=== PATIENT | male | born 1975 | race Caucasian/White ===

== ENCOUNTER 2017-07-25 15:38 | Emergency (ER) | payer MEDICAID, SELFPAY ==
[2017-07-25 15:39] VITALS: BP 147/104; PULSE 98; RESP 16; TEMP 36.7; O2SAT 98; BMI 26.5
--- NOTE | 2017-07-25 16:13 | CT_ITS ---
CT Abdomen And Pelvis W/ Contrast INDICATION: RIGHT SIDED PAIN X 1 YEAR BUT WORSE PAST 2 DAYS,NAUSEA AND CONSTIPATION, PRIOR CHOLECYSTECTOMY,MVP COMPARISON: None TECHNIQUE: Axial CT imaging of the abdomen and pelvis with oral and IV contrast. Coronal and sagittal reformatted images. Radiation dose optimization technique applied. 100 mL of Isovue-300 were given intravenously. FINDINGS: Subsegmental atelectasis are seen in the posterior lung bases. The heart size is normal. The liver, spleen, adrenal glands, and pancreas are unremarkable. The gallbladder is surgically absent. The kidneys are without evidence of hydronephrosis. Bilateral small cortical renal cysts are noted and a 4 mm nonobstructing renal calculus in the inferior pole region of the right kidney. Oral contrast material advances regularly throughout the nondistended small bowel loops into the proximal colon. The appendix is unremarkable. There is scattered distal colonic diverticulosis without evidence of acute diverticulitis. The urinary bladder is physiologically distended and appears otherwise unremarkable. There is no evidence of free air or free fluid. The osseous structures are age-appropriate. CT/Abdomen/Pelvis WITH Contrast IMPRESSION: No convincing CT evidence of acute intra-abdominal or pelvic pathology. Normal appendix. Status post cholecystectomy. Nonobstructing right renal calculus. Small bilateral renal cysts. Scattered distal colonic diverticulosis without evidence of acute diverticulitis. at 1853 Reported and signed by: Kaylee Crum MD Electronically Signed: Kaylee Crum MD at 17:51 EST Tel , Service support ,
--- NOTE | 2017-07-25 16:13 | ED.VISSUMM ---
- ER Visit Summary Date of Service: 07/25/17 Chief Complaint: Abdominal pain History of Present Illness: The patient is a 41 M who presents with abdominal pain for 2-3 months. It waxes and wanes in intensity. Patient states it is worse after eating and with deep breaths and improves with a heating pad. He has associated nausea but denies vomiting. He describes it as a bloated sensation. He denies diarrhea but endorses constipation, with last bowel movement 3 days ago. He ate pizza and eggs today with severe worsening of his pain. He states he is seen as primary care doctor for this and had a negative CT scan. He was started on Maalox but no other medications. Patient states last year he had a colonoscopy and an upper endoscopy for similar symptoms and had polyps that were removed but no other findings. History of cholecystectomy. Kidney stones. Mitral valve prolapse. Physical Examination: Vital signs: afebrile, hemodynamically stable, no hypoxia on room air General: well nourished, well developed, in no distress Skin: warm, dry, no rash, no pallor HEENT: normocephalic and atraumatic; PERRL, EOMI, moist mucous membranes Cardiovascular: regular rate and rhythm without murmurs, no peripheral edema, 2+ pulses all distal extremities Respiratory: No increased work of breathing, lungs have mild rhonchi consistent with smoker's lung Abdominal: Abdomen is soft, diffusely tender with hyperactive bowel sounds, no guarding or rebound, no masses MSK: Moves all extremities, no deformities, normal strength Neuro: Awake and alert, oriented ?4. No facial droop, sensation and motor function intact and symmetric Test Results: Abnormal Lab Results 07/25/17 07/25/17 07/25/17 16:19 16:19 16:44 WBC 6.7 RBC 4.39 L Hgb 13.5 Hct 41.2 MCV 93.8 MCH 30.8 MCHC 32.8 RDW 14.0 RDW Differential 47.9 H Plt Count 171 MPV 10.3 Immature Gran % (Auto) 0.100 Neut % (Auto) 67.4 Lymph % (Auto) 22.6 Taliaferro % (Auto) 7.2 Eos % (Auto) 2.4 Baso % (Auto) 0.3 Absolute Neuts (auto) 4.5 Absolute Lymphs (auto) 1.51 Total Counted Not Reportable Sodium 139 Potassium 4.1 Chloride 106 Carbon Dioxide 25.0 Anion Gap 8 BUN 13 Creatinine 1.01 Estim Creat Clear Calc 97.37 Est GFR (MDRD) Af Amer 103 Est GFR (MDRD) Non-Af 85 BUN/Creatinine Ratio 12.9 Glucose 104 Calcium 8.8 Total Bilirubin 0.30 AST 47 H ALT 33 Alkaline Phosphatase 78 Total Protein 7.3 Albumin 3.7 Globulin 3.6 Albumin/Globulin Ratio 1.0 Lipase 178 Urine Color Yellow Urine Clarity Cloudy Urine pH 8.0 Ur Specific [place] 1.015 Urine Protein Negative Urine Glucose (UA) Normal Urine Ketones Negative Urine Occult Blood 25 H Urine Nitrite Negative Urine Bilirubin Negative Urine Urobilinogen Normal Ur Leukocyte Esterase Negative Urine RBC 0-5 SEEN Urine WBC 0 SEEN Ur Squamous Epith Cells 0-5 SEEN Amorphous Sediment 1+ Urine Bacteria RARE Urine Mucus 0 SEEN Emergency Department Course and Treatment: Patient presents for abdominal pain that has been worked up by his primary care doctor and by a GI specialist. Patient is complaining of worsening pain and does not have a CT scan with contrast recently, thus lab work and a CT scan were repeated. Labs were unremarkable, including no hepatic derangements or elevated lipase. CT of the abdomen and pelvis was performed with IV and p.o. contrast. It was unremarkable for any pathology to explain patient's current symptoms. He was given IV fluids, and a GI cocktail. He stated that made it worse. He was then given Bentyl and a prescription for Protonix and Bentyl. He is to follow-up with his doctor for further workup. We discussed that there is nothing further workup monroy that can be performed in the emergency department. He requested an MRI and I explained to him that that was not an emergency department test that is even indicated. She was discharged home. Treatment Plan: [] Disposition: [] Impression: Chronic abdominal pain This note was generated with [employer] dictation software. 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 You had normal blood work today and a normal CT scan of the abdomen and pelvis that was done with oral and IV contrast dye. Please use the Bentyl as needed for abdominal pain. Take the omeprazole to help with stomach acid. Avoid acidy foods, greasy foods, tomato-based foods, and receive foods to see if this helps her stomach pain. Return to the emergency department if you have any further concerns.
--- NOTE | 2017-07-25 16:16 | ED.DCSUM_ITS ---
- ER Visit Summary Date of Service: 07/25/17 Chief Complaint: Abdominal pain History of Present Illness: The patient is a 41 M who presents with abdominal pain for 2-3 months. It waxes and wanes in intensity. Patient states it is worse after eating and with deep breaths and improves with a heating pad. He has associated nausea but denies vomiting. He describes it as a bloated sensation. He denies diarrhea but endorses constipation, with last bowel movement 3 days ago. He ate pizza and eggs today with severe worsening of his pain. He states he is seen as primary care doctor for this and had a negative CT scan. He was started on Maalox but no other medications. Patient states last year he had a colonoscopy and an upper endoscopy for similar symptoms and had polyps that were removed but no other findings. History of cholecystectomy. Kidney stones. Mitral valve prolapse. Physical Examination: Vital signs: afebrile, hemodynamically stable, no hypoxia on room air General: well nourished, well developed, in no distress Skin: warm, dry, no rash, no pallor HEENT: normocephalic and atraumatic; PERRL, EOMI, moist mucous membranes Cardiovascular: regular rate and rhythm without murmurs, no peripheral edema, 2 + pulses all distal extremities Respiratory: No increased work of breathing, lungs have mild rhonchi consistent with smoker's lung Abdominal: Abdomen is soft, diffusely tender with hyperactive bowel sounds, no guarding or rebound, no masses MSK: Moves all extremities, no deformities, normal strength Neuro: Awake and alert, oriented ?4. No facial droop, sensation and motor function intact and symmetric Test Results: Abnormal Lab Results 07/25/17 07/25/17 07/25/17 16:19 16:19 16:44 WBC 6.7 RBC 4.39 L Hgb 13.5 Hct 41.2 MCV 93.8 MCH 30.8 MCHC 32.8 RDW 14.0 RDW Differential 47.9 H Plt Count 171 MPV 10.3 Immature Gran % (Auto) 0.100 Neut % (Auto) 67.4 Lymph % (Auto) 22.6 Bailey % (Auto) 7.2 Eos % (Auto) 2.4 Baso % (Auto) 0.3 Absolute Neuts (auto) 4.5 Absolute Lymphs (auto) 1.51 Total Counted Not Reportable Sodium 139 Potassium 4.1 Chloride 106 Carbon Dioxide 25.0 Anion Gap 8 BUN 13 Creatinine 1.01 Estim Creat Clear Calc 97.37 Est GFR (MDRD) Af Amer 103 Est GFR (MDRD) Non-Af 85 BUN/Creatinine Ratio 12.9 Glucose 104 Calcium 8.8 Total Bilirubin 0.30 AST 47 H ALT 33 Alkaline Phosphatase 78 Total Protein 7.3 Albumin 3.7 Globulin 3.6 Albumin/Globulin Ratio 1.0 Lipase 178 Urine Color Yellow Urine Clarity Cloudy Urine pH 8.0 Ur Specific [place] 1.015 Urine Protein Negative Urine Glucose (UA) Normal Urine Ketones Negative Urine Occult Blood 25 H Urine Nitrite Negative Urine Bilirubin Negative Urine Urobilinogen Normal Ur Leukocyte Esterase Negative Urine RBC 0-5 SEEN Urine WBC 0 SEEN Ur Squamous Epith Cells 0-5 SEEN Amorphous Sediment 1+ Urine Bacteria RARE Urine Mucus 0 SEEN Emergency Department Course and Treatment: Patient presents for abdominal pain that has been worked up by his primary care doctor and by a GI specialist. Patient is complaining of worsening pain and does not have a CT scan with contrast recently, thus lab work and a CT scan were repeated. Labs were unremarkable, including no hepatic derangements or elevated lipase. CT of the abdomen and pelvis was performed with IV and p.o. contrast. It was unremarkable for any pathology to explain patient's current symptoms. He was given IV fluids, and a GI cocktail. He stated that made it worse. He was then given Bentyl and a prescription for Protonix and Bentyl. He is to follow-up with his doctor for further workup. We discussed that there is nothing further workup monroy that can be performed in the emergency department. He requested an MRI and I explained to him that that was not an emergency department test that is even indicated. She was discharged home. Treatment Plan: [] Disposition: [] Impression: Chronic abdominal pain This note was generated with [employer] dictation software. 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 You had normal blood work today and a normal CT scan of the abdomen and pelvis that was done with oral and IV contrast dye. Please use the Bentyl as needed for abdominal pain. Take the omeprazole to help with stomach acid. Avoid acidy foods, greasy foods, tomato- based foods, and receive foods to see if this helps her stomach pain. Return to the emergency department if you have any further concerns.
[2017-07-25 16:34] LABS: Absolute Lymphocyte Count 1.51 X10^3/ul (0.83-4.51); Absolute Neutrophil Count 4.5 X10^3/uL (2.0-7.7); Basophil# 0.02 X10^3/uL; Basophil% 0.3 % (0-1); Eosinophil# 0.16 X10^3/uL; Eosinophils% 2.4 % (0-5); Hematocrit 41.2 % (40-54); Hemoglobin 13.5 g/dl (13.0-16.5); Lymphocyte # 1.51 X10^3/ul (4.0); Lymphocyte % 22.6 % (19-41); Mean Corp Hgb Conc 32.8 g/gl (32-36); Mean Corpuscular Hgb 30.8 pg (27.0-32.0); Mean Corpuscular Volume 93.8 fL (80-94); Mean Platelet Vol. 10.3 fl (6.2-12.0); Monocyte# 0.48 X10^3/uL; Monocyte% 7.2 % (0-10); Neutrophil # 4.51 X10^3/uL (2.7-7.7); Neutrophil % 67.4 % (47-70); POSITIVE COUNT NO; POSITIVE DIFFERENTIAL NO; POSITIVE MORPHOLOGY NO; Platelet Count 171 K/mm3 (150-450); RBC Distribution Width SD 47.9 fl (35.1-43.9); Red Blood Count 4.39 M/mm3 (4.6-6.2); White Blood Count 6.7 K/mm3 (4.4-11.0)
[2017-07-25] MEDS: 0.9% Normal Saline 1,000 ML 1000 ML IV (16:40)
[2017-07-25 16:50] LABS: Mucous, Urine 0 SEEN /hpf (<or=2+); White Blood Cells 0 SEEN /hpf (0-5)
[2017-07-25 16:53] LABS: Color, Urine Yellow (Yellow); Glucose, Dipstick Normal (Normal); Ketone-Dipstick Negative (Negative); Leukocyte Esterase-Dipstick Negative /ul (Negative); Nitrite-Dipstick Negative (Negative); Occult Blood-Urine 25 /ul (Negative); Protein-Dipstick Negative (Negative); Specific Gravity, Urine 1.015 (1.002-1.030); Urine Bilirubin Dipstick Negative (Negative); Urine Clarity Cloudy (Clear); Urine Urobilinogen Normal (Normal)
[2017-07-25 16:58] LABS: AST(SGOT) 47 U/L (15-37); Alanine Aminotransfer ALT/SGPT 33 U/L (12-78); Albumin, Serum 3.7 g/dL (3.4-5.0); Alkaline Phosphatase 78 U/L (45-117); Anion Gap 8 (5-15); BUN 13 mg/dL (7-18); BUN/Creat Ratio 12.9 RATIO (10-20); Calcium,Total 8.8 mg/dL (8.5-10.1); Chloride 106 mmol/L (98-107); Creatinine, Serum 1.01 mg/dL (0.70-1.30); EST Glomerular Filtration Rate 85 mL/min (>60); Est Glom Filt Rate - Afr Amer 103 mL/min (>60); Estimated Creatinine Clearance 97.37 ml/min; Globulin 3.6 g/dL (2.2-4.2); Glucose 104 mg/dL (70-110); Lipase 178 U/L (73-393); Potassium 4.1 mmol/L (3.5-5.1); Protein, Total 7.3 g/dL (6.4-8.2); Sodium Level 139 mmol/L (136-145)
[2017-07-25 17:04] LABS: Amorphous Sediment 1+; Bacteria RARE /hpf (None Seen); Red Blood Cells-Urine 0-5 SEEN /hpf (0-5); Squamous Epithelial Cells - UA 0-5 SEEN /hpf (0-5)
--- NOTE | 2017-07-25 19:23 | ED.DEP ---
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 You had normal blood work today and a normal CT scan of the abdomen and pelvis that was done with oral and IV contrast dye. Please use the Bentyl as needed for abdominal pain. Take the omeprazole to help with stomach acid. Avoid acidy foods, greasy foods, tomato-based foods, and receive foods to see if this helps her stomach pain. Return to the emergency department if you have any further concerns.
[2017-07-25] MEDS: Dicyclomine 10 MG Capsule 20 MG PO (19:26)
[2017-07-25 19:28] VITALS: BP 145/95; PULSE 78; RESP 16; O2SAT 97
== END 2017-07-25 19:34 | disposition home or self-care (01) ==
PROVIDERS: Emergency Provider Emergency Medicine; Family Provider Family Medicine; PCP Family Medicine
DX: G89.29 Other chronic pain (principal); R10.9 Unspecified abdominal pain; K59.00 Constipation, unspecified; Z72.0 Tobacco use; Z87.442 Personal history of urinary calculi; Z90.49 Acquired absence of other specified parts of digestive tract
CPT/HCPCS: 74177; 80053; 81001; 83690; 85025; 96360; 99284; J7030; Q9967; A4216

== ENCOUNTER 2018-01-09 12:11 | Emergency (ER) | payer MEDICAID, SELFPAY ==
[2018-01-09 12:13] VITALS: BP 138/100; PULSE 72; RESP 16; TEMP 36.9; O2SAT 98; BMI 29.4
--- NOTE | 2018-01-09 12:31 | ED.VISSUMM ---
- ER Visit Summary Date of Service: 01/09/18 Chief Complaint: [Head injury] History of Present Illness: The patient is a 42 M [presents the emergency department with complaint of a head injury that occurred 5 days ago. Patient states he was helping a friend and was cranking on a crank from a semi-trailer when it excellently spun back and struck him in the right side of the head. Patient did not have a loss of consciousness. Patient was seen at [facility] and had his laceration repaired on the initial visit but had no imaging. Patient states that he continued to have a headache and went back the following day at which time they did a CAT scan of his brain which was unremarkable. Patient states that he is concerned as he is having ongoing drowsiness typically around midday. Patient having intermittent headaches. 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 Patient's had some mild nausea intermittently but no vomiting. Patient denies any difficulty with balance or speech.] Physical Examination: [HEENT-PERRLA, EOMI. Cranial nerves II through XII grossly intact. TMs clear. Mucous membranes moist. No adenopathy. There is approximately 3 cm laceration over the right parietal scalp that is healing well. No signs of infection. There is no evidence of swelling or edema to the right side of the scalp or head. Cardiovascular-regular rate and rhythm without murmur or ectopy Lungs-clear to auscultation, chest wall stable without crepitus or subcu emphysema Abdomen-normoactive bowel sounds, soft, nontender, no rebound or rigidity, no peritoneal signs. Neuro [id number]-pkwl and heel to rucker testing within normal limits, negative Romberg, negative pronator drift, fundi benign. Extremities-intact ?4, normal range of motion, normal pulses, atraumatic] Test Results: [None indicated] Emergency Department Course and Treatment: [Patient advised use ibuprofen or Tylenol for discomfort. I suspect patient likely has a postconcussive type syndrome and I do not feel any further imaging is dictated at this time.] Treatment Plan: [Patient to follow-up with his primary care physician in 2 days for suture removal. Patient advised to return if vomiting, difficulty with balance or speech, or condition should worsen in any way.] Disposition: [Discharged home in stable condition] Impression: [Concussion] This note was generated with [employer] dictation software. It may contain incorrect words, spelling, and punctuation that were not noted in review of the chart prior to signing ED Disposition - Plan for ED Patient: Chief Complaint: General Illness Referrals: Bernardo Agustin MD [Primary Care Provider] -
--- NOTE | 2018-01-09 12:35 | ED.DCSUM_ITS ---
- ER Visit Summary Date of Service: 01/09/18 Chief Complaint: [Head injury] History of Present Illness: The patient is a 42 M [presents the emergency department with complaint of a head injury that occurred 5 days ago. Patient states he was helping a friend and was cranking on a crank from a semi-trailer when it excellently spun back and struck him in the right side of the head. Patient did not have a loss of consciousness. Patient was seen at [facility] and had his laceration repaired on the initial visit but had no imaging. Patient states that he continued to have a headache and went back the following day at which time they did a CAT scan of his brain which was unremarkable. Patient states that he is concerned as he is having ongoing drowsiness typically around midday. Patient having intermittent headaches. 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 Patient's had some mild nausea intermittently but no vomiting. Patient denies any difficulty with balance or speech.] Physical Examination: [HEENT-PERRLA, EOMI. Cranial nerves II through XII grossly intact. TMs clear. Mucous membranes moist. No adenopathy. There is approximately 3 cm laceration over the right parietal scalp that is healing well. No signs of infection. There is no evidence of swelling or edema to the right side of the scalp or head. Cardiovascular-regular rate and rhythm without murmur or ectopy Lungs-clear to auscultation, chest wall stable without crepitus or subcu emphysema Abdomen-normoactive bowel sounds, soft, nontender, no rebound or rigidity, no peritoneal signs. Neuro firt-ikmfoc-ycbv and heel to rucker testing within normal limits, negative Romberg, negative pronator drift, fundi benign. Extremities-intact ?4, normal range of motion, normal pulses, atraumatic] Test Results: [None indicated] Emergency Department Course and Treatment: [Patient advised use ibuprofen or Tylenol for discomfort. I suspect patient likely has a postconcussive type syndrome and I do not feel any further imaging is dictated at this time.] Treatment Plan: [Patient to follow-up with his primary care physician in 2 days for suture removal. Patient advised to return if vomiting, difficulty with balance or speech, or condition should worsen in any way.] Disposition: [Discharged home in stable condition] Impression: [Concussion] This note was generated with [employer] dictation software. It may contain incorrect words, spelling, and punctuation that were not noted in review of the chart prior to signing ED Disposition - Plan for ED Patient: Chief Complaint: General Illness Referrals: Bernardo Agustin MD [Primary Care Provider] -
--- NOTE | 2018-01-09 12:35 | ED.DEP ---
ED Disposition - Plan for ED Patient: Chief Complaint: General Illness Instructions: ED Concussion Referrals: Bernardo Agustin MD [Primary Care Provider] - 2 Days
== END 2018-01-09 12:45 | disposition home or self-care (01) ==
LOC: ED 12:41
PROVIDERS: Emergency Provider Emergency Medicine; Family Provider Family Medicine; PCP Family Medicine
DX: S06.0X0A Concussion without loss of consciousness, initial encounter (principal); W22.8XXA Striking against or struck by other objects, initial encounter; Y93.9 Activity, unspecified; Y92.89 Other specified places as the place of occurrence of the external cause; Y99.9 Unspecified external cause status; Z72.0 Tobacco use
CPT/HCPCS: 99282

== ENCOUNTER 2018-09-23 17:39 | Emergency (ER) | payer MEDICAID, SELFPAY ==
[2018-09-23 17:40] VITALS: BP 160/95; PULSE 82; RESP 16; TEMP 36.4; O2SAT 97; BMI 30.7
--- NOTE | 2018-09-23 18:41 | ED.VISSUMM ---
- ER Visit Summary Date of Service: 09/23/18 Chief Complaint: Abdominal pain and cramping History of Present Illness: The patient is a 42 M who presents with abdominal pain and cramping that began today. Patient states the pain is over the upper abdomen. Patient states he bent forward and felt some cramping in his abdomen. Patient states he was able to stretch and the cramping improved. Patient states he still has some pain over the upper abdomen. Patient states the pain is worse with movement. Patient denies any nausea or vomiting. Patient denies any diarrhea, melena, or hematochezia. Patient denies any urinary complaints. Physical Examination: Vital signs are stable. Patient is afebrile. Patient is in no acute distress. Oral mucosa is pink and moist. Neck is supple. Trachea is midline. Heart was regular rate and rhythm. Lungs are clear and equal bilateral. Abdomen is soft. Bowel sounds are normal. There is some mild upper abdominal tenderness. There is no rebound or guarding noted. Test Results: CBC, conference of metabolic profile, and lipase were obtained and were normal. Emergency Department Course and Treatment: Patient was given IV fluids. Patient felt better on reevaluation. Patient was instructed to follow-up with his primary care physician in 5-7 days. Patient was instructed to drink plenty of fluids. Patient understood and was agreeable with the plan. All questions were answered. Disposition: Discharge home Impression: Abdominal pain This note was generated with [employer] dictation software. It may contain incorrect words, spelling, and punctuation that were not noted in review of the chart prior to signing ED Disposition - Plan for ED Patient: Disposition: Home or Assisted Living Diagnosis: Abdominal pain in male Instructions: ED Abdominal Pain Unkn Cause Referrals: Bernardo Agustin MD [Primary Care Provider] - 1-2 Weeks
[2018-09-23 18:44] LABS: Absolute Lymphocyte Count 2.79 X10^3/ul (0.83-4.51); Absolute Neutrophil Count 6.1 X10^3/uL (2.0-7.7); Basophil# 0.01 X10^3/uL; Basophil% 0.1 % (0-1); Eosinophil# 0.04 X10^3/uL; Eosinophils% 0.4 % (0-5); Hematocrit 41.2 % (40-54); Hemoglobin 13.9 g/dl (13.0-16.5); Lymphocyte # 2.79 X10^3/ul (4.0); Lymphocyte % 28.9 % (19-41); Mean Corp Hgb Conc 33.7 g/gl (32-36); Mean Corpuscular Hgb 30.4 pg (27.0-32.0); Mean Corpuscular Volume 90.2 fL (80-94); Mean Platelet Vol. 10.2 fl (6.2-12.0); Monocyte# 0.68 X10^3/uL; Monocyte% 7.1 % (0-10); Neutrophil # 6.09 X10^3/uL (2.7-7.7); Neutrophil % 63.2 % (47-70); Platelet Count 226 K/mm3 (150-450); RBC Distribution Width CV 13.3 % (11.6-14.6); RBC Distribution Width SD 43.7 fl (35.1-43.9); Red Blood Count 4.57 M/mm3 (4.6-6.2); White Blood Count 9.6 K/mm3 (4.4-11.0)
[2018-09-23 18:45] LABS: POSITIVE COUNT NO; POSITIVE DIFFERENTIAL NO; POSITIVE MORPHOLOGY NO
[2018-09-23] MEDS: 0.9% Normal Saline 1,000 ML 1000 ML IV (18:50)
[2018-09-23 18:57] LABS: AST(SGOT) 39 U/L (15-37); Alanine Aminotransfer ALT/SGPT 37 U/L (16-61); Albumin, Serum 3.7 g/dL (3.2-5.0); Alkaline Phosphatase 89 U/L (45-117); Anion Gap 4 (5-15); BUN 17 mg/dL (7-18); BUN/Creat Ratio 15.2 RATIO (10-20); Chloride 107 mmol/L (98-107); Creatinine, Serum 1.12 mg/dL (0.70-1.30); EST Glomerular Filtration Rate 75 mL/min (>60); Est Glom Filt Rate - Afr Amer 91 mL/min (>60); Globulin 3.8 g/dL (2.2-4.2); Glucose 94 mg/dL (74-106); Lipase 117 U/L (73-393); Potassium 3.5 mmol/L (3.5-5.1); Protein, Total 7.5 g/dL (6.4-8.2); Sodium Level 138 mmol/L (136-145)
[2018-09-23 19:37] VITALS: RESP 18; O2SAT 99
== END 2018-09-23 19:38 | disposition home or self-care (01) ==
PROVIDERS: Emergency Provider Emergency Medicine; Family Provider Family Medicine; PCP Family Medicine
DX: R10.9 Unspecified abdominal pain (principal); M54.9 Dorsalgia, unspecified; E66.9 Obesity, unspecified; R06.09 Other forms of dyspnea; F17.210 Nicotine dependence, cigarettes, uncomplicated; Z79.82 Long term (current) use of aspirin; M19.90 Unspecified osteoarthritis, unspecified site
CPT/HCPCS: 80053; 83690; 85025; 96360; 99283

== ENCOUNTER 2018-12-09 16:09 | Observation (INO) | payer MEDICAID, SELFPAY ==
[2018-12-09 16:15] VITALS: BMI 31.0
[2018-12-09 16:17] VITALS: BP 126/76; PULSE 67; RESP 14; TEMP 36.6; O2SAT 97
[2018-12-09 16:38] VITALS: BMI 31.1
[2018-12-09 16:56] VITALS: PULSE 67
--- NOTE | 2018-12-09 17:22 | HP.PCM_ITS ---
<Ezequiel Mckeon - Last Filed: 12/09/18 17:18> Problem List (1) Chest pain Status: Acute (2) Mitral valve prolapse Status: Chronic (3) HTN (hypertension) Status: Chronic (4) Obesity Status: Chronic (5) Hiatal hernia Status: Chronic (6) GERD (gastroesophageal reflux disease) Status: Chronic (7) Thyroid nodule Status: Chronic (8) Osteoarthritis Status: Chronic (9) Spinal stenosis Status: Chronic (10) Tobacco abuse Status: Chronic History of Present Illness Date of Admission: 12/09/18 Chief Complaint: chest pain The patient is a 43 year old M with pmhx of heavy mcfp smoking, mitral valve prolapse, htn, GERD, hiatal hernia, thyroid nodule, spinal stenosis, osteoarthritis, who was sent here by [facility] where he c/o SOB and CP. He Has been SOB for the past two weeks. Later, he developed intermittent chest pains. These are described as right upper chest sharp pains. Today he looked up at a helicopter, became dizzy, and had chest pain return. He had complete resolution of this pain with 3x nitroglycerin in the ER. Currently he has no symptoms. EKG, CXR, and initial labs were unremarkable. He was supposed to have an outpatient echo, stress test, and thyroid ultrasound this week but his CP worsened. His father and mother had heart dz. He denies coronary disease. [] Past Medical History Past Medical History (Chronic Problems): Chronic Problems Mitral valve prolapse (Chronic) HTN (hypertension) (Chronic) Obesity (Chronic) Hiatal hernia (Chronic) GERD (gastroesophageal reflux disease) (Chronic) Thyroid nodule (Chronic) Osteoarthritis (Chronic) Spinal stenosis (Chronic) Tobacco abuse (Chronic) Allergies hydrocodone bitartrate [From Vicodin] Adverse Reaction (Verified 09/23/18 17:41) Nausea Home Medications: Ambulatory Orders Medication Instructions Recorded Aspirin [Aspirin, Baby] 81 mg PO DAILY@0800 01/09/18 Albuterol IH (ProAir) [Proair Hfa 2 puff INHALATION Q4H PRN PRN 12/09/18 (SP)Vent Pts] Bupropion HCl [Bupropion HCl Sr] 1 tab PO BID 12/09/18 Gabapentin [Neurontin] 300 mg PO TIDCM 12/09/18 Hydrochlorothiazide [Hctz] 25 mg PO QHS 12/09/18 Meloxicam 15 mg PO DAILY PRN 12/09/18 Pantoprazole Sodium [Protonix] 40 mg PO DAILY 12/09/18 Surgical History: cholecystectomy, - - Tib-fib surgery. Psychiatric History: Prior suicide attempt - Via overdose several years ago. Lives: With Family Smoking Status: Current every day smoker Tobacco Use: Cigarettes Alcohol: None Drugs: None - *Family History Maternal History Items: Heart Disease Paternal History Items: Heart Disease Review of Systems Constitutional: Denies: Chills, Fever, Weight Change HEENT: Denies: Head Aches, Sinus Congestion, Sinus Drainage Cardiovascular: Reports: Chest Pain, Light Headedness. Denies: Edema, Heaviness, Palpitations Respiratory: Denies: Cough, Shortness of breath at rest, Sputum production Gastrointestinal: Denies: Abdominal Pain, Nausea, Vomiting Genitourinary: Denies: Dysuria Musculoskeletal: Denies: Joint Pain, Joint Tenderness Skin: Denies: Rash, Wounds Neurological: Denies: Numbness, Tingling, Focal weakness Psychiatric: Denies: Anxiety, Depression, Homicidal Ideations, Suicidal Ideations Hematologic/ Lymphatic: Denies: Easy Bruising, Easy Bleeding VTE Information - Inpt Only VTE Present on Admission: No VTE Mechan Device Prophylaxis: None VTE Pharm Prophylaxis ordered?: Yes - Physical Exam General: Alert, Oriented x3, Cooperative HEENT: Atraumatic, PERRLA, EOMI, Normocephalic Neck: Supple, No JVD, Negative Carotid Bruits Lungs: Clear to auscultation, Normal air movement Cardiovascular: Regular rate, No murmurs Abdomen: Bowel Sounds Present, Soft, Non Tender Extremities: No edema, Capillary Refill Less than 3 Seconds Skin: No rashes, No breakdown Musculoskeletal: No Tenderness to Palpation of Joints or Extremities Neurological: Cranial nerves II-XII grossly intact Psych/Mental Status: Normal Affect, Appropriate, Alert and oriented to time, place, person, mood and affect Vital Signs Temp Pulse Resp BP Pulse Ox 98 F 67 14 126/76 H 97 12/09/18 16:17 12/09/18 16:56 12/09/18 16:17 12/09/18 16:17 12/09/18 16:17 Oxygen Delivery Method Room Air Weight: 216 lb 7.903 oz Body Mass Index (BMI) 31.0 Assessment/Plan All Active Problems Chest pain (Acute) 1. Chest pain - cycle enzymes, reviewed initial EKG and admission EKG, CXR report, and initial troponin - negative. Stress test in AM. + fm hx, + hx MVP, +hx HTN, +smoking hx +obesity hx. Concerning symptoms: + CP, SOB, dizziness, LH. 2. MVP - repeat echo 3. HTN - trend 4. Nicotine abuse - started wellbutrin as o/p, cut back from 2ppd to 1 ppd. 5. GERD/Hiatal hernia - ppi, o/p follow up 6. Thyroid nodule - o/p US. Check TSH. 7. Osteoarthritis and spinal stenosis - hold nsaids. DVT ppx: lovenox This patient was seen by Ezequiel Mckeon PA-C under the supervision of Dr. Goodman. <Roxanne Goodman - Last Filed: 12/09/18 20:38> Problem List (1) Mitral valve prolapse Status: Chronic (2) HTN (hypertension) Status: Chronic Qualifiers: Hypertension type: essential hypertension Qualified Code(s): I10 - Essential (primary) hypertension (3) Obesity Status: Chronic Qualifiers: Body mass index: unspecified BMI (4) GERD (gastroesophageal reflux disease) Status: Chronic Qualifiers: Esophagitis presence: esophagitis presence not specified Qualified Code(s): K21.9 - Gastro-esophageal reflux disease without esophagitis (5) Chest pain Status: Acute Qualifiers: Ischemic chest pain type: unspecified angina pectoris type History of Present Illness The patient is a 43 year old M [] Past Medical History Allergies hydrocodone bitartrate [From Vicodin] Adverse Reaction (Verified 09/23/18 17:41) Nausea - Physical Exam Vital Signs Temp Pulse Resp BP Pulse Ox 98 F 72 14 126/76 H 97 12/09/18 16:17 12/09/18 19:00 12/09/18 16:17 12/09/18 16:17 12/09/18 16:17 Oxygen Delivery Method Room Air Weight: 98.2 kg Body Mass Index (BMI) 31.0 Intake and Output for Last 24 Hours 12/07/18 12/08/18 12/09/18 23:59 23:59 23:59 Intake Total 480 / 480 Balance 480 / 480 Laboratory Tests Past 24 Hrs 12/09/18 18:20 Troponin I < 0.015 Assessment/Plan This patient was seen in conjunction with YRIS Farias. I have independently interviewed and examined the patient and reviewed pertinent historical, laboratory, and other data. Please refer to YRIS Farias note for his patient's presentation, findings, and recommendations. I have reviewed and his note and concur with his documentation CC: Chest pain HPI: 43-year-old male with past medical history of hypertension, history of mitral valve prolapse, nicotine dependence, recently started on Wellbutrin who comes in as a direct admission from [place] ED with complaints of chest pain. He complains of having chest pain ongoing for 2 weeks. He describes his chest pain as substernal sometimes right-sided, stabbing in nature, associated with some lightheadedness. He has a stress test pending this week. This has been coming and going. Today he saw a helicopter passed by and looked up and became very dizzy and had return of his chest pain. He went to the emergency department and had complete resolution of his pain with 3 of nitro. His admitting blood work and EKG was unremarkable as well as an initial troponin. PMHX: In addition to the above, patient has history of CAD/heart INR, thyroid nodule, osteoarthritis/spinal stenosis PSHx: Status post cholecystectomy, status post tib/fib surgery FHX: Mother -heart disease, paternal - heart disease SHX: Lives with , recently quit smoking, on Wellbutrin Physical Exam: Vitals: Temperature 98F, heart rate 57, blood pressure 126/76, respiratory rate is 40, SPO2 is 97% on room air Gen: Comfortable, not pale, not jaundiced, well hydrated CVS:HS I +II, regular, no murmurs RESP: Clinically clear to auscultation GI: BS present and normal, soft, nontender, no palpable organs EXT:No edema ASSESSMENT: 1. Chest pain 2. Recent nicotine use 3. Mitral valve prolapse 4. GERD/Hiatal hernia 5. Hypertension 6. Osteoarthritis/spinal stenosis Plan: Admit to PCU, trend troponin Stress test in am ECHO Continue home medications except for meloxicam Labs in am Code Visit OBSV E&M: [id number] Initial observation care L3
--- NOTE | 2018-12-09 18:00 | EKG12_ITS ---
Test Reason : CP ADMISSION Blood Pressure : / mmHG Vent. Rate : 062 BPM Atrial Rate : 062 BPM P-R Int : 166 ms QRS Dur : 100 ms QT Int : 408 ms P-R-T Axes : 038 -15 018 degrees QTc Int : 414 ms Normal sinus rhythm Normal ECG When compared with ECG of 27-FEB-2017 20:53, No significant change was found Confirmed by EMIGDIO TAVAREZ ([id number]), food editor NANDO STEIN ([id number]) on 12/13/2018 1:37:28 PM Referred By: Roxanne Goodman Confirmed By:JAYSHREE TAVAREZ
[2018-12-09 19:00] VITALS: PULSE 72
--- NOTE | 2018-12-09 19:08 | ECHOD_ITS ---
Reason For Study: Chest Pain Procedure This was a 2D Doppler, Color Flow transthoracic echocardiogram. Exam performed in department. Left Ventricle Normal size and thickness. Left ventricular systolic function is normal. The estimated ejection fraction is 60 %. Normal diastology for age. No regional wall motion abnormalities noted. Right Ventricle Normal RV size. Normal systolic function. Atria Normal left atrium. Normal right atrium. No doppler evidence for ASD. Mitral Valve There is no mitral valve stenosis. No mitral valve insufficiency. Tricuspid Valve There is no tricuspid stenosis. Unable to estimate RV systolic pressure due to insufficient tricuspid regurgitant envelope. Trivial tricuspid valve insufficiency. Aortic Valve Trisinus/trileaflet aortic valve. There is no aortic stenosis. No aortic valve insufficiency. Pulmonic Valve There is no pulmonic valvular stenosis. No pulmonic valve insufficiency. Great Vessels Normal aortic root. Pericardium/Pleural No pericardial effusion. MMode/2D Measurements & Calculations LVIDd: 4.2 cm IVSd: 1.0 cm Ao root diam: 2.5 cm LVIDs: 2.3 cm LVPWd: 1.1 cm LA dimension: 3.0 cm FS: 44.2 % LAV(MOD-bp): 43.0 ml LA A4 area: 16.9 cm2 RA A4 area: 14.2 cm2 LAV(MOD-bp) Indexed: 20.0 ml/m2 LAV(MOD-sp2): 33.8 ml LAV(MOD-sp4): 37.7 ml Time Measurements MV dec time: 0.25 sec Doppler Measurements & Calculations MV E max james: 75.1 cm/sec Lat Peak E' James: 13.2 cm/sec Med Peak E' James: 11.0 cm/sec MV A max james: 52.8 cm/sec E/E' lat: 5.7 E/E' med: 6.8 MV E/A: 1.4 MV V2 max: 81.5 cm/sec MV P1/2t max james: 81.5 cm/sec Ao V2 max: 118.8 cm/sec MV max P.7 mmHg MV P1/2t: 97.6 msec Ao max P.6 mmHg MV V2 mean: 40.5 cm/sec MV dec slope: 244.6 cm/sec2 Ao V2 mean: 80.3 cm/sec MV mean P.80 mmHg MVA(P1/2t): 2.3 cm2 Ao mean P.9 mmHg MV V2 VTI: 28.4 cm Ao V2 VTI: 23.1 cm LV V1 max: 109.6 cm/sec PA V2 max: 82.8 cm/sec LV V1 max P.8 mmHg LV V1 mean P.1 mmHg LV V1 mean: 66.4 cm/sec LV V1 VTI: 21.0 cm Interpretation Summary Left ventricular systolic function is normal. The estimated ejection fraction is 60 %. Normal diastology for age. Ordering Physician: Roxanne Goodman Referring Physician: Roxanne Goodman Performed By: Jordy Frye RCS
[2018-12-09 20:20] VITALS: O2SAT 97
[2018-12-09 22:00] VITALS: BP 102/51; PULSE 78; RESP 18; TEMP 36.5; O2SAT 95
[2018-12-09] MEDS: buPROPion (SR) 150 MG Tablet.SA PO (22:14)
[2018-12-10 03:06] VITALS: PULSE 72
[2018-12-10 03:31] VITALS: BP 105/69; PULSE 62; RESP 16; TEMP 36.7; O2SAT 94
[2018-12-10] MEDS: Aspirin 81 MG TAB.CHEW PO (05:35)
[2018-12-10 05:36] VITALS: BP 99/62; PULSE 66; RESP 16; TEMP 36.8; O2SAT 100
--- NOTE | 2018-12-10 05:55 | EKG12_ITS ---
Test Reason : AM EKG Blood Pressure : / mmHG Vent. Rate : 064 BPM Atrial Rate : 064 BPM P-R Int : 164 ms QRS Dur : 098 ms QT Int : 394 ms P-R-T Axes : 042 017 031 degrees QTc Int : 406 ms Normal sinus rhythm Normal ECG When compared with ECG of 09-DEC-2018 17:04, MANUAL COMPARISON REQUIRED, DATA IS UNCONFIRMED Confirmed by EMIGDIO TAVAREZ ([id number]), online content editor NANDO STEIN ([id number]) on 12/13/2018 1:36:39 PM Referred By: Roxanne Goodman Confirmed By:JAYSHREE TAVAREZ
[2018-12-10 07:32] LABS: Absolute Lymphocyte Count 1.77 X10^3/ul (0.83-4.51); Absolute Neutrophil Count 2.8 X10^3/uL (2.0-7.7); Basophil# 0.01 X10^3/uL; Basophil% 0.2 % (0-1); Eosinophil# 0.21 X10^3/uL; Eosinophils% 4.1 % (0-5); Hematocrit 42.4 % (40-54); Hemoglobin 14.1 g/dl (13.0-16.5); Lymphocyte # 1.77 X10^3/ul (4.0); Lymphocyte % 34.8 % (19-41); Mean Corp Hgb Conc 33.3 g/gl (32-36); Mean Corpuscular Volume 90.2 fL (80-94); Monocyte% 5.9 % (0-10); Platelet Count 191 K/mm3 (150-450); RBC Distribution Width CV 13.6 % (11.6-14.6); RBC Distribution Width SD 44.9 fl (35.1-43.9); White Blood Count 5.1 K/mm3 (4.4-11.0)
[2018-12-10 07:42] LABS: POSITIVE COUNT NO; POSITIVE DIFFERENTIAL NO; POSITIVE MORPHOLOGY NO
[2018-12-10 07:44] LABS: Anion Gap 2 (5-15); BUN 15 mg/dL (7-18); Calcium,Total 8.4 mg/dL (8.5-10.1); Chloride 109 mmol/L (98-107); Creatinine, Serum 1.36 mg/dL (0.70-1.30); EST Glomerular Filtration Rate 60 mL/min (>60); Est Glom Filt Rate - Afr Amer 73 mL/min (>60); Estimated Creatinine Clearance 70.82 ml/min; Glucose 108 mg/dL (74-106); Potassium 4.2 mmol/L (3.5-5.1); Sodium Level 137 mmol/L (136-145)
[2018-12-10 08:08] LABS: Prothrombin Time (Protime)PT. 13.3 SECONDS (11.7-14.9)
[2018-12-10 08:09] LABS: Partial Thromboplast Time 30.2 Seconds (24.1-36.2)
[2018-12-10 09:20] VITALS: BP 119/63; PULSE 66; RESP 16; TEMP 36.5; O2SAT 97
[2018-12-10] MEDS: Gabapentin 300 MG Capsule PO ×2 (09:23→12:20)
[2018-12-10] MEDS: Pantoprazole Sodium 40 MG Tablet PO (09:23)
[2018-12-10] MEDS: buPROPion (SR) 150 MG Tablet.SA PO (09:23)
[2018-12-10 09:50] VITALS: PULSE 82
--- NOTE | 2018-12-10 11:11 | STRESSREP ---
Stress Test Report Date: December 10, 2018 Procedure: Pharmacologic stress nuclear imaging study Indications: Chest pain Consent: Per the patient Procedure: The patient underwent pharmacologic (Regadenoson) evaluation with a peak heart rate of 125 beats per minute (71 %predicted maximal heart rate) and a peak blood pressure of 134/60 mmHg. The baseline ECG demonstrated sinus rhythm, nonspecific ST-T changes. EKG during lexiscan infusion revealed no significant ischemic response. EKG post infusion revealed significant ischemic response [There were no cardiac dysrhythmias pretest, during pharmacologic infusion, or recovery]. [There was no complaint of chest discomfort during pharmacologic infusion or recovery]. The examination was discontinued secondary to completion of protocol. Impression: 1. Lexiscan stress test test is negative for Lexiscan infusion induced EKG changes of ischemia. 2. Lexiscan stress test test negative for Lexiscan infusion induced chest pain. 3. Results of the nuclear portion of the test is as below Myocardial perfusion imaging study: Technique: The patient was injected with 14.1 millicuries of technetium 99m Cardiolite and subsequently rest SPECT Cardiolite nuclear imaging was obtained in the horizontal long, vertical long, and short axis views. The patient underwent pharmacologic (Regadenoson) evaluation. Please see above for details. The patient was injected with 44.5 millicuries of technetium 99m Cardiolite and subsequently stress SPECT Cardiolite nuclear imaging was obtained in the horizontal long, vertical long, and short axis views. A gated Cardiolite study at peak stress was obtained. Interpretation: Rest and stress SPECT Cardiolite nuclear imaging status post realignment, normalization, and attenuation correction demonstrate normal myocardial radioisotope uptake in the rest and stress images. Gated images reveal no significant regional wall motion abnormalities. The reported LVEF is 68 %. Impression: 1. There is no evidence of significant ischemia or infarction. 2. Estimated ejection fraction is 68%. This note was generated with OrderMy[employer] software. It may contain incorrect words, spelling, and punctuation that were not noted in checking the note before signing.
--- NOTE | 2018-12-10 11:44 | DCINST_ITS ---
- Discharge Diagnoses Current Active Problems: Current Active and Chronic Problems Mitral valve prolapse (Chronic) HTN (hypertension) (Chronic) Obesity (Chronic) Hiatal hernia (Chronic) GERD (gastroesophageal reflux disease) (Chronic) Thyroid nodule (Chronic) Osteoarthritis (Chronic) Spinal stenosis (Chronic) You will use the following diet at home:: Cardiac Your food should be the consistency of: Regular Your liquids should be the consistency of: Regular/Thin Discharge Activity: Return to Normal Activity Allergies/Adverse Reactions: Allergies hydrocodone bitartrate [From Vicodin] Adverse Reaction (Verified 09/23/18 17:41) Nausea Medications to take at Discharge Aspirin [Aspirin, Baby] 81 mg PO DAILY@0800 01/09/18 Albuterol IH (ProAir) [Proair Hfa] 2 puff INHALATION Q4H PRN PRN 12/09/18 Bupropion HCl [Bupropion HCl Sr] 1 tab PO BID 12/09/18 Gabapentin [Neurontin] 300 mg PO TIDCM 12/09/18 Hydrochlorothiazide [Hctz] 25 mg PO QHS 12/09/18 Meloxicam 15 mg PO DAILY PRN 12/09/18 Pantoprazole Sodium [Protonix] 40 mg PO DAILY 12/09/18 Primary Care Physician: Bernardo Agustin MD [Primary Care Provider] - Please follow up with your Primary Care Physician in: 1-2 weeks Test Results: Test results from this visit will be discussed in further detail at your follow- up appointment, if applicable. Proposed Discharge Date: 12/10/18
--- NOTE | 2018-12-10 13:16 | PCM.DC.SUM ---
Discharge Date and Diagnosis Date of Admission: 12/09/18 Date of Discharge: 12/10/18 - Primary Discharge Diagnosis Chest pain-musculoskeletal Hypertension Nicotine abuse Obesity GERD, hiatal hernia Thyroid nodule Osteoarthritis Spinal stenosis - Secondary Discharge Diagnosis Chronic Problems Mitral valve prolapse (Chronic) HTN (hypertension) (Chronic) Obesity (Chronic) Hiatal hernia (Chronic) GERD (gastroesophageal reflux disease) (Chronic) Thyroid nodule (Chronic) Osteoarthritis (Chronic) Spinal stenosis (Chronic) Tobacco abuse (Chronic) Hospital Course and Treatment Imaging Results: 12/10/18 05:55 Nuclear Stress Test - Chemical [NM] AM (NON MEDS) Impression: 1. There is no evidence of significant ischemia or infarction. 2. Estimated ejection fraction is 68%. Echo: Interpretation Summary Left ventricular systolic function is normal. The estimated ejection fraction is 60 %. Normal diastology for age. Operations: None Procedures: 2-D Echocardiogram Summary of Care Provided: Hospital Course: The patient is a 43 year old M with past medical history of hypertension, nicotine abuse, GERD, hiatal hernia, osteoarthritis, spinal stenosis, and reportedly a history of mitral valve prolapse who presented to the [place] emergency department with chest pain and shortness of breath. This is been going on for about 2 weeks, starting with shortness of breath and later developed been of intermittent chest pains described as sharp right upper chest pain. The day of presentation he looked up into the [place] at a helicopter he became dizzy and his chest pain returned prompting him to go to the emergency room. In the ER he was administered 3 nitroglycerin and had relief of his chest pain. Chest x-ray and troponin were negative. He was transferred to [facility] for chest pain work-up. Stress test was ordered given his chest pain and risk factors, and echocardiogram was performed given his history of mitral valve prolapse. He had no events on telemetry, troponin was negative on repeat testing, his repeat EKGs were negative. His stress test was negative for the following morning, and his echocardiogram was unremarkable and no mitral valve disease was noted. He was discharged home in stable condition and was advised to follow-up with his PCP in 1 to 2 weeks. This patient was seen by Ezequiel Mckeon PA-C under the supervision of Doctor Steele. [] - Physical Exam General: Alert, Oriented x3, Cooperative HEENT: Atraumatic, PERRLA, EOMI, Normocephalic Neck: Supple, No JVD, Negative Carotid Bruits Lungs: Clear to auscultation, Normal air movement Cardiovascular: Regular rate, No murmurs Abdomen: Bowel Sounds Present, Soft, Non Tender Extremities: No edema, Capillary Refill Less than 3 Seconds Skin: No rashes, No breakdown Musculoskeletal: No Tenderness to Palpation of Joints or Extremities Neurological: Cranial nerves II-XII grossly intact Psych/Mental Status: Normal Affect, Appropriate, Alert and oriented to time, place, person, mood and affect Vital Signs Temp Pulse Resp BP Pulse Ox 97.7 F L 82 16 119/63 97 12/10/18 09:20 12/10/18 09:50 12/10/18 09:20 12/10/18 09:20 12/10/18 09:20 Oxygen Delivery Method Room Air Weight: 215 lb 13.321 oz Body Mass Index (BMI) 31.0 Intake and Output for Last 24 Hours 12/08/18 12/09/18 12/10/18 23:59 23:59 23:59 Intake Total 720 / 720 150 / 150 Balance 720 / 720 150 / 150 Laboratory Tests Past 24 Hrs 12/09/18 12/09/18 12/10/18 18:20 21:15 00:20 WBC RBC Hgb Hct MCV MCH MCHC RDW RDW Differential Plt Count MPV Immature Gran % (Auto) Neut % (Auto) Lymph % (Auto) Mcleod % (Auto) Eos % (Auto) Baso % (Auto) Absolute Neuts (auto) Absolute Lymphs (auto) Total Counted PT INR APTT Sodium Potassium Chloride Carbon Dioxide Anion Gap BUN Creatinine Estim Creat Clear Calc Est GFR (MDRD) Af Amer Est GFR (MDRD) Non-Af BUN/Creatinine Ratio Glucose Calcium Troponin I < 0.015 < 0.015 < 0.015 12/10/18 12/10/18 12/10/18 06:30 06:30 06:30 WBC 5.1 RBC 4.70 Hgb 14.1 Hct 42.4 MCV 90.2 MCH 30.0 MCHC 33.3 RDW 13.6 RDW Differential 44.9 H Plt Count 191 MPV 11.0 Immature Gran % (Auto) 0.000 Neut % (Auto) 55.0 Lymph % (Auto) 34.8 Mcleod % (Auto) 5.9 Eos % (Auto) 4.1 Baso % (Auto) 0.2 Absolute Neuts (auto) 2.8 Absolute Lymphs (auto) 1.77 Total Counted Not Reportable PT 13.3 INR 1.0 APTT 30.2 Sodium 137 Potassium 4.2 Chloride 109 H Carbon Dioxide 26.0 Anion Gap 2 L BUN 15 Creatinine 1.36 H Estim Creat Clear Calc 70.82 Est GFR (MDRD) Af Amer 73 Est GFR (MDRD) Non-Af 60 BUN/Creatinine Ratio 11.0 Glucose 108 H Calcium 8.4 L Troponin I Discharge Diet: Low fat/ Low Cholesterol, 2000 mg Sodium Diet Discharge Activity: Return to Normal Activity Home Medications: Medications to take at Discharge Aspirin [Aspirin, Baby] 81 mg PO DAILY@0800 01/09/18 Albuterol IH (ProAir) [Proair Hfa] 2 puff INHALATION Q4H PRN PRN 12/09/18 Bupropion HCl [Bupropion HCl Sr] 1 tab PO BID 12/09/18 Gabapentin [Neurontin] 300 mg PO TIDCM 12/09/18 Hydrochlorothiazide [Hctz] 25 mg PO QHS 12/09/18 Meloxicam 15 mg PO DAILY PRN 12/09/18 Pantoprazole Sodium [Protonix] 40 mg PO DAILY 12/09/18 Primary Care Physician: Bernardo Agustin MD [Primary Care Provider] - Please follow up with your Primary Care Physician in: 1-2 weeks Disposition: Home Minutes spent on discharge:: 35 Patient Condition:: Stable Medical Necessity - Tobacco Use Smoking Status: Current every day smoker Tobacco Use: Cigarettes Meaningful Use Info Meaningful Use Diagnoses (Choose all that apply): None applicable
== END 2018-12-10 11:44 | disposition home or self-care (01) ==
PROVIDERS: Admitting Provider Internal Medicine; Family Provider Family Medicine; PCP Family Medicine; Referring Provider Internal Medicine; Visit Provider Internal Medicine
DX: R07.89 Other chest pain (principal); I10 Essential (primary) hypertension; E66.9 Obesity, unspecified; K21.9 Gastro-esophageal reflux disease without esophagitis; M19.90 Unspecified osteoarthritis, unspecified site; K44.9 Diaphragmatic hernia without obstruction or gangrene; E04.1 Nontoxic single thyroid nodule; R06.02 Shortness of breath; F17.210 Nicotine dependence, cigarettes, uncomplicated; Z68.31 Body mass index [BMI] 31.0-31.9, adult; Z71.3 Dietary counseling and surveillance; Z79.899 Other long term (current) drug therapy; Z79.82 Long term (current) use of aspirin; R42 Dizziness and giddiness
CPT/HCPCS: 36415; 78452; 80048; 84484; 85025; 85610; 85730; 93005; 93017; 93306; 97802; 99218; 99406; A9500; A4216; G0378; G0379; J2785

== ENCOUNTER 2019-04-19 17:29 | Emergency (ER) | payer SELFPAY ==
[2019-04-19] VITALS (8 sets, daily range): BP systolic 123–144; BP diastolic 63–87; PULSE 66–86; RESP 15–22; TEMP 36.7–37.1; O2SAT 93–99; BMI 25.8
--- NOTE | 2019-04-19 18:00 | EKG12_ITS ---
Test Reason : COUGH Blood Pressure : / mmHG Vent. Rate : 067 BPM Atrial Rate : 067 BPM P-R Int : 158 ms QRS Dur : 096 ms QT Int : 366 ms P-R-T Axes : 053 023 050 degrees QTc Int : 386 ms Normal sinus rhythm with sinus arrhythmia Normal ECG Confirmed by MARCUS REGAN, FRANSICO ([id number]), photography editor ELLI DUVAL ([id number] on 04/22/2019 10:56:18 AM Referred By: ARGELIA Confirmed By:FRANSICO VELAZQUEZ MD
[2019-04-19] MEDS: Ipratropium/Albuterol Sulfate 3 ML AMPUL.NEB INHALATION (18:11)
[2019-04-19 18:16] LABS: Absolute Lymphocyte Count 1.45 X10^3/uL (0.83-4.51); Absolute Neutrophil Count 9.9 X10^3/uL (2.0-7.7); Basophil# 0.01 X10^3/uL; Basophil% 0.1 % (0-1); Hematocrit 40.3 % (40-54); Hemoglobin 13.7 g/dL (13.0-16.5); Lymphocyte # 1.45 X10^3/ul (4.0); Lymphocyte % 12.6 % (19-41); Mean Corpuscular Hgb 30.9 pg (27.0-32.0); Mean Corpuscular Volume 90.8 fL (80-94); Mean Platelet Vol. 10.6 fl (6.2-12.0); Monocyte# 0.19 X10^3/uL; Monocyte% 1.6 % (0-10); NRBC Flagged by Analyzer 0 % (0-5); Neutrophil # 9.85 X10^3/uL (2.7-7.7); Neutrophil % 85.4 % (47-70); Platelet Count 213 K/mm3 (150-450); RBC Distribution Width CV 12.9 % (11.6-14.6); RBC Distribution Width SD 42.7 fl (35.1-43.9); Red Blood Count 4.44 M/mm3 (4.6-6.2); White Blood Count 11.5 K/mm3 (4.4-11.0)
--- NOTE | 2019-04-19 18:22 | ED.VISSUMM ---
- ER Visit Summary Date of Service: 04/19/19 Chief Complaint: Cough History of Present Illness: The patient is a 43 M presenting with cough. Patient states this started 2 weeks ago. He states he was starting to improve and over the past couple days he started to worsen again. He complains of productive cough. He has mild shortness of breath associated with this. He has had subjective fever and chills. Today he developed nausea, vomiting, diarrhea. He denies blood in his stool. Denies abdominal pain. He has been taking Mucinex at home. Denies chest pain. Denies other complaints. He is a smoker. Physical Examination: Vitals are stable. Patient is afebrile. Alert no acute distress. HEENT exam is unremarkable. Pharynx is normal Neck is supple. Lungs are clear and equal bilaterally. Heart is regular rate and rhythm. Abdomen is soft nontender nondistended. No guarding or rebound Extremities are unremarkable. Skin is warm and dry. No focal neurologic deficit. Remainder of exam is unremarkable. Emergency Department Course and Treatment: EKG sinus rhythm rate of 67 with no acute ischemic changes. Chest x-ray shows no acute process. CBC shows white count 11.5. Chemistries normal except glucose 194. Troponin is negative. He was given albuterol Atrovent aerosol. With ambulation he became short of breath, pulse ox remained over 94% on room air. He was given IV fluids, Toradol. Urinalysis shows 0-5 white blood cells, 10-[address] flank shows no acute abdominal or pelvic pathology demonstrated on this noncontrast CT. Bilateral nonobstructing stones. Colonic diverticulosis without evidence of inflammation. Delta troponin is negative. On reevaluation, patient is feeling improved. He is given albuterol MDI and Tessalon Perles. Advised to follow-up with primary care physician. Advised return to ED for worsening complaints. Disposition: Discharge home Impression: Bronchitis This note was generated with [employer] dictation software. It may contain incorrect words, spelling, and punctuation that were not noted in review of the chart prior to signing ED Disposition - Plan for ED Patient: Instructions: BRONCHITIS, No Antibiotic (Adult) Prescriptions: Benzonatate [Tessalon Perle] 200 mg PO TID PRN PRN #20 cap PRN Reason: Cough Prescription Printed Referrals: Bernardo Agustin MD [Primary Care Provider] -
[2019-04-19 18:37] LABS: Anion Gap 5 (5-15); BUN 15 mg/dL (7-18); BUN/Creat Ratio 13.5 RATIO (10-20); Chloride 109 mmol/L (98-107); Creatinine, Serum 1.11 mg/dL (0.70-1.30); EST Glomerular Filtration Rate 76 mL/min (>60); Est Glom Filt Rate - Afr Amer 92 mL/min (>60); Estimated Creatinine Clearance 86.77 ml/min; Glucose 194 mg/dL (74-106); Potassium 4.2 mmol/L (3.5-5.1); Sodium Level 138 mmol/L (136-145)
--- NOTE | 2019-04-19 18:40 | RAD_ITS ---
STUDY: X-RAY CHEST REASON FOR EXAM: Male, 43 years old. Cough TECHNIQUE: PA and lateral views of the chest COMPARISON: X-ray chest February 27, 2017 FINDINGS: The lungs are clear. There are no pleural effusions. There is no pneumothorax. The heart is normal in size. The visualized osseous structures are within normal limits. RAD/Chest PA and Lateral IMPRESSION: No acute thoracic pathology. Electronically Signed: Blanco Neal, at 19:06 EDT Tel , Service support ,
[2019-04-19 18:57] LABS: Bacteria 0 SEEN /hpf (None Seen); Mucous, Urine 0 SEEN /hpf (<or=2+); Squamous Epithelial Cells - UA 0 SEEN /hpf (0-5)
[2019-04-19 19:03] LABS: Color, Urine Yellow (Yellow); Glucose, Dipstick 1000 mg/dl (Normal); Ketone-Dipstick 5 mg/dl (Negative); Leukocyte Esterase-Dipstick Negative /ul (Negative); Nitrite-Dipstick Negative (Negative); Occult Blood-Urine 150 /ul (Negative); Protein-Dipstick Negative (Negative); Urine Bilirubin Dipstick Negative (Negative); Urine Clarity Sl. Cloudy (Clear); Urine Urobilinogen 1 mg/dl (Normal)
[2019-04-19 19:15] LABS: White Blood Cells 0-5 SEEN /hpf (0-5)
[2019-04-19 19:16] LABS: Red Blood Cells-Urine 10-25 SEEN /hpf (0-5)
--- NOTE | 2019-04-19 19:43 | CT_ITS ---
STUDY: CT ABDOMEN AND PELVIS WITHOUT CONTRAST REASON FOR EXAM: Male, 43 years old. Hematuria RADIATION DOSAGE (If Supplied By Facility): DLP = ( 558.21 ) mGycm TECHNIQUE: Transaxial images were obtained from the dome of the diaphragm to the symphysis pubis without oral contrast, and without intravenous contrast. Sagittal and coronal images were reconstructed. Individualized dose optimization techniques were used for this CT. COMPARISON: CT abdomen pelvis July 25, 2017 FINDINGS: Evaluation of the abdominal viscera is limited in the absence of intravenous contrast. Bibasilar atelectasis is present. The visualized portions of the heart and pericardium are within normal limits. There are no calcified gallstones present. The liver demonstrates an unremarkable unenhanced appearance. The spleen is normal in size. The pancreas demonstrates an unremarkable unenhanced appearance. The adrenal glands are within normal limits. There are no obstructing renal stones. There is a right renal mid to lower pole 5 mm stone. There is a left renal upper pole 2 mm stone. There is a left renal lower pole 2 mm stone. Bilateral renal cysts are present. There is no hydronephrosis. Normal visualized stomach. There is no bowel obstruction or inflammation. Colonic diverticulosis is present. The appendix is normal. The aorta is normal in caliber. There is no abdominal or pelvic free air, free fluid, fluid collection or lymphadenopathy. There are no destructive osseous lesions. CT/Abdomen/Pelvis without Cont IMPRESSION: No acute abdominal or pelvic pathology demonstrated on this noncontrast CT. Bilateral nonobstructing stones. Colonic diverticulosis without evidence of inflammation. Electronically Signed: Blanco Neal, at 20:27 EDT Tel , Service support ,
[2019-04-19] MEDS: Ketorolac 30 MG/ML Syringe IV (19:51)
[2019-04-19] MEDS: 0.9% Normal Saline 1,000 ML 999 ML IV (19:52)
--- NOTE | 2019-04-19 22:07 | ED.DEP ---
ED Disposition - Plan for ED Patient: Instructions: BRONCHITIS, No Antibiotic (Adult) Prescriptions: Benzonatate [Tessalon Perle] 200 mg PO TID PRN PRN #20 capsule PRN Reason: Cough Referrals: Bernardo Agustin MD [Primary Care Provider] -
== END 2019-04-19 22:33 | disposition home or self-care (01) ==
LOC: ED 18:27
PROVIDERS: Emergency Provider Emergency Medicine; Family Provider Family Medicine; PCP Family Medicine
DX: J40 Bronchitis, not specified as acute or chronic (principal); N20.0 Calculus of kidney; K57.30 Diverticulosis of large intestine without perforation or abscess without bleeding; J45.909 Unspecified asthma, uncomplicated; I10 Essential (primary) hypertension; M19.90 Unspecified osteoarthritis, unspecified site; M48.00 Spinal stenosis, site unspecified; Z79.82 Long term (current) use of aspirin; Z79.899 Other long term (current) drug therapy; F17.200 Nicotine dependence, unspecified, uncomplicated
CPT/HCPCS: 36415; 71046; 74176; 80048; 81001; 84484; 85025; 93005; 94640; 96361; 96374; 99283; J7030; A4216

== ENCOUNTER 2019-04-25 09:06 | Emergency (ER) | payer SELFPAY ==
[2019-04-19 17:30] VITALS: BMI 25.8
[2019-04-25 09:07] VITALS: BP 151/93; PULSE 71; RESP 17; TEMP 36.9; O2SAT 98; BMI 25.8
--- NOTE | 2019-04-25 09:14 | ED.VIS.GEN ---
History of Present Illness Chief Complaint: Cold Sx Informant: Patient Onset: Days Context: Gradual Onset Timing: Continuous Current Severity: Moderate Maximum Severity: Moderate Narrative: The patient presents to the emergency department with cough and loss of voice. Patient does have a history of COPD and continues to smoke. He was seen here just about a week ago and diagnosed with viral bronchitis. He states that he was on the prednisone was actually improving. Since the prednisone was stopped, he felt like his symptoms have come back. He is continued to have cough. He is felt that he is a low-grade fever. He said increasing productive sputum. He denies any dyspnea or chest pain. Prior similar symptoms: Yes Recent Illness/Hospitalization: Yes Past Medical History - Allergies and Home Meds Allergies/Adverse Reactions: Allergies hydrocodone bitartrate [From Vicodin] Adverse Reaction (Verified 04/25/19 09:07) Nausea Primary Care Physician: Bernardo Agustin MD [Primary Care Provider] - Prior records reviewed: Yes Surgical History: cholecystectomy, - - Tib-fib surgery. Smoking Status: Current every day smoker - Family History Maternal Family History: Reports: Heart Disease Paternal Family History: Reports: Heart Disease Review of Systems General: Denies: Chills, Fever, Sweats Eyes: Denies: Visual changes - bilaterally, Diplopia ENT: Reports: Rhinorrhea, Sore throat Cardiovascular: Denies: Chest pain, Palpitations Respiratory: Reports: Cough. Denies: Dyspnea, Dyspnea on exertion Gastrointestinal: Denies: Abdominal pain, Nausea, Vomiting, Diarrhea, Melena, Hematochezia Genitourinary: Denies: Dysuria, Hematuria, Frequency Musculoskeletal: Denies: Back pain, Extremity Pain Skin: Denies: Rash, Wounds Neurological: Denies: Headache, Weakness, Numbness Physical Exam Vital Signs/Narrative: Vital Signs Temp Pulse Resp BP Pulse Ox 04/25/19 09:07 98.4 F 71 17 151/93 H 98 Inital Vital Signs reviewed: Yes General: Well nourished, Well developed, No Acute Distress Head: Normocephalic, Atraumatic Eyes: Perrl, EOMI ENT: Moist mucous membranes, No rhinorrhea Neck: Supple, Nontender Cardiovascular: Regular rate, Regular rhythm, No murmurs Respiratory: No distress, CTA bilaterally, Chest nontender Abdomen: Soft, Nontender, Nondistended, Normal bowel sounds Back: Nontender, Normal Inspection Extremities: Nontender, No edema Skin: Normal color, No rash Neurological: Alert, Oriented x3, Cranial nerves II-XII grossly intact, Normal Strength, Normal Sensation Psychological: Normal affect, Normal Mood Diagnostic/Tx/Re-eval - Medical Decision Making The patient does have a scant wheeze that clears with cough. He is not hypoxic or tachypneic. Given the prolonged course of his illness and underlying lung disease, I am going to cover him with doxycycline. He will be placed back on steroids. He was counseled concerning symptoms and reasons to return. He will be discharged home. Impression 1. Bronchitis ED Disposition - Plan for ED Patient: Instructions: BRONCHITIS, Antiobiotic Treatment (Adult) Prescriptions: Prednisone [Deltasone] 40 mg PO DAILY #10 tab Prescription Printed Doxycycline 100 mg PO BID #20 cap Prescription Printed Referrals: Bernardo Agustni MD [Primary Care Provider] -
[2019-04-25 09:25] VITALS: RESP 18
== END 2019-04-25 09:25 | disposition home or self-care (01) ==
LOC: ED 09:16
PROVIDERS: Emergency Provider Emergency Medicine; Family Provider Family Medicine; PCP Family Medicine
DX: J40 Bronchitis, not specified as acute or chronic (principal); Z82.49 Family history of ischemic heart disease and other diseases of the circulatory system; Z88.5 Allergy status to narcotic agent; Z90.49 Acquired absence of other specified parts of digestive tract
CPT/HCPCS: 99282

== ENCOUNTER 2019-06-06 06:42 | Emergency (ER) | payer MEDICAID, SELFPAY ==
[2019-06-06 06:45] VITALS: BP 149/89; PULSE 64; RESP 16; TEMP 36.9; O2SAT 96; BMI 29.6
--- NOTE | 2019-06-06 07:15 | ED.DCSUM_ITS ---
- ER Visit Summary Date of Service: 06/06/19 Chief Complaint: Near fall with back pain History of Present Illness: The patient is a 43 M history of spinal stenosis but no prior back surgery him so hypertension and asthma and rheumatoid arthritis. Patient states yesterday he was carrying a box and he tripped over another box had a near fall but never actually went down. He caught himself. Since that time he had back pain from his upper thoracic spine down to his lumbar spine. He denies any weakness. No numbness. No incontinence. No other injuries. Physical Examination: [Middle-aged male no acute distress vital signs are stable afebrile. Strong smell of tobacco. HEENT exam unremarkable atraumatic. Neck nontender. Lungs clear to auscultation. Heart regular rhythm no murmur. Abdomen is soft nontender. Normal bowel sounds no peritoneal signs. Extremities moves all 4. Neurovascular intact. Equal symmetrical ct scan special procedures technologist strength. Dorsi plantarflexion intact. No cauda equina. No saddle anesthesia. Normal range of motion. Back he has reproducible tenderness along his thoracic and lumbar spine. Also paraspinal soft tissues. Consistent with a myofascial strain. There is no deformity. No bruising. No signs of trauma. Neurologically is awake and alert with no focal motor deficits. Test Results: None Emergency Department Course and Treatment: History and exam are consistent with a back strain. Patient has used Flexeril in the past has worked well for him. Treatment Plan: Flexeril as needed. Motrin for pain. Follow-up as needed. Off work today. Disposition: Discharge Impression: Acute near fall with back strain This note was generated with [employer] dictation software. It may contain incorrect words, spelling, and punctuation that were not noted in review of the chart prior to signing ED Disposition - Plan for ED Patient: Referrals: Bernardo Agustin MD [Primary Care Provider] -
--- NOTE | 2019-06-06 07:19 | ED.DEP ---
ED Disposition - Plan for ED Patient: Disposition: Home or Assisted Living Instructions: Back Sprain/Strain Prescriptions: cycloBENZAPRine HCl [Flexeril] 10 mg PO TID #20 tab Prescription Printed Referrals: Bernardo Agustin MD [Primary Care Provider] - 1 Week if not improving Additional Instructions: Exposed muscle relaxant. Motrin for pain. Follow-up with your doctor if not improving.
[2019-06-06 07:22] VITALS: RESP 12
== END 2019-06-06 07:40 | disposition home or self-care (01) ==
PROVIDERS: Emergency Provider Emergency Medicine; Family Provider Family Medicine; PCP Family Medicine
DX: S39.012A Strain of muscle, fascia and tendon of lower back, initial encounter (principal); W01.0XXA Fall on same level from slipping, tripping and stumbling without subsequent striking against object, initial encounter; I10 Essential (primary) hypertension; J45.909 Unspecified asthma, uncomplicated; Z72.0 Tobacco use; Z90.49 Acquired absence of other specified parts of digestive tract; M06.9 Rheumatoid arthritis, unspecified
CPT/HCPCS: 99282

== ENCOUNTER 2019-09-16 08:52 | Emergency (ER) | payer MEDICAID, SELFPAY ==
[2019-09-16 08:53] VITALS: BP 160/85; PULSE 71; RESP 16; TEMP 36.6; BMI 32.5
--- NOTE | 2019-09-16 09:09 | RAD_ITS ---
STUDY: X-RAY - LEFT FOOT CLINICAL: Male, 43 years old. KICKED BOARD INJURING LEFT FOOT THIS MORNING. 3RD-5TH TOE PAIN. TECHNIQUE: 3 view(s) of the foot. COMPARISON: None. FINDINGS: There is an enthesophyte involving the posterior superior calcaneus at the site of insertion of the Achilles tendon. Normal visualized subtalar, talonavicular, calcaneocuboid, tarsal and tarsometatarsal articulations. Normal metatarsi. Normal metatarsophalangeal joint of the great toe. Normal tibial and fibular sesamoid bones. Normal interphalangeal joint of the great toe. Normal phalanges of the great toe. Normal second through fifth metatarsophalangeal joints. Normal interphalangeal joints and phalanges of the lesser toes. The soft tissue structures are unremarkable. RAD/Foot min 3 Views IMPRESSION: Spur formation at the insertion of the Achilles tendon. Electronically Signed: Manohar Kasper, at 9:43 EDT , Service support ,
--- NOTE | 2019-09-16 09:29 | ED.DCSUM_ITS ---
History of Present Illness Chief Complaint: Lower Extremity Injury Informant: Patient Onset: Today Context: Sudden Onset Timing: Continuous Current Severity: Moderate Maximum Severity: Moderate Narrative: The patient is an otherwise healthy 43-year-old male that presents to the emergency department with left foot injury. Patient states he was walking barefoot in his house. He states he stepped over his cat, lost his balance, and kicked a piece of wood on a door frame. He denies other injury. He is otherwise been in his normal state of health. He has been able to bear weight. Prior similar symptoms: No Recent Illness/Hospitalization: No Past Medical History - Allergies and Home Meds Allergies/Adverse Reactions: Allergies hydrocodone bitartrate [From Vicodin] Adverse Reaction (Verified 09/16/19 08:54) Nausea SURGICAL TAPE Adverse Reaction (Uncoded 09/16/19 08:55) Rash Primary Care Physician: Bernardo Agustin MD [Primary Care Provider] - Prior records reviewed: Yes Past Medical History: - - COPD Surgical History: cholecystectomy, - - Tib-fib surgery. Smoking Status: Current every day smoker - Family History Maternal Family History: Reports: Heart Disease Paternal Family History: Reports: Heart Disease Review of Systems General: Denies: Chills, Fever, Sweats Eyes: Denies: Visual changes - bilaterally, Diplopia ENT: Denies: Rhinorrhea, Sore throat Cardiovascular: Denies: Chest pain, Palpitations Respiratory: Denies: Dyspnea, Cough, Dyspnea on exertion Gastrointestinal: Denies: Abdominal pain, Nausea, Vomiting, Diarrhea, Melena, Hematochezia Genitourinary: Denies: Dysuria, Hematuria, Frequency Musculoskeletal: Denies: Back pain, Extremity Pain Skin: Denies: Rash, Wounds Neurological: Denies: Headache, Weakness, Numbness Physical Exam Vital Signs/Narrative: Vital Signs Temp Pulse Resp BP 09/16/19 08:53 97.8 F 71 16 160/85 H Inital Vital Signs reviewed: Yes General: Well nourished, Well developed, No Acute Distress Head: Normocephalic, Atraumatic Eyes: Perrl, EOMI ENT: Moist mucous membranes, No rhinorrhea Neck: Supple, Nontender Cardiovascular: Regular rate, Regular rhythm, No murmurs Respiratory: No distress, CTA bilaterally, Chest nontender Abdomen: Soft, Nontender, Nondistended, Normal bowel sounds Back: Nontender, Normal Inspection Extremities: No edema, Tenderness - Tender over the second through fourth toes of the left foot. Normal pulses. Sensation preserved. No laceration. Skin: Normal color, No rash Neurological: Alert, Oriented x3, Cranial nerves II-XII grossly intact, Normal Strength, Normal Sensation Psychological: Normal affect, Normal Mood Diagnostic/Tx/Re-eval - Medical Decision Making Clinical Impression(s) from Imaging Studies Foot X-Ray 09/16/19 09:09 IMPRESSION: Spur formation at the insertion of the Achilles tendon. Electronically Signed: Manohar Almaguermelissa, at 9:43 EDT , Service support , The patient presents with foot injury after kicking hardwood. There is no evidence of' subungual hematoma, laceration, or other significant injury. His pulses are normal. Plain films were obtained which show no evidence of acute fracture. My suspicion is that his symptoms are likely secondary to foot contusion. The patient will be placed on postoperative shoe and continue anti- inflammatories. He will be discharged home. Impression 1. Left foot contusion ED Disposition - Plan for ED Patient: Instructions: CONTUSION, Foot Referrals: Bernardo Agustin MD [Primary Care Provider] -
[2019-09-16 09:56] VITALS: BP 138/73; PULSE 62; RESP 18
== END 2019-09-16 09:58 | disposition home or self-care (01) ==
LOC: ED 09:26
PROVIDERS: Emergency Provider Emergency Medicine; PCP Family Medicine
DX: S90.32XA Contusion of left foot, initial encounter (principal); W01.0XXA Fall on same level from slipping, tripping and stumbling without subsequent striking against object, initial encounter; Y93.9 Activity, unspecified; Y92.009 Unspecified place in unspecified non-institutional (private) residence as the place of occurrence of the external cause; Y99.9 Unspecified external cause status; F17.200 Nicotine dependence, unspecified, uncomplicated; J44.9 Chronic obstructive pulmonary disease, unspecified; Z82.49 Family history of ischemic heart disease and other diseases of the circulatory system; Z90.49 Acquired absence of other specified parts of digestive tract; Z88.5 Allergy status to narcotic agent
CPT/HCPCS: 73630; 99283

== ENCOUNTER 2020-02-11 07:16 | Emergency (ER) | payer MEDICAID, SELFPAY ==
[2020-02-11 07:18] VITALS: BP 144/78; PULSE 73; RESP 16; TEMP 36.5; O2SAT 96; BMI 31.2
--- NOTE | 2020-02-11 07:32 | CT_ITS ---
STUDY: CT PELVIS WITHOUT CONTRAST REASON FOR EXAM: Male, 44 years old. History of midline hernia superior to the symphysis pubis RADIATION DOSAGE (If Supplied By Facility): CTDIvol = ( 28.21 ) mGy, DLP = ( 1127.34 ) mGycm TECHNIQUE: Transaxial imaging of the pelvis was performed with oral contrast, and without intravenous administration of contrast material. Individualized dose optimization techniques were used for this CT. COMPARISON: 04/19/2019 FINDINGS: The urinary bladder is suboptimally distended. Normal visualized small intestine. There are multiple colonic diverticula of the sigmoid colon consistent with chronic diverticulosis. The sigmoid colon is suboptimally distended. There is no pelvic fluid. There is no pelvic mass lesion or lymphadenopathy. Normal visualized pelvic arteries. Mild diastases of the anterior rectus muscles above and below the level of the umbilicus. No evidence of ventral or inguinal hernias. No demonstrated acute osseous changes. CT/Pelvis without IV Contrast IMPRESSION: No evidence of hernia. No demonstrated acute process. Electronically Signed: Dc Doss MD at 8:45 EDT Tel , Service support ,
--- NOTE | 2020-02-11 07:34 | ED.DCSUM_ITS ---
History of Present Illness Chief Complaint: Abd Pain Informant: Patient Onset: Weeks Context: Sudden Onset Timing: Intermittent Quality: Pain Location: Midline superior pubic symphysis Current Severity: Mild Maximum Severity: Severe Worsened by: Nothing specific Relieved by: Nothing Associated Symptoms: Nausea and diarrhea Narrative: She is a middle-age male who spoke with his primary care physician yesterday. They were concerned he may have a strangulated hernia. He was not examined. He went to outside facility. He states he was never seen because of the weight. He presents because of pain that he localizes superior pubic symphysis that is midline. He does report 1-2 loose stools a day. He does report blood and mucus in the stool. He has had nausea without vomiting. He denies fever or chills. He does have a smoker's cough. He denies dysuria, frequency, urgency or hematuria. Prior similar symptoms: No Recent Illness/Hospitalization: No - Past Medical History (1) GERD (gastroesophageal reflux disease) Status: Chronic (2) HTN (hypertension) Status: Chronic (3) Hiatal hernia Status: Chronic (4) Mitral valve prolapse Status: Chronic (5) Obesity Status: Chronic (6) Osteoarthritis Status: Chronic (7) Spinal stenosis Status: Chronic (8) Tobacco abuse Status: Chronic Past Medical History - Allergies and Home Meds Allergies/Adverse Reactions: Allergies hydrocodone bitartrate [From Vicodin] Adverse Reaction (Verified 02/11/20 07:17) Nausea SURGICAL TAPE Adverse Reaction (Uncoded 02/11/20 07:17) Rash Primary Care Physician: Bernardo Agustin MD [Primary Care Provider] - Prior records reviewed: Yes Surgical History: cholecystectomy, - - Tib-fib surgery. Lives: Alone Smoking Status: Current every day smoker Alcohol: Rare Drugs: None - Family History Maternal Family History: Reports: Heart Disease Paternal Family History: Reports: Heart Disease Review of Systems General: Denies: Chills, Fever, Malaise, Subjective, Sweats ENT: Denies: Rhinorrhea, Sore throat Cardiovascular: Denies: Chest pain, Palpitations Respiratory: Reports: Cough. Denies: Dyspnea, Sputum, Dyspnea on exertion Gastrointestinal: Reports: Abdominal pain, Nausea, Diarrhea, Hematochezia. Denies: Vomiting, Constipation, Melena Genitourinary: Denies: Dysuria, Hematuria, Frequency Musculoskeletal: Denies: Myalgias, Arthralgias, Neck pain, Back pain, Swelling, Extremity Pain, -, - Skin: Denies: Rash, Wounds Neurological: Denies: Weakness, Parasthesia, Numbness Endocrine: Denies: Polyuria, Polydipsia Hematologic: Denies: Easy bruising, Easy bleeding Allergy: Denies: Uticaria Physical Exam Vital Signs/Narrative: Vital Signs Temp Pulse Resp BP Pulse Ox 02/11/20 07:18 97.7 F L 73 16 144/78 H 96 Inital Vital Signs reviewed: Yes General: Well nourished, Well developed, Obese, Unkempt Head: Normocephalic, Atraumatic Eyes: Perrl, EOMI. Negative for: Pale conjunctiva, Scleral icterus ENT: Moist mucous membranes, No rhinorrhea Neck: Supple, Nontender, No lymphadenopathy Cardiovascular: Regular rate, Regular rhythm, No murmurs, Normal S1, Normal S2 Respiratory: No distress, CTA bilaterally Abdomen: Soft, Nondistended, No masses, Tender, Guarding, Hypoactive bowel sounds, Pulsatile mass, Ventral hernia, Hernia reducible. Negative for: Nontender, Normal bowel sounds, Rebound tenderness, Hyperactive bowel sounds, Hepatomegaly, Splenomegaly, Mass, Inguinal hernia, Umbilical hernia Rectal: Deferred Back: Nontender Extremities: Nontender, No edema Skin: Normal color, No rash Neurological: Alert, Oriented x3, Cranial nerves II-XII grossly intact, Normal Strength, Normal Sensation Psychological: Normal affect, Normal Mood Diagnostic/Tx/Re-eval Impressions Pelvis CT 02/11/20 07:32 IMPRESSION: No evidence of hernia. No demonstrated acute process. Electronically Signed: Dc Doss MD at 8:45 EDT Tel , Service support , 02/11/20 07:32 CT Pel [Pelvis without IV Contrast] [CT] Stat Laboratory Results 02/11/20 02/11/20 07:57 07:57 WBC 6.2 RBC 4.41 L Hgb 13.5 Hct 40.3 MCV 91.4 MCH 30.6 MCHC 33.5 RDW Std Deviation 45.0 H RDW Coeff of Maame 13.3 Plt Count 190 MPV 10.1 Immature Gran % (Auto) 0.200 Neut % (Auto) 55.1 Lymph % (Auto) 35.3 [place] % (Auto) 6.3 Eos % (Auto) 2.9 Baso % (Auto) 0.2 Absolute Neuts (auto) 3.4 Absolute Lymphs (auto) 2.19 Nucleated RBC % 0 Sodium 139 Potassium 3.8 Chloride 107 Carbon Dioxide 24.0 Anion Gap 8 BUN 15 Creatinine 1.01 Estim Creat Clear Calc 94.36 Est GFR (MDRD) Af Amer 102 Est GFR (MDRD) Non-Af 84 BUN/Creatinine Ratio 14.9 Glucose 102 Calcium 8.7 - Medical Decision Making Patient does have a bulge noted consistent with a midline infraumbilical hernia. He has not had vomiting. He is still passing gas reports diarrhea. This would not be consistent with an obstruction. Based on exam it is my believe patient does not have a strangulated or incarcerated hernia. CT of the pelvis was obtained to confirm that bulge appreciated is a ventral hernia versus other pathology. In light of his age and medical problems CBC and BMP were obtained as well to assess white count, hemoglobin, renal function and electrolytes. History of diarrhea for 1 week need to evaluate for hypokalemia. CAT scan reveals no evidence of hernia. The cause of patient's midline suprapubic pain is unknown. Patient was made aware of this. His work-up is unremarkable. He will be discharged home with appropriate home-going instructions and to follow-up with his primary care physician. ED Disposition - Plan for ED Patient: Disposition: Home or Assisted Living Diagnosis: Intermittent lower abdominal pain, Diarrhea Instructions: ED Unknown Causes of Abdominal Pain Male Prescriptions: Dicyclomine HCl [Bentyl] 20 mg PO ACHS #20 cap Transmission Status: Pending to [address] Referrals: Bernardo Agustin MD [Primary Care Provider] - 3-5 Days if not improving
[2020-02-11 08:03] LABS: Absolute Lymphocyte Count 2.19 X10^3/uL (0.83-4.51); Absolute Neutrophil Count 3.4 X10^3/uL (2.0-7.7); Basophil# 0.01 X10^3/uL; Basophil% 0.2 % (0-1); Eosinophil# 0.18 X10^3/uL; Eosinophils% 2.9 % (0-5); Hematocrit 40.3 % (40-54); Hemoglobin 13.5 g/dL (13.0-16.5); Lymphocyte # 2.19 X10^3/ul (4.0); Lymphocyte % 35.3 % (19-41); Mean Corp Hgb Conc 33.5 g/dL (32-36); Mean Corpuscular Hgb 30.6 pg (27.0-32.0); Mean Corpuscular Volume 91.4 fL (80-94); Mean Platelet Vol. 10.1 fl (6.2-12.0); Monocyte# 0.39 X10^3/uL; Monocyte% 6.3 % (0-10); NRBC Flagged by Analyzer 0 % (0-5); Neutrophil # 3.43 X10^3/uL (2.7-7.7); Neutrophil % 55.1 % (47-70); Platelet Count 190 K/mm3 (150-450); RBC Distribution Width CV 13.3 % (11.6-14.6); Red Blood Count 4.41 M/mm3 (4.6-6.2); White Blood Count 6.2 K/mm3 (4.4-11.0)
[2020-02-11 08:22] LABS: Anion Gap 8 (5-15); BUN 15 mg/dL (7-18); BUN/Creat Ratio 14.9 RATIO (10-20); Calcium,Total 8.7 mg/dL (8.5-10.1); Chloride 107 mmol/L (98-107); Creatinine, Serum 1.01 mg/dL (0.70-1.30); EST Glomerular Filtration Rate 84 mL/min (>60); Est Glom Filt Rate - Afr Amer 102 mL/min (>60); Estimated Creatinine Clearance 94.36 ml/min; Glucose 102 mg/dL (74-106); Potassium 3.8 mmol/L (3.5-5.1); Sodium Level 139 mmol/L (136-145)
== END 2020-02-11 09:10 | disposition home or self-care (01) ==
PROVIDERS: Emergency Provider Emergency Medicine; PCP Family Medicine
DX: R10.30 Lower abdominal pain, unspecified (principal); R19.7 Diarrhea, unspecified; R11.0 Nausea; E66.9 Obesity, unspecified; K21.9 Gastro-esophageal reflux disease without esophagitis; I10 Essential (primary) hypertension; K44.9 Diaphragmatic hernia without obstruction or gangrene; I34.1 Nonrheumatic mitral (valve) prolapse; M19.90 Unspecified osteoarthritis, unspecified site; F17.200 Nicotine dependence, unspecified, uncomplicated; Z82.49 Family history of ischemic heart disease and other diseases of the circulatory system; Z88.5 Allergy status to narcotic agent; Z90.49 Acquired absence of other specified parts of digestive tract
CPT/HCPCS: 72192; 80048; 85025; 99285; A4216

== ENCOUNTER 2020-03-14 12:53 | Emergency (ER) | payer MEDICAID, SELFPAY ==
[2020-03-14 12:54] VITALS: BP 135/76; PULSE 81; RESP 16; TEMP 36.2; O2SAT 98; BMI 30.8
--- NOTE | 2020-03-14 13:18 | RAD_ITS ---
STUDY: X-RAY - LEFT HAND REASON FOR EXAM: Male, 44 years old. PLASTIC PIECE OF CHAINSAW KICKED BACK AND HIT THE OUTSIDE OF LEFT HAND. C/O PAIN AND SWELLING 2-4 DISTAL MC TECHNIQUE: 3 view(s) of the hand. COMPARISON: None. FINDINGS: Normal radiocarpal articulation. Normal distal radioulnar joint. Normal visualized carpal bones. Normal carpal articulations Normal carpometacarpal articulation of the thumb. Normal second through fifth carpometacarpal joints. Normal metacarpi. Normal metacarpophalangeal joint of the thumb. Normal interphalangeal joint of the thumb. Normal proximal and distal phalanges of the thumb. Normal metacarpophalangeal joints of the second through fifth fingers. Normal proximal and distal interphalangeal joints of the second through fifth fingers. Normal phalanges of the second through fifth fingers. The soft tissue structures are unremarkable. No radiopaque foreign body is seen. RAD/Hand Min 3 Views IMPRESSION: Normal x-ray examination of the hand. Electronically Signed: Manohar Kasper, at 13:32 EDT , Service support ,
--- NOTE | 2020-03-14 14:21 | ED.DCSUM_ITS ---
- ER Visit Summary Date of Service: 03/14/20 Chief Complaint: Left hand injury History of Present Illness: The patient is a 44 M who presents with left hand injury that occurred today. Patient states he was using a chainsaw and the plastic handle of the rope starter came back and hit him on his left hand. Patient is right-hand dominant. Patient states the pain is sharp and throbbing. Patient states pain is worse with movement. Patient does admit to some numbness and tingling into his fingers. Patient denies any other injuries. Patient denies any lacerations. Physical Examination: Vital signs are stable. Patient is afebrile. Patient is in no acute distress. Musculoskeletal exam reveals some mild tenderness and edema over the dorsal aspect of the left hand over the third and fourth metacarpal areas. There is no bony crepitance or step-off. There is no deformity noted. Range of motion was limited in all motions of the left hand secondary to pain. There is no laxity appreciated. Radial pulses are equal bilaterally. Capillary refill was less than 2 seconds in all digits. There are no motor or sensory deficits noted. Test Results: X-rays of the left hand were obtained. There is no acute fracture. These were interpreted by the radiologist and myself. Emergency Department Course and Treatment: Patient was given an ice pack. Patient was given a dose of ibuprofen here. Patient was instructed to ice and elevate the left hand. Patient was instructed to take [id number] Tylenol or ibuprofen as needed for pain. Patient was instructed to follow-up with his primary care physician in 5 to 7 days. Patient understood and was agreeable with the plan. All questions were answered. Disposition: Discharge home Impression: Left hand contusion This note was generated with [employer] dictation software. It may contain incorrect words, spelling, and punctuation that were not noted in review of the chart prior to signing ED Disposition - Plan for ED Patient: Disposition: Home or Assisted Living Diagnosis: Contusion of left hand, initial encounter Instructions: ED HAND CONTUSION Referrals: Bernardo Agustin MD [Primary Care Provider] - 5-7 Days
[2020-03-14] MEDS: Ibuprofen 400 MG Tablet 800 MG PO (14:37)
[2020-03-14 14:38] VITALS: BP 128/79; PULSE 72; RESP 15; O2SAT 99
== END 2020-03-14 14:38 | disposition home or self-care (01) ==
PROVIDERS: Emergency Provider Emergency Medicine; PCP Family Medicine
DX: S60.222A Contusion of left hand, initial encounter (principal); W20.8XXA Other cause of strike by thrown, projected or falling object, initial encounter; Y93.9 Activity, unspecified; Y92.89 Other specified places as the place of occurrence of the external cause; Y99.9 Unspecified external cause status; K21.9 Gastro-esophageal reflux disease without esophagitis; F17.210 Nicotine dependence, cigarettes, uncomplicated
CPT/HCPCS: 73130; 99283

== ENCOUNTER 2021-08-21 17:05 | Emergency (ER) | payer MEDICAID, SELFPAY ==
[2021-08-21 17:06] VITALS: BP 155/95; PULSE 84; RESP 19; TEMP 36.7; O2SAT 97; BMI 32.9
--- NOTE | 2021-08-21 17:13 | EKG12_ITS ---
Test Reason : CHEST PAIN Blood Pressure : / mmHG Vent. Rate : 075 BPM Atrial Rate : 075 BPM P-R Int : 166 ms QRS Dur : 098 ms QT Int : 372 ms P-R-T Axes : 020 -22 002 degrees QTc Int : 415 ms Normal sinus rhythm Poor R wave progression Confirmed by NEHA REGAN, ARMOND ([id number]), editor farm journal TONI MEEK ([id number]) on 08/23/2021 9:57:05 AM Referred By: DC Confirmed By:ARMOND SOLOMON MD
[2021-08-21 17:35] LABS: Absolute Lymphocyte Count 2.42 X10^3/uL (0.83-4.51); Absolute Neutrophil Count 6.6 X10^3/uL (2.0-7.7); Basophil# 0.02 X10^3/uL; Basophil% 0.2 % (0-1); Eosinophil# 0.22 X10^3/uL; Eosinophils% 2.3 % (0-5); Hematocrit 42.2 % (40-54); Hemoglobin 14.9 g/dL (13.0-16.5); Lymphocyte # 2.42 X10^3/ul (0.83-4.51); Lymphocyte % 24.8 % (19-41); Mean Corp Hgb Conc 35.3 g/dL (32-36); Mean Corpuscular Volume 90.8 fL (80-94); Monocyte# 0.49 X10^3/uL; NRBC Flagged by Analyzer 0 % (0-5); Neutrophil # 6.56 X10^3/uL (2.7-7.7); Neutrophil % 67.4 % (47-70); Platelet Count 215 K/mm3 (150-450); RBC Distribution Width CV 13.1 % (11.6-14.6); RBC Distribution Width SD 43.1 fl (35.1-43.9); Red Blood Count 4.65 M/mm3 (4.6-6.2); White Blood Count 9.7 K/mm3 (4.4-11.0)
--- NOTE | 2021-08-21 17:38 | RAD_ITS ---
STUDY: X-RAY CHEST REASON FOR EXAM: Male, 45 years old. CHEST PAIN chest pain TECHNIQUE: XR Chest 1 View COMPARISON: 04/19/19 FINDINGS: There is no demonstrated pleural abnormality. Normal size heart. Normal mediastinum and antoine. Normal visualized pulmonary arteries. Normal visualized aortic arch and descending thoracic aorta. Normal visualized thoracic spine. Normal visualized ribs, clavicles, and shoulders. There is no demonstrated abnormality of the visualized soft tissue structures of the upper abdomen. RAD/Chest 1 View (Portable) IMPRESSION: There are no acute findings. Electronically Signed: Vel Quiñonez MD at 17:58 EST ,
[2021-08-21] MEDS: Aspirin 81 MG TAB.CHEW 324 MG PO (17:42)
[2021-08-21 17:46] VITALS: BP 132/85; PULSE 77; RESP 12; O2SAT 98
[2021-08-21 18:09] LABS: Anion Gap 5 (5-15); BUN 12 mg/dL (7-18); Calcium,Total 9.3 mg/dL (8.5-10.1); Chloride 108 mmol/L (98-107); EST Glomerular Filtration Rate 85 mL/min (>60); Est Glom Filt Rate - Afr Amer 103 mL/min (>60); Estimated Creatinine Clearance 91.32 ml/min; Glucose 94 mg/dL (74-106); Potassium 3.9 mmol/L (3.5-5.1); Sodium Level 139 mmol/L (136-145); Troponin-I HS 13 pg/mL (3.0-78.0)
[2021-08-21] MEDS: Ketorolac 30 MG/ML Syringe IV (18:09)
[2021-08-21 19:08] VITALS: BP 142/99; PULSE 70; RESP 14; O2SAT 99
--- NOTE | 2021-08-21 19:55 | EDS_ITS ---
HPI History of Present Illness Chief Complaint: Chest Pain Informant: patient Onset/Context/Timing Onset: Today Current Severity: Moderate Associated Symptoms Associated Symptoms: Headache, shortness of breath, cough Narrative Narrative: Patient presents with right-sided chest pain that radiates into his right arm. It started [place] He was threatened to be tased. He had some coughing and shortness of breath but it seemed to improve. He never had this before. He also reports a headache. Prior similar symptoms: No Recent Illness/Hospitalization: No PFSH PFS Medical History GERD (gastroesophageal reflux disease) Migraines Rheumatoid aortitis Spinal stenosis Home Medications albuterol sulfate [ProAir HFA] 2 puff INHALATION Q4H PRN PRN 12/09/18 [History Last Taken Unknown] trazodone 150 mg PO DAILY 03/14/20 [History Last Taken Unknown] Allergy/AdvReac Type Severity Reaction Status Date / Time hydrocodone bitartrate AdvReac Nausea Verified 08/21/21 17:09 [From Vicodin] SURGICAL TAPE AdvReac Rash Uncoded 08/21/21 17:09 Social History Smoking Status: Current every day smoker tobacco type: cigarettes and smokeless tobacco ROS ROS ED Constitutional Constitutional ED: Denies fever(s) Eyes Eyes: Denies change in vision ENT ENT ED: Denies ear pain Cardiovascular Cardiovascular: Reports chest pain Respiratory/Chest Respiratory/Chest: Denies dyspnea Gastrointestinal Gastrointestinal: Denies abdominal pain Genitourinary Genitourinary ED: Denies dysuria Musculoskeletal Musculoskeletal: Denies myalgias Integumentary Denies rash Neurologic Neurologic: Denies headache(s) Psychiatric Psychiatric: Denies depression Endocrine Endocrinology: Denies polyuria Allergic/Immunologic Allergic/Immunologic ED: Denies urticaria EXAM Physical Exam Const Vital Signs: 08/21/21 17:06 08/21/21 17:12 08/21/21 17:13 Temperature 98.1 F Temperature Source Temporal Pulse Rate 84 Respiratory Rate 19 H Respiratory Effort Normal Non-Labored Blood Pressure 155/95 H Blood Pressure Mean 115 Pulse Ox 97 Oxygen Delivery Method Room Air Room Air 08/21/21 17:46 08/21/21 19:08 Temperature Temperature Source Pulse Rate 77 70 Respiratory Rate 12 14 Respiratory Effort Blood Pressure 132/85 H 142/99 H Blood Pressure Mean 100 113 Pulse Ox 98 99 Oxygen Delivery Method Room Air Room Air Positive well nourished and well developed General Appearance ED: well developed HEENT Negative for trauma Eyes EOMs intact bilaterally Neck supple Resp normal respiratory effort and clear to auscultation bilaterally Cardio regular rate and regular rhythm GI normal to inspection, nondistended, normoactive bowel sounds Back/Spine no CVA tenderness Extremity normal to inspection General Extremety ED: Negative for edema or tenderness General Extremity: Negative for edema Neuro oriented x3 Sensorium / Orientation: alert Psych mental status grossly normal MDM MDM MDM Narrative Medical decision making narrative: I reviewed the EKG and it showed sinus rhythm at a rate of 75 with no sign of ischemia or infarction pattern. Chest x-ray was reviewed by the radiologist and myself and showed no acute abnormalities. Patient's labs were all fairly unremarkable. He received aspirin and then had a persistent headache and received Toradol. On reevaluation, he is doing well. He has nothing to suggest PE or aortic dissection. Low risk for ACS. This sounds like a situational issue with possibly some panic. I do not believe he needs a further inpatient evaluation for this. He can follow-up with his PCP. Return for any new or worsening issues. Impression #1 atypical chest pain Lab Data Attestation: I reviewed the patient's lab results. Labs: Laboratory Results - last 24 hr 08/21/21 08/21/21 17:25 17:25 WBC 9.7 RBC 4.65 Hgb 14.9 Hct 42.2 MCV 90.8 MCH 32.0 MCHC 35.3 RDW Std Deviation 43.1 RDW Coeff of Maame 13.1 Plt Count 215 MPV 10.0 Immature Gran % (Auto) 0.300 Neut % (Auto) 67.4 Lymph % (Auto) 24.8 [place] % (Auto) 5.0 Eos % (Auto) 2.3 Baso % (Auto) 0.2 Absolute Neuts (auto) 6.6 Absolute Lymphs (auto) 2.42 Nucleated RBC % 0 Sodium 139 Potassium 3.9 Chloride 108 H Carbon Dioxide 26.0 Anion Gap 5 BUN 12 Creatinine 1.00 Estim Creat Clear Calc 91.32 Est GFR (MDRD) Af Amer 103 Est GFR (MDRD) Non-Af 85 BUN/Creatinine Ratio 12.0 Glucose 94 Calcium 9.3 Troponin I High Sens 13 Radiography Diagnostic Testing: Clinical Impression(s) from Imaging Studies Chest X-Ray 08/21/21 17:38 IMPRESSION: There are no acute findings. Electronically Signed: Vel Quiñonez MD at 17:58 EST Reading Location ID and State: [facility] / [place] , Service support , Discharge Plan Triage Chief Complaint: Chest Pain ED Provider: Luis Carranza Dx/Rx/DC Orders Prescriptions: No Action albuterol sulfate [ProAir HFA] 1 PUFF inhaler 2 puff inhalation Q4H PRN PRN (Reason: Sob &/Or Wheezing) RF: 0 trazodone 150 MG tablet 150 mg PO DAILY RF: 0 Primary Care Provider: Bernardo Agustin
[2021-08-21 20:05] VITALS: BP 119/86; PULSE 69; RESP 15; O2SAT 98
== END 2021-08-21 23:59 | disposition home or self-care (01) ==
PROVIDERS: Emergency Provider Emergency Medicine; PCP Family Medicine; Visit Provider Emergency Medicine
DX: R07.89 Other chest pain (principal); M06.9 Rheumatoid arthritis, unspecified; R06.02 Shortness of breath; R51.9 Headache, unspecified; F17.210 Nicotine dependence, cigarettes, uncomplicated; K21.9 Gastro-esophageal reflux disease without esophagitis
CPT/HCPCS: 71045; 80048; 84484; 85025; 93005; 99283; A4216

== ENCOUNTER 2023-05-01 13:16 | Emergency (ER) | payer MEDICAID, SELFPAY ==
[2023-05-01 13:17] VITALS: BP 169/109; PULSE 83; RESP 16; TEMP 36.6; O2SAT 100; BMI 35.4
--- NOTE | 2023-05-01 13:51 | CT_ITS ---
STUDY: CT ABDOMEN AND PELVIS WITH CONTRAST REASON FOR EXAM: Male, 47 years old. Abdominal pain and bloating. RADIATION DOSAGE (If Supplied By Facility): CTDIvol = ( 18.27 ) mGy, DLP = ( 1275.95 ) mGycm TECHNIQUE: Transaxial images were obtained from the dome of the diaphragm to the symphysis pubis without oral contrast. IV 100mL Isovue-300 was administered. Sagittal and coronal images were reconstructed. Individualized dose optimization techniques were used for this CT. COMPARISON: Comparison is made with prior study April 19, 2019. FINDINGS: Minimal degree of dependent bibasilar atelectasis. Mild coronary artery calcification. There is decreased attenuation of the liver consistent with steatosis. The patient is status post cholecystectomy. Normal spleen. Normal pancreas. Normal bilateral adrenal glands. Stable 1 cm cyst in the upper mid aspect of the right kidney. 3 mm nonobstructive calculus in the lower pole calyx of the right kidney. Small left renal cysts. Punctate nonobstructive calculus in the lower pole calyx of the left kidney. Normal visualized stomach. Normal small intestine. There are multiple colonic diverticula consistent with diverticulosis. The appendix is visualized and appears normal. Normal abdominal aorta. Normal inferior vena cava. Normal retroperitoneum. Normal urinary bladder. There is a small umbilical hernia containing fat. Normal osseous structures. CT/Abdomen/Pelvis W IV Cont ONLY IMPRESSION: Sigmoid diverticulosis. Stable bilateral renal cysts. Nonobstructive calculi in both kidneys. Fatty infiltration of the liver. Electronically Signed: Manohar Kasper MD at 14:37 EDT ,
--- NOTE | 2023-05-01 14:05 | EDS_ITS ---
HPI HPI - GI History of Present Illness Chief Complaint: Abd Pain Narrative Narrative: 47-year-old male past medical history of chronic back problems, hypertension, presents with bilateral lower abdominal pain that he sustained from bending over since yesterday evening. He denies any fevers or chills, he was nauseated earlier but has had no vomiting. No diarrhea, no dysuria or hematuria. He has pain that is worse with movement and transfer. No previous past abdominal surgeries. He states that he presents for evaluation of his both right lower quadrant and left lower quadrant pain in the area under his pannus where his muscles attach to his pelvis. [facility] Medical History GERD (gastroesophageal reflux disease) Migraines Rheumatoid aortitis Spinal stenosis Home Medications albuterol sulfate 90 mcg/actuation aerosol inhaler (ProAir HFA) 2 puff inhalation Q4H PRN PRN Sob &/Or Wheezing 12/09/18 [History Last Taken Unknown] trazodone 150 mg tablet 150 mg PO DAILY 03/14/20 [History Last Taken Unknown] Allergy/AdvReac Type Severity Reaction Status Date / Time adhesive tape [surgical tape] AdvReac Rash Verified 05/01/23 13:19 hydrocodone bitartrate AdvReac Nausea Verified 05/01/23 13:19 [From Vicodin] Social History Smoking Status: Current every day smoker tobacco type: cigarettes and smokeless tobacco ROS ROS ED ROS Narrative Constitutional: No fever, no chills. HEENT: No sore throat. No neck pain. No loss of vision. No rhinorrhea. Cardiovascular: No chest pain. No palpitations. No pedal edema. Respiratory: No cough, no shortness of breath. Abdominal: Bilateral lower quadrant, right greater than left abdominal pain. Positive nausea. No vomiting. Genitourinary: No dysuria. No hematuria. Musculoskeletal: No myalgias. No arthralgias. Neurologic: No headaches. No dizziness. No lightheadedness. Skin: No rash. No change in color. Psychiatric: No depression. No anxiety. EXAM Physical Exam Narrative Exam Narrative: Afebrile. Vital signs noted. HEENT: Normocephalic. Atraumatic. PERRL, EOMI. Neck soft and supple. No point tenderness or step off. Cardiovascular: Regular rate and rhythm. No murmurs, rubs, or gallops appreciated. Respiratory: No tachypnea. Lungs clear to auscultation bilaterally. Gastrointestinal: Abdomen soft, minimal tenderness to palpation where abdominal rectus muscles insert on pelvis, with normoactive bowel sounds. No rebound or guarding. Positive pain with half sit up. Neurological: Awake. Alert. Nonfocal, nonlateralizing. Skin: No rash. Normal color. No pallor. Musculoskeletal: No pedal edema. Full range of motion extremities. Const Vital Signs: 05/01/23 13:17 Temperature 97.8 F Temperature Source Temporal Pulse Rate 83 Respiratory Rate 16 Blood Pressure 169/109 H Blood Pressure Mean 129 Pulse Ox 100 Oxygen Delivery Method Room Air MDM MDM MDM Narrative Medical decision making narrative: Concern is for abdominal muscular strain versus internal process. I have low suspicion for appendicitis based on his clinical examination. Comprehensive work-up was pursued. I will obtain basic lab work including CBC and CMP along with a urinalysis to help rule out any infection. He will be given Toradol for analgesia and CT imaging obtained and reviewed. I reviewed his laboratory work from today and he has a normal white count of 7.7, hemoglobin 13.5, hematocrit 41.5, platelet count normal at 221. Electrolyte panel is grossly unremarkable with a normal BUN of 13, creatinine also normal at 1.05, sodium 140, potassium 3.8, chloride 107. LFTs are normal at an AST of 37 and ALT of 28. Urine is negative for infection with negative leukocytes and negative nitrites, 0 WBCs on exam. I do not feel antibiotics are indicated. I reviewed the CT report of the abdomen and pelvis with IV contrast. There are stable renal cysts and sigmoid diverticulosis without evidence of diverticulitis. He was given Toradol for his pain. I do feel he has more of an abdominal wall strain given his negative work-up here and negative CT imaging. Treat will be symptomatic with [id number] medications as I do not feel narcotics are indicated. I do not feel he requires observation at this time. He will follow-up with his primary care provider in approximately 1 week. I feel he can be discharged safely home with follow-up. Return instructions were reviewed. Disposition is discharged home in stable condition. History & Record Review Discussion w/independent historian: Patient Additional record(s) reviewed:: Prior ED visit and Prior labs Lab Data Attestation: I reviewed the patient's lab results. Labs: Laboratory Results - last 24 hr 05/01/23 05/01/23 14:05 14:10 WBC 7.7 RBC 4.49 L Hgb 13.5 Hct 41.5 MCV 92.4 MCH 30.1 MCHC 32.5 RDW Std Deviation 45.7 H RDW Coeff of Maame 13.4 Plt Count 221 MPV 9.5 Immature Gran % (Auto) 0.300 Neut % (Auto) 49.0 Lymph % (Auto) 40.1 [place] % (Auto) 7.7 Eos % (Auto) 2.6 Baso % (Auto) 0.3 Absolute Neuts (auto) 3.8 Absolute Lymphs (auto) 3.07 Nucleated RBC % 0 Sodium 140 Potassium 3.8 Chloride 107 Carbon Dioxide 28.0 Anion Gap 5 BUN 13 Creatinine 1.05 Estim Creat Clear Calc 85.10 Est GFR (MDRD) Af Amer 96 Est GFR (MDRD) Non-Af 80 BUN/Creatinine Ratio 12.4 Glucose 92 Calcium 9.0 Total Bilirubin 0.40 AST 37 ALT 28 Alkaline Phosphatase 72 Total Protein 7.0 Albumin 3.6 Globulin 3.4 Albumin/Globulin Ratio 1.1 Urine Color Yellow Urine Clarity Clear Urine pH 6.5 Ur Specific [place] 1.015 Urine Protein Negative Urine Glucose (UA) Normal Urine Ketones Negative Urine Occult Blood 25 H Urine Nitrite Negative Urine Bilirubin Negative Urine Urobilinogen Normal Ur Leukocyte Esterase Negative Urine RBC 0 SEEN Urine WBC 0 SEEN Ur Squamous Epith Cells 0 SEEN Urine Bacteria 0 SEEN Urine Mucus 0 SEEN Radiography Diagnostic Testing: Clinical Impression(s) from Imaging Studies Abdomen/Pelvis CT 05/01/23 13:51 IMPRESSION: Sigmoid diverticulosis. Stable bilateral renal cysts. Nonobstructive calculi in both kidneys. Fatty infiltration of the liver. Electronically Signed: Manohar Kasper MD at 14:37 EDT , Discharge Plan Triage Chief Complaint: Abd Pain ED Provider: Cheo Reynoso Dx/Rx/DC Orders Clinical Impression: Abdominal pain, Strain of abdominal wall Instructions: ED Muscle Strain, Abdomen, ED Abdominal Pain Unkn Cause Male... Prescriptions: No Action albuterol sulfate [ProAir HFA] 1 PUFF inhaler 2 puff inhalation Q4H PRN PRN (Reason: Sob &/Or Wheezing) trazodone 150 MG tablet 150 mg PO DAILY Primary Care Provider: Care Physician,No Primary Referrals: Bernardo Agustin MD [Non-Staff] - 1 Week if not improving Disposition Disposition: Home, Self Care
[2023-05-01] MEDS: 0.9% Normal Saline (1000mL) 1,000 ML 999 ML IV (14:06)
[2023-05-01 14:15] LABS: Bacteria 0 SEEN /hpf (None Seen); Mucous, Urine 0 SEEN /hpf (<or=2+); Red Blood Cells-Urine 0 SEEN /hpf (0-5); Squamous Epithelial Cells - UA 0 SEEN /hpf (0-5); White Blood Cells 0 SEEN /hpf (0-5)
[2023-05-01 14:18] LABS: Absolute Lymphocyte Count 3.07 X10^3/uL (0.83-4.51); Absolute Neutrophil Count 3.8 X10^3/uL (2.0-7.7); Basophil# 0.02 X10^3/uL; Basophil% 0.3 % (0-1); Eosinophils% 2.6 % (0-5); Hematocrit 41.5 % (40-54); Hemoglobin 13.5 g/dL (13.0-16.5); Lymphocyte # 3.07 X10^3/ul (0.83-4.51); Lymphocyte % 40.1 % (19-41); Mean Corp Hgb Conc 32.5 g/dL (32-36); Mean Corpuscular Hgb 30.1 pg (27.0-32.0); Mean Corpuscular Volume 92.4 fL (80-94); Mean Platelet Vol. 9.5 fl (6.2-12.0); Monocyte# 0.59 X10^3/uL; Monocyte% 7.7 % (0-10); NRBC Flagged by Analyzer 0 % (0-5); Neutrophil # 3.75 X10^3/uL (2.7-7.7); Platelet Count 221 K/mm3 (150-450); RBC Distribution Width CV 13.4 % (11.6-14.6); RBC Distribution Width SD 45.7 fl (35.1-43.9); Red Blood Count 4.49 M/mm3 (4.6-6.2); White Blood Count 7.7 K/mm3 (4.4-11.0)
[2023-05-01 14:18] LABS: Color, Urine Yellow (Yellow); Glucose, Dipstick Normal (Normal); Ketone-Dipstick Negative (Negative); Leukocyte Esterase-Dipstick Negative /ul (Negative); Nitrite-Dipstick Negative (Negative); Occult Blood-Urine 25 /ul (Negative); Protein-Dipstick Negative (Negative); Specific Gravity, Urine 1.015 (1.002-1.030); Urine Bilirubin Dipstick Negative (Negative); Urine Clarity Clear (Clear); Urine Urobilinogen Normal (Normal); Urine pH 6.5 (5.0 - 8.0)
[2023-05-01 14:34] LABS: ALB/GLOB Ratio 1.1 RATIO (0.9-2.4); AST(SGOT) 37 U/L (15-37); Alanine Aminotransfer ALT/SGPT 28 U/L (16-61); Albumin, Serum 3.6 g/dL (3.2-5.0); Alkaline Phosphatase 72 U/L (45-117); Anion Gap 5 (5-15); BUN 13 mg/dL (7-18); BUN/Creat Ratio 12.4 RATIO (10-20); Chloride 107 mmol/L (98-107); Creatinine, Serum 1.05 mg/dL (0.70-1.30); EST Glomerular Filtration Rate 80 mL/min (>60); Est Glom Filt Rate - Afr Amer 96 mL/min (>60); Globulin 3.4 g/dL (2.2-4.2); Glucose 92 mg/dL (74-106); Potassium 3.8 mmol/L (3.5-5.1); Sodium Level 140 mmol/L (136-145)
[2023-05-01] MEDS: Ketorolac 30 MG/ML Syringe IV (14:41)
[2023-05-01 16:02] VITALS: BP 138/78; PULSE 80; RESP 16; O2SAT 98
== END 2023-05-01 16:05 | disposition home or self-care (01) ==
PROVIDERS: Emergency Provider Emergency Medicine; Visit Provider Emergency Medicine
DX: S39.011A Strain of muscle, fascia and tendon of abdomen, initial encounter (principal); K57.30 Diverticulosis of large intestine without perforation or abscess without bleeding; I10 Essential (primary) hypertension; N28.1 Cyst of kidney, acquired; F17.210 Nicotine dependence, cigarettes, uncomplicated; X50.1XXA Overexertion from prolonged static or awkward postures, initial encounter; K21.9 Gastro-esophageal reflux disease without esophagitis
CPT/HCPCS: 74177; 80053; 81001; 85025; 99283; J7030; Q9967; A4216

== ENCOUNTER 2025-01-04 05:45 | Day surgery (SDC) | payer MEDICAID, SELFPAY ==
--- NOTE | 2024-12-26 08:01 | EKG12_ITS ---
Test Reason : PREOP Blood Pressure : */* mmHG Vent. Rate : 52 BPM Atrial Rate : 52 BPM P-R Int : 154 ms QRS Dur : 90 ms QT Int : 394 ms P-R-T Axes : 32 -13 57 degrees QTcB Int : 366 ms Sinus bradycardia Otherwise normal ECG Confirmed by MARCUS REGAN, FRANSICO ([id number]), legal editor MARTHA CHOPRA ([id number]) on 12/27/2024 6:37:24 AM Referred By: Martin Carvalho Confirmed By: FRANSICO VELAZQUEZ MD
[2024-12-26 08:41] LABS: Hematocrit 46.5 % (40-54); Hemoglobin 15.6 g/dL (13.0-16.5); Mean Corp Hgb Conc 33.5 g/dL (32-36); Mean Corpuscular Volume 92.4 fL (80-94); Mean Platelet Vol. 10.4 fl (6.2-12.0); Platelet Count 224 K/mm3 (150-450); RBC Distribution Width CV 13.4 % (11.6-14.6); RBC Distribution Width SD 45.9 fl (35.1-43.9); Red Blood Count 5.03 M/mm3 (4.6-6.2); White Blood Count 12.7 K/mm3 (4.4-11.0)
[2024-12-26 09:42] LABS: Anion Gap 10 (5-15); BUN 13 mg/dL (4-19); BUN/Creat Ratio 12.6 RATIO (10-20); Calcium,Total 9.7 mg/dL (7.6-11.0); Carbon Dioxide 22.0 mmol/L (21.0-32.0); Chloride 105 mmol/L (98-108); Glucose 108 mg/dL (70-99); Potassium 4.9 mmol/L (3.3-5.1)
--- NOTE | 2024-12-27 15:48 | PAT.ANE_ITS ---
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 When Was Last Pacemaker Check QUESTION #4 FULL TEXT: You/Your Family Experience fever (hyperthermia) with Anesthesia Last Oral Intake Last Oral intake: Last Oral Intake NPO since Meds taken in AM with sips of water? Meds patient instructed to take am of surgery PONV PONV - metallurgical engineering teacher: PONV - metallurgical engineering teacher Female No 12/21/24 09:36 HX of Motion Sickness No 12/21/24 09:36 HX of N/V After Surgery No 12/21/24 09:36 Non-Smoker No 12/21/24 09:36 Duration of Surgery greater Yes 12/21/24 09:36 than 60 minutes Number of Risk Factors 1 12/21/24 09:36 PONV Score Low Risk 12/21/24 09:36 Height & Weight Height & Weight: Anesthesia: Height & Weight Height 5 ft 9 in 10/10/24 09:39 Respiratory Assessment Respiratory Assessment - metallurgical engineering teacher: Respiratory Tract Infection Hx - metallurgical engineering teacher Hx Respiratory Tract Infection No 12/21/24 09:36 STOP Sleep Apnea STOP Sleep Apnea - metallurgical engineering teacher: STOP Sleep Apnea - metallurgical engineering teacher Hx Hypertension No 12/21/24 09:36 Hx Sleep Apnea No: NO OFFICIAL TESTING 12/21/24 09:36 BUT SAYS HE HAS IT CPAP No 12/09/18 16:38 BIPAP Do you snore loudly (louder Yes 12/21/24 09:36 than talking or can be heard Do you often feel tired/ Yes 12/21/24 09:36 fatigued/ sleepy during daytime? Has anyone observed you stop Yes 12/21/24 09:36 breathing during sleep? STOP Results Positive 12/21/24 09:36 QUESTION #5 FULL TEXT : Do you snore loudly (louder than talking or can be heard through closed doors)? 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 Specify any problems Hx of Preganancy in last 3 N/A 12/21/24 09:36 Months Nurse Filling Out Transfusion [facility] 12/21/24 09:36 & Questions: Date: 12/21/24 12/21/24 09:36 Time: 09:50 12/21/24 09:36 Patient unable to answer at this time (ie. 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: /Reproductive Hx- metallurgical engineering teacher Hx Now Gestational Age (in weeks): EDC: Hx Hx Para Hx Section SAB PFSH Medical History (Updated 12/21/24 @ 09:49 by Radha Solano) Wears glasses Marijuana use Ambulates with cane Arthritis History of renal disease High cholesterol Back pain History of hiatal hernia Heartburn Gastric reflux Smoker Sleep apnea COPD (chronic obstructive pulmonary disease) History of edema History of stress test History of echocardiogram Hypertension Kidney stone Gallbladder abscess Impingement of left shoulder Tendinosis of left rotator cuff Left rotator cuff tear Left shoulder pain Rheumatoid aortitis Spinal stenosis GERD (gastroesophageal reflux disease) Migraines Home Medications ?Medication ?Instructions ?Recorded ?Last Taken ?Type trazodone 150 mg tablet 150 mg PO DAILY 03/14/20 Unk nown History aspirin 81 mg chewable tablet 1 tab PO QDAY 11/18/24 U nknown History atorvastatin 40 mg tablet 40 mg PO QDAY 11/18/24 Unkno wn History hydrochlorothiazide 25 mg tablet 25 mg PO QDAY 5 Unknown History hyoscyamine sulfate 0.125 mg 0.125 mg sublingual 4X/DA Y 11/18/24 Unknown History sublingual tablet magnesium oxide 400 mg (241.3 mg 400 mg PO QDAY Unknown History magnesium) tablet meloxicam 15 mg tablet 15 mg PO QDAY 11/18/24 Unkno wn History omeprazole 40 mg capsule,delayed 40 mg PO QDAY 5 Unknown History release sucralfate 100 mg/mL oral 5 ml PO ACHS 11/18/24 Unknow n History suspension tramadol 50 mg tablet 50 mg PO Q12H PRN pain 11/18 Unknown History albuterol sulfate 2.5 mg/3 mL 2.5 mg inhalation TID Unknown History (0.083 %) solution for nebulization gabapentin 300 mg capsule 300 mg PO TID 12/21/24 Unkno wn History tiotropium bromide 1.25 2 puff inhalation DAILY 11/28 11/20 Unknown History mcg/actuation mist for inhalation (Spiriva Respimat) Allergy/AdvReac Type Severity Reaction Status Date / Time adhesive tape (surgical tape) AdvReac Rash Verified 12/21/24 09:29 hydrocodone bitartrate (From AdvReac Nausea Verified 12/21/24 09:29 Vicodin) Surgical History (Updated 12/21/24 @ 09:38 by Radha Solano) History of colonoscopy History of esophagogastroduodenoscopy (EGD) History of lithotripsy History of surgery on lower extremity H/O eye surgery History of back surgery Social History Smoking Status: Current every day smoker tobacco type: cigarettes and smokeless tobacco Audit: Pertinent Findings Pertinent Findings EKG Perinent findings: EKG 12/26/2024: Vent. Rate : 52 BPM Atrial Rate : 52 BPM P-R Int : 154 ms QRS Dur : 90 ms QT Int : 394 ms P-R-T Axes : 32 -13 57 degrees QTcB Int : 366 ms Sinus bradycardia Stress test pertinent findings: Patient has a cardiac stress test that was done on 12/09/2018 however I cannot review the interpretation or conclusion of the test. Echo (EF%) pertinent findings: Echo from 09/08/2024: LVEF is 55 to 60%. No regional wall motion abnormalities. Mild mitral valve prolapse with trivial regurgitation. Right ventricular size is mildly increased. Echo 12/10/18: LVEF is normal with an estimated LVEF of 60%. Normal RV size normal LA no mitral valve stenosis or insufficiency. No aortic stenosis or aortic valve insufficiency. Recommendation Anesthesia Recommendation Anesthesia recommendation: F/U recommended (Please obtain cardiac stress test interpretation and/or conclusion from stress test dated on 12/09/2018. If you look at the file the interpretation section and conclusions section are empty.) Follow up Details Additional Information Recommendation: Yes
--- NOTE | 2024-12-28 19:10 | PAT.ANESEVAL ---
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 When Was Last Pacemaker Check QUESTION #4 FULL TEXT: You/Your Family Experience fever (hyperthermia) with Anesthesia Last Oral Intake Last Oral intake: Last Oral Intake NPO since Meds taken in AM with sips of water? Meds patient instructed to take am of surgery PONV PONV - lamp shade joiner: PONV - lamp shade joiner Female No 12/21/24 09:36 HX of Motion Sickness No 12/21/24 09:36 HX of N/V After Surgery No 12/21/24 09:36 Non-Smoker No 12/21/24 09:36 Duration of Surgery greater Yes 12/21/24 09:36 than 60 minutes Number of Risk Factors 1 12/21/24 09:36 PONV Score Low Risk 12/21/24 09:36 Height & Weight Height & Weight: Anesthesia: Height & Weight Height 5 ft 9 in 10/10/24 09:39 Respiratory Assessment Respiratory Assessment - lamp shade joiner: Respiratory Tract Infection Hx - lamp shade joiner Hx Respiratory Tract Infection No 12/21/24 09:36 STOP Sleep Apnea STOP Sleep Apnea - lamp shade joiner: STOP Sleep Apnea - lamp shade joiner Hx Hypertension No 12/21/24 09:36 Hx Sleep Apnea No: NO OFFICIAL TESTING 12/21/24 09:36 BUT SAYS HE HAS IT CPAP No 12/09/18 16:38 BIPAP Do you snore loudly (louder Yes 12/21/24 09:36 than talking or can be heard Do you often feel tired/ Yes 12/21/24 09:36 fatigued/ sleepy during daytime? Has anyone observed you stop Yes 12/21/24 09:36 breathing during sleep? STOP Results Positive 12/21/24 09:36 QUESTION #5 FULL TEXT : Do you snore loudly (louder than talking or can be heard through closed doors)? 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 Specify any problems Hx of Preganancy in last 3 N/A 12/21/24 09:36 Months Nurse Filling Out Transfusion [facility] 12/21/24 09:36 & Questions: Date: 12/21/24 12/21/24 09:36 Time: 09:50 12/21/24 09:36 Patient unable to answer at this time (ie. confused, unrespo /Reproduction History /Reproductive History - lamp shade joiner: /Reproductive Hx- lamp shade joiner Hx Now Gestational Age (in weeks): EDC: Hx Hx Para Hx [facility] Medical History (Updated 12/21/24 @ 09:49 by Radha Solano) Wears glasses Marijuana use Ambulates with cane Arthritis History of renal disease High cholesterol Back pain History of hiatal hernia Heartburn Gastric reflux Smoker Sleep apnea COPD (chronic obstructive pulmonary disease) History of edema History of stress test History of echocardiogram Hypertension Kidney stone Gallbladder abscess Impingement of left shoulder Tendinosis of left rotator cuff Left rotator cuff tear Left shoulder pain Rheumatoid aortitis Spinal stenosis GERD (gastroesophageal reflux disease) Migraines Home Medications ?Medication ?Instructions ?Recorded ?Last Taken ?Type trazodone 150 mg tablet 150 mg PO DAILY 03/14/20 Unknown History aspirin 81 mg chewable tablet 1 tab PO QDAY 11/18/24 Unknown History atorvastatin 40 mg tablet 40 mg PO QDAY 11/18/24 Unknown History hydrochlorothiazide 25 mg tablet 25 mg PO QDAY 11/18/24 Unknown History hyoscyamine sulfate 0.125 mg 0.125 mg sublingual 4X/DAY 11/18/24 Unknown History sublingual tablet magnesium oxide 400 mg (241.3 mg 400 mg PO QDAY 11/18/24 Unknown History magnesium) tablet meloxicam 15 mg tablet 15 mg PO QDAY 11/18/24 Unknown History omeprazole 40 mg capsule,delayed 40 mg PO QDAY 11/18/24 Unknown History release sucralfate 100 mg/mL oral 5 ml PO ACHS 11/18/24 Unknown History suspension tramadol 50 mg tablet 50 mg PO Q12H PRN pain 11/18/24 Unknown History albuterol sulfate 2.5 mg/3 mL 2.5 mg inhalation TID 12/21/24 Unknown History (0.083 %) solution for nebulization gabapentin 300 mg capsule 300 mg PO TID 12/21/24 Unknown History tiotropium bromide 1.25 2 puff inhalation DAILY 12/21/24 Unknown History mcg/actuation mist for inhalation (Spiriva Respimat) Allergy/AdvReac Type Severity Reaction Status Date / Time adhesive tape (surgical tape) AdvReac Rash Verified 12/21/24 09:29 hydrocodone bitartrate (From AdvReac Nausea Verified 12/21/24 09:29 Vicodin) Surgical History (Updated 12/21/24 @ 09:38 by Radha Solano) History of colonoscopy History of esophagogastroduodenoscopy (EGD) History of lithotripsy History of surgery on lower extremity H/O eye surgery History of back surgery Social History Smoking Status: Current every day smoker tobacco type: cigarettes and smokeless tobacco Audit: Pertinent Findings HISTORY of Pertinent Findings History of Pertinent Findings: EKG Pertinent Findings EKG Perinent findings EKG 12/26/2024: 12/27/24 16:05 Vent. Rate : 52 BPM Atrial Rate : 52 BPM P-R Int : 154 ms QRS Dur : 90 ms QT Int : 394 ms P-R-T Axes : 32 -13 57 degrees QTcB Int : 366 ms Sinus bradycardia Stress Test Pertinent Findings Stress test pertinent findings Patient has a cardiac stress 12/27/24 18:06 test that was done on 2018 however I cannot review the interpretation or conclusion of the test. Echo Pertinent Findings Echo (EF%) pertinent findings Echo from 09/08/2024: 12/27/24 18:06 LVEF is 55 to 60%. No regional wall motion abnormalities. Mild mitral valve prolapse with trivial regurgitation. Right ventricular size is mildly increased. Echo 12/10/18: LVEF is normal with an estimated LVEF of 60%. Normal RV size normal LA no mitral valve stenosis or insufficiency. No aortic stenosis or aortic valve insufficiency. Pertinent Findings Stress test pertinent findings: December 10, 2018. No evidence of significant ischemia or infarction. EF of 68%. Recommendation Anesthesia Recommendation Anesthesia recommendation: OPTIMIZED for anesthesia
[2025-01-04] VITALS (10 sets, daily range): BP systolic 120–153; BP diastolic 82–108; PULSE 61–82; RESP 16–20; TEMP 36.1–36.6; O2SAT 92–97; BMI 34.2
[2025-01-04] MEDS: Lactated Ringers 1,000 ML 15 ML IV (06:30)
--- NOTE | 2025-01-04 06:43 | PCM.HP.STD ---
HPI - General HPI Narrative REJI VICTOR, is a 49 M who presents left shoulder arthroscopy, subacromial decompression, rotator cuff repair. no change to h and p. ok to proceed. left shoulder marked. rab, post op instructions, narcotic counselling. MR#: [id number] Acct: [id number] Name: REJI VICTOR Rep #: [id number] : 1975 Provider: Dr. Martin Carvalho MD Age/Sex: 49/M [place] [facility] [place] Status: Signed Intake Vital Signs 10/10/2508:39 Height 5 ft 9 in Weight: 246 lb 4 oz BMI 36.3 Intake Visit Reasons: LEFT SHOULDER Chief Complaint: Left shoulder Is patient in pain?: Yes (left shoulder) Pain scale (1-10): 7 Allergies adhesive tape (surgical tape) Adverse Reaction (Verified 11/18/24 08:06) Rashhydrocodone bitartrate (From Vicodin) Adverse Reaction (Verified 11/18/24 08:06) Nausea Medications ?Medication ?Instructions ?Recorded ?Confirmed ?Type albuterol sulfate 90 mcg/actuation 2 puff inhalation Q4H PRN PRN Sob 12/09/18 10/10/24 History aerosol inhaler (ProAir HFA) &/Or Wheezing trazodone 150 mg tablet 150 mg PO DAILY 03/14/20 10/10/24 History aspirin 81 mg chewable tablet 1 tab PO QDAY 11/18/24 11/18/24 History atorvastatin 40 mg tablet 40 mg PO QDAY 11/18/24 11/18/24 History hydrochlorothiazide 25 mg tablet 25 mg PO QDAY 11/18/24 11/18/24 History hyoscyamine sulfate 0.125 mg 0.125 mg sublingual 4X/DAY 11/18/24 11/18/24 History sublingual tablet magnesium oxide 400 mg (241.3 mg 400 mg PO QDAY 11/18/24 11/18/24 History magnesium) tablet meloxicam 15 mg tablet 15 mg PO QDAY 11/18/24 11/18/24 History omeprazole 40 mg capsule,delayed 40 mg PO QDAY 11/18/24 11/18/24 History release sucralfate 100 mg/mL oral ml PO 11/18/24 11/18/24 History suspension tramadol 50 mg tablet 50 mg PO Q12H PRN pain 11/18/24 11/18/24 History PFSH Medical History Kidney stone Gallbladder abscess Impingement of left shoulder Tendinosis of left rotator cuff Left rotator cuff tear Left shoulder pain Rheumatoid aortitis Spinal stenosis GERD (gastroesophageal reflux disease) Migraines Surgical History H/O eye surgery History of back surgery Social History Smoking Status: Current every day smoker tobacco type: cigarettes and smokeless tobacco HPI LEFT SHOULDER Details: This documentation accurately reflects the service provided and the decisions made by me, Dr. Martin Carvalho MD 11/18/24 08. Part of today?s visit was documented by [ ], acting as scribe. REJI VICTOR is a 49 year old M here today for follow-up left shoulder pain cortisone injection was ineffective. Ortho Exam General General: Yes no acute distress Neurologic: Yes alert and Yes oriented x3 Psychologic: Yes reasonable and appropriate Left Shoulder Skin/Wound: Yes CDI, No ecchymosis, No erythema and No swelling Testing: Yes Hawkin's, Yes Neer's, Yes Speed's, Yes TTP Biceps, No TTP AC Joint, Yes AROM-Forward Elevation 0-180, Yes AROM-External Rotation at side 0-60, Yes empty can, No Loving, No scapular winging and Yes belly press normal SHOULDER: normal motor and sens to axillary N, MRU and AIN/PIN. Hand warm well perfused normal radial pulse fe and er strength 5/5. Supplemental Info MRI from 09/26/2024 [facility] MRI shoulder left without contrast Radiologist impression 1. Small lesion in the proximal humerus has no aggressive features and is most compatible with a bone island 2. Supraspinatus tendinosis with low-grade bursal surface fraying/partial tearing. Associated mild subacromial subdeltoid bursitis 3. Mild subscapularis tendinosis 4. Findings and potential adhesive capsulitis. Clinical correlation is recommended I independently reviewed the imaging. Concur with radiologist report. Coding Level of Care Code Off vis,est,level 4 Diagnoses Tendinosis of left rotator cuff M67.814 Impingement of left shoulder M25.812 Left rotator cuff tear M75.102 Assessment and Plan Assessment and Plan (1) Tendinosis of left rotator cuff: Status: Acute Plan: 49-year-old man with a small bursal sided supraspinatus tendon tear and impingement syndrome with bursitis. Discussed the diagnosis prognosis different treatment options including surgery in the form of a left shoulder arthroscopy, subacromial decompression, rotator cuff repair. Patient has multiple medical comorbidities as well as smoking status that is a known risk factor for infection delayed or nonhealing of tendon repairs. I counseled the patient to quit or cut back. Gets many staph infections per the patient so we are both aware of the increased risks for him personally. Pros and cons risks and benefits were discussed with the patient including but not limited to infection, pain, stiffness, bleeding, damage to surrounding structures, neurovascular injury, recurrence or retear, failure or wear of hardware or fixation, instability, fracture, deep vein thrombosis and pulmonary embolism, anesthetic risks, , patient dissatisfaction, need for further surgery and other risks. Patient understood and wished to proceed with surgery, and signed the informed consent documentation. Patient counselled on non-operative and operative means of treating shoulder pain. Conservative options include but not limited to: 1. Rest and Activity Modification: Giving your shoulder time to heal by avoiding movements that cause pain can help. This may involve limiting overhead activities or heavy lifting. 2. Physical Therapy: A physical therapist can guide you through exercises that strengthen the muscles around the shoulder, improve flexibility, and reduce strain on the rotator cuff tendon. 3. Ice and Heat Therapy: Applying ice to the shoulder can help reduce swelling and pain, especially after activity. Heat can be helpful to relax tense muscles and improve blood flow before exercises. 4. Anti-Inflammatory Medications: [id number]-zat-[id number] medications like ibuprofen or naproxen can help reduce pain and inflammation in the tendon. 5. Corticosteroid Injections: If the pain is more severe, a steroid injection can reduce inflammation in the shoulder and provide relief for a longer period. 6. Platelet-Rich Plasma (PRP) Injection: This treatment involves using your own blood to promote healing in the tendon. The plasma is rich in growth factors that can encourage tissue repair. 7. TENS (Transcutaneous Electrical Nerve Stimulation): This therapy uses a small electrical current to help manage pain and promote healing by stimulating nerves. (2) Impingement of left shoulder: Status: Acute (3) Left rotator cuff tear: Status: Acute [facility] Medical History (Updated 12/21/24 @ 09:49 by Radha Solano) Wears glasses Marijuana use Ambulates with cane Arthritis History of renal disease High cholesterol Back pain History of hiatal hernia Heartburn Gastric reflux Smoker Sleep apnea COPD (chronic obstructive pulmonary disease) History of edema History of stress test History of echocardiogram Hypertension Kidney stone Gallbladder abscess Impingement of left shoulder Tendinosis of left rotator cuff Left rotator cuff tear Left shoulder pain Rheumatoid aortitis Spinal stenosis GERD (gastroesophageal reflux disease) Migraines Home Medications ?Medication ?Instructions ?Recorded ?Last Taken ?Type trazodone 150 mg tablet 150 mg PO DAILY 03/14/20 01/03/25 History aspirin 81 mg chewable tablet 1 tab PO QDAY 11/18/24 12/26/24 History atorvastatin 40 mg tablet 40 mg PO QDAY 11/18/24 01/03/25 History hydrochlorothiazide 25 mg tablet 25 mg PO QDAY 11/18/24 01/03/25 History hyoscyamine sulfate 0.125 mg 0.125 mg sublingual 4X/DAY 11/18/24 01/03/25 History sublingual tablet magnesium oxide 400 mg (241.3 mg 400 mg PO QDAY 11/18/24 01/02/25 History magnesium) tablet meloxicam 15 mg tablet 15 mg PO QDAY 11/18/24 01/03/25 History omeprazole 40 mg capsule,delayed 40 mg PO QDAY 11/18/24 01/03/25 History release sucralfate 100 mg/mL oral 5 ml PO ACHS 11/18/24 01/03/25 History suspension tramadol 50 mg tablet 50 mg PO Q12H PRN pain 11/18/24 01/02/25 History albuterol sulfate 2.5 mg/3 mL 2.5 mg inhalation TID 12/21/24 01/03/25 History (0.083 %) solution for nebulization gabapentin 300 mg capsule 300 mg PO TID 12/21/24 01/03/25 History tiotropium bromide 1.25 2 puff inhalation DAILY 12/21/24 01/03/25 History mcg/actuation mist for inhalation (Spiriva Respimat) Allergy/AdvReac Type Severity Reaction Status Date / Time adhesive tape (surgical tape) AdvReac Rash Verified 01/04/25 06:20 hydrocodone bitartrate (From AdvReac Nausea Verified 01/04/25 06:20 Vicodin) Surgical History (Updated 12/21/24 @ 09:38 by Radha Solano) History of colonoscopy History of esophagogastroduodenoscopy (EGD) History of lithotripsy History of surgery on lower extremity H/O eye surgery History of back surgery Social History Smoking Status: Current every day smoker tobacco type: cigarettes and smokeless tobacco Vital Signs Vital Signs Vital Signs: 01/04/25 06:22 01/04/25 06:22 Temperature 97.5 F L Temperature Source Temporal Pulse Rate 61 Respiratory Rate 20 H Respiratory Pattern Normal Blood Pressure 120/82 H Blood Pressure Mean 94 Blood Pressure Source Monitor Blood Pressure Position Semi-Fowlers Blood Pressure Location Right Arm Pulse Ox 95 Oxygen Delivery Method Room Air Weight Weight: 231 lb 7.766 oz Body Mass Index (BMI) 34.2 Results Lab / Micro Data 12/26/24 08:15 12/26/24 08:15
--- NOTE | 2025-01-04 06:44 | PCM.PRE.AN2 ---
ASA Classification* ASA Classification ASA Classification: 3 Assessment & Plan Anesthesia* Anesthesia Assessment Anesthesia Assessment: Discussed sedation and/or anesthesia options, risks, benefits, and alternatives with patient/parents/legal guardian/POA. Questions invited. The patient/parents/legal guardian/POA seems to understand and agrees to proceed with anesthesia plan. Reviewed the physical assessment, medical history, allergy history and patient home medications list prior to surgery/procedure/anesthetic and documented any changes. Performed airway and anesthesia risk assessments. Anesthesia Type Anesthesia Type: General and Block (Patient consented for upper extremity block) History Source History Obtained from:: Patient and Chart Anesthesia Focused Assessment* Temperature: 97.5 F Pulse Rate: 61 Blood Pressure: 120/82 Respiratory Rate: 20 Pulse Ox: 95 Oxygen Delivery Method: Room Air Airway Assessment Mouth opens: >3 cm Mallampati Score: I Teeth Condition: Dentures (Full upper and lower dentures that were out of the mouth) Neck Range of motion (ROM): Full ROM Labs Anesthesia Preop lab: CBC WBC 12.7 K/mm3 (4.4-11.0) H 12/26/24 08:15 12/26/24 RBC 5.03 M/mm3 (4.6-6.2) 12/26/24 08:15 12/26/24 Hgb 15.6 g/dL (13.0-16.5) 12/26/24 08:15 12/26/24 Hct 46.5 % (40-54) 12/26/24 08:15 12/26/24 Plt Count 224 K/mm3 (150-450) 12/26/24 08:15 12/26/24 CHEMISTRY Potassium 4.9 mmol/L (3.3-5.1) 12/26/24 08:15 12/26/24 Sodium 137 mmol/L (133-145) 12/26/24 08:15 12/26/24 BUN 13 mg/dL (4-19) 12/26/24 08:15 12/26/24 Creatinine 1.03 mg/dL (0.70-1.20) 12/26/24 08:15 12/26/24 Glucose 108 mg/dL (70-99) H 12/26/24 08:15 12/26/24 COAG PT 13.3 SECONDS (11.7-14.9) 12/10/18 06:30 12/10/18 Pre-Assessment Diagnosis/Proposed Procedure Planned Operative Procedure(s): (L) Left shoulder Arthroscopy, subacromial decompression, rotator cuff repair Anesthesia History 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 When Was Last Pacemaker Check QUESTION #4 FULL TEXT: You/Your Family Experience fever (hyperthermia) with Anesthesia Last Oral Intake Last Oral intake: Last Oral Intake NPO since 20:30 01/04/25 06:22 Meds taken in AM with sips of No 01/04/25 06:22 water? 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 Female No 12/21/24 09:36 HX of Motion Sickness No 12/21/24 09:36 HX of N/V After Surgery No 12/21/24 09:36 Non-Smoker No 12/21/24 09:36 Duration of Surgery greater Yes 12/21/24 09:36 than 60 minutes Number of Risk Factors 1 12/21/24 09:36 PONV Score Low Risk 12/21/24 09:36 Height & Weight Height & Weight: Anesthesia: Height & Weight Height 5 ft 9 in 01/04/25 06:22 Weight: 105 kg 01/04/25 06:22 Body Mass Index (BMI) 34.2 01/04/25 06:22 Respiratory Assessment Respiratory Assessment - supervisor border department: Respiratory Tract Infection Hx - supervisor border department Hx Respiratory Tract Infection No 12/21/24 09:36 STOP Sleep Apnea STOP Sleep Apnea - supervisor border department: STOP Sleep Apnea - supervisor border department Hx Hypertension No 12/21/24 09:36 Hx Sleep Apnea No: NO OFFICIAL TESTING 12/21/24 09:36 BUT SAYS HE HAS IT CPAP No 12/09/18 16:38 BIPAP Do you snore loudly (louder Yes 12/21/24 09:36 than talking or can be heard Do you often feel tired/ Yes 12/21/24 09:36 fatigued/ sleepy during daytime? Has anyone observed you stop Yes 12/21/24 09:36 breathing during sleep? STOP Results Positive 12/21/24 09:36 QUESTION #5 FULL TEXT : Do you snore loudly (louder than talking or can be heard through closed doors)? 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 Specify any problems Hx of Preganancy in last 3 N/A 12/21/24 09:36 Months Nurse Filling Out Transfusion [facility] 12/21/24 09:36 & Questions: Date: 12/21/24 12/21/24 09:36 Time: 09:50 12/21/24 09:36 Patient unable to answer at this time (ie. 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: /Reproductive Hx- supervisor border department Hx Now Gestational Age (in weeks): EDC: Hx Hx Para Hx Section SAB Active Medications Active Medications: Current Medications Generic Name Dose Route Start Last Admin Trade Name Freq PRN Reason Stop Dose Admin Cefazolin Sodium 2 gm/ Sodium 110 mls @ 200 mls/hr 01/04/25 08:00 Chloride IV 01/04/25 08:32 INTRAOP ONE Lactated Ringer's 1,000 mls @ 15 mls/hr 01/04/25 06:00 01/04/25 06:30 IV 15 mls/hr .Q48H KJ Administration PFSH Medical History Wears glasses Marijuana use Ambulates with cane Arthritis History of renal disease High cholesterol Back pain History of hiatal hernia Heartburn Gastric reflux Smoker Sleep apnea COPD (chronic obstructive pulmonary disease) History of edema History of stress test History of echocardiogram Hypertension Kidney stone Gallbladder abscess Impingement of left shoulder Tendinosis of left rotator cuff Left rotator cuff tear Left shoulder pain Rheumatoid aortitis Spinal stenosis GERD (gastroesophageal reflux disease) Migraines Home Medications ?Medication ?Instructions ?Recorded ?Last Taken ?Type trazodone 150 mg tablet 150 mg PO DAILY 03/14/20 01/03/25 History aspirin 81 mg chewable tablet 1 tab PO QDAY 11/18/24 12/26/24 History atorvastatin 40 mg tablet 40 mg PO QDAY 11/18/24 01/03/25 History hydrochlorothiazide 25 mg tablet 25 mg PO QDAY 11/18/24 01/03/25 History hyoscyamine sulfate 0.125 mg 0.125 mg sublingual 4X/DAY 11/18/24 01/03/25 History sublingual tablet magnesium oxide 400 mg (241.3 mg 400 mg PO QDAY 11/18/24 01/02/25 History magnesium) tablet meloxicam 15 mg tablet 15 mg PO QDAY 11/18/24 01/03/25 History omeprazole 40 mg capsule,delayed 40 mg PO QDAY 11/18/24 01/03/25 History release sucralfate 100 mg/mL oral 5 ml PO ACHS 11/18/24 01/03/25 History suspension tramadol 50 mg tablet 50 mg PO Q12H PRN pain 11/18/24 01/02/25 History albuterol sulfate 2.5 mg/3 mL 2.5 mg inhalation TID 12/21/24 01/03/25 History (0.083 %) solution for nebulization gabapentin 300 mg capsule 300 mg PO TID 12/21/24 01/03/25 History tiotropium bromide 1.25 2 puff inhalation DAILY 12/21/24 01/03/25 History mcg/actuation mist for inhalation (Spiriva Respimat) Allergy/AdvReac Type Severity Reaction Status Date / Time adhesive tape (surgical tape) AdvReac Rash Verified 01/04/25 06:20 hydrocodone bitartrate (From AdvReac Nausea Verified 01/04/25 06:20 Vicodin) Surgical History History of colonoscopy History of esophagogastroduodenoscopy (EGD) History of lithotripsy History of surgery on lower extremity H/O eye surgery History of back surgery Social History Smoking Status: Current every day smoker tobacco type: cigarettes and smokeless tobacco Review of Systems (Anesthesia) ROS Narrative System reviewed and no additional complaints, except as documented. Physical Exam Resp Auscultation: wheezes expiratory wheezes (DuoNeb breathing treatment given in preop)
[2025-01-04] MEDS: Midazolam 2 MG/2 ML Syringe IV (08:10)
[2025-01-04] MEDS: Cefazolin 1 GM/5 ML Vial 2 GM IV (08:22)
[2025-01-04] MEDS: fentaNYL 250mcg vial 100 ML 100 MCG IV (08:23)
[2025-01-04] MEDS: Epinephrine (1 mg/ml) 1 MG/ML VIAL (09:00)
--- NOTE | 2025-01-04 09:23 | PCM.OPRPT ---
Problems Associated Problem List Diagnoses (1) Tendinosis of left rotator cuff: (2) Impingement of left shoulder: (3) Left rotator cuff tear: (4) Left shoulder pain: Procedures Musculoskeletal [id number]: Other Procedure See Report Operative Report (Standard) Operative Information Date of Procedure: 01/04/25 Pre-Operative Diagnosis: Left shoulder impingement syndrome and rotator cuff tear Post-Operative Diagnosis: Same Surgery/Procedure Performed: Left shoulder arthroscopy, subacromial decompression, rotator cuff repair missile mechanic: No Type of Anesthesia: Block,Regional and General RN Documented Start/Stop Times: Operation Date: 01/04/25 08:00 Case Time Into Pre-Op 01/04/25 05:58 Anesthesia Start 01/04/25 08:16 Into Room 01/04/25 08:16 Procedure Start 01/04/25 08:43 Procedure End 01/04/25 09:18 Procedure Start Time: 08:43 Procedure Stop Time: 09:18 Select all DRAINS/GRAFTS/IMPLANTS that apply: Implanted device Implanted device details: Arthrex knotless fibertak 2.6mm all suture trans cuff rotator cuff implant x 2 Estimated Blood Loss: 10 Specimen collected: No Description of surgery: Patient brought to the operating room theater. Placed supine on the table. General anesthesia induced. 2 g of IV Ancef administered prior to the start of the case. All bony prominences padded. SCDs on the legs. Patient transferred left side up lateral decubitus beanbag positioner. Axillary roll used. Upper extremity prepped and draped in the usual sterile fashion with chlorhexidine-based prep solution allowing over 3 minutes drying time prior to draping. The arm in 45 degrees of abduction with 10 pounds of inline traction. Preoperative timeout performed to confirm the site patient and the surgery. Began by inserting the arthroscope into the intra-articular portion of the shoulder through a standard arthroscopy portal. Did a full diagnostic arthroscopy. Cartilage on the humeral head and glenoid appeared normal. The biceps anchor and labrum was normal. The biceps had slight synovitis at the superior aspect leading to the groove. The biceps was stable in the groove. The subscapularis as well as the [facility] appeared normal and stable to probing. No loose bodies axillary recess entered this was normal. Inside-out spinal needle localized portal was created through the rotator interval. Examining the undersurface of the rotator cuff tendons there is partial fraying up to 10% on the undersurface more towards the anterior leading edge and some mild thinning of the tendon and some areas up to 30 or 40%. Arthroscope withdrawn and inserted into the subacromial space. There is a mild amount of bursitis. I performed a complete bursectomy anteriorly medially and laterally as well as posteriorly to the gutters. Identified the anterior leading edge of the acromion. I performed a acromioplasty with flattening of the anterior leading margin down to a smooth margin using a high-speed bur instrument. Slight release of the CA ligament. I identified the superior aspect of the supraspinatus again there is some partial-thickness fraying there in the mid to the anterior aspect. I elected to do a trans rotator cuff repair technique. I inserted a Arthrex fiber tack 2.6 mm all suture knotless anchor at the anterior leading edge of the tear as well as another same anchor just posterior to the tear with good spread between the anchors. I set the anchors made sure that the sutures were shuttling freely. I then passed the repair suture through the convergence suture on the opposite anchor and did the same for both repair sutures and then tensioned these tightly appropriately. I cut the suture short for the repair construct was stable and solid. Final arthroscopy pictures taken and saved onto the system. Arthroscope withdrawn wounds thoroughly irrigated. Portal sites closed with 3-0 Monocryl sutures. I did use to cannulas anteriorly and anterolaterally. Wounds cleaned with wet and dry dressing followed application of Steri-Strips Adaptic 4 x 4 gauze ABD dressing cloth tape with an abduction pillow sling for the upper extremity. Patient woken up from general anesthetic transferred off the operating table and taken to postanesthetic care unit in stable condition. All sponge needle instrument counts were correct no complications plan to the patient discharged home according to day surgery criteria follow-up in the office within 2 weeks time. I do recognize that the patient has a tape allergy/rash but we had to hold the dressing on with something, so elected cloth tape, we will try to change that as soon as possible. cpt 02435, [id number] Surgical Findings: as above Complications Complications: No Admit VTE Documentation VTE Present on Admission: No VTE Mechan Device Prophylaxis: SCD's VTE Pharm Prophylaxis ordered?: No Reason prophylaxis not ordered: Treatment Not Indicated
--- NOTE | 2025-01-04 09:30 | PCM.POST.ANE ---
Anesthesia: Postop Eval I Current Vital Signs Temperature: 98 F Pulse Rate: 82 Blood Pressure: 126/86 Respiratory Rate: 16 Pulse Ox: 95 Oxygen Delivery Method: Room Air Assessment Airway patent: Yes Spontaneous unlabored respirations: Yes Mental status: Awake and Calm nausea: No Vomiting: No Anesthesia Complication: No Fluid Hydration Crystalloid volume administer (ml): 1,000 Total IV fluid infused: 1,000 Progress Note Anesthesia document: Postop Eval 1 completed: Yes
--- NOTE | 2025-01-04 09:31 | EX.PCM.DISCH ---
Discharge Instructions Diet Discharge Diet: No restrictions Activity Discharge Activity: May Shower Ice area for (Minutes): 10 Lifting Restrictions: pendulums, elbow ROM 4x/day Additional Activity Instructions:: may remove sling at rest, no lifting over 1 pound Dressing / Incision Call your doctor if your incision/area has: Continuous Slow Oozing, Sudden Increased Bleeding, Increased Pain/ Swelling, Increased Redness, Foul Smelling Discharge and Swelling at the incision site Call your doctor if you observe: Fever of 101 or Higher, Coldness, Increased Pain and Numbness or Tingling Change Dressing in: 2 days Cleanse incision/area with: Do not get Incision Wet Follow Up Care Please Follow Up With: Martin Tolentino MD When: 2-5 days or within 2 weeks per preference Test Results: Test results from this visit will be discussed in further detail at your follow-up appointment, if applicable. Discharge Plan Admission Attending Provider: Martin Tolentino Primary Care Provider: Care Physician,No Primary Instructions Patient Instructions: After Shoulder Arthroscopy Print Language: Bahraini Discharge Orders/Prescriptions Prescriptions: New oxycodone-acetaminophen [Percocet] 5-325 mg tablet 1 tab PO Q4H MDD 6 PRN (Reason: pain) 3 Days Qty: 20 0RF No Action hydrochlorothiazide 25 mg tablet 25 mg PO QDAY omeprazole 40 mg capsule,delayed release(DR/EC) 40 mg PO QDAY meloxicam 15 mg tablet 15 mg PO QDAY sucralfate 100 mg/mL suspension 5 ml PO ACHS magnesium oxide 400 mg (241.3 mg magnesium) tablet 400 mg PO QDAY aspirin 81 mg tablet,chewable 1 tab PO QDAY Patient Comments: PT CHECKING WITH DR TOLENTINO ON HOLD ? LEFT MESSAGE WITH [facility] TO CONTACT PT WELL. atorvastatin 40 mg tablet 40 mg PO QDAY tramadol 50 mg tablet 50 mg PO Q12H PRN (Reason: pain) hyoscyamine sulfate 0.125 mg tablet, sublingual 0.125 mg sublingual 4X/DAY trazodone 150 MG tablet 150 mg PO DAILY albuterol sulfate 2.5 mg /3 mL (0.083 %) solution for nebulization 2.5 mg inhalation TID gabapentin 300 mg capsule 300 mg PO TID Spiriva Respimat 1.25 mcg/actuation mist 2 puff INHALATION DAILY Other Ambulatory Orders: 12 Lead EKG (Routine) Timeframe: 20241227 Location: None Selected Ordered By: Dr. Celestino Cronin Referrals / Follow Up: Martin Tolentino MD [Med Staff - Active Staff] - Care Physician,No Primary [Primary Care Provider] - Disposition Disposition (needs filled in before D/C Order can be placed): Home, Self Care
--- NOTE | 2025-01-04 10:08 | POSTOPAN2_ITS ---
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 Spontaneous unlabored Yes 01/04/25 09:31 CONSTRUCTION PROJECT ASSISTANT.MDOT respirations Mental status Awake,Calm 01/04/25 09:31 CONSTRUCTION PROJECT ASSISTANT.MDOT nausea No 01/04/25 09:31 CONSTRUCTION PROJECT ASSISTANT.MDOT Vomiting No 01/04/25 09:31 CONSTRUCTION PROJECT ASSISTANT.MDOT Anesthesia Postop Eval I: Fluid Summary Crystalloid volume administer 1,000 01/04/25 09:31 CONSTRUCTION PROJECT ASSISTANT.MDOT (ml) Colloids volume administered ( ml) Blood Product volume administered (ml) Total IV fluid infused 1,000 01/04/25 09:31 CONSTRUCTION PROJECT ASSISTANT.MDOT Anesthesia Postop Eval I: Summary Notes Anesthesia Complication No 01/04/25 09:31 CONSTRUCTION PROJECT ASSISTANT.MDOT Anesthesia Complication Comment: Post-operative progress note Anesthesia: Postop Eval II Evaluation Mental status: Awake and Calm Pain Level: 1 nausea: No Vomiting: No Complications Anesthesia Complication: No
--- NOTE | 2025-01-04 10:08 | PCM.POSTANE2 ---
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 Spontaneous unlabored Yes 01/04/25 09:31 [employer] COMPANY ARTISTIC DIRECTOR.MDOT respirations Mental status Awake,Calm 01/04/25 09:31 [employer] COMPANY ARTISTIC DIRECTOR.MDOT nausea No 01/04/25 09:31 BAL[employer] COMPANY ARTISTIC DIRECTOR.MDOT Vomiting No 01/04/25 09:31 [employer] COMPANY ARTISTIC DIRECTOR.MDOT Anesthesia Postop Eval I: Fluid Summary Crystalloid volume administer 1,000 01/04/25 09:31 [employer] COMPANY ARTISTIC DIRECTOR.MDOT (ml) Colloids volume administered ( ml) Blood Product volume administered (ml) Total IV fluid infused 1,000 01/04/25 09:31 [employer] COMPANY ARTISTIC DIRECTOR.MDOT Anesthesia Postop Eval I: Summary Notes Anesthesia Complication No 01/04/25 09:31 [employer] COMPANY ARTISTIC DIRECTOR.MDOT Anesthesia Complication Comment: Post-operative progress note Anesthesia: Postop Eval II Evaluation Mental status: Awake and Calm Pain Level: 1 nausea: No Vomiting: No Complications Anesthesia Complication: No
--- NOTE | 2025-01-04 10:46 | SUR.PHASEII ---
phase 2: patient with chronic cough; productive yellow sputum. no distress.
--- OUTSIDE RECORDS SUMMARY | 2025-01-05 03:34 | XMS RPT_ITS | CCD ---
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 for constipation, # 20 cap(s), 0 Refill(s), [id number] Constipation, 175.3, cm, 12/22/23 15:05:00 EDT, Height, kg, 12/22/23 15:05:00 EDT, Dosing Weight Start Date: 01/04/24 Status: Ordered Start: 09-14-2023 Colace 100 mg oral capsule Dose : 100 mg = 1 cap(s), Oral, BID, PRN as needed for constipation, # 20 cap(s), 0 Refill(s), [id number], Constipation, 177.8, cm, 09/14/23 15:52:00 EDT, Height, kg, 09/14/23 15:52:00 EDT, Dosing Weight Start Date: 09/14/23 Status: Ordered doxycycline hyclate 100 mg oral capsule (2 sources) Tetracycline-class Drug Start: 08-21-2023 End: 08-28-2023 doxycycline hyclate 100 mg oral capsule Dose : 100 mg = 1 cap(s), Oral, BID, X 7 day(s), # 14 cap(s), 0 Refill(s), 08/28/23 12:14:00 PM EST, [id number], 177.8, cm, 08/14/23 15:36:00 EST, Height, 115.7, kg, 08/14/23 15:36:00 EST, Dosing Weight Start Date: 08/21/23 Stop Date: 08/28/23 Status: Ordered Start: 04-27-2023 End: 05-07-2023 doxycycline monohydrate 100 mg oral capsule Dose : 100 mg = 1 cap(s), PO, BID, X 10 day(s), # 20 cap(s), 0 Refill(s), 05/07/23 11:49:00 AM EST, 99.6 Start Date: 04/27/23 Stop Date: 05/07/23 Status: Ordered ergocalciferol 1.25 mg oral capsule (12 sources) Provitamin D2 Compound Start: 11-09-2023 take 1 capsule by mouth every week ergocalciferol 50,000 intl units (1.25 mg) oral capsule 1 cap(s), Oral, qWeek, ON THU, # 12 cap(s), 0 Refill(s), Pharmacy: [id number], 175.3, cm, 10/26/23 9:37:00 EDT, Height, kg, 10/26/23 9:37:00 EDT, Dosing Weight Start Date: 11/09/23 Status: Ordered famotidine 40 mg oral tablet (10 sources) Histamine-2 Receptor Antagonist Start: 01-26-2023 take 1 tablet by mouth twice daily famotidine (PEPCID) 40 mg tablet Take 40 mg by mouth twice daily. 0 01/26/2023 Active Comment on above: take 1 tablet by [facility] twice a day for HEARTBURN Take 40 mg by mouth twice daily. fluticasone propionate 0.05 mg/actuat metered dose nasal spray (1 source) Corticosteroid Start: 10-27-2024 End: 12-26-2024 take 50 ug nasal route twice daily Flonase 50 mcg/inh nasal spray 50 mcg Dose = 1 spray(s), Nostril, each, BID, # 16 gram(s), 1 Refill(s), Pharmacy: [facility]/pharmacy #[id number], Seasonal allergies, 177.8, cm, 10/21/24 11:07:00 EDT, Height, kg, 10/21/24 11:07:00 EDT, Dosing Weight Start Date: 10/27/24 Stop Date: 12/26/24 Status: Ordered Quantity: 16.0 Unit: g Repeat number: 2 Indications: Other seasonal allergic rhinitis; fluticasone / salmeterol (4 sources) Corticosteroid, beta2-Adrenergic Agonist Start: 11-27-2023 take 2 doses by inhalation once daily Advair Diskus 100 mcg-50 mcg inhalation powder Dose = 2 inh, Inhalation, qDay, 0 Refill(s) Start Date: 11/27/23 Status: Ordered Start: 09-14-2023 End: 03-12-2024 take 1 dose by inhalation twice daily Advair Diskus 100 mcg-50 mcg inhalation powder Dose = 1 puff(s), Inhalation, BID, # 1 EA, 1 Refill(s), [id number], Asthma, 177.8, cm, 09/14/23 15:52:00 EDT, Height, kg, 09/14/23 15:52:00 EDT, Dosing Weight Start Date: 09/14/23 Stop Date: 03/12/24 Status: Ordered furosemide 20 mg oral tablet (1 source) Loop Diuretic Start: 10-24-2024 End: 11-07-2024 Lasix 20 mg oral tablet Dose : 20 mg = 1 tab(s), Oral, qDay, # 14 tab(s), 0 Refill(s), [id number], Bilateral lower extremity edema, 177.8, cm, 10/21/24 11:07:00 EDT, Height, kg, 10/21/24 11:07:00 EDT, Dosing Weight Start Date: 10/24/24 Stop Date: 11/07/24 Status: Ordered Quantity: 14.0 Unit: tab(s) Repeat number: 1 Indications: Localized edema; gabapentin 300 mg oral capsule (20 sources) Anti-epileptic Agent Start: 04-12-2024 End: 02-11-2025 take 1 capsule by mouth three times daily gabapentin 300 mg oral capsule 1 cap(s), Oral, TID, # 90 cap(s), 3 Refill(s), Pharmacy: [facility], Generalized neuropathy, 177.8, cm, 10/07/24 10:48:00 EDT, Height, 115.13, kg, 10/07/24 10:48:00 EDT, Dosing Weight Start Date: 10/14/24 Stop Date: 02/11/25 Status: Ordered Quantity: 90.0 Unit: cap(s) Repeat number: 4 Indications: Polyneuropathy, unspecified; Start: 11-12-2023 take 1 capsule by mo ut three times daily gabapentin 300 mg oral capsule 1 cap(s), Oral, TID, # 90 cap(s), 30, 0 Refill(s), Pharmacy: [id number], 175.3, cm, 10/26/23 9:37:00 EDT, Height, 113.63, kg, 10/26/23 9:37:00 EDT, Dosing Weight Start Date: 11/12/23 Status: Ordered Start: 08-31-2023 End: 09-30-2023 gabapentin 300 mg oral capsu le Dose : 300 mg = 1 cap(s), Oral, TID, # 90 cap(s), 0 Refill(s), Pharmacy: [facility]/pharmacy #[id number], Neuropathic pain, 177.8, cm, 08/31/23 10:32:00 EST, Height, 115.7, kg, 08/31/23 10:32:00 EST, Dosing Weight Start Date: 08/31/23 Stop Date: 09/30/23 Status: Ordered Start: 10-22-2018 End: 12-09-2020 take 1 capsule by mouth three times daily gabapentin (NEURONTIN) 300 mg capsule Indications: Spinal stenosis of lumbosacral region , Chronic right-sided low back pain with right-sided sciatica Take 1 capsule by mouth three times daily for 90 days. 90 capsule 2 10/12/2019 01/10/2020 Active Comment on above: Take 1 capsule by [facility] three times daily for 90 days. hydroCHLOROthiazide 25 mg oral tablet (20 sources) Thiazide Diuretic Start: 025 End: 025 take 1 tablet by mouth once daily hydroCHLOROthiazide 25 mg oral tablet 1 tab(s), Oral, qDay, # 90 tab(s), 1 Refill(s), Pharmacy: [facility], 177.8, cm, 03/07/24 14:20:00 EDT, Height, kg, 04/18/24 11:07:00 EDT, Dosing Weight Start Date: 07/12/24 Stop Date: 01/08/25 Status: Ordered Quantity: 90.0 Unit: tab(s) Repeat number: 2 Start: 02-09-2024 take 1 tablet by [place] once daily hydroCHLOROthiazide 25 mg oral tablet 1 tab(s), Oral, qDay, # 90 tab(s), 0 Refill(s), Pharmacy: [facility]/pharmacy #[id number], 177.8, cm, 01/14/24 7:26:00 EDT, Height, kg, 01/14/24 7:26:00 EDT, Dosing Weight Start Date: 02/09/24 Status: Ordered Start: 08-14-2023 End: 11-12-2023 take 1 tablet by mouth once daily hydroCHLOROthiazide 25 mg oral tablet 1 tab(s), Oral, qDay, # 90 tab(s), 0 Refill(s), Pharmacy: [id number], 175.3, cm, 10/26/23 9:37:00 EDT, Height, kg, 10/26/23 9:37:00 EDT, Dosing Weight Start Date: 11/10/23 Status: Ordered Start: 12-01-2018 End: 12-09-2020 take 1 tablet by mouth once daily hydroCHLOROthiazide 25 mg oral tablet take 1 tablet by mouth once daily Start Date: 04/19/19 Status: Ordered hyoscyamine sulfate 0.125 mg sublingual tablet (20 sources) Start: 07-12-2024 End: 03-12-2025 hyoscyamine 0.125 mg subling ual tablet Dose : 0.125 mg = 1 tab(s), Sublingual, QID, place 1 tablet under the tongue and ALLOW to dissolve before meals and at bedtime, # 360 tab(s), 1 Refill(s), Pharmacy: [facility], 177.8, cm, 08/22/24 11:28:00 EST, Height, kg, 08/22/24 11:28:00 EST, Dosing Weight Start Date: 09/13/24 Stop Date: 03/12/25 Status: Ordered Quantity: 360.0 Unit: tab(s) Repeat number: 2 Start: 08-14-2023 End: 11-12-2023 hyoscyamine 0.125 mg subling ual tablet Dose : 0.125 mg = 1 tab(s), Sublingual, QID, place 1 tablet under the tongue and ALLOW to dissolve before meals and at bedtime, # 360 tab(s), 0 Refill(s), Pharmacy: [facility]/pharmacy #[id number], 177.8, cm, 08/14/23 15:36:00 EST, Height, kg, 08/14/23 15:36:00 EST, Dosing Weight Start Date: 08/14/23 Stop Date: 11/12/23 Status: Ordered Start: 08-05-2021 End: 05-05-2023 take 1 tablet under the tongue at bedtime hyoscyamine sublingual (LEVSIN SL) 0.125 mg Dissolve 1 tablet under the tongue before meals and at bedtime. 360 tablet 0 05/05/2023 Active Comment on above: Dissolve 1 tablet un andres the tongue every 4 hours as needed. dissolve 1 tablet un andres the tongue every 4 hours if needed Dissolve 1 tablet un andres the tongue before meals and at bedtime. ibuprofen 600 mg oral tablet (3 sources) Nonsteroidal Anti-inflammatory Drug Start: 03-04-2023 take 600 mg by mouth every six hours as needed Ibuprofen [Motrin] 600 MG PO EVERY 6 HOURS NEEDED PRN March 04, 2023 Active Start: 03-04-2023 take 600 mg by mouth every six hours as needed Ibuprofen 600 MG PO EVERY 6 HOURS NEEDED PRN March 04, 2023 Active Start: 01-12-2021 End: 01-12-2021 ibuprofen (ADVIL;MOTRIN) tab let 600 mg ammonium lactate 120 mg/ml topical cream (8 sources) Start: 07-19-2024 ammonium lacta te 12% topical cream Apply 1 brandie, Topical, BID, in place of steroid, # 385 gram(s), 1 Refill(s), Pharmacy: [id number], Cream, 177.8, cm, 07/19/24 10:32:00 EST, Height, 114.4, kg, 07/19/24 10:32:00 EST, Dosing Weight Start Date: 07/25/24 Status: Ordered Quantity: 385.0 Unit: g Repeat number: 2 lidocaine 0.05 mg/mg medicated patch (20 sources) Antiarrhythmic, Amide Local Anesthetic Start: 10-14-2024 lidocaine 5% topical patch See Instructions, APPLY TO AFFECTED AREA DAILY REMOVE PATCHES AFTER 12 HOURS- ONLY USES NEEDED, # 30 patch(es), 1 Refill(s), Pharmacy: [facility], 177.8, cm, 10/07/24 10:48:00 EDT, Height, 115.13, kg, 10/07/24 10:48:00 EDT, Dosing Weight Start Date: 10/14/24 Status: Ordered Quantity: 30.0 Unit: patch(es) Repeat number: 2 Start: 07-12-2024 lidocaine 5% t opical patch See Instructions, APPLY TO AFFECTED AREA DAILY REMOVE PATCHES AFTER 12 HOURS- ONLY USES NEEDED, # 30 patch(es), 1 Refill(s), Pharmacy: [facility], 177.8, cm, 08/03/24 11:46:00 EST, Height, 114, kg, 08/03/24 11:46:00 EST, Dosing Weight Start Date: 08/04/24 Status: Ordered Quantity: 30.0 Unit: patch(es) Repeat number: 2 Start: 11-12-2023 lidocaine 5% t opical patch See Instructions, APPLY TO AFFECTED AREA DAILY REMOVE PATCHES AFTER 12 HOURS- ONLY USES NEEDED, # 30 patch(es), 0 Refill(s), Pharmacy: [id number], 175.3, cm, 10/26/23 9:37:00 EDT, Height, 113.63, kg, 10/26/23 9:37:00 EDT, Dosing Weight Start Date: 11/12/23 Status: Ordered Start: 08-31-2023 lidocaine 5% t opical patch Apply 1 patch(es), Topical, qDay, remove patches after 12 hours, # 30 patch(es), 0 Refill(s), Pharmacy: [facility]/pharmacy #[id number], Chronic low back pain, 177.8, cm, 08/31/23 10:32:00 EST, Height, 115.7, kg, 08/31/23 10:32:00 EST, Dosing Weight Start Date: 08/31/23 Status: Ordered Start: 03-04-2023 apply 1 dose transde rmal route once daily as needed for pain Lidocaine [Lidoderm] 1 PATCH T DAILY PRN 10 March 04, 2023 Active As needed for pain Start: 03-04-2023 apply 1 dose transde rmal route once daily as needed for pain Lidocaine 1 PATCH T DAILY PRN 10 March 04, 2023 Active As needed for pain Start: 01-12-2021 End: 01-22-2021 lidocaine (LIDODERM) 5 % Tara ce 1 patch onto the skin daily for 10 days 12 hours on, 12 hours off. 10 patch 0 01/12/2021 01/22/2021 Active Start: 01-12-2021 lidocaine 4 % external patch 1 patch magnesium oxide 400 mg oral tablet (13 sources) Start: 09-13-2024 End: 11-12-2024 magnesium oxide 400 mg oral tablet Dose : 400 mg = 1 tab(s), Oral, BID, TAKE 1 TAB BY MOUTH TWICE A DAY FOR CRAMPS INS MAX 1TAB/DAY, X 30 day(s), # 60 tab(s), 1 Refill(s), 11/12/24 2:37:00 PM EDT, Pharmacy: [facility], 177.8, cm, 08/22/24 11:28:00 EST, Height, kg, 08/22/24 11:28:00 EST, Dosing Weight Start Date: 09/13/24 Stop Date: 11/12/24 Status: Ordered Quantity: 60.0 Unit: tab(s) Repeat number: 2 Start: 07-12-2024 End: 08-11-2024 magnesium oxide 400 mg oral tablet Dose : 400 mg = 1 tab(s), Oral, BID, TAKE 1 TAB BY MOUTH TWICE A DAY FOR CRAMPS INS MAX 1TAB/DAY, # 60 tab(s), 0 Refill(s), 08/11/24 4:08:00 PM EST, Pharmacy: [facility], 177.8, cm, 03/07/24 14:20:00 EDT, Height, kg, 04/18/24 11:07:00 EDT, Dosing Weight Start Date: 07/12/24 Stop Date: 08/11/24 Status: Ordered Quantity: 60.0 Unit: tab(s) Repeat number: 1 Start: 11-27-2023 magnesium oxid e 400 mg oral tablet Dose : 400 mg = 1 tab(s), Oral, qDay, 0 Refill(s) Start Date: 11/27/23 Status: Ordered Start: 01-27-2023 take 1 tablet by [place] th once daily magnesium oxide (MAG-OX) 400 mg (241.3 mg magnesium) tablet Take 1 tablet by mouth once daily. 0 01/27/2023 Active Comment on above: Take 1 tablet by [place] th once daily. meloxicam 15 mg oral tablet (20 sources) Nonsteroidal Anti-inflammatory Drug Start: 09-13-2024 End: 03-12-2025 meloxicam 15 mg oral tablet Dose : 15 mg = 1 tab(s), Oral, qDay, TAKE 1 TABLET BY MOUTH EVERY DAY NEEDED FOR PAIN WITH FOOD FOR 90 DAYS, # 90 tab(s), 1 Refill(s), Pharmacy: [facility], 177.8, cm, 08/22/24 11:28:00 EST, Height, kg, 08/22/24 11:28:00 EST, Dosing Weight Start Date: 09/13/24 Stop Date: 03/12/25 Status: Ordered Quantity: 90.0 Unit: tab(s) Repeat number: 2 Start: 07-12-2024 meloxicam 15 m g oral tablet Dose : 15 mg = 1 tab(s), Oral, qDay, TAKE 1 TABLET BY MOUTH EVERY DAY NEEDED FOR PAIN WITH FOOD FOR 90 DAYS, # 90 tab(s), 0 Refill(s), Pharmacy: [facility], 177.8, cm, 03/07/24 14:20:00 EDT, Height, kg, 04/18/24 11:07:00 EDT, Dosing Weight Start Date: 07/12/24 Status: Ordered Quantity: 90.0 Unit: tab(s) Repeat number: 1 Start: 11-27-2023 meloxicam 15 m g oral tablet Dose : 15 mg = 1 tab(s), Oral, qDay, # 30 tab(s), 0 Refill(s) Start Date: 11/27/23 Status: Ordered Start: 01-26-2023 End: 11-12-2023 meloxicam 15 mg oral tablet Dose : 15 mg = 1 tab(s), Oral, qDay, take 1 tablet by mouth once daily if needed for pain (TAKE WITH FOOD!), # 90 tab(s), 0 Refill(s), Pharmacy: [facility]/pharmacy #[id number], 177.8, cm, 08/14/23 15:36:00 EST, Height, kg, 08/14/23 15:36:00 EST, Dosing Weight Start Date: 08/14/23 Stop Date: 11/12/23 Status: Ordered meloxicam (MOBIC ) 15 MG tablet Take 15 mg by mouth 0 Active Comment on above: Take 1 tablet by [place] th once daily. Take 15 mg by mouth once daily. Take 1 tablet by [place] th once daily as needed for pain. Take with food! metFORMIN hydrochloride 500 mg oral tablet (15 sources) Biguanide Start: 11-12-2023 metFORMIN 500 mg oral tablet (IR) Dose : 500 mg = 1 tab(s), Oral, qDay, # 100 tab(s), 0 Refill(s), [id number] Prediabetes, 175.3, cm, 10/26/23 9:37:00 EDT, Height, kg, 10/26/23 9:37:00 EDT, Dosing Weight Start Date: 11/12/23 Status: Ordered Start: 09-14-2023 metFORMIN 500 mg oral tablet (IR) Dose : 500 mg = 1 tab(s), Oral, Daily, # 100 tab(s), 0 Refill(s), [id number], Prediabetes, 177.8, cm, 09/14/23 15:52:00 EDT, Height, kg, 09/14/23 15:52:00 EDT, Dosing Weight Start Date: 09/14/23 Status: Ordered methocarbamol 500 mg oral tablet (1 source) Muscle Relaxant Start: 09-28-2023 End: 10-05-2023 methocarbamol 500 mg oral tablet Dose : 1,000 mg = 2 tab(s), Oral, QID, X 7 day(s), # 56 tab(s), 0 Refill(s), 10/05/23 10:25:00 AM EDT, [id number], Lumbar radiculopathy, 177.8, cm, 09/28/23 10:10:00 EDT, Height, kg, 09/28/23 10:10:00 EDT, Dosing Weight Start Date: 09/28/23 Stop Date: 10/05/23 Status: Ordered methylPREDNISolone 4 mg oral tablet (4 sources) Corticosteroid Start: 08-13-2024 End: 08-19-2024 Medrol Dosepak 4 mg oral tablet Per Dosepak Instructions, Oral, Daily, X 6 day(s), # 21 tab(s), 0 Refill(s), 08/19/24 6:43:00 PM EST Start Date: 08/13/24 Stop Date: 08/19/24 Status: Ordered Quantity: 21.0 Unit: tab(s) Repeat number: 1 Start: 08-10-2023 End: 08-16-2023 Medrol 4 mg oral tablet 6-5- 4-3-2-1 tab(s), Oral, Daily, 24mg day 1, 20mg day 2, 16mg day 3, 12 mg day 4, 8mg day 5, 4mg day 6, X 6 day(s), # 21 tab(s), 0 Refill(s), 08/16/23 1:38:00 PM EST Start Date: 08/10/23 Stop Date: 08/16/23 Status: Ordered Start: 01-29-2023 End: 02-10-2023 Methylprednisolone [Medrol D osepak] 0 MG PO DIRECTED January 29, 2023 February 10, 2023 Discontinued Start: 01-29-2023 End: 02-10-2023 Methylprednisolone 0 MG PO A S DIRECTED January 29, 2023 Discontinued mupirocin 0.02 mg/mg topical ointment (4 sources) RNA Synthetase Inhibitor Antibacterial Start: 11-27-2023 mupirocin 2% topical ointment Apply 1 brandie, Topical, BID, Bilateral intranasal application twice daily for 5 days prior to surgery &/or as many days leading up to surgery as possible due to surgical urgency/scheduling. Send to patient's preferred pharmacy., Apply to: nostril, each, # 22 gram(s), 0 Refill(s), Pharmacy: [facility]/pharmacy #[id number], Ointment, 170.2, cm, 11/27/23 12:06:00 EDT, Height, 111.5, kg, 11/27/23 12:06:00 EDT, Dosing Weight Start Date: 11/27/23 Status: Ordered Start: 08-21-2023 End: 08-28-2023 mupirocin 2% topical ointmen t Apply 1 brandie, Topical, TID, X 7 day(s), # 22 gram(s), 0 Refill(s), Pharmacy: [facility]/pharmacy #[id number], Ointment, 177.8, cm, 08/14/23 15:36:00 EST, Height, 115.7, kg, 08/14/23 15:36:00 EST, Dosing Weight Start Date: 08/21/23 Stop Date: 08/28/23 Status: Ordered Start: 02-25-2023 End: 03-07-2023 mupirocin (BACTROBAN) 2 % oi ntment Apply to affected area three times daily for 10 days. 22 g 0 02/25/2023 03/07/2023 Active Comment on above: Apply to affected ar ea three times daily for 10 days. naproxen 500 mg oral tablet (4 sources) Nonsteroidal Anti-inflammatory Drug Start: 3 End: 3 take 1 tablet by mouth twice daily as needed Naproxen [Naprosyn] 1 TAB PO TWICE A DAY PRN February 22, 2023 March 04, 2023 Discontinued nystatin 100 unt/mg topical powder (2 sources) Polyene Antifungal Start: 5 End: nystatin 100,000 units/g topical powder Apply 1 brandie, Topical, BID, X 30 day(s), # 60 gram(s), 0 Refill(s), [facility], Powder, 177.8, cm, 03/07/24 14:20:00 EDT, Height, 108.6, kg, 04/18/24 11:07:00 EDT, Dosing Weight Start Date: 07/12/24 Stop Date: 08/11/24 Status: Ordered Quantity: 60.0 Unit: g Repeat number: 1 omeprazole 40 mg delayed release oral capsule (20 sources) Proton Pump Inhibitor Start: 5 End: omeprazole 40 mg oral delayed release capsule Dose : 40 mg = 1 cap(s), Oral, qDay, # 90 cap(s), 1 Refill(s), [facility], 177.8, cm, 08/22/24 11:28:00 EST, Height, kg, 08/22/24 11:28:00 EST, Dosing Weight Start Date: 09/13/24 Stop Date: 03/12/25 Status: Ordered Quantity: 90.0 Unit: cap(s) Repeat number: 2 Start: 02-09-2024 End: 05-09-2024 omeprazole 40 mg oral delaye d release capsule Dose : 40 mg = 1 cap(s), Oral, qDay, # 90 cap(s), 0 Refill(s), Pharmacy: [facility]/pharmacy #[id number], 177.8, cm, 01/14/24 7:26:00 EDT, Height, kg, 01/14/24 7:26:00 EDT, Dosing Weight Start Date: 02/09/24 Stop Date: 05/09/24 Status: Ordered Start: 02-10-2023 take 240 mg by mouth once francesca y Omeprazole [Prilosec] 240 MG PO DAILY February 10, 2023 Active Start: 01-26-2023 End: 11-12-2023 take 1 capsule by mouth once daily omeprazole (PRILOSEC) 40 mg capsule Take 40 mg by mouth once daily. 0 01/26/2023 Active Comment on above: take 1 capsule by mo ut every morning for HEARTBURN Take 40 mg by mouth once daily. ondansetron 4 mg oral tablet (4 sources) Serotonin-3 Receptor Antagonist Start: 08-08-2024 End: 08-10-2024 ondansetron 4 mg oral tablet Dose : 4 mg = 1 tab(s), Oral, q6h, X 2 day(s), # 10 tab(s), 0 Refill(s), 08/10/24 4:16:00 PM EST Start Date: 08/08/24 Stop Date: 08/10/24 Status: Ordered Quantity: 10.0 Unit: tab(s) Repeat number: 1 Start: 02-10-2023 Ondansetron [Z ofran Odt] 4 MG PO EVERY SIX [id number] February 10, 2023 Active Start: 11-19-2021 End: 11-23-2021 ondansetron 4 mg oral tablet , disintegrating Dose : 4 mg = 1 tab(s), Oral, q6h, X 4 day(s), # 16 tab(s), 0 Refill(s), 11/23/21 14:29:00 EDT Start Date: 11/19/21 Stop Date: 11/23/21 Status: Ordered polyethylene glycol 3350 24838 mg powder for oral solution (14 sources) Osmotic Laxative Start: 09-13-2024 End: 11-12-2024 take 17 doses by mouth once daily as needed for constipation polyethylene glycol 3350 powder packet Dose : 17 gram(s) =, Oral, qDay, PRN Constipation, # 30 packet(s), 1 Refill(s), Pharmacy: [facility], 177.8, cm, 08/22/24 11:28:00 EST, Height, kg, 08/22/24 11:28:00 EST, Dosing Weight Start Date: 09/13/24 Stop Date: 11/12/24 Status: Ordered Quantity: 30.0 Unit: packet(s) Repeat number: 2 Start: 07-12-2024 take 17 doses by mouth once da mikal polyethylene glycol 3350 powder packet Dose : 17 gram(s) =, Oral, qDay, # 30 EA, 0 Refill(s), Pharmacy: [facility], 177.8, cm, 03/07/24 14:20:00 EDT, Height, kg, 04/18/24 11:07:00 EDT, Dosing Weight Start Date: 07/12/24 Status: Ordered Quantity: 30.0 Unit: EA Repeat number: 1 Start: 01-02-2024 polyethylene g lycol 3350 Oral, qDay, 0 Refill(s) Start Date: 01/02/24 Status: Ordered Start: 09-14-2023 End: 09-28-2023 take 17 doses by mouth once daily as needed for constipation MiraLax oral powder for reconstitution Dose : 17 gram(s) =, Oral, Daily, PRN Constipation, X 14 day(s), # 14 EA, 0 Refill(s), 09/28/23 4:25:00 PM EDT, Pharmacy: [facility]/pharmacy #[id number], Constipation, 177.8, cm, 09/14/23 15:52:00 EDT, Height, kg, 09/14/23 15:52:00 EDT, Dosing Weight Start Date: 09/14/23 Stop Date: 09/28/23 Status: Ordered Start: 10-10-2019 End: 01-08-2020 polyethylene glycol 3350 (MO RALAX) 17 gram/dose powder Take 17 g by mouth once daily. 1 Bottle 1 10/10/2019 01/08/2020 Active Comment on above: Take 17 g by mouth o nce daily. sucralfate 100 mg/ml oral suspension (5 sources) Aluminum Complex Start: 5 take 10 mL by mouth once daily sucralfate 1 g/10 mL oral suspension TAKE 10 ML BY MOUTH ONCE DAILY Start Date: 07/11/24 Status: Ordered Repeat number: 1 60 actuat tiotropium 0.28099 mg/actuat inhalation spray (16 sources) Anticholinergic Start: 5 End: Spiriva Respimat 1.25 mcg/inh inhalation aerosol 2 puff(s), Inhalation, qDay, # 4 gram(s), 2 Refill(s), Pharmacy: [facility], 177.8, cm, 08/22/24 11:28:00 EST, Height, kg, 08/22/24 11:28:00 EST, Dosing Weight Start Date: 08/25/24 Stop Date: 11/23/24 Status: Ordered Quantity: 4.0 Unit: g Repeat number: 3 Start: 07-12-2024 Spiriva Respim at 1.25 mcg/inh inhalation aerosol 2 puff(s), Inhalation, qDay, # 4 gram(s), 0 Refill(s), Pharmacy: [facility], 177.8, cm, 03/07/24 14:20:00 EDT, Height, kg, 04/18/24 11:07:00 EDT, Dosing Weight Start Date: 07/12/24 Status: Ordered Quantity: 4.0 Unit: g Repeat number: 1 Start: 12-08-2023 Spiriva Respim at 1.25 mcg/inh inhalation aerosol 2 puff(s), Inhalation, qDay, # 4 gram(s), 0 Refill(s) Start Date: 12/08/23 Status: Ordered tiotropium 1.25 mcg/inh inhalation aerosol (3 sources) Start: 09-16-2023 End: 06-12-2024 take 2 puff(s) by inhalation once daily tiotropium 1.25 mcg/inh inhalation aerosol 2 puff(s), Inhalation, qDay, # 1 EA, 2 Refill(s), [id number] 177.8, cm, 09/14/23 15:52:00 EDT, Height, kg, 09/14/23 15:52:00 EDT, Dosing Weight Start Date: 09/16/23 Stop Date: 06/12/24 Status: Ordered tiZANidine 4 mg oral tablet (19 sources) Central alpha-2 Adrenergic Agonist Start: 07-12-2024 End: 08-18-2024 tiZANidine 4 mg oral tablet Dose : 4 mg = 1 tab(s), Oral, q8h, TAKE 1 TABLET BY MOUTH EVERY 8 HOURS NEEDED FOR MUSCLE SPASM, # 21 tab(s), 1 Refill(s), Pharmacy: [id number], 177.8, cm, 08/03/24 11:46:00 EST, Height, kg, 08/03/24 11:46:00 EST, Dosing Weight Start Date: 08/04/24 Stop Date: 08/18/24 Status: Ordered Quantity: 21.0 Unit: tab(s) Repeat number: 2 Start: 02-02-2024 take 1 tablet by madison th every eight hours as needed for muscle spasms tiZANidine 4 mg oral tablet 1 tab(s), Oral, q8h, PRN NEEDED FOR MUSCLE SPASM, # 90 tab(s), 0 Refill(s), Pharmacy: [id number], 177.8, cm, 01/14/24 7:26:00 EDT, Height, kg, 01/14/24 7:26:00 EDT, Dosing Weight Start Date: 02/02/24 Status: Ordered Start: 01-02-2024 take 1 tablet by madison th every eight hours as needed for muscle spasms tiZANidine 4 mg oral tablet 1 tab(s), Oral, q8h, PRN NEEDED FOR MUSCLE SPASM, # 30 tab(s), 0 Refill(s), Pharmacy: [facility]/pharmacy #[id number], 175.3, cm, 12/22/23 15:05:00 EDT, Height, kg, 12/22/23 15:05:00 EDT, Dosing Weight Start Date: 01/02/24 Status: Ordered Start: 12-10-2023 take 1 tablet by madison th every eight hours as needed for muscle spasms tiZANidine 4 mg oral tablet 1 tab(s), Oral, q8h, PRN NEEDED FOR MUSCLE SPASM, # 90 tab(s), 0 Refill(s), Pharmacy: [id number], 177.8, cm, 12/08/23 14:05:00 EDT, Height, kg, 12/08/23 14:05:00 EDT, Dosing Weight Start Date: 12/10/23 Status: Ordered Start: 11-12-2023 take 1 tablet by madison th every eight hours as needed for muscle spasms tiZANidine 4 mg oral tablet 1 tab(s), Oral, q8h, PRN NEEDED FOR MUSCLE SPASM, # 90 tab(s), 0 Refill(s), Pharmacy: [facility] [id number], 175.3, cm, 10/26/23 9:37:00 EDT, Height, kg, 10/26/23 9:37:00 EDT, Dosing Weight Start Date: 11/12/23 Status: Ordered Start: 08-31-2023 tiZANidine 4 m g oral tablet Dose : 4 mg = 1 tab(s), Oral, q8h, PRN as needed for muscle spasm, # 90 tab(s), 0 Refill(s), Pharmacy: [facility]/pharmacy #[id number], 177.8, cm, 08/31/23 10:32:00 EST, Height, kg, 08/31/23 10:32:00 EST, Dosing Weight Start Date: 08/31/23 Status: Ordered traMADol hydrochloride 50 mg oral tablet (1 source) Opioid Agonist Start: 11-04-2024 End: 11-07-2024 traMADol 50 mg oral tablet Dose : 50 mg = 1 tab(s), Oral, q12h, PRN for pain, # 10 tab(s), 0 Refill(s), Cellulitis, 113.6 Start Date: 11/04/24 Stop Date: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 eGFR results. Performed By: #### M DW, ADIFF, CBC, ANEU, BMP, GFR #### [address] [address] BMPon 10-17-2024 BUN/Creatinine Ratio 18 ratio Normal 7-27 [facility] Comment on above: Performed By: #### M G, GFR, BMP #### [address] [address] Calcium [Mass/Vol] 9.1 mg/dL Normal 8.4-10.2 [facility] Comment on above: Performed By: #### M G, GFR, BMP #### [address] [address] Chloride [Moles/Vol] 103 mmol/L Normal 98-107 [facility] Comment on above: Performed By: #### M G, GFR, BMP #### [address] [address] CO2 [Moles/Vol] 28 mmol/L Normal 22-29 [facility] Comment on above: Performed By: #### M G, GFR, BMP #### [address] [address] Creatinine [Mass/Vol] 1.01 mg/dL Normal 0.70-1.30 [facility] Comment on above: Result Comment: Test ing performed on Siemens Dimension EXL analyzer using a modified kinetic Collins technique. Performed By: #### M G, GFR, BMP #### [address] [address] Electrolyte Balance 7.0 mEq/L Normal 4.0-15.0 [facility] Comment on above: Performed By: #### M G, GFR, BMP #### [address] [address] Glucose [Mass/Vol] 97 mg/dL Normal 70-105 [facility] Comment on above: Performed By: #### M G, GFR, BMP #### [address] [address] Potassium [Moles/Vol] 4.0 mmol/L Normal 3.5-5.1 [facility] Comment on above: Performed By: #### M G, GFR, BMP #### [address] [address] Sodium [Moles/Vol] 138 mmol/L Normal 136-145 [facility] Comment on above: Performed By: #### M G, GFR, BMP #### [address] [address] Urea nitrogen [Mass/Vol] 18 mg/dL Normal 7-18 [facility] Comment on above: Performed By: #### M G, GFR, BMP #### [address] [address] MGon 10-17-2024 Magnesium [Mass/Vol] 2.3 mg/dL Normal 1.8-2.4 [facility] Comment on above: Performed By: #### M DW, ADIFF, CBC, ANEU, BMP, GFR #### [address] [address] PRURon 10-17-2024 U Protein <6 Normal [facility] Comment on above: Performed By: #### U A, PRUR #### [address] [address] UAon 10-17-2024 Color (U) Yellow Normal [facility] Comment on above: Performed By: #### U A, PRUR #### [address] [address] Glucose (U) [Mass/Vol] Negative Normal Negative [facility] Comment on above: Performed By: #### U A, PRUR #### [place] [address] Ketones Ql (U) Negative Normal Negative [facility] Comment on above: Performed By: #### U A, PRUR #### [place] [address] UA Appear Clear Normal Clear [facility] Comment on above: Performed By: #### U A, PRUR #### [place] [address] UA Blood Small Abnormal Negative [facility] Comment on above: Performed By: #### U A, PRUR #### [place] [address] UA Leuk Est Negative Normal Negative [facility] Comment on above: Performed By: #### U A, PRUR #### [place] [address] UA Nitrite Negative Normal Negative [facility] Comment on above: Performed By: #### U A, PRUR #### [place] [address] UA pH 6.0 Normal 5.0 - 8.0 [facility] Comment on above: Performed By: #### U A, PRUR #### [place] [address] UA Protein Negative Normal Negative [facility] Comment on above: Performed By: #### U A, PRUR #### [place] [address] UA Spec Grav 1.010 Abnormal 1.015-1.025 [facility] Comment on above: Performed By: #### U A, PRUR #### [place] [address] UA Specimen Type Clean Catch Normal [facility] Comment on above: Performed By: #### U A, PRUR #### [place] [address] UA Urobilinogen 0.2 E.U./dL Normal 0.2-1.0 [facility] Comment on above: Performed By: #### U A, PRUR #### [place] [address] [place], [place] [address] Urobilinogen (U) [Mass/Vol] Negative Normal Negative [facility] Comment on above: Performed By: #### U A, PRUR #### [place] [address] [place], [place] [address] Orthopedic Visit Reporton Orthopedic Visit Report [facility] [address] [place] [address] [address] [place] [id number] OFFICE VISIT Date of Service: 10/10/24 MR#: [id number] Acct: [id number] Name: REJI VICTOR Rep #: [id number] : 1975 Provider: Dr. Martin ohara MD Age/Sex: 48/M Location: [facility] Status: Signed with Addenda ADDENDUM by CELINA Rivera on 10/10/24 at 1025 Office Procedure Documentation entered by Pérez Rivera MA 10/10/24 10:25: Ortho Injections Injections Yes Subacromial Injection Left Is this a patient provided medication?: No Details: Obtained consent for injection. Under sterile conditions, injected the patients left shoulder with 2cc Kenalog, and 4cc Bupivacaine. The patient tolerated the injection well without any noted complication. Patient should call our office if redness develops, pain worsens or if they have any concerns. Office Meds Kenalog 40 mg/mL suspension for injection Performing Provider: Martin Carvalho MD Performing Location: [facility] Administered by: Martin Carvalho MD on 10/10/24 10:24 Dose Route Admin Location Dispensed Lot Number Expiration Date NDC Man ufacturer 40 mg intra-articular Left shoulder 1 mL [id number] 10/27/25 4255-0545-51 [facility] [employer] Date cc: * Signed Intake Vital Signs 05/01/23 13:17 10/10/24 09:39 Height 5 ft 9 in 5 ft 9 in Weight: 246 lb 4 oz BMI 36.3 Intake Visit Reasons: LEFT SHOULDER Chief Complaint: Left shoulder Accompanied by: Is patient in pain?: Yes Pain scale (1-10): 7 Allergies adhesive tape (surgical tape) Adverse Reaction (Verified 10/10/24 09:43) Rash hydrocodone bitartrate (From Vicodin) Adverse Reaction (Verified 10/10/24 09:43) Nausea Medications ???Medication ???Instructions ???Recorded ???Confirmed ???Type albuterol sulfate 90 mcg/actuation 2 puff inhalation Q4H PRN PRN So b 12/09/18 10/10/24 History aerosol inhaler (ProAir HFA) /Or Wheezing trazodone 150 mg tablet 150 mg PO DAILY 03/14/20 10/10/24 History Have you fallen in the past year?: Yes PFSH Medical History Kidney stone Gallbladder abscess Impingement of left shoulder Tendinosis of left rotator cuff Left rotator cuff tear Left shoulder pain Rheumatoid aortitis Spinal stenosis GERD (gastroesophageal reflux disease) Migraines Surgical History H/O eye surgery History of back surgery Social History Smoking Status: Current every day smoker tobacco type: cigarettes and smokeless tobacco HPI LEFT SHOULDER Details: This documentation accurately reflects the service provided and the decisions made by me, Dr. Martin Carvalho MD 10/10/24 0819. Part of today???s visit was documented by [ ], acting as scribe. REJI VICTOR is a 48 year old M here today for left shoulder pain. 7/10 pain. 2 years. a couple falls. 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 sometimes worse at night. anterior pain. half pack a day smoker. RHD. Supplemental Info MRI from 09/26/2024 [facility] MRI shoulder left without contrast Radiologist impression 1. Small lesion in the proximal humerus has no aggressive features and is most compatible with a bone island 2. Supraspinatus tendinosis with low-grade bursal surface fraying/partial tearing. Associated mild subacromial subdeltoid bursitis 3. Mild subscapularis tendinosis 4. Findings and potential adhesive capsulitis. Clinical correlation is recommended PACS down, can't see images Coding Level of Care Code Attention Teresa Diagnoses Left shoulder pain M25.512 Left rotator cuff tear M75.102 Tendinosis of left rotator cuff M67.814 Impingement of left shoulder M25.812 Comment 08080 and cpt inject major Assessment and Plan Assessment and Plan (1) Left shoulder pain: Status: Acute Plan: 48-year-old man with left shoulder pain bursitis small bursal sided surface tear of the supraspinatus as well as tendinosis and signs of adhesive capsulitis. Patient would like to start with a cortisone injection we did that today follow-up in 6 weeks time or as needed. Pros and cons risks and benefits of left shoulder subacromial steroid injection were discussed. Patient wished to proceed. Risks include but not limited to infection, pain, stiffness, damage to other structures, neurovascular injury, wear further tear of the tendon and other structures such as the skin, bleeding, allergic reaction, acute flare reaction and other risks. Obtained informed consent for injection. Post (more content not included)... Normal [facility] A1Con 09-26-2024 Glucose [Mass/Vol] 117 mg/dL Normal [facility] Comment on above: Result Comment: Annie mated Average Glucose calculated by equation ((28.7xA1C)-46.7) Estimated average glucose (eAG) is a calculated value from Hemoglobin A1C and is sales representative [employer] of the average blood glucose level in the last 2-3 month period. Normal range: less than 114 mg/dL Performed By: #### M DW, ADIFF, CBC, ANEU, BMP, GFR #### [place] [address] [place], [place] [address] HbA1c (Bld) [Mass fraction] 5.7 % Normal 4.3-6.4 [facility] Comment on above: Performed By: #### M DW, ADIFF, CBC, ANEU, BMP, GFR #### [facility] [address] [place], [place] [address] LIPIDon 09-26-2024 Cholesterol [Mass/Vol] 204 mg/dL High 0-200 [facility] Comment on above: Result Comment: Chol esterol Reference Interval: Less than 200 Desirable 200-239 Borderline high risk 240 and above High risk Performed By: #### M DW, ADIFF, CBC, ANEU, BMP, GFR #### [place] [address] [place] [address] Cholesterol in HDL [Mass/Vol] 53 mg/dL Normal 40-60 [facility] Comment on above: Performed By: #### M DW, ADIFF, CBC, ANEU, BMP, GFR #### [place] [address] [place] [address] Cholesterol in LDL [Mass/Vol] 127 mg/dL Normal 0-130 [facility] Comment on above: Performed By: #### M DW, ADIFF, CBC, ANEU, BMP, GFR #### [place] [address] [place] [address] Triglyceride [Mass/Vol] 118 mg/dL Normal 0-150 [facility] Comment on above: Result Comment: Trig lyceride Reference Interval: Less than 150 Normal 150-199 Borderline high risk 200-499 High risk 500 or higher Very high risk Performed By: #### M DW, ADIFF, CBC, ANEU, BMP, GFR #### [place] [address] MRI SHOULDER W/O CONTRAST LE FTon 09-26-2024 MRI SHOULDER W/O CONTRAST LEFT ORIGINAL EXAMINATION: MRI OF THE LEFT SHOULDER WITHOUT CONTRAST 09/26/2024 12:02 pm TECHNIQUE: Multiplanar multisequence MRI of the left shoulder was performed without the administration of intravenous contrast. COMPARISON: Pain and stiffness, follow-up from CT thorax for left humeral head sclerotic density HISTORY: ORDERING SYSTEM PROVIDED HISTORY: Reason for Exam: f/u on CT thorax, complaints of pain and stiffness FINDINGS: ROTATOR CUFF: Mild subscapularis tendinosis without high-grade tear. Supraspinatus tendinosis noted with low-grade bursal surface fraying/partial tearing. Intact infraspinatus and teres minor tendons. No significant muscle edema or atrophy. BICEPS TENDON: Intact vertical and horizontal portions of the long head of the biceps tendon. LABRUM: The glenoid labrum is intact to the extent that it is visualized. No paralabral cyst. GLENOHUMERAL JOINT: Physiologic amount of joint fluid. No evidence of high-grade cartilage loss. Normal alignment. Thickening of inferior glenohumeral ligaments and mild T1 isointense soft tissue within the rotator interval. AC JOINT AND ACROMIOCLAVICULAR ARCH: No significant acromial downsloping or subacromial spur. Mild degenerative changes. Intact acromioclavicular and coracoclavicular ligaments. Mild subacromial/subdeltoid bursitis. BONE MARROW: No evidence of acute fracture or aggressive marrow replacing lesion. T1/T2 hypointense lesion measuring up to 0.7 cm in posterior humeral head is consistent with a bone island. OUTLET SPACES: Normal MRI appearance of the quadrilateral space. No significant narrowing of the supraspinatus outlet. IMPRESSION: 1. Small lesion in the proximal humerus has no aggressive features and is most compatible with a bone island 2. Supraspinatus tendinosis with low-grade bursal surface fraying/partial tearing. Associated mild subacromial subdeltoid bursitis 3. Mild subscapularis tendinosis. 4. Findings of potential adhesive capsulitis. Clinical correlation is recommended. I have personally reviewed the images of this examination and agree with the resident's findings and interpretation. Interpreted by: Yogi Sunshine MD Preliminary Report By: Dany Dangelo Electronically signed By Yogi Sunshine MD Dictated Date: 09/26/2024 12:30:49 PM Prelim Date: 09/26/2024 12:58:19 PM Sign Date: 09/26/2024 12:58:19 PM Ordering Provider: KARISSA Zayas [facility] PBNPon 09-26-2024 Natriuretic peptide B (Bld) [Mass/Vol] 15 pg/mL Normal 0-125 [facility] Comment on above: Result Comment: NT-p roBNP results of less than 300 pg/mL effectively rules out acute congestive heart failure with 99% negative predictive value. Performed By: #### M DW, ADIFF, CBC, ANEU, BMP, GFR #### [place] [address] [place], [place] [address] PSAon 09-26-2024 Prostate Specific Antigen 1.44 ng/mL Normal 0.00-4.00 [facility] Comment on above: Performed By: #### M DW, ADIFF, CBC, ANEU, BMP, GFR #### [place] [address] [place], [place] [address] CT THORAX SCREENING W/O CONT RASTon 09-08-2024 CT THORAX SCREENING W/O CONTRAST ORIGINAL EXAMINATION: LOW DOSE SCREENING CT OF THE CHEST WITHOUT CONTRAST09/05/2024 4:35 pm TECHNIQUE: Low dose lung cancer screening CT of the chest was performed without the administration of intravenous contrast. Multiplanar reformatted images are provided for review. Automated exposure control, iterative reconstruction, and/or weight based adjustment of the mA/kV was utilized to reduce the radiation dose to as low as reasonably achievable. COMPARISON: None. HISTORY: ORDERING SYSTEM PROVIDED HISTORY: Reason for Exam: Lung Cancer Screening 5ft 10in 230lb white male. current smoker. 30 pack years. Some SOB. no family hx FINDINGS: There are no acute upper abdominal findings. The heart is normal in size. No significant coronary artery calcifications are identified. There is trace pericardial fluid. The great vessels are normal in caliber. No evidence of lymphadenopathy. Mild upper lobe predominant centrilobular emphysema. Central airways are patent. No pleural effusion or pneumothorax. There are a few scattered calcified granulomatous nodules. There is minor scarring/subsegmental atelectasis within the lingula. Mild bronchiectasis. There is a 2 mm nodule in the right upper lobe on image 46 of series 2. There is a punctate left perifissural nodule, likely reflecting intrapulmonary node. There are degenerative changes of the spine. Within the left humeral head, there is a incompletely visualized 6 mm sclerotic focus without additional aggressive features. IMPRESSION: Punctate pulmonary nodule and benign nodules. For patients with appropriate lung cancer risk, annual CT screening is recommended. Nonspecific left humeral head 6 mm sclerotic density. This is likely too small for evaluation with bone scan even with SPECT/CT. Is there any outside hospital imaging to demonstrate stability? In abundance of caution, consider MRI of the shoulder for further characterization. Information below is for Lung nodule tracking purposes: Nodule: S3 BLN Other Findings: None Change: Na Recall : 1yr scr Recall Type: LDCT LungRads: 2 Interpreted by: Greg Combs DO Preliminary Report By: Greg Combs DO Electronically signed By Greg Combs DO Dictated Date: 09/08/2024 8:41:13 AM Prelim Date: 09/08/2024 8:52:44 AM Sign Date: 09/08/2024 8:52:44 AM Ordering Provider: KARISSA Zayas [facility] .Auto Diffon 08-13-2024 Basophil, Absolute 0.1 10 3/mcL Normal 0.0-0.3 [facility] Comment on above: Performed By: #### M DW, CMP, CBC, ADIFF, ANEU, PBNP, GFR, LAC #### [address] [address] Basophils/100 WBC (Bld) 0.6 % Normal 0.0-2.5 [facility] Comment on above: Performed By: #### M DW, CMP, CBC, ADIFF, ANEU, PBNP, GFR, LAC #### [address] [address] Eosinophil, Absolute 0.2 10 3/mcL Normal 0.0-0.7 [facility] Comment on above: Performed By: #### M DW, CMP, CBC, ADIFF, ANEU, PBNP, GFR, LAC #### [address] [address] Eosinophils/100 WBC (Bld) 1.7 % Normal 0.0-6.0 [facility] Comment on above: Performed By: #### M DW, CMP, CBC, ADIFF, ANEU, PBNP, GFR, LAC #### [address] [address] Lymphocyte, Absolute 2.7 10 3/mcL Normal 0.9-4.3 [facility] Comment on above: Performed By: #### M DW, CMP, CBC, ADIFF, ANEU, PBNP, GFR, LAC #### [address] [address] Lymphocytes/100 WBC (Bld) 28.4 % Normal 20.0-40.0 [facility] Comment on above: Performed By: #### M DW, CMP, CBC, ADIFF, ANEU, PBNP, GFR, LAC #### [address] [address] Monocyte, Absolute 0.6 10 3/mcL Normal 0.1-1.4 [facility] Comment on above: Performed By: #### M DW, CMP, CBC, ADIFF, ANEU, PBNP, GFR, LAC #### [address] [address] Monocytes/100 WBC (Bld) 5.9 % Normal 2.0-13.0 [facility] Comment on above: Performed By: #### M DW, CMP, CBC, ADIFF, ANEU, PBNP, GFR, LAC #### [address] [address] Neutrophils/100 WBC (Bld) 63.4 % Normal 50.0-75.0 [facility] Comment on above: Performed By: #### M DW, CMP, CBC, ADIFF, ANEU, PBNP, GFR, LAC #### [address] [address] .GFRon 08-13-2024 Estimated Glomerular Filtration Rate 105 ml/min/1.73sqm Normal [facility] Comment on above: Result Comment: Stages of Chronic Kidney Disease (CKD) Stage Description eGFR(ml/min/1.73 sq.m.) CKD 1 Normal kidney function or >=90 normal kindney function with possible kidney damage (ex. Proteinuria) CKD 2 Kidney damage with mild loss 60-89 of kidney function CKD 3a Mild to moderate loss of kidney 45-59 function CKD 3b Moderate to severe loss of 30-44 of kindey function CKD 4 Severe loss of kidney function 15-29 CKD 5 Kidney failure <15 Note: (go live 2024) the eGFR calculation was updated to the 2020 CKD-EPI creatinine equation without a race factor to calculate the eGFR results. Performed By: #### M DW, CMP, CBC, ADIFF, ANEU, PBNP, GFR, LAC ####[address] [address] .MDWon 08-13-2024 Monocyte Distribution Width 17.30 Normal 0.00-20.00 [facility] Comment on above: Result Comment: For ED adult patients suspected of sepsis, MDW<=20.0 does not rule out sepsis or risk of sepsis Performed By: #### M DW, CMP, CBC, ADIFF, ANEU, PBNP, GFR, LAC #### [place] [address] .NEUABSon 08-13-2024 Neutrophil, Absolute 6.0 10 3/mcL Normal 2.3-8.1 [facility] Comment on above: Performed By: #### M DW, CMP, CBC, ADIFF, ANEU, PBNP, GFR, LAC #### [place] [address] CBCon 08-13-2024 Erythrocyte distribution width (RBC) [Ratio] 14.2 % Normal 11.5-15.5 [facility] Comment on above: Performed By: #### M DW, CMP, CBC, ADIFF, ANEU, PBNP, GFR, LAC #### [place] [address] Hematocrit (Bld) [Volume fraction] 42.7 % Normal 40.0-52.0 [facility] Comment on above: Performed By: #### M DW, CMP, CBC, ADIFF, ANEU, PBNP, GFR, LAC #### [place] [address] Hgb 14.6 G/dL Normal 13.0-17.5 [facility] Comment on above: Performed By: #### M DW, CMP, CBC, ADIFF, ANEU, PBNP, GFR, LAC #### [place] [address] MCH (RBC) [Entitic mass] 30.8 pg Normal 27.0-33.0 [facility] Comment on above: Performed By: #### M DW, CMP, CBC, ADIFF, ANEU, PBNP, GFR, LAC #### [place] [address] MCHC 34.2 G/dL Normal 32.0-36.0 [facility] Comment on above: Performed By: #### M DW, CMP, CBC, ADIFF, ANEU, PBNP, GFR, LAC #### [place] [address] MCV (RBC) [Entitic vol] 90.0 fL Normal 81.0-100.0 [facility] Comment on above: Performed By: #### M DW, CMP, CBC, ADIFF, ANEU, PBNP, GFR, LAC #### [place] [address] Platelet 217 10 3/mcL Normal 150-450 [facility] Comment on above: Performed By: #### M DW, CMP, CBC, ADIFF, ANEU, PBNP, GFR, LAC #### [place] [address] Platelet mean volume (Bld) [Entitic vol] 8.2 fL Normal 6.4-10.5 [facility] Comment on above: Performed By: #### M DW, CMP, CBC, ADIFF, ANEU, PBNP, GFR, LAC #### [place] [address] RBC 4.74 10 6/mcL Normal 4.50-6.00 [facility] Comment on above: Performed By: #### M DW, CMP, CBC, ADIFF, ANEU, PBNP, GFR, LAC #### [place] [id number] WBC 9.4 10 3/mcL Normal 4.5-10.8 [facility] Comment on above: Performed By: #### M DW, CMP, CBC, ADIFF, ANEU, PBNP, GFR, LAC #### [place] [address] CMPon 08-13-2024 Albumin Level 3.9 G/dL Normal 3.2-4.8 [facility] Comment on above: Performed By: #### M DW, CMP, CBC, ADIFF, ANEU, PBNP, GFR, LAC #### [place] [address] Albumin/Globulin [Mass ratio] 1.1 {ratio} Normal 0.9-1.6 [facility] Comment on above: Performed By: #### M DW, CMP, CBC, ADIFF, ANEU, PBNP, GFR, LAC #### [address] [address] ALP [Catalytic activity/Vol] 117 U/L Normal 38-126 [facility] Comment on above: Performed By: #### M DW, CMP, CBC, ADIFF, ANEU, PBNP, GFR, LAC #### [address] [address] ALT [Catalytic activity/Vol] 19 U/L Normal 12-55 [facility] Comment on above: Performed By: #### M DW, CMP, CBC, ADIFF, ANEU, PBNP, GFR, LAC #### [place] [id number] AST [Catalytic activity/Vol] 27 U/L Normal 8-34 [facility] Comment on above: Performed By: #### M DW, CMP, CBC, ADIFF, ANEU, PBNP, GFR, LAC #### [place] [id number] Bili Total 0.40 mg/dL Normal 0.20-1.20 [facility] Comment on above: Result Comment: Use of this assay is not recommended for patients undergoing treatment with eltrombopag due to the potential for falsely elevated results. Performed By: #### M DW, CMP, CBC, ADIFF, ANEU, PBNP, GFR, LAC #### [place] [address] BUN/Creatinine Ratio 14.8 ratio Normal 10.0-22.0 [facility] Comment on above: Performed By: #### M DW, CMP, CBC, ADIFF, ANEU, PBNP, GFR, LAC #### [address] [address] Calcium [Mass/Vol] 9.9 mg/dL Normal 8.7-10.4 [facility] Comment on above: Performed By: #### M DW, CMP, CBC, ADIFF, ANEU, PBNP, GFR, LAC #### [place] [id number] Chloride [Moles/Vol] 107 mmol/L Normal 98-110 [facility] Comment on above: Performed By: #### M DW, CMP, CBC, ADIFF, ANEU, PBNP, GFR, LAC #### [address] [address] CO2 [Moles/Vol] 25 mmol/L Normal 22-32 [facility] Comment on above: Performed By: #### M DW, CMP, CBC, ADIFF, ANEU, PBNP, GFR, LAC #### [address] [address] Creatinine [Mass/Vol] 0.88 mg/dL Normal 0.60-1.40 [facility] Comment on above: Result Comment: Test ing performed on W4 analyzer using enzymatic creatinine methodology. Performed By: #### M DW, CMP, CBC, ADIFF, ANEU, PBNP, GFR, LAC #### [address] [address] Electrolyte Balance 6.0 mEq/L Normal 4.0-15.0 [facility] Comment on above: Performed By: #### M DW, CMP, CBC, ADIFF, ANEU, PBNP, GFR, LAC #### [address] [address] Globulin 3.6 G/dL Normal 1.5-3.8 [facility] Comment on above: Performed By: #### M DW, CMP, CBC, ADIFF, ANEU, PBNP, GFR, LAC #### [address] [address] Glucose [Mass/Vol] 97 mg/dL Normal 70-110 [facility] Comment on above: Performed By: #### M DW, CMP, CBC, ADIFF, ANEU, PBNP, GFR, LAC #### [address] [address] Potassium [Moles/Vol] 4.0 mmol/L Normal 3.5-5.0 [facility] Comment on above: Performed By: #### M DW, CMP, CBC, ADIFF, ANEU, PBNP, GFR, LAC #### [address] [address] Sodium [Moles/Vol] 138 mmol/L Normal 136-145 [facility] Comment on above: Performed By: #### M DW, CMP, CBC, ADIFF, ANEU, PBNP, GFR, LAC #### [facility] [address] [place] [address] Total Protein 7.5 G/dL Normal 5.7-8.2 [facility] Comment on above: Performed By: #### M DW, CMP, CBC, ADIFF, ANEU, PBNP, GFR, LAC #### [facility] [address] [place] [address] Urea nitrogen [Mass/Vol] 13.0 mg/dL Normal 8.0-22.0 [facility] Comment on above: Performed By: #### M DW, CMP, CBC, ADIFF, ANEU, PBNP, GFR, LAC #### [facility] [address] [place] [address] [address] ABD/PELVIS W/ IV CONTRAST ONLYon 08-13-2024 CT ABD/PELVIS W/ IV CONTRAST ONLY ORIGINAL EXAMINATION: CT OF THE ABDOMEN AND PELVIS WITH CONTRAST 08/13/2024 5:15 pm TECHNIQUE: CT of the abdomen and pelvis was performed with the administration of intravenous contrast. Multiplanar reformatted images are provided for review. Automated exposure control, iterative reconstruction, and/or weight based adjustment of the mA/kV was utilized to reduce the radiation dose to as low as reasonably achievable. COMPARISON: CT lumbar spine 08/08/2024, MRI lumbar spine 08/13/2024, CT abdomen-pelvis 08/10/2023 HISTORY: ORDERING SYSTEM PROVIDED HISTORY: Reason for Exam: LOW BACK PAIN AND SWELLING TO SX SITE. LAMINECTOMY IN NOVEMBER. BILATERAL LEG SWELLING abdominal pain FINDINGS: Lower Chest: Visualized lower thorax demonstrates no consolidation or pleural effusion. There are coronary arterial calcifications. Correlation with clinical findings may be useful. Organs: The liver demonstrates no biliary duct dilatation or gross mass. Prior cholecystectomy noted. The common bile duct is grossly normal in caliber. GI/Bowel: Stomach and duodenal sweep demonstrate no acute abnormality. There is mild -moderate diverticulosis of the colon without diverticulitis. Small bowel and colon are normal in caliber. Appendix is normal in caliber without gross wall thickening or inflammatory change. There is a small fat-containing periumbilical hernia. Pelvis: Urinary bladder is within normal limits. No acute abnormality of the prostate. Seminal vesicles are grossly normal in morphology. Peritoneum/Retroperitoneu m: In Aorta is normal in caliber without acute abnormality. Bones/Soft Tissues: Again noted is laminectomy at L3-L5. At the laminectomy bed, there is a small hypodense fluid collection with mildly enhancing margins measuring approximately 1.7 cm AP by 0.8 cm TR by 3.3 cm cc compatible with postop seroma although abscess or CT CSF leak may not be completely excluded. IMPRESSION: 1. Status post laminectomy at L3-L5. At the laminectomy bed, there is a small hypodense fluid collection with mildly enhancing margins measuring approximately 1.7 cm AP by 0.8 cm TR by 3.3 cm CC compatible with postop seroma although abscess or CT CSF leak may not be completely excluded. 2. Coronary arterial calcifications. Correlation with clinical findings may be useful. Interpreted by: Larry Logan Preliminary Report By: Larry Logan Electronically signed By Larry Logan Dictated Date: 08/13/2024 5:40:26 PM Prelim Date: 08/13/2024 5:55:37 PM Sign Date: 08/13/2024 5:55:37 PM Ordering Provider: KARLA BARAHONA [facility] MAIN LABORATORYOrdered By: SYSTEM SYSTEM on 08-13-2024 Albumin BCP dye [Mass/Vol] 3.9 G/dL Normal 3.2 - 4.8 G/dL ADM SS Albumin/Globulin [Mass ratio] 1.1 {ratio} Normal 0.9 - 1.6 ratio ADM SS ALP [Catalytic activity/Vol] 117 U/L Normal 38 - 126 U/L ADM SS ALT No additional P-5'-P [Catalytic activity/Vol] 19 U/L Normal 12 - 55 U/L ADM SS AST [Catalytic activity/Vol] 27 U/L Normal 8 - 34 U/L ADM SS Basophils (Bld) [#/Vol] 0.1 103/mcL Normal 0.0 - 0.3 10^3/mcL Workflow SS Basophils/100 WBC (Bld) 0.6 % Normal 0.0 - 2.5 % Workflow SS Bilirubin [Mass/Vol] 0.40 mg/dL Normal 0.20 - 1.20 mg/dL ADM SS Comment on above: Interpretive Data: U se of this assay is not recommended for patients undergoing treatment with eltrombopag due to the potential for falsely elevated results. Calcium [Mass/Vol] 9.9 mg/dL Normal 8.7 - 10. 4 mg/dL AH ADM SS Chloride [Moles/Vol] 107 mmol/L Normal 98 - 11 0 mEq/L AH ADM SS CO2 [Moles/Vol] 25 mmol/L Normal 22 - 32 mEq/L AH ADM SS Creatinine [Mass/Vol] 0.88 mg/dL Normal 0.60 - 1.40 mg/dL ADM SS Comment on above: Interpretive Data: T esting performed on W4 analyzer using enzymatic creatinine methodology. Electrolyte Balance 6.0 mEq/L Normal 4.0 - 15 .0 mEq/L ADM SS Eosinophils (Bld) [#/Vol] 0.2 103/mcL Normal 0.0 - 0.7 10^3/mcL Workflow SS Eosinophils/100 WBC (Bld) 1.7 % Normal 0.0 - 6.0 % Workflow SS Erythrocyte distribution width (RBC) [Ratio] 14.2 % Normal 11.5 - 15.5 % Workflow SS Estimated Glomerular Filtration Rate 105 ml/min/1.73sqm Invalid Interpretation Code ADM SS Comment on above: Interpretive Data: Stages of Chronic Kidney Disease (CKD) Stage Description eGFR(ml/min/1.73 sq.m.) CKD 1 Normal kidney function or >=90 normal kindney function with possible kidney damage (ex. Proteinuria) CKD 2 Kidney damage with mild loss 60-89 of kidney function CKD 3a Mild to moderate loss of kidney 45-59 function CKD 3b Moderate to severe loss of 30-44 of kindey function CKD 4 Severe loss of kidney function 15-29 CKD 5 Kidney failure <15 Note: (go live 2024) the eGFR calculation was updated to the 2020 CKD-EPI creatinine equation without a race factor to calculate the eGFR results. Globulin 3.6 G/dL Normal 1.5 - 3.8 G/dL ADM SS Glucose [Mass/Vol] 97 mg/dL Normal 70 - 110 mg/dL ADM SS Hematocrit (Bld) [Volume fraction] 42.7 % Normal 40.0 - 52.0 % Workflow SS Hemoglobin (Bld) [Mass/Vol] 14.6 G/dL Normal 13.0 - 17.5 G/dL AH Workflow SS Lactate [Moles/Vol] 1.1 mmol/L Normal 0.5 - 2. 2 mmol/L AH ADM SS Lymphocytes (Bld) [#/Vol] 2.7 103/mcL Normal 0.9 - 4.3 10^3/mcL AH Workflow SS Lymphocytes/100 WBC (Bld) 28.4 % Normal 20.0 - 40.0 % AH Workflow SS MCH (RBC) [Entitic mass] 30.8 pg Normal 27.0 - 33.0 pg AH Workflow SS MCHC 34.2 G/dL Normal 32.0 - 36.0 G/dL AH Workflow SS MCV (RBC) [Entitic vol] 90.0 fL Normal 81.0 - 100.0 fL AH Workflow SS Monocyte distribution width Auto (Bld) [Entitic vol] 17.30 1 Normal 0.00 - 20.00 Workflow SS Comment on above: Result Comment: For ED adult patients suspected of sepsis, MDW<=20.0 does not rule out sepsis or risk of sepsis Monocytes (Bld) [#/Vol] 0.6 103/mcL Normal 0.1 - 1.4 10^3/mcL AH Workflow SS Monocytes/100 WBC (Bld) 5.9 % Normal 2.0 - 13.0 % AH Workflow SS Natriuretic peptide.B prohormone N-Terminal IA [Mass/Vol] pg/mL Normal 0 - 900 pg/mL ADM SS Neutrophils (Bld) [#/Vol] 6.0 103/mcL Normal 2.3 - 8.1 10^3/mcL AH Workflow SS Neutrophils/100 WBC (Bld) 63.4 % Normal 50.0 - 75.0 % AH Workflow SS Platelet mean volume (Bld) [Entitic vol] 8.2 fL Normal 6.4 - 10.5 fL AH Workflow SS Platelets (Bld) [#/Vol] 217 103/mcL Normal 150 - 450 10^3/mcL AH Workflow SS Potassium [Moles/Vol] 4.0 mmol/L Normal 3.5 - 5.0 mEq/L ADM SS Protein [Mass/Vol] 7.5 G/dL Normal 5.7 - 8.2 G/dL ADM SS RBC (Bld) [#/Vol] 4.74 106/mcL Normal 4.50 - 6.0 0 10^6/mcL AH Workflow SS Sodium [Moles/Vol] 138 mmol/L Normal 136 - 145 mEq/L AH ADM SS Urea nitrogen [Mass/Vol] 13.0 mg/dL Normal 8.0 - 22.0 mg/dL AH ADM SS Urea nitrogen/Creatinine [Mass ratio] 14.8 ratio Normal 10.0 - 22.0 ratio AH ADM SS WBC (Bld) [#/Vol] 9.4 103/mcL Normal 4.5 - 10.8 10^3/mcL AH Workflow SS LABORATORYOrdered By: Scott Smith on 08-13-2024 Appearance (U) Clear (08/13/24 1:02 PM) Normal Clear AH Auto Urine SS Bilirubin Ql (U) Negative (08/13/24 1:02 PM) Normal Neg-Trace AH Auto Urine SS Color (U) Yellow (08/13/24 1:02 PM) Normal AH Auto Urine SS Glucose Test strip (U) [Mass/Vol] Negative Normal Negative AH Auto Urine SS Hemoglobin Auto test strip (U) [Mass/Vol] Trace (08/13/24 1:02 PM) Normal Neg-Trace AH Auto Urine SS Ketones Ql (U) Negative Normal Neg-Trace AH Auto Urine SS UA Leuk Est Negative (08/13/24 1:02 PM) Normal Negative AH Auto Urine SS UA Nitrite Negative (08/13/24 1:02 PM) Normal Negative AH Auto Urine SS UA pH 7.0 (08/13/24 1:02 PM) Normal 5.0 - 8.0 AH Auto Urine SS UA Protein Negative Normal Negative AH Auto Urine SS UA Spec Grav <=1.005 *ABN* (08/13/24 1:02 PM) Invalid Interpretation Code 1.006-1.029 AH Auto Urine SS UA Specimen Type Clean Catch (08/13/24 1:02 PM) Normal AH Auto Urine SS UA Urobilinogen 0.2 E.U./dL Normal 0.2-1.0 AH Auto Urine SS LACon 08-13-2024 Lactic Acid Lvl 1.1 mmol/L Normal 0.5-2.2 [facility] Comment on above: Performed By: #### M DW, CMP, CBC, ADIFF, ANEU, PBNP, GFR, LAC #### [place] [address] MRI SPINE LUMBAR W/ + W/O CO NTRASTon 08-13-2024 MRI SPINE LUMBAR W/ + W/O CONTRAST ORIGINAL EXAMINATION: MRI OF THE LUMBAR SPINE WITHOUT AND WITH CONTRAST 08/13/2024 4:29 pm TECHNIQUE: Multiplanar multisequence MRI of the lumbar spine was performed without and with the administration of intravenous contrast. COMPARISON: CT lumbar spine 08/08/2024 HISTORY: ORDERING SYSTEM PROVIDED HISTORY: Reason for Exam: Back pain, swelling FINDINGS: BONES/ALIGNMENT: Lumbar spine vertebral body heights are preserved. Facet joints are in gross anatomic alignment. Again noted are laminectomies at L3-L4, L4-L5, L5-S1. SPINAL CORD: The conus terminates normally. 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 SOFT TISSUES: There is no gross paraspinous mass or fluid collection. There are multiple bilateral renal cysts again noted. At the inferior L3 through superior L5 levels, there is a small fluid collection with enhancing margins at the laminectomy bed, measuring up to 1.5 cm AP by 0.7 cm TR by 3.8 cm cc, compatible with postoperative seroma. However, abscess or CSF leak cannot be totally excluded. There is postoperative dorsal enhancing midline granulation tissue at the L3 through L5 levels. There is edema with mild enhancement of the dorsal subcutaneous fat spanning the L1 through L5 levels which may be reactive, versus cellulitis. L1-L2: There is no significant disc protrusion, spinal canal stenosis or neural foraminal narrowing. L2-L3: There is no significant disc protrusion, spinal canal stenosis or neural foraminal narrowing. L3-L4: There is mild-moderate facet hypertrophy. There is laminectomy. There is mild epidural soft tissue enhancement at the posterior spinal canal with minimal mass effect of the thecal sac. There is mild disc bulge with endplate osteophytes and bilateral foraminal extension. There is no central canal stenosis. Mild bilateral neuroforaminal stenosis is present. L4-L5: There is moderate facet hypertrophy. There is minimal grade 1 retrolisthesis of L4. there is laminectomy. There is disc bulge with endplate osteophytes and bilateral foraminal extension. There is mild disc bulge and small posterior annular tear. There is mild central canal stenosis. There is enhancing epidural soft tissue at the laminectomy bed, extending to bilateral subarticular zones, circumscribing bilateral traversing L5 nerve roots, likely reactive. There are small enhancing foci of the posterior disc compatible with postoperative/reactive change. There is no evidence of abiola discitis or osteomyelitis. There is mild central canal stenosis. Moderate bilateral neural foraminal stenosis is present. L5-S1: There is moderate ligamentum flavum and facet hypertrophy. There is mild grade 1 retrolisthesis of L5. There is laminectomy. There is mild enhancement of epidural soft tissues at the laminectomy bed. There is disc bulge with endplate osteophytes and bilateral foraminal extension. There is moderate central canal stenosis. Moderate bilateral neural foraminal stenosis is present. IMPRESSION: 1. Laminectomies at the L3-L4, L4-L5, L5-S1 levels. Small fluid collection at the laminectomy bed compatible with postoperative seroma. However, abscess or CSF leak cannot be totally excluded. There is edema with mild enhancement of the dorsal subcutaneous fat spanning the L1 through L5 levels which may be reactive, versus cellulitis. 2. 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 3. Central canal and neural foraminal stenosis at the L3-L4, L4-L5, and L5-S1 levels. Interpreted by: Larry Logan Preliminary Report By: Larry Logan Electronically signed By Larry Logan Dictated Date: 08/13/2024 5:20:51 PM Prelim Date: 08/13/2024 5:40:12 PM Sign Date: 08/13/2024 5:40:12 PM Ordering Provider: KARLA BARAHONA Normal [facility] PBNPon 08-13-2024 N-Terminal proBNP <35 Normal 0-900 [facility] Comment on above: Performed By: #### M DW, CMP, CBC, ADIFF, ANEU, PBNP, GFR, LAC ####[place] [id number] [place] [address] UAon 08-13-2024 Color (U) Yellow Normal [facility] Comment on above: Performed By: #### U A ####[place] [id number] [place] [address] Glucose (U) [Mass/Vol] Negative Normal Negative [facility] Comment on above: Performed By: #### U A ####[place] [id number] [place] [address] Ketones Ql (U) Negative Normal Neg-Trace [facility] Comment on above: Performed By: #### U A ####[place] [address] UA Appear Clear Normal Clear [facility] Comment on above: Performed By: #### U A ####[place] [address] UA Blood Trace Normal Neg-Trace [facility] Comment on above: Performed By: #### U A ####[place] [address] UA Leuk Est Negative Normal Negative [facility] Comment on above: Performed By: #### U A ####[place] [address] UA Nitrite Negative Normal Negative [facility] Comment on above: Performed By: #### U A ####[place] [address] UA pH 7.0 Normal 5.0 - 8.0 [facility] Comment on above: Performed By: #### U A ####[place] [address] UA Protein Negative Normal Negative [facility] Comment on above: Performed By: #### U A ####[place] [address] UA Spec Grav <=1.005 Abnormal 1.006-1.029 [facility] Comment on above: Performed By: #### U A ####[place] [address] UA Specimen Type Clean Catch Normal [facility] Comment on above: Performed By: #### U A ####[place] [address] UA Urobilinogen 0.2 E.U./dL Normal 0.2-1.0 [facility] Comment on above: Performed By: #### U A ####[place] [address] Urobilinogen (U) [Mass/Vol] Negative Normal Neg-Trace [facility] Comment on above: Performed By: #### U A ####[address] [address] .Auto Diffon 08-08-2024 Basophil, Absolute 0.1 10 3/mcL Normal 0.0-0.2 [facility] Comment on above: Performed By: #### M DW, ADIFF, CBC, ANEU, BMP, GFR #### [address] [address] Basophils/100 WBC (Bld) 0.8 % Normal 0.0-2.5 [facility] Comment on above: Performed By: #### M DW, ADIFF, CBC, ANEU, BMP, GFR #### [address] [address] Eosinophil, Absolute 0.2 10 3/mcL Normal 0.0-0.7 [facility] Comment on above: Performed By: #### M DW, ADIFF, CBC, ANEU, BMP, GFR #### [address] [address] Eosinophils/100 WBC (Bld) 2.1 % Normal 0.0-7.0 [facility] Comment on above: Performed By: #### M DW, ADIFF, CBC, ANEU, BMP, GFR #### [address] [address] Lymphocyte, Absolute 2.4 10 3/mcL Normal 0.9-4.3 [facility] Comment on above: Performed By: #### M DW, ADIFF, CBC, ANEU, BMP, GFR #### [address] [address] Lymphocytes/100 WBC (Bld) 33.1 % Normal 20.0-40.0 [facility] Comment on above: Performed By: #### M DW, ADIFF, CBC, ANEU, BMP, GFR #### [address] [address] Monocyte, Absolute 0.5 10 3/mcL Normal 0.1-1.4 [facility] Comment on above: Performed By: #### M DW, ADIFF, CBC, ANEU, BMP, GFR #### [place] [address] [place], [place] [address] Monocytes/100 WBC (Bld) 6.9 % Normal 2.0-13.0 [facility] Comment on above: Performed By: #### M DW, ADIFF, CBC, ANEU, BMP, GFR #### [place] [address] [place], [place] [address] Neutrophils/100 WBC (Bld) 57.1 % Normal 50.0-75.0 [facility] Comment on above: Performed By: #### M DW, ADIFF, CBC, ANEU, BMP, GFR #### [address] [address] .GFRon 08-08-2024 Estimated Glomerular Filtration Rate 81 ml/min/1.73sqm Normal [facility] Comment on above: Result Comment: Stages of Chronic Kidney Disease (CKD) Stage Description eGFR(ml/min/1.73 sq.m.) CKD 1 Normal kidney function or >=90 normal kindney function with possible kidney damage (ex. Proteinuria) CKD 2 Kidney damage with mild loss 60-89 of kidney function CKD 3a Mild to moderate loss of kidney 45-59 function CKD 3b Moderate to severe loss of 30-44 of kindey function CKD 4 Severe loss of kidney function 15-29 CKD 5 Kidney failure <15 Note: (go live 2024) the eGFR calculation was updated to the 2020 CKD-EPI creatinine equation without a race factor to calculate the eGFR results. Performed By: #### M DW, ADIFF, CBC, ANEU, BMP, GFR #### [address] [address] .MDWon 08-08-2024 Monocyte Distribution Width 17.49 Normal 0.00-20.00 [facility] Comment on above: Result Comment: For ED adult patients suspected of sepsis, MDW<=20.0 does not rule out sepsis or risk of sepsis Performed By: #### M DW, ADIFF, CBC, ANEU, BMP, GFR #### [address] [address] .NEUABSon 02-10-2025 Neutrophil, Absolute 4.2 10 3/mcL Normal 2.3-8.1 [facility] Comment on above: Performed By: #### M DW, ADIFF, CBC, ANEU, BMP, GFR #### [address] [address] BMPon 08-08-2024 BUN/Creatinine Ratio 14 ratio Normal 7-27 [facility] Comment on above: Performed By: #### M DW, ADIFF, CBC, ANEU, BMP, GFR #### [address] [address] Calcium [Mass/Vol] 9.0 mg/dL Normal 8.4-10.2 [facility] Comment on above: Performed By: #### M DW, ADIFF, CBC, ANEU, BMP, GFR #### [address] [address] Chloride [Moles/Vol] 104 mmol/L Normal 98-107 [facility] Comment on above: Performed By: #### M DW, ADIFF, CBC, ANEU, BMP, GFR #### [address] [address] CO2 [Moles/Vol] 28 mmol/L Normal 22-29 [facility] Comment on above: Performed By: #### M DW, ADIFF, CBC, ANEU, BMP, GFR #### [address] [address] Creatinine [Mass/Vol] 1.11 mg/dL Normal 0.70-1.30 [facility] Comment on above: Result Comment: Test ing performed on Siemens Dimension EXL analyzer using a modified kinetic Collins technique. Performed By: #### M DW, ADIFF, CBC, ANEU, BMP, GFR #### [address] [address] Electrolyte Balance 7.0 mEq/L Normal 4.0-15.0 [facility] Comment on above: Performed By: #### M DW, ADIFF, CBC, ANEU, BMP, GFR #### [address] [address] Glucose [Mass/Vol] 87 mg/dL Normal 70-105 [facility] Comment on above: Performed By: #### M DW, ADIFF, CBC, ANEU, BMP, GFR #### [address] [address] Potassium [Moles/Vol] 4.1 mmol/L Normal 3.5-5.1 [facility] Comment on above: Performed By: #### M DW, ADIFF, CBC, ANEU, BMP, GFR #### [address] [address] Sodium [Moles/Vol] 139 mmol/L Normal 136-145 [facility] Comment on above: Performed By: #### M DW, ADIFF, CBC, ANEU, BMP, GFR #### [address] [address] Urea nitrogen [Mass/Vol] 16 mg/dL Normal 7-18 [facility] Comment on above: Performed By: #### M DW, ADIFF, CBC, ANEU, BMP, GFR #### [address] [address] CBCon 08-08-2024 Erythrocyte distribution width (RBC) [Ratio] 14.4 % Normal 11.5-15.5 [facility] Comment on above: Performed By: #### M DW, ADIFF, CBC, ANEU, BMP, GFR #### [address] [address] Hematocrit (Bld) [Volume fraction] 42.6 % Normal 40.0-52.0 [facility] [facility] Comment on above: Performed By: #### M DW, ADIFF, CBC, ANEU, BMP, GFR #### [address] [address] Hgb 14.6 G/dL Normal 13.0-17.5 [facility] Comment on above: Performed By: #### M DW, ADIFF, CBC, ANEU, BMP, GFR #### [address] [address] MCH (RBC) [Entitic mass] 31.1 pg Normal 27.0-33.0 [facility] Comment on above: Performed By: #### M DW, ADIFF, CBC, ANEU, BMP, GFR #### [address] [address] MCHC 34.3 G/dL Normal 32.0-36.0 [facility] Comment on above: Performed By: #### M DW, ADIFF, CBC, ANEU, BMP, GFR #### [address] [address] MCV (RBC) [Entitic vol] 90.6 fL Normal 81.0-100.0 [facility] Comment on above: Performed By: #### M DW, ADIFF, CBC, ANEU, BMP, GFR #### [address] [address] Platelet 196 10 3/mcL Normal 150-450 [facility] Comment on above: Performed By: #### M DW, ADIFF, CBC, ANEU, BMP, GFR #### [address] [address] Platelet mean volume (Bld) [Entitic vol] 8.1 fL Normal 6.4-10.5 [facility] Comment on above: Performed By: #### M DW, ADIFF, CBC, ANEU, BMP, GFR #### [address] [address] RBC 4.70 10 6/mcL Normal 4.50-6.00 [facility] Comment on above: Performed By: #### M DW, ADIFF, CBC, ANEU, BMP, GFR #### [address] [address] WBC 7.3 10 3/mcL Normal 4.5-10.8 [facility] Comment on above: Performed By: #### M DW, ADIFF, CBC, ANEU, BMP, GFR #### [address] [address] [address] SPINE LUMBAR W/O CONTRAST on 08-08-2024 CT SPINE LUMBAR W/O CONTRAST ORIGINAL HISTORY: CHF leak, swelling around the incision COMPARISON: 28 December 2023 TECHNIQUE: Axial non-contrast CT of the lumbar spine, with sagittal and coronal reconstruction. This exam was performed according to our departmental dose optimization program, and includes the following measures where applicable: automated exposure control, adjustment of the mAs and/or kVp according to patient size and/or exam, and an iterative reconstruction algorithm. FINDINGS: There are 5 lumbar type vertebral bodies counting from the last visible rib. Alignment is within normal limits. There is an L4-L5 laminectomy. There is a small fluid collection in the laminectomy bed, not well distinguished in the absence of intravenous contrast, about 14 mm in maximum diameter. There is superficial subcutaneous fluid, incompletely visualized here. The individual vertebral bodies are intact. There is mild scattered disc space narrowing. IMPRESSION: Small fluid collection in the laminectomy, about 14 mm in thickness, possibly pseudomeningocele. Subcutaneous fluid is incompletely visualized here, and CSF leak is not excluded. Interpreted by: Kristen Bowden MD Preliminary Report By: Kristen Bowden MD Electronically signed By Kristen Bowden MD Dictated Date: 08/08/2024 3:29:08 PM Prelim Date: 08/08/2024 3:38:23 PM Sign Date: 08/08/2024 3:38:23 PM Ordering Provider: ERICA Zayas [facility] LABORATORYOrdered By: SYSTEM SYSTEM on 08-08-2024 Basophils (Bld) [#/Vol] 0.1 103/mcL Normal 0.0 - 0.2 10^3/mcL AO Workflow SS Basophils/100 WBC (Bld) 0.8 % Normal 0.0 - 2.5 % AO Workflow SS Calcium [Mass/Vol] 9.0 mg/dL Normal 8.4 - 10. 2 mg/dL AO ADM SS Chloride [Moles/Vol] 104 mmol/L Normal 98 - 10 7 mmol/L AO ADM SS CO2 [Moles/Vol] 28 mmol/L Normal 22 - 29 mmol/L AO ADM SS Creatinine [Mass/Vol] 1.11 mg/dL Normal 0.70 - 1.30 mg/dL AO ADM SS Comment on above: Interpretive Data: T esting performed on Siemens Dimension EXL analyzer using a modified kinetic Collins technique. Electrolyte Balance 7.0 mEq/L Normal 4.0 - 15 .0 mEq/L AO ADM SS Eosinophil, Absolute 0.2 103/mcL Normal 0.0 - 0 .7 10^3/mcL AO Workflow SS Eosinophils/100 WBC (Bld) 2.1 % Normal 0.0 - 7.0 % AO Workflow SS Erythrocyte distribution width (RBC) [Ratio] 14.4 % Normal 11.5 - 15.5 % AO Workflow SS Estimated Glomerular Filtration Rate 81 ml/min/1.73sqm Invalid Interpretation Code AO Chemistry S Comment on above: Interpretive Data: Stages of Chronic Kidney Disease (CKD) Stage Description eGFR(ml/min/1.73 sq.m.) CKD 1 Normal kidney function or >=90 normal kindney function with possible kidney damage (ex. Proteinuria) CKD 2 Kidney damage with mild loss 60-89 of kidney function CKD 3a Mild to moderate loss of kidney 45-59 function CKD 3b Moderate to severe loss of 30-44 of kindey function CKD 4 Severe loss of kidney function 15-29 CKD 5 Kidney failure <15 Note: (go live 2024) the eGFR calculation was updated to the 2020 CKD-EPI creatinine equation without a race factor to calculate the eGFR results. Glucose [Mass/Vol] 87 mg/dL Normal 70 - 105 mg/dL AO ADM SS Hematocrit (Bld) [Volume fraction] 42.6 % Normal 40.0 - 52.0 % AO Workflow SS Hemoglobin (Bld) [Mass/Vol] 14.6 G/dL Normal 13.0 - 17.5 G/dL AO Workflow SS Lymphocytes (Bld) [#/Vol] 2.4 103/mcL Normal 0.9 - 4.3 10^3/mcL AO Workflow SS Lymphocytes/100 WBC (Bld) 33.1 % Normal 20.0 - 40.0 % AO Workflow SS MCH (RBC) [Entitic mass] 31.1 pg Normal 27.0 - 33.0 pg AO Workflow SS MCHC 34.3 G/dL Normal 32.0 - 36.0 G/dL AO Workflow SS MCV (RBC) [Entitic vol] 90.6 fL Normal 81.0 - 100.0 fL AO Workflow SS Monocyte distribution width Auto (Bld) [Entitic vol] 17.49 1 Normal 0.00 - 20.00 AO Workflow SS Comment on above: Result Comment: For ED adult patients suspected of sepsis, MDW<=20.0 does not rule out sepsis or risk of sepsis Monocytes (Bld) [#/Vol] 0.5 103/mcL Normal 0.1 - 1.4 10^3/mcL AO Workflow SS Monocytes/100 WBC (Bld) 6.9 % Normal 2.0 - 13.0 % AO Workflow SS Neutrophils (Bld) [#/Vol] 4.2 103/mcL Normal 2.3 - 8.1 10^3/mcL AO Workflow SS Neutrophils/100 WBC (Bld) 57.1 % Normal 50.0 - 75.0 % AO Workflow SS Platelet mean volume (Bld) [Entitic vol] 8.1 fL Normal 6.4 - 10.5 fL AO Workflow SS Platelets (Bld) [#/Vol] 196 103/mcL Normal 150 - 450 10^3/mcL AO Workflow SS Potassium [Moles/Vol] 4.1 mmol/L Normal 3.5 - 5.1 mmol/L AO ADM SS RBC (Bld) [#/Vol] 4.70 106/mcL Normal 4.50 - 6.0 0 10^6/mcL AO Workflow SS Sodium [Moles/Vol] 139 mmol/L Normal 136 - 145 mmol/L AO ADM SS Urea nitrogen [Mass/Vol] 16 mg/dL Normal 7 - 18 mg/dL AO ADM SS Urea nitrogen/Creatinine [Mass ratio] 14 ratio Normal 7 - 27 ratio AO ADM SS WBC (Bld) [#/Vol] 7.3 103/mcL Normal 4.5 - 10.8 10^3/mcL AO Workflow SS US RENALon 04-15-2024 US RENAL ORIGINAL EXAMINATION: ULTRASOUND OF THE KIDNEYS AND BLADDER 04/15/2024 12:06 pm COMPARISON: CT abdomen/pelvis 08/10/2023, renal ultrasound 08/26/2023 HISTORY: ORDERING SYSTEM PROVIDED HISTORY: Reason for Exam: RENAL CYST All images are recorded and archived. FINDINGS: The right kidney measures 10.2 cm in length and the left kidney measures 9.7 cm in length. No pelvicaliectasis. Normal cortical thickness and echogenicity bilaterally. Redemonstration of 9 mm nonobstructive right renal calculus. Well-defined hyperdense lateral right midpole renal lesion up to 8 mm, similar in appearance to the prior ultrasound. Similar right superior pole renal cyst up to 1.4 cm. Redemonstration of nonobstructive left renal calculus up to 8 mm. Redemonstration of left renal cysts, most notably with a 2.9 cm left renal sinus cyst, 2.7 cm on the prior CT on my re-measurement. The urinary bladder is mildly under distended; within the confines, unremarkable in appearance. No significant postvoid residual. IMPRESSION: Redemonstration of nonobstructive right nephrolithiasis. Similar hyperdense right mid to lower pole renal lesion in keeping with a hyperdense cyst or less likely angiomyolipoma. Redemonstration of bilateral renal cysts. I have personally reviewed the images of this examination and agree with the resident's findings and interpretation. Interpreted by: Yogi Durant DO Preliminary Report By: Guanakito Nicole Electronically signed By Yogi Durant DO Dictated Date: 04/15/2024 1:40:42 PM Prelim Date: 04/15/2024 1:59:02 PM Sign Date: 04/15/2024 1:59:02 PM Ordering Provider: NATY Zayas [facility] .Auto Diffon 03-23-2024 Basophil, Absolute 0.0 10 3/mcL Normal 0.0-0.3 [facility] Comment on above: Performed By: #### A DIFF, BMP, MDW, CBC, TROPHS, PBNP, GFR, ANEU ####[address] [address] Basophils/100 WBC (Bld) 0.3 % Normal 0.0-2.5 [facility] Comment on above: Performed By: #### A DIFF, BMP, MDW, CBC, TROPHS, PBNP, GFR, ANEU ####[address] [address] Eosinophil, Absolute 0.1 10 3/mcL Normal 0.0-0.7 [facility] Comment on above: Performed By: #### A DIFF, BMP, MDW, CBC, TROPHS, PBNP, GFR, ANEU ####[place] [id number] [place] [address] Eosinophils/100 WBC (Bld) 1.5 % Normal 0.0-6.0 [facility] Comment on above: Performed By: #### A DIFF, BMP, MDW, CBC, TROPHS, PBNP, GFR, ANEU ####[address] [address] Lymphocyte, Absolute 2.6 10 3/mcL Normal 0.9-4.3 [facility] Comment on above: Performed By: #### A DIFF, BMP, MDW, CBC, TROPHS, PBNP, GFR, ANEU ####[address] [address] Lymphocytes/100 WBC (Bld) 25.5 % Normal 20.0-40.0 [facility] Comment on above: Performed By: #### A DIFF, BMP, MDW, CBC, TROPHS, PBNP, GFR, ANEU ####[address] [address] Monocyte, Absolute 0.6 10 3/mcL Normal 0.1-1.4 [facility] Comment on above: Performed By: #### A DIFF, BMP, MDW, CBC, TROPHS, PBNP, GFR, ANEU ####[address] [address] Monocytes/100 WBC (Bld) 6.2 % Normal 2.0-13.0 [facility] Comment on above: Performed By: #### A DIFF, BMP, MDW, CBC, TROPHS, PBNP, GFR, ANEU ####[address] [address] Neutrophils/100 WBC (Bld) 66.5 % Normal 50.0-75.0 [facility] Comment on above: Performed By: #### A DIFF, BMP, MDW, CBC, TROPHS, PBNP, GFR, ANEU ####[address] [address] .GFRon 03-23-2024 GFR Non- >60 Normal [facility] Comment on above: Result Comment: GFR Population mean for , Non- Americans Ages 20-29 = 116 mL/min/1.73 sq.m. Ages 30-39 = 107 mL/min/1.73 sq.m. Ages 40-49 = 99 mL/min/1.73 sq.m. Ages 50-59 = 93 mL/min/1.73 sq.m. Ages 60-69 = 85 mL/min/1.73 sq.m. Ages 70+ = 75 mL/min/1.73 sq.m. Chronic Kidney Disease: Less than 60 mL/min/1.73 square meters End Stage Renal Disease: Less than 15 mL/min/1.73 square meters Performed By: #### A DIFF, BMP, MDW, CBC, TROPHS, PBNP, GFR, ANEU ####[place] [address] GFR >60 Normal [facility] Comment on above: Result Comment: GFR Population mean for , Non- Americans Ages 20-29 = 116 mL/min/1.73 sq.m. Ages 30-39 = 107 mL/min/1.73 sq.m. Ages 40-49 = 99 mL/min/1.73 sq.m. Ages 50-59 = 93 mL/min/1.73 sq.m. Ages 60-69 = 85 mL/min/1.73 sq.m. Ages 70+ = 75 mL/min/1.73 sq.m. Chronic Kidney Disease: Less than 60 mL/min/1.73 square meters End Stage Renal Disease: Less than 15 mL/min/1.73 square meters Performed By: #### A DIFF, BMP, MDW, CBC, TROPHS, PBNP, GFR, ANEU ####[place] [address] .MDWon 03-23-2024 Monocyte Distribution Width 19.95 Normal 0.00-20.00 [facility] Comment on above: Result Comment: For ED adult patients suspected of sepsis, MDW<=20.0 does not rule out sepsis or risk of sepsis Performed By: #### A DIFF, BMP, MDW, CBC, TROPHS, PBNP, GFR, ANEU ####[place] [address] .NEUABSon 03-23-2024 Neutrophil, Absolute 6.8 10 3/mcL Normal 2.3-8.1 [facility] Comment on above: Performed By: #### A DIFF, BMP, MDW, CBC, TROPHS, PBNP, GFR, ANEU ####[place] [address] BMPon 03-23-2024 BUN/Creatinine Ratio 9.3 ratio Low 10.0-22.0 [facility] Comment on above: Performed By: #### A DIFF, BMP, MDW, CBC, TROPHS, PBNP, GFR, ANEU ####[address] [address] Calcium [Mass/Vol] 9.7 mg/dL Normal 8.7-10.4 [facility] Comment on above: Performed By: #### A DIFF, BMP, MDW, CBC, TROPHS, PBNP, GFR, ANEU ####[address] [address] Chloride [Moles/Vol] 108 mmol/L Normal 98-110 [facility] Comment on above: Performed By: #### A DIFF, BMP, MDW, CBC, TROPHS, PBNP, GFR, ANEU ####[place] [id number] CO2 [Moles/Vol] 26 mmol/L Normal 22-32 [facility] Comment on above: Performed By: #### A DIFF, BMP, MDW, CBC, TROPHS, PBNP, GFR, ANEU ####[place] [id number] Creatinine [Mass/Vol] 0.97 mg/dL Normal 0.60-1.40 [facility] Comment on above: Result Comment: Test ing performed on W4 analyzer using enzymatic creatinine methodology. Performed By: #### A DIFF, BMP, MDW, CBC, TROPHS, PBNP, GFR, ANEU ####[place] [address] Electrolyte Balance 3.0 mEq/L Low 4.0-15.0 [facility] Comment on above: Performed By: #### A DIFF, BMP, MDW, CBC, TROPHS, PBNP, GFR, ANEU ####[address] [address] Glucose [Mass/Vol] 102 mg/dL Normal 70-110 [facility] Comment on above: Performed By: #### A DIFF, BMP, MDW, CBC, TROPHS, PBNP, GFR, ANEU ####[place] [address] Potassium [Moles/Vol] 4.1 mmol/L Normal 3.5-5.0 [facility] Comment on above: Performed By: #### A DIFF, BMP, MDW, CBC, TROPHS, PBNP, GFR, ANEU ####[place] [address] Sodium [Moles/Vol] 137 mmol/L Normal 136-145 [facility] Comment on above: Performed By: #### A DIFF, BMP, MDW, CBC, TROPHS, PBNP, GFR, ANEU ####[place] [address] Urea nitrogen [Mass/Vol] 9.0 mg/dL Normal 8.0-22.0 [facility] Comment on above: Performed By: #### A DIFF, BMP, MDW, CBC, TROPHS, PBNP, GFR, ANEU ####[place] [address] CBCon 03-23-2024 Erythrocyte distribution width (RBC) [Ratio] 15.0 % Normal 11.5-15.5 [facility] Comment on above: Performed By: #### A DIFF, BMP, MDW, CBC, TROPHS, PBNP, GFR, ANEU ####[place] [address] Hematocrit (Bld) [Volume fraction] 42.2 % Normal 40.0-52.0 [facility] Comment on above: Performed By: #### A DIFF, BMP, MDW, CBC, TROPHS, PBNP, GFR, ANEU ####[place] [address] Hgb 14.6 G/dL Normal 13.0-17.5 [facility] Comment on above: Performed By: #### A DIFF, BMP, MDW, CBC, TROPHS, PBNP, GFR, ANEU ####[place] [address] MCH (RBC) [Entitic mass] 31.3 pg Normal 27.0-33.0 [facility] Comment on above: Performed By: #### A DIFF, BMP, MDW, CBC, TROPHS, PBNP, GFR, ANEU ####[place] [address] MCHC 34.7 G/dL Normal 32.0-36.0 [facility] Comment on above: Performed By: #### A DIFF, BMP, MDW, CBC, TROPHS, PBNP, GFR, ANEU ####[place] [address] MCV (RBC) [Entitic vol] 90.0 fL Normal 81.0-100.0 [facility] Comment on above: Performed By: #### A DIFF, BMP, MDW, CBC, TROPHS, PBNP, GFR, ANEU ####[place] [address] Platelet 213 10 3/mcL Normal 150-450 [facility] Comment on above: Performed By: #### A DIFF, BMP, MDW, CBC, TROPHS, PBNP, GFR, ANEU ####[place] [address] Platelet mean volume (Bld) [Entitic vol] 8.2 fL Normal 6.4-10.5 [facility] Comment on above: Performed By: #### A DIFF, BMP, MDW, CBC, TROPHS, PBNP, GFR, ANEU ####[place] [address] RBC 4.69 10 6/mcL Normal 4.50-6.00 [facility] Comment on above: Performed By: #### A DIFF, BMP, MDW, CBC, TROPHS, PBNP, GFR, ANEU ####[place] [address] WBC 10.2 10 3/mcL Normal 4.5-10.8 [facility] Comment on above: Performed By: #### A DIFF, BMP, MDW, CBC, TROPHS, PBNP, GFR, ANEU ####[place] [address] LABORATORYOrdered By: SYSTEM SYSTEM on 03-23-2024 Basophils (Bld) [#/Vol] 0.0 103/mcL Normal 0.0 - 0.3 10^3/mcL Workflow SS Basophils/100 WBC (Bld) 0.3 % Normal 0.0 - 2.5 % Workflow SS Calcium [Mass/Vol] 9.7 mg/dL Normal 8.7 - 10. 4 mg/dL ADM SS Chloride [Moles/Vol] 108 mmol/L Normal 98 - 11 0 mEq/L ADM SS CO2 [Moles/Vol] 26 mmol/L Normal 22 - 32 mEq/L ADM SS Creatinine [Mass/Vol] 0.97 mg/dL Normal 0.60 - 1.40 mg/dL ADM SS Comment on above: Interpretive Data: T esting performed on W4 analyzer using enzymatic creatinine methodology. Electrolyte Balance 3.0 mEq/L Low 4.0 - 15 .0 mEq/L ADM SS Eosinophils (Bld) [#/Vol] 0.1 103/mcL Normal 0.0 - 0.7 10^3/mcL Workflow SS Eosinophils/100 WBC (Bld) 1.5 % Normal 0.0 - 6.0 % Workflow SS Erythrocyte distribution width (RBC) [Ratio] 15.0 % Normal 11.5 - 15.5 % Workflow SS GFR/1.73 sq M.predicted among blacks MDRD (S/P/Bld) [Vol rate/Area] ml/min/1.73sqm Invalid Interpretation Code ADM SS Comment on above: Interpretive Data: GFR Population mean for , Non- Americans Ages 20-29 = 116 mL/min/1.73 sq.m. Ages 30-39 = 107 mL/min/1.73 sq.m. Ages 40-49 = 99 mL/min/1.73 sq.m. Ages 50-59 = 93 mL/min/1.73 sq.m. Ages 60-69 = 85 mL/min/1.73 sq.m. Ages 70+ = 75 mL/min/1.73 sq.m. Chronic Kidney Disease: Less than 60 mL/min/1.73 square meters End Stage Renal Disease: Less than 15 mL/min/1.73 square meters GFR/1.73 sq M.predicted among non-blacks MDRD (S/P/Bld) [Vol rate/Area] ml/min/1.73sqm Invalid Interpretation Code ADM SS Comment on above: Interpretive Data: GFR Population mean for , Non- Americans Ages 20-29 = 116 mL/min/1.73 sq.m. Ages 30-39 = 107 mL/min/1.73 sq.m. Ages 40-49 = 99 mL/min/1.73 sq.m. Ages 50-59 = 93 mL/min/1.73 sq.m. Ages 60-69 = 85 mL/min/1.73 sq.m. Ages 70+ = 75 mL/min/1.73 sq.m. Chronic Kidney Disease: Less than 60 mL/min/1.73 square meters End Stage Renal Disease: Less than 15 mL/min/1.73 square meters Glucose [Mass/Vol] 102 mg/dL Normal 70 - 110 mg/dL ADM SS Hematocrit (Bld) [Volume fraction] 42.2 % Normal 40.0 - 52.0 % Workflow SS Hemoglobin (Bld) [Mass/Vol] 14.6 G/dL Normal 13.0 - 17.5 G/dL AH Workflow SS Lymphocytes (Bld) [#/Vol] 2.6 103/mcL Normal 0.9 - 4.3 10^3/mcL AH Workflow SS Lymphocytes/100 WBC (Bld) 25.5 % Normal 20.0 - 40.0 % AH Workflow SS MCH (RBC) [Entitic mass] 31.3 pg Normal 27.0 - 33.0 pg AH Workflow SS MCHC 34.7 G/dL Normal 32.0 - 36.0 G/dL AH Workflow SS MCV (RBC) [Entitic vol] 90.0 fL Normal 81.0 - 100.0 fL Workflow SS Monocyte distribution width Auto (Bld) [Entitic vol] 19.95 1 Normal 0.00 - 20.00 Workflow SS Comment on above: Result Comment: For ED adult patients suspected of sepsis, MDW<=20.0 does not rule out sepsis or risk of sepsis Monocytes (Bld) [#/Vol] 0.6 103/mcL Normal 0.1 - 1.4 10^3/mcL Workflow SS Monocytes/100 WBC (Bld) 6.2 % Normal 2.0 - 13.0 % Workflow SS Natriuretic peptide.B prohormone N-Terminal IA [Mass/Vol] pg/mL Normal 0 - 900 pg/mL ADM SS Neutrophils (Bld) [#/Vol] 6.8 103/mcL Normal 2.3 - 8.1 10^3/mcL Workflow SS Neutrophils/100 WBC (Bld) 66.5 % Normal 50.0 - 75.0 % Workflow SS Platelet mean volume (Bld) [Entitic vol] 8.2 fL Normal 6.4 - 10.5 fL Workflow SS Platelets (Bld) [#/Vol] 213 103/mcL Normal 150 - 450 10^3/mcL Workflow SS Potassium [Moles/Vol] 4.1 mmol/L Normal 3.5 - 5.0 mEq/L ADM SS RBC (Bld) [#/Vol] 4.69 106/mcL Normal 4.50 - 6.0 0 10^6/mcL Workflow SS Sodium [Moles/Vol] 137 mmol/L Normal 136 - 145 mEq/L ON LICENSE OF [facility] SS Troponin I.cardiac DL <= 0.01 ng/mL [Mass/Vol] ng/L Normal 0 - 54 ng/L [facility] Comment on above: Interpretive Data: High Sensitive Troponin I Reference Ranges: Female: 0-34 ng/L Male: 0-54 ng/L Testing performed on [employer] IM analyzer using direct chemiluminescent technology. Urea nitrogen [Mass/Vol] 9.0 mg/dL Normal 8.0 - 22.0 mg/dL ADM Urea nitrogen/Creatinine [Mass ratio] 9.3 ratio Low 10.0 - 22.0 ratio [facility] WBC (Bld) [#/Vol] 10.2 103/mcL Normal 4.5 - 10.8 10^3/mcL [facility] SS PBNPon 03-23-2024 N-Terminal proBNP <35 Normal 0-900 [facility] Comment on above: Performed By: #### A DIFF, LATANYA, W, CBC, TROPHS, PBNP, GFR, ANEU ####[place] [address] TROPHSon 03-23-2024 High Sensitivity Troponin I <3 Normal 0-54 [facility] Comment on above: Result Comment: High Sensitive Troponin I Reference Ranges: Female: 0-34 ng/L Male: 0-54 ng/L Testing performed on [employer] IM analyzer using direct chemiluminescent technology. Performed By: #### A TAMMY, LATANYA, W, CBC, TROPHS, PBNP, GFR, ANEU ####[place] [id number] [address] [place], [place] [id number] XR CHEST 1 VIEWon 03-23-2024 XR CHEST 1 VIEW ORIGINAL EXAMINATION: ONE XRAY VIEW OF THE CHEST 03/23/2024 5:49 pm COMPARISON: Radiograph of the chest November 27, 2023 HISTORY: ORDERING SYSTEM PROVIDED HISTORY: Reason for Exam: chest pain FINDINGS: Cardiomediastinal silhouette is unchanged in size. Right costophrenic angle is sharp. Left costophrenic angle is unchanged. No radiographic pneumothorax. Bilateral lower lung field and bibasilar streaky opacities and atelectasis. Osseous structures grossly unchanged. IMPRESSION: Bilateral lower lung field and bibasilar streaky opacities and atelectasis. Interpreted by: Devyn Pedraza Preliminary Report By: Devyn Pedraza Electronically signed By Devyn Pedraza Dictated Date: 03/23/2024 5:50:09 PM Prelim Date: 03/23/2024 5:51:25 PM Sign Date: 03/23/2024 5:51:25 PM Ordering Provider: BROOKLYNN ROSA [facility] MAIN MRI SPINE LUMBAR W/ + W/O CO NTRASTon 02-24-2024 MRI SPINE LUMBAR W/ + W/O CONTRAST ORIGINAL EXAMINATION: MRI OF THE LUMBAR SPINE WITHOUT AND WITH CONTRAST 02/24/2024 9:42 am TECHNIQUE: Multiplanar multisequence MRI of the lumbar spine was performed without and with the administration of intravenous contrast. COMPARISON: None. HISTORY: ORDERING SYSTEM PROVIDED HISTORY: Reason for Exam: 2 back surgeries in November. Now with increased swelling at incision site. Also has worsening LLE pain FINDINGS: Status post laminectomy involving L4 and L5. There is 4 cm by 2.4 cm by 5.8 cm (AP by transverse by craniocaudal) extra thecal fluid at the operative site now exerting less mass effect upon the posterior thecal sac than on the comparison examination. There is enhancement of the surgical bed within normal limits. The previously demonstrated drainage catheter is not identified on today's examination. There is subtle central clumping of the nerve roots at L4. No herniated disc or significant canal or foraminal narrowing. The alignment is anatomic. RECOMMENDATIONS: Postoperative changes with extradural fluid collection again demonstrated. On today's examination there is less mass effect on the posterior thecal sac. No interval increased epidural collection or herniated disc. Interpreted by: Kwaku Martinez Preliminary Report By: Kwaku Martinez Electronically signed By Kwaku Martinez Dictated Date: 02/24/2024 9:48:38 AM Prelim Date: 02/24/2024 10:02:56 AM Sign Date: 02/24/2024 10:02:56 AM Ordering Provider: ORIN Zayas [facility] (ID) CRPon 01-02-2024 C-Reactive Protein 3.7 mg/dL High 0.0-1.0 [facility] (ID) Comment on above: Result Comment: No te - New Reference Range in effect 20 Performed By: #### C SRAVANI HERNDON, ANEU #### [address] [address] ESRon 01-02-2024 Erythrocyte Sed Rate 47 mm/hr High 0-20 [facility]) Comment on above: Performed By: #### C SRAVANI HERNDON, ANEU #### [address] [address] LABORATORYOrdered By: Dhara Diggs on 01-02-2024 Blood Glucose Testing Reason Routine (01/02/24 12:10 PM) [facility] Work Phone: Glucose [Mass/Vol] 93 mg/dL Normal 70 - 110 mg/dL [facility] Work Phone: Blood Glucose Testing Reason Routine (01/02/24 7:55 AM) [facility] Work Phone: Glucose [Mass/Vol] 93 mg/dL Normal 70 - 110 mg/dL [facility] Work Phone: LABORATORYOrdered By: SYSTEM SYSTEM on 01-02-2024 CRP [Mass/Vol] 3.7 mg/dL High 0.0 - 1.0 mg/dL [facility] Comment on above: Interpretive Data: * *Note - New Reference Range in effect 20 LABORATORYOrdered By: Tayler Puri on 01-02-2024 ESR 15 minute reading (Bld) [Velocity] 47 mm/hr High 0 - 20 mm/hr AH Auto Heme SS LABORATORYOrdered By: Ariel Kat on 01-01-2024 Blood Glucose Testing Reason Routine (01/01/24 3:52 PM) [facility] Work Phone: Glucose [Mass/Vol] 99 mg/dL Normal 70 - 110 mg/dL [facility] Work Phone: .Auto Diffon 12-30-2023 Basophil, Absolute 0.0 10 3/mcL Normal 0.0-0.3 [facility] ([place]) Comment on above: Performed By: #### C BC, ADIFF, ANEU, BMP, GFR ####[address] [address] Basophils/100 WBC (Bld) 0.7 % Normal 0.0-2.5 [facility] ([place]) Comment on above: Performed By: #### C BC, ADIFF, ANEU, BMP, GFR ####[address] [address] [address] Eosinophil, Absolute 0.3 10 3/mcL Normal 0.0-0.7 [facility] ([place]) Comment on above: Performed By: #### C BC, ADIFF, ANEU, BMP, GFR ####[address] [address] Eosinophils/100 WBC (Bld) 3.9 % Normal 0.0-6.0 [facility] ([place]) Comment on above: Performed By: #### C BC, ADIFF, ANEU, BMP, GFR ####[address] [address] Lymphocyte, Absolute 1.6 10 3/mcL Normal 0.9-4.3 [facility] ([place]) Comment on above: Performed By: #### C BC, ADIFF, ANEU, BMP, GFR ####[address] [address] Lymphocytes/100 WBC (Bld) 22.6 % Normal 20.0-40.0 [facility] ([place]) Comment on above: Performed By: #### C BC, ADIFF, ANEU, BMP, GFR ####[address] [address] Monocyte, Absolute 0.5 10 3/mcL Normal 0.1-1.4 [facility] ([place]) Comment on above: Performed By: #### C BC, ADIFF, ANEU, BMP, GFR ####[address] [address] Monocytes/100 WBC (Bld) 7.0 % Normal 2.0-13.0 [facility] ([place]) Comment on above: Performed By: #### C BC, ADIFF, ANEU, BMP, GFR ####[address] [address] Neutrophils/100 WBC (Bld) 65.8 % Normal 50.0-75.0 [facility] ([place]) Comment on above: Performed By: #### C BC, ADIFF, ANEU, BMP, GFR ####[address] [address] .GFRon 12-30-2023 GFR >60 Normal [facility] ([place]) Comment on above: Result Comment: GFR Population mean for , Non- Americans Ages 20-29 = 116 mL/min/1.73 sq.m. Ages 30-39 = 107 mL/min/1.73 sq.m. Ages 40-49 = 99 mL/min/1.73 sq.m. Ages 50-59 = 93 mL/min/1.73 sq.m. Ages 60-69 = 85 mL/min/1.73 sq.m. Ages 70+ = 75 mL/min/1.73 sq.m. Chronic Kidney Disease: Less than 60 mL/min/1.73 square meters End Stage Renal Disease: Less than 15 mL/min/1.73 square meters Performed By: #### C BC, ADIFF, ANEU, BMP, GFR ####[address] [address] GFR Non- >60 Normal [facility] ([place]) Comment on above: Result Comment: GFR Population mean for , Non- Americans Ages 20-29 = 116 mL/min/1.73 sq.m. Ages 30-39 = 107 mL/min/1.73 sq.m. Ages 40-49 = 99 mL/min/1.73 sq.m. Ages 50-59 = 93 mL/min/1.73 sq.m. Ages 60-69 = 85 mL/min/1.73 sq.m. Ages 70+ = 75 mL/min/1.73 sq.m. Chronic Kidney Disease: Less than 60 mL/min/1.73 square meters End Stage Renal Disease: Less than 15 mL/min/1.73 square meters Performed By: #### C BC, ADIFF, ANEU, BMP, GFR ####[address] [address] .NEUABSon 12-30-2023 Neutrophil, Absolute 4.8 10 3/mcL Normal 2.3-8.1 [facility] ([place]) Comment on above: Performed By: #### C BC, ADIFF, ANEU, BMP, GFR ####[address] [address] BMPon 12-30-2023 BUN/Creatinine Ratio 16.5 ratio Normal 10.0-22.0 [facility] ([place]) Comment on above: Performed By: #### C BC, ADIFF, ANEU, BMP, GFR ####[place] [address] Calcium [Mass/Vol] 9.1 mg/dL Normal 8.7-10.4 [facility] ([place]) Comment on above: Performed By: #### C BC, ADIFF, ANEU, BMP, GFR ####[address] [address] Chloride [Moles/Vol] 107 mmol/L Normal 98-110 [facility] ([place]) Comment on above: Performed By: #### C BC, ADIFF, ANEU, BMP, GFR ####[address] [address] CO2 [Moles/Vol] 23 mmol/L Normal 22-32 [facility] ([place]) Comment on above: Performed By: #### C BC, ADIFF, ANEU, BMP, GFR ####[address] [address] Creatinine [Mass/Vol] 0.79 mg/dL Normal 0.60-1.40 [facility] ([place]) Comment on above: Performed By: #### C BC, ADIFF, ANEU, BMP, GFR ####[place] [address] Electrolyte Balance 11.0 mEq/L Normal 4.0-15.0 [facility] ([place]) Comment on above: Performed By: #### C BC, ADIFF, ANEU, BMP, GFR ####[place] [address] Glucose [Mass/Vol] 100 mg/dL Normal 70-110 [facility] ([place]) Comment on above: Performed By: #### C BC, ADIFF, ANEU, BMP, GFR ####[place] [address] Potassium [Moles/Vol] 4.4 mmol/L Normal 3.5-5.0 [facility] ([place]) Comment on above: Performed By: #### C BC, ADIFF, ANEU, BMP, GFR ####[place] [address] Sodium [Moles/Vol] 141 mmol/L Normal 136-145 [facility] ([place]) Comment on above: Performed By: #### C BC, ADIFF, ANEU, BMP, GFR ####[place] [address] Urea nitrogen [Mass/Vol] 13.0 mg/dL Normal 8.0-22.0 [facility] ([place]) Comment on above: Performed By: #### C BC, ADIFF, ANEU, BMP, GFR ####[place] [address] CBCon 12-30-2023 Erythrocyte distribution width (RBC) [Ratio] 13.1 % Normal 11.5-15.5 [facility] ([place]) Comment on above: Performed By: #### C BC, ADIFF, ANEU, BMP, GFR ####[place] [address] Hematocrit (Bld) [Volume fraction] 35.0 % Low 40.0-52.0 [facility] ([place]) Comment on above: Performed By: #### C BC, ADIFF, ANEU, BMP, GFR ####[place] [address] Hgb 12.1 G/dL Low 13.0-17.5 [facility] ([place]) Comment on above: Performed By: #### C BC, ADIFF, ANEU, BMP, GFR ####[place] [address] MCH (RBC) [Entitic mass] 30.6 pg Normal 27.0-33.0 [facility] ([place]) Comment on above: Performed By: #### C BC, ADIFF, ANEU, BMP, GFR ####[place] [address] MCHC 34.6 G/dL Normal 32.0-36.0 [facility] ([place]) Comment on above: Performed By: #### C BC, ADIFF, ANEU, BMP, GFR ####[place] [address] MCV (RBC) [Entitic vol] 88.4 fL Normal 81.0-100.0 [facility] ([place]) Comment on above: Performed By: #### C BC, ADIFF, ANEU, BMP, GFR ####[place] [address] Platelet 279 10 3/mcL Normal 150-450 [facility] ([place]) Comment on above: Performed By: #### C BC, ADIFF, ANEU, BMP, GFR ####[place] [address] Platelet mean volume (Bld) [Entitic vol] 8.1 fL Normal 6.4-10.5 [facility] ([place]) Comment on above: Performed By: #### C BC, ADIFF, ANEU, BMP, GFR ####[place] [address] RBC 3.95 10 6/mcL Low 4.50-6.00 [facility] ([place]) Comment on above: Performed By: #### C BC, ADIFF, ANEU, BMP, GFR ####[facility] [place] [address] WBC 7.2 10 3/mcL Normal 4.5-10.8 [facility] ([place]) Comment on above: Performed By: #### C BC, SRAVANI, ANEU, BMP, GFR ####[facility] [place] [address] LABORATORYOrdered By: SYSTEM SYSTEM on 12-30-2023 Basophils (Bld) [#/Vol] 0.0 103/mcL Normal 0.0 - 0.3 10^3/mcL AH Workflow SS Basophils/100 WBC (Bld) 0.7 % Normal 0.0 - 2.5 % AH Workflow SS Calcium [Mass/Vol] 9.1 mg/dL Normal 8.7 - 10. 4 mg/dL AH ADM SS Chloride [Moles/Vol] 107 mmol/L Normal 98 - 11 0 mEq/L AH ADM SS CO2 [Moles/Vol] 23 mmol/L Normal 22 - 32 mEq/L AH ADM SS Creatinine [Mass/Vol] 0.79 mg/dL Normal 0.60 - 1.40 mg/dL AH ADM SS Electrolyte Balance 11.0 mEq/L Normal 4.0 - 15 .0 mEq/L AH ADM SS Eosinophils (Bld) [#/Vol] 0.3 103/mcL Normal 0.0 - 0.7 10^3/mcL AH Workflow SS Eosinophils/100 WBC (Bld) 3.9 % Normal 0.0 - 6.0 % AH Workflow SS Erythrocyte distribution width (RBC) [Ratio] 13.1 % Normal 11.5 - 15.5 % AH Workflow SS GFR/1.73 sq M.predicted among blacks MDRD (S/P/Bld) [Vol rate/Area] ml/min/1.73sqm Invalid Interpretation Code AH ADM SS Comment on above: Interpretive Data: GFR Population mean for , Non- Americans Ages 20-29 = 116 mL/min/1.73 sq.m. Ages 30-39 = 107 mL/min/1.73 sq.m. Ages 40-49 = 99 mL/min/1.73 sq.m. Ages 50-59 = 93 mL/min/1.73 sq.m. Ages 60-69 = 85 mL/min/1.73 sq.m. Ages 70+ = 75 mL/min/1.73 sq.m. Chronic Kidney Disease: Less than 60 mL/min/1.73 square meters End Stage Renal Disease: Less than 15 mL/min/1.73 square meters GFR/1.73 sq M.predicted among non-blacks MDRD (S/P/Bld) [Vol rate/Area] ml/min/1.73sqm Invalid Interpretation Code AH ADM SS Comment on above: Interpretive Data: GFR Population mean for , Non- Americans Ages 20-29 = 116 mL/min/1.73 sq.m. Ages 30-39 = 107 mL/min/1.73 sq.m. Ages 40-49 = 99 mL/min/1.73 sq.m. Ages 50-59 = 93 mL/min/1.73 sq.m. Ages 60-69 = 85 mL/min/1.73 sq.m. Ages 70+ = 75 mL/min/1.73 sq.m. Chronic Kidney Disease: Less than 60 mL/min/1.73 square meters End Stage Renal Disease: Less than 15 mL/min/1.73 square meters Glucose [Mass/Vol] 100 mg/dL Normal 70 - 110 mg/dL ADM SS Hematocrit (Bld) [Volume fraction] 35.0 % Low 40.0 - 52.0 % AH Workflow SS Hemoglobin (Bld) [Mass/Vol] 12.1 G/dL Low 13.0 - 17.5 G/dL AH Workflow SS Lymphocytes (Bld) [#/Vol] 1.6 103/mcL Normal 0.9 - 4.3 10^3/mcL AH Workflow SS Lymphocytes/100 WBC (Bld) 22.6 % Normal 20.0 - 40.0 % AH Workflow SS MCH (RBC) [Entitic mass] 30.6 pg Normal 27.0 - 33.0 pg AH Workflow SS MCHC 34.6 G/dL Normal 32.0 - 36.0 G/dL AH Workflow SS MCV (RBC) [Entitic vol] 88.4 fL Normal 81.0 - 100.0 fL AH Workflow SS Monocytes (Bld) [#/Vol] 0.5 103/mcL Normal 0.1 - 1.4 10^3/mcL AH Workflow SS Monocytes/100 WBC (Bld) 7.0 % Normal 2.0 - 13.0 % AH Workflow SS Neutrophils (Bld) [#/Vol] 4.8 103/mcL Normal 2.3 - 8.1 10^3/mcL AH Workflow SS Neutrophils/100 WBC (Bld) 65.8 % Normal 50.0 - 75.0 % AH Workflow SS Platelet mean volume (Bld) [Entitic vol] 8.1 fL Normal 6.4 - 10.5 fL AH Workflow SS Platelets (Bld) [#/Vol] 279 103/mcL Normal 150 - 450 10^3/mcL AH Workflow SS Potassium [Moles/Vol] 4.4 mmol/L Normal 3.5 - 5.0 mEq/L AH ADM SS RBC (Bld) [#/Vol] 3.95 106/mcL Low 4.50 - 6.0 0 10^6/mcL AH Workflow SS Sodium [Moles/Vol] 141 mmol/L Normal 136 - 145 mEq/L ADM SS Urea nitrogen [Mass/Vol] 13.0 mg/dL Normal 8.0 - 22.0 mg/dL ADM SS Urea nitrogen/Creatinine [Mass ratio] 16.5 ratio Normal 10.0 - 22.0 ratio AH ADM SS WBC (Bld) [#/Vol] 7.2 103/mcL Normal 4.5 - 10.8 10^3/mcL Workflow SS .Auto Diffon 12-29-2023 Basophil, Absolute 0.1 10 3/mcL Normal 0.0-0.3 [facility] ([place]) Comment on above: Performed By: #### C SRAVANI HERNDON, ANEU #### [address] [address] Basophils/100 WBC (Bld) 1.0 % Normal 0.0-2.5 [facility] ([place]) Comment on above: Performed By: #### C SRAVANI HERNDON, ANEU #### [address] [address] Eosinophil, Absolute 0.3 10 3/mcL Normal 0.0-0.7 [facility] ([place]) Comment on above: Performed By: #### C SRAVANI HERNDON, ANEU #### [address] [address] Eosinophils/100 WBC (Bld) 3.7 % Normal 0.0-6.0 [facility] ([place]) Comment on above: Performed By: #### C SRAVANI HERNDON, ANEU #### [address] [address] Lymphocyte, Absolute 1.9 10 3/mcL Normal 0.9-4.3 [facility] ([place]) Comment on above: Performed By: #### C SRAVANI HERNDON, ANEU #### [address] [address] Lymphocytes/100 WBC (Bld) 24.3 % Normal 20.0-40.0 [facility] ([place]) Comment on above: Performed By: #### C SRAVANI HERNDON, ANEU #### [address] [address] Monocyte, Absolute 0.7 10 3/mcL Normal 0.1-1.4 [facility] ([place]) Comment on above: Performed By: #### C SRAVANI HERNDON, ANEU #### [address] [address] Monocytes/100 WBC (Bld) 9.5 % Normal 2.0-13.0 [facility] ([place]) Comment on above: Performed By: #### C SRAVANI HERNDON, ANEU #### [address] [address] Neutrophils/100 WBC (Bld) 61.5 % Normal 50.0-75.0 [facility] ([place]) Comment on above: Performed By: #### C SRAVANI HERNDON, ANEU #### [address] [address] .NEUABSon 12-29-2023 Neutrophil, Absolute 4.7 10 3/mcL Normal 2.3-8.1 [facility] ([place]) Comment on above: Performed By: #### C SRAVANI HERNDON, ANEU #### [address] [address] BFCTon 12-29-2023 Cells Counted BF 100 Normal [facility] ([place]) Comment on above: Performed By: #### C SRAVANI HERNDON, ANEU #### [address] [address] Lymphocytes/100 WBC (Bld) 53 % Normal [facility] ([place]) Comment on above: Performed By: #### C BC, ADIFF, ANEU #### [address] [address] Mononuclear cell % BF 22 % Normal [facility] ([place]) Comment on above: Performed By: #### C BC, ADIFF, ANEU #### [address] [address] Neutrophils/100 WBC (Bld) 24 % Normal [facility] ([place]) Comment on above: Performed By: #### C BC, ADIFF, ANEU #### [address] [address] Plasma Cell % BF 1 % Normal [facility] ([place]) Comment on above: Performed By: #### C BC, ADIFF, ANEU #### [address] [address] Body Fluid Source Shunt fluid Normal [facility] ([place]) Comment on above: Result Comment: Refe rence ranges have not been established for this body fluid. The test results must be integrated into the clinical context for interpretation. Performed By: #### C BC, ADIFF, ANEU #### [address] [address] Clarity BF Slightly Hazy Normal [facility] ([place]) Comment on above: Performed By: #### C BC, ADIFF, ANEU #### [address] [address] Color BF Lima Normal [facility] ([place]) Comment on above: Performed By: #### C BC, ADIFF, ANEU #### [address] [address] RBC BF 4397 /mm3 Normal [facility] ([place]) Comment on above: Performed By: #### C BC, ADIFF, ANEU #### [address] [address] WBC BF 35 /mm3 Normal [facility] ([place]) Comment on above: Performed By: #### C BC, ADIFF, ANEU #### [address] [address] CBCon 12-29-2023 Erythrocyte distribution width (RBC) [Ratio] 13.5 % Normal 11.5-15.5 [facility] ([place]) Comment on above: Performed By: #### SRAVANI CAMILO ANEU #### [address] [address] Hematocrit (Bld) [Volume fraction] 34.7 % Low 40.0-52.0 [facility] ([place]) Comment on above: Performed By: #### SRAVANI CAMILO ANEU #### [address] [address] Hgb 12.0 G/dL Low 13.0-17.5 [facility] ([place]) Comment on above: Performed By: #### SRAVANI CAMILO ANEU #### [address] [address] MCH (RBC) [Entitic mass] 30.8 pg Normal 27.0-33.0 [facility] ([place]) Comment on above: Performed By: #### SRAVANI CAMILO ANEU #### [address] [address] MCHC 34.5 G/dL Normal 32.0-36.0 [facility] ([place]) Comment on above: Performed By: #### SRAVANI CAMILO ANEU #### [address] [address] MCV (RBC) [Entitic vol] 89.5 fL Normal 81.0-100.0 [facility] ([place]) Comment on above: Performed By: #### C SRAVANI HERNDON ANEU #### [address] [address] Platelet 243 10 3/mcL Normal 150-450 [facility] ([place]) Comment on above: Performed By: #### SRAVANI CAMILO, LUIGI #### [address] [address] Platelet mean volume (Bld) [Entitic vol] 8.2 fL Normal 6.4-10.5 [facility] ([place]) Comment on above: Performed By: #### SRAVANI CAMILO ANEU #### [address] [address] RBC 3.88 10 6/mcL Low 4.50-6.00 [facility] ([place]) Comment on above: Performed By: #### C SRAVANI HERNDON, ANEU #### [address] [address] WBC 7.6 10 3/mcL Normal 4.5-10.8 [facility] ([place]) Comment on above: Performed By: #### C SRAVANI HERNDON, ANEU #### [address] [address] CSFCTon 12-29-2023 Basophil % (csf) x Normal [facility] ([place]) Comment on above: Performed By: #### C SRAVANI HERNDON, ANEU #### [address] [address] Comment CSF x Normal [facility] ([place]) Comment on above: Performed By: #### C SRAVANI HERNDON, ANEU #### [address] [address] Eosinophil % (csf) x Normal [facility] ([place]) Comment on above: Performed By: #### C SRAVANI HERNDON, ANEU #### [address] [address] Lymphocyte % (csf) x Normal 40-80 [facility] ([place]) Comment on above: Performed By: #### C SRAVANI HERNDON, ANEU #### [address] [address] Mononuclear Cell % (csf) x Normal 15-45 [facility] ([place]) Comment on above: Performed By: #### C SRAVANI HERNDON, ANEU #### [address] [address] Neutrophil % (csf) x Normal 0-6 [facility] ([place]) Comment on above: Performed By: #### C SRAVANI HERNDON, ANEU #### [address] [address] Other Cell Type % (csf) x Normal [facility] ([place]) Comment on above: Performed By: #### C SRAVANI HERNDON, ANEU #### [facility] [address] [place] [address] Ventricular Lining Cell % (csf) x Normal [facility] ([place]) Comment on above: Performed By: #### C BC, ADIFF, ANEU #### [facility] [address] [place] [address] Cells Count CSF x Normal [facility] ([place]) Comment on above: Performed By: #### C BC, ADIFF, ANEU #### [facility] [address] [place] [address] RBC CSF x Normal 0-1 [facility] ([place]) Comment on above: Performed By: #### C BC, ADIFF, ANEU #### [address] [address] WBC CSF x Normal 0-5 [facility] ([place]) Comment on above: Performed By: #### C BC, ADIFF, ANEU #### [address] [address] Clarity CSF see comment Normal [facility] ([place]) Comment on above: Result Comment: wron g test ordered Performed By: #### C BC, ADIFF, ANEU #### [address] [address] Color CSF see comment Normal [facility] ([place]) Comment on above: Result Comment: wron g test ordered Performed By: #### C BC, ADIFF, ANEU #### [address] [address] GLUSFon 12-29-2023 GLU CSF Spec Shunt fluid Normal [facility] ([place]) Comment on above: Performed By: #### P ROSF1, GLUSF, LACSF ####[address] [address] Glucose CSF 64 mg/dL Normal 40-70 [facility] ([place]) Comment on above: Performed By: #### P ROSF1, GLUSF, LACSF ####[address] [address] LABORATORYOrdered By: SYSTEM SYSTEM on 12-29-2023 Basophils (Bld) [#/Vol] 0.1 103/mcL Normal 0.0 - 0.3 10^3/mcL AH Workflow SS Basophils/100 WBC (Bld) 1.0 % Normal 0.0 - 2.5 % AH Workflow SS Eosinophils (Bld) [#/Vol] 0.3 103/mcL Normal 0.0 - 0.7 10^3/mcL AH Workflow SS Eosinophils/100 WBC (Bld) 3.7 % Normal 0.0 - 6.0 % AH Workflow SS Erythrocyte distribution width (RBC) [Ratio] 13.5 % Normal 11.5 - 15.5 % AH Workflow SS Hematocrit (Bld) [Volume fraction] 34.7 % Low 40.0 - 52.0 % AH Workflow SS Hemoglobin (Bld) [Mass/Vol] 12.0 G/dL Low 13.0 - 17.5 G/dL AH Workflow SS Lymphocytes (Bld) [#/Vol] 1.9 103/mcL Normal 0.9 - 4.3 10^3/mcL AH Workflow SS Lymphocytes/100 WBC (Bld) 24.3 % Normal 20.0 - 40.0 % AH Workflow SS MCH (RBC) [Entitic mass] 30.8 pg Normal 27.0 - 33.0 pg AH Workflow SS MCHC 34.5 G/dL Normal 32.0 - 36.0 G/dL AH Workflow SS MCV (RBC) [Entitic vol] 89.5 fL Normal 81.0 - 100.0 fL AH Workflow SS Monocytes (Bld) [#/Vol] 0.7 103/mcL Normal 0.1 - 1.4 10^3/mcL AH Workflow SS Monocytes/100 WBC (Bld) 9.5 % Normal 2.0 - 13.0 % AH Workflow SS Neutrophils (Bld) [#/Vol] 4.7 103/mcL Normal 2.3 - 8.1 10^3/mcL AH Workflow SS Neutrophils/100 WBC (Bld) 61.5 % Normal 50.0 - 75.0 % AH Workflow SS Platelet mean volume (Bld) [Entitic vol] 8.2 fL Normal 6.4 - 10.5 fL AH Workflow SS Platelets (Bld) [#/Vol] 243 103/mcL Normal 150 - 450 10^3/mcL AH Workflow SS RBC (Bld) [#/Vol] 3.88 106/mcL Low 4.50 - 6.0 0 10^6/mcL AH Workflow SS WBC (Bld) [#/Vol] 7.6 103/mcL Normal 4.5 - 10.8 10^3/mcL Workflow SS LACSFon 12-29-2023 LAC Acid CSF Sp Shunt fluid Normal [facility] ([place]) Comment on above: Performed By: #### P ROSF1, GLUSF, LACSF ####[place] [address] Lactic Acid CSF 2.1 mmol/L Normal 0.0-3.9 [facility] ([place]) Comment on above: Performed By: #### P ROSF1, GLUSF, LACSF ####[place] [address] PROSFon 12-29-2023 Prot CSF Spec Shunt fluid Normal [facility] ([place]) Comment on above: Performed By: #### P ROSF1, GLUSF, LACSF ####[place] [address] Protein CSF 135.0 mg/dL High 8.0-32.0 [facility] ([place]) Comment on above: Performed By: #### P ROSF1, GLUSF, LACSF ####[place] [address] .Auto Diffon 12-28-2023 Basophil, Absolute 0.1 10 3/mcL Normal 0.0-0.3 [facility] ([place]) Comment on above: Performed By: #### C BC, ADIFF, ANEU, BMP, MG, PHOS, GFR ####[place] [address] Basophils/100 WBC (Bld) 0.7 % Normal 0.0-2.5 [facility] ([place]) Comment on above: Performed By: #### C BC, ADIFF, ANEU, BMP, MG, PHOS, GFR ####[place] [address] Eosinophil, Absolute 0.1 10 3/mcL Normal 0.0-0.7 [facility] ([place]) Comment on above: Performed By: #### C BC, ADIFF, ANEU, BMP, MG, PHOS, GFR ####[address] [address] Eosinophils/100 WBC (Bld) 0.7 % Normal 0.0-6.0 [facility] ([place]) Comment on above: Performed By: #### C BC, ADIFF, ANEU, BMP, MG, PHOS, GFR ####[address] [address] Lymphocyte, Absolute 1.3 10 3/mcL Normal 0.9-4.3 [facility] ([place]) Comment on above: Performed By: #### C BC, ADIFF, ANEU, BMP, MG, PHOS, GFR ####[address] [address] Lymphocytes/100 WBC (Bld) 12.2 % Low 20.0-40.0 [facility] ([place]) Comment on above: Performed By: #### C BC, ADIFF, ANEU, BMP, MG, PHOS, GFR ####[address] [address] Monocyte, Absolute 0.7 10 3/mcL Normal 0.1-1.4 [facility] ([place]) Comment on above: Performed By: #### C BC, ADIFF, ANEU, BMP, MG, PHOS, GFR ####[address] [address] Monocytes/100 WBC (Bld) 6.4 % Normal 2.0-13.0 [facility] ([place]) Comment on above: Performed By: #### C BC, ADIFF, ANEU, BMP, MG, PHOS, GFR ####[address] [address] Neutrophils/100 WBC (Bld) 80.0 % High 50.0-75.0 [facility] ([place]) Comment on above: Performed By: #### C BC, ADIFF, ANEU, BMP, MG, PHOS, GFR ####[address] [address] .GFRon 12-28-2023 GFR >60 Normal [facility] ([place]) Comment on above: Result Comment: GFR Population mean for , Non- Americans Ages 20-29 = 116 mL/min/1.73 sq.m. Ages 30-39 = 107 mL/min/1.73 sq.m. Ages 40-49 = 99 mL/min/1.73 sq.m. Ages 50-59 = 93 mL/min/1.73 sq.m. Ages 60-69 = 85 mL/min/1.73 sq.m. Ages 70+ = 75 mL/min/1.73 sq.m. Chronic Kidney Disease: Less than 60 mL/min/1.73 square meters End Stage Renal Disease: Less than 15 mL/min/1.73 square meters Performed By: #### C BC, ADIFF, ANEU, BMP, MG, PHOS, GFR ####[address] [address] GFR Non- >60 Normal [facility] ([place]) Comment on above: Result Comment: GFR Population mean for , Non- Americans Ages 20-29 = 116 mL/min/1.73 sq.m. Ages 30-39 = 107 mL/min/1.73 sq.m. Ages 40-49 = 99 mL/min/1.73 sq.m. Ages 50-59 = 93 mL/min/1.73 sq.m. Ages 60-69 = 85 mL/min/1.73 sq.m. Ages 70+ = 75 mL/min/1.73 sq.m. Chronic Kidney Disease: Less than 60 mL/min/1.73 square meters End Stage Renal Disease: Less than 15 mL/min/1.73 square meters Performed By: #### C BC, ADIFF, ANEU, BMP, MG, PHOS, GFR ####[address] [address] .NEUABSon 12-28-2023 Neutrophil, Absolute 8.5 10 3/mcL High 2.3-8.1 [facility] ([place]) Comment on above: Performed By: #### C BC, ADIFF, ANEU, BMP, MG, PHOS, GFR ####[address] [address] BFCTon 12-28-2023 Cells Counted BF 62 Normal [facility] ([place]) Comment on above: Performed By: #### B FCT ####[address] [address] Eosinophils/100 WBC (Bld) 2 % Normal [facility] ([place]) Comment on above: Performed By: #### B FCT ####[address] [address] Lymphocytes/100 WBC (Bld) 24 % Normal [facility] ([place]) Comment on above: Performed By: #### B FCT ####[address] [address] Mononuclear cell % BF 6 % Normal [facility] ([place]) Comment on above: Performed By: #### B FCT ####[address] [address] Neutrophils/100 WBC (Bld) 68 % Normal [facility] ([place]) Comment on above: Performed By: #### B FCT ####[address] [address] BMPon 12-28-2023 BUN/Creatinine Ratio 11.8 ratio Normal 10.0-22.0 [facility] ([place]) Comment on above: Performed By: #### C BC, ADIFF, ANEU, BMP, MG, PHOS, GFR ####[address] [address] Calcium [Mass/Vol] 9.3 mg/dL Normal 8.7-10.4 [facility] ([place]) Comment on above: Performed By: #### C BC, ADIFF, ANEU, BMP, MG, PHOS, GFR ####[address] [address] Chloride [Moles/Vol] 104 mmol/L Normal 98-110 [facility] ([place]) Comment on above: Performed By: #### C BC, ADIFF, ANEU, BMP, MG, PHOS, GFR ####[address] [address] CO2 [Moles/Vol] 26 mmol/L Normal 22-32 [facility] ([place]) Comment on above: Performed By: #### C BC, ADIFF, ANEU, BMP, MG, PHOS, GFR ####[place] [address] Creatinine [Mass/Vol] 0.68 mg/dL Normal 0.60-1.40 [facility] ([place]) Comment on above: Performed By: #### C BC, ADIFF, ANEU, BMP, MG, PHOS, GFR ####[place] [address] Electrolyte Balance 7.0 mEq/L Normal 4.0-15.0 [facility] ([place]) Comment on above: Performed By: #### C BC, ADIFF, ANEU, BMP, MG, PHOS, GFR ####[place] [address] Glucose [Mass/Vol] 127 mg/dL High 70-110 [facility] ([place]) Comment on above: Performed By: #### C BC, ADIFF, ANEU, BMP, MG, PHOS, GFR ####[place] [address] Potassium [Moles/Vol] 4.3 mmol/L Normal 3.5-5.0 [facility] ([place]) Comment on above: Performed By: #### C BC, ADIFF, ANEU, BMP, MG, PHOS, GFR ####[place] [address] Sodium [Moles/Vol] 137 mmol/L Normal 136-145 [facility] ([place]) Comment on above: Performed By: #### C BC, ADIFF, ANEU, BMP, MG, PHOS, GFR ####[place] [address] Urea nitrogen [Mass/Vol] 8.0 mg/dL Normal 8.0-22.0 [facility] ([place]) Comment on above: Performed By: #### C BC, ADIFF, ANEU, BMP, MG, PHOS, GFR ####[address] [address] [facility]Con 12-28-2023 Erythrocyte distribution width (RBC) [Ratio] 13.7 % Normal 11.5-15.5 [facility] ([place]) Comment on above: Performed By: #### C BC, ADIFF, ANEU, BMP, MG, PHOS, GFR ####[place] [address] Hematocrit (Bld) [Volume fraction] 38.6 % Low 40.0-52.0 [facility] ([place]) Comment on above: Performed By: #### C BC, ADIFF, ANEU, BMP, MG, PHOS, GFR ####[place] [address] Hgb 13.3 G/dL Normal 13.0-17.5 [facility] ([place]) Comment on above: Performed By: #### C BC, ADIFF, ANEU, BMP, MG, PHOS, GFR ####[place] [address] MCH (RBC) [Entitic mass] 30.7 pg Normal 27.0-33.0 [facility] ([place]) Comment on above: Performed By: #### C BC, ADIFF, ANEU, BMP, MG, PHOS, GFR ####[place] [address] MCHC 34.6 G/dL Normal 32.0-36.0 [facility] ([place]) Comment on above: Performed By: #### C BC, ADIFF, ANEU, BMP, MG, PHOS, GFR ####[place] [address] MCV (RBC) [Entitic vol] 88.6 fL Normal 81.0-100.0 [facility] ([place]) Comment on above: Performed By: #### C BC, ADIFF, ANEU, BMP, MG, PHOS, GFR ####[place] [address] Platelet 271 10 3/mcL Normal 150-450 [facility] ([place]) Comment on above: Performed By: #### C BC, ADIFF, ANEU, BMP, MG, PHOS, GFR ####[place] [address] Platelet mean volume (Bld) [Entitic vol] 7.6 fL Normal 6.4-10.5 [facility] ([place]) Comment on above: Performed By: #### C BC, ADIFF, ANEU, BMP, MG, PHOS, GFR ####[facility] [place] [address] RBC 4.35 10 6/mcL Low 4.50-6.00 [facility] ([place]) Comment on above: Performed By: #### C BC, ADIFF, ANEU, BMP, MG, PHOS, GFR ####[place] [id number] [place] [address] WBC 10.6 10 3/mcL Normal 4.5-10.8 [facility] ([place]) Comment on above: Performed By: #### C BC, ADIFF, ANEU, BMP, MG, PHOS, GFR ####[facility] [place] [address] CEFEPIME:SUSC:PT:ISOLATE:ORD QN:MICon 12-28-2023 Cefepime KE [Susc] Staphylococcus epidermidis From liquid media only No anaerobes isolated at 5 days. [facility] Work Phone: CT SPINE LUMBAR W/CONTRASTon 12-28-2023 CT SPINE LUMBAR W/CONTRAST ORIGINAL HISTORY: CSF leak, laminectomy COMPARISON: CT and MR 22 December 2023. TECHNIQUE: CT myelogram of the lumbar spine following uncomplicated administration of intrathecal contrast, with sagittal and coronal reconstruction. This exam was performed according to our departmental dose optimization program, and includes the following measures where applicable: automated exposure control, adjustment of the mAs and/or kVp according to patient size and/or exam, and an iterative reconstruction algorithm. FINDINGS: There are 5 lumbar type vertebral bodies counting from the last visible rib. There is grade 1 retrolisthesis at L5-S1. There are L4-L5 laminectomies. There is a subarachnoid drain entering the thecal sac at the superior L4 level and extending superiorly. There is diffuse contrast material throughout the surgical bed most prominently around the graft but extending inferiorly to the lower aspect of the laminectomy. There is mass effect on the posterior thecal sac at L4-L5 through L5-S1, some combination of surgical changes and extradural fluid with contrast. The tip of the conus is at the L1 level. The visualized portion of the cord is unremarkable in appearance. Individual nerve roots are visualized through the lower L4 level, but discrete nerve roots are not visualized through L4-L5. Specific findings by level: L3-L4: There is no stenosis; the subarachnoid drain exits at this level. L4-L5: There is mild stenosis due to some combination of surgical change and extruded CSF/contrast material. L5-S1: There is at least mild stenosis; there is only minimal contrast flow to this level. IMPRESSION: Extensive contrast material in the laminectomy bed, some combination of CSF and or drain leak. Mild stenosis in the lower lumbar spine, some combination of surgical changes and extruded stenosis increased since the MR of 21 December. The cauda appears grossly unremarkable through the lower L4 level, and is not discretely visualized below this level, due mainly to stenosis. Interpreted by: Kristen Bowden MD Preliminary Report By: Kristen Bowden MD Electronically signed By Kristen Bowden MD Dictated Date: 12/28/2023 3:45:20 PM Prelim Date: 12/28/2023 4:24:02 PM Sign Date: 12/28/2023 4:24:02 PM Ordering Provider: FALLON Zayas [facility] ([place]) Cefepime KE [[facility]]on 2023 Staphylococcus epidermidis Staphylococcus epidermidis [facility] Work Phone: LABORATORYOrdered By: Sharan Godwin on 12-28-2023 Appearance (Body fld) Slightly Hazy (12/28/23 11:17 PM) Normal Manual Heme SS Appearance (Body fld) see comment Invalid Interpretation Code Manual Heme SS Comment on above: Result Comment: wron g test ordered Basophil % (csf) x Invalid Interpretation Code Manual Heme SS Cells Counted Total (CSF) [#] x Invalid Interpretation Code Manual Heme SS Cells Counted Total (Unsp spec) [#] 100 1 Invalid Interpretation Code Manual Heme SS Color (Body fld) Lima (12/28/23 11:17 PM) Normal Manual Heme SS Color (Body fld) see comment Invalid Interpretation Code AH Manual Heme SS Comment on above: Result Comment: wron g test ordered Comment CSF x Invalid Interpretation Code AH Manual Heme SS Eosinophils/100 WBC (Body fld) x Invalid Interpretation Code AH Manual Heme SS Lymphocytes/100 WBC (Body fld) 53 % Invalid Interpretation Code AH Manual Heme SS Lymphocytes/100 WBC (Body fld) x Invalid Interpretation Code 40 - 80 Manual Heme SS Monocytes+Macrophages /100 WBC (Body fld) 22 % Invalid Interpretation Code Manual Heme SS Monocytes+Macrophages /100 WBC (Body fld) x Invalid Interpretation Code 15 - 45 Manual Heme SS Neutrophils/100 WBC (Body fld) 24 % Invalid Interpretation Code Manual Heme SS Neutrophils/100 WBC (Body fld) x Invalid Interpretation Code 0 - 6 Manual Heme SS Plasma Cell % BF 1 % Invalid Interpretation Code Manual Heme SS RBC (Body fld) [#/Vol] 4397 10*3/uL Invalid Interpretation Code Manual Heme SS RBC (CSF) [#/Vol] x Invalid Interpretation Code 0 - 1 Manual Heme SS Specimen source Nom (Body fld) Shunt fluid 8 (12/28/23 11:17 PM) Normal Manual Heme SS Comment on above: Interpretive Data: R eference ranges have not been established for this body fluid. The test results must be integrated into the clinical context for interpretation. Ventricular Lining Cell % (csf) x Invalid Interpretation Code Manual Heme SS WBC (Body fld) [#/Vol] 35 10*3/uL Invalid Interpretation Code Manual Heme SS WBC (Body fld) [#/Vol] x Invalid Interpretation Code 0 - 5 Manual Heme SS WBC other/100 WBC Manual cnt (Body fld) x Invalid Interpretation Code Manual Heme SS LABORATORYOrdered By: Julia Barragan on 12-28-2023 GLU CSF Spec Shunt fluid (12/28/23 11:17 PM) Normal Chemistry S LAC Acid CSF Sp Shunt fluid (12/28/23 11:17 PM) Normal Chemistry S Prot CSF Spec Shunt fluid (12/28/23 11:17 PM) Normal Chemistry S LABORATORYOrdered By: [employer] on 12-28-2023 Glucose (CSF) [Mass/Vol] 64 mg/dL Normal 40 - 70 mg/dL ADM SS Lactate (CSF) [Moles/Vol] 2.1 mmol/L Normal 0.0 - 3.9 mmol/L ADM SS Protein (CSF) [Mass/Vol] 135.0 mg/dL High 8.0 - 32.0 mg/dL ADM SS Basophils (Bld) [#/Vol] 0.1 103/mcL Normal 0.0 - 0.3 10^3/mcL AH Workflow SS Basophils/100 WBC (Bld) 0.7 % Normal 0.0 - 2.5 % AH Workflow SS Calcium [Mass/Vol] 9.3 mg/dL Normal 8.7 - 10. 4 mg/dL AH ADM SS Chloride [Moles/Vol] 104 mmol/L Normal 98 - 11 0 mEq/L AH ADM SS CO2 [Moles/Vol] 26 mmol/L Normal 22 - 32 mEq/L AH ADM SS Creatinine [Mass/Vol] 0.68 mg/dL Normal 0.60 - 1.40 mg/dL AH ADM SS Electrolyte Balance 7.0 mEq/L Normal 4.0 - 15 .0 mEq/L ADM SS Eosinophils (Bld) [#/Vol] 0.1 103/mcL Normal 0.0 - 0.7 10^3/mcL Workflow SS Eosinophils/100 WBC (Bld) 0.7 % Normal 0.0 - 6.0 % Workflow SS Erythrocyte distribution width (RBC) [Ratio] 13.7 % Normal 11.5 - 15.5 % Workflow SS GFR/1.73 sq M.predicted among blacks MDRD (S/P/Bld) [Vol rate/Area] ml/min/1.73sqm Invalid Interpretation Code AH ADM SS Comment on above: Interpretive Data: GFR Population mean for , Non- Americans Ages 20-29 = 116 mL/min/1.73 sq.m. Ages 30-39 = 107 mL/min/1.73 sq.m. Ages 40-49 = 99 mL/min/1.73 sq.m. Ages 50-59 = 93 mL/min/1.73 sq.m. Ages 60-69 = 85 mL/min/1.73 sq.m. Ages 70+ = 75 mL/min/1.73 sq.m. Chronic Kidney Disease: Less than 60 mL/min/1.73 square meters End Stage Renal Disease: Less than 15 mL/min/1.73 square meters GFR/1.73 sq M.predicted among non-blacks MDRD (S/P/Bld) [Vol rate/Area] ml/min/1.73sqm Invalid Interpretation Code AH ADM SS Comment on above: Interpretive Data: GFR Population mean for , Non- Americans Ages 20-29 = 116 mL/min/1.73 sq.m. Ages 30-39 = 107 mL/min/1.73 sq.m. Ages 40-49 = 99 mL/min/1.73 sq.m. Ages 50-59 = 93 mL/min/1.73 sq.m. Ages 60-69 = 85 mL/min/1.73 sq.m. Ages 70+ = 75 mL/min/1.73 sq.m. Chronic Kidney Disease: Less than 60 mL/min/1.73 square meters End Stage Renal Disease: Less than 15 mL/min/1.73 square meters Glucose [Mass/Vol] 127 mg/dL High 70 - 110 mg/dL AH ADM SS Hematocrit (Bld) [Volume fraction] 38.6 % Low 40.0 - 52.0 % AH Workflow SS Hemoglobin (Bld) [Mass/Vol] 13.3 G/dL Normal 13.0 - 17.5 G/dL AH Workflow SS Lymphocytes (Bld) [#/Vol] 1.3 103/mcL Normal 0.9 - 4.3 10^3/mcL AH Workflow SS Lymphocytes/100 WBC (Bld) 12.2 % Low 20.0 - 40.0 % AH Workflow SS Magnesium [Mass/Vol] 2.1 mg/dL Normal 1.6 - 2 .4 mg/dL AH ADM SS MCH (RBC) [Entitic mass] 30.7 pg Normal 27.0 - 33.0 pg AH Workflow SS MCHC 34.6 G/dL Normal 32.0 - 36.0 G/dL AH Workflow SS MCV (RBC) [Entitic vol] 88.6 fL Normal 81.0 - 100.0 fL AH Workflow SS Monocytes (Bld) [#/Vol] 0.7 103/mcL Normal 0.1 - 1.4 10^3/mcL AH Workflow SS Monocytes/100 WBC (Bld) 6.4 % Normal 2.0 - 13.0 % AH Workflow SS Neutrophils (Bld) [#/Vol] 8.5 103/mcL High 2.3 - 8.1 10^3/mcL AH Workflow SS Neutrophils/100 WBC (Bld) 80.0 % High 50.0 - 75.0 % AH Workflow SS Phosphate [Mass/Vol] 3.1 mg/dL Normal 2.4 - 5 .1 mg/dL AH ADM SS Comment on above: Interpretive Data: * *Note - New Reference Range in effect 20 Platelet mean volume (Bld) [Entitic vol] 7.6 fL Normal 6.4 - 10.5 fL Workflow SS Platelets (Bld) [#/Vol] 271 103/mcL Normal 150 - 450 10^3/mcL AH Workflow SS Potassium [Moles/Vol] 4.3 mmol/L Normal 3.5 - 5.0 mEq/L ADM SS RBC (Bld) [#/Vol] 4.35 106/mcL Low 4.50 - 6.0 0 10^6/mcL AH Workflow SS Sodium [Moles/Vol] 137 mmol/L Normal 136 - 145 mEq/L ADM SS Urea nitrogen [Mass/Vol] 8.0 mg/dL Normal 8.0 - 22.0 mg/dL ADM SS Urea nitrogen/Creatinine [Mass ratio] 11.8 ratio Normal 10.0 - 22.0 ratio ADM SS WBC (Bld) [#/Vol] 10.6 103/mcL Normal 4.5 - 10.8 10^3/mcL Workflow SS MGon 12-28-2023 Magnesium [Mass/Vol] 2.1 mg/dL Normal 1.6-2.4 [facility] ([place]) Comment on above: Performed By: #### C BC, ADIFF, ANEU, BMP, MG, PHOS, GFR ####[address] [address] No Panel Informationon 12-27 Culture CSF No growth at 48 hours. A [facility] Work Phone: GS Sedimented No organisms seen. [facility] Work Phone: PHOSon 12-28-2023 Phosphate [Mass/Vol] 3.1 mg/dL Normal 2.4-5.1 [facility] ([place]) Comment on above: Result Comment: No te - New Reference Range in effect 20 Performed By: #### C BC, ADIFF, ANEU, BMP, MG, PHOS, GFR ####[address] [address] .Auto Diffon 12-27-2023 Basophil, Absolute 0.1 10 3/mcL Normal 0.0-0.3 [facility] ([place]) Comment on above: Performed By: #### L AC, CBC, ADIFF, ANEU, BMP, MG, PHOS, GFR ####[address] [address] Basophils/100 WBC (Bld) 1.2 % Normal 0.0-2.5 [facility] ([place]) Comment on above: Performed By: #### L AC, CBC, ADIFF, ANEU, BMP, MG, PHOS, GFR ####[address] [address] Eosinophil, Absolute 0.2 10 3/mcL Normal 0.0-0.7 [facility] ([place]) Comment on above: Performed By: #### L AC, CBC, ADIFF, ANEU, BMP, MG, PHOS, GFR ####[address] [address] Eosinophils/100 WBC (Bld) 2.2 % Normal 0.0-6.0 [facility] ([place]) Comment on above: Performed By: #### L AC, CBC, ADIFF, ANEU, BMP, MG, PHOS, GFR ####[address] [address] Lymphocyte, Absolute 2.5 10 3/mcL Normal 0.9-4.3 [facility] ([place]) Comment on above: Performed By: #### L AC, CBC, ADIFF, ANEU, BMP, MG, PHOS, GFR ####[address] [address] Lymphocytes/100 WBC (Bld) 27.0 % Normal 20.0-40.0 [facility] ([place]) Comment on above: Performed By: #### L AC, CBC, ADIFF, ANEU, BMP, MG, PHOS, GFR ####[address] [address] Monocyte, Absolute 0.8 10 3/mcL Normal 0.1-1.4 [facility] ([place]) Comment on above: Performed By: #### L AC, CBC, ADIFF, ANEU, BMP, MG, PHOS, GFR ####[address] [address] Monocytes/100 WBC (Bld) 8.4 % Normal 2.0-13.0 [facility] ([place]) Comment on above: Performed By: #### L AC, CBC, ADIFF, ANEU, BMP, MG, PHOS, GFR ####[address] [address] Neutrophils/100 WBC (Bld) 61.2 % Normal 50.0-75.0 [facility] ([place]) Comment on above: Performed By: #### L AC, CBC, ADIFF, ANEU, BMP, MG, PHOS, GFR ####[address] [address] .GFRon 12-27-2023 GFR >60 Normal [facility] ([place]) Comment on above: Result Comment: GFR Population mean for , Non- Americans Ages 20-29 = 116 mL/min/1.73 sq.m. Ages 30-39 = 107 mL/min/1.73 sq.m. Ages 40-49 = 99 mL/min/1.73 sq.m. Ages 50-59 = 93 mL/min/1.73 sq.m. Ages 60-69 = 85 mL/min/1.73 sq.m. Ages 70+ = 75 mL/min/1.73 sq.m. Chronic Kidney Disease: Less than 60 mL/min/1.73 square meters End Stage Renal Disease: Less than 15 mL/min/1.73 square meters Performed By: #### L AC, CBC, ADIFF, ANEU, BMP, MG, PHOS, GFR ####[address] [address] GFR Non- >60 Normal [facility] ([place]) Comment on above: Result Comment: GFR Population mean for , Non- Americans Ages 20-29 = 116 mL/min/1.73 sq.m. Ages 30-39 = 107 mL/min/1.73 sq.m. Ages 40-49 = 99 mL/min/1.73 sq.m. Ages 50-59 = 93 mL/min/1.73 sq.m. Ages 60-69 = 85 mL/min/1.73 sq.m. Ages 70+ = 75 mL/min/1.73 sq.m. Chronic Kidney Disease: Less than 60 mL/min/1.73 square meters End Stage Renal Disease: Less than 15 mL/min/1.73 square meters Performed By: #### L AC, CBC, ADIFF, ANEU, BMP, MG, PHOS, GFR ####[place] [address] .NEUABSon 12-27-2023 Neutrophil, Absolute 5.7 10 3/mcL Normal 2.3-8.1 [facility] ([place]) Comment on above: Performed By: #### L AC, CBC, ADIFF, ANEU, BMP, MG, PHOS, GFR ####[place] [address] BFCTon 12-27-2023 Body Fluid Source Shunt fluid Normal [facility] ([place]) Comment on above: Result Comment: Refe rence ranges have not been established for this body fluid. The test results must be integrated into the clinical context for interpretation. Performed By: #### B FCT ####[place] [address] Clarity BF Slightly Bloody Normal [facility] ([place]) Comment on above: Performed By: #### B FCT ####[place] [address] Color BF Lima Normal [facility] ([place]) Comment on above: Performed By: #### B FCT ####[place] [address] [place] [address] /mm3 Normal [facility] ([place]) Comment on above: Performed By: #### B FCT ####[place] [address] WBC BF 130 /mm3 Normal [facility] ([place]) Comment on above: Performed By: #### B FCT ####[place] [address] Cells Counted BF 100 Normal [facility] ([place]) Comment on above: Performed By: #### B FCT ####[place] [address] Lymphocytes/100 WBC (Bld) 9 % Normal [facility] ([place]) Comment on above: Performed By: #### B FCT ####[place] [address] Mononuclear cell % BF 3 % Normal [facility] ([place]) Comment on above: Performed By: #### B FCT ####[place] [address] Neutrophils/100 WBC (Bld) 88 % Normal [facility] ([place]) Comment on above: Performed By: #### B FCT ####[place] [address] Body Fluid Source Shunt fluid Normal [facility] ([place]) Comment on above: Result Comment: Refe rence ranges have not been established for this body fluid. The test results must be integrated into the clinical context for interpretation. Performed By: #### B FCT ####[place] [address] Clarity BF Hazy Normal [facility] ([place]) Comment on above: Performed By: #### B FCT ####[place] [address] Color BF Straw Normal [facility] ([place]) Comment on above: Performed By: #### B FCT ####[place] [address] RBC BF 9658 /mm3 Normal [facility] ([place]) Comment on above: Performed By: #### B FCT ####[place] [address] WBC BF 34 /mm3 Normal [facility] ([place]) Comment on above: Performed By: #### B FCT ####[place] [address] BMPon 12-27-2023 BUN/Creatinine Ratio 9.8 ratio Low 10.0-22.0 [facility] ([place]) Comment on above: Performed By: #### L AC, CBC, ADIFF, ANEU, BMP, MG, PHOS, GFR ####[place] [address] Calcium [Mass/Vol] 9.0 mg/dL Normal 8.7-10.4 [facility] ([place]) Comment on above: Performed By: #### L AC, CBC, ADIFF, ANEU, BMP, MG, PHOS, GFR ####[place] [id number] Chloride [Moles/Vol] 106 mmol/L Normal 98-110 [facility] ([place]) Comment on above: Performed By: #### L AC, CBC, ADIFF, ANEU, BMP, MG, PHOS, GFR ####[place] [address] CO2 [Moles/Vol] 31 mmol/L Normal 22-32 [facility] ([place]) Comment on above: Performed By: #### L AC, CBC, ADIFF, ANEU, BMP, MG, PHOS, GFR ####[place] [address] Creatinine [Mass/Vol] 0.92 mg/dL Normal 0.60-1.40 [facility] ([place]) Comment on above: Performed By: #### L AC, CBC, ADIFF, ANEU, BMP, MG, PHOS, GFR ####[place] [address] Electrolyte Balance 3.0 mEq/L Low 4.0-15.0 [facility] ([place]) Comment on above: Performed By: #### L AC, CBC, ADIFF, ANEU, BMP, MG, PHOS, GFR ####[place] [address] Glucose [Mass/Vol] 100 mg/dL Normal 70-110 [facility] ([place]) Comment on above: Performed By: #### L AC, CBC, ADIFF, ANEU, BMP, MG, PHOS, GFR ####[place] [address] Potassium [Moles/Vol] 3.8 mmol/L Normal 3.5-5.0 [facility] ([place]) Comment on above: Performed By: #### L AC, CBC, ADIFF, ANEU, BMP, MG, PHOS, GFR ####[place] [id number] Sodium [Moles/Vol] 140 mmol/L Normal 136-145 [facility] ([place]) Comment on above: Performed By: #### L AC, CBC, ADIFF, ANEU, BMP, MG, PHOS, GFR ####[place] [address] Urea nitrogen [Mass/Vol] 9.0 mg/dL Normal 8.0-22.0 [facility] ([place]) Comment on above: Performed By: #### L AC, CBC, ADIFF, ANEU, BMP, MG, PHOS, GFR ####[place] [address] CBCon 12-27-2023 Erythrocyte distribution width (RBC) [Ratio] 13.6 % Normal 11.5-15.5 [facility] ([place]) Comment on above: Performed By: #### L AC, CBC, ADIFF, ANEU, BMP, MG, PHOS, GFR ####[place] [address] Hematocrit (Bld) [Volume fraction] 34.2 % Low 40.0-52.0 [facility] ([place]) Comment on above: Performed By: #### L AC, CBC, ADIFF, ANEU, BMP, MG, PHOS, GFR ####[place] [address] Hgb 11.7 G/dL Low 13.0-17.5 [facility] ([place]) Comment on above: Performed By: #### L AC, CBC, ADIFF, ANEU, BMP, MG, PHOS, GFR ####[place] [address] MCH (RBC) [Entitic mass] 30.9 pg Normal 27.0-33.0 [facility] ([place]) Comment on above: Performed By: #### L AC, CBC, ADIFF, ANEU, BMP, MG, PHOS, GFR ####[place] [address] MCHC 34.2 G/dL Normal 32.0-36.0 [facility] ([place]) Comment on above: Performed By: #### L AC, CBC, ADIFF, ANEU, BMP, MG, PHOS, GFR ####[place] [address] MCV (RBC) [Entitic vol] 90.4 fL Normal 81.0-100.0 [facility] ([place]) Comment on above: Performed By: #### L AC, CBC, ADIFF, ANEU, BMP, MG, PHOS, GFR ####[place] [address] Platelet 273 10 3/mcL Normal 150-450 [facility] ([place]) Comment on above: Performed By: #### L AC, CBC, ADIFF, ANEU, BMP, MG, PHOS, GFR ####[place] [address] Platelet mean volume (Bld) [Entitic vol] 8.2 fL Normal 6.4-10.5 [facility] ([place]) Comment on above: Performed By: #### L AC, CBC, ADIFF, ANEU, BMP, MG, PHOS, GFR ####[place] [address] RBC 3.78 10 6/mcL Low 4.50-6.00 [facility] ([place]) Comment on above: Performed By: #### L AC, CBC, ADIFF, ANEU, BMP, MG, PHOS, GFR ####[place] [address] WBC 9.3 10 3/mcL Normal 4.5-10.8 [facility] ([place]) Comment on above: Performed By: #### L AC, CBC, ADIFF, ANEU, BMP, MG, PHOS, GFR ####[place] [address] GLUSFon 12-27-2023 GLU CSF Spec Shunt fluid Normal [facility] ([place]) Comment on above: Performed By: #### C BC, ADIFF, ANEU #### [place] [address] Glucose CSF 70 mg/dL Normal 40-70 [facility] ([place]) Comment on above: Performed By: #### C BC, ADIFF, ANEU #### [facility] [address] [place] [address] GLU CSF Spec Shunt fluid Normal [facility] ([place]) Comment on above: Order Comment: speci men received unlabeled Performed By: #### L ACSF, PROSF1, GLUSF ####[facility] [place] [address] Glucose CSF 55 mg/dL Normal 40-70 [facility] ([place]) Comment on above: Order Comment: speci men received unlabeled Performed By: #### L ACSF, PROSF1, GLUSF ####[facility] [place] [address] LABORATORYOrdered By: Julia Barragan on 12-27-2023 Appearance (Body fld) Slightly Bloody (12/27/23 9:54 PM) Normal Manual Heme SS Cells Counted Total (Unsp spec) [#] 62 1 Invalid Interpretation Code Manual Heme SS Color (Body fld) Lima (12/27/23 9:54 PM) Normal Manual Heme SS Eosinophils/100 WBC (Body fld) 2 % Invalid Interpretation Code Manual Heme SS Lymphocytes/100 WBC (Body fld) 24 % Invalid Interpretation Code Manual Heme SS Monocytes+Macrophages /100 WBC (Body fld) 6 % Invalid Interpretation Code Manual Heme SS Neutrophils/100 WBC (Body fld) 68 % Invalid Interpretation Code Manual Heme SS RBC (Body fld) [#/Vol] [address] 10*3/uL Invalid Interpretation Code Manual Heme SS Specimen source Nom (Body fld) Shunt fluid 9 (12/27/23 9:54 PM) Normal Manual Heme SS Comment on above: Interpretive Data: R eference ranges have not been established for this body fluid. The test results must be integrated into the clinical context for interpretation. WBC (Body fld) [#/Vol] 130 10*3/uL Invalid Interpretation Code Manual Heme SS LABORATORYOrdered By: Tayler Puri on 12-27-2023 GLU CSF Spec Shunt fluid (12/27/23 9:54 PM) Normal AH Chemistry S LAC Acid CSF Sp Shunt fluid (12/27/23 9:54 PM) Normal AH Chemistry S Prot CSF Spec Shunt fluid (12/27/23 9:54 PM) Normal AH Chemistry S LABORATORYOrdered By: [employer] on 12-27-2023 Glucose (CSF) [Mass/Vol] 70 mg/dL Normal 40 - 70 mg/dL ADM SS Lactate (CSF) [Moles/Vol] 2.4 mmol/L Normal 0.0 - 3.9 mmol/L ADM SS Protein (CSF) [Mass/Vol] 170.2 mg/dL High 8.0 - 32.0 mg/dL AH ADM SS Calcium [Mass/Vol] 9.0 mg/dL Normal 8.7 - 10. 4 mg/dL ADM SS Chloride [Moles/Vol] 106 mmol/L Normal 98 - 11 0 mEq/L ADM SS CO2 [Moles/Vol] 31 mmol/L Normal 22 - 32 mEq/L ADM SS Creatinine [Mass/Vol] 0.92 mg/dL Normal 0.60 - 1.40 mg/dL ADM SS Electrolyte Balance 3.0 mEq/L Low 4.0 - 15 .0 mEq/L ADM SS GFR/1.73 sq M.predicted among blacks MDRD (S/P/Bld) [Vol rate/Area] ml/min/1.73sqm Invalid Interpretation Code ADM SS Comment on above: Interpretive Data: GFR Population mean for , Non- Americans Ages 20-29 = 116 mL/min/1.73 sq.m. Ages 30-39 = 107 mL/min/1.73 sq.m. Ages 40-49 = 99 mL/min/1.73 sq.m. Ages 50-59 = 93 mL/min/1.73 sq.m. Ages 60-69 = 85 mL/min/1.73 sq.m. Ages 70+ = 75 mL/min/1.73 sq.m. Chronic Kidney Disease: Less than 60 mL/min/1.73 square meters End Stage Renal Disease: Less than 15 mL/min/1.73 square meters GFR/1.73 sq M.predicted among non-blacks MDRD (S/P/Bld) [Vol rate/Area] ml/min/1.73sqm Invalid Interpretation Code ADM SS Comment on above: Interpretive Data: GFR Population mean for , Non- Americans Ages 20-29 = 116 mL/min/1.73 sq.m. Ages 30-39 = 107 mL/min/1.73 sq.m. Ages 40-49 = 99 mL/min/1.73 sq.m. Ages 50-59 = 93 mL/min/1.73 sq.m. Ages 60-69 = 85 mL/min/1.73 sq.m. Ages 70+ = 75 mL/min/1.73 sq.m. Chronic Kidney Disease: Less than 60 mL/min/1.73 square meters End Stage Renal Disease: Less than 15 mL/min/1.73 square meters Glucose [Mass/Vol] 100 mg/dL Normal 70 - 110 mg/dL AH ADM SS Magnesium [Mass/Vol] 2.0 mg/dL Normal 1.6 - 2 .4 mg/dL AH ADM SS Phosphate [Mass/Vol] 3.8 mg/dL Normal 2.4 - 5 .1 mg/dL AH ADM SS Comment on above: Interpretive Data: * *Note - New Reference Range in effect 20 Potassium [Moles/Vol] 3.8 mmol/L Normal 3.5 - 5.0 mEq/L AH ADM SS Sodium [Moles/Vol] 140 mmol/L Normal 136 - 145 mEq/L AH ADM SS Urea nitrogen [Mass/Vol] 9.0 mg/dL Normal 8.0 - 22.0 mg/dL AH ADM SS Urea nitrogen/Creatinine [Mass ratio] 9.8 ratio Low 10.0 - 22.0 ratio AH ADM SS LABORATORYOrdered By: Liu New on 12-27-2023 Lactic Acid Lvl 1.2 mmol/L Normal 0.2 - 2.0 mmol/L Main Rapid Comm SS LACon 12-27-2023 Lactic Acid Lvl 1.2 mmol/L Normal 0.2-2.0 [facility] ([place]) Comment on above: Order Comment: insuf ficient quantity for testing - 12/27/2023 04:37:58 EDT Performed By: #### L AC, CBC, ADIFF, ANEU, BMP, MG, PHOS, GFR ####[facility] [place] [address] LACSFon 12-27-2023 Lactic Acid CSF 2.4 mmol/L Normal 0.0-3.9 [facility] ([place]) Comment on above: Performed By: #### C BC, ADIFF, ANEU #### [facility] [address] [place] [address] LAC Acid CSF Sp Shunt fluid Normal [facility] ([place]) Comment on above: Performed By: #### C BC, ADIFF, ANEU #### [address] [address] LAC Acid CSF Sp Shunt fluid Normal [facility] ([place]) Comment on above: Order Comment: speci men received unlabeled Performed By: #### L ACSF, PROSF1, GLUSF ####[address] [address] Lactic Acid CSF 2.7 mmol/L Normal 0.0-3.9 [facility] ([place]) Comment on above: Order Comment: speci men received unlabeled Performed By: #### L ACSF, PROSF1, GLUSF ####[address] [address] MGon 12-27-2023 Magnesium [Mass/Vol] 2.0 mg/dL Normal 1.6-2.4 [facility] ([place]) Comment on above: Performed By: #### L AC, CBC, ADIFF, ANEU, BMP, MG, PHOS, GFR ####[address] [address] No Panel Informationon 12-26 Culture CSF No growth at 48 hours. A [facility] Work Phone: GS Rare Mononuclear munira ls Rare Polymorphonuclear cells No organisms seen. [facility] Work Phone: PHOSon 12-27-2023 Phosphate [Mass/Vol] 3.8 mg/dL Normal 2.4-5.1 [facility] ([place]) Comment on above: Result Comment: No te - New Reference Range in effect 20 Performed By: #### L AC, CBC, ADIFF, ANEU, BMP, MG, PHOS, GFR ####[address] [address] PROSFon 12-27-2023 Prot CSF Spec Shunt fluid Normal [facility] ([place]) Comment on above: Performed By: #### C BC, ADIFF, ANEU #### [facility] [address] [place] [address] Protein CSF 170.2 mg/dL High 8.0-32.0 [facility] ([place]) Comment on above: Performed By: #### C SRAVANI HERNDON, ANEU #### [address] [address] Prot CSF Spec Shunt fluid Normal [facility] ([place]) Comment on above: Order Comment: speci men received unlabeled Performed By: #### L ACSF, PROSF1, GLUSF ####[address] [address] Protein CSF 129.6 mg/dL High 8.0-32.0 [facility] ([place]) Comment on above: Order Comment: speci men received unlabeled Performed By: #### L ACSF, PROSF1, GLUSF ####[address] [address] .Auto Diffon 12-26-2023 Basophil, Absolute 0.1 10 3/mcL Normal 0.0-0.3 [facility] ([place]) Comment on above: Performed By: #### C SRAVANI HERNDON, ANEU #### [address] [address] Basophils/100 WBC (Bld) 0.7 % Normal 0.0-2.5 [facility] ([place]) Comment on above: Performed By: #### C SRAVANI HERNDON, ANEU #### [address] [address] Eosinophil, Absolute 0.1 10 3/mcL Normal 0.0-0.7 [facility] ([place]) Comment on above: Performed By: #### C SRAVANI HERNDON, ANEU #### [address] [address] Eosinophils/100 WBC (Bld) 0.5 % Normal 0.0-6.0 [facility] ([place]) Comment on above: Performed By: #### C SRAVANI HERNDON, ANEU #### [address] [address] Lymphocyte, Absolute 2.3 10 3/mcL Normal 0.9-4.3 [facility] ([place]) Comment on above: Performed By: #### C BC, ADIFF, ANEU #### [address] [address] Lymphocytes/100 WBC (Bld) 22.8 % Normal 20.0-40.0 [facility] ([place]) Comment on above: Performed By: #### C BC, ADIFF, ANEU #### [address] [address] Monocyte, Absolute 0.6 10 3/mcL Normal 0.1-1.4 [facility] ([place]) Comment on above: Performed By: #### C BC, ADIFF, ANEU #### [address] [address] Monocytes/100 WBC (Bld) 6.5 % Normal 2.0-13.0 [facility] ([place]) Comment on above: Performed By: #### C BC, ADIFF, ANEU #### [address] [address] Neutrophils/100 WBC (Bld) 69.5 % Normal 50.0-75.0 [facility] ([place]) Comment on above: Performed By: #### C BC, ADIFF, ANEU #### [address] [address] .GFRon 12-26-2023 GFR >60 Normal [facility] ([place]) Comment on above: Result Comment: GFR Population mean for , Non- Americans Ages 20-29 = 116 mL/min/1.73 sq.m. Ages 30-39 = 107 mL/min/1.73 sq.m. Ages 40-49 = 99 mL/min/1.73 sq.m. Ages 50-59 = 93 mL/min/1.73 sq.m. Ages 60-69 = 85 mL/min/1.73 sq.m. Ages 70+ = 75 mL/min/1.73 sq.m. Chronic Kidney Disease: Less than 60 mL/min/1.73 square meters End Stage Renal Disease: Less than 15 mL/min/1.73 square meters Performed By: #### C BC, ADIFF, ANEU, BMP, GFR ####[address] [address] GFR Non- >60 Normal [facility] ([place]) Comment on above: Result Comment: GFR Population mean for , Non- Americans Ages 20-29 = 116 mL/min/1.73 sq.m. Ages 30-39 = 107 mL/min/1.73 sq.m. Ages 40-49 = 99 mL/min/1.73 sq.m. Ages 50-59 = 93 mL/min/1.73 sq.m. Ages 60-69 = 85 mL/min/1.73 sq.m. Ages 70+ = 75 mL/min/1.73 sq.m. Chronic Kidney Disease: Less than 60 mL/min/1.73 square meters End Stage Renal Disease: Less than 15 mL/min/1.73 square meters Performed By: #### C SRAVANI HERNDON, ANEU, BMP, GFR ####[address] [address] .NEUABSon 12-26-2023 Neutrophil, Absolute 6.9 10 3/mcL Normal 2.3-8.1 [facility] ([place]) Comment on above: Performed By: #### C SRAVANI HERNDON, ANEU #### [address] [address] BFCTon 12-26-2023 Cells Counted BF 100 Normal [facility] ([place]) Comment on above: Performed By: #### Elizabeth BCROBBYIFF, ANEU #### [address] [address] Eosinophils/100 WBC (Bld) 1 % Normal [facility] ([place]) Comment on above: Performed By: #### C BC ADIFF, ANEU #### [address] [address] Lymphocytes/100 WBC (Bld) 4 % Normal [facility] ([place]) Comment on above: Performed By: #### Elizabeth BCSRAVANI, ANEU #### [address] [address] Neutrophils/100 WBC (Bld) 95 % Normal [facility] ([place]) Comment on above: Performed By: #### Elizabeth BCROBBYIFF, ANEU #### [address] [address] BMPon 12-26-2023 BUN/Creatinine Ratio 12.2 ratio Normal 10.0-22.0 [facility] ([place]) Comment on above: Performed By: #### C SRAVANI HERNDON, LUIGI #### [address] [address] Calcium [Mass/Vol] 8.5 mg/dL Low 8.7-10.4 [facility] ([place]) Comment on above: Performed By: #### C SRAVANI HERNDON, ANEU #### [address] [address] Chloride [Moles/Vol] 110 mmol/L Normal 98-110 [facility] ([place]) Comment on above: Performed By: #### C SRAVANI HERNDON, ANEU #### [address] [address] CO2 [Moles/Vol] 26 mmol/L Normal 22-32 [facility] ([place]) Comment on above: Performed By: #### C SRAVANI HERNDON, ANEU #### [address] [address] Creatinine [Mass/Vol] 0.90 mg/dL Normal 0.60-1.40 [facility] ([place]) Comment on above: Performed By: #### C SRAVANI HERNDON, ANEU #### [address] [address] Electrolyte Balance 3.0 mEq/L Low 4.0-15.0 [facility] ([place]) Comment on above: Performed By: #### C SRAVANI HERNDON, ANEU #### [address] [address] Glucose [Mass/Vol] 115 mg/dL High 70-110 [facility] ([place]) Comment on above: Performed By: #### SRAVANI CAMILO, ANEU #### [address] [address] Potassium [Moles/Vol] 3.8 mmol/L Normal 3.5-5.0 [facility] ([place]) Comment on above: Performed By: #### SRAVANI CAMILO, ANEU #### [address] [address] Sodium [Moles/Vol] 139 mmol/L Normal 136-145 [facility] ([place]) Comment on above: Performed By: #### C SRAVANI HERNDON, ANEU #### [address] [address] Urea nitrogen [Mass/Vol] 11.0 mg/dL Normal 8.0-22.0 [facility] ([place]) Comment on above: Performed By: #### C SRAVANI HERNDON, ANEU #### [address] [address] CBCon 12-26-2023 Erythrocyte distribution width (RBC) [Ratio] 13.4 % Normal 11.5-15.5 [facility] ([place]) Comment on above: Performed By: #### C SRAVANI HERNDON, ANEU #### [address] [address] Hematocrit (Bld) [Volume fraction] 29.3 % Low 40.0-52.0 [facility] ([place]) Comment on above: Performed By: #### C SRAVANI HERNDON, ANEU #### [address] [address] Hgb 10.1 G/dL Low 13.0-17.5 [facility] ([place]) Comment on above: Performed By: #### C SRAVANI HERNDON, ANEU #### [address] [address] MCH (RBC) [Entitic mass] 30.8 pg Normal 27.0-33.0 [facility] ([place]) Comment on above: Performed By: #### C SRAVANI HERNDON, ANEU #### [address] [address] MCHC 34.5 G/dL Normal 32.0-36.0 [facility] ([place]) Comment on above: Performed By: #### C SRAVANI HERNDON, ANEU #### [address] [address] MCV (RBC) [Entitic vol] 89.2 fL Normal 81.0-100.0 [facility] ([place]) Comment on above: Performed By: #### C BC, ADIFF, ANEU #### [facility] [address] [place] [address] Platelet 257 10 3/mcL Normal 150-450 [facility] ([place]) Comment on above: Performed By: #### C BC, ADIFF, ANEU #### [facility] [address] [place] [address] Platelet mean volume (Bld) [Entitic vol] 8.0 fL Normal 6.4-10.5 [facility] ([place]) Comment on above: Performed By: #### C BC, ADIFF, ANEU #### [facility] [address] [place] [address] RBC 3.28 10 6/mcL Low 4.50-6.00 [facility] ([place]) Comment on above: Performed By: #### C BC, ADIFF, ANEU #### [address] [address] WBC 9.9 10 3/mcL Normal 4.5-10.8 [facility] ([place]) Comment on above: Performed By: #### C BC, ADIFF, ANEU #### [address] [address] LABORATORYOrdered By: Tayler Puri on 12-26-2023 Appearance (Body fld) Hazy (12/26/23 11:43 PM) Normal Manual Heme SS Cells Counted Total (Unsp spec) [#] 100 1 Invalid Interpretation Code Manual Heme SS Color (Body fld) Straw (12/26/23 11:43 PM) Normal Manual Heme SS Lymphocytes/100 WBC (Body fld) 9 % Invalid Interpretation Code Manual Heme SS Monocytes+Macrophages /100 WBC (Body fld) 3 % Invalid Interpretation Code Manual Heme SS Neutrophils/100 WBC (Body fld) 88 % Invalid Interpretation Code Manual Heme SS RBC (Body fld) [#/Vol] 9658 10*3/uL Invalid Interpretation Code Manual Heme SS Specimen source Nom (Body fld) Shunt fluid 10 (12/26/23 11:43 PM) Normal Manual Heme SS Comment on above: Interpretive Data: R eference ranges have not been established for this body fluid. The test results must be integrated into the clinical context for interpretation. WBC (Body fld) [#/Vol] 34 10*3/uL Invalid Interpretation Code AH Manual Heme SS LABORATORYOrdered By: Julia Barragan on 12-26-2023 GLU CSF Spec Shunt fluid (12/26/23 11:43 PM) Normal Chemistry S LAC Acid CSF Sp Shunt fluid (12/26/23 11:43 PM) Normal AH Chemistry S Prot CSF Spec Shunt fluid (12/26/23 11:43 PM) Normal AH Chemistry S LABORATORYOrdered By: SYSTEM SYSTEM on 12-26-2023 Glucose (CSF) [Mass/Vol] 55 mg/dL Normal 40 - 70 mg/dL AH ADM SS Lactate (CSF) [Moles/Vol] 2.7 mmol/L Normal 0.0 - 3.9 mmol/L AH ADM SS Protein (CSF) [Mass/Vol] 129.6 mg/dL High 8.0 - 32.0 mg/dL AH ADM SS No Panel Informationon 12-25 Culture Anaerobic No aerobes or anaero bes isolated at 7 days. [facility] Work Phone: Culture CSF No growth at 48 hours. [facility] Work Phone: GS Sedimented 1+ White Blood Cells 1+ Red Blood Cells No organisms seen. [facility] Work Phone: .Auto Diffon 12-25-2023 Basophil, Absolute 0.0 10 3/mcL Normal 0.0-0.3 [facility] ([place]) Comment on above: Performed By: #### C SRAVANI HERNDON ANEU #### [address] [address] Basophils/100 WBC (Bld) 0.3 % Normal 0.0-2.5 [facility] ([place]) Comment on above: Performed By: #### C SRAVANI HERNDON ANEU #### [address] [address] Eosinophil, Absolute 0.0 10 3/mcL Normal 0.0-0.7 [facility] ([place]) Comment on above: Performed By: #### C SRAVANI HERNDON ANEU #### [address] [address] Eosinophils/100 WBC (Bld) 0.1 % Normal 0.0-6.0 [facility] ([place]) Comment on above: Performed By: #### C SRAVANI HERNDON, ANEU #### [address] [address] Lymphocyte, Absolute 1.8 10 3/mcL Normal 0.9-4.3 [facility] ([place]) Comment on above: Performed By: #### SRAVANI CAMILO, ANEU #### [address] [address] Lymphocytes/100 WBC (Bld) 14.4 % Low 20.0-40.0 [facility] ([place]) Comment on above: Performed By: #### SRAVANI CAMILO, ANEU #### [address] [address] Monocyte, Absolute 0.5 10 3/mcL Normal 0.1-1.4 [facility] ([place]) Comment on above: Performed By: #### SRAVANI CAMILO, ANEU #### [address] [address] Monocytes/100 WBC (Bld) 4.1 % Normal 2.0-13.0 [facility] ([place]) Comment on above: Performed By: #### SRAVANI CAMILO, ANEU #### [address] [address] Neutrophils/100 WBC (Bld) 81.1 % High 50.0-75.0 [facility] ([place]) Comment on above: Performed By: #### SRAVANI CAMILO, ANEU #### [address] [address] .GFRon 12-25-2023 GFR >60 Normal [facility] ([place]) Comment on above: Result Comment: GFR Population mean for , Non- Americans Ages 20-29 = 116 mL/min/1.73 sq.m. Ages 30-39 = 107 mL/min/1.73 sq.m. Ages 40-49 = 99 mL/min/1.73 sq.m. Ages 50-59 = 93 mL/min/1.73 sq.m. Ages 60-69 = 85 mL/min/1.73 sq.m. Ages 70+ = 75 mL/min/1.73 sq.m. Chronic Kidney Disease: Less than 60 mL/min/1.73 square meters End Stage Renal Disease: Less than 15 mL/min/1.73 square meters Performed By: #### H H, BMP, GFR ####[place] [address] GFR Non- >60 Normal [facility] ([place]) Comment on above: Result Comment: GFR Population mean for , Non- Americans Ages 20-29 = 116 mL/min/1.73 sq.m. Ages 30-39 = 107 mL/min/1.73 sq.m. Ages 40-49 = 99 mL/min/1.73 sq.m. Ages 50-59 = 93 mL/min/1.73 sq.m. Ages 60-69 = 85 mL/min/1.73 sq.m. Ages 70+ = 75 mL/min/1.73 sq.m. Chronic Kidney Disease: Less than 60 mL/min/1.73 square meters End Stage Renal Disease: Less than 15 mL/min/1.73 square meters Performed By: #### H [place], BMP, GFR ####[place] [address] .NEUABSon 12-25-2023 Neutrophil, Absolute 10.3 10 3/mcL High 2.3-8.1 [facility] ([place]) Comment on above: Performed By: #### C SRAVANI HERNDON ANEU #### [place] [address] BFCTon 12-25-2023 Body Fluid Source Shunt fluid Normal [facility] ([place]) Comment on above: Result Comment: Refe rence ranges have not been established for this body fluid. The test results must be integrated into the clinical context for interpretation. Performed By: #### SRAVANI CAMILO ANEU #### [place] [address] Clarity BF Slightly Bloody Normal [facility] ([place]) Comment on above: Performed By: #### C SRAVANI HERNDON ANEU #### [address] [address] Color BF Straw Normal [facility] ([place]) Comment on above: Performed By: #### C BCSRAVANI, ANEU #### [address] [address] [place] [address] /mm3 Normal [facility] ([place]) Comment on above: Performed By: #### C BCSRAVANI, ANEU #### [address] [address] WBC BF 55 /mm3 Normal [facility] ([place]) Comment on above: Performed By: #### C BCSRAVANI, ANEU #### [address] [address] BMPon 12-25-2023 BUN/Creatinine Ratio 13.6 ratio Normal 10.0-22.0 [facility] ([place]) Comment on above: Performed By: #### H H, BMP, GFR ####[place] [address] Calcium [Mass/Vol] 8.9 mg/dL Normal 8.7-10.4 [facility] ([place]) Comment on above: Performed By: #### H H, BMP, GFR ####[place] [address] Chloride [Moles/Vol] 107 mmol/L Normal 98-110 [facility] ([place]) Comment on above: Performed By: #### H H, BMP, GFR ####[place] [address] CO2 [Moles/Vol] 24 mmol/L Normal 22-32 [facility] ([place]) Comment on above: Performed By: #### H H, BMP, GFR ####[place] [address] Creatinine [Mass/Vol] 0.88 mg/dL Normal 0.60-1.40 [facility] ([place]) Comment on above: Performed By: #### H H, BMP, GFR ####[place] [address] Electrolyte Balance 8.0 mEq/L Normal 4.0-15.0 [facility] ([place]) Comment on above: Performed By: #### H H, BMP, GFR ####[address] [address] Glucose [Mass/Vol] 116 mg/dL High 70-110 [facility] ([place]) Comment on above: Performed By: #### H H, BMP, GFR ####[address] [address] Potassium [Moles/Vol] 3.8 mmol/L Normal 3.5-5.0 [facility] ([place]) Comment on above: Performed By: #### H H, BMP, GFR ####[place] [address] Sodium [Moles/Vol] 139 mmol/L Normal 136-145 [facility] ([place]) Comment on above: Performed By: #### H H, BMP, GFR ####[place] [address] Urea nitrogen [Mass/Vol] 12.0 mg/dL Normal 8.0-22.0 [facility] ([place]) Comment on above: Performed By: #### H H, BMP, GFR ####[place] [id number] CBCon 12-25-2023 Erythrocyte distribution width (RBC) [Ratio] 13.5 % Normal 11.5-15.5 [facility] ([place]) Comment on above: Performed By: #### C SRAVANI HERNDON ANEU #### [address] [address] Hematocrit (Bld) [Volume fraction] 41.3 % Normal 40.0-52.0 [facility] ([place]) Comment on above: Performed By: #### SRAVANI CAMILO ANEU #### [address] [address] Hgb 13.9 G/dL Normal 13.0-17.5 [facility] ([place]) Comment on above: Performed By: #### SRAVANI CAMILO ANEU #### [address] [address] MCH (RBC) [Entitic mass] 30.2 pg Normal 27.0-33.0 [facility] ([place]) Comment on above: Performed By: #### SRAVANI CAMILO ANEU #### [place] [address] MCHC 33.6 G/dL Normal 32.0-36.0 [facility] ([place]) Comment on above: Performed By: #### SRAVANI CAMILO ANEU #### [place] [address] MCV (RBC) [Entitic vol] 89.9 fL Normal 81.0-100.0 [facility] ([place]) Comment on above: Performed By: #### SRAVANI CAMILO ANEU #### [place] [address] Platelet 308 10 3/mcL Normal 150-450 [facility] ([place]) Comment on above: Performed By: #### SRAVANI CAMILO ANEU #### [place] [address] Platelet mean volume (Bld) [Entitic vol] 9.0 fL Normal 6.4-10.5 [facility] ([place]) Comment on above: Performed By: #### SRAVANI CAMILO ANEU #### [place] [address] RBC 4.59 10 6/mcL Normal 4.50-6.00 [facility] ([place]) Comment on above: Performed By: #### SRAVANI CAMILO ANEU #### [place] [address] WBC 12.7 10 3/mcL High 4.5-10.8 [facility] ([place]) Comment on above: Performed By: #### SRAVANI CAMILO ANEU #### [place] [address] GLUSFon 12-25-2023 GLU CSF Spec Shunt fluid Normal [facility] ([place]) Comment on above: Performed By: #### SRAVANI CAMILO ANEU #### [place] [address] Glucose CSF 63 mg/dL Normal 40-70 [facility] ([place]) Comment on above: Performed By: #### C BC, ADSOULEYMANE, ANEU #### [place] [address] HHon 12-25-2023 Hematocrit (Bld) [Volume fraction] 35.7 % Low 40.0-52.0 [facility] ([place]) Comment on above: Performed By: #### H H, BMP, GFR ####[place] [address] Hgb 12.1 G/dL Low 13.0-17.5 [facility] ([place]) Comment on above: Performed By: #### H H, BMP, GFR ####[place] [address] LABORATORYOrdered By: Scott Smith on 12-25-2023 Lactic Acid Lvl 2.7 mmol/L High 0.2 - 2.0 mmol/L Main Rapid Comm SS Lactic Acid Lvl 3.4 mmol/L High 0.2 - 2.0 mmol/L Chemistry S LABORATORYOrdered By: Tayler Puri on 12-25-2023 Eosinophils/100 WBC (Body fld) 1 % Invalid Interpretation Code Manual Heme SS LABORATORYOrdered By: SYSTEM SYSTEM on 12-25-2023 Troponin I.cardiac DL <= 0.01 ng/mL [Mass/Vol] 7 ng/L Normal 0 - 54 ng/L ADM SS Comment on above: Interpretive Data: High Sensitive Troponin I Reference Ranges: Female: 0-34 ng/L Male: 0-54 ng/L Testing performed on [employer] IM analyzer using direct chemiluminescent technology. LACon 12-25-2023 Lactic Acid Lvl 2.7 mmol/L High 0.2-2.0 [facility] ([place]) Comment on above: Order Comment: Order ed secondary to Lactic Acid result greater than or equal to 2.0 Performed By: #### L AC ####[place] [address] Lactic Acid Lvl 3.4 mmol/L High 0.2-2.0 [facility] ([place]) Comment on above: Performed By: #### L TASHA BA ####[address] [address] LACSFon 12-25-2023 LAC Acid CSF Sp Shunt fluid Normal [facility] ([place]) Comment on above: Performed By: #### SRAVANI CAMILO ANEU #### [address] [address] Lactic Acid CSF 2.8 mmol/L Normal 0.0-3.9 [facility] ([place]) Comment on above: Performed By: #### C SRAVANI HERNDON ANEU #### [address] [address] No Panel Informationon 12-24 Culture Anaerobic No aerobes or anaero bes isolated at 7 days. [facility] Work Phone: Culture CSF No growth at 48 hours. [facility] Work Phone: GS No organisms seen. [facility] Work Phone: PROSFon 12-25-2023 Prot CSF Spec Shunt fluid Normal [facility] ([place]) Comment on above: Performed By: #### SRAVANI CAMILO ANEU #### [address] [address] Protein CSF 236.6 mg/dL High 8.0-32.0 [facility] ([place]) Comment on above: Performed By: #### SRAVANI CAMILO ANEU #### [place] [address] TROPHSon 12-25-2023 High Sensitivity Troponin I 7 ng/L Normal 0-54 [facility] ([place]) Comment on above: Result Comment: High Sensitive Troponin I Reference Ranges: Female: 0-34 ng/L Male: 0-54 ng/L Testing performed on [employer] analyzer using direct chemiluminescent technology. Performed By: #### TASHA AGUILAR ####[address] [address] No Panel Informationon 12-23 Culture Wound Deep Panel No aerobes or anaerobes isolated at 7 days. [facility] Work Phone: GS No organisms seen. [facility] Work Phone: XR FLUORO < 1HR TECH TIMEon 12-24-2023 XR FLUORO < 1HR TECH TIME ORIGINAL EXAMINATION: SPOT FLUOROSCOPIC IMAGES 12/24/2023 4:37 pm TECHNIQUE: Fluoroscopy was provided by the radiology department for procedure. Radiologist was not present during examination. FLUOROSCOPY DOSE AND TYPE: Radiation Exposure Index: Kerma mGy, 72.91 COMPARISON: None HISTORY: ORDERING SYSTEM PROVIDED HISTORY: Reason for Exam: lumbar wound infection Intraprocedural imaging. FINDINGS: Spot intraoperative images are obtained demonstrating surgical intervention in the region of the lumbar spine. Detail is limited. Please see operative report for details. IMPRESSION: Intraprocedural fluoroscopic spot images as above. See separate procedure report for more information. Interpreted by: Karie Curran MD Preliminary Report By: Karie Curran MD Electronically signed By Karie Curran MD Dictated Date: 12/24/2023 4:51:52 PM Prelim Date: 12/24/2023 4:52:19 PM Sign Date: 12/24/2023 4:52:19 PM Ordering Provider: MARINA Zayas [facility] ([place]) .Auto Diffon 12-23-2023 Basophil, Absolute 0.0 10 3/mcL Normal 0.0-0.3 [facility]) Comment on above: Performed By: #### C BC, ADIFF, ANEU, BMP, GFR ####[address] [address] Basophils/100 WBC (Bld) 0.4 % Normal 0.0-2.5 [facility] ([place]) Comment on above: Performed By: #### C BC, ADIFF, ANEU, BMP, GFR ####[place] [id number] [place] [address] Eosinophil, Absolute 0.2 10 3/mcL Normal 0.0-0.7 [facility] ([place]) Comment on above: Performed By: #### C BC, ADIFF, ANEU, BMP, GFR ####[place] [address] [address] [place] [address] Eosinophils/100 WBC (Bld) 2.3 % Normal 0.0-6.0 [facility]) Comment on above: Performed By: #### C BC, ADIFF, ANEU, BMP, GFR ####[address] [address] Lymphocyte, Absolute 2.2 10 3/mcL Normal 0.9-4.3 [facility] ([place]) Comment on above: Performed By: #### C BC, ADIFF, ANEU, BMP, GFR ####[address] [address] Lymphocytes/100 WBC (Bld) 31.1 % Normal 20.0-40.0 [facility] ([place]) Comment on above: Performed By: #### C BC, ADIFF, ANEU, BMP, GFR ####[address] [address] Monocyte, Absolute 0.5 10 3/mcL Normal 0.1-1.4 [facility] ([place]) Comment on above: Performed By: #### C BC, ADIFF, ANEU, BMP, GFR ####[address] [address] Monocytes/100 WBC (Bld) 6.7 % Normal 2.0-13.0 [facility] ([place]) Comment on above: Performed By: #### C BC, ADIFF, ANEU, BMP, GFR ####[address] [address] Neutrophils/100 WBC (Bld) 59.5 % Normal 50.0-75.0 [facility] ([place]) Comment on above: Performed By: #### C BC, ADIFF, ANEU, BMP, GFR ####[address] [address] .GFRon 12-23-2023 GFR Non- >60 Normal [facility] ([place]) Comment on above: Result Comment: GFR Population mean for , Non- Americans Ages 20-29 = 116 mL/min/1.73 sq.m. Ages 30-39 = 107 mL/min/1.73 sq.m. Ages 40-49 = 99 mL/min/1.73 sq.m. Ages 50-59 = 93 mL/min/1.73 sq.m. Ages 60-69 = 85 mL/min/1.73 sq.m. Ages 70+ = 75 mL/min/1.73 sq.m. Chronic Kidney Disease: Less than 60 mL/min/1.73 square meters End Stage Renal Disease: Less than 15 mL/min/1.73 square meters Performed By: #### C BC, ADIFF, ANEU, BMP, GFR ####[place] [address] GFR >60 Normal [facility] ([place]) Comment on above: Result Comment: GFR Population mean for , Non- Americans Ages 20-29 = 116 mL/min/1.73 sq.m. Ages 30-39 = 107 mL/min/1.73 sq.m. Ages 40-49 = 99 mL/min/1.73 sq.m. Ages 50-59 = 93 mL/min/1.73 sq.m. Ages 60-69 = 85 mL/min/1.73 sq.m. Ages 70+ = 75 mL/min/1.73 sq.m. Chronic Kidney Disease: Less than 60 mL/min/1.73 square meters End Stage Renal Disease: Less than 15 mL/min/1.73 square meters Performed By: #### C BC, ADIFF, ANEU, BMP, GFR ####[place] [address] .NEUABSon 12-23-2023 Neutrophil, Absolute 4.2 10 3/mcL Normal 2.3-8.1 [facility] ([place]) Comment on above: Performed By: #### C BC, ADIFF, ANEU, BMP, GFR ####[place] [address] APTTon 12-23-2023 aPTT Coag (Bld) [Time] 31.8 s Normal 25.0-35.0 [facility] ([place]) Comment on above: Result Comment: For Heparin anticoagulation therapy, the recommended therapeutic range is: 54-77 seconds (APTT Correlation with Anti-Xa therapeutic range of 0.3-0.7 units/ml). PLEASE REFERENCE THE PHARMACY PROTOCOL FOR DOSING. Performed By: #### P LT, FIB, PRO ####[place] [id number] Heparin dose (APTT) None Normal [facility] ([place]) Comment on above: Performed By: #### P LT, FIB, PRO ####[place] [address] BMPon 12-23-2023 BUN/Creatinine Ratio 12.1 ratio Normal 10.0-22.0 [facility] ([place]) Comment on above: Performed By: #### C BC, ADIFF, ANEU, BMP, GFR ####[place] [address] Calcium [Mass/Vol] 9.1 mg/dL Normal 8.7-10.4 [facility] ([place]) Comment on above: Performed By: #### C BC, ADIFF, ANEU, BMP, GFR ####[place] [address] Chloride [Moles/Vol] 103 mmol/L Normal 98-110 [facility] ([place]) Comment on above: Performed By: #### C BC, ADIFF, ANEU, BMP, GFR ####[place] [address] CO2 [Moles/Vol] 30 mmol/L Normal 22-32 [facility] ([place]) Comment on above: Performed By: #### C BC, ADIFF, ANEU, BMP, GFR ####[place] [address] Creatinine [Mass/Vol] 0.99 mg/dL Normal 0.60-1.40 [facility] ([place]) Comment on above: Performed By: #### C BC, ADIFF, ANEU, BMP, GFR ####[place] [address] Electrolyte Balance 3.0 mEq/L Low 4.0-15.0 [facility] ([place]) Comment on above: Performed By: #### C BC, ADIFF, ANEU, BMP, GFR ####[place] [id number] Glucose [Mass/Vol] 106 mg/dL Normal 70-110 [facility] ([place]) Comment on above: Performed By: #### C BC, ADIFF, ANEU, BMP, GFR ####[place] [address] Potassium [Moles/Vol] 4.3 mmol/L Normal 3.5-5.0 [facility] ([place]) Comment on above: Performed By: #### C BC, ADIFF, ANEU, BMP, GFR ####[place] [address] Sodium [Moles/Vol] 136 mmol/L Normal 136-145 [facility] ([place]) Comment on above: Performed By: #### C BC, ADIFF, ANEU, BMP, GFR ####[place] [address] Urea nitrogen [Mass/Vol] 12.0 mg/dL Normal 8.0-22.0 [facility] ([place]) Comment on above: Performed By: #### C BC, ADIFF, ANEU, BMP, GFR ####[place] [address] CBCon 12-23-2023 Erythrocyte distribution width (RBC) [Ratio] 13.7 % Normal 11.5-15.5 [facility] ([place]) Comment on above: Performed By: #### C BC, ADIFF, ANEU, BMP, GFR ####[place] [address] Hematocrit (Bld) [Volume fraction] 40.2 % Normal 40.0-52.0 [facility] ([place]) Comment on above: Performed By: #### C BC, ADIFF, ANEU, BMP, GFR ####[place] [address] Hgb 13.6 G/dL Normal 13.0-17.5 [facility] ([place]) Comment on above: Performed By: #### C BC, ADIFF, ANEU, BMP, GFR ####[place] [address] MCH (RBC) [Entitic mass] 30.4 pg Normal 27.0-33.0 [facility] ([place]) Comment on above: Performed By: #### C BC, ADIFF, ANEU, BMP, GFR ####[place] [address] MCHC 33.9 G/dL Normal 32.0-36.0 [facility] ([place]) Comment on above: Performed By: #### C BC, ADIFF, ANEU, BMP, GFR ####[place] [address] MCV (RBC) [Entitic vol] 89.7 fL Normal 81.0-100.0 [facility] ([place]) Comment on above: Performed By: #### C BC, ADIFF, ANEU, BMP, GFR ####[place] [address] Platelet 287 10 3/mcL Normal 150-450 [facility] ([place]) Comment on above: Performed By: #### C BC, ADIFF, ANEU, BMP, GFR ####[place] [address] Platelet mean volume (Bld) [Entitic vol] 8.2 fL Normal 6.4-10.5 [facility] ([place]) Comment on above: Performed By: #### C BC, ADIFF, ANEU, BMP, GFR ####[place] [address] RBC 4.48 10 6/mcL Low 4.50-6.00 [facility] ([place]) Comment on above: Performed By: #### C BC, ADIFF, ANEU, BMP, GFR ####[place] [address] WBC 7.0 10 3/mcL Normal 4.5-10.8 [facility] ([place]) Comment on above: Performed By: #### C BC, ADIFF, ANEU, BMP, GFR ####[place] [address] FIBon 12-23-2023 Fibrinogen 691 mg/dL High 250-560 [facility] ([place]) Comment on above: Performed By: #### P LT, FIB, PRO ####[place] [address] LABORATORYOrdered By: Lefty Westfall on 12-23-2023 aPTT Coag (Bld) [Time] 31.8 s Normal 25.0 - 35.0 seconds [facility] Comment on above: Interpretive Data: F or Heparin anticoagulation therapy, the recommended therapeutic range is: 54-77 seconds (APTT Correlation with Anti-Xa therapeutic range of 0.3-0.7 units/ml). PLEASE REFERENCE THE PHARMACY PROTOCOL FOR DOSING. Fibrinogen 691 mg/dL High 250 - 560 mg/dL [facility] Heparin dose (APTT) None Normal AH Coagulation S PT Coag (PPP) [Time] 11.4 s Normal 9.0 - 1 4.4 seconds [facility] Comment on above: Interpretive Data: E ffective 01/11/08, Protime results may be affected by some antibiotics (i.e. Ciprofloxacin, Azithromycin, Bactrim) which may potentiate the action of oral anticoagulants, with further increases in Protime/INR. PT International Ratio 1.0 ratio Invalid Interpretation Code [facility] Comment on above: Interpretive Data: Girma quijano [employer] (CHEST, 1991, 102:[id number]) recommended therapeutic range for oral anticoagulant therapy is: LOW RISK: Prophylaxis of venous thrombosis INR: 2.0-3.0 Treatment of pulmonary embolism 2.0-3.0 Prevention of systemic embolism 2.0-3.0 HIGH RISK: Mechanical prosthetic valves 2.5-3.5 PLTon 12-23-2023 Platelet 275 10 3/mcL Normal 150-450 [facility] ([place]) Comment on above: Performed By: #### P LT, FIB, PRO ####[address] [address] PROon 12-23-2023 INR Coag (PPP) [Relative time] 1.0 {INR} Normal [facility] ([place]) Comment on above: Result Comment: [employer] (CHEST, 1991, 102:312S-25S) recommended therapeutic range for oral anticoagulant therapy is: LOW RISK: Prophylaxis of venous thrombosis INR: 2.0-3.0 Treatment of pulmonary embolism 2.0-3.0 Prevention of systemic embolism 2.0-3.0 HIGH RISK: Mechanical prosthetic valves 2.5-3.5 Performed By: #### P LT, FIB, PRO ####[address] [place] [address] PT Coag (PPP) [Time] 11.4 s Normal 9.0-14.4 [facility] ([place]) Comment on above: Result Comment: Effe ctive 01/11/08, Protime results may be affected by some antibiotics (i.e. Ciprofloxacin, Azithromycin, Bactrim) which may potentiate the action of oral anticoagulants, with further increases in Protime/INR. Performed By: #### P LT, FIB, PRO ####[place] [id number] [place] [address] SPINE LUMBAR W/CONTRASTon 12-22-2023 CT SPINE LUMBAR W/CONTRAST ORIGINAL EXAMINATION: CT OF THE LUMBAR SPINE WITH CONTRAST 12/22/2023 11:16 am TECHNIQUE: CT of the lumbar spine was performed with the administration of intravenous contrast. Multiplanar reformatted images are provided for review. Automated exposure control, iterative reconstruction, and/or weight based adjustment of the mA/kV was utilized to reduce the radiation dose to as low as reasonably achievable. COMPARISON: MRI lumbar spine 10/15/2023 HISTORY: ORDERING SYSTEM PROVIDED HISTORY: Reason for Exam: s/p L4-S1 laminectomy with bilateral foraminotomies with Dr. Kapoor on 12/08/2023. Having positional headaches. Assess for CSF leak FINDINGS: There are 5 lumbar type vertebral bodies. Minimal retrolisthesis L5 on S1. Alignment is otherwise maintained. Vertebral body heights are preserved. The there is no acute fracture or traumatic malalignment. Disc spaces are maintained. There are a few scattered minimal osteophytes. A right renal cyst is identified requiring no imaging follow-up. Left renal lesions measure more than fluid attenuation bilateral simple renal cysts are identified requiring no imaging follow-up. Additionally, there are lesions of the left kidney which measure more than fluid attenuation but are favored to represent complex cysts. This could be confirmed by ultrasound. Colonic diverticula are noted. Minimal atherosclerotic disease noted in the aorta. The common duct appears prominent measuring 1 cm, not well assessed by this method. The There has been posterior decompression at L4-5 since the prior. Partial removal of the L3 spinous process and L5 spinous process. There is a peripherally enhancing fluid collection at the surgical levels which appears contiguous with the canal and measures approximately 3.8 cm transverse by 3.5 cm AP by 5.5 cm cranial caudal. This could be consistent with clinical concern for an area of CSF leak. CT cannot determine the sterility. IMPRESSION: 1. Peripherally enhancing fluid collection at the surgical site which appears contiguous with the canal. This could be consistent with an area of CSF leak but would be better evaluated by MRI or CT myelogram. CT cannot determine the sterility of this fluid collection. 2. Left renal lesions measure more than fluid attenuation but are favored to represent complex cysts. This could be confirmed by ultrasound. 3. The common duct appears prominent measuring 1 cm, not well assessed by this method. Interpreted by: Karie Curran MD Preliminary Report By: Karie Curran MD Electronically signed By Karie Curran MD Dictated Date: 12/22/2023 11:23:39 AM Prelim Date: 12/22/2023 11:33:22 AM Sign Date: 12/22/2023 11:33:22 AM Ordering Provider: ORIN BRADFORD [facility] ([place]) MRI SPINE LUMBAR W/ + W/O CO NTRASTon 12-22-2023 MRI SPINE LUMBAR W/ + W/O CONTRAST ORIGINAL EXAMINATION: MRI OF THE LUMBAR SPINE WITHOUT AND WITH CONTRAST 12/22/2023 2:18 pm TECHNIQUE: Multiplanar multisequence MRI of the lumbar spine was performed without and with the administration of intravenous contrast. COMPARISON: 10/15/2023 HISTORY: ORDERING SYSTEM PROVIDED HISTORY: Reason for Exam: s/p L4-S1 laminectomy with bilateral foraminotomies with Dr. Kapoor on 12/08/2023. CSF leak on CT scan. Headaches since surgery FINDINGS: For the purposes of this dictation, there are 5 lumbar type vertebral bodies with the most caudal fully segmented body denoted as L5. Minimal retrolisthesis L5 on S1. Alignment is otherwise maintained. Vertebral body heights are preserved. There is mild disc desiccation at L4-5 and L5-S1 with preservation of disc heights. No suspicious marrow signal. The conus terminates at a normal level. There is new diffuse nerve root clumping since the prior. Incompletely characterized T2 hyperintense renal lesions could reflect cysts. 1 of the lesions on the left has layering T2 hypointensity which could represent milk of calcium. There has been interval posterior decompression from L3-4 through mid L5. At the operative site, there is a peripherally enhancing fluid collection measuring 6.6 cm cranial caudal by 3.2 cm transverse by 4.0 cm AP. This collection abuts and distorts the thecal sac. The dura is difficult to assess but there appears to be interruption of the dura posteriorly at the mid L5 level (image 13 series 5). There are lobules of fat at the L4-5 level posteriorly in the region of the fluid collection, perhaps displaced to this location during surgery. There is an additional multiloculated fluid collection in the subcutaneous fat measuring 10.5 cm in cranial caudal dimension which could be postoperative but MRI cannot determine the sterility. L1-L2: Ligamentum flavum hypertrophy. Clumping of the nerve roots. No canal or neural foraminal stenosis. L2-L3: Ligamentum flavum hypertrophy. Clumping of the nerve roots. No canal or neural foraminal stenosis. L3-L4: Posteriorly decompressed. Facet arthropathy. Fluid collection at the operative site results in moderate canal stenosis. Clumping of the nerve roots. No significant neural foraminal stenosis. L4-L5: Small high-intensity zone of the disc. Facet arthropathy. Posterior fluid collection with mass effect upon the canal and resultant moderate canal stenosis. Clumping of the nerve roots. No significant neural foraminal stenosis. L5-S1: Facet arthropathy. Clumping of the nerve roots. No canal stenosis. Mild right but no significant left neural foraminal stenosis. IMPRESSION: 1. 6.6 cm peripherally enhancing fluid collection at the operative site with mass effect upon the thecal sac and resultant moderate canal stenosis at L3-L4 and L4-L5. Postoperative fluid collection or CSF leak are the primary differentials. Sterility of this collection cannot be determined by imaging. 2. 10.5 cm multiloculated fluid collection in the subcutaneous fat which could be postoperative but MRI cannot determine the sterility. 3. 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 4. Clumps of fat in the region of the fluid collection at L4-5, perhaps displaced during surgery. Interpreted by: Karie Curran MD Preliminary Report By: Karie Curran MD Electronically signed By Karie Curran MD Dictated Date: 12/22/2023 2:28:10 PM Prelim Date: 12/22/2023 2:44:46 PM Sign Date: 12/22/2023 2:44:46 PM Ordering Provider: ORIN BRADFORD [facility] ([place]) LABORATORYOrdered By: Rossana James on 12-11-2023 Blood Glucose Testing Reason Routine (12/11/23 7:43 AM) [facility] Work Phone: Glucose [Mass/Vol] 109 mg/dL Normal 70 - 110 mg/dL [facility] Work Phone: LABORATORYOrdered By: Himanshu Burr on 12-10-2023 Blood Glucose Testing Reason Routine (12/10/23 9:07 PM) [facility] Work Phone: Glucose [Mass/Vol] 103 mg/dL Normal 70 - 110 mg/dL [facility] Work Phone: LABORATORYOrdered By: Amalia Estrada on 12-10-2023 Glucose [Mass/Vol] 122 mg/dL High 70 - 110 mg/dL [facility] Work Phone: LABORATORYOrdered By: Rossana James on 12-10-2023 Blood Glucose Testing Reason Routine (12/10/23 11:20 AM) [facility] Work Phone: XR FLUORO 1-2 HRS TECH TIMEo n 12-08-2023 XR FLUORO 1-2 HRS TECH TIME ORIGINAL EXAMINATION: SPOT FLUOROSCOPIC IMAGES 12/08/2023 12:28 pm TECHNIQUE: Fluoroscopy was provided by the radiology department for procedure. Radiologist was not present during examination. FLUOROSCOPY DOSE AND TYPE: Radiation Exposure Index: Kerma mGy, 9.3037 COMPARISON: None HISTORY: ORDERING SYSTEM PROVIDED HISTORY: Reason for Exam: PAIN Intraprocedural imaging. FINDINGS: Spot intraoperative images are obtained demonstrating localization of L4 through S1. IMPRESSION: Intraprocedural fluoroscopic spot images as above. See separate procedure report for more information. Interpreted by: Greg Sarmiento MD Preliminary Report By: Greg Sarmiento MD Electronically signed By Greg Sarmiento MD Dictated Date: 12/08/2023 4:12:05 PM Prelim Date: 12/08/2023 4:13:45 PM Sign Date: 12/08/2023 4:13:45 PM Ordering Provider: FALLON Zayas [facility] ([place]) XR CHEST 2 VIEWSon XR CHEST 2 VIEWS ORIGINAL EXAMINATION: TWO XRAY VIEWS OF THE CHEST 11/27/2023 1:36 pm COMPARISON: Chest x-ray on 09/19/2023 HISTORY: ORDERING SYSTEM PROVIDED HISTORY: Reason for Exam: cough FINDINGS: The heart size and mediastinal contours are normal. There is no lung infiltrate or edema. No pneumothorax or pleural fluid is present. The skeletal structures are unremarkable. IMPRESSION: No acute cardiopulmonary process. Interpreted by: Artemio Eddy MD Preliminary Report By: Artemio Eddy MD Electronically signed By Artemio Eddy MD Dictated Date: 11/28/2023 1:22:09 AM Prelim Date: 11/28/2023 1:23:18 AM Sign Date: 11/28/2023 1:23:18 AM Ordering Provider: FALLON Zayas [facility] ([place]) .Auto Diffon 11-27-2023 Basophil, Absolute 0.0 10 3/mcL Normal 0.0-0.3 [facility] ([place]) Comment on above: Performed By: #### C SRAVANI HERNDON ANEU #### [address] [address] Basophils/100 WBC (Bld) 0.2 % Normal 0.0-2.5 [facility] ([place]) Comment on above: Performed By: #### SRAVANI CAMILO ANEU #### [address] [address] Eosinophil, Absolute 0.2 10 3/mcL Normal 0.0-0.7 [facility] ([place]) Comment on above: Performed By: #### SRAVANI CAMILO ANEU #### [address] [address] Eosinophils/100 WBC (Bld) 1.7 % Normal 0.0-6.0 [facility] ([place]) Comment on above: Performed By: #### SRAVANI CAMILO ANEU #### [address] [address] Lymphocyte, Absolute 2.8 10 3/mcL Normal 0.9-4.3 [facility] ([place]) Comment on above: Performed By: #### SRAVANI CAMILO ANEU #### [address] [address] Lymphocytes/100 WBC (Bld) 31.6 % Normal 20.0-40.0 [facility] ([place]) Comment on above: Performed By: #### C SRAVANI HERNDON, ANEU #### [facility] [address] [place] [address] Monocyte, Absolute 0.5 10 3/mcL Normal 0.1-1.4 [facility] ([place]) Comment on above: Performed By: #### C SRAVANI HERNDON, ANEU #### [address] [address] Monocytes/100 WBC (Bld) 5.2 % Normal 2.0-13.0 [facility] ([place]) Comment on above: Performed By: #### C SRAVANI HERNDON, ANEU #### [address] [address] Neutrophils/100 WBC (Bld) 61.3 % Normal 50.0-75.0 [facility] ([place]) Comment on above: Performed By: #### C SRAVANI HERNDON, ANEU #### [address] [address] .GFRon 11-27-2023 GFR >60 Normal [facility] ([place]) Comment on above: Result Comment: GFR Population mean for , Non- Americans Ages 20-29 = 116 mL/min/1.73 sq.m. Ages 30-39 = 107 mL/min/1.73 sq.m. Ages 40-49 = 99 mL/min/1.73 sq.m. Ages 50-59 = 93 mL/min/1.73 sq.m. Ages 60-69 = 85 mL/min/1.73 sq.m. Ages 70+ = 75 mL/min/1.73 sq.m. Chronic Kidney Disease: Less than 60 mL/min/1.73 square meters End Stage Renal Disease: Less than 15 mL/min/1.73 square meters Performed By: #### C SRAVANI HERNDON, ANEU #### [address] [address] GFR Non- >60 Normal [facility] ([place]) Comment on above: Result Comment: GFR Population mean for , Non- Americans Ages 20-29 = 116 mL/min/1.73 sq.m. Ages 30-39 = 107 mL/min/1.73 sq.m. Ages 40-49 = 99 mL/min/1.73 sq.m. Ages 50-59 = 93 mL/min/1.73 sq.m. Ages 60-69 = 85 mL/min/1.73 sq.m. Ages 70+ = 75 mL/min/1.73 sq.m. Chronic Kidney Disease: Less than 60 mL/min/1.73 square meters End Stage Renal Disease: Less than 15 mL/min/1.73 square meters Performed By: #### SRAVANI CAMILO ANEU #### [address] [address] .NEUABSon 11-27-2023 Neutrophil, Absolute 5.3 10 3/mcL Normal 2.3-8.1 [facility] ([place]) Comment on above: Performed By: #### SRAVANI CAMILO ANEU #### [place] [address] APTTon 11-27-2023 aPTT Coag (Bld) [Time] 29.7 s Normal 25.0-35.0 [facility] ([place]) Comment on above: Result Comment: For Heparin anticoagulation therapy, the recommended therapeutic range is: 54-77 seconds (APTT Correlation with Anti-Xa therapeutic range of 0.3-0.7 units/ml). PLEASE REFERENCE THE PHARMACY PROTOCOL FOR DOSING. Performed By: #### SRAVANI CAMILO ANEU #### [place] [address] Heparin dose (APTT) None Normal [facility] ([place]) Comment on above: Performed By: #### SRAVANI CAMILO ANEU #### [place] [id number] CBCon 11-27-2023 Erythrocyte distribution width (RBC) [Ratio] 13.8 % Normal 11.5-15.5 [facility] ([place]) Comment on above: Performed By: #### SRAVANI CAMILO ANEU #### [address] [address] Hematocrit (Bld) [Volume fraction] 43.8 % Normal 40.0-52.0 [facility] ([place]) Comment on above: Performed By: #### SRAVANI CAMILO ANEU #### [address] [address] Hgb 15.2 G/dL Normal 13.0-17.5 [facility] ([place]) Comment on above: Performed By: #### SRAVANI CAMILO ANEU #### [address] [address] MCH (RBC) [Entitic mass] 31.2 pg Normal 27.0-33.0 [facility] ([place]) Comment on above: Performed By: #### C SRAVANI HERNDON ANEU #### [place] [id number] MCHC 34.6 G/dL Normal 32.0-36.0 [facility] ([place]) Comment on above: Performed By: #### C SRAVANI HERNDON ANEU #### [place] [id number] MCV (RBC) [Entitic vol] 90.1 fL Normal 81.0-100.0 [facility] ([place]) Comment on above: Performed By: #### SRAVANI CAMILO ANEU #### [address] [address] Platelet 227 10 3/mcL Normal 150-450 [facility] ([place]) Comment on above: Performed By: #### C SRAVANI HERNDON ANEU #### [place] [id number] Platelet mean volume (Bld) [Entitic vol] 8.4 fL Normal 6.4-10.5 [facility] ([place]) Comment on above: Performed By: #### SRAVANI CAMILO ANEU #### [address] [address] RBC 4.86 10 6/mcL Normal 4.50-6.00 [facility] ([place]) Comment on above: Performed By: #### SRAVANI CAMILO, LUIGI #### [address] [address] WBC 8.7 10 3/mcL Normal 4.5-10.8 [facility] ([place]) Comment on above: Performed By: #### SRAVANI CAMILO ANEU #### [address] [address] CMPon 11-27-2023 Albumin Level 3.7 G/dL Normal 3.2-4.8 [facility] ([place]) Comment on above: Performed By: #### SRAVANI CAMILO ANEU #### [address] [address] Albumin/Globulin [Mass ratio] 1.2 {ratio} Normal 0.9-1.6 [facility] ([place]) Comment on above: Performed By: #### SRAVANI CAMILO ANEU #### [address] [address] ALP [Catalytic activity/Vol] 89 U/L Normal 38-126 [facility] ([place]) Comment on above: Performed By: #### SRAVANI CAMILO ANEU #### [address] [address] ALT [Catalytic activity/Vol] 14 U/L Normal 12-55 [facility] ([place]) Comment on above: Performed By: #### SRAVANI CAMILO ANEU #### [address] [address] AST [Catalytic activity/Vol] 20 U/L Normal 8-34 [facility] ([place]) Comment on above: Performed By: #### SRAVANI CAMILO, ANEU #### [address] [address] Bili Total 0.40 mg/dL Normal 0.20-1.20 [facility] ([place]) Comment on above: Result Comment: Use of this assay is not recommended for patients undergoing treatment with eltrombopag due to the potential for falsely elevated results. Performed By: #### SRAVANI CAMILO, ANEU #### [address] [address] BUN/Creatinine Ratio 12.2 ratio Normal 10.0-22.0 [facility] ([place]) Comment on above: Performed By: #### C SRAVANI HERNDON, ANEU #### [address] [address] Calcium [Mass/Vol] 9.6 mg/dL Normal 8.7-10.4 [facility] ([place]) Comment on above: Performed By: #### C SRAVANI HERNDON, ANEU #### [address] [address] Chloride [Moles/Vol] 107 mmol/L Normal 98-110 [facility] ([place]) Comment on above: Performed By: #### C SRAVANI HERNDON, ANEU #### [address] [address] CO2 [Moles/Vol] 30 mmol/L Normal 22-32 [facility] ([place]) Comment on above: Performed By: #### C SRAVANI HERNDON, ANEU #### [address] [address] Creatinine [Mass/Vol] 0.90 mg/dL Normal 0.60-1.40 [facility] ([place]) Comment on above: Performed By: #### C SRAVANI HERNDON, ANEU #### [address] [address] Electrolyte Balance 0.0 mEq/L Low 4.0-15.0 [facility] ([place]) Comment on above: Performed By: #### C SRAVANI HERNDON, ANEU #### [address] [address] Globulin 3.0 G/dL Normal 1.5-3.8 [facility] ([place]) Comment on above: Performed By: #### C SRAVANI HERNDON, ANEU #### [address] [address] Glucose [Mass/Vol] 86 mg/dL Normal 70-110 [facility] ([place]) Comment on above: Performed By: #### SRAVANI CAMILO, ANEU #### [address] [address] Potassium [Moles/Vol] 4.1 mmol/L Normal 3.5-5.0 [facility] ([place]) Comment on above: Performed By: #### C SRAVANI HERNDON ANEU #### [facility] [address] [place] [address] Sodium [Moles/Vol] 137 mmol/L Normal 136-145 [facility] ([place]) Comment on above: Performed By: #### SRAVANI CAMILO ANEU #### [address] [address] Total Protein 6.7 G/dL Normal 5.7-8.2 [facility] ([place]) Comment on above: Result Comment: No te - New Reference Range in effect 20 Performed By: #### SRAVANI CAMILO ANEU #### [address] [address] Urea nitrogen [Mass/Vol] 11.0 mg/dL Normal 8.0-22.0 [facility] ([place]) Comment on above: Performed By: #### SRAVANI CAMILO ANEU #### [address] [address] LABORATORYOrdered By: SYSTEM SYSTEM on 11-27-2023 Albumin BCP dye [Mass/Vol] 3.7 G/dL Normal 3.2 - 4.8 G/dL ADM SS Albumin/Globulin [Mass ratio] 1.2 {ratio} Normal 0.9 - 1.6 ratio ADM SS ALP [Catalytic activity/Vol] 89 U/L Normal 38 - 126 U/L ADM SS ALT No additional P-5'-P [Catalytic activity/Vol] 14 U/L Normal 12 - 55 U/L ADM SS AST [Catalytic activity/Vol] 20 U/L Normal 8 - 34 U/L ADM SS Basophils (Bld) [#/Vol] 0.0 103/mcL Normal 0.0 - 0.3 10^3/mcL Workflow SS Basophils/100 WBC (Bld) 0.2 % Normal 0.0 - 2.5 % Workflow SS Bilirubin [Mass/Vol] 0.40 mg/dL Normal 0.20 - 1.20 mg/dL ADM SS Comment on above: Interpretive Data: U se of this assay is not recommended for patients undergoing treatment with eltrombopag due to the potential for falsely elevated results. Calcium [Mass/Vol] 9.6 mg/dL Normal 8.7 - 10. 4 mg/dL ADM SS Chloride [Moles/Vol] 107 mmol/L Normal 98 - 11 0 mEq/L ADM SS CO2 [Moles/Vol] 30 mmol/L Normal 22 - 32 mEq/L ADM SS Creatinine [Mass/Vol] 0.90 mg/dL Normal 0.60 - 1.40 mg/dL ADM SS Electrolyte Balance 0.0 mEq/L Low 4.0 - 15 .0 mEq/L ADM SS Eosinophils (Bld) [#/Vol] 0.2 103/mcL Normal 0.0 - 0.7 10^3/mcL Workflow SS Eosinophils/100 WBC (Bld) 1.7 % Normal 0.0 - 6.0 % Workflow SS Erythrocyte distribution width (RBC) [Ratio] 13.8 % Normal 11.5 - 15.5 % Workflow SS GFR/1.73 sq M.predicted among blacks MDRD (S/P/Bld) [Vol rate/Area] ml/min/1.73sqm Invalid Interpretation Code [employer] [facility] Comment on above: Interpretive Data: GFR Population mean for , Non- Americans Ages 20-29 = 116 mL/min/1.73 sq.m. Ages 30-39 = 107 mL/min/1.73 sq.m. Ages 40-49 = 99 mL/min/1.73 sq.m. Ages 50-59 = 93 mL/min/1.73 sq.m. Ages 60-69 = 85 mL/min/1.73 sq.m. Ages 70+ = 75 mL/min/1.73 sq.m. Chronic Kidney Disease: Less than 60 mL/min/1.73 square meters End Stage Renal Disease: Less than 15 mL/min/1.73 square meters GFR/1.73 sq M.predicted among non-blacks MDRD (S/P/Bld) [Vol rate/Area] ml/min/1.73sqm Invalid Interpretation Code [employer] [facility] Comment on above: Interpretive Data: GFR Population mean for , Non- Americans Ages 20-29 = 116 mL/min/1.73 sq.m. Ages 30-39 = 107 mL/min/1.73 sq.m. Ages 40-49 = 99 mL/min/1.73 sq.m. Ages 50-59 = 93 mL/min/1.73 sq.m. Ages 60-69 = 85 mL/min/1.73 sq.m. Ages 70+ = 75 mL/min/1.73 sq.m. Chronic Kidney Disease: Less than 60 mL/min/1.73 square meters End Stage Renal Disease: Less than 15 mL/min/1.73 square meters Globulin 3.0 G/dL Normal 1.5 - 3.8 G/dL AH ADM SS Glucose [Mass/Vol] 86 mg/dL Normal 70 - 110 mg/dL AH ADM SS Hematocrit (Bld) [Volume fraction] 43.8 % Normal 40.0 - 52.0 % AH Workflow SS Hemoglobin (Bld) [Mass/Vol] 15.2 G/dL Normal 13.0 - 17.5 G/dL AH Workflow SS Lymphocytes (Bld) [#/Vol] 2.8 103/mcL Normal 0.9 - 4.3 10^3/mcL AH Workflow SS Lymphocytes/100 WBC (Bld) 31.6 % Normal 20.0 - 40.0 % AH Workflow SS MCH (RBC) [Entitic mass] 31.2 pg Normal 27.0 - 33.0 pg AH Workflow SS MCHC 34.6 G/dL Normal 32.0 - 36.0 G/dL AH Workflow SS MCV (RBC) [Entitic vol] 90.1 fL Normal 81.0 - 100.0 fL AH Workflow SS Monocytes (Bld) [#/Vol] 0.5 103/mcL Normal 0.1 - 1.4 10^3/mcL AH Workflow SS Monocytes/100 WBC (Bld) 5.2 % Normal 2.0 - 13.0 % AH Workflow SS Neutrophils (Bld) [#/Vol] 5.3 103/mcL Normal 2.3 - 8.1 10^3/mcL AH Workflow SS Neutrophils/100 WBC (Bld) 61.3 % Normal 50.0 - 75.0 % AH Workflow SS Platelet mean volume (Bld) [Entitic vol] 8.4 fL Normal 6.4 - 10.5 fL AH Workflow SS Platelets (Bld) [#/Vol] 227 103/mcL Normal 150 - 450 10^3/mcL AH Workflow SS Potassium [Moles/Vol] 4.1 mmol/L Normal 3.5 - 5.0 mEq/L AH ADM SS Protein [Mass/Vol] 6.7 G/dL Normal 5.7 - 8.2 G/dL AH ADM SS Comment on above: Interpretive Data: * *Note - New Reference Range in effect 20 RBC (Bld) [#/Vol] 4.86 106/mcL Normal 4.50 - 6.0 0 10^6/mcL AH Workflow SS Sodium [Moles/Vol] 137 mmol/L Normal 136 - 145 mEq/L AH ADM SS Urea nitrogen [Mass/Vol] 11.0 mg/dL Normal 8.0 - 22.0 mg/dL AH ADM SS Urea nitrogen/Creatinine [Mass ratio] 12.2 ratio Normal 10.0 - 22.0 ratio AH ADM SS WBC (Bld) [#/Vol] 8.7 103/mcL Normal 4.5 - 10.8 10^3/mcL AH Workflow SS LABORATORYOrdered By: Stephan Pierce on 11-27-2023 Appearance (U) Clear (11/27/23 12:22 PM) Normal AH Auto Urine SS Bilirubin Ql (U) Negative (11/27/23 12:22 PM) Normal AH Auto Urine SS Color (U) Yellow (11/27/23 12:22 PM) Normal AH Auto Urine SS Glucose Test strip (U) [Mass/Vol] Negative Normal AH Auto Urine SS Hemoglobin Auto test strip (U) [Mass/Vol] Trace (11/27/23 12:22 PM) Normal AH Auto Urine SS Ketones Ql (U) Negative Normal AH Auto Urine SS UA Leuk Est Negative (11/27/23 12:22 PM) Normal AH Auto Urine SS UA Nitrite Negative (11/27/23 12:22 PM) Normal AH Auto Urine SS UA pH 7.5 (11/27/23 12:22 PM) Normal AH Auto Urine SS UA Protein Negative Normal AH Auto Urine SS UA Spec Grav 1.010 (11/27/23 12:22 PM) Normal AH Auto Urine SS UA Specimen Type Clean Catch (11/27/23 12:22 PM) Normal AH Auto Urine SS UA Urobilinogen 0.2 E.U./dL Normal AH Auto Urine SS LABORATORYOrdered By: Kimo Nieto on 11-27-2023 aPTT Coag (Bld) [Time] 29.7 s Normal 25.0 - 35.0 seconds [facility] Comment on above: Interpretive Data: F or Heparin anticoagulation therapy, the recommended therapeutic range is: 54-77 seconds (APTT Correlation with Anti-Xa therapeutic range of 0.3-0.7 units/ml). PLEASE REFERENCE THE PHARMACY PROTOCOL FOR DOSING. Heparin dose (APTT) None Normal Coagulation S PT Coag (PPP) [Time] 10.2 s Normal 9.0 - 1 4.4 seconds [facility] Comment on above: Interpretive Data: E ffective 01/11/08, Protime results may be affected by some antibiotics (i.e. Ciprofloxacin, Azithromycin, Bactrim) which may potentiate the action of oral anticoagulants, with further increases in Protime/INR. PT International Ratio 0.9 ratio Invalid Interpretation Code [facility] Comment on above: Interpretive Data: Girma quijano [employer] (CHEST, 1991, 102:[id number]) recommended therapeutic range for oral anticoagulant therapy is: LOW RISK: Prophylaxis of venous thrombosis INR: 2.0-3.0 Treatment of pulmonary embolism 2.0-3.0 Prevention of systemic embolism 2.0-3.0 HIGH RISK: Mechanical prosthetic valves 2.5-3.5 PROon 11-27-2023 INR Coag (PPP) [Relative time] 0.9 {INR} Normal [facility] ([place]) Comment on above: Result Comment: [employer] (CHEST, 1991, 102:[id number]) recommended therapeutic range for oral anticoagulant therapy is: LOW RISK: Prophylaxis of venous thrombosis INR: 2.0-3.0 Treatment of pulmonary embolism 2.0-3.0 Prevention of systemic embolism 2.0-3.0 HIGH RISK: Mechanical prosthetic valves 2.5-3.5 Performed By: #### C BC, ADSOULEYMANE, ANEU #### [place] [address] PT Coag (PPP) [Time] 10.2 s Normal 9.0-14.4 [facility] ([place]) Comment on above: Result Comment: Effe ctive 01/11/08, Protime results may be affected by some antibiotics (i.e. Ciprofloxacin, Azithromycin, Bactrim) which may potentiate the action of oral anticoagulants, with further increases in Protime/INR. Performed By: #### C KATRINA, SRAVANI, ANEU #### [address] [address] UAon 11-27-2023 Color (U) Yellow Normal [facility] ([place]) Comment on above: Performed By: #### U A ####[place] [address] Glucose (U) [Mass/Vol] Negative Normal Negative [facility] ([place]) Comment on above: Performed By: #### U A ####[address] [address] Ketones Ql (U) Negative Normal Neg-Trace [facility] ([place]) Comment on above: Performed By: #### U A ####[place] [address] UA Appear Clear Normal Clear [facility] ([place]) Comment on above: Performed By: #### U A ####[place] [address] UA Blood Trace Normal Neg-Trace [facility] ([place]) Comment on above: Performed By: #### U A ####[place] [address] UA Leuk Est Negative Normal Negative [facility] ([place]) Comment on above: Performed By: #### U A ####[address] [address] UA Nitrite Negative Normal Negative [facility] ([place]) Comment on above: Performed By: #### U A ####[place] [address] UA pH 7.5 Normal 5.0 - 8.0 [facility] ([place]) Comment on above: Performed By: #### U A ####[place] [address] UA Protein Negative Normal Negative [facility] ([place]) Comment on above: Performed By: #### U A ####[place] [address] UA Spec Grav 1.010 Normal 1.006-1.029 [facility] ([place]) Comment on above: Performed By: #### U A ####[facility] [place] [address] UA Specimen Type Clean Catch Normal [facility] ([place]) Comment on above: Performed By: #### U A ####[place] [address] [place] [address] UA Urobilinogen 0.2 E.U./dL Normal 0.2-1.0 [facility] ([place]) Comment on above: Performed By: #### U A ####[address] [address] Urobilinogen (U) [Mass/Vol] Negative Normal Neg-Trace [facility] ([place]) Comment on above: Performed By: #### U A ####[address] [address] MRI SPINE LUMBAR W/O CONTRAS Ton 10-16-2023 MRI SPINE LUMBAR W/O CONTRAST ORIGINAL HISTORY: Low back pain COMPARISON: CT 19 Nov 2021 TECHNIQUE: 1. Sagittal T1-weighted images. 2. Sagittal T2-weighted images with and without fat saturation. 3. Axial T1-weighted images. 4. Axial T2-weighted images. FINDINGS: There are 5 lumbar type vertebral bodies for the purpose of this dictation. There is mild grade 1 retrolisthesis at L5-S1. There is mild disc desiccation and disc space narrowing in the lower lumbar spine. The tip of the conus is at the L1-L2 level. There is no abnormal signal within the visualized spinal cord. Specific findings by level: L2-L3: There is mild facet and ligamentum flavum hypertrophy. L3-L4: There is mild facet hypertrophy. There is mild right ligamentum flavum hypertrophy. L4-L5: There is a mild posterior disc bulge with a slight superimposed central extrusion. There is mild facet and ligamentum flavum hypertrophy. There is prominent epidural fat. There is mild stenosis. L4-L5: There is a mild posterior disc bulge. There is mild facet and ligamentum flavum hypertrophy. IMPRESSION: Mild stenosis at L4-L5 secondary to disc, facet and ligamentum flavum pathology along with prominent epidural fat. Milder degenerative changes at the remaining levels, without significant stenosis. Interpreted by: Kristen Bowden MD Preliminary Report By: Kristen Bowden MD Electronically signed By Kristen Bowden MD Dictated Date: 10/16/2023 2:38:23 PM Prelim Date: 10/16/2023 2:47:21 PM Sign Date: 10/16/2023 2:47:21 PM Ordering Provider: ORIN Zayas [facility] ([place]) .Auto Diffon 09-19-2023 Basophil, Absolute 0.1 10 3/mcL Normal 0.0-0.3 [facility] ([place]) Comment on above: Performed By: #### C SRAVANI HERNDON ANEU #### [address] [address] Basophils/100 WBC (Bld) 1.1 % Normal 0.0-2.5 [facility] ([place]) Comment on above: Performed By: #### SRAVANI CAMILO ANEU #### [address] [address] Eosinophil, Absolute 0.2 10 3/mcL Normal 0.0-0.7 [facility] ([place]) Comment on above: Performed By: #### SRAVANI CAMILO, ANEU #### [address] [address] Eosinophils/100 WBC (Bld) 2.1 % Normal 0.0-6.0 [facility] ([place]) Comment on above: Performed By: #### SRAVANI CAMILO ANEU #### [address] [address] Lymphocyte, Absolute 2.3 10 3/mcL Normal 0.9-4.3 [facility] ([place]) Comment on above: Performed By: #### C SRAVANI HERNDON, ANEU #### [address] [address] Lymphocytes/100 WBC (Bld) 29.1 % Normal 20.0-40.0 [facility] ([place]) Comment on above: Performed By: #### SRAVANI CAMILO, ANEU #### [address] [address] Monocyte, Absolute 0.5 10 3/mcL Normal 0.1-1.4 [facility] ([place]) Comment on above: Performed By: #### C SRAVANI HERNDON ANEU #### [address] [address] Monocytes/100 WBC (Bld) 5.9 % Normal 2.0-13.0 [facility] ([place]) Comment on above: Performed By: #### C SRAVANI HERNDON ANEU #### [address] [address] Neutrophils/100 WBC (Bld) 61.8 % Normal 50.0-75.0 [facility] ([place]) Comment on above: Performed By: #### C SRAVANI HERNDON ANEU #### [address] [address] .GFRon 09-19-2023 GFR >60 Normal [facility] ([place]) Comment on above: Result Comment: GFR Population mean for , Non- Americans Ages 20-29 = 116 mL/min/1.73 sq.m. Ages 30-39 = 107 mL/min/1.73 sq.m. Ages 40-49 = 99 mL/min/1.73 sq.m. Ages 50-59 = 93 mL/min/1.73 sq.m. Ages 60-69 = 85 mL/min/1.73 sq.m. Ages 70+ = 75 mL/min/1.73 sq.m. Chronic Kidney Disease: Less than 60 mL/min/1.73 square meters End Stage Renal Disease: Less than 15 mL/min/1.73 square meters Performed By: #### C SRAVANI HERNDON ANEU #### [address] [address] GFR Non- >60 Normal [facility] ([place]) Comment on above: Result Comment: GFR Population mean for , Non- Americans Ages 20-29 = 116 mL/min/1.73 sq.m. Ages 30-39 = 107 mL/min/1.73 sq.m. Ages 40-49 = 99 mL/min/1.73 sq.m. Ages 50-59 = 93 mL/min/1.73 sq.m. Ages 60-69 = 85 mL/min/1.73 sq.m. Ages 70+ = 75 mL/min/1.73 sq.m. Chronic Kidney Disease: Less than 60 mL/min/1.73 square meters End Stage Renal Disease: Less than 15 mL/min/1.73 square meters Performed By: #### SRAVANI CAMILO ANEU #### [address] [address] .MDWon 09-19-2023 Monocyte Distribution Width 18.97 Normal 0.00-20.00 [facility] ([place]) Comment on above: Result Comment: For ED adult patients suspected of sepsis, MDW<=20.0 does not rule out sepsis or risk of sepsis Performed By: #### SRAVANI CAMILO ANEU #### [place] [address] .NEUABSon 09-19-2023 Neutrophil, Absolute 4.9 10 3/mcL Normal 2.3-8.1 [facility] ([place]) Comment on above: Performed By: #### SRAVANI CAMILO ANEU #### [place] [address] BMPon 09-19-2023 BUN/Creatinine Ratio 8.0 ratio Low 10.0-22.0 [facility] ([place]) Comment on above: Performed By: #### SRAVANI CAMILO ANEU #### [place] [address] Calcium [Mass/Vol] 9.7 mg/dL Normal 8.7-10.4 [facility] ([place]) Comment on above: Performed By: #### SRAVANI CAMIOL ANEU #### [place] [id number] Chloride [Moles/Vol] 107 mmol/L Normal 98-110 [facility] ([place]) Comment on above: Performed By: #### SRAVANI CAMILO ANEU #### [place] [address] CO2 [Moles/Vol] 27 mmol/L Normal 22-32 [facility] ([place]) Comment on above: Performed By: #### SRAVANI CAMILO ANEU #### [place] [address] Creatinine [Mass/Vol] 1.00 mg/dL Normal 0.60-1.40 [facility] ([place]) Comment on above: Performed By: #### SRAVANI CAMILO ANEU #### [address] [address] Electrolyte Balance 2.0 mEq/L Low 4.0-15.0 [facility] ([place]) Comment on above: Performed By: #### SRAVANI CAMILO ANEU #### [address] [address] Glucose [Mass/Vol] 99 mg/dL Normal 70-110 [facility] ([place]) Comment on above: Performed By: #### SRAVANI CAMILO ANEU #### [address] [address] Potassium [Moles/Vol] 3.9 mmol/L Normal 3.5-5.0 [facility] ([place]) Comment on above: Performed By: #### SRAVANI CAMILO ANEU #### [address] [address] Sodium [Moles/Vol] 136 mmol/L Normal 136-145 [facility] ([place]) Comment on above: Performed By: #### SRAVANI CAMILO ANEU #### [address] [address] Urea nitrogen [Mass/Vol] 8.0 mg/dL Normal 8.0-22.0 [facility] ([place]) Comment on above: Performed By: #### SRAVANI CAMILO ANEU #### [address] [address] CBCon 09-19-2023 Erythrocyte distribution width (RBC) [Ratio] 14.0 % Normal 11.5-15.5 [facility] ([place]) Comment on above: Performed By: #### SRAVANI CAMILO ANEU #### [address] [address] Hematocrit (Bld) [Volume fraction] 40.8 % Normal 40.0-52.0 [facility] ([place]) Comment on above: Performed By: #### SRAVANI CAMILO ANEU #### [address] [address] Hgb 14.1 G/dL Normal 13.0-17.5 [facility] ([place]) Comment on above: Performed By: #### SRAVANI CAMILO ANEU #### [address] [address] MCH (RBC) [Entitic mass] 31.7 pg Normal 27.0-33.0 [facility] ([place]) Comment on above: Performed By: #### SRAVANI CAMILO ANEU #### [address] [address] MCHC 34.6 G/dL Normal 32.0-36.0 [facility] ([place]) Comment on above: Performed By: #### SRAVANI CAMILO ANEU #### [address] [address] MCV (RBC) [Entitic vol] 91.7 fL Normal 81.0-100.0 [facility] ([place]) Comment on above: Performed By: #### SRAVANI CAMILO ANEU #### [address] [address] Platelet 217 10 3/mcL Normal 150-450 [facility] ([place]) Comment on above: Performed By: #### SRAVANI CAMILO ANEU #### [address] [address] Platelet mean volume (Bld) [Entitic vol] 8.6 fL Normal 6.4-10.5 [facility] ([place]) Comment on above: Performed By: #### SRAVANI CAMILO ANEU #### [address] [address] RBC 4.45 10 6/mcL Low 4.50-6.00 [facility] ([place]) Comment on above: Performed By: #### SRAVANI CAMILO ANEU #### [address] [address] WBC 8.0 10 3/mcL Normal 4.5-10.8 [facility] ([place]) Comment on above: Performed By: #### SRAVANI CAMILO ANEU #### [place] [address] CVFLURVon 09-19-2023 FLU A PCR Negative Normal Negative [facility] ([place]) Comment on above: Result Comment: Note s [id number] Performed By: #### C VFLURV #### [place] [address] FLU B PCR Negative Normal Negative [facility] ([place]) Comment on above: Result Comment: [place] [id number] Performed By: #### C VFLURV #### [place] [address] RSV PCR Negative Normal Negative [facility] ([place]) Comment on above: Result Comment: Note s [id number] Performed By: #### C VFLURV #### [place] [address] SARS-CoV-2 (COVID-19) RNA JUANITA+probe Ql (Unsp spec) Negative Normal Negative [facility] ([place]) Comment on above: Result Comment: Note s [id number] This test has been authorized by FDA under an EUA for use by authorized laboratories and has not been FDA cleared or approved. Results from the Xpert Xpress SARS-CoV-2/Flu/RSV or Xpert Xpress SARS-CoV-2 only test should be correlated with the clinical history, epidemiological data, and other data available to the clinician evaluating the patient. Performance of the Xpert Xpress SARS-CoV-2/Flu/RSV or Xpert Xpress SARS-CoV-2 only test has only been established in nasopharyngeal swab specimens. Erroneous test results might occur from improper specimen collection; failure to follow the recommended sample collection, handling, and storage procedures; technical error; or sample mix-up.False negative results may occur if virus is present at levels below the analytical limit of detection. Viral nucleic acid may persist in vivo, independent of virus viability. Detection of analyte target(s) does not imply that the corresponding virus(es) are infectious or are the causative agents for clinical symptoms.Recent patient exposure to FluMist or other live attenuated influenza vaccines may cause inaccurate positive results. Performed By: #### C VFLURV #### [place] [address] LABORATORYOrdered By: SYSTEM SYSTEM on 09-19-2023 Troponin I.cardiac DL <= 0.01 ng/mL [Mass/Vol] 4 ng/L Normal 0 - 54 ng/L ADM SS Comment on above: Interpretive Data: High Sensitive Troponin I Reference Ranges: Female: 0-34 ng/L Male: 0-54 ng/L Testing performed on Eat analyzer using direct chemiluminescent technology. Basophils (Bld) [#/Vol] 0.1 103/mcL Normal 0.0 - 0.3 10^3/mcL Workflow SS Basophils/100 WBC (Bld) 1.1 % Normal 0.0 - 2.5 % Workflow SS Calcium [Mass/Vol] 9.7 mg/dL Normal 8.7 - 10. 4 mg/dL ADM SS Chloride [Moles/Vol] 107 mmol/L Normal 98 - 11 0 mEq/L ADM SS CO2 [Moles/Vol] 27 mmol/L Normal 22 - 32 mEq/L ADM SS Creatinine [Mass/Vol] 1.00 mg/dL Normal 0.60 - 1.40 mg/dL ADM SS Electrolyte Balance 2.0 mEq/L Low 4.0 - 15 .0 mEq/L ADM SS Eosinophils (Bld) [#/Vol] 0.2 103/mcL Normal 0.0 - 0.7 10^3/mcL Workflow SS Eosinophils/100 WBC (Bld) 2.1 % Normal 0.0 - 6.0 % Workflow SS Erythrocyte distribution width (RBC) [Ratio] 14.0 % Normal 11.5 - 15.5 % Workflow SS GFR/1.73 sq M.predicted among blacks MDRD (S/P/Bld) [Vol rate/Area] ml/min/1.73sqm Invalid Interpretation Code ADM SS Comment on above: Interpretive Data: GFR Population mean for , Non- Americans Ages 20-29 = 116 mL/min/1.73 sq.m. Ages 30-39 = 107 mL/min/1.73 sq.m. Ages 40-49 = 99 mL/min/1.73 sq.m. Ages 50-59 = 93 mL/min/1.73 sq.m. Ages 60-69 = 85 mL/min/1.73 sq.m. Ages 70+ = 75 mL/min/1.73 sq.m. Chronic Kidney Disease: Less than 60 mL/min/1.73 square meters End Stage Renal Disease: Less than 15 mL/min/1.73 square meters GFR/1.73 sq M.predicted among non-blacks MDRD (S/P/Bld) [Vol rate/Area] ml/min/1.73sqm Invalid Interpretation Code ADM SS Comment on above: Interpretive Data: GFR Population mean for , Non- Americans Ages 20-29 = 116 mL/min/1.73 sq.m. Ages 30-39 = 107 mL/min/1.73 sq.m. Ages 40-49 = 99 mL/min/1.73 sq.m. Ages 50-59 = 93 mL/min/1.73 sq.m. Ages 60-69 = 85 mL/min/1.73 sq.m. Ages 70+ = 75 mL/min/1.73 sq.m. Chronic Kidney Disease: Less than 60 mL/min/1.73 square meters End Stage Renal Disease: Less than 15 mL/min/1.73 square meters Glucose [Mass/Vol] 99 mg/dL Normal 70 - 110 mg/dL ADM SS Hematocrit (Bld) [Volume fraction] 40.8 % Normal 40.0 - 52.0 % AH Workflow SS Hemoglobin (Bld) [Mass/Vol] 14.1 G/dL Normal 13.0 - 17.5 G/dL AH Workflow SS Lymphocytes (Bld) [#/Vol] 2.3 103/mcL Normal 0.9 - 4.3 10^3/mcL AH Workflow SS Lymphocytes/100 WBC (Bld) 29.1 % Normal 20.0 - 40.0 % AH Workflow SS MCH (RBC) [Entitic mass] 31.7 pg Normal 27.0 - 33.0 pg AH Workflow SS MCHC 34.6 G/dL Normal 32.0 - 36.0 G/dL AH Workflow SS MCV (RBC) [Entitic vol] 91.7 fL Normal 81.0 - 100.0 fL Workflow SS Monocyte distribution width Auto (Bld) [Entitic vol] 18.97 1 Normal 0.00 - 20.00 Workflow SS Comment on above: Result Comment: For ED adult patients suspected of sepsis, MDW<=20.0 does not rule out sepsis or risk of sepsis Monocytes (Bld) [#/Vol] 0.5 103/mcL Normal 0.1 - 1.4 10^3/mcL AH Workflow SS Monocytes/100 WBC (Bld) 5.9 % Normal 2.0 - 13.0 % AH Workflow SS Neutrophils (Bld) [#/Vol] 4.9 103/mcL Normal 2.3 - 8.1 10^3/mcL AH Workflow SS Neutrophils/100 WBC (Bld) 61.8 % Normal 50.0 - 75.0 % AH Workflow SS Platelet mean volume (Bld) [Entitic vol] 8.6 fL Normal 6.4 - 10.5 fL AH Workflow SS Platelets (Bld) [#/Vol] 217 103/mcL Normal 150 - 450 10^3/mcL AH Workflow SS Potassium [Moles/Vol] 3.9 mmol/L Normal 3.5 - 5.0 mEq/L ADM SS RBC (Bld) [#/Vol] 4.45 106/mcL Low 4.50 - 6.0 0 10^6/mcL AH Workflow SS Sodium [Moles/Vol] 136 mmol/L Normal 136 - 145 mEq/L ADM SS Troponin I.cardiac DL <= 0.01 ng/mL [Mass/Vol] 4 ng/L Normal 0 - 54 ng/L ADM SS Comment on above: Interpretive Data: High Sensitive Troponin I Reference Ranges: Female: 0-34 ng/L Male: 0-54 ng/L Testing performed on Eat analyzer using direct chemiluminescent technology. Urea nitrogen [Mass/Vol] 8.0 mg/dL Normal 8.0 - 22.0 mg/dL ADM SS Urea nitrogen/Creatinine [Mass ratio] 8.0 ratio Low 10.0 - 22.0 ratio ADM SS WBC (Bld) [#/Vol] 8.0 103/mcL Normal 4.5 - 10.8 10^3/mcL Workflow SS LABORATORYOrdered By: Yumiko Arechiga on 09-19-2023 FLUAV RNA JUANITA+probe Ql (Resp) Negative 6 (09/19/23 9:56 AM) Normal Negative Auto Viro/Sero SS Comment on above: Result Comment: [place] [id number] FLUBV RNA JUANITA+probe Ql (Resp) Negative 7 (09/19/23 9:56 AM) Normal Negative Auto Viro/Sero SS Comment on above: Result Comment: [place] s [id number] RSV PCR Negative 8 (09/19/23 9:56 AM) Normal Negative AH Auto Viro/Sero SS Comment on above: Result Comment: Note s [id number] SARS-CoV-2 (COVID-19) RNA JUANITA+probe Ql (Resp) Negative 4, 5 (09/19/23 9:56 AM) Normal Negative AH Auto Viro/Sero SS Comment on above: Result Comment: [place] [id number] Interpretive Data: T his test has been authorized by FDA under an EUA for use by authorized laboratories and has not been FDA cleared or approved. Results from the Xpert Xpress SARS-CoV-2/Flu/RSV or Xpert Xpress SARS-CoV-2 only test should be correlated with the clinical history, epidemiological data, and other data available to the clinician evaluating the patient. Performance of the Xpert Xpress SARS-CoV-2/Flu/RSV or Xpert Xpress SARS-CoV-2 only test has only been established in nasopharyngeal swab specimens. Erroneous test results might occur from improper specimen collection; failure to follow the recommended sample collection, handling, and storage procedures; technical error; or sample mix-up.False negative results may occur if virus is present at levels below the analytical limit of detection. Viral nucleic acid may persist in vivo, independent of virus viability. Detection of analyte target(s) does not imply that the corresponding virus(es) are infectious or are the causative agents for clinical symptoms.Recent patient exposure to FluMist or other live attenuated influenza vaccines may cause inaccurate positive results. Clarence 09-19-2023 High Sensitivity Troponin I 4 ng/L Normal 0-54 [facility] ([place]) Comment on above: Result Comment: High Sensitive Troponin I Reference Ranges: Female: 0-34 ng/L Male: 0-54 ng/L Testing performed on [employer] IM analyzer using direct chemiluminescent technology. Performed By: #### C SRAVANI HERNDON, ANEU #### [place] [address] High Sensitivity Troponin I 4 ng/L Normal 0-54 [facility] ([place]) Comment on above: Result Comment: High Sensitive Troponin I Reference Ranges: Female: 0-34 ng/L Male: 0-54 ng/L Testing performed on [employer] IM analyzer using direct chemiluminescent technology. Performed By: #### C SRAVANI HERNDON, ANEU #### [address] [address] XR CHEST 1 VIEWon 09-19-2023 XR CHEST 1 VIEW ORIGINAL EXAMINATION: ONE XRAY VIEW OF THE CHEST 09/19/2023 9:05 am COMPARISON: 08/10/2023 HISTORY: ORDERING SYSTEM PROVIDED HISTORY: Reason for Exam: chest pain FINDINGS: The cardiomediastinal silhouette is unchanged. Linear airspace disease at the right base favors atelectasis or scarring. Minimal linear airspace disease in the left costophrenic angle is unchanged and favors atelectasis or scarring. No large effusion, vascular congestion, or pneumothorax. IMPRESSION: Bibasilar atelectasis or scarring. Interpreted by: Karie Curran MD Preliminary Report By: Karie Curran MD Electronically signed By Karie Curran MD Dictated Date: 09/19/2023 9:08:38 AM Prelim Date: 09/19/2023 9:09:23 AM Sign Date: 09/19/2023 9:09:23 AM Ordering Provider: NILAM Zayas [facility] ([place]) A1Con 09-08-2023 HbA1c (Bld) [Mass fraction] 6.0 % Normal 4.3-6.4 [facility] ([place]) Comment on above: Performed By: #### C SRAVANI HERNDON ANEU #### [address] [address] FT4on 09-08-2023 Free T4 [Mass/Vol] 0.78 ng/dL Normal 0.76-1.46 [facility] ([place]) Comment on above: Performed By: #### C SRAVANI HERNDON ANEU #### [address] [address] LIPIDon 09-08-2023 Cholesterol [Mass/Vol] 218 mg/dL High 0-200 [facility] ([place]) Comment on above: Result Comment: Chol esterol Reference Interval: Less than 200 Desirable 200-239 Borderline high risk 240 and above High risk Performed By: #### C SRAVANI HERNDON ANEU #### [address] [address] Cholesterol in HDL [Mass/Vol] 51 mg/dL Normal 40-60 [facility] ([place]) Comment on above: Performed By: #### SRAVANI CAMILO ANEU #### [place] [address] Cholesterol in LDL [Mass/Vol] 131 mg/dL High 0-130 [facility] ([place]) Comment on above: Performed By: #### SRAVANI CAMILO ANEU #### [place] [address] Triglyceride [Mass/Vol] 179 mg/dL High 0-150 [facility] ([place]) Comment on above: Result Comment: Trig lyceride Reference Interval: Less than 150 Normal 150-199 Borderline high risk 200-499 High risk 500 or higher Very high risk Performed By: #### SRAVANI CAMILO ANEU #### [place] [address] TSHon 09-08-2023 TSH Qn 1.68 m[IU]/L Normal 0.36-3.74 [facility] ([place]) Comment on above: Performed By: #### SRAVANI CAMILO ANEU #### [place] [address] VIDHon 09-08-2023 Vit. D 25-Hydroxy 31.0 ng/mL Normal [facility] ([place]) Comment on above: Result Comment: Inte rpretive Values Based on Total 25(OH) Vitamin D: Deficient <20 ng/mL Insufficient 20 - <30 ng/mL Sufficient 30-100 ng/mL Performed By: #### SRAVANI CAMILO ANEU #### [place] [address] XR SPINE LUMBAR AP/LAT/FLEX/ EXTon 09-08-2023 XR SPINE LUMBAR AP/LAT/FLEX/EXT ORIGINAL EXAMINATION: 4 XRAY VIEWS OF THE LUMBAR SPINE09/08/2023 11:34 am COMPARISON: CT abdomen pelvis 08/10/2023, CT lumbar spine 09/19/2021 HISTORY: ORDERING SYSTEM PROVIDED HISTORY: Reason for Exam: Low back pain radiates down legs FINDINGS: There are 5 uum-[id number]-hyqbsjw lumbar type vertebral bodies. Vertebral body heights are maintained. Intervertebral disc spaces are maintained. Small anterior marginal osteophytes seen at multiple levels. No dynamic instability on flexion-extension views. Sclerosis of the L5-S1 and L4-L5 facet joints.. . SI joints are symmetric. The visualized sacrum and pelvis are unremarkable. The visualized soft tissues exhibit no acute abnormalities. Small bilateral renal calculi. IMPRESSION: No compression deformity or significant listhesis. Minimal facet degeneration, greatest at L5-S1. I have personally reviewed the images of this examination and agree with the resident's findings and interpretation. Interpreted by: Yogi Durant DO Preliminary Report By: Dany Dangelo Electronically signed By Yogi Durant DO Dictated Date: 09/08/2023 2:02:13 PM Prelim Date: 09/08/2023 2:43:20 PM Sign Date: 09/08/2023 2:43:20 PM Ordering Provider: ORIN Zayas [facility] ([place]) US RENALon 08-26-2023 US RENAL ORIGINAL EXAMINATION: LIMITED RETROPERITONEAL ULTRASOUND08/26/2023 6:40 am TECHNIQUE: Multiple real time sonographic images of the urinary system were obtained assessing maher-scale appearance and color Doppler. COMPARISON: CT abdomen pelvis from 08/10/2023 and 05/01/2017 HISTORY: ORDERING SYSTEM PROVIDED HISTORY: Reason for Exam: renal cyst on CT FINDINGS: RIGHT KIDNEY: The right kidney is 11.7 cm in length. Normal echogenicity and no evidence for pelvicaliectasis, or abnormal perinephric fluid collection. Normal cortical thickness. 9 mm echogenic, nonobstructing lower pole renal calculus is noted. Multiple right renal cysts measuring up to 1.9 cm, some of which contain small internal septations. Additionally, there is a small hyperechoic cortical focus measuring up to 6 mm at the mid to lower pole. LEFT KIDNEY: The left kidney is 10.3 cm in length. Normal echogenicity and no evidence for pelvicaliectasis, or abnormal perinephric fluid collection. Normal cortical thickness. 9 mm echogenic nonobstructing lower pole renal calculus is noted. Multiple left renal cysts present, the largest of which is a 2.2 cm parapelvic cyst. Some of these cysts also have small internal septations. BLADDER: Unremarkable. IMPRESSION: Bilateral nonobstructing renal calculi measuring up to 9 mm. Bilateral renal cysts, some of which contain small internal septations. 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 I have personally reviewed the images of this examination and agree with the resident's findings and interpretation. Interpreted by: Kristen Bowden MD Preliminary Report By: Alan Marisabel Electronically signed By Kristen Bowden MD Dictated Date: 08/26/2023 1:25:54 PM Prelim Date: 08/26/2023 2:43:08 PM Sign Date: 08/26/2023 2:43:08 PM Ordering Provider: KARISSA Zayas [facility] ([place]) .Auto Diffon 08-10-2023 Basophil, Absolute 0.0 10 3/mcL Normal 0.0-0.3 [facility] ([place]) Comment on above: Performed By: #### A ERNIE MAYBERRY, PBNP, TROPHS, LIP, CMP, GFR, CBC, ADIFF ####[address] [address] Basophils/100 WBC (Bld) 0.2 % Normal 0.0-2.5 [facility] ([place]) Comment on above: Performed By: #### A ERNIE MAYBERRY, PBNP, TROPHS, LIP, CMP, GFR, CBC, ADIFF ####[address] [address] Eosinophil, Absolute 0.2 10 3/mcL Normal 0.0-0.7 [facility] ([place]) Comment on above: Performed By: #### A ERNIE MAYBERRY, PBNP, TROPHS, LIP, CMP, GFR, CBC, ADIFF ####[address] [address] Eosinophils/100 WBC (Bld) 1.8 % Normal 0.0-6.0 [facility] ([place]) Comment on above: Performed By: #### A ERNIE MAYBERRY, PBNP, TROPHS, LIP, CMP, GFR, CBC, ADIFF ####[address] [address] Lymphocyte, Absolute 3.3 10 3/mcL Normal 0.9-4.3 [facility] ([place]) Comment on above: Performed By: #### A ERNIE MAYBERRY, PBNP, TROPHS, LIP, CMP, GFR, CBC, ADIFF ####[address] [address] Lymphocytes/100 WBC (Bld) 36.6 % Normal 20.0-40.0 [facility] ([place]) Comment on above: Performed By: #### A ERNIE MAYBERRY, ELISE, TROPHS, LIP, CMP, GFR, CBC, ADIFF ####[address] [address] Monocyte, Absolute 0.5 10 3/mcL Normal 0.1-1.4 [facility] ([place]) Comment on above: Performed By: #### A ERNIE MAYBERRY, ELISE, TROPHS, LIP, CMP, GFR, CBC, ADIFF ####[address] [address] Monocytes/100 WBC (Bld) 5.1 % Normal 2.0-13.0 [facility] ([place]) Comment on above: Performed By: #### A ERNIE MAYBERRY, ELISE, TROPHS, LIP, CMP, GFR, CBC, ADIFF ####[address] [address] Neutrophils/100 WBC (Bld) 56.3 % Normal 50.0-75.0 [facility] ([place]) Comment on above: Performed By: #### A ERNIE MAYBERRY, ELISE, TROPHS, LIP, CMP, GFR, CBC, ADIFF ####[address] [address] .GFRon 08-10-2023 GFR >60 Normal [facility] ([place]) Comment on above: Result Comment: GFR Population mean for , Non- Americans Ages 20-29 = 116 mL/min/1.73 sq.m. Ages 30-39 = 107 mL/min/1.73 sq.m. Ages 40-49 = 99 mL/min/1.73 sq.m. Ages 50-59 = 93 mL/min/1.73 sq.m. Ages 60-69 = 85 mL/min/1.73 sq.m. Ages 70+ = 75 mL/min/1.73 sq.m. Chronic Kidney Disease: Less than 60 mL/min/1.73 square meters End Stage Renal Disease: Less than 15 mL/min/1.73 square meters Performed By: #### A ERNIE MAYBERRY, PBJOSH, TROPHS, LIP, CMP, GFR, CBC, ADIFF ####[address] [address] GFR Non- >60 Normal [facility] ([place]) Comment on above: Result Comment: GFR Population mean for , Non- Americans Ages 20-29 = 116 mL/min/1.73 sq.m. Ages 30-39 = 107 mL/min/1.73 sq.m. Ages 40-49 = 99 mL/min/1.73 sq.m. Ages 50-59 = 93 mL/min/1.73 sq.m. Ages 60-69 = 85 mL/min/1.73 sq.m. Ages 70+ = 75 mL/min/1.73 sq.m. Chronic Kidney Disease: Less than 60 mL/min/1.73 square meters End Stage Renal Disease: Less than 15 mL/min/1.73 square meters Performed By: #### A ERNIE MAYBERRY, PBNP, TROPHS, LIP, CMP, GFR, CBC, ADIFF ####[place] [address] .MDWon 08-10-2023 Monocyte Distribution Width 17.00 Normal 0.00-20.00 [facility] ([place]) Comment on above: Result Comment: For ED adult patients suspected of sepsis, MDW<=20.0 does not rule out sepsis or risk of sepsis Performed By: #### A ERNIE MAYBERRY, ELISE, TROPHS, LIP, CMP, GFR, CBC, ADIFF ####[place] [address] .NEUABSon 08-10-2023 Neutrophil, Absolute 5.0 10 3/mcL Normal 2.3-8.1 [facility] ([place]) Comment on above: Performed By: #### A ERNIE MAYBERRY, PBJOSH, TROPHS, LIP, CMP, GFR, CBC, ADIFF ####[place] [address] CBCon 08-10-2023 Erythrocyte distribution width (RBC) [Ratio] 13.8 % Normal 11.5-15.5 [facility] ([place]) Comment on above: Performed By: #### A ERNIE MAYBERRY, ELISE, TROPHS, LIP, CMP, GFR, CBC, ADIFF ####[place] [address] Hematocrit (Bld) [Volume fraction] 44.2 % Normal 40.0-52.0 [facility] ([place]) Comment on above: Performed By: #### A ERNIE MAYBERRY, PBNP, TROPHS, LIP, CMP, GFR, CBC, ADIFF ####[place] [address] Hgb 14.9 G/dL Normal 13.0-17.5 [facility] ([place]) Comment on above: Performed By: #### A ERNIE MAYBERRY, ELISE, TROPHS, LIP, CMP, GFR, CBC, ADIFF ####[place] [address] MCH (RBC) [Entitic mass] 30.9 pg Normal 27.0-33.0 [facility] ([place]) Comment on above: Performed By: #### A ERNIE MAYBERRY, ELISE, TROPHS, LIP, CMP, GFR, CBC, ADIFF ####[place] [address] MCHC 33.8 G/dL Normal 32.0-36.0 [facility] ([place]) Comment on above: Performed By: #### A ERNIE MAYBERRY, ELISE, TROPHS, LIP, CMP, GFR, CBC, ADIFF ####[place] [address] MCV (RBC) [Entitic vol] 91.4 fL Normal 81.0-100.0 [facility] ([place]) Comment on above: Performed By: #### A ERNIE MAYBERRY, PBJOSH, TROPHS, LIP, CMP, GFR, CBC, ADIFF ####[place] [address] Platelet 233 10 3/mcL Normal 150-450 [facility] ([place]) Comment on above: Performed By: #### A ERNIE MAYBERRY, PBNP, TROPHS, LIP, CMP, GFR, CBC, ADIFF ####[place] [address] Platelet mean volume (Bld) [Entitic vol] 8.3 fL Normal 6.4-10.5 [facility] ([place]) Comment on above: Performed By: #### A ERNIE MAYBERRY, ELISE, TROPHS, LIP, CMP, GFR, CBC, ADIFF ####[place] [id number] RBC 4.83 10 6/mcL Normal 4.50-6.00 [facility] ([place]) Comment on above: Performed By: #### A ERNIE MAYBERRY, ELISE, TROPHS, LIP, CMP, GFR, CBC, ADIFF ####[place] [address] WBC 8.9 10 3/mcL Normal 4.5-10.8 [facility] ([place]) Comment on above: Performed By: #### A ERNIE MAYBERRY, ELISE, TROPHS, LIP, CMP, GFR, CBC, ADIFF ####[place] [address] CMPon 08-10-2023 Albumin Level 4.1 G/dL Normal 3.2-4.8 [facility] ([place]) Comment on above: Performed By: #### A ERNIE MAYBERRY, ELISE, TROPHS, LIP, CMP, GFR, CBC, ADIFF ####[place] [address] Albumin/Globulin [Mass ratio] 1.2 {ratio} Normal 0.9-1.6 [facility] ([place]) Comment on above: Performed By: #### A ERNIE MAYBERRY, ELISE, TROPHS, LIP, CMP, GFR, CBC, ADIFF ####[place] [address] ALP [Catalytic activity/Vol] 82 U/L Normal 38-126 [facility] ([place]) Comment on above: Performed By: #### A ERNIE MAYBERRY, ELISE, TROPHS, LIP, CMP, GFR, CBC, ADIFF ####[place] [id number] ALT [Catalytic activity/Vol] 12 U/L Normal 12-55 [facility] ([place]) Comment on above: Performed By: #### A ERNIE MAYBERRY, PBJOSH, TROPHS, LIP, CMP, GFR, CBC, ADIFF ####[address] [address] AST [Catalytic activity/Vol] 29 U/L Normal 8-34 [facility] ([place]) Comment on above: Performed By: #### A ERNIE MAYBERRY, PBNP, TROPHS, LIP, CMP, GFR, CBC, ADIFF ####[address] [address] Bili Total 0.50 mg/dL Normal 0.20-1.20 [facility] ([place]) Comment on above: Result Comment: Use of this assay is not recommended for patients undergoing treatment with eltrombopag due to the potential for falsely elevated results. Performed By: #### A ERNIE MAYBERRY, ELISE, TROPHS, LIP, CMP, GFR, CBC, ADIFF ####[place] [id number] BUN/Creatinine Ratio 8.7 ratio Low 10.0-22.0 [facility] ([place]) Comment on above: Performed By: #### A ERNIE MAYBERRY, PBJOSH, TROPHS, LIP, CMP, GFR, CBC, ADIFF ####[address] [address] Calcium [Mass/Vol] 9.7 mg/dL Normal 8.7-10.4 [facility] ([place]) Comment on above: Performed By: #### A ERNIE MAYBERRY, PBJOSH, TROPHS, LIP, CMP, GFR, CBC, ADIFF ####[address] [address] Chloride [Moles/Vol] 106 mmol/L Normal 98-110 [facility] ([place]) Comment on above: Performed By: #### A ERNIE MAYBERRY, PBJOSH, TROPHS, LIP, CMP, GFR, CBC, ADIFF ####[address] [address] CO2 [Moles/Vol] 25 mmol/L Normal 22-32 [facility] ([place]) Comment on above: Performed By: #### A ERNIE MAYBERRY, PBJOSH, TROPHS, LIP, CMP, GFR, CBC, ADIFF ####[address] [address] Creatinine [Mass/Vol] 0.92 mg/dL Normal 0.60-1.40 [facility] ([place]) Comment on above: Performed By: #### A ERNIE MAYBERRY, PBNP, TROPHS, LIP, CMP, GFR, CBC, ADIFF ####[place] [address] Electrolyte Balance 6.0 mEq/L Normal 4.0-15.0 [facility] ([place]) Comment on above: Performed By: #### A RENIE MAYBERRY, PBJOSH, TROPHS, LIP, CMP, GFR, CBC, ADIFF ####[place] [id number] Globulin 3.4 G/dL Normal 1.5-3.8 [facility] ([place]) Comment on above: Performed By: #### A ERNIE MAYBERRY, ELISE, TROPHS, LIP, CMP, GFR, CBC, ADIFF ####[address] [address] Glucose [Mass/Vol] 90 mg/dL Normal 70-110 [facility] ([place]) Comment on above: Performed By: #### A ERNIE MAYBERRY, ELISE, TROPHS, LIP, CMP, GFR, CBC, ADIFF ####[address] [address] Potassium [Moles/Vol] 3.9 mmol/L Normal 3.5-5.0 [facility] ([place]) Comment on above: Performed By: #### A ERNIE MAYBERRY, ELISE, TROPHS, LIP, CMP, GFR, CBC, ADIFF ####[address] [address] Sodium [Moles/Vol] 137 mmol/L Normal 136-145 [facility] ([place]) Comment on above: Performed By: #### A ERNIE MAYBERRY, PBNP, TROPHS, LIP, CMP, GFR, CBC, ADIFF ####[place] [id number] [address] [place] [address] Total Protein 7.5 G/dL Normal 5.7-8.2 [facility] ([place]) Comment on above: Result Comment: No te - New Reference Range in effect 20 Performed By: #### A ERNIE MAYBERRY, PBNP, TROPHS, LIP, CMP, GFR, CBC, ADIFF ####[place] [address] [address] [place] [address] Urea nitrogen [Mass/Vol] 8.0 mg/dL Normal 8.0-22.0 [facility] ([place]) Comment on above: Performed By: #### A ERNIE MAYBERRY, PBNP, TROPHS, LIP, CMP, GFR, CBC, ADIFF ####[place] [address] [address] [place] [address] [address] ABD/PELVIS W/ IV CONTRAST ONLYon 08-10-2023 CT ABD/PELVIS W/ IV CONTRAST ONLY ORIGINAL EXAMINATION: CT OF THE ABDOMEN AND PELVIS WITH CONTRAST08/10/2023 12:45 pm TECHNIQUE: CT of the abdomen and pelvis was performed with the administration of intravenous contrast. Multiplanar reformatted images are provided for review. Automated exposure control, iterative reconstruction, and/or weight based adjustment of the mA/kV was utilized to reduce the radiation dose to as low as reasonably achievable. COMPARISON: 05/01/2017 HISTORY: ORDERING SYSTEM PROVIDED HISTORY: Reason for Exam: LLQ ABD PAIN abd pain, bloating FINDINGS: Dependent atelectasis noted. There is a 2 mm nodule in the left upper lobe. Scarring/atelectasis also noted in the lingula. The heart is normal in size. The liver, spleen, adrenal glands, and pancreas are within normal limits. The gallbladder is surgically absent. The common duct is mildly dilated, presumably due to prior cholecystectomy. The kidneys enhance symmetrically. Numerous low-density renal lesions are likely cysts. Some of the lesions have a mildly complex attenuation value. A sales representative church furniture complex lesion in the left kidney is 40 Hounsfield units and 1.7 cm. Small bilateral renal calculi noted. No ureter calculus or hydronephrosis seen. The bladder is poorly distended. The large and small bowel demonstrate no obstruction. The appendix is normal. Diverticulosis noted. No definite active inflammation. The aorta is normal in caliber. There is mild atherosclerosis of the larger arteries. There is no lymphadenopathy. A lymph node along the right external iliac artery chain on image 97 measures 8 mm in short axis. Other subcentimeter short axis lymph nodes seen in the pelvis and do not currently meet criteria for lymphadenopathy. No filling defects seen in the urinary bladder. There is no acute fracture or aggressive osseous lesion. Mild degenerative changes seen of the spine and hips. IMPRESSION: 1. Diverticulosis. No definite active inflammation. 2. Numerous low-density renal lesions are likely cysts. Some of the lesions have a complex attenuation value. Renal ultrasound advised to exclude a solid renal mass. 3. Nephrolithiasis. No urinary obstruction 4. Other incidental findings, as above. 5. 2 mm left solid pulmonary nodule within the upper lobe. Per Fleischner Society Guidelines, if patient is low risk for malignancy, no routine follow-up imaging is recommended. If patient is high risk for malignancy, a non-contrast Chest CT at 12 months is optional. If performed and the nodule is stable at 12 months, no further follow-up is recommended. These guidelines do not apply to immunocompromised patients and patients with cancer. Follow up in patients with significant comorbidities as clinically warranted. For lung cancer screening, adhere to Lung-RADS guidelines. Reference: Radiology. 2017; 284(1):228-43. Interpreted by: Yogi Sunshine MD Preliminary Report By: Yogi Sunshine MD Electronically signed By Yogi Sunshine MD Dictated Date: 08/10/2023 12:54:27 PM Prelim Date: 08/10/2023 1:00:12 PM Sign Date: 08/10/2023 1:00:12 PM Ordering Provider: SAIRA Zayas [facility] ([place]) LABORATORYOrdered By: SYSTEM SYSTEM on 08-10-2023 Albumin BCP dye [Mass/Vol] 4.1 G/dL Normal 3.2 - 4.8 G/dL AH ADM SS Albumin/Globulin [Mass ratio] 1.2 {ratio} Normal 0.9 - 1.6 ratio AH ADM SS ALP [Catalytic activity/Vol] 82 U/L Normal 38 - 126 U/L AH ADM SS ALT No additional P-5'-P [Catalytic activity/Vol] 12 U/L Normal 12 - 55 U/L AH ADM SS AST [Catalytic activity/Vol] 29 U/L Normal 8 - 34 U/L ADM SS Basophils (Bld) [#/Vol] 0.0 103/mcL Normal 0.0 - 0.3 10^3/mcL AH Workflow SS Basophils/100 WBC (Bld) 0.2 % Normal 0.0 - 2.5 % Workflow SS Bilirubin [Mass/Vol] 0.50 mg/dL Normal 0.20 - 1.20 mg/dL ADM SS Comment on above: Interpretive Data: U se of this assay is not recommended for patients undergoing treatment with eltrombopag due to the potential for falsely elevated results. Calcium [Mass/Vol] 9.7 mg/dL Normal 8.7 - 10. 4 mg/dL ADM SS Chloride [Moles/Vol] 106 mmol/L Normal 98 - 11 0 mEq/L ADM SS CO2 [Moles/Vol] 25 mmol/L Normal 22 - 32 mEq/L ADM SS Creatinine [Mass/Vol] 0.92 mg/dL Normal 0.60 - 1.40 mg/dL ADM SS Electrolyte Balance 6.0 mEq/L Normal 4.0 - 15 .0 mEq/L ADM SS Eosinophils (Bld) [#/Vol] 0.2 103/mcL Normal 0.0 - 0.7 10^3/mcL Workflow SS Eosinophils/100 WBC (Bld) 1.8 % Normal 0.0 - 6.0 % Workflow SS Erythrocyte distribution width (RBC) [Ratio] 13.8 % Normal 11.5 - 15.5 % Workflow SS GFR/1.73 sq M.predicted among blacks MDRD (S/P/Bld) [Vol rate/Area] ml/min/1.73sqm Invalid Interpretation Code ADM SS Comment on above: Interpretive Data: GFR Population mean for , Non- Americans Ages 20-29 = 116 mL/min/1.73 sq.m. Ages 30-39 = 107 mL/min/1.73 sq.m. Ages 40-49 = 99 mL/min/1.73 sq.m. Ages 50-59 = 93 mL/min/1.73 sq.m. Ages 60-69 = 85 mL/min/1.73 sq.m. Ages 70+ = 75 mL/min/1.73 sq.m. Chronic Kidney Disease: Less than 60 mL/min/1.73 square meters End Stage Renal Disease: Less than 15 mL/min/1.73 square meters GFR/1.73 sq M.predicted among non-blacks MDRD (S/P/Bld) [Vol rate/Area] ml/min/1.73sqm Invalid Interpretation Code [facility] Comment on above: Interpretive Data: GFR Population mean for , Non- Americans Ages 20-29 = 116 mL/min/1.73 sq.m. Ages 30-39 = 107 mL/min/1.73 sq.m. Ages 40-49 = 99 mL/min/1.73 sq.m. Ages 50-59 = 93 mL/min/1.73 sq.m. Ages 60-69 = 85 mL/min/1.73 sq.m. Ages 70+ = 75 mL/min/1.73 sq.m. Chronic Kidney Disease: Less than 60 mL/min/1.73 square meters End Stage Renal Disease: Less than 15 mL/min/1.73 square meters Globulin 3.4 G/dL Normal 1.5 - 3.8 G/dL [facility] Glucose [Mass/Vol] 90 mg/dL Normal 70 - 110 mg/dL [facility] Hematocrit (Bld) [Volume fraction] 44.2 % Normal 40.0 - 52.0 % Workflow Hemoglobin (Bld) [Mass/Vol] 14.9 G/dL Normal 13.0 - 17.5 G/dL [facility] Lipase [Catalytic activity/Vol] 36 U/L Normal 12 - 53 U/L [facility] Comment on above: Interpretive Data: * *Note - New Reference Range in effect 20 Lymphocytes (Bld) [#/Vol] 3.3 103/mcL Normal 0.9 - 4.3 10^3/mcL Workflow SS Lymphocytes/100 WBC (Bld) 36.6 % Normal 20.0 - 40.0 % Workflow SS MCH (RBC) [Entitic mass] 30.9 pg Normal 27.0 - 33.0 pg [facility] SS MCHC 33.8 G/dL Normal 32.0 - 36.0 G/dL Workflow SS MCV (RBC) [Entitic vol] 91.4 fL Normal 81.0 - 100.0 fL Workflow SS Monocyte distribution width Auto (Bld) [Entitic vol] 17.00 1 Normal 0.00 - 20.00 AH Workflow SS Comment on above: Result Comment: For ED adult patients suspected of sepsis, MDW<=20.0 does not rule out sepsis or risk of sepsis Monocytes (Bld) [#/Vol] 0.5 103/mcL Normal 0.1 - 1.4 10^3/mcL AH Workflow SS Monocytes/100 WBC (Bld) 5.1 % Normal 2.0 - 13.0 % AH Workflow SS Neutrophils (Bld) [#/Vol] 5.0 103/mcL Normal 2.3 - 8.1 10^3/mcL AH Workflow SS Neutrophils/100 WBC (Bld) 56.3 % Normal 50.0 - 75.0 % AH Workflow SS Platelet mean volume (Bld) [Entitic vol] 8.3 fL Normal 6.4 - 10.5 fL AH Workflow SS Platelets (Bld) [#/Vol] 233 103/mcL Normal 150 - 450 10^3/mcL AH Workflow SS Potassium [Moles/Vol] 3.9 mmol/L Normal 3.5 - 5.0 mEq/L AH ADM SS Protein [Mass/Vol] 7.5 G/dL Normal 5.7 - 8.2 G/dL AH ADM SS Comment on above: Interpretive Data: * *Note - New Reference Range in effect 20 RBC (Bld) [#/Vol] 4.83 106/mcL Normal 4.50 - 6.0 0 10^6/mcL AH Workflow SS Sodium [Moles/Vol] 137 mmol/L Normal 136 - 145 mEq/L ADM SS Troponin I.cardiac DL <= 0.01 ng/mL [Mass/Vol] 3.78 ng/L Normal 0.00 - 54.00 ng/L AH ADM SS Urea nitrogen [Mass/Vol] 8.0 mg/dL Normal 8.0 - 22.0 mg/dL AH ADM SS Urea nitrogen/Creatinine [Mass ratio] 8.7 ratio Low 10.0 - 22.0 ratio AH ADM SS WBC (Bld) [#/Vol] 8.9 103/mcL Normal 4.5 - 10.8 10^3/mcL AH Workflow SS LABORATORYOrdered By: Paulina Ferguson on 08-10-2023 Appearance (U) Clear (08/10/23 11:06 AM) Normal Clear AH Auto Urine SS Bilirubin Ql (U) Negative (08/10/23 11:06 AM) Normal Neg-Trace AH Auto Urine SS Color (U) Colorless (08/10/23 11:06 AM) Normal AH Auto Urine SS Glucose Test strip (U) [Mass/Vol] Negative Normal Negative AH Auto Urine SS Hemoglobin Auto test strip (U) [Mass/Vol] Trace (08/10/23 11:06 AM) Normal Neg-Trace AH Auto Urine SS Ketones Ql (U) Negative Normal Neg-Trace AH Auto Urine SS UA Leuk Est Negative (08/10/23 11:06 AM) Normal Negative AH Auto Urine SS UA Nitrite Negative (08/10/23 11:06 AM) Normal Negative AH Auto Urine SS UA pH 6.0 (08/10/23 11:06 AM) Normal 5.0 - 8.0 AH Auto Urine SS UA Protein Negative Normal Negative AH Auto Urine SS UA Spec Grav <=1.005 *ABN* (08/10/23 11:06 AM) Invalid Interpretation Code 1.006-1.029 AH Auto Urine SS UA Specimen Type Not Given (08/10/23 11:06 AM) Normal AH Auto Urine SS UA Urobilinogen 0.2 E.U./dL Normal 0.2-1.0 AH Auto Urine SS LABORATORYOrdered By: Lefty Westfall on 08-10-2023 Natriuretic peptide.B prohormone N-Terminal [Mass/Vol] pg/mL Normal 0 - 900 pg/mL AH Auto Chem SS Comment on above: Interpretive Data: N T-proBNP results of less than 300 pg/mL effectively rules out acute congestive heart failure with 99% negative predictive value. LIPon 08-10-2023 Lipase Level 36 U/L Normal 12-53 [facility] ([place]) Comment on above: Result Comment: No te - New Reference Range in effect 20 Performed By: #### A JEFE, ERNIE, PBJOSH, TROPHS, LIP, CMP, GFR, CBC, ADIFF ####[place] [address] PBNPon 08-10-2023 N-Terminal proBNP <15 Normal 0-900 [facility] ([place]) Comment on above: Result Comment: NT-p roBNP results of less than 300 pg/mL effectively rules out acute congestive heart failure with 99% negative predictive value. Performed By: #### A ERNIE MAYBERRY, ELISE, TROPHS, LIP, CMP, GFR, CBC, ADIFF ####[place] [id number] TROPHSon 08-10-2023 Troponin I High Sensitivity 3.78 ng/L Normal 0.00-54.00 [facility] ([place]) Comment on above: Performed By: #### A ERNIE MAYBERRY, ELISE, TROPHS, LIP, CMP, GFR, CBC, ADIFF ####[place] [id number] UAon 08-10-2023 Color (U) Colorless Normal [facility] ([place]) Comment on above: Performed By: #### C SRAVANI HERNDON, ANEU #### [place] [address] Glucose (U) [Mass/Vol] Negative Normal Negative [facility] ([place]) Comment on above: Performed By: #### C SRAVANI HERNDON, ANEU #### [place] [address] Ketones Ql (U) Negative Normal Neg-Trace [facility] ([place]) Comment on above: Performed By: #### C SRAVANI HERNDON, ANEU #### [place] [address] UA Appear Clear Normal Clear [facility] ([place]) Comment on above: Performed By: #### C SRAVANI HERNDON, ANEU #### [place] [id number] UA Blood Trace Normal Neg-Trace [facility] ([place]) Comment on above: Performed By: #### C SRAVANI HERNDON, ANEU #### [address] [address] UA Leuk Est Negative Normal Negative [facility] ([place]) Comment on above: Performed By: #### C SRAVANI HERNDON, ANEU #### [address] [address] UA Nitrite Negative Normal Negative [facility] ([place]) Comment on above: Performed By: #### C SRAVANI HERNDON, ANEU #### [address] [address] UA pH 6.0 Normal 5.0 - 8.0 [facility] ([place]) Comment on above: Performed By: #### C SRAVANI HERNDON, ANEU #### [address] [address] UA Protein Negative Normal Negative [facility] ([place]) Comment on above: Performed By: #### C SRAVANI HERNDON, ANEU #### [address] [address] UA Spec Grav <=1.005 Abnormal 1.006-1.029 [facility] ([place]) Comment on above: Performed By: #### C SRAVANI HERNDON ANEU #### [address] [address] UA Specimen Type Not Given Normal [facility] ([place]) Comment on above: Performed By: #### C SRAVANI HERNDON, ANEU #### [address] [address] UA Urobilinogen 0.2 E.U./dL Normal 0.2-1.0 [facility] ([place]) Comment on above: Performed By: #### SRAVANI CAMILO ANEU #### [address] [address] Urobilinogen (U) [Mass/Vol] Negative Normal Neg-Trace [facility] ([place]) Comment on above: Performed By: #### SRAVANI CAMILO, ANEU #### [place] [address] XR CHEST 1 VIEWon 08-10-2023 XR CHEST 1 VIEW ORIGINAL EXAMINATION: ONE XRAY VIEW OF THE CHEST08/10/2023 11:03 am XR Chest portable upright COMPARISON: 07/28/2023 from [facility] HISTORY: ORDERING SYSTEM PROVIDED HISTORY: Reason for Exam: cp, FINDINGS: No suspicious nodule, acute infiltrate, consolidation,mass, pneumothorax, pleural fluid, or vascular congestion is seen. Heart size and mediastinal contours are within normal limits for age and projection. No acute skeletal abnormality. IMPRESSION: No acute cardiopulmonary process. Interpreted by: Landon Scruggs MD Preliminary Report By: Landon Scruggs MD Electronically signed By Landon Scruggs MD Dictated Date: 08/10/2023 11:22:33 AM Prelim Date: 08/10/2023 11:22:55 AM Sign Date: 08/10/2023 11:22:55 AM Ordering Provider: SAIRA Zayas [facility] (ID) Basic metabolic 2000 panelon 07-28-2023 Anion gap [Moles/Vol] 8 mmol/L Low 9-18 [facility] Comment on above: Order Comment: Speci men Type: BLOOD SPECIMEN [facility] Facility[facility] Address: [address] [place] [address] Performed By: #### 2 4325-3, 12927-9 #### [facility] CLIA [id number] [address] [place] [address] [place] Calcium [Mass/Vol] 8.6 mg/dL Normal 8.5-10.2 [facility] Comment on above: Order Comment: Speci men Type: BLOOD SPECIMEN Ordering Facility: [facility] Address: [address] [place] [address] Performed By: #### 2 4325-3, 22221-0 #### [facility] CLIA [id number] [address] [place] [address] [place] Chloride [Moles/Vol] 104 mmol/L Normal 97-105 [facility] Comment on above: Order Comment: Speci men Type: BLOOD SPECIMEN [facility]ing Facility[facility] Address: [address] [place] [address] Performed By: #### 2 4325-3, 36713-1 #### [facility] CLIA [id number] [address] [place] [address] [place] CO2 [Moles/Vol] 24 mmol/L Normal -30 [facility] Comment on above: Order Comment: Speci men Type: BLOOD SPECIMEN [facility] Facility[facility] Address: [address] [place] [address] Performed By: #### 2 4325-3, 78886-4 #### [facility] CLIA [id number] [address] [place] [address] [place] Creatinine [Mass/Vol] 1.00 mg/dL Normal 0.73-1.22 [facility] Comment on above: Order Comment: Sarah gentile Type: BLOOD SPECIMEN [facility] Facility[facility] Address: [address] [place] [address] Performed By: #### 2 4325-3, 71519-1 #### [facility] CLIA [id number] [address] [place] [address] [place] Creatinine and Glomerular filtration rate.predicted panel (S/P/Bld) 92 mL/min/1.73m??? Normal >=60 [facility] Comment on above: Order Comment: Sarah gentile Type: BLOOD SPECIMEN Order[facility] Facility[facility] Address: [address] [place] [address] Result Comment: Annie mated Glomerular Filtration Rate (eGFR) is calculated using the 2020 CKD-EPI creatinine equation. This equation utilizes serum creatinine, sex, and age as parameters. The creatinine assay has traceable calibration to isotope dilution-mass spectrometry. Refer to KDIGO guidelines for clinical interpretation. In patients with unstable renal function, e.g. those with acute kidney injury, the eGFR may not accurately reflect actual GFR. Performed By: #### 2 4325-3, 68558-9 #### [facility] CLIA [id number] [address] [place] [address] [place] Glucose [Mass/Vol] 93 mg/dL Normal 74-99 [facility] Comment on above: Order Comment: Sarah gentile Type: BLOOD SPECIMEN [facility] Facility: [facility] Address: [address] [place] [address] Result Comment: The [place] Diabetes [employer] (ADA) provides guidance for cutoff values for fasting glucose and random glucose. The ADA defines fasting as no caloric intake for at least 8 hours. Fasting plasma glucose results between 100 to 125 mg/dL indicate increased risk for diabetes (prediabetes). Fasting plasma glucose results greater than or equal to 126 mg/dL meet the criteria for diagnosis of diabetes. In the absence of unequivocal hyperglycemia, results should be confirmed by repeat testing. In a patient with classic symptoms of hyperglycemia or hyperglycemic crisis, random plasma glucose results greater than or equal to 200 mg/dL meet the criteria for diagnosis of diabetes. Reference: Standards of Medical Care in Diabetes 2016, [place] [employer]. Diabetes Care. 2016.39(Suppl 1). Performed By: #### 2 4325-3, 63725-0 #### [facility] CLIA [id number] [address] [place] [address] [place] Potassium [Moles/Vol] 4.0 mmol/L Normal 3.7-5.1 [facility] Comment on above: Order Comment: Speci men Type: BLOOD SPECIMEN [facility] Address: [address] [place] [address] Performed By: #### 2 4325-3, 45537-5 #### [facility] CLIA [id number] [address] [place] [address] [place] Sodium [Moles/Vol] 136 mmol/L Normal 136-144 [facility] Comment on above: Order Comment: Speci men Type: BLOOD SPECIMEN [facility] Address: [address] [place] [address] Performed By: #### 2 4325-3, 03906-1 #### [facility] CLIA [id number] [address] [place] [address] [place] Urea nitrogen [Mass/Vol] 8 mg/dL Low 9-24 [facility] Comment on above: Order Comment: Speci men Type: BLOOD SPECIMEN [facility] Address: [address] [place] [address] Performed By: #### 2 4325-3, 43003-4 #### [facility] CLIA [id number] [address] [place] [address] [place] CBC W Auto Differential pane l (Bld)on 07-28-2023 Basophils (Bld) [#/Vol] 10*3/uL Normal <0.11 [facility] Comment on above: Order Comment: Speci men Type: BLOOD SPECIMEN Order[facility] Facility[facility] Address: [address] [place] [address] Performed By: #### 5 7021-8 #### [facility] CLIA [id number] [address] [place] [address] [place] Basophils/100 WBC (Bld) 0.3 % Normal [facility] Comment on above: Order Comment: Speci men Type: BLOOD SPECIMEN [facility] Address: [address] [place] [address] Performed By: #### 5 7021-8 #### [facility] CLIA [id number] [address] [place] [address] [place] Differential cell count method Nom (Bld) Auto Normal [facility] Comment on above: Order Comment: Speci men Type: BLOOD SPECIMEN [facility] Address: [address] [place] [address] Performed By: #### 5 7021-8 #### [facility] CLIA [id number] [address] [place] [address] [place] Eosinophils (Bld) [#/Vol] 0.15 10*3/uL Normal <0.46 [facility] Comment on above: Order Comment: Speci men Type: BLOOD SPECIMEN Order[facility] Address: [address] [place] [address] Performed By: #### 5 7021-8 #### [facility] CLIA [id number] [address] [place] [address] [place] Eosinophils/100 WBC (Bld) 2.0 % Normal [facility] Comment on above: Order Comment: Speci men Type: BLOOD SPECIMEN Order[facility] Address: [address] [place] [address] Performed By: #### 5 7021-8 #### [facility] CLIA [id number] [address] [place] [address] [place] Erythrocyte distribution width (RBC) [Ratio] 13.2 % Normal 11.5-15.0 [facility] Comment on above: Order Comment: Speci men Type: BLOOD SPECIMEN Order[facility] Address: [address] [place] [address] Performed By: #### 5 7021-8 #### [facility] CLIA [id number] [address] [place] [address] [place] Hematocrit (Bld) [Volume fraction] 39.7 % Normal 39.0-51.0 [facility] Comment on above: Order Comment: Speci men Type: BLOOD SPECIMEN Order[facility] Facility[facility] Address: [address] [place] [address] Performed By: #### 5 7021-8 #### [facility] CLIA [id number] [address] [place] [address] [place] Hemoglobin (Bld) [Mass/Vol] 13.7 g/dL Normal 13.0-17.0 [facility] Comment on above: Order Comment: Speci men Type: BLOOD SPECIMEN Order[facility] Address: [address] [place] [address] Performed By: #### 5 7021-8 #### [facility] CLIA [id number] [address] [place] [address] [place] Immature granulocytes (Bld) [#/Vol] 10*3/uL Normal <0.10 [facility] Comment on above: Order Comment: Speci men Type: BLOOD SPECIMEN Order[facility] Address: [address] [place] [address] Performed By: #### 5 7021-8 #### [facility] CLIA [id number] [address] [place] [address] [place] Immature granulocytes/100 WBC (Bld) 0.3 % Normal [facility] Comment on above: Order Comment: Speci men Type: BLOOD SPECIMEN [facility] Address: [address] [place] [address] Performed By: #### 5 7021-8 #### [facility] CLIA [id number] [address] [place] [address] [place] Lymphocytes (Bld) [#/Vol] 2.37 10*3/uL Normal 1.00-4.00 [facility] Comment on above: Order Comment: Speci men Type: BLOOD SPECIMEN Order[facility] Facility[facility] Address: [address] [place] [address] Performed By: #### 5 7021-8 #### [facility] CLIA [id number] [address] [place] [address] [place] Lymphocytes/100 WBC (Bld) 31.9 % Normal [facility] Comment on above: Order Comment: Speci men Type: BLOOD SPECIMEN Order[facility] Address: [address] [place] [address] Performed By: #### 5 7021-8 #### [facility] CLIA [id number] [address] [place] [address] [place] MCH (RBC) [Entitic mass] 31.4 pg Normal 26.0-34.0 [facility] Comment on above: Order Comment: Speci men Type: BLOOD SPECIMEN Order[facility] Address: [address] [place] [address] Performed By: #### 5 7021-8 #### [facility] CLIA [id number] [address] [place] [address] [place] MCHC (RBC) [Mass/Vol] 34.5 g/dL Normal 30.5-36.0 [facility] Comment on above: Order Comment: Speci men Type: BLOOD SPECIMEN Order[facility] Address: [address] [place] [address] Performed By: #### 5 7021-8 #### [facility] CLIA [id number] [address] [place] [address] [place] MCV (RBC) [Entitic vol] 91.1 fL Normal 80.0-100.0 [facility] Comment on above: Order Comment: Speci men Type: BLOOD SPECIMEN Order[facility] Address: [address] [place] [address] Performed By: #### 5 7021-8 #### [facility] CLIA [id number] [address] [place] [address] [place] Monocytes (Bld) [#/Vol] 0.43 10*3/uL Normal <0.87 [facility] Comment on above: Order Comment: Speci men Type: BLOOD SPECIMEN Order[facility] Address: [address] [place] [address] Performed By: #### 5 7021-8 #### [facility] CLIA [id number] [address] [place] [address] [place] Monocytes/100 WBC (Bld) 5.8 % Normal [facility] Comment on above: Order Comment: Speci men Type: BLOOD SPECIMEN [facility] Address: [address] [place] [address] Performed By: #### 5 7021-8 #### [facility] CLIA [id number] [address] [place] [address] [place] Neutrophils (Bld) [#/Vol] 4.45 10*3/uL Normal 1.45-7.50 [facility] Comment on above: Order Comment: Speci men Type: BLOOD SPECIMEN Order[facility] Address: [address] [place] [address] Performed By: #### 5 7021-8 #### [facility] CLIA [id number] [address] [place] [address] [place] Neutrophils/100 WBC (Bld) 59.7 % Normal [facility] Comment on above: Order Comment: Speci men Type: BLOOD SPECIMEN Order[facility] Address: [address] [place] [address] Performed By: #### 5 7021-8 #### [facility] CLIA [id number] [address] [place] [address] [place] Nucleated RBC (Bld) [#/Vol] 10*3/uL Normal <0.01 [facility] Comment on above: Order Comment: Speci men Type: BLOOD SPECIMEN Order[facility] Address: [address] [place] [address] Performed By: #### 5 7021-8 #### [facility] CLIA [id number] [address] [place] [address] [place] Nucleated RBC/100 WBC (Bld) [Ratio] 0.0 /100 WBC Normal [facility] Comment on above: Order Comment: Speci men Type: BLOOD SPECIMEN [facility] Address: [address] [place] [address] Performed By: #### 5 7021-8 #### [facility] CLIA [id number] [address] [place] [address] [place] Platelet mean volume (Bld) [Entitic vol] 10.3 fL Normal 9.0-12.7 [facility] Comment on above: Order Comment: Speci men Type: BLOOD SPECIMEN [facility] Address: [address] [place] [address] Performed By: #### 5 7021-8 #### [facility] CLIA [id number] [address] [place] [address] [place] Platelets (Bld) [#/Vol] 213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 acute fracture. Mild lower lumbar facet degenerative disease. Electronically signed By Kristen Bowden MD 03/04/2023 11:02:18 AM EST Workstation ID : [id number] REPORT SIGNATURE ON FILE Electronically Signed Date/Time: 03/04/23 1102 Dictated Date/time: 03/04/23 1101 CC: Normal [facility] CBC W Auto Differential pane l (Bld)on 02-25-2023 Basophils (Bld) [#/Vol] 10*3/uL Normal <0.11 [facility] Comment on above: Order Comment: Speci men Type: BLOOD SPECIMENOrdering Facility: [facility] Address: [address] [address] Performed By: #### 5 7021-8 ####[facility] LABORATORYCLIA [id number] [place] [address] [place] Basophils/100 WBC (Bld) 0.1 % Normal [facility] Comment on above: Order Comment: Speci men Type: BLOOD SPECIMENOrdering Facility: [facility] Address: [address] [place] [address] Performed By: #### 5 7021-8 ####[facility] LABORATORYCLIA [id number] [address] [place] Differential cell count method Nom (Bld) Auto Normal [facility] Comment on above: Order Comment: Speci men Type: BLOOD SPECIMENOrdering Facility: [facility] Address: [address] [address] Performed By: #### 5 7021-8 ####[facility] LABORATORYCLIA [id number] [place] [address] [place] Eosinophils (Bld) [#/Vol] 10*3/uL Normal <0.46 [facility] Comment on above: Order Comment: Speci men Type: BLOOD SPECIMENOrdering Facility: [facility] Address: [address] [address] Performed By: #### 5 7021-8 ####[facility] LABORATORYCLIA [id number] [place] [address] [place] Eosinophils/100 WBC (Bld) 0.0 % Normal [facility] Comment on above: Order Comment: Speci men Type: BLOOD SPECIMENOrdering Facility: [facility] Address: [address] [address] Performed By: #### 5 7021-8 ####[facility] LABORATORYCLIA [id number] [address] [place] Erythrocyte distribution width (RBC) [Ratio] 13.4 % Normal 11.5-15.0 [facility] Comment on above: Order Comment: Speci men Type: BLOOD SPECIMENOrdering Facility: [facility] Address: [address] [place] [address] Performed By: #### 5 7021-8 ####[facility] LABORATORYCLIA [id number] [address] [place] Hematocrit (Bld) [Volume fraction] 36.9 % Low 39.0-51.0 [facility] Comment on above: Order Comment: Speci men Type: BLOOD SPECIMENOrdering Facility: [facility] Address: [address] [place] [address] Performed By: #### 5 7021-8 ####[facility] LABORATORYCLIA [id number] [address] [place] Hemoglobin (Bld) [Mass/Vol] 12.7 g/dL Low 13.0-17.0 [facility] Comment on above: Order Comment: Speci men Type: BLOOD SPECIMENOrdering Facility: [facility] Address: [address] [place] [address] Performed By: #### 5 7021-8 ####[facility] LABORATORYCLIA [id number] [address] [place] Immature granulocytes (Bld) [#/Vol] 0.17 10*3/uL High <0.10 [facility] Comment on above: Order Comment: Speci men Type: BLOOD SPECIMENOrdering Facility: [facility] Address: [address] [place] [address] Performed By: #### 5 7021-8 ####[facility] LABORATORYCLIA [id number] [address] [place] Immature granulocytes/100 WBC (Bld) 0.7 % Normal [facility] Comment on above: Order Comment: Speci men Type: BLOOD SPECIMENOrdering Facility: [facility] Address: [address] [address] Performed By: #### 5 7021-8 ####[facility] LABORATORYCLIA [id number] [address] [place] Lymphocytes (Bld) [#/Vol] 1.88 10*3/uL Normal 1.00-4.00 [facility] Comment on above: Order Comment: Speci men Type: BLOOD SPECIMENOrdering Facility: [facility] Address: [address] [address] Performed By: #### 5 7021-8 ####[facility] LABORATORYCLIA [id number] [address] OF [facility] Lymphocytes/100 WBC (Bld) 8.3 % Normal [facility] Comment on above: Order Comment: Speci men Type: BLOOD SPECIMENOrdering Facility: [facility] Address: [address] [address] Performed By: #### 5 7021-8 ####[facility] LABORATORYCLIA [id number] [address] [place] MCH (RBC) [Entitic mass] 30.9 pg Normal 26.0-34.0 [facility] Comment on above: Order Comment: Speci men Type: BLOOD SPECIMENOrdering Facility: [facility] Address: [address] [address] Performed By: #### 5 7021-8 ####[facility] LABORATORYCLIA [id number] [address] [place] MCHC (RBC) [Mass/Vol] 34.4 g/dL Normal 30.5-36.0 [facility] Comment on above: Order Comment: Speci men Type: BLOOD SPECIMENOrdering Facility: [facility] Address: [address] [address] Performed By: #### 5 7021-8 ####[facility] LABORATORYCLIA [id number] [place] MCV (RBC) [Entitic vol] 89.8 fL Normal 80.0-100.0 [facility] Comment on above: Order Comment: Speci men Type: BLOOD SPECIMENOrdering Facility: [facility] Address: [address] [address] Performed By: #### 5 7021-8 ####[facility] LABORATORYCLIA [id number] [place] [address] [place] Monocytes (Bld) [#/Vol] 0.54 10*3/uL Normal <0.87 [facility] Comment on above: Order Comment: Speci men Type: BLOOD SPECIMENOrdering Facility: [facility] Address: [address] [address] Performed By: #### 5 7021-8 ####[facility] LABORATORYCLIA [id number] [address] [place] Monocytes/100 WBC (Bld) 2.4 % Normal [facility] Comment on above: Order Comment: Speci men Type: BLOOD SPECIMENOrdering Facility: [facility] Address: [address] [address] Performed By: #### 5 7021-8 ####[facility] LABORATORYCLIA [id number] [place] [address] [place] Neutrophils (Bld) [#/Vol] 20.17 10*3/uL High 1.45-7.50 [facility] Comment on above: Order Comment: Speci men Type: BLOOD SPECIMENOrdering Facility: [facility] Address: [address] [address] Performed By: #### 5 7021-8 ####[facility] LABORATORYCLIA [id number] [address] [place] Neutrophils/100 WBC (Bld) 88.5 % Normal [facility] Comment on above: Order Comment: Speci men Type: BLOOD SPECIMENOrdering Facility: [facility] Address: [address] [address] Performed By: #### 5 7021-8 ####[facility] LABORATORYCLIA [id number] [place] [address] [place] Nucleated RBC (Bld) [#/Vol] 10*3/uL Normal <0.01 [facility] Comment on above: Order Comment: Speci men Type: BLOOD SPECIMENOrdering Facility: [facility] Address: [address] [address] Performed By: #### 5 7021-8 ####[facility] LABORATORYCLIA [id number] [place] [address] [place] Nucleated RBC/100 WBC (Bld) [Ratio] 0.0 /100 WBC Normal [facility] Comment on above: Order Comment: Speci men Type: BLOOD SPECIMENOrdering Facility: [facility] Address: [address] [place] [address] Performed By: #### 5 7021-8 ####[facility] LABORATORYCLIA [id number] [place] [address] [place] Platelet mean volume (Bld) [Entitic vol] 9.6 fL Normal 9.0-12.7 [facility] Comment on above: Order Comment: Speci men Type: BLOOD SPECIMENOrdering Facility: [facility] Address: [address] [place] [address] Performed By: #### 5 7021-8 ####[facility] LABORATORYCLIA [id number] [place] [address] [place] Platelets (Bld) [#/Vol] 332 10*3/uL Normal 150-400 [facility] Comment on above: Order Comment: Speci men Type: BLOOD SPECIMENOrdering Facility: [facility] Address: [address] [place] [address] Performed By: #### 5 7021-8 ####[facility] LABORATORYCLIA [id number] [place] [address] [place] RBC (Bld) [#/Vol] 4.11 10*6/uL Low 4.20-6.00 [facility] Comment on above: Order Comment: Sarah gentile Type: BLOOD SPECIMENOrdering Facility: [facility] Address: [address] [place] [address] Performed By: #### 5 7021-8 ####[facility] LABORATORYCLIA [id number] [place] [id number] [facility] [place] WBC (Bld) [#/Vol] 22.78 10*3/uL High 3.70-11.00 [facility] Comment on above: Order Comment: Sarah gentile Type: BLOOD SPECIMENOrdering Facility: [facility] Address: [address] [place] [address] Performed By: #### 5 7021-8 ####[facility] LABORATORYCLIA [id number] [place] [id number] [facility] CNDSon 02-25-2023 CNDS HNO ID: [id number] Author: Chaparrita Price APRN.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ELOPER Service: Hospital Medicine Author Type: Nurse Practitioner Type: Discharge Summary Filed: 02/25/2023 10:39 AM Note Text: ----- Attestation signed by Kassie Arechiga MD at 02/26/2023 3:22 PM agree ----- DISCHARGE SUMMARY PATIENT NAME: Reji Victor ADMISSION DATE: 02/23/2023 DISCHARGE DATE: 02/25/2023 ATTENDING PHYSICIAN: Kassie Arechiga MD Code Status: Full Code Highest Readmission Risk Score: 17 The 30 day readmissions risk score is derived from an internally validated risk model which evaluates patient level characteristics, utilization history, medication orders and lab results up until the day of discharge. Patients with a score of 40 or above are considered highest risk for readmission. Specific patient level drivers will be listed at the bottom of the summary. CONSULTING TEAMS DURING HOSPITALIZATION: Treatment Team: Attending Provider: Kassie Arechiga MD Consulting: Thor Valerio MD Consulting: Jess Ronquillo MD REASON FOR HOSPITALIZATION: Left periorbital cellulitis/abscess DIAGNOSIS: 1. Left-sided preseptal and infraorbital cellulitis-abscess 2. Transaminitis 3. Leukocytosis 4. nicotine use disorder OPERATIONS DURING HOSPITALIZATION: None PROCEDURES DURING HOSPITALIZATION: CT scan HOSPITAL COURSE: 47-year-old male with past medical history of Asthma, Hypertension, GERD. Presented to the emergency department complaining of left-sided facial pain. Work-up in the emergency department showed a left preseptal and infraorbital cellulitis for which the patient was started on ampicillin and vancomycin. Patient was being admitted under medicine service for further care. Patient stated he had a sore spot in his nose around 5 days prior to presentation which progressed to his infraorbital area and that prompted him to go to [place] and they attempted drainage however since his symptoms worsened he came here to [facility]. This has never happened before. Transaminitis improved, follow-up with GI outpatient, already established. Patient was admitted for ENT and ID consultation with IV antibiotics. ENT evaluated patient and suggested no surgical intervention as there is no drainable abscess noted, also suggested MRSA coverage for oral antibiotics upon discharge. Infectious disease evaluated patient reviewed their note, left periorbital cellulitis concern of community-acquired MRSA. Clinically improving. Okay to go home on oral antibiotics in form of doxycycline 100 mg twice a day for 10 more days. Prescription provided by ID. Dexamethasone DC'd, which is contributing to his leukocytosis and hyperglycemia. Patient evaluated lying in bed in room, states swelling and redness are much improved. Patient is stable for discharge home at this time with follow-up with PCP and 10-day course of doxycycline. Advised to contact infectious disease if symptoms worsen, come to the emergency department. Patient in agreement with discharge planning. Intake/Output Summary (Last 24 hours) at 02/25/2023 1034 Last data filed at 02/25/2023 0551 Gross per 24 hour Intake 270 ml Output 1450 ml Net -1180 ml Current Facility-Administered Medications Medication Dose Route Frequency Provider Last Rate Last Admin mupirocin 2 % ointment (BACTROBAN) TOPICAL TID Prashant Martinez MD Given at 02/25/23 0851 NaCl 0.9% iv flush bag 20 mL INTRAVENOUS PRN Huy Puga MD vancomycin dosing and monitoring per pharmacy OTHER As Directed Huy Puga MD hyoscyamine sublingual 0.125 mg tab(s) (LEVSIN SL) 0.125 mg SUBLINGUAL q 6 H PRN Huy Puga MD albuterol HFA 90 mcg/actuation 2 Puff (PROVENTIL HFA, VENTOLIN HFA) 2 Puff INHALATION q 4 H PRN Huy Puga MD famotidine 40 mg tab(s) (PEPCID) 40 mg ORAL DAILY Huy Puga MD 40 mg at 02/25/23 0851 magnesium oxide 400 mg tab(s) (MAG-OX) 400 mg ORAL DAILY Huy Puga MD 400 mg at 02/25/23 0851 meloxicam 15 mg tab(s) (MOBIC) 15 mg ORAL DAILY Huy Puga MD 15 mg at 02/25/[address] 40 mg tab(s) (PROTONIX) 40 mg ORAL DAILY (6 AM) Huy Puga MD 40 mg at 02/25/23 0547 traZODone 200 mg tab(s) (DESYREL) 200 mg ORAL AT BEDTIME Huy Puga MD 200 mg at 02/24/23 2220 enoxaparin 40 mg injection (LOVENOX) 40 mg SUBCUTANEOUS q 24 HR Huy Puga MD 40 mg at 02/24/23 1708 vancomycin 1.5 g in NaCl 0.9% 250 mL (VANCOCIN) 1.5 g INTRAVENOUS q 12 HR Becka Osuan [facility] Stopped at 02/25/23 0459 cyclobenzaprine 10 mg tab(s) (FLEXERIL) 10 mg ORAL TID PRN Huy Puga MD 10 mg at 02/25/23 0627 Recent Results (from the past 36 hour(s)) LIPID PANEL BASIC Collection Time: 02/24/23 6:11 AM Result Value Ref Range Cholesterol, Total 163 0 - 199 mg/dL Triglyceride 65 30 - 149 m (more content not included)... Normal [facility] Comprehensive metabolic 2000 panelon 02-25-2023 Albumin [Mass/Vol] 3.1 g/dL Low 3.2-5.0 [facility] Comment on above: Order Comment: Speci men Type: BLOOD SPECIMENOrdering Facility: [facility] Address: [address] [place] [address] Performed By: #### 2 4323-8 ####[facility] LABORATORYCLIA [id number] [place] [address] [place] ALP [Catalytic activity/Vol] 145 U/L High 45-117 [facility] Comment on above: Order Comment: Speci men Type: BLOOD SPECIMENOrdering Facility: [facility] Address: [address] [place] [address] Performed By: #### 2 4323-8 ####[facility] LABORATORYCLIA [id number] [place] [address] [place] ALT [Catalytic activity/Vol] 50 U/L Normal 13-61 [facility] Comment on above: Order Comment: Speci men Type: BLOOD SPECIMENOrdering Facility: [facility] Address: [address] [place] [address] Result Comment: Resu lts may be falsely depressed after the administration of Sulfasalazine and/or Sulfapyridine. Performed By: #### 2 4323-8 ####[facility] LABORATORYCLIA [id number] [place] [address] [place] Anion gap [Moles/Vol] 6 mmol/L Normal 5-16 [facility] Comment on above: Order Comment: Speci men Type: BLOOD SPECIMENOrdering Facility: [facility] Address: [address] [place] [address] Performed By: #### 2 4323-8 ####[facility] LABORATORYCLIA [id number] [place] [address] [place] AST [Catalytic activity/Vol] 44 U/L High 8-34 [facility] Comment on above: Order Comment: Speci men Type: BLOOD SPECIMENOrdering Facility: [facility] Address: [address] [place] [address] Result Comment: Resu lts may be falsely depressed after the administration of Sulfasalazine and/or Sulfapyridine. Performed By: #### 2 4323-8 ####[facility] LABORATORYCLIA [id number] [place] [address] [place] Bilirubin [Mass/Vol] 0.2 mg/dL Normal 0.2-1.0 [facility] Comment on above: Order Comment: Speci men Type: BLOOD SPECIMENOrdering Facility: [facility] Address: [address] [place] [address] Performed By: #### 2 4323-8 ####[facility] LABORATORYCLIA [id number] [place] [address] [place] Calcium [Mass/Vol] 9.0 mg/dL Normal 8.5-10.5 [facility] Comment on above: Order Comment: Speci men Type: BLOOD SPECIMENOrdering Facility: [facility] Address: [address] [place] [address] Performed By: #### 2 4323-8 ####[facility] LABORATORYCLIA [id number] [place] [address] [place] Chloride [Moles/Vol] 111 mmol/L High 98-107 [facility] Comment on above: Order Comment: Speci men Type: BLOOD SPECIMENOrdering Facility: [facility] Address: [address] [place] [address] Performed By: #### 2 4323-8 ####[facility] LABORATORYCLIA [id number] [place] [address] [place] CO2 [Moles/Vol] 22 mmol/L Normal 21-32 [facility] Comment on above: Order Comment: Speci men Type: BLOOD SPECIMENOrdering Facility: [facility] Address: [address] [place] [address] Performed By: #### 2 4323-8 ####[facility] LABORATORYCLIA [id number] [place] [address] [place] Creatinine [Mass/Vol] 0.89 mg/dL Normal 0.50-1.40 [facility] Comment on above: Order Comment: Sarah gentile Type: BLOOD SPECIMENOrdering Facility: [facility] Address: [address] [place] [address] Result Comment: Natalia ents receiving either N-Acetylcysteine (NAC) or Metamizole prior to venipuncture, may have falsely depressed results. Performed By: #### 2 4323-8 ####[facility] LABORATORYCLIA [id number] [address] Creatinine and Glomerular filtration rate.predicted panel (S/P/Bld) 105 mL/min/1.73m??? Normal >=60 [facility] Comment on above: Order Comment: Sarah gentile Type: BLOOD SPECIMENOrdering Facility: [facility] Address: [address] [place] [address] Result Comment: Annie mated Glomerular Filtration Rate (eGFR) is calculated using the 2020 CKD-EPI creatinine equation. This equation utilizes serum creatinine, sex, and age as parameters. The creatinine assay has traceable calibration to isotope dilution-mass spectrometry. Refer to KDIGO guidelines for clinical interpretation. In patients with unstable renal function, e.g. those with acute kidney injury, the eGFR may not accurately reflect actual GFR. Performed By: #### 2 4323-8 ####[facility] LABORATORYCLIA [id number] [place] [address] [place] Glucose [Mass/Vol] 142 mg/dL High 70-100 [facility] Comment on above: Order Comment: Sarah gentile Type: BLOOD SPECIMENOrdering Facility: [facility] Address: [address] [place] [address] Result Comment: The [place] Diabetes Association (ADA) provides guidance for cutoff values for fasting glucose and random glucose. The ADA defines fasting as no caloric intake for at least 8 hours. Fasting plasma glucose results between 100 to 125 mg/dL indicate increased risk for diabetes (prediabetes). Fasting plasma glucose results greater than or equal to 126 mg/dL meet the criteria for diagnosis of diabetes. In the absence of unequivocal hyperglycemia, results should be confirmed by repeat testing. In a patient with classic symptoms of hyperglycemia or hyperglycemic crisis, random plasma glucose results greater than or equal to 200 mg/dL meet the criteria for diagnosis of diabetes. Reference: Standards of Medical Care in Diabetes 2016, [place] [employer]. Diabetes Care. 2016.39(Suppl 1). Results may be falsely elevated after the administration of Sulfapyridine. Results may be falsely depressed after the administration of Sulfasalazine. Performed By: #### 2 4323-8 ####[facility] LABORATORYCLIA [id number] [place] [address] [place] Potassium [Moles/Vol] 4.5 mmol/L Normal 3.5-5.1 [facility] Comment on above: Order Comment: Sarah gentile Type: BLOOD SPECIMENOrdering Facility: [facility] Address: [address] [place] [address] Performed By: #### 2 4323-8 ####[facility] LABORATORYCLIA [id number] [place] [address] [place] Protein [Mass/Vol] 6.3 g/dL Normal 6.0-8.5 [facility] Comment on above: Order Comment: Sarah gentile Type: BLOOD SPECIMENOrdering Facility: [facility] Address: [address] [place] [address] Performed By: #### 2 4323-8 ####[facility] LABORATORYCLIA [id number] [place] [address] [place] Sodium [Moles/Vol] 139 mmol/L Normal 136-145 [facility] Comment on above: Order Comment: Sarah gentile Type: BLOOD SPECIMENOrdering Facility: [facility] Address: [address] [place] [address] Performed By: #### 2 4323-8 ####[facility] LABORATORYCLIA [id number] [place] [address] [place] Urea nitrogen [Mass/Vol] 18 mg/dL Normal 7-26 [facility] Comment on above: Order Comment: Speci men Type: BLOOD SPECIMENOrdering Facility: [facility] Address: [address] [place] [address] Performed By: #### 2 4323-8 ####[facility] LABORATORYCLIA [id number] [address] [place] CBC panel Auto (Bld)on 02-24 Erythrocyte distribution width (RBC) [Ratio] 13.1 % Normal 11.5-15.0 [facility] Comment on above: Order Comment: Speci men Type: BLOOD SPECIMENOrdering Facility: [facility] Address: [address] [place] [address] Performed By: #### 5 8410-2 ####[facility] LABORATORYCLIA [id number] [address] [place] Hematocrit (Bld) [Volume fraction] 38.7 % Low 39.0-51.0 [facility] Comment on above: Order Comment: Speci men Type: BLOOD SPECIMENOrdering Facility: [facility] Address: [address] [place] [address] Performed By: #### 5 8410-2 ####[facility] LABORATORYCLIA [id number] [address] [place] Hemoglobin (Bld) [Mass/Vol] 13.2 g/dL Normal 13.0-17.0 [facility] Comment on above: Order Comment: Speci men Type: BLOOD SPECIMENOrdering Facility: [facility] Address: [address] [place] [address] Performed By: #### 5 8410-2 ####[facility] LABORATORYCLIA [id number] [address] [place] MCH (RBC) [Entitic mass] 30.6 pg Normal 26.0-34.0 [facility] Comment on above: Order Comment: Speci men Type: BLOOD SPECIMENOrdering Facility: [facility] Address: [address] [place] [address] Performed By: #### 5 8410-2 ####[facility] LABORATORYCLIA [id number] [place] [address] [place] MCHC (RBC) [Mass/Vol] 34.1 g/dL Normal 30.5-36.0 [facility] Comment on above: Order Comment: Speci men Type: BLOOD SPECIMENOrdering Facility: [facility] Address: [address] [place] [address] Performed By: #### 5 8410-2 ####[facility] LABORATORYCLIA [id number] [place] [address] [place] MCV (RBC) [Entitic vol] 89.6 fL Normal 80.0-100.0 [facility] Comment on above: Order Comment: Speci men Type: BLOOD SPECIMENOrdering Facility: [facility] Address: [address] [place] [address] Performed By: #### 5 8410-2 ####[facility] LABORATORYCLIA [id number] [place] [address] [place] Nucleated RBC (Bld) [#/Vol] 10*3/uL Normal <0.01 [facility] Comment on above: Order Comment: Speci men Type: BLOOD SPECIMENOrdering Facility: [facility] Address: [address] [place] [address] Performed By: #### 5 8410-2 ####[facility] LABORATORYCLIA [id number] [place] [address] [place] Platelet mean volume (Bld) [Entitic vol] 9.5 fL Normal 9.0-12.7 [facility] Comment on above: Order Comment: Speci men Type: BLOOD SPECIMENOrdering Facility: [facility] Address: [address] [place] [address] Performed By: #### 5 8410-2 ####[facility] LABORATORYCLIA [id number] [place] [address] [place] Platelets (Bld) [#/Vol] 294 10*3/uL Normal 150-400 [facility] Comment on above: Order Comment: Speci men Type: BLOOD SPECIMENOrdering Facility: [facility] Address: [address] Performed By: #### 5 8410-2 ####[facility] LABORATORYCLIA [id number] [address] OF [facility] RBC (Bld) [#/Vol] 4.32 10*6/uL Normal 4.20-6.00 [facility] Comment on above: Order Comment: Speci men Type: BLOOD SPECIMENOrdering Facility: [facility] Address: [address] [place], [place] [address] Performed By: #### 5 8410-2 ####[facility] LABORATORYCLIA [id number] [address] WBC (Bld) [#/Vol] 12.90 10*3/uL High 3.70-11.00 [facility] Comment on above: Order Comment: Speci men Type: BLOOD SPECIMENOrdering Facility: [facility] Address: [address] [place], [place] [address] Performed By: #### 5 8410-2 ####[facility] LABORATORYCLIA [id number] [address] CONSULTon 02-24-2023 CONSULT HNO ID: [id number] Author: Jess Ronquillo MD Service: Infectious Disease Author Type: Physician Type: Consults Filed: 02/24/2023 9:45 AM Note Text: INFECTIOUS DISEASE INITIAL CONSULT NOTE SERVICE DATE: 02/24/2023 SERVICE TIME: 9:41 AM REASON FOR CONSULT: Left periorbital cellulitis/soft tissue infection Subjective Patient is seen at the request of Donavon Caro MD for my opinion regarding left periorbital cellulitis/soft tissue infection. My final recommendations will be communicated back to the requesting physician by way of copy of this note or shared electronic medical record. HPI: Reji Ponce Valente who is a 47 year old male past medical history of GERD, tobacco abuse, spinal stenosis who noted late last week swelling and erythema around his left eye. Patient was then seen at [facility] emergency department on Thursday morning when attempted IANDD of the left periorbital area which was unsuccessful per the patient. Patient was sent home on Bactrim. No fevers or chills. Despite Bactrim the erythema progressed as well as the swelling. Patient does have a remote history of boils mainly in his genitalia area. Patient was seen by ENT, currently on vancomycin as well as dexamethasone at this time. Patient denies any headache. No cardiopulmonary distress. PAST MEDICAL HISTORY Diagnosis Date Asthma Colon polyps GI in [place] COPD (chronic obstructive pulmonary disease) (HCC) FHx: colon cancer Mother GERD (gastroesophageal reflux disease) Hiatal hernia HTN (hypertension) Incisional hernia 04/14/2018 Added automatically from request for surgery [id number] Kidney stone Lower abdominal pain 06/11/2017 Microhematuria 06/11/2017 Mitral valve prolapse Multiple thyroid nodules Obesity (BMI 30.0-34.9) Osteoarthritis right knee PTSD (post-traumatic stress disorder) Spinal stenosis Tobacco use Quit 11/2017 Umbilical hernia 04/14/2018 Added automatically from request for surgery [id number] PAST SURGICAL HISTORY Procedure Laterality Date ARTHROSCOPY KNEE DIAGNOSTIC W/WO SYNOVIAL BX SPX Right 2000 Arthroscopy, knee CAPSULE ENDOSCOPY ESOPHAGEAL 11/25/2019 CHOLECYSTECTOMY 2015 COLONOSCOPY 06/2017 Normal COLONOSCOPY 2017 polyps COLONOSCOPY 08/25/2018 normal, repeat in [address] Quintanilla COLONOSCOPY FLX DX W/COLLJ SPEC WHEN PFRMD 08/15/2019 normal, repeat in 5 years due to family history CYSTOSCOPY,+URETEROSCOPY EGD 2016 Small hiatal hernia EGD 01/2018 EGD 08/25/2018 gastritis, GERD, hiatal hernia EGD 08/15/2019 Duodenitis, gastritis. Neg. - H. Pylori. EYE SURGERY HX GI TRC IMG INTRALUMINAL ESOPHAGUS-ILEUM W/IANDR 11/25/2019 Delayed gastric transit. Rapid small bowel transit. Otherwise normal LEG SURGERY HX Right 1999 ORIF Tib-fib PAST SURGICAL HISTORY OF Right 2000 Hardware removal right leg PAST SURGICAL HISTORY OF 12/2019 Back injections REPAIR FIRST ABDOMINAL WALL HERNIA 04/28/2018 Hernia repair, incisional SIGMOIDOSCOPY 11/03/2019 poor anal sphincter tone Social History Tobacco Use Smoking status: Every Day Packs/day: 1.50 Years: 20.00 Additional pack years: 0.00 Total pack years: 30.00 Types: Cigarettes Smokeless tobacco: Current Types: Chew Tobacco comments: Quit smoking in 07/2017, started again end of 08/2017, quit again beginning of 11/2017 Vaping Use Vaping Use: Never used Substance Use Topics Alcohol use: Yes Comment: rarely Drug use: Yes Comment: CBD gummies FAMILY HISTORY Problem Relation Age of Onset Colon Cancer Mother early 50s Diabetes Mother Heart Mother Hypertension Mother Diabetes Father Heart Father [place] at age 63 Hypertension Father Colon Cancer Father No Known Problems Sister Immunization History Administered Date(s) Administered influenza (IIV4) vaccine, age 6 mo - 64 yr, quadrivalent (AFLURIA, FLULAVAL, FLUZONE) 04/07/2018 06/16/2019 influenza (IIV4) vaccine, age 6 mo - 64 yr, quadrivalent, PF (AFLURIA, FLUARIX, FLULAVAL, FLUZONE) 03/26/2015 04/27/2017 pneumococcal (PCV20) vaccine, 20 valent (PREVNAR 20) 01/30/2023 pneumococcal (PPV23) vaccine, 23 valent (PNEUMOVAX 23) 09/17/2017 tetanus diphtheria pertussis (Tdap) vaccine, age 7+ yr (ADACEL, BOOSTRIX) 01/04/2018 Current Facility-Administered Medications Medication Dose Route Frequency NaCl 0.9% iv flush bag 20 mL INTRAVENOUS PRN vancomycin dosing and monitoring per pharmacy OTHER As Directed hyoscyamine sublingual 0.125 mg tab(s) (LEVSIN SL) 0.125 mg SUBLINGUAL q 6 H PRN albuterol HFA 90 mcg/actuation 2 Puff (PROVENTIL HFA, VENTOLIN HFA) 2 Puff INHALATION q 4 H PRN famotidine 40 mg tab(s) (PEPCID) 40 mg ORAL DAILY magnesium oxide 400 mg tab(s) (MAG-OX) 400 mg ORAL DAILY meloxicam 15 mg tab(s) (MOBIC) 15 mg ORAL DAILY pantoprazole DR 40 mg tab(s) (PROTONIX) 40 mg ORAL DAILY (6 AM) traZODone 200 mg tab(s) (DESYREL) 200 mg ORAL AT (more content not included)... [facility] CONSULT PROGon 02-24-2023 CONSULT PROG HNO ID: [id number] Author: Prashant Martinez MD Service: Otolaryngology Author Type: Physician Type: Consult Progress Note Filed: 02/24/2023 3:34 PM Note Text: ENT SERVICE CONSULT PROGRESS NOTE SERVICE DATE: 02/24/2023 SERVICE TIME: 3:31 PM Subjective INTERVAL HPI: Patient is got much improvement and left lower eyelid swelling. Current Facility-Administered Medications Medication Dose Route Frequency NaCl 0.9% iv flush bag 20 mL INTRAVENOUS PRN vancomycin dosing and monitoring per pharmacy OTHER As Directed hyoscyamine sublingual 0.125 mg tab(s) (LEVSIN SL) 0.125 mg SUBLINGUAL q 6 H PRN albuterol HFA 90 mcg/actuation 2 Puff (PROVENTIL HFA, VENTOLIN HFA) 2 Puff INHALATION q 4 H PRN famotidine 40 mg tab(s) (PEPCID) 40 mg ORAL DAILY magnesium oxide 400 mg tab(s) (MAG-OX) 400 mg ORAL DAILY meloxicam 15 mg tab(s) (MOBIC) 15 mg ORAL DAILY pantoprazole DR 40 mg tab(s) (PROTONIX) 40 mg ORAL DAILY (6 AM) traZODone 200 mg tab(s) (DESYREL) 200 mg ORAL AT BEDTIME enoxaparin 40 mg injection (LOVENOX) 40 mg SUBCUTANEOUS q 24 HR vancomycin 1.5 g in NaCl 0.9% 250 mL (VANCOCIN) 1.5 g INTRAVENOUS q 12 HR cyclobenzaprine 10 mg tab(s) (FLEXERIL) 10 mg ORAL TID PRN dexAMETHasone sodium phosphate 8 mg injection (DECADRON) 8 mg INTRAVENOUS q 8 H Objective PHYSICAL EXAM: Physical Exam Performed: Small swelling over the left lateral lower eyelid without significant fluctuance. His previous IANDD site was unroofed and a small bit of purulent drainage (less than 1 mL) was expressed. BP 103/55 Pulse 88 Temp (Src) 97.9 (Oral) Resp 18 Ht 5' 10 (1.78m) Wt 220 lb (99.8kg) SpO2 95% BMI 31.57 kg/(m2). O2 Therapy: Room Air DATA: Diagnostic tests reviewed for today's visit: White blood cell count elevated at 12 from 8 yesterday Impression/Recommendation s Principal Problem: Abscess (POA: Yes) Assessment AND Plan: Agree with infectious disease recommendations. This infection is much improved. There is no significant sequestered purulent material. I do not foresee any further indication for surgical intervention. Recommend complete 10-day course of clindamycin or Bactrim DS for MRSA coverage. ENT will sign off. Resolved Problems: * No resolved hospital problems. * SIGNATURE: Prashant Martinez MD PATIENT NAME: Reji Victor DATE: February 24, 2023 TIME: 3:31 PM PAGER: [place] [facility] Normal [facility] Comprehensive metabolic 2000 panelon 02-24-2023 Albumin [Mass/Vol] 3.3 g/dL Normal 3.2-5.0 [facility] Comment on above: Order Comment: Speci men Type: BLOOD SPECIMENOrdering Facility: [facility] Address: [address] [place] [address] Performed By: #### 2 4323-8, 88126-6, 96530-7 ####[facility] LABORATORYCLIA [id number] [place] [address] [place] ALP [Catalytic activity/Vol] 185 U/L High 45-117 [facility] Comment on above: Order Comment: Speci men Type: BLOOD SPECIMENOrdering Facility: [facility] Address: [address] [place] [address] Performed By: #### 2 4323-8, 54091-8, 77785-6 ####[facility] LABORATORYCLIA [id number] [address] [place] ALT [Catalytic activity/Vol] 78 U/L High 13-61 [facility] Comment on above: Order Comment: Speci men Type: BLOOD SPECIMENOrdering Facility: [facility] Address: [address] [place] [address] Result Comment: Resu lts may be falsely depressed after the administration of Sulfasalazine and/or Sulfapyridine. Performed By: #### 2 4323-8, 86351-7, 89879-2 ####[facility] LABORATORYCLIA [id number] [place] [address] [place] Anion gap [Moles/Vol] 10 mmol/L Normal 5-16 [facility] Comment on above: Order Comment: Speci men Type: BLOOD SPECIMENOrdering Facility: [facility] Address: [place] [address] Performed By: #### 2 4323-8, 49807-0, ####[facility] LABORATORYCLIA [id number] [place] [address] [place] AST [Catalytic activity/Vol] 131 U/L High 8-34 [facility] Comment on above: Order Comment: Speci men Type: BLOOD SPECIMENOrdering Facility: [facility] Address: [place] [address] Result Comment: Resu lts may be falsely depressed after the administration of Sulfasalazine and/or Sulfapyridine. Performed By: #### 2 4323-8, 17453-6, ####[facility] LABORATORYCLIA [id number] [place] [address] [place] Bilirubin [Mass/Vol] 0.3 mg/dL Normal 0.2-1.0 [facility] Comment on above: Order Comment: Speci men Type: BLOOD SPECIMENOrdering Facility: [facility] Address: [place] [address] Performed By: #### 2 4323-8, 48775-0, ####[facility] LABORATORYCLIA [id number] [place] [address] [place] Calcium [Mass/Vol] 9.0 mg/dL Normal 8.5-10.5 [facility] Comment on above: Order Comment: Speci men Type: BLOOD SPECIMENOrdering Facility: [facility] Address: [place] [address] Performed By: #### 2 4323-8, 45194-3, ####[facility] LABORATORYCLIA [id number] [place] [id number] [place] Chloride [Moles/Vol] 108 mmol/L High 98-107 [facility] Comment on above: Order Comment: Speci men Type: BLOOD SPECIMENOrdering Facility: [facility] Address: [address] Performed By: #### 2 4323-8, 76413-6, 81103-5 ####[facility] LABORATORYCLIA [id number] [place] [address] [place] CO2 [Moles/Vol] 20 mmol/L Low 21-32 [facility] Comment on above: Order Comment: Speci men Type: BLOOD SPECIMENOrdering Facility: [facility] Address: [address] Performed By: #### 2 4323-8, 52578-7, 44986-4 ####[facility] LABORATORYCLIA [id number] [address] [place] Creatinine [Mass/Vol] 0.92 mg/dL Normal 0.50-1.40 [facility] Comment on above: Order Comment: Speci men Type: BLOOD SPECIMENOrdering Facility: [facility] Address: [address] [place] [address] Result Comment: Natalia ents receiving either N-Acetylcysteine (NAC) or Metamizole prior to venipuncture, may have falsely depressed results. Performed By: #### 2 4323-8, 13622-8, 98904-1 ####[facility] LABORATORYCLIA [id number] [address] Creatinine and Glomerular filtration rate.predicted panel (S/P/Bld) 102 mL/min/1.73m??? Normal >=60 [facility] Comment on above: Order Comment: Speci men Type: BLOOD SPECIMENOrdering Facility: [facility] Address: [address] [place] [address] Result Comment: Annie mated Glomerular Filtration Rate (eGFR) is calculated using the 2020 CKD-EPI creatinine equation. This equation utilizes serum creatinine, sex, and age as parameters. The creatinine assay has traceable calibration to isotope dilution-mass spectrometry. Refer to KDIGO guidelines for clinical interpretation. In patients with unstable renal function, e.g. those with acute kidney injury, the eGFR may not accurately reflect actual GFR. Performed By: #### 2 4323-8, 72445-7, ####[facility] LABORATORYCLIA [id number] [place] [address] [place] Glucose [Mass/Vol] 128 mg/dL High 70-100 [facility] Comment on above: Order Comment: Speci seferino Type: BLOOD SPECIMENOrdering Facility: [facility] Address: [place] [address] Result Comment: The [place] Diabetes Association (ADA) provides guidance for cutoff values for fasting glucose and random glucose. The ADA defines fasting as no caloric intake for at least 8 hours. Fasting plasma glucose results between 100 to 125 mg/dL indicate increased risk for diabetes (prediabetes). Fasting plasma glucose results greater than or equal to 126 mg/dL meet the criteria for diagnosis of diabetes. In the absence of unequivocal hyperglycemia, results should be confirmed by repeat testing. In a patient with classic symptoms of hyperglycemia or hyperglycemic crisis, random plasma glucose results greater than or equal to 200 mg/dL meet the criteria for diagnosis of diabetes. Reference: Standards of Medical Care in Diabetes 2016, [place] [employer]. Diabetes Care. 2016.39(Suppl 1). Results may be falsely elevated after the administration of Sulfapyridine. Results may be falsely depressed after the administration of Sulfasalazine. Performed By: #### 2 4323-8, 59438-7, ####[facility] LABORATORYCLIA [id number] [place] [address] [place] Potassium [Moles/Vol] 4.9 mmol/L Normal 3.5-5.1 [facility] Comment on above: Order Comment: Nani men Type: BLOOD SPECIMENOrdering Facility: [facility] Address: [address] [place] [address] Performed By: #### 2 4323-8, 16482-2, ####[facility] LABORATORYCLIA [id number] [place] [address] [place] Protein [Mass/Vol] 7.0 g/dL Normal 6.0-8.5 [facility] Comment on above: Order Comment: Speci men Type: BLOOD SPECIMENOrdering Facility: [facility] Address: [address] [place] [address] Performed By: #### 2 4323-8, 62546-4, ####[facility] LABORATORYCLIA [id number] [place] [address] [place] Sodium [Moles/Vol] 138 mmol/L Normal 136-145 [facility] Comment on above: Order Comment: Speci men Type: BLOOD SPECIMENOrdering Facility: [facility] Address: [address] [place] [address] Performed By: #### 2 4323-8, 14048-6, ####[facility] LABORATORYCLIA [id number] [place] [address] [place] Urea nitrogen [Mass/Vol] 11 mg/dL Normal 7-26 [facility] Comment on above: Order Comment: Speci men Type: BLOOD SPECIMENOrdering Facility: [facility] Address: [address] [place] [address] Performed By: #### 2 4323-8, 07682-6, ####[facility] LABORATORYCLIA [id number] [place] [address] [place] HCV Ab Ser Qlon 02-24-2023 HCV Ab Ql (S) Non-Reactive Normal Nonreactive [facility] Comment on above: Order Comment: Speci men Type: BLOOD SPECIMENOrdering Facility: [facility] Address: [address] [place] [address] Result Comment: Scre ening test negative Nonreactive HCV Antibody Screen is consistent with no HCV infection, unless recent infection is suspected or other evidence exists to indicate HCV infection. Results were obtained with the [employer] Lic[employer] IM IgM assay. Values obtained with different manufactures' assay methods may not be used interchangeably. Performed By: #### 2 4323-8, 70298-3, 97317-4 ####[facility] LABORATORYCLIA [id number] [place] [address] [place] Lactate (Bld) [Moles/Vol]on 02-24-2023 Lactate [Moles/Vol] 0.8 mmol/L Normal 0.4-2.0 [facility] Comment on above: Order Comment: Speci men Type: BLOOD SPECIMENOrdering Facility: [facility] Address: [address] [place] [address] Performed By: #### 3 2693-4 ####[facility] LABORATORYCLIA [id number] [address] OF [facility] Lipid 1996 panelon Cholesterol [Mass/Vol] 163 mg/dL Normal 0-199 [facility] Comment on above: Order Comment: Speci men Type: BLOOD SPECIMENOrdering Facility: [facility] Address: [address] [place] [address] Result Comment: <200 mg/dL, Desirable 200-239 mg/dL, Borderline high >239 mg/dL, High Performed By: #### 2 4323-8, 84522-1, 48170-2 ####[facility] LABORATORYCLIA [id number] [address] Cholesterol in HDL [Mass/Vol] 43 mg/dL Normal >40 [facility] Comment on above: Order Comment: Speci men Type: BLOOD SPECIMENOrdering Facility: [facility] Address: [address] [place] [address] Result Comment: 40-5 9 mg/dL, Acceptable >59 mg/dL, High: Negative risk factor for coronary heart disease <40 mg/dL, Low: Positive risk factor for coronary heart disease Performed By: #### 2 4323-8, 64144-6, 72448-2 ####[facility] LABORATORYCLIA [id number] [address] OF [facility] Cholesterol in LDL [Mass/Vol] 107 mg/dL Normal 0-129 [facility] Comment on above: Order Comment: Speci men Type: BLOOD SPECIMENOrdering Facility: [facility] Address: [address] [place] [address] Result Comment: <100 mg/dL, Optimal 100-129 mg/dL, Near optimal/above optimal 130-159 mg/dL, Borderline high 160-189 mg/dL, High >189 mg/dL, Very high Secondary prevention optimal LDL Cholesterol levels are recommended to be < 70 mg/dL Performed By: #### 2 4323-8, 63530-2, 11805-7 ####[facility] LABORATORYCLIA [id number] [place] [address] [place] Cholesterol in LDL/Cholesterol in HDL [Mass ratio] 2.49 {ratio} Normal <2.54 [facility] Comment on above: Order Comment: Speci men Type: BLOOD SPECIMENOrdering Facility: [facility] Address: [address] [place] [address] Result Comment: Babak velásquez: 1. National Cholesterol Education Program ATP III Guideline At-A-Glance Quick Desk Reference: National Heart, Lung, and Blood [place]. National Institutes of Health. 2001: NIH Publication No. 01-3305. 2. An International Atherosclerosis Society position paper: global recommendations for the management of dyslipidemia: executive summary, Atherosclerosis. 2014: 232(2):410-413. Performed By: #### 2 4323-8, 65082-2, ####[facility] LABORATORYCLIA [id number] [address] [place] Cholesterol in VLDL [Mass/Vol] 13 mg/dL Normal <30 [facility] Comment on above: Order Comment: Speci men Type: BLOOD SPECIMENOrdering Facility: [facility] Address: [address] [place] [address] Performed By: #### 2 4323-8, 84463-1, ####[facility] LABORATORYCLIA [id number] [place] [id number] [place] Cholesterol non HDL [Mass/Vol] 120 mg/dL Normal <130 [facility] Comment on above: Order Comment: Speci men Type: BLOOD SPECIMENOrdering Facility: [facility] Address: [address] [place] [address] Result Comment: <130 mg/dL, Optimal 130-159 mg/dL, Near optimal/above optimal 160-189 mg/dL, Borderline high 190-219 mg/dL, High >219 mg/dL, Very high Secondary prevention optimal non HDL Cholesterol levels are recommended to be <100 mg/dL Performed By: #### 2 4323-8, 43477-8, ####[facility] LABORATORYCLIA [id number] [address] Cholesterol.total/Cho lesterol in HDL [Mass ratio] 3.79 {ratio} Normal <5.10 [facility] Comment on above: Order Comment: Speci men Type: BLOOD SPECIMENOrdering Facility: [facility] Address: [address] [place] [address] Performed By: #### 2 4323-8, 58108-1, ####[facility] LABORATORYCLIA [id number] [address] FASTING TIME No Normal [facility] Comment on above: Order Comment: Speci men Type: BLOOD SPECIMENOrdering Facility: [facility] Address: [address] [place] [address] Performed By: #### 2 4323-8, 22505-9, ####[facility] LABORATORYCLIA [id number] [address] Triglyceride [Mass/Vol] 65 mg/dL Normal 30-149 [facility] Comment on above: Order Comment: Nani seferino Type: BLOOD SPECIMENOrdering Facility: [facility] Address: [address] [place] [address] Result Comment: <150 mg/dL, Normal 150-199 mg/dL, Borderline high 200-499 mg/dL, High >499 mg/dL, Very high Patients receiving either N-Acetylcysteine (NAC) or Metamizole prior to venipuncture, may have falsely depressed results. Performed By: #### 2 4323-8, 37772-6, ####[facility] LABORATORYCLIA [id number] [address] OF [facility] STAPH AUREUS PCRon 3 S. aureus and MRSA panel JUANITA+probe (Nose) Abnormal Negative [facility] Comment on above: Order Comment: Speci men Type: SWAB OF INTERNAL NOSEOrdering Facility: [facility] Address: [place] [address] Result Comment: Posi tive for Staphylococcus aureus by PCR. Positive for MRSA by PCR Performed By: #### S APCR ####[facility] LABORATORYCLIA [id number] [place] [address] [place] US ABD RIGHT UPPER QUADRANTo n 02-24-2023 US ABD RIGHT UPPER QUADRANT * * *Final Report* * * DATE OF EXAM: Feb 24 2023 11:53AM RHU 1032 - US ABD RIGHT UPPER QUADRANT / PROCEDURE REASON: Abn liver function tests (LFTs) * * * * Physician Interpretation * * * * EXAMINATION: RIGHT UPPER QUADRANT ULTRASOUND CLINICAL HISTORY: Abnormal liver function tests TECHNIQUE: Sonography of the right upper quadrant was performed. Images were obtained and stored in a permanent archive. MQ: [id number] COMPARISON: CT scan 11/14/2020 RESULT: Pancreas: Normal sonographic appearance. Portions obscured: tail Liver: 13.7 cm in length Echotexture: Normal, homogeneous. Echogenicity: Increased Surface contour: Smooth Lesions: None. Biliary: No intrahepatic biliary duct dilation. CBD: 0.9 cm at the hilum. Gallbladder: Surgically absent Right Kidney: No hydronephrosis. Incidental cyst measuring about 1.7 cm Ascites: None. IMPRESSION: Normal size liver with diffuse increased echogenicity compatible with steatosis or other chronic diffuse hepatocellular process. Status post cholecystectomy. The common bile duct is dilated to about 9 mm, which is compatible with postcholecystectomy ectasia. Home [employer] Consultant Supervisor: PSCB Transcribe Date/Time: Feb 24 2023 12:34P Dictated by : LLOYD HARRISON MD This examination was interpreted and the report reviewed and electronically signed by: LLOYD HARRISON MD on Feb 24 2023 12:36PM EST [id number] Normal [facility] Bacteria Bld Culton 02-24-20 23 Bacteria identified Cx Nom (Bld) CULTURE, BLOOD: No growth 5 days Normal [facility] Comment on above: Performed By: #### 6 00-7 ####[facility] LABORATORYCLIA [id number] [place] [address] [place] Basic metabolic 2000 panelon 02-23-2023 Anion gap [Moles/Vol] 5 mmol/L Normal 5-16 [facility] Comment on above: Order Comment: Speci men Type: BLOOD SPECIMEN [facility] Address: [address] [place] [address] Performed By: #### 2 4321-2, 41503-4 #### [facility] CLIA [id number] [address] [place] [address] [place] Calcium [Mass/Vol] 9.6 mg/dL Normal 8.5-10.5 [facility] Comment on above: Order Comment: Speci men Type: BLOOD SPECIMEN [facility] Address: [address] [place] [address] Performed By: #### 2 4321-2, 32782-7 #### [facility] CLIA [id number] [address] [place] [address] [place] Chloride [Moles/Vol] 109 mmol/L High 98-107 [facility] Comment on above: Order Comment: Speci men Type: BLOOD SPECIMEN [facility] Address: [address] [place] [address] Performed By: #### 2 4321-2, 00588-5 #### [facility] CLIA [id number] [address] [place] [address] [place] CO2 [Moles/Vol] 24 mmol/L Normal 21-32 [facility] Comment on above: Order Comment: Speci men Type: BLOOD SPECIMEN [facility] Address: [address] [place] [address] Performed By: #### 2 4321-2, 31058-2 #### [facility] CLIA [id number] [address] [place] [address] [place] Creatinine [Mass/Vol] 1.01 mg/dL Normal 0.50-1.40 [facility] Comment on above: Order Comment: Sarah gentile Type: BLOOD SPECIMEN [facility] Address: [address] [place] [address] Result Comment: Natalia ents receiving either N-Acetylcysteine (NAC) or Metamizole prior to venipuncture, may have falsely depressed results. Performed By: #### 2 4321-2, 98906-7 #### [facility] CLIA [id number] [address] [place] [address] [place] Creatinine and Glomerular filtration rate.predicted panel (S/P/Bld) 91 mL/min/1.73m??? Normal >=60 [facility] Comment on above: Order Comment: Sarah gentile Type: BLOOD SPECIMEN [facility] Address: [address] [place], [place] [address] Result Comment: Annie mated Glomerular Filtration Rate (eGFR) is calculated using the 2020 CKD-EPI creatinine equation. This equation utilizes serum creatinine, sex, and age as parameters. The creatinine assay has traceable calibration to isotope dilution-mass spectrometry. Refer to KDIGO guidelines for clinical interpretation. In patients with unstable renal function, e.g. those with acute kidney injury, the eGFR may not accurately reflect actual GFR. Performed By: #### 2 4321-2, 49089-0 #### [facility] CLIA [id number] [address] [place] [address] [place] Glucose [Mass/Vol] 91 mg/dL Normal 70-100 [facility] Comment on above: Order Comment: Sarah gentile Type: BLOOD SPECIMEN [facility] Address: [address] [place] [address] Result Comment: The [place] Diabetes Association (ADA) provides guidance for cutoff values for fasting glucose and random glucose. The ADA defines fasting as no caloric intake for at least 8 hours. Fasting plasma glucose results between 100 to 125 mg/dL indicate increased risk for diabetes (prediabetes). Fasting plasma glucose results greater than or equal to 126 mg/dL meet the criteria for diagnosis of diabetes. In the absence of unequivocal hyperglycemia, results should be confirmed by repeat testing. In a patient with classic symptoms of hyperglycemia or hyperglycemic crisis, random plasma glucose results greater than or equal to 200 mg/dL meet the criteria for diagnosis of diabetes. Reference: Standards of Medical Care in Diabetes 2016, [place] [employer]. Diabetes Care. 2016.39(Suppl 1). Results may be falsely elevated after the administration of Sulfapyridine. Results may be falsely depressed after the administration of Sulfasalazine. Performed By: #### 2 4321-2, 13796-6 #### [facility] CLIA [id number] [address] [place] [address] [place] Potassium [Moles/Vol] 4.3 mmol/L Normal 3.5-5.1 [facility] Comment on above: Order Comment: Nani seferino Type: BLOOD SPECIMEN [facility] Address: [address] [place] [address] Performed By: #### 2 4321-2, 01749-6 #### [facility] CLIA [id number] [address] [place] [address] [place] Sodium [Moles/Vol] 138 mmol/L Normal 136-145 [facility] Comment on above: Order Comment: Speci seferino Type: BLOOD SPECIMEN [facility] Address: [address] [place] [address] Performed By: #### 2 4321-2, 80784-1 #### [facility] CLIA [id number] [address] [place] [address] [place] Urea nitrogen [Mass/Vol] 11 mg/dL Normal 7-26 [facility] Comment on above: Order Comment: Speci men Type: BLOOD SPECIMEN [facility] Address: [address] [place] [address] Performed By: #### 2 4321-2, 13404-0 #### [facility] CLIA [id number] [address] [place] [address] [place] CBC W Auto Differential pane l (Bld)on 02-23-2023 Basophils (Bld) [#/Vol] 10*3/uL Normal <0.11 [facility] Comment on above: Order Comment: Speci men Type: BLOOD SPECIMEN [facility] Address: [address] [place] [address] Performed By: #### 5 7021-8 #### [facility] CLIA [id number] [address] [place] [address] [place] Basophils/100 WBC (Bld) 0.2 % Normal [facility] Comment on above: Order Comment: Speci men Type: BLOOD SPECIMEN [facility] Address: [address] [place] [address] Performed By: #### 5 7021-8 #### [facility] CLIA [id number] [address] [place] [address] [place] Differential cell count method Nom (Bld) Auto Normal [facility] Comment on above: Order Comment: Speci men Type: BLOOD SPECIMEN [facility] Address: [address] [place] [address] Performed By: #### 5 7021-8 #### [facility] CLIA [id number] [address] [place] [address] [place] Eosinophils (Bld) [#/Vol] 0.13 10*3/uL Normal <0.46 [facility] Comment on above: Order Comment: Speci men Type: BLOOD SPECIMEN [facility] Address: [address] [address] Performed By: #### 5 7021-8 #### [facility] CLIA [id number] [address] [place] [address] [place] Eosinophils/100 WBC (Bld) 1.5 % Normal [facility] Comment on above: Order Comment: Speci men Type: BLOOD SPECIMEN [facility] Address: [address] [place] [address] Performed By: #### 5 7021-8 #### [facility] CLIA [id number] [address] [place] [address] [place] Erythrocyte distribution width (RBC) [Ratio] 13.4 % Normal 11.5-15.0 [facility] Comment on above: Order Comment: Speci men Type: BLOOD SPECIMEN Ordering Facility: [facility] Address: [address] [address] Performed By: #### 5 7021-8 #### [facility] CLIA [id number] [address] [place] [address] [facility] Hematocrit (Bld) [Volume fraction] 43.7 % Normal 39.0-51.0 [facility] Comment on above: Order Comment: Speci men Type: BLOOD SPECIMEN Ordering Facility: [facility] Address: [address] [address] Performed By: #### 5 7021-8 #### [facility] CLIA [id number] [address] [place] [address] [place] Hemoglobin (Bld) [Mass/Vol] 14.8 g/dL Normal 13.0-17.0 [facility] Comment on above: Order Comment: Speci men Type: BLOOD SPECIMEN Ordering Facility: [facility] Address: [address] [address] Performed By: #### 5 7021-8 #### [facility] CLIA [id number] [address] [place] [address] [place] Immature granulocytes (Bld) [#/Vol] 10*3/uL Normal <0.10 [facility] Comment on above: Order Comment: Speci men Type: BLOOD SPECIMEN [facility] Address: [address] [address] Performed By: #### 5 7021-8 #### [facility] CLIA [id number] [address] [place] [address] [place] Immature granulocytes/100 WBC (Bld) 0.2 % Normal [facility] Comment on above: Order Comment: Speci men Type: BLOOD SPECIMEN [facility] Address: [address] [address] Performed By: #### 5 7021-8 #### [facility] CLIA [id number] [address] [place] [address] [place] Lymphocytes (Bld) [#/Vol] 2.18 10*3/uL Normal 1.00-4.00 [facility] Comment on above: Order Comment: Speci men Type: BLOOD SPECIMEN [facility] Facility: [facility] Address: [address] [place] [address] Performed By: #### 5 7021-8 #### [facility] CLIA [id number] [address] [place] [address] [place] Lymphocytes/100 WBC (Bld) 25.3 % Normal [facility] Comment on above: Order Comment: Speci men Type: BLOOD SPECIMEN [facility] Address: [address] [place] [address] Performed By: #### 5 7021-8 #### [facility] CLIA [id number] [address] [place] [address] [place] MCH (RBC) [Entitic mass] 30.8 pg Normal 26.0-34.0 [facility] Comment on above: Order Comment: Speci men Type: BLOOD SPECIMEN [facility] Address: [address] [place] [address] Performed By: #### 5 7021-8 #### [facility] CLIA [id number] [address] [place] [address] [place] MCHC (RBC) [Mass/Vol] 33.9 g/dL Normal 30.5-36.0 [facility] Comment on above: Order Comment: Speci men Type: BLOOD SPECIMEN [facility] Address: [address] [place] [address] Performed By: #### 5 7021-8 #### [facility] CLIA [id number] [address] [place] [address] [place] MCV (RBC) [Entitic vol] 91.0 fL Normal 80.0-100.0 [facility] Comment on above: Order Comment: Speci men Type: BLOOD SPECIMEN [facility] Address: [address] [address] Performed By: #### 5 7021-8 #### [facility] CLIA [id number] [address] [place] [address] [place] Monocytes (Bld) [#/Vol] 0.51 10*3/uL Normal <0.87 [facility] Comment on above: Order Comment: Speci men Type: BLOOD SPECIMEN [facility] Address: [address] [address] Performed By: #### 5 7021-8 #### [facility] CLIA [id number] [address] [place] [address] [place] Monocytes/100 WBC (Bld) 5.9 % Normal [facility] Comment on above: Order Comment: Speci men Type: BLOOD SPECIMEN [facility] Address: [address] [address] Performed By: #### 5 7021-8 #### [facility] CLIA [id number] [address] [place] [address] [place] Neutrophils (Bld) [#/Vol] 5.74 10*3/uL Normal 1.45-7.50 [facility] Comment on above: Order Comment: Speci men Type: BLOOD SPECIMEN [facility] Address: [address] [address] Performed By: #### 5 7021-8 #### [facility] CLIA [id number] [address] [place] [address] [place] Neutrophils/100 WBC (Bld) 66.9 % Normal [facility] Comment on above: Order Comment: Speci men Type: BLOOD SPECIMEN [facility] Address: [address] [address] Performed By: #### 5 7021-8 #### [facility] CLIA [id number] [address] [place] [address] [place] Nucleated RBC (Bld) [#/Vol] 10*3/uL Normal <0.01 [facility] Comment on above: Order Comment: Speci men Type: BLOOD SPECIMEN Order[facility] Address: [address] [address] Performed By: #### 5 7021-8 #### [facility] CLIA [id number] [address] [place] [address] [place] Nucleated RBC/100 WBC (Bld) [Ratio] 0.0 /100 WBC Normal [facility] Comment on above: Order Comment: Speci men Type: BLOOD SPECIMEN [facility]ing Facility[facility] Address: [address] Performed By: #### 5 7021-8 #### [facility] CLIA [id number] [address] [place] [address] [place] Platelet mean volume (Bld) [Entitic vol] 9.5 fL Normal 9.0-12.7 [facility] Comment on above: Order Comment: Speci men Type: BLOOD SPECIMEN [facility] Address: [address] Performed By: #### 5 7021-8 #### [facility] CLIA [id number] [address] [place] [address] [place] Platelets (Bld) [#/Vol] 319 10*3/uL Normal 150-400 [facility] Comment on above: Order Comment: Speci men Type: BLOOD SPECIMEN [facility] Address: [address] Performed By: #### 5 7021-8 #### [facility] CLIA [id number] [address] [place] [address] [place] RBC (Bld) [#/Vol] 4.80 10*6/uL Normal 4.20-6.00 [facility] Comment on above: Order Comment: Speci men Type: BLOOD SPECIMEN [facility] Address: [address] Performed By: #### 5 7021-8 #### [facility] CLIA [id number] [address] [place] [address] [place] WBC (Bld) [#/Vol] 8.60 10*3/uL Normal 3.70-11.00 [facility] Comment on above: Order Comment: Speci men Type: BLOOD SPECIMEN [facility] Address: [facility] [place] [address] Performed By: #### 5 7021-8 #### [facility] CLIA [id number] [facility] [place] [address] [facility] CONSULTon 02-23-2023 CONSULT HNO ID: [id number] Author: Thor Valerio MD Service: Otolaryngology Author Type: Physician Type: Consults Filed: 02/23/2023 6:46 PM Note Text: February 23, 2023 This 47-year-old patient presents with a 5-day history of progressive swelling of the left lower eyelid. He was seen yesterday at [facility] where an attempted incision and drainage was performed but they did not get any fluid. He was started on Bactrim and warm compresses but states that the swelling got worse so he came to [facility] emergency department this afternoon. Afebrile. White blood cell count normal. A CT soft tissue of the face was performed and the radiologist read it as showing a 1.5 cm preseptal abscess. I was consulted to drain the abscess. He has been admitted to the hospitalist service and started on IV Unasyn and vancomycin. On physical examination there is erythema and edema of the entire left lower eyelid. Patient denies any loss of visual acuity or diplopia. And he has no obvious gaze restriction in any quadrant. There is no fluctuance or obvious pointing abscess. There is no proptosis. I reviewed the images of the CT personally. I see edema of the orbital fat that is asymmetrically larger on the left side versus the right side but I do not see any drainable fluid collection. I attempted to review this with the radiologist but there are none in house tonight. I have put in a call to the neuro radiologist who is covering and they are supposed to call me back sometime. I clearly do not see evidence of an abscess here to warrant further surgical intervention on this patient tonight. I agree with the vancomycin but find that the Unasyn might be unnecessary. I would also add steroids and this was discussed with Dr. Puga who will write those orders. We will follow. [facility] CONSULT PROGon 02-23-2023 CONSULT PROG HNO ID: [id number] Author: Becka Osuna [facility] Service: Pharmacy Author Type: Pharmacist Type: Consult Progress Note Filed: 02/23/2023 4:52 PM Note Text: PHARMACY VANCOMYCIN DOSING NOTE Patient Name: Reji Victor Admission Date: 02/23/2023 Date of Consult: 02/23/2023 Time of Consult: 4:51 PM Indication: Skin/Soft tissue infection Goal Range: 10-20 mcg/mL RECOMMENDATIONS/PLAN: Pharmacy consulted for vancomycin dosing for Reji Victor, a 47 year old male. 1. Patient is currently ordered Vancomycin 1.5 g IV q12h. Today is day 1 of therapy. 2. No vancomycin level has been drawn for this dosing regimen. 3. The present dose of vancomycin is the recommended dosage for this patient at this time. Continue therapy as prescribed. 4. The next vancomycin level will be ordered for 02/27 unless clinically indicated sooner. (Pharmacy will order) We will follow patient renal function, vancomycin levels and doses with you during the course of therapy. Additional recommendations will appear in follow up notes. If you have any questions, please contact pharmacy at [phone]. Age: [age] year old Allergies: ALLERGIES Allergen Reactions Adhesive Tape-Silic* Rash Hydrocodone-Acetami* GI Upset Last 3 Encounter Wt Readings: Date: Wt: 02/23/2023 99.8 kg (220 lb) 02/19/2023 104.3 kg (230 lb) 01/30/2023 104.3 kg (230 lb) Last 1 Encounter Ht Readings: Date: Ht: 02/23/2023 177.8 cm (5' 10) CrCl: 104.7 mL/min Temp (24hrs), Av.8 ?C (98.2 ?F), Min:36.7 ?C (98 ?F), Max:36.8 ?C (98.3 ?F) - Current Temp: 36.8 ?C (98.3 ?F) Labs BUN (mg/dL) Date Value 02/23/2023 11 01/04/2022 12 11/14/2020 13 Creatinine (mg/dL) Date Value 02/23/2023 1.01 01/04/2022 0.98 11/14/2020 0.92 WBC (k/uL) Date Value 02/23/2023 8.60 01/04/2022 8.51 01/14/2021 6.94 Vancomycin Levels: No results found for: ELEANOR Osuna, [facility] CT FACIAL BONE/JOHANNA W IVCONo n 02-23-2023 CT FACIAL BONE/JOHANNA W IVCON * * *Final Report* * * DATE OF EXAM: Feb 23 2023 1:24PM [facility] 0010 - CT FACIAL BONE/JOHANNA W IVCON / PROCEDURE REASON: Maxillary/facial abscess * * * * Physician Interpretation * * * * EXAMINATION: CT FACIAL BONE/JOHANNA W IVCON CLINICAL HISTORY: Maxillary/facial abscess Technique: Spiral high resolution axial unenhanced images were obtained through the facial bones with sagittal and coronal planar reconstructions. MQ: [id number] CT Radiation dose: Integrated Dose-Length Product (DLP) for this visit = 460.7 mGy*cm. CT Dose Reduction Employed: Automated exposure control(AEC) and iterative recon COMPARISON: None. RESULT: Faith Doctor (topogram) images: No additional findings. Soft Tissues: Skin thickening and subcutaneous fat stranding of the infraorbital soft tissues overlying the LEFT maxilla. 1.5 x 0.6 cm rim-enhancing fluid collection overlying the LEFT zygoma suspicious for subcutaneous abscess formation. Mild subcutaneous fat stranding and thickening of the LEFT preseptal soft tissues. No evidence of post septal inflammation. Facial bones: No evidence of an acute fracture in the visualized facial bones. Orbits: No evidence of an acute fracture. The globes are intact. LEFT infraorbital cellulitis and subcutaneous abscess as detailed above. Otherwise, the soft tissue planes of the orbits are maintained. Paranasal Sinuses: The paranasal sinuses are clear. Foreign Bodies: No evidence of radiopaque foreign bodies. Other: No evidence of a remote fracture. No lytic or blastic process seen in the facial bones. IMPRESSION: Findings suggesting LEFT orbital preseptal and infraorbital cellulitis with likely 1.5 cm abscess in the LEFT infraorbital soft tissues overlying the LEFT zygoma. No evidence of post septal orbital inflammation. [employer] Consult[employer] Supervisor: NEIDA Transcribe Date/Time: Feb 23 2023 1:28P Dictated by : KRISTEN ARECHIGA MD This examination was interpreted and the report reviewed and electronically signed by: KRISTEN ARECHIGA MD on Feb 23 2023 1:32PM EST [id number] [facility] ED NOTEon 02-23-2023 ED NOTE HNO ID: [id number] Author: Con Guzman RN Service: ? Author Type: Registered Nurse Type: ED Notes Filed: 02/23/2023 3:31 PM Note Text: RN called report Flower RN in CDU at this time [facility] ED PROV NOTEon 02-23-2023 ED PROV NOTE HNO ID: [id number] Author: Abiola Mcgowan MD Service: Emergency Medicine Author Type: Physician Type: ED Provider Notes Filed: 02/23/2023 2:36 PM Note Text: ED Provider Note Patient Name: eRji Victor : 1975 SERVICE DATE: 02/23/23 History Patient presents with: Eye Complaint: Pt states pain started in his nose along with a knot feeling inside his left nare. Pt states that Thursday he started having pain and swelling underneath the left eye. Pt states was at [facility] yesterday and they attempted to drain it and nothing came out. Pt was put on bactrim and told to do warm compresses. Pt states worse then it was yesterday and has gotten bigger Patient states he developed some discomfort on the left side of his nose last Thursday. Then about a day later developed some swelling on the left I lateral infraorbital region, which progressively involved the entire left infraorbital area. The area has become increasingly painful. He went to [facility] yesterday with unsuccessful attempt at drainage of the swollen area. They placed him on Bactrim, advised warm compresses, but the swelling is progressed further and now comes to our ED for evaluation of this complaint. He denies any trauma or injury. He is not diabetic. He has had no drainage. Denies any double vision or vision loss. Denies headache or neck stiffness. No sore throat. No problems breathing or swallowing. Denies any ear complaints. HPI otherwise unremarkable 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: Patient PAST MEDICAL HISTORY Diagnosis Date - Asthma - Colon polyps GI in [place] - COPD (chronic obstructive pulmonary disease) (HCC) - FHx: colon cancer Mother - GERD (gastroesophageal reflux disease) - Hiatal hernia - HTN (hypertension) - Incisional hernia 04/14/2018 Added automatically from request for surgery [id number] - Kidney stone - Lower abdominal pain 06/11/2017 - Microhematuria 06/11/2017 - Mitral valve prolapse - Multiple thyroid nodules - Obesity (BMI 30.0-34.9) - Osteoarthritis right knee - PTSD (post-traumatic stress disorder) - Spinal stenosis - Tobacco use Quit 11/2017 - Umbilical hernia 04/14/2018 Added automatically from request for surgery [id number] PAST SURGICAL HISTORY Procedure Laterality Date - ARTHROSCOPY KNEE DIAGNOSTIC W/WO SYNOVIAL BX SPX Right 2000 Arthroscopy, knee - CAPSULE ENDOSCOPY ESOPHAGEAL 11/25/2019 - CHOLECYSTECTOMY 2014 - COLONOSCOPY 06/2017 Normal - COLONOSCOPY 2016 polyps - COLONOSCOPY 08/25/2018 normal, repeat in [address] Quintanilla - COLONOSCOPY FLX DX W/COLLJ SPEC WHEN PFRMD 08/15/2019 normal, repeat in 5 years due to family history - CYSTOSCOPY,+URETEROSCOPY - EGD 2016 Small hiatal hernia - EGD 01/2018 - EGD 08/25/2018 gastritis, GERD, hiatal hernia - EGD 08/15/2019 Duodenitis, gastritis. Neg. - H. Pylori. - EYE SURGERY HX 1990s - GI TRC IMG INTRALUMINAL ESOPHAGUS-ILEUM W/IANDR 11/25/2019 Delayed gastric transit. Rapid small bowel transit. Otherwise normal - LEG SURGERY HX Right 1999 ORIF Tib-fib - PAST SURGICAL HISTORY OF Right 2000 Hardware removal right leg - PAST SURGICAL HISTORY OF 12/2019 Back injections - REPAIR FIRST ABDOMINAL WALL HERNIA 04/28/2018 Hernia repair, incisional - SIGMOIDOSCOPY 11/03/2019 poor anal sphincter tone FAMILY HISTORY Problem Relation Age of Onset - Colon Cancer Mother early 50s - Diabetes Mother - Heart Mother - Hypertension Mother - Diabetes Father - Heart Father [place] at age 63 - Hypertension Father - Colon Cancer Father - No Known Problems Sister Social History Tobacco Use - Smoking status: Every Day Packs/day: 1.50 Years: 20.00 Additional pack years: 0.00 Total pack years: 30.00 Types: Cigarettes - Smokeless tobacco: Current Types: Chew - Tobacco comments: Quit smoking in 07/2017, started again end of 08/2017, quit again beginning of 11/2017 Vaping Use - Vaping Use: Never used Substance and Sexual Activity - Alcohol use: Yes Comment: rarely - Drug use: Yes Comment: CBD gummies - Sexual activity: Not on file ALLERGIES Allergen Reactions - Adhesive Tape-Silic* Rash - Hydrocodone-Acetami* GI Upset Review of Systems All other systems reviewed and are negative. Physical Exam Vitals [02/23/23 0914] BP Pulse Temp Temp src Resp SpO2 Weight Height 147/83 78 36.7 ?C (98 ?F) Oral 16 99 % 99.8 kg (220 lb) 1.778 m (5' 10) Physical Exam Vitals and nursing note reviewed. Constitutional: General: He is not in acute distress. Appearance: Normal appearance. HENT: Head: Atraumatic. Left Ear: Tympanic membrane normal. Nose: Comments: There is some mild swelling appreciated of the left side of the nose. No signs of trauma. No drainage. Internally, nares appears grossly okay. Mouth/Throat: Mouth: Mucous membranes are moist. Pharynx: Oropharynx is clear. Eyes: Extraocular Movements: Extra (more content not included)... Normal [facility] HISTORY PHYSICALon HISTORY PHYSICAL HNO ID: [id number] Author: Huy Puga MD Service: Hospital Medicine Author Type: Physician Type: HANDP Filed: 02/23/2023 6:18 PM Note Text: HOSPITALIST SERVICE HISTORY AND PHYSICAL SUBJECTIVE Chief Complaint / reason for admission: Preseptal and infraorbital atelectasis HPI: 47-year-old male with past medical history of Asthma Hypertension GERD Presented to the emergency department complaining of left-sided facial pain. Work-up in the emergency department showed a left preseptal and infraorbital cellulitis for which the patient was started on ampicillin and vancomycin. Patient was being admitted under medicine service for further care. Patient stated he had a sore spot in his nose around 5 days prior to presentation which progressed to his infraorbital area and that prompted him to go to [place] and they attempted drainage however since his symptoms worsened he came here to [facility]. This has never happened before. PAST MEDICAL HISTORY As noted above PAST SURGICAL HISTORY Procedure Laterality Date CHOLECYSTECTOMY 2015 EYE SURGERY HX - for lazy eyes LEG SURGERY HX Right 1999 ORIF Tib-fib PAST SURGICAL HISTORY OF Right 2001 Hardware removal right leg REPAIR FIRST ABDOMINAL WALL HERNIA 04/28/2018 Hernia repair, incisional FAMILY HISTORY Problem Relation Age of Onset Colon Cancer Mother early 50s Diabetes Mother Heart Mother Hypertension Mother Diabetes Father Heart Father [place] at age 63 Hypertension Father Colon Cancer Father No Known Problems Sister Social History Tobacco Use Smoking status: Every Day Types: Cigarettes Smokeless tobacco: Current Types: Chew Vaping Use Vaping Use: Never used Substance Use Topics Alcohol use: Yes Comment: rarely Drug use: Not currently Comment: CBD gummies Occupation - currently unemployed. ALLERGIES Allergen Reactions Adhesive Tape-Silic* Rash Hydrocodone-Acetami* GI Upset Significant home meds: Magnesium oxide(taken) Omeprazole 40 mg(taken) Trazodone 200 at bedtime Albuterol Famotidine 40 mg(taken) Zolpidem 10 mg( not taking this any more) Meloxicam(taken) Hycosamine(taken) Review of Systems Constitutional: Negative for fever. Respiratory: Negative for shortness of breath. Cardiovascular: Negative for chest pain. Gastrointestinal: Negative for diarrhea. Psychiatric/Behavioral: The patient is not nervous/anxious. OBJECTIVE: Vital Signs: BP 143/88 Pulse 82 Temp (Src) 98 (Oral) Resp 16 Ht 5' 10 (1.78m) Wt 220 lb (99.8kg) SpO2 98% BMI 31.57 kg/(m2). O2 Therapy: Room Air Patient Vitals for the past 24 hrs: Pulse BP 02/23/23 1335 82 143/88 02/23/23 1200 78 -- 02/23/23 1100 81 127/76 02/23/23 1030 -- 130/86 02/23/23 0914 78 147/83 Physical Exam Constitutional: General: He is not in acute distress. Appearance: He is not ill-appearing or toxic-appearing. Eyes: Comments: Left infraorbital area has a red swollen area measuring about 4 to 5 cm in length. It is red. Cardiovascular: Rate and Rhythm: Normal rate and regular rhythm. Pulses: Normal pulses. Heart sounds: Normal heart sounds. No murmur heard. No friction rub. No gallop. Pulmonary: Effort: Pulmonary effort is normal. No respiratory distress. Breath sounds: Normal breath sounds. No wheezing, rhonchi or rales. Abdominal: General: Bowel sounds are normal. There is no distension. Palpations: Abdomen is soft. Tenderness: There is no abdominal tenderness. Musculoskeletal: Right lower leg: No edema. Left lower leg: No edema. Skin: Coloration: Skin is not jaundiced. Neurological: Mental Status: He is alert. Psychiatric: Mood and Affect: Mood normal. Labs: CBC: Recent Labs 02/23/23 1048 WBC 8.60 HB 14.8 HCT 43.7 PLT 319 MCV 91.0 RDWCV 13.4 NEUTP 66.9 ABSNEUT 5.74 LYMPHP 25.3 MONOP 5.9 COAG: No results for input(s): APTT, INR in the last 168 hours. BMP: Recent Labs 02/23/23 1048 GLUC 91 NA 138 K 4.3 CHLOR 109* CO2 24 ANION 5 BUN 11 CREAT 1.01 CHEM: Recent Labs 02/23/23 1048 CA 9.6 HEPATIC: No results for input(s): ALKPHOS, ALT, AST, TBILI, LIPASE in the last 168 hours. URINALYSIS:No results for input(s): PH, SPGR, UGLUC, UBILI, UKET, UHB, UPROT, UROBIL, UWBC, SSA in the last 168 hours. Invalid input(s): NITR CARDIAC: No results for input(s): CKTEST, CKMB, CKMBP in the last 168 hours.TROPONIN@:8,No results found for: BNP:8)@ No intake or output data in the 24 hours ending 02/23/23 1401 Serum creatinine: 1.01 mg/dL 02/23/23 1048 Estimated creatinine clearance: 104.7 mL/min Imaging: CT facial bone and mandible showed a left orbital preseptal and infraorbital cellulitis about 1.5 cm abscess in the left infraorbital soft tissues overlying the left zygoma. Assessment/Plan Problem List Preseptal and infraorbital cellulitis on the left Abscess (more content not included)... Normal [facility] Procalcitonin SerPl-mCncon 0 02-23-2023 Procalcitonin [Mass/Vol] ng/mL Normal 0.00-0.50 [facility] Comment on above: Order Comment: Speci men Type: BLOOD SPECIMENOrdering Facility: [facility] Address: [address], [place] [address] Result Comment: PCT Concentration Interpretation PCT <=0.1 ng/mL: Normal range for healthy adults PCT >0.1 ng/mL and <0.5 ng/mL: Systemic infection (sepsis) is possible and may require antibiotic treatment, but other conditions are known to elevate PCT as well. PCT >0.5 ng/mL: Should be considered at risk for developing severe sepsis or septic shock. PCT >2.0 ng/mL: Important systemic inflammatory response. Almost exclusively indicates episode of severe bacterial sepsis or septic shock. Performed By: #### 2 4321-2, 31816-5 ####[facility] LABORATORYCLIA [id number] [place] [id number] [facility] ED.PDOCon 02-22-2023 ED.PDOC REJI VICTOR Male [id number] Attending provider: [facility] [id number] Anat Marley 1975 47 DOS: 02/22/23 Hx/Exam - History of Present Illness Location: L upper cheek Symptom Duration: few Symptom Duration: Day(s) Onset of Symptoms: acute Intensity: mild-moderate Quality: boil Episode Frequency: constant Radiations: none Symptoms Improve with: none Symptoms Worse with: non Assoc Sxs/Pertinent Hx: swelling, redness Patient/Family Denies: eye pain, vision change, fevers, drainage, dental pain,cp,sob,dizzy,n/v - Review of Systems All Other Systems: Pertinent Positives in HPI, All Other Systems Negative Constitutional: Denies: Fever, Chills, Sweats, Weakness, Malaise Eyes: Denies: Pain, Blurred Vision, Double Vision, Conjunctivae Inflammation, Eyelid Inflammation, Redness, Eye Discharge ENT: Denies: Ear Pain, Nose Congestion, Mouth Pain, Mouth Swelling, Throat Pain, Throat Swelling Respiratory: Denies: Cough, Shortness of Breath, Wheezing Cardiovascular: Denies: Chest Pain, Palpitations, Light Headedness Gastrointestinal: Denies: Nausea, Vomiting Skin: Other. Denies: Rash, Lesions, Jaundice, Laceration, Abrasion, Bruising Neurological: Denies: Headache, Weakness, Numbness, Incoordination, Change in Speech, Confusion, Seizures - Past Medical History ED PMH: Yes Arthritis (BACK SPINAL STENOSIS), Yes Asthma - Past Surgical History Surgical History: Yes Other (mesh hernia) Comments: lithotripsy, lazy eye surgery - Social History Smoking Status: Current every day smoker Living Conditions: Family - Physical Exam General Appearance: awake, alert, no apparent distress Eyes: PERRL, EOMI, conjunctivae clear, no discharge, no foreign body, no scleral icterus Head, Ears, Nose, and Throat: pharynx normal, mucous membranes moist Neck: supple, full ROM Respiratory: lungs clear, no wheezes/rhonchi/rales, no respiratory distress, no accessory muscle use Cardiovascular: regular rate, rhythm, no murmur Extremity: normal range of motion, non-tender, normal inspection, normal capillary refill Pulses: Radial: 2+ Neurologic: no motor/sensory deficits, normal gait, normal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 Screen - Discharge Discharge Problem: Abdominal pain, Nausea vomiting and diarrhea Disposition: HOME/SELF CARE Additional Instructions: Static use pain and nausea medication as needed. Hydrate and advance diet as tolerated.If the symptoms worsen or new symptoms develop return to the Emergency Department (ED) immediately. Call your doctor for additional questions. Condition: Good Prescriptions: Naproxen [Naprosyn] 500 mg PO BID #20 tab Transmission Status: Pending to [id number] Ondansetron [Zofran Odt] 4 mg PO Q6HR #6 tab Transmission Status: Pending to [facility] #[id number] Referrals: provider (Unknown),Unlisted [Primary Care Provider] - Dictated By: Sandoval Dexter DO Dictated Date/Time:02/10/23 1541 Electronically Signed Date/Time: 02/10/23 1551 Normal [facility] LACTIC ACIDon 02-10-2023 Lactate [Moles/Vol] 1.2 mmol/L Normal 0.4-2.0 [facility] Comment on above: Order Comment: Y Performed By: #### L A ####[address] [address] Other Comment: Speci men Slightly Hemolyzed LIPASEon 02-10-2023 Lipase [Catalytic activity/Vol] 61 U/L Normal 13-75 [facility] Comment on above: Result Comment: METH ODOLOGY HAS CHANGED, PLEASE NOTE NEW REFERENCE RANGES Performed By: #### M N, LIP ####[address] [address] Laboratory studies (set)on 0 02-10-2023 Albumin [Mass/Vol] 3.0 g/dL Low 3.4-5.0 [facility] Work Phone: Albumin/Globulin [Mass ratio] 0.7 {ratio} Low 1.1-1.8 [facility] Work Phone: ALP [Catalytic activity/Vol] 85 U/L 45-117 [facility] Work Phone: ALT [Catalytic activity/Vol] 29 U/L 12-78 [facility] Work Phone: Anion gap [Moles/Vol] 7.6 mmol/L Low 11-23 [facility] Work Phone: AST [Catalytic activity/Vol] 28 U/L 15-37 [facility] Work Phone: Band form neutrophils/100 WBC (Bld) 1 % 0-10 [facility] Work Phone: Basophils (Bld) [#/Vol] 0.1 10*3/uL 0-0.1 [facility] Work Phone: Basophils/100 WBC (Bld) 0.40 % 0-2 [facility] Work Phone: Bilirubin [Mass/Vol] 0.4 mg/dL 0.2-1.0 [facility] Work Phone: Calcium [Mass/Vol] 8.8 mg/dL 8.5-10.1 [facility] Work Phone: Chloride [Moles/Vol] 111 mmol/L High 98-107 [facility] Work Phone: CO2 [Moles/Vol] 23.0 mmol/L 21-32 [facility] Work Phone: Creatinine [Mass/Vol] 1.00 mg/dL 0.7-1.3 [facility] Work Phone: Differential Total Cells Counted 100 #CELLS [facility] Work Phone: Eosinophils (Bld) [#/Vol] 0.1 10*3/uL 0.0-1.80 [facility] Work Phone: Eosinophils/100 WBC (Bld) 2 % 0-8 [facility] Work Phone: Eosinophils/100 WBC (Bld) 0.6 % 0-8 [facility] Work Phone: Erythrocyte distribution width (RBC) [Ratio] 14.7 % 11.0-15.5 [facility] Work Phone: Estimated GFR () [facility] Work Phone: Comment on above: THE NORMAL LEVEL OF GFR VARIES ACCORDING TO AGE, SEX, AND BODY SIZE. A GFR LEVEL OF LESS THAN 60 ML/MIN REPRESENTS LOSS OF THE ADULT LEVEL OF NORMAL KIDNEY FUNCTION. GFR/1.73 sq M.predicted among non-blacks MDRD (S/P/Bld) [Vol rate/Area] [facility] Work Phone: Globulin (S) [Mass/Vol] 4.1 g/dL 2.5-4.6 [facility] Work Phone: Glucose [Mass/Vol] 114 mg/dL High 70-100 [facility] Work Phone: Granulocytes (Bld) [#/Vol] 10.1 10*3/uL High 2.2-9.1 [facility] Work Phone: Granulocytes/100 WBC (Bld) 74.1 % 42-80 [facility] Work Phone: Hematocrit (Bld) [Volume fraction] 42.6 % 41.0-53.0 [facility] Work Phone: Hemoglobin (Bld) [Mass/Vol] 14.6 g/dL 14.0-18.0 [facility] Work Phone: Immature Granulocytes [facility] Work Phone: Lactate [Moles/Vol] 1.2 mmol/L 0.4-2.0 [facility] Work Phone: Comment on above: Specimen Slightly He molyzed Lipase [Catalytic activity/Vol] 61 U/L 13-75 [facility] Work Phone: Comment on above: METHODOLOGY HAS SHEARER GED, PLEASE NOTE NEW REFERENCE RANGES Lymphocytes (Bld) [#/Vol] 2.5 10*3/uL 1.0-4.0 [facility] Work Phone: Lymphocytes Auto (Unsp spec) [#/Vol] 22 % 16-48 [facility] Work Phone: Lymphocytes/100 WBC (Bld) 18.2 % 16-48 [facility] Work Phone: MCH (RBC) [Entitic mass] 31.1 pg 26.0-32.0 [facility] Work Phone: MCHC (RBC) [Mass/Vol] 34.2 g/dL 31.0-36.0 [facility] Work Phone: MCV (RBC) [Entitic vol] 91.0 fL 80-97 [facility] Work Phone: [phone] Monocyte distribution width Auto (Bld) [Entitic vol] 24.66 0-20 [facility] Work Phone: Comment on above: For adults in ED, MD W>20.0 may be associated with a higher risk of sepsis during the first 12hrs of hospital admission Monocytes (Bld) [#/Vol] 0.9 10*3/uL 0.1-1.7 [facility] Work Phone: Monocytes/100 WBC (Bld) 4 % 3-9 [facility] Work Phone: Monocytes/100 WBC (Bld) 6.7 % 3-9 [facility] Work Phone: Platelet mean volume (Bld) [Entitic vol] 8.8 fL 6.4-10.5 [facility] Work Phone: Platelets (Bld) [#/Vol] 218 10*3/uL 140-450 [facility] Work Phone: Platelets LM Ql (Bld) [facility] Work Phone: [phone] Potassium [Moles/Vol] 3.8 mmol/L 3.5-5.1 [facility] Work Phone: Protein [Mass/Vol] 7.1 g/dL 6.0-8.3 [facility] Work Phone: RBC (Bld) [#/Vol] 4.68 10*6/uL 4.40-6.30 [facility] Work Phone: RBC morphology finding Nom (Bld) [facility] Work Phone: Segmented neutrophils/100 WBC (Bld) 71 % 42-80 [facility] Work Phone: Sodium [Moles/Vol] 138 mmol/L 136-145 [facility] Work Phone: Urea nitrogen [Mass/Vol] 17.0 mg/dL 7-18 [facility] Work Phone: WBC (Bld) [#/Vol] 13.6 10*3/uL High 4.0-11.0 [facility] Work Phone: Appearance (U) CLEAR [facility] Work Phone: Bilirubin Confirm Ql (U) NEGATIVE [facility] Work Phone: Bilirubin Ql (U) High NEGATIVE [facility] Work Phone: Color (U) [facility] Work Phone: Glucose Ql (U) NEGATIVE [facility] Work Phone: Hemoglobin Ql (U) High NEGATIVE [facility] Work Phone: Hyaline casts LM Ql (Urine sed) 0-3 [facility] Work Phone: Ketones Ql (U) High NEGATIVE [facility] Work Phone: Leukocyte esterase Test strip Ql (U) NEGATIVE [facility] Work Phone: Mucus Ql (Urine sed) <1+ [facility] Work Phone: Nitrite Ql (U) NEGATIVE [facility] Work Phone: Protein Ql (U) High NEGATIVE [facility] Work Phone: RBC LM.HPF (Urine sed) [#/Area] 0-2 [facility] Work Phone: Specific gravity (U) [Rel density] 1.025 1.003-1.035 [facility] Work Phone: Urine Bacteria <1+ [facility] Work Phone: Urine Squamous Epithelial Cells NONE-MANY [facility] Work Phone: Urine WBC 0-3 [facility] Work Phone: Urobilinogen Ql (U) 1.0 E.U./dL <=1.0 [facility] Work Phone: Yeast LM Ql (Urine sed) NEGATIVE [facility] Work Phone: URINALYSISon 02-10-2023 Appearance (U) Clear Normal CLEAR [facility] Comment on above: Order Comment: What Is Urine Source? Random What Is Urine Source? Random What Is Urine Source? Random Performed By: #### U KE, UA, UICTO #### [address] [address] Color (U) Dk. Yellow Normal [facility] Comment on above: Order Comment: What Is Urine Source? Random What Is Urine Source? Random What Is Urine Source? Random Performed By: #### U KE, UA, UICTO #### [address] [address] Hemoglobin Ql (U) 2+ Abnormal NEGATIVE [facility] Comment on above: Order Comment: What Is Urine Source? Random What Is Urine Source? Random What Is Urine Source? Random Performed By: #### U KE, UA, UICTO #### [address] [address] pH (U) 5.5 [pH] Normal 5.0-9.0 [facility] Work Phone: Comment on above: Order Comment: What Is Urine Source? Random What Is Urine Source? Random What Is Urine Source? Random Performed By: #### U KE, UA, UICTO #### [address] [address] URINE BILIRUBIN - DIPSTICK 1+ Abnormal NEGATIVE [facility] Comment on above: Order Comment: What Is Urine Source? Random What Is Urine Source? Random What Is Urine Source? Random Performed By: #### U KE, UA, UICTO #### [address] [address] URINE GLUCOSE -DIPSTICK Negative Normal NEGATIVE [facility] Comment on above: Order Comment: What Is Urine Source? Random What Is Urine Source? Random What Is Urine Source? Random Performed By: #### U KE, UA, UICTO #### [address] [address] URINE KETONE 2+ Abnormal NEGATIVE [facility] Comment on above: Order Comment: What Is Urine Source? Random What Is Urine Source? Random What Is Urine Source? Random Performed By: #### U KE, UA, UICTO #### [address] [address] URINE LEUK ESTERASE Negative Normal NEGATIVE [facility] Comment on above: Order Comment: What Is Urine Source? Random What Is Urine Source? Random What Is Urine Source? Random Performed By: #### U KE, UA, UICTO #### [address] [address] URINE NITRITE - DIPSTICK Negative Normal NEGATIVE [facility] Comment on above: Order Comment: What Is Urine Source? Random What Is Urine Source? Random What Is Urine Source? Random Performed By: #### U KE, UA, UICTO #### [address] [address] URINE PROTEIN - DIPSTICK Trace Abnormal NEGATIVE [facility] Comment on above: Order Comment: What Is Urine Source? Random What Is Urine Source? Random What Is Urine Source? Random Performed By: #### U KE, UA, UICTO #### [address] [address] URINE SPEC GRAVITY, DIPSTICK 1.025 Normal 1.003-1.035 [facility] Comment on above: Order Comment: What Is Urine Source? Random What Is Urine Source? Random What Is Urine Source? Random Performed By: #### U KE, UA, UICTO #### [address] [address] URINE UROBILINOGEN - DIPSTICK 1.0 E.U./dL Normal <=1.0 [facility] Comment on above: Order Comment: What Is Urine Source? Random What Is Urine Source? Random What Is Urine Source? Random Performed By: #### U KE, UA, UICTO #### [address] [place] [address] URINE BILIRUBIN ICTOTESTon 0 02-10-2023 URINE BILIRUBIN ICTOTEST Negative Normal NEGATIVE [facility] Comment on above: Performed By: #### U KE, UA, UICTO #### [address] [address] URINE MICROSCOPICon 02-11-20 23 Mucus Ql (Urine sed) LOADED Normal <1+ [facility] Comment on above: Performed By: #### U KE, UA, UICTO #### [address] [address] UR SQUAM EPITH FEW Normal NONE-MANY [facility] Comment on above: Performed By: #### U KE, UA, UICTO #### [address] [address] URINE BACTERIA FEW Normal <1+ [facility] Comment on above: Performed By: #### U KE, UA, UICTO #### [address] [address] URINE HYALINE CAST 0-3 Normal 0-3 [facility] Comment on above: Performed By: #### U KE, UA, UICTO #### [address] [address] URINE RBC 5-10 Normal 0-2 [facility] Comment on above: Performed By: #### U KE, UA, UICTO #### [address] [address] URINE WBC 5-10 Normal 0-3 [facility] Comment on above: Performed By: #### U KE, UA, UICTO #### [address] [address] URINE YEAST FEW Normal NEGATIVE [facility] Comment on above: Performed By: #### U KE, UA, UICTO #### [address] [address] CNOVon 01-30-2023 CNOV Office Visit (JOSIE ) ----- REJI VICTOR ([id number]) 1975 [facility] Date Time Provider Department 01/30/23 1:40 PM MAGGIE HESS During your visit today, we recorded the following information about you: Pulse Respiration Blood pressure Weight 94/minute 18/minute 130/80 104.3 kg Height 1.727 m Maggie Hess MD 01/30/2023 1:28 PM Addendum ASSESSMENT AND PLAN: Problem List Items Addressed This Visit Cardiovascular Mixed hyperlipidemia - Primary Overview Reviewed LDL goal and 10-year ASCVD risk score. Encouraged diet rich in vegetables and 150 minutes of moderate intensity activity weekly. Consider starting statin. Relevant Orders LIPID PANEL BASIC COMP METABOLIC PANEL CBC Pulmonary Personal history of tobacco use, presenting hazards to health Overview Discussed health risk associated with tobacco use. Encouraged smoking cessation. Relevant Orders COMP METABOLIC PANEL CBC PNEUMOCOCCAL VACCINE (PREVNAR 20) Rheumatology Lumbar facet arthropathy Overview Imaging studies requested. Continue NSAIDs and muscle relaxer PRN. Will refer to neurosurgery for further evaluation and recommendation. Relevant Orders CONSULT TO NEUROSURGERY Other Class 1 obesity due to excess calories with serious comorbidity and body mass index (BMI) of 34.0 to 34.9 in adult Overview Discussed health risks associated with obesity. Encouraged low calorie diet and 150 minutes of moderate intensity activity weekly. Relevant Orders LIPID PANEL BASIC COMP METABOLIC PANEL CBC Other Visit Diagnoses Need for hepatitis C screening test Relevant Orders HEPATITIS C ANTIBODY IA WITH CONFIRMATION Encounter for immunization Relevant Orders PNEUMOCOCCAL VACCINE (PREVNAR 20) Questions and concerns addressed in office. AVS provided. FOLLOW UP: Return in about 6 months (around 08/02/2023) for Annual Physical. SUBJECTIVE: Reji Victor is a 47 year old male presenting in the office today. CC: Patient presents with: Establish Care: Pt presents today to Establish Care. Pt states he was in the Hospital ER yesterday due to a fall, and now his back is hurting. HPI: Obese male smoker with CMHX of HLD and IBS presents to establish care. Normotensive in office. HLD is currently untreated. Not ready to quit smoking. Reports falling yesterday and hurting his back. Complains of bilateral lower back pain. Was seen at [place]. Prescribed NSAID and muscle relaxer. Has been previously followed by pain management for lumbar facet arthropathy. Has received epidural injections in the past to some benefit. Interested in seeing neurosurgery. X-ray in 2020 revealed mild degenerative changes. Underwent colonoscopy in 2019 that was unremarkable. Reports a more recent colonoscopy in 2021 in [place]. Had polypectomy that revealed benign polyps per patient reporting. Prescribed two antacids and an antispasmodics. PHYSICAL EXAMINATION: BP 130/80 Pulse 94 Resp 18 Ht 5' 8 (1.73m) Wt 230 lb (104.3kg) SpO2 95% BMI 34.98 kg/(m2). Physical Exam Vitals and nursing note reviewed. Constitutional: Appearance: Normal appearance. He is obese. HENT: Head: Normocephalic and atraumatic. Mouth/Throat: Dentition: Abnormal dentition (edentulous). Cardiovascular: Rate and Rhythm: Normal rate. Heart sounds: Normal heart sounds. Pulmonary: Effort: Pulmonary effort is normal. Breath sounds: Normal breath sounds. Musculoskeletal: Lumbar back: Negative right straight leg raise test and negative left straight leg raise test. Right hip: Tenderness (back pain with internal rotation) present. Normal range of motion. Normal strength (pushed legs against examiner's hands with hip flexion and extension though reported weakness when ask to hold leg against gravity). Left hip: Tenderness (back pain with internal rotation) present. Normal range of motion. Normal strength (pushed legs against examiner's hands with hip flexion and extension though reported weakness when ask to hold leg against gravity). Neurological: Mental Status: He is alert. Psychiatric: Mood and Affect: Mood normal. Behavior: Behavior normal. The ASCVD Risk score (Gregory DK, et al., 2019) failed to calculate for the following reasons: Cannot find a previous HDL lab Cannot find a previous total cholesterol lab Maggie Hess MD 01/30/2023 1:26 PM Signed MEDITERRANEAN DIET The Mediterranean diet is inspired by foods eaten in countries that border the [place] Sea. This includes [place], [place], [place], and [place]. The Mediterranean diet is similar to other heart-healthy diets. It promotes foods such as fish, fruits, vegetables, beans, and whole grains. It does not include many meats, dairy products, or sweets. In other ways, the Mediterranean diet is different. For example, it allows for more calories from fats (more content not included)... Normal [facility] ED.PDOCon 01-29-2023 ED.PDOC REJI VICTOR Male [id number] Attending provider: PATO MENENDEZ [id number] Anat Marley 1975 47 DOS: 01/29/23 Hx/Exam - History of Present Illness Chief Complaint: BACK PAIN Location: low back Symptom Duration: 2 Symptom Duration: Day(s) Onset of Symptoms: acute s/p leg gave out while trying to hang security standing on pushmower Intensity: moderate Quality: sharp Episode Frequency: constant Radiations: freedom upper legs Symptoms Improve with: none Symptoms Worse with: movement Assoc Sxs/Pertinent Hx: chronic numbness freedom legs Patient/Family Denies: fevers, cp, sob, dizziness, b/b incont,weak, head injury,loc,abd pain Additional Comments: Has chronic low back pain that radiates to bilateral upper legs with chronic numbness in the areas for several years. He is currently on Flexeril prescribed through his primary. He moved from [place] few months ago and does not have pain management or a spinal physician in this area yet. States the fall occurred while he was trying to stand on a push mower and get onto a railing to hang and security light. States the fall was may be 3 foot high and he fell onto his back.He is not on blood thinners. - Review of Systems All Other Systems: Pertinent Positives in HPI, All Other Systems Negative Constitutional: Denies: Fever, Chills, Sweats, Weakness, Malaise Respiratory: Denies: Cough, Shortness of Breath, Wheezing Cardiovascular: Denies: Chest Pain, Palpitations, Light Headedness Gastrointestinal: Denies: Nausea, Vomiting, Abdominal Pain, Diarrhea, Constipation, Melena, Hematochezia Genitourinary: Denies: Dysuria, Frequency, Urgency, Hematuria, Incontinence, Retention Musculoskeletal: Back Pain, Leg Pain. Denies: Neck Pain, Arm Pain Skin: Denies: Rash, Lesions, Jaundice, Laceration, Abrasion, Bruising Neurological: Numbness. Denies: Headache, Weakness, Incoordination, Change in Speech, Confusion, Seizures - Social History Smoking Status: Never Smoker - Physical Exam General Appearance: awake, alert, no apparent distress Eyes: PERRL, EOMI, conjunctivae clear Head, Ears, Nose, and Throat: pharynx normal, mucous membranes moist Neck: supple, no bony tenderness, full ROM Respiratory: lungs clear, no wheezes/rhonchi/rales, no respiratory distress, no accessory muscle use Cardiovascular: regular rate, rhythm, no murmur Abdomen/GI: non tender, soft, non-distended, normal bowel sounds, no organomegaly, no pulsatile mass, no peritoneal signs Back: no CVA tenderness, no vertebral tenderness, decreased range of motion (Negative straight leg raise, no signs of cord compression or cauda equina), lumbar tenderness (L), lumbar tenderness (R), other (No redness/swelling/warmth/a bscess over spine, no rash) Extremity: normal range of motion, non-tender, normal inspection, normal capillary refill, pelvis stable Pulses: Radial: 2+, Dorsalis Pedis: 2+ Neurologic: no motor/sensory deficits, normal gait, normal strength, normal sensation, speech clear/fluent Psychiatric: oriented x3, calm Skin Exam: warm/dry, normal color - Source of History Source of History: Nursing Notes/Vital Signs/Triage Reviewed and Agree Source of History: Old Medical Records Reviewed Note(s) - Physician Notes Additional Notes, See Orders for Details: 01/29/23 13:27 MEDICAL DECISION MAKING Number and Complexity of Problems Differential Diagnosis: [X]-spinal stenosis, herniated disc, abscess, strain, contusion, compression fx [facility] Data External documents reviewed: [X]-no outside records available to review My EKG Interpretation: [] My CT Interpretation: [] My X-ray Interpretation: [] My Ultrasound Interpretation: [] Decision rules/scored evaluated: [] Tests considered but not ordered: [] Discussed with: [] Treatment and Disposition ED Course: [X]-see below Shared decision making: [X]-patient agreeable with treatment plan Social determinants: [X]-none Code status: [X]-full 01/29/23 14:13 Exam/Proc: LUMBAR SPINE W/O CONTRAST Dept: COMPUTED TOMOGRAPHY EXAMINATION: CT OF THE LUMBAR SPINE WITHOUT CONTRAST 01/29/2023 TECHNIQUE: CT of the lumbar spine was performed without the administration of intravenous contrast. Multiplanar reformatted images are provided for review. Adjustment of mA and/or kV according to patient size was utilized. Automated exposure control, iterative reconstruction, and/or weight based adjustment of the mA/kV was utilized to reduce the radiation dose to as low as reasonably achievable. COMPARISON: 11/19/2021 CT lumbar spine. HISTORY: ORDERING SYSTEM PROVIDED HISTORY: TECHNOLOGIST PROVIDED HISTORY: Reason for Exam: Pain after fall h/o spinal stenosis FINDINGS: BONES/ALIGNMENT: There is normal alignment of the spine. The vertebral body heights are maintained. No osseous destructive lesion is seen. DEGENERATIVE CHANGES: There is minimal loss of disc space height wit (more content not included)... Normal [facility] LUMBAR SPINE W/O CONTRASTon 01-29-2023 LUMBAR SPINE W/O CONTRAST REJI VICTOR Male [id number] Ordering physician: Anat Marley LOC:ER [id number] Attending physician: [id number] DO S: 01/29/23 Acc#: [id number] Exam/Proc: LUMBAR SPINE W/O CONTRAST Dept: COMPUTED TOMOGRAPHY EXAMINATION: CT OF THE LUMBAR SPINE WITHOUT CONTRAST 01/29/2023 TECHNIQUE: CT of the lumbar spine was performed without the administration of intravenous contrast. Multiplanar reformatted images are provided for review. Adjustment of mA and/or kV according to patient size was utilized. Automated exposure control, iterative reconstruction, and/or weight based adjustment of the mA/kV was utilized to reduce the radiation dose to as low as reasonably achievable. COMPARISON: 11/19/2021 CT lumbar spine. HISTORY: ORDERING SYSTEM PROVIDED HISTORY: TECHNOLOGIST PROVIDED HISTORY: Reason for Exam: Pain after fall h/o spinal stenosis FINDINGS: BONES/ALIGNMENT: There is normal alignment of the spine. The vertebral body heights are maintained. No osseous destructive lesion is seen. DEGENERATIVE CHANGES: There is minimal loss of disc space height with mild disc narrowing diffusely, these findings are not significantly changed. There is bilateral facet arthropathy with ligamentum flavum laxity. There is multilevel degenerative central canal narrowing and mild neural foraminal narrowing due to disc bulging, facet arthropathy and ligamentum flavum laxity greatest at L4-5 where it is mild to moderate. SOFT TISSUES/RETROPERITONEUM: No paraspinal mass is seen. There are multiple bilateral low-density renal lesions most likely cysts which are not changed from the prior study. There is the bilateral nonobstructing nephrolithiasis, with a single sub 5 mm stone in each kidney. In the anterior left renal cortex there is a poorly defined 1.2 cm hyperdense area seen on series 4, image 32, this area was not imaged on the prior study. IMPRESSION: No posttraumatic findings. Bilateral presumed renal cysts which are stable, there is a nonspecific hyperdense area in the left kidney anteriorly in the cortex, this finding is nonspecific and a renal cell carcinoma is not excludable. A nonemergent CT scan of the abdomen with without contrast with renal mass protocol is recommended. Stable degenerative change. Electronically signed By Guanakito Lemos MD 01/29/2023 2:00:07 PM EST Workstation ID : [id number] REPORT SIGNATURE ON FILE Electronically Signed Date/Time: 01/29/23 1400 Dictated Date/time: 01/29/23 1351 CC: [facility] CNCOon 01-02-[address] [facility] CBC W Auto Differential pane l (Bld)on 01-04-2022 Abs Immature Gran <0.03 <0.10 k/uL [facility] Basophils (Bld) [#/Vol] 10*3/uL <0.11 k/uL [facility] Basophils/100 WBC (Bld) 0.2 % [facility] Differential cell count method Nom (Bld) Auto [facility] Eosinophils (Bld) [#/Vol] 0.12 10*3/uL <0.46 k/uL [facility] Eosinophils/100 WBC (Bld) 1.4 % [facility] Erythrocyte distribution width (RBC) [Ratio] 13.2 % 11.5 - 15.0 % [facility] Hematocrit (Bld) [Volume fraction] 44.9 % 39.0 - 51.0 % [facility] Hemoglobin (Bld) [Mass/Vol] 14.8 g/dL 13.0 - 17.0 g/dL [facility] Immature Gran % 0.2 % [facility] Lymphocytes (Bld) [#/Vol] 2.65 10*3/uL 1.00 - 4.00 k/uL [facility] Lymphocytes/100 WBC (Bld) 31.1 % [facility] MCH (RBC) [Entitic mass] 30.0 pg 26.0 - 34.0 pg [facility] MCHC (RBC) [Mass/Vol] 33.0 g/dL 30.5 - 36.0 g/dL [facility] MCV (RBC) [Entitic vol] 91.1 fL 80.0 - 100.0 fL [facility] Monocytes (Bld) [#/Vol] 0.44 10*3/uL <0.87 k/uL [facility] Monocytes/100 WBC (Bld) 5.2 % [facility] Neutrophils (Bld) [#/Vol] 5.26 10*3/uL 1.45 - 7.50 k/uL [facility] Neutrophils/100 WBC (Bld) 61.9 % [facility] Nucleated RBC (Bld) [#/Vol] 10*3/uL <0.01 k/uL [facility] Nucleated RBC/100 WBC (Bld) [Ratio] 0.0 /100 WBC [facility] Platelet mean volume (Bld) [Entitic vol] 11.2 fL 9.0 - 12.7 fL [facility] Platelets (Bld) [#/Vol] 222 10*3/uL 150 - 400 k/uL [facility] RBC (Bld) [#/Vol] 4.93 10*6/uL 4.20 - 6.0 0 m/uL [facility] WBC (Bld) [#/Vol] 8.51 10*3/uL 3.70 - 11. 00 k/uL [facility] Comprehensive metabolic 2000 panelon 01-04-2022 Albumin [Mass/Vol] 3.9 g/dL 3.2 - 5.0 g/dL [facility] ALP [Catalytic activity/Vol] 84 U/L 45 - 117 U/L [facility] ALT [Catalytic activity/Vol] 13 U/L 13 - 61 U/L [facility] Anion gap [Moles/Vol] 5 mmol/L 5 - 16 mmol/L [facility] AST [Catalytic activity/Vol] 26 U/L 8 - 34 U/L [facility] Bilirubin [Mass/Vol] 0.4 mg/dL 0.2 - 1 .0 mg/dL [facility] Calcium [Mass/Vol] 9.9 mg/dL 8.5 - 10. 5 mg/dL [facility] Chloride [Moles/Vol]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 ####[facility] [address] CT ABD/PEL W IVCONon 021 CT ABD/PEL W IVCON * * *Final Report* * * DATE OF EXAM: Nov 14 2020 3:17PM [facility] 0530 - CT ABD/PEL W IVCON / PROCEDURE REASON: Infection, abdomen-pelvis * * * * Physician Interpretation * * * * EXAMINATION: CT ABDOMEN AND PELVIS WITH IV CONTRAST CLINICAL HISTORY: 45 years old Male with Infection, abdomen-pelvis ABD PAIN. Review of electronic medical record states: Presenting with abdominal pain and diarrhea. TECHNIQUE: CT of the abdomen and pelvis was performed using standard technique, scanning from just above the dome of the diaphragm to the symphysis pubis. MQ: CTAP_3 Contrast: IV: 150 ml of Omnipaque 300 Oral: None. CT Radiation dose: Integrated Dose-length product (DLP) for this visit = 761 mGy*cm. CT Dose Reduction Employed: Automated exposure control (AEC) COMPARISON: CT 12/20/2019, 12/08/2017 RESULT: Liver: No mass. Biliary: No bile duct dilation. Gallbladder is absent. Spleen: No mass. No splenomegaly. Pancreas: No mass or duct dilation. Adrenals: No mass. Kidneys: 5 mm right lower pole calyceal calculus and 2 mm left lower pole calyceal calculus. No ureterolithiasis or hydronephrosis. Several bilateral renal cysts and additional subcentimeter hypoattenuating lesions, too small to characterize but likely benign. GI tract: No dilation or wall thickening. Normal appendix. Mild scattered colonic diverticulosis without diverticulitis. Lymph nodes: No abdominal or pelvic lymphadenopathy. Mesentery/Peritoneum: No ascites or mass. Retroperitoneum: No mass. Vasculature: The celiac axis and SMA are patent. The portal vein and branches, splenic vein, SMV, and hepatic veins are patent. No abdominal aortic or iliac artery aneurysm. Pelvis: No mass, ascites or fluid collection. Bones/Soft Tissues: Ventral periumbilical herniorrhaphy with mesh without recurrent hernia. No suspicious osseous lesion. Lower thorax: Subsegmental atelectasis/scarring bilateral lower lobes and lingula. Faith Doctor (topogram) images: No additional findings. IMPRESSION: No acute process in the abdomen or pelvis. Nonobstructing bilateral nephrolithiasis. [employer] Consultant Supervisor: PSCNguyễn Transcribe Date/Time: Nov 14 2020 3:26P Dictated by : GOSIA TELLO DO This examination was interpreted and the report reviewed and electronically signed by: GOSIA TELLO DO on Nov 14 2020 3:41PM EST [id number] Normal [facility] Comp Metabolic Panelon 11-14 Albumin [Mass/Vol] 4.2 g/dL Normal 3.9-4.9 [facility] Comment on above: Performed By: #### C BCDIF, LIPA, CMP ####[facility] [id number] [place] [address] ALP [Catalytic activity/Vol] 88 U/L Normal 38-113 [facility] Comment on above: Performed By: #### C BCDIF, LIPA, CMP ####[facility] [address] [place] [address] ALT [Catalytic activity/Vol] 13 U/L Normal 10-54 [facility] Comment on above: Performed By: #### C BCDIF, LIPA, CMP ####[facility] [address] Anion gap [Moles/Vol] 10 mmol/L Normal 9-18 [facility] Comment on above: Performed By: #### C BCDIF, LIPA, CMP ####[facility] [address] [place], [place] [phone] AST [Catalytic activity/Vol] 23 U/L Normal 14-40 [facility] Comment on above: Performed By: #### C BCDIF, LIPA, CMP ####[facility] [address] [place] [address] Bilirubin [Mass/Vol] 0.2 mg/dL Normal 0.2-1.3 [facility] Comment on above: Performed By: #### PATI CROWDER CMP ####[facility] [address] [place] [address] Calcium [Mass/Vol] 9.1 mg/dL Normal 8.5-10.2 [facility] Comment on above: Performed By: #### C PATI FERNANDES, CMP ####[facility] [address] [place] [address] Chloride [Moles/Vol] 104 mmol/L Normal 97-105 [facility] Comment on above: Performed By: #### C PATI FERNANDES CMP ####[facility] [address] [place], [place] [address] CO2 [Moles/Vol] 23 mmol/L Normal 22-30 [facility] Comment on above: Performed By: #### PATI CROWDER, BRANDON ####[facility] [address] [place] [address] Creatinine [Mass/Vol] 0.92 mg/dL Normal 0.73-1.22 [facility] Comment on above: Performed By: #### PATI CROWDER CMP ####[facility] [address] [place] [address] eGFR- Amer. >60 Normal [facility] Comment on above: Performed By: #### PATI CROWDER CMP ####[facility] [address] [place] [address] eGFR-All Other Races >60 Normal [facility] Comment on above: Result Comment: eGFR (Estimated GFR) Units of measure: mL/min/1.73 meters squared eGFR is derived from the reexpressed MDRD Study equation using the following parameters: serum creatinine, age, gender and race. The creatinine assay has been calibrated to be traceable to IDMS. An eGFR <60 mL/min/1.73m2 for >3 months is consistent with chronic kidney disease. Refer to KDOQI guidelines for clinical interpretation. In patients with unstable renal function, e.g. those with acute kidney injury, the eGFR may not accurately reflect actual GFR. Performed By: #### C PATI FERNANDES, CMP ####[facility] [address] [place] [address] Glucose [Mass/Vol] 104 mg/dL High 74-99 [facility] Comment on above: Result Comment: The [place] Diabetes Association (ADA) provides guidance for cutoff values for fasting glucose and random glucose. The ADA defines fasting as no caloric intake for at least 8 hours. Fasting plasma glucose results between 100 to 125 mg/dL indicate increased risk for diabetes (prediabetes). Fasting plasma glucose results greater than or equal to 126 mg/dL meet the criteria for diagnosis of diabetes. In the absence of unequivocal hyperglycemia, results should be confirmed by repeat testing. In a patient with classic symptoms of hyperglycemia or hyperglycemic crisis, random plasma glucose results greater than or equal to 200 mg/dL meet the criteria for diagnosis of diabetes. Reference: Standards of Medical Care in Diabetes 2016, [place] [employer] Association. Diabetes Care. 2016.39(Suppl 1). Performed By: #### C JACQUELINE FERNANDESA, CMP ####[facility] [id number] [place] [address] Potassium [Moles/Vol] 3.7 mmol/L Normal 3.7-5.1 [facility] Comment on above: Performed By: #### C JACQUELINE FERNANDESA, CMP ####[place] [address] Protein [Mass/Vol] 6.8 g/dL Normal 6.3-8.0 [facility] Comment on above: Performed By: #### C BCJOSE LIPA, CMP ####[facility] [address] [place] [address] Sodium [Moles/Vol] 137 mmol/L Normal 136-144 [facility] Comment on above: Performed By: #### C BCJACQUELINE GARCIAA, CMP ####[facility] [address] [place] [address] Urea nitrogen [Mass/Vol] 13 mg/dL Normal 9-24 [facility] Comment on above: Performed By: #### C BCMENDYF LIPA, CMP ####[facility] [address] [place] [address] ED NOTEon 11-14-2020 ED NOTE HNO ID: [id number] Author: Dominguez Wright RN Service: ? Author Type: Registered Nurse Type: ED Notes Filed: 11/14/2020 4:42 PM Note Text: Pt was discharged home and will follow up with his GI dr and his family medical dr is bedside with the discharge Pt is ambulatory with discharge [facility] ED NOTE HNO ID: [id number] Author: Dominguez Wright RN Service: ? Author Type: Registered Nurse Type: ED Notes Filed: 11/14/2020 3:10 PM Note Text: Pt to ct scan per wheelchair tech Zachary is bedside [facility] ED NOTE HNO ID: [id number] Author: Dominguez Wright RN Service: ? Author Type: Registered Nurse Type: ED Notes Filed: 11/14/2020 1:44 PM Note Text: Pt ambulatory to the bathroom [facility] ED NOTE HNO ID: [id number] Author: Dominguez Wright RN Service: ? Author Type: Registered Nurse Type: ED Notes Filed: 11/14/2020 1:40 PM Note Text: Pt was ambulatory with placement in the er [facility] ED NOTE HNO ID: [id number] Author: Hermelinda Vera RN Service: ? Author Type: Registered Nurse Type: ED Notes Filed: 11/14/2020 1:35 PM Note Text: Pt to ED with lower abd pain that radiates more to the RLQ and diarrhea for the last there days. Reports stool is intermittently black. Denies nausea or vomiting. Also reports pressure when urinating. [facility] ED PROV NOTEon 11-14-2020 ED PROV NOTE HNO ID: [id number] Author: Mario Penaloza PA-C Service: ? Author Type: Physician Rn Clinical Coordinator Type: ED Provider Notes Filed: 11/14/2020 4:29 PM Note Text: ED Provider Note Patient Name: Reji Victor SERVICE DATE: 11/14/20 History Patient presents with: Abdominal Pain Diarrhea 45-year-old male with a past medical history of GERD, hypertension, hiatal hernia, kidney stones, presents to the ED today with a chief complaint of abdominal pain, diarrhea. Patient states that he has been having abdominal pain for the last 3 days along with diarrhea. He had 2 episodes of diarrhea today. Denies any fevers, urinary symptoms, blood in the urine or stool. Denies any chest pain or shortness of breath. Patient had a hernia repair but no other abdominal surgeries. PAST MEDICAL HISTORY Diagnosis Date - Asthma - Colon polyps GI in [place] - COPD (chronic obstructive pulmonary disease) (HCC) - FHx: colon cancer Mother - GERD (gastroesophageal reflux disease) - Hiatal hernia - HTN (hypertension) - Incisional hernia 04/14/2018 Added automatically from request for surgery [id number] - Kidney stone - Lower abdominal pain 06/11/2017 - Microhematuria 06/11/2017 - Mitral valve prolapse - Multiple thyroid nodules - Obesity (BMI 30.0-34.9) - Osteoarthritis right knee - PTSD (post-traumatic stress disorder) - Spinal stenosis - Tobacco use Quit 11/2017 - Umbilical hernia 04/14/2018 Added automatically from request for surgery [id number] PAST SURGICAL HISTORY Procedure Laterality Date - CAPSULE ENDOSCOPY SMALL BOWEL 11/25/2019 Delayed gastric transit. Rapid small bowel transit. Otherwise normal - CHOLECYSTECTOMY 2014 - COLONOSCOP W/ OR W/O BRSH SPEC 08/15/2019 normal, repeat in 5 years due to family history - COLONOSCOPY 06/2017 Normal - COLONOSCOPY 2016 polyps - COLONOSCOPY 08/25/2018 normal, repeat in [address] Quintanilla - CYSTOSCOPY,+URETEROSCOPY - EGD 2016 Small hiatal hernia - EGD 01/2018 - EGD 08/25/2018 gastritis, GERD, hiatal hernia - EGD 08/15/2019 Duodenitis, gastritis. Neg. - H. Pylori. - EYE SURGERY HX 1990s - KNEE SCOPE,DIAGNOSTIC Right 2000 Arthroscopy, knee - LEG SURGERY HX Right 1999 ORIF Tib-fib - PAST SURGICAL HISTORY OF Right 2000 Hardware removal right leg - PAST SURGICAL HISTORY OF 12/2019 Back injections - REPAIR INCISIONAL HERNIA,REDUCIBLE 04/28/2018 Hernia repair, incisional - SIGMOIDOSCOPY 11/03/2019 poor anal sphincter tone FAMILY HISTORY Problem Relation Age of Onset - Colon Cancer Mother early 50s - Diabetes Mother - Heart Mother - Hypertension Mother - Diabetes Father - Heart Father [place] at age 63 - Hypertension Father - Colon Cancer Father - No Known Problems Sister Social History Tobacco Use - Smoking status: Current Every Day Smoker Packs/day: 1.50 Years: 20.00 Pack years: 30.00 Types: Cigarettes - Smokeless tobacco: Current User - Tobacco comment: Quit smoking in 07/2017, started again end of 08/2017, quit again beginning of 11/2017 Vaping Use - Vaping Use: Never used Substance and Sexual Activity - Alcohol use: Not Currently Comment: rarely - Drug use: Never - Sexual activity: Not on file ALLERGIES Allergen Reactions - Adhesive Tape-Silic* Rash - Hydrocodone-Acetami* GI Upset Review of Systems Constitutional: Negative for chills and fever. HENT: Negative for congestion, drooling, ear pain, mouth sores, sinus pressure, sore throat, tinnitus and trouble swallowing. Eyes: Negative for photophobia and visual disturbance. Respiratory: Negative for cough, chest tightness, shortness of breath and wheezing. Cardiovascular: Negative for chest pain and palpitations. Gastrointestinal: Positive for abdominal pain and diarrhea. Negative for abdominal distention, anal bleeding, constipation, nausea and vomiting. Genitourinary: Negative for dysuria, flank pain and hematuria. Musculoskeletal: Negative for arthralgias, gait problem, neck pain and neck stiffness. Skin: Negative for color change. Neurological: Negative for dizziness, seizures and numbness. Psychiatric/Behavioral: Negative for agitation and confusion. The patient is not nervous/anxious. Physical Exam BP 170/78 Pulse 85 Temp (Src) 96.9 (Temporal) Resp 18 Wt 210 lb (95.3kg) SpO2 96% O2 Therapy: Room Air Physical Exam Constitutional: Appearance: He is well-developed. HENT: Head: Normocephalic and atraumatic. No raccoon eyes or Lee's sign. Right Ear: Hearing normal. Left Ear: Hearing normal. Nose: Right Sinus: No maxillary sinus tenderness or frontal sinus tenderness. Left Sinus: No maxillary sinus tenderness or frontal sinus tenderness. Eyes: Conjunctiva/sclera: Conjunctivae normal. Cardiovascular: Rate and Rhythm: Normal rate. Pulmonary: Effort: Pulmonary effort is normal. Abdominal: Palpations: Abdomen is soft. Tenderness: There is ab (more content not included)... Normal [facility] Lipaseon 11-14-2020 Lipase [Catalytic activity/Vol] 37 U/L Normal 16-61 [facility] Comment on above: Performed By: #### C BCDIF, LIPA, CMP ####[facility] [address] [place], [place] [phone] Urinalysison 11-14-2020 Bilirubin, Urine Negative Normal Negative [facility] Comment on above: Performed By: #### U AMIC, UA ####[facility] [id number] [place] [address] Clarity (U) Clear Normal Clear [facility] Comment on above: Performed By: #### U AMIC, UA ####[facility] [address] [place] [address] Color (U) Yellow Normal Yellow [facility] Comment on above: Performed By: #### U AMIC, UA ####[facility] [address] [place] [address] Glucose Ql (U) Negative Normal Negative [facility] Comment on above: Performed By: #### U AMIC, UA ####[facility] [address] [place] [address] Hemoglobin/Blood,Ur 2+ Critically abnormal Negative [facility] Comment on above: Performed By: #### U AMIC, UA ####[facility] [address] [place] [address] Ketones Ql (U) Negative Normal Negative [facility] Comment on above: Performed By: #### U AMIC, UA ####[facility] [address] [place] [address] Leukest Negative Normal Negative [facility] Comment on above: Performed By: #### U AMIC, UA ####[facility] [address] [place] [address] Nitrite Ql (U) Negative Normal Negative [facility] Comment on above: Performed By: #### U AMIC, UA ####[facility] [address] [place] [address] pH (U) 6.0 [pH] Normal 5.0-8.0 [facility] Comment on above: Performed By: #### U AMIC, UA ####[facility] [address] [place] [address] Protein, Urine Negative Normal [facility] Comment on above: Performed By: #### U AMIC, UA ####[facility] [id number] [place] [address] Specific [place], Ur 1.020 Normal 1.005-1.030 [facility] Comment on above: Performed By: #### U AMIC, UA ####[facility] [address] [place] [address] Urobilinogen Qn (U) 0.2 {Noman'U}/dL Normal 0.2-1.0 [facility] Comment on above: Performed By: #### U AMIC, UA ####[facility] [address]jor[address] [place] [address] Urine Microscopic (FOR LAB U SE ONLY)on 11-14-2020 Bacteria Moderate Critically abnormal 0 [facility] Comment on above: Performed By: #### U AMIC, UA ####[facility] [address]ux[address]mg[address] [place] [address] Cast SEE COMMENT Normal 0 [facility] Comment on above: Result Comment: 0 Performed By: #### U AMIC, UA ####[facility] Vwekbpfnoc[address] [place] [address] RBC 0-3 Normal 0-3 [facility] Comment on above: Performed By: #### U AMIC, UA ####[facility] Xnfnlofolu8[address] [place] [address] WBC 0-5 Normal 0-5 [facility] Comment on above: Performed By: #### U AMIC, UA ####[facility] Npwmetwthj[address] [place] [address] ED NOTEon 03-01-2020 ED NOTE HNO ID: [id number] Author: Elsa GibsonRn) BANDAR De Los Santos Service: ? Author Type: Registered Nurse Type: ED Notes Filed: 03/01/2020 3:54 PM Note Text: Pt presents with c/o abd pain and black loose stools x1 month, has been evaluated by PCP for same complaints. Pt reports 3 episodes of dizziness today, which is new. Normal [facility] CBC and Differentialon 02-12 Abs Baso <0.03 Normal <0.11 [facility] Comment on above: Performed By: #### C BCDIF, LIPA, CMP ####[facility] [address] [place] [address] Abs [place] 0.44 k/uL Normal <0.87 [facility] Comment on above: Performed By: #### C BCDIF, LIPA, CMP ####[place] [address] Abs Neut 5.03 k/uL Normal 1.45-7.50 [facility] Comment on above: Performed By: #### C BCDIF, LIPA, CMP ####[place] [address] Absolute nRBC <0.01 Normal <0.01 [facility] Comment on above: Performed By: #### C BCDIF, LIPA, CMP ####[place] [address] Basophils/100 WBC (Bld) 0.2 % Normal [facility] Comment on above: Performed By: #### C BCDIF, LIPA, CMP ####[place] [address] DTYPE Auto Diff Normal [facility] Comment on above: Performed By: #### C BCDIF, LIPA, CMP ####[place] [address] Eosinophils (Bld) [#/Vol] 0.17 10*3/uL Normal <0.46 [facility] Comment on above: Performed By: #### C BCDIF, LIPA, CMP ####[place] [address] Eosinophils/100 WBC (Bld) 2.0 % Normal [facility] Comment on above: Performed By: #### C BCDIF, LIPA, CMP ####[place] [address] Erythrocyte distribution width (RBC) [Ratio] 13.2 % Normal 11.5-15.0 [facility] Comment on above: Performed By: #### C BCDIF, LIPA, CMP ####[place] [address] Hematocrit (Bld) [Volume fraction] 42.7 % Normal 39.0-51.0 [facility] Comment on above: Performed By: #### C BCDIF, LIPA, CMP ####[place] [address] Hemoglobin (Bld) [Mass/Vol] 14.0 g/dL Normal 13.0-17.0 [facility] Comment on above: Performed By: #### C BCDIF LIPA, CMP ####[facility] [id number] [place] [address] Lymphocytes (Bld) [#/Vol] 2.93 10*3/uL Normal 1.00-4.00 [facility] Comment on above: Performed By: #### C BCDIF, LIPA, CMP ####[facility] [id number] [place] [address] Lymphocytes/100 WBC (Bld) 34.0 % Normal [facility] Comment on above: Performed By: #### C BCDIF LIPA, CMP ####[place] [address] MCH 30.0 pG Normal 26.0-34.0 [facility] Comment on above: Performed By: #### C BCMENDYF, LIPA, CMP ####[place] [address] MCHC (RBC) [Mass/Vol] 32.8 g/dL Normal 30.5-36.0 [facility] Comment on above: Performed By: #### C BCDIF, LIPA, CMP ####[place] [address] MCV (RBC) [Entitic vol] 91.4 fL Normal 80.0-100.0 [facility] Comment on above: Performed By: #### C BCDIF, LIPA, CMP ####[place] [address] Monocytes/100 WBC (Bld) 5.1 % Normal [facility] Comment on above: Performed By: #### C BCDIF, LIPA, CMP ####[place] [address] Neutrophils/100 WBC (Bld) 58.7 % Normal [facility] Comment on above: Performed By: #### C BCDIF, LIPA, CMP ####[place] [address] NRBCs 0.0 /100 WBC Normal 0 [facility] Comment on above: Performed By: #### C BCDIF, LIPA, CMP ####[facility] [id number] [place] [address] Platelet mean volume (Bld) [Entitic vol] 10.3 fL Normal 9.0-12.7 [facility] Comment on above: Performed By: #### C BCDIF, LIPA, CMP ####[facility] [address] [place] [address] Platelets (Bld) [#/Vol] 198 10*3/uL Normal 150-400 [facility] Comment on above: Performed By: #### C BCDIF, LIPA, CMP ####[facility] [address] [place] [address] RBC (Bld) [#/Vol] 4.67 10*6/uL Normal 4.20-6.00 [facility] Comment on above: Performed By: #### C BCDIF, LIPA, CMP ####[facility] [address] [place] [address] WBC (Bld) [#/Vol] 8.61 10*3/uL Normal 3.70-11.00 [facility] Comment on above: Performed By: #### C BCDIF, LIPA, CMP ####[place] [address] Comp Metabolic Panelon 02-12 Albumin [Mass/Vol] 4.3 g/dL Normal 3.9-4.9 [facility] Comment on above: Performed By: #### C BCDIF, LIPA, CMP ####[facility] [id number] [place] [address] ALP [Catalytic activity/Vol] 85 U/L Normal 38-113 [facility] Comment on above: Performed By: #### C BCDIF, LIPA, CMP ####[place] [address] ALT [Catalytic activity/Vol] 10 U/L Normal 10-54 [facility] Comment on above: Performed By: #### C BCDIF, LIPA, CMP ####[facility] [id number] [place] [address] Anion gap [Moles/Vol] 13 mmol/L Normal 9-18 [facility] Comment on above: Performed By: #### C BCDIF, LIPA, CMP ####[facility] [address] [place] [address] AST [Catalytic activity/Vol] 20 U/L Normal 14-40 [facility] Comment on above: Performed By: #### C BCDIF, LIPA, CMP ####[facility] [address] [place] [address] Bilirubin [Mass/Vol] 0.4 mg/dL Normal 0.2-1.3 [facility] Comment on above: Performed By: #### C BCDIF, LIPA, CMP ####[facility] [address] [place] [address] Calcium [Mass/Vol] 9.8 mg/dL Normal 8.5-10.2 [facility] Comment on above: Performed By: #### C BCDIF, LIPA, CMP ####[facility] [address] [place] [address] Chloride [Moles/Vol] 100 mmol/L Normal 97-105 [facility] Comment on above: Performed By: #### C BCDIF, LIPA, CMP ####[facility] [address] [place] [address] CO2 [Moles/Vol] 23 mmol/L Normal 22-30 [facility] Comment on above: Performed By: #### C BCDIF, LIPA, CMP ####[facility] [address] [place] [address] Creatinine [Mass/Vol] 1.06 mg/dL Normal 0.73-1.22 [facility] Comment on above: Performed By: #### C BCDIF, LIPA, CMP ####[facility] [address] [place] [address] eGFR- Amer. >60 Normal [facility] Comment on above: Performed By: #### C BCDIF, LIPA, CMP ####[facility] [address] [place] [address] eGFR-All Other Races >60 Normal [facility] Comment on above: Result Comment: eGFR (Estimated GFR) Units of measure: mL/min/1.73 meters squared eGFR is derived from the reexpressed MDRD Study equation using the following parameters: serum creatinine, age, gender and race. The creatinine assay has been calibrated to be traceable to IDMS. An eGFR <60 mL/min/1.73m2 for >3 months is consistent with chronic kidney disease. Refer to KDOQI guidelines for clinical interpretation. In patients with unstable renal function, e.g. those with acute kidney injury, the eGFR may not accurately reflect actual GFR. Performed By: #### C BCMENDYFJACQUELINEA, CMP ####[facility] [phone] Glucose [Mass/Vol] 89 mg/dL Normal 74-99 [facility] Comment on above: Result Comment: The [place] Diabetes Association (ADA) provides guidance for cutoff values for fasting glucose and random glucose. The ADA defines fasting as no caloric intake for at least 8 hours. Fasting plasma glucose results between 100 to 125 mg/dL indicate increased risk for diabetes (prediabetes). Fasting plasma glucose results greater than or equal to 126 mg/dL meet the criteria for diagnosis of diabetes. In the absence of unequivocal hyperglycemia, results should be confirmed by repeat testing. In a patient with classic symptoms of hyperglycemia or hyperglycemic crisis, random plasma glucose results greater than or equal to 200 mg/dL meet the criteria for diagnosis of diabetes. Reference: Standards of Medical Care in Diabetes 2016, [place] [employer]. Diabetes Care. 2016.39(Suppl 1). Performed By: #### C BCMENDYF LIPA, CMP ####[facility] [phone] Potassium [Moles/Vol] 4.0 mmol/L Normal 3.7-5.1 [facility] Comment on above: Performed By: #### C BCDIF LIPA, CMP ####[facility] [address] [place] [phone] Protein [Mass/Vol] 7.0 g/dL Normal 6.3-8.0 [facility] Comment on above: Performed By: #### C BCDIF LIPA, CMP ####[facility] [address] [place] [phone] Sodium [Moles/Vol] 136 mmol/L Normal 136-144 [facility] Comment on above: Performed By: #### C BCDIF LIPA, CMP ####[facility] [address] Urea nitrogen [Mass/Vol] 10 mg/dL Normal 9-24 [facility] Comment on above: Performed By: #### C BCDIF, LIPA, CMP ####[facility] [address]62 [address] Coronavirus 2019on 0 SARS-CoV-2 (COVID-19) RNA JUANITA+probe Ql (Unsp spec) Nasopharyngeal Swab Normal [facility] Comment on above: Performed By: #### C OVID ####[facility] [address] [phone] SARS-CoV-2 (COVID-19) RNA JUANITA+probe Ql (Unsp spec) Negative Normal Negative for COVID19 (SARS CoV2) by PCR. [facility] Comment on above: Result Comment: This test was developed and its performance characteristics determined by [facility] [place]. This test has been authorized by FDA under an Emergency Use Authorization (EUA). This test has been validated in accordance with the FDA's Guidance Document Policy for Diagnostics Testing in Laboratories Certified to Perform High Complexity Testing under CLIA prior to Emergency use Authorization for Coronavirus Disease 2019 during the Public Health Emergency issued on August 27, 2019. Performed By: #### C OVID ####[facility] [address] [phone] ED NOTEon 02-13-2020 ED NOTE HNO ID: [id number] Author: Patti (Rn) BANDAR Ansari Service: ? Author Type: Registered Nurse Type: ED Notes Filed: 02/13/2020 4:16 PM Note Text: Discharged pt. with diagnosis of hernia. Discharge and follow up instructions given. Pt. verbalized understanding of discharge instructions. Pt. has no further questions and/or concerns at this time. Heplock d/c'd. Pt. ambulates with steady gait. Rx e-scripted to pt preferred pharmacy. [facility] ED NOTE HNO ID: [id number] Author: Meghana (Rn) BANDAR Turner Service: Nursing Author Type: Registered Nurse Type: ED Notes Filed: 02/13/2020 3:09 PM Note Text: Pt presents to ED with c/o lower abdominal pain that's been ongoing for one week. Pt was seen at [place] ER on Thursday for same complaint and had CT and bloodwork done and discharged home. He called his MD today to schedule follow-up and they recommend he come back to ER because he's still in pain. [facility] ED PROV NOTEon 02-13-2020 ED PROV NOTE HNO ID: [id number] Author: Enrico Rg Service: Emergency Medicine Author Type: Physician Type: ED Provider Notes Filed: 02/13/2020 6:17 PM Note Text: ED Provider Note Patient Name: Reji Victor SERVICE DATE: 02/13/20 History Patient presents with: Abdominal Pain: lower History is obtained from the patient, his at the bedside as well as review of his computerized medical record and outside medical records from [facility] ED obtained through care everywhere History of present illness: A 44-year-old male presents to the emergency department complaining of having lower abdominal pain, loose stools and stringy stools for one and a half week. He states that he bent over and cough to week and a half ago and noticed a bulge in his midline of his lower abdomen, midway between the umbilicus and base of his penis. He was seen at [facility] ER on Thursday for this, was noted not to have any type of incarcerated hernia had a negative CAT scan negative blood work as well. He was instructed to follow with his primary care doctor in 3-5 days, he was additionally prescribed Bentyl which she's been taking with no relief. He contacted his primary care doctor's nurse practitioner who talked with the physician and they referred him back in to the ED as he is having continued pain and continued loose stools. He denies any worsening of the pain, the bulge is only at times when he coughs hard, it is not currently bulging out he is still eating and drinking his last bowel movement was this morning but somewhat loose and he denies nausea or vomiting. He denies being tested for Covid virus he denies any loss of sense of taste or smell denies cough or sore throat or shortness of breath he's had no fever or chills. He is still passing gas normally PAST MEDICAL HISTORY Diagnosis Date - Colon polyps GI in [place] - COPD (chronic obstructive pulmonary disease) (HCC) - FHx: colon cancer Mother - GERD (gastroesophageal reflux disease) - Hiatal hernia - HTN (hypertension) - Incisional hernia 04/14/2018 Added automatically from request for surgery [id number] - Kidney stone - Lower abdominal pain 06/11/2017 - Microhematuria 06/11/2017 - Mitral valve prolapse - Multiple thyroid nodules - Obesity (BMI 30.0-34.9) - Osteoarthritis right knee - Spinal stenosis - Tobacco use Quit 11/2017 - Umbilical hernia 04/14/2018 Added automatically from request for surgery [id number] PAST SURGICAL HISTORY Procedure Laterality Date - CAPSULE ENDOSCOPY SMALL BOWEL 11/25/2019 Delayed gastric transit. Rapid small bowel transit. Otherwise normal - CHOLECYSTECTOMY 2014 - COLONOSCOP W/ OR W/O BRSH SPEC 08/15/2019 normal, repeat in 5 years due to family history - COLONOSCOPY 06/2017 Normal - COLONOSCOPY 2016 polyps - COLONOSCOPY 08/25/2018 normal, repeat in [address] Quintanilla - CYSTOSCOPY,+URETEROSCOPY - EGD 2016 Small hiatal hernia - EGD 01/2018 - EGD 08/25/2018 gastritis, GERD, hiatal hernia - EGD 08/15/2019 Duodenitis, gastritis. Neg. - H. Pylori. - EYE SURGERY HX 1990s - KNEE SCOPE,DIAGNOSTIC Right 2000 Arthroscopy, knee - LEG SURGERY HX Right 1999 ORIF Tib-fib - PAST SURGICAL HISTORY OF Right 2000 Hardware removal right leg - REPAIR INCISIONAL HERNIA,REDUCIBLE 04/28/2018 Hernia repair, incisional - SIGMOIDOSCOPY 11/03/2019 poor anal sphincter tone FAMILY HISTORY Problem Relation Age of Onset - Colon Cancer Mother early 50s - Diabetes Mother - Heart Mother - Hypertension Mother - Diabetes Father - Heart Father [place] at age 63 - Hypertension Father - Colon Cancer Father - No Known Problems Sister Social History Tobacco Use - Smoking status: Current Every Day Smoker Packs/day: 1.50 Years: 20.00 Pack years: 30.00 Types: Cigarettes - Smokeless tobacco: Current User - Tobacco comment: Quit smoking in 07/2017, started again end of 08/2017, quit again beginning of 11/2017 Substance and Sexual Activity - Alcohol use: Not Currently Frequency: Monthly or less Drinks per session: Patient refused Comment: rarely - Drug use: Never - Sexual activity: Not on file ALLERGIES Allergen Reactions - Adhesive Tape-Silic* Rash - Hydrocodone-Acetami* GI Upset Review of Systems Constitutional: Negative for activity change, appetite change, chills, diaphoresis and fever. HENT: Negative for congestion. Eyes: Negative for visual disturbance. Respiratory: Negative for shortness of breath. Cardiovascular: Negative for chest pain and leg swelling. Gastrointestinal: Positive for abdominal pain. Endocrine: Negative for polyuria. Genitourinary: Negative for dysuria and frequency. Musculoskeletal: Negative for myalgias and neck pain. Skin: Negative for color change. Allergic/Immunologic: Negative for immunocompromised state. Neurological: Negative for dizziness and weakness. Hematological: Does n (more content not included)... Normal [facility] Lipaseon 02-13-2020 Lipase [Catalytic activity/Vol] 44 U/L Normal [facility] Comment on above: Performed By: #### C BCDIF, LIPA, CMP ####[facility] [address] [place] [address] Urinalysison 02-13-2020 Bilirubin, Urine Negative Normal Negative [facility] Comment on above: Performed By: #### U AMIC, UA ####[facility] [address] [place] [address] Clarity (U) Clear Normal Clear [facility] Comment on above: Performed By: #### U AMIC, UA ####[facility] [address]fp[address]wn[address]26[address] [place] [address] Color (U) Yellow Normal Yellow [facility] Comment on above: Performed By: #### U AMIC, UA ####[facility] Cf[address]yrv8962 [place] [address] Glucose Ql (U) Negative Normal Negative [facility] Comment on above: Performed By: #### U AMIC, UA ####[facility] X[address]ck[address]afhs4075 [place] [address] Hemoglobin/Blood,Ur Trace Critically abnormal Negative [facility] Comment on above: Performed By: #### U AMIC, UA ####[facility] Penmvnwmmn12[address] [place] [address] Ketones Ql (U) Negative Normal Negative [facility] Comment on above: Performed By: #### U AMIC, UA ####[facility] [address] [place] [address] Leukest Negative Normal Negative [facility] Comment on above: Performed By: #### U AMIC, UA ####[facility] [address] [place] [address] Nitrite Ql (U) Negative Normal Negative [facility] Comment on above: Performed By: #### U AMIC, UA ####[facility] [address] [place] [address] pH (U) 6.5 [pH] Normal 5.0-8.0 [facility] Comment on above: Performed By: #### U AMIC, UA ####[facility] [address] [place] [address] Protein, Urine Negative Normal Negative [facility] Comment on above: Performed By: #### U AMIC, UA ####[facility] [address] [place] [address] Specific [place], Ur <=1.005 Normal 1.005-1.030 [facility] Comment on above: Performed By: #### U AMIC, UA ####[facility] [address] [place] [address] Urobilinogen Qn (U) 0.2 {Noman'U}/dL Normal 0.2-1.0 [facility] Comment on above: Performed By: #### U AMIC, UA ####[facility] [address] [place] [address] Urine Microscopic (FOR LAB U SE ONLY)on 02-13-2020 Bacteria Occasional Critically abnormal 0 [facility] Comment on above: Performed By: #### U AMIC, UA ####[facility] [address] [place] [address] Cast SEE COMMENT Normal 0 [facility] Comment on above: Result Comment: 0 Performed By: #### U AMIC, UA ####[facility] [address] [place] [address] RBC 0-3 Normal 0-3 [facility] Comment on above: Performed By: #### U AMIC, UA ####[facility] [address] [phone] WBC 0-5 Normal 0-5 [facility] Comment on above: Performed By: #### U [facility], UA ####[facility] [address]apo[address] [place] [phone] ED NOTEon 02-10-2020 ED NOTE HNO ID: [id number] Author: Patti (Rn) BANDAR Ansari Service: ? Author Type: Registered Nurse Type: ED Notes Filed: 02/10/2020 9:50 PM Note Text: Pt to ED c/o bending over last week and noting hernia pop out, pt states he pushed it back in but is having abd pain, nausea and diarrhea. Normal [facility] CNOVon 02-03-2020 CNOV Office Visit (AKURFL ) ----- REJI VICTOR ([id number]) 1975 M Date Time Provider Department 02/03/20 9:30 AM AUDRA MILNER During your visit today, we recorded the following information about you: Weight Height 102.5 kg 1.778 m Aurda Milner DO, MBA 02/03/2020 10:55 AM Signed CYSTOSCOPY PROCEDURE NOTE: Reji Victor is a 44 year old male who presents with hematuria micro for cystoscopy. Pt ID verified with patient: Yes Procedure verified with patient: Yes Procedure confirmed with physician and technician support association: Yes Sign In History and Physical Exam reviewed and is unchanged. . Informed Consent Discussed: Yes. Risks, benefits, alternatives and personnel discussed with patient who consents to proceed. Sign in Communication: Completed Time Out: Team Confirms the Correct Patient, Correct Procedure; Cystoscopy, Correct Site and Site Marking, Correct Position (if applicable). Affirmation of Time Out: Yes Sign Out: Sign Out Discussion: Completed Physician: Audra Milner DO, MBA A urinalysis was performed revealing no evidence of infection. The benefits, risks, alternatives of the cystoscopy procedure and personnel were discussed with the patient. The verbal consent was obtained and the patient agrees to proceed. Procedure: The patient was placed on the procedure table in the supine position and prepped and draped in the usual sterile fashion. 2% Lidocaine Jelly was placed per urethra as an anesthetic in the standard fashion. Once adequate local anesthesia was achieved, the tip of the flexible cystoscope was carefully placed into the urethra under direct visual guidance. The scope was negotiated through the pendulous urethra to the level of the bulbar urethra with no evidence of stricture. The verumontanum came into view and the scope was negotiated through the prostatic urethra which showed evidence of a patent prostatic urethra. The bladder was entered and careful prado endoscopy was carried out. The posterior, superior and lateral belle and dome of the bladder were all well visualized and the scope was retroflexed upon itself. The findings were consistent with no evidence of bladder mucosal pathology. At the conclusion of the procedure, the flexible cystoscope was removed atraumatically. The patient tolerated the procedure without complications. Patient was given standard post-procedure instructions, and was directed to complete the course of oral antibiotics and increase oral fluid intake as directed. ASSESSMENT/PLAN: Microhematuria. A CT urogram with bilateral nonobstructing stones. Negative urine cytology. Cystoscopy negative. Follow-up with Dr. Murphy when necessary. Audra Milner DO, MBA Referring Provider: MARKEL MURPHY) [[id number]] Allergies As of Date: 02/03/2020 Noted Allergy Reaction ADHESIVE TAPE-SILICONES 12/16/2018 2 - Rash HYDROCODONE-ACETAMINOPHEN 08/28/2015 8 - GI Upset Date Reviewed: 02/03/2020 Reviewed by: Audra Milner - Fully Assessed Reason for Visit: Hematuria [335] Primary Visit Diagnosis:Gross hematuria [R31.0] Other Visit Diagnosis:Nephrolithiasis [N20.0] Order(s):UA DIP, URINE (POC) [[id number]] Order #: [id number]. #:[id number] [id number] [] ciprofloxacin HCl 500 mg tab(s) (CIPRO)Disp: Rfl: Prescriptions as of 02/03/2020 Sig: GABAPENTIN 300 MG CAPSULE Take 1 capsule by mouth three* DICYCLOMINE 10 MG CAP (BENTYL* Take 1 capsule by mouth befor* TRAZODONE 150 MG TABLET Take 1 tablet by mouth daily * ALIGN 4 MG CAPSULE Take 1 capsule by mouth once * IV CONTRAST (RADIOLOGY PROCED* CT Urogram WO/W Inject, intra* Patient not taking: Reported on 01/12/2020 PANTOPRAZOLE 40 MG TABLET,DEL* Take 1 tablet by mouth once d* BUPROPION HCL SR 150 MG TABLE* Take 1 tablet by mouth twice * Patient not taking: Reported on 01/12/2020 ALBUTEROL SULFATE HFA 90 MCG/* Inhale 2 Puffs as instructed * BLOOD PRESSURE MONITOR KIT Electronic monitor and cuff. * COMPOUNDED PRESCRIPTION Take blood pressure daily in * Problem List As Of Date 02/03/2020 Noted Resolved Lower abdominal pain [R10.30] 06/11/2017 Microhematuria [R31.29] 06/11/2017 Colon polyps [K63.5] More... Tobacco use [Z72.0] More... Osteoarthritis [M19.90] More... Obesity (BMI 30.0-34.9) [E66.9] More... Esophageal dysphagia [R13.10] 12/29/2017 Incisional hernia [K43.2] 04/14/2018 08/05/2019 More... Umbilical hernia [K42.9] 04/14/2018 08/05/2019 More... Gastroesophageal reflux disease [K21.9] 04/26/2018 More... Elevated BP without diagnosis of hypertension [*07/29/2018 Spinal stenosis [M48.00] 10/21/2018 More... Chronic right-sided low back pain with right-si*10/22/2018 Prescriptions ordered this encounter Disp Refills Start End CIPROFLOXACIN 500 MG TABLET 02/03/2020 02/03/2020 Route: ORAL Encounter Status:Closed by AUDRA MILNER on 02/03/20 [facility] OPERATIVE NOon 01-26-2020 OPERATIVE NO HNO ID: [id number] Author: Armond Moreno Service: Pain Management Author Type: Physician Type: Operative Report Filed: 01/30/2020 4:13 PM Note Text: PATIENT NAME: Reji Victor SERVICE DATE: 01/26/2020 PROCEDURE NOTE PREOPERATIVE DIAGNOSIS(ES): Lumbar degenerative disc disease. Lumbar spondylosis. Lumbar facet arthropathy POSTOPERATIVE DIAGNOSIS(ES): Same OPERATION: Bilateral L5-S1 facet Lumbar Facet Medial Branch Nerve Blockunder fluoroscopy. ANESTHESIA: Versed 3 mg IV INDICATIONS: Reji Victor presents for facet joint injection. The pain is persistent. Reji Victor denies any new neurological or pain complaints. The patient has spondylosis at lower lumbar segments with predominant changes at L5-S1 levels. As discussed in the office and confirmed today, the plan is to proceed with lumbar facet joint injection. The risks and benefits of the procedure were discussed. Specifically, the risks of bleeding, infection, inadvertent dural puncture, spinal heaches, vasovagal reaction, epidural hematoma, partial or permanent nerve injury were covered. The potential side effects of medications used in procedures including increase in lumbar pain, headaches, facial redness or warmth (flushing), anxiety or mood swings, sleeplessness, fever, high blood sugar, brief reduction in immunity were discussed. The patient expressed understanding of potential risks and wishes to proceed with the procedure. OPERATIVE PROCEDURE: The patient was brought to the OR. The patient was positioned prone on the fluoroscopy table. Continuous hemodynamic monitoring was initiated including blood pressure, EKG, and pulse oximetry. IV sedation was administered incrementally to allow the patient to remain comfortable and conversant throughout the procedure. The area of the lumbar spine was prepped povidone-iodine three times and draped into a sterile field. Fluoroscopy was rotated to right oblique projection to identify the location of the L5-S1 medial branch nerves at the junctions of the superior articular process and the transverse processes of L5, and the sacral ala respectively. Skin anesthesia was achieved using 10 cc of marcaine 0.25% over the injection sites. A 22 gauge, 3.5 spinal needle was slowly inserted at each level using AP, lateral and oblique fluoroscopic imaging. Negative aspiration for blood or CSF was confirmed. The fluoroscopy was then rotated to the contralateral side and the needle placement sites were identified. Same technique was used to place the needles on the contralateral side. There were total of 4 needle placements. A total of 4ml of a medication mixture of 5mg of Kenalog per 1ml of Marcaine 0.25% was injected. A total of 4 sites were injected in equal and divided doses. The needles were removed and bleeding was nil. A sterile dressing was applied. The patient tolerated the procedure well. The patient was taken to the recovery room in stable condition. EBL: nil Start time: 8:41 AM End time: 8:48 AM I was present the entire time and personally performed the procedure. SIGNATURE: Armond Moreno MD DATE: January 26, 2020 TIME: 8:50 AM [facility] PT EDon 01-26-2020 PT ED HNO ID: [id number] Author: Luly GibsonRn) BANDAR Huang Service: ? Author Type: Registered Nurse Type: Patient Education Filed: 01/26/2020 9:02 AM Note Text: POST OP LEARNING RESPONSE INSTRUCTION PROVIDED TO: Patient METHOD OF INSTRUCTION: Teach Back done Individual instruction Written instruction - handouts Verbal instruction PATIENT / FAMILY RESPONSE: Verbalizes understanding of: PHYSICAL RESTRICTIONS-Physical restrictions and recommendations after discharge from the hospital POST-PROCEDURE INSTRUCTIONS-Correct actions to take to reduce post procedure complications SYMPTOM MANAGEMENT-Correct actions to take to manage symptoms associated with his/her disease/illness VTE prevention measures but refuses to follow prevention plan/orders WOUND CARE-Correct procedure to perform wound care FOLLOW-UP PLAN: Patient instructed to call with any further issues Contact information given. SUPPLEMENTAL MATERIAL: None REFERRAL (RECOMMENDATION): None Electronically Signed By: Luly Huang RN In Department: [facility] PT ED HNO ID: [id number] Author: Jose Alejandro Fragoso RN Service: Nursing Author Type: Registered Nurse Type: Patient Education Filed: 01/26/2020 7:38 AM Note Text: PRE OP LEARNING ASSESSMENT PROCEDURE/SURGERY: PAIN MANAGEMENT: pain block READINESS TO LEARN COGNITIVE ABILITY: Alert and oriented MOTIVATION TO LEARN: Eager FAMILY SUPPORT: High - Very involved in pt care PATIENT LEARNS BEST BY: Individual Instruction Verbal Instruction FACTORS AFFECTING LEARNING: None PHYSICAL LIMITATIONS AFFECTING LEARNING: None Electronically Signed By: Jose Alejandro Fragoso RN In Department: [facility] XR FLUOROSCOPYon 01-26-2020 XR FLUOROSCOPY * * *Final Report* * * DATE OF EXAM: Jan 26 2020 8:51AM MDR [id number] - XR FLUOROSCOPY / PROCEDURE REASON: PAIN * * * * Physician Interpretation * * * * Study: Pain management. XR FLUOROSCOPY HISTORY: Indication: PAIN PAIN TECHNIQUE: Fluoroscopic Radiation Summary: Plane A, Air Kerma: 16.2 mGy Dose Area Product (DAP): 1836.8 mGy*cm^2 Fluoro time: 0:34 min:sec Images obtained: 6 Spot film images under fluoroscopic guidance. Images were stored in a permanent archive. Comparison: NONE. RESULT: Findings: Tips of the needles projecting over the lateral aspect of the L5 and S1 vertebra bilaterally.. See procedural note in Epic for further discussion. IMPRESSION: As discussed above Home Energy Consultant Supervisor: NEIDA Transcribe Date/Time: Jan 26 2020 8:58A Dictated by : BEATRIZ DURON DO This examination was interpreted and the report reviewed and electronically signed by: BEATRIZ DURON DO on Jan 26 2020 8:59AM EST [id number] [facility] HOSPon 01-16-2020 [facility] Patient:Latrell Victor MRN: Height:5' 10(1.778 m) Weight:226 lb 9.6 oz (102.785 kg) Outpatient Medications as of 01/26/20: gabapentin (NEURONTIN) 300 mg capsule dicyclomine (BENTYL) 10 mg capsule traZODone (DESYREL) 150 mg tablet Bifidobacterium Infantis (ALIGN) 4 mg cap iv contrast (will be provided with radiology test) pantoprazole DR (PROTONIX) 40 mg tablet buPROPion SR (WELLBUTRIN SR) 150 mg 12 hr tablet albuterol HFA (PROVENTIL HFA, VENTOLIN HFA) 90 mcg/actuation inhaler Blood Pressure Monitor kit COMPOUNDED PRESCRIPTION Admission/Clinic Administered Medications as of 01/26/20: NaCl 0.9% iv infusion Problem List: Lower abdominal pain [R10.30] Microhematuria [R31.29] Colon polyps [K63.5] Tobacco use [Z72.0] Osteoarthritis [M19.90] Obesity (BMI 30.0-34.9) [E66.9] Esophageal dysphagia [R13.10] Gastroesophageal reflux disease [K21.9] Elevated BP without diagnosis of hypertension [R03.0] Spinal stenosis [M48.00] Chronic right-sided low back pain with right-sided sciatica [M54.41, G89.29] Allergies: Adhesive Tape-Silicones Hydrocodone-Acetaminophen Date Verified: 01/26/20 Lab Values No results within the last 30 days for the following basenames: K,HCT Progress Notes ([facility]): Kim Lantigua MD 01/16/2020 1:11 PM Signed TELEPHONE FOLLOW-UP ENCOUNTER Reji Victor [id number] has requested a telemedicine follow-up visit. Reji Victor verbalized informed consent to proceed with the telemedicine follow-up visit. Reji Victor was informed that the details of this telephone visit would be recorded as part of their electronic medical record. Patient location at time of call: Home Callback number: [phone] Additional encounter participants and relationship: none No chief complaint on file. I had a telephone visit with Mr. Victor today for follow up of dysphagia. UPDATED HISTORY: He was seen for c/o- dysphagia and had EGD from outside facility with esophageal biopsy which was normal. He was scheduled for esophageal manometry but did not tolerate it. Current symptoms are: No abdominal pain. Appetite is excellent. Weight/Height: There were no vitals taken for this visit., which is stable. No eye, skin or joint manifestations of IBD. PAST MEDICAL HISTORY Diagnosis Date - Colon polyps GI in [place] - COPD (chronic obstructive pulmonary disease) (HCC) - FHx: colon cancer Mother - GERD (gastroesophageal reflux disease) - Hiatal hernia - HTN (hypertension) - Incisional hernia 04/14/2018 Added automatically from request for surgery [id number] - Kidney stone - Lower abdominal pain 06/11/2017 - Microhematuria 06/11/2017 - Mitral valve prolapse - Multiple thyroid nodules - Obesity (BMI 30.0-34.9) - Osteoarthritis right knee - Spinal stenosis - Tobacco use Quit 11/2017 - Umbilical hernia 04/14/2018 Added automatically from request for surgery [id number] PAST SURGICAL HISTORY Procedure Laterality Date - CAPSULE ENDOSCOPY SMALL BOWEL 11/25/2019 Delayed gastric transit. Rapid small bowel transit. Otherwise normal - CHOLECYSTECTOMY 2014 - COLONOSCOP W/ OR W/O BRSH SPEC 08/15/2019 normal, repeat in 5 years due to family history - COLONOSCOPY 06/2017 Normal - COLONOSCOPY 2016 polyps - COLONOSCOPY 08/25/2018 normal, repeat in [address] Quintanilla - CYSTOSCOPY,+URETEROSCOPY - EGD 2016 Small hiatal hernia - EGD 01/2018 - EGD 08/25/2018 gastritis, GERD, hiatal hernia - EGD 08/15/2019 Duodenitis, gastritis. Neg. - H. Pylori. - EYE SURGERY HX 1990s - KNEE SCOPE,DIAGNOSTIC Right 2000 Arthroscopy, knee - LEG SURGERY HX Right 1999 ORIF Tib-fib - PAST SURGICAL HISTORY OF Right 2000 Hardware removal right leg - REPAIR INCISIONAL HERNIA,REDUCIBLE 04/28/2018 Hernia repair, incisional - SIGMOIDOSCOPY 11/03/2019 poor anal sphincter tone FAMILY HISTORY Problem Relation Age of Onset - Colon Cancer Mother early 50s - Diabetes Mother - Heart Mother - Hypertension Mother - Diabetes Father - Heart Father [place] at age 63 - Hypertension Father - Colon Cancer Father - No Known Problems Sister Social History Tobacco Use - Smoking status: Current Every Day Smoker Packs/day: 1.50 Years: 20.00 Pack years: 30.00 Types: Cigarettes - Smokeless tobacco: Current User - Tobacco comment: Quit smoking in 07/2017, started again end of 08/2017, quit again beginning of 11/2017 Substance Use Topics - Alcohol use: Not Currently Frequency: Monthly or less Drinks per session: Patient refused Comment: rarely - Drug use: Never Current Outpatient Medications Medication Sig Dispense Refill - gabapentin (NEURONTIN) 300 mg capsule Take 1 capsule by mouth three times daily for 90 days. 90 capsule 2 - dicyclomine (BENTYL) 10 mg capsule Take 1 capsule by mouth before meals and at bedtime. 120 capsule 3 - traZODone (DESYREL) 150 mg tablet Take 1 tablet by mouth daily at bedtim (more content not included)... Normal [facility] CT 3D POST PROCESSINGon 11-28 CT 3D POST PROCESSING * * *Final Report* * * DATE OF EXAM: Dec 20 2019 10:02AM [facility] 0563 - CT 3D POST PROCESSING / PROCEDURE REASON: R31.0-Gross hematuria * * * * Physician Interpretation * * * * EXAMINATION: CT ABDOMEN AND PELVIS WITHOUT AND WITH IV CONTRAST, INCLUDING EXCRETORY PHASE IMAGING (CT UROGRAM) 3D RECONSTRUCTIONS CLINICAL HISTORY: Gross hematuria. TECHNIQUE: CT urogram protocol including unenhanced, renal parenchymal phase and excretory phase renal imaging was obtained following IV contrast. Normal saline was also administered IV. No oral contrast was given. 3D image post-processing was performed and archived at the request of the referring physician, on the CT scanner workstation without concurrent physician supervision. MQ: CTU_2 Contrast: IV: 150 ml of Omnipaque 300 IV Saline: 200 ml of 0.9% NACL Solution Oral Contrast: None CT Radiation dose: Integrated dose-length product (DLP) for this visit = 2665 mGy*cm. CT Dose Reduction Employed: mAs-kVp adjusted based on patient size-age COMPARISON: 12/08/2017 RESULT: Kidneys and urinary tract: Right: 5 mm lower pole calculus, unchanged. 15 mm interpolar cyst. Additional tiny, 5 mm less in size hypodensities, too small to characterize but likely benign. The opacified calices, renal pelvis and ureter are normal without dilation, filling defect, or stricture. Left: 2 mm lower pole calculus, not present previously. Multiple benign cysts including a hyperdense cyst, similar to the prior study. Additional subcentimeter hypodensities, too small to characterize but likely benign. The opacified calices, renal pelvis and ureter are normal without dilation, filling defect, or stricture. Bladder: No filling defect, calculus, focal or diffuse wall thickening. Abdomen and Pelvis: Liver: No mass. Biliary: No bile duct dilation. Gallbladder is absent. Spleen: No mass. No splenomegaly. Pancreas: No mass or duct dilation. Adrenals: No mass. GI tract: No dilation or wall thickening. Sigmoid diverticulosis. Appendix is unremarkable. Lymph nodes: No abdominal or pelvic lymphadenopathy. Mesentery/Peritoneum: No ascites or mass. Retroperitoneum: No mass. Vasculature: The celiac axis and SMA are patent. The portal vein and branches, splenic vein, SMV, and hepatic veins are patent. No abdominal aortic or iliac artery aneurysm. Pelvis: No mass, ascites or fluid collection. Bones and Soft Tissues: No significant finding. Lower thorax: Unremarkable. Faith Doctor (topogram) images: Unremarkable. IMPRESSION: Bilateral nonobstructing nephrolithiasis Bilateral benign-appearing cysts and subcentimeter hypodensities, likely benign. No definite solid renal mass. Home Energy Consultant Supervisor: PSCB Transcribe Date/Time: Dec 20 2019 10:04A Dictated by : KRISTEN CHEATHAM MD This examination was interpreted and the report reviewed and electronically signed by: KRISTEN CHEATHAM MD on Dec 20 2019 11:07AM EST [id number] Normal [facility] CT UROGRAM WO/W IVCONon - CT UROGRAM WO/W IVCON * * *Final Report* * * DATE OF EXAM: Dec 20 2019 8:21AM [facility] 0560 - CT UROGRAM WO/W IVCON / PROCEDURE REASON: R31.0-Gross hematuria * * * * Physician Interpretation * * * * EXAMINATION: CT ABDOMEN AND PELVIS WITHOUT AND WITH IV CONTRAST, INCLUDING EXCRETORY PHASE IMAGING (CT UROGRAM) 3D RECONSTRUCTIONS CLINICAL HISTORY: Gross hematuria. TECHNIQUE: CT urogram protocol including unenhanced, renal parenchymal phase and excretory phase renal imaging was obtained following IV contrast. Normal saline was also administered IV. No oral contrast was given. 3D image post-processing was performed and archived at the request of the referring physician, on the CT scanner workstation without concurrent physician supervision. MQ: CTU_2 Contrast: IV: 150 ml of Omnipaque 300 IV Saline: 200 ml of 0.9% NACL Solution Oral Contrast: None CT Radiation dose: Integrated dose-length product (DLP) for this visit = 2665 mGy*cm. CT Dose Reduction Employed: mAs-kVp adjusted based on patient size-age COMPARISON: 12/08/2017 RESULT: Kidneys and urinary tract: Right: 5 mm lower pole calculus, unchanged. 15 mm interpolar cyst. Additional tiny, 5 mm less in size hypodensities, too small to characterize but likely benign. The opacified calices, renal pelvis and ureter are normal without dilation, filling defect, or stricture. Left: 2 mm lower pole calculus, not present previously. Multiple benign cysts including a hyperdense cyst, similar to the prior study. Additional subcentimeter hypodensities, too small to characterize but likely benign. The opacified calices, renal pelvis and ureter are normal without dilation, filling defect, or stricture. Bladder: No filling defect, calculus, focal or diffuse wall thickening. Abdomen and Pelvis: Liver: No mass. Biliary: No bile duct dilation. Gallbladder is absent. Spleen: No mass. No splenomegaly. Pancreas: No mass or duct dilation. Adrenals: No mass. GI tract: No dilation or wall thickening. Sigmoid diverticulosis. Appendix is unremarkable. Lymph nodes: No abdominal or pelvic lymphadenopathy. Mesentery/Peritoneum: No ascites or mass. Retroperitoneum: No mass. Vasculature: The celiac axis and SMA are patent. The portal vein and branches, splenic vein, SMV, and hepatic veins are patent. No abdominal aortic or iliac artery aneurysm. Pelvis: No mass, ascites or fluid collection. Bones and Soft Tissues: No significant finding. Lower thorax: Unremarkable. Faith Doctor (topogram) images: Unremarkable. IMPRESSION: Bilateral nonobstructing nephrolithiasis Bilateral benign-appearing cysts and subcentimeter hypodensities, likely benign. No definite solid renal mass. Home Energy Consultant Supervisor: PSCB Transcribe Date/Time: Dec 20 2019 10:04A Dictated by : KRISTEN CHEATHAM MD This examination was interpreted and the report reviewed and electronically signed by: KRISTEN CHEATHAM MD on Dec 20 2019 11:07AM EST [id number] [facility] NURSING PROGon 11-18-2019 NURSING PROG HNO ID: [id number] Author: Simi GibsonRn) BANDAR Corbin Service: Nursing Author Type: Registered Nurse Type: Nursing Progress Note Filed: 11/18/2019 9:19 AM Note Text: The patient was brought into the procedure room and a time out was done. After confirmation of potential allergies, a topical analgesic was used to numb the RIGHT nares followed by the trans-nasal insertion of a High Resolution Manometry catheter. Patient began gagging and vomiting. Patient refused to continue with the procedure and asked RN to remove the probe. The catheter was removed. No heme noted when catheter removed. [facility] 11-15-2019 [facility] Telephone ([id number]) ----- REJI VICTOR ([id number]) 1975 M Date Time Provider Department 11/15/19 LOGAN CYR3 During your visit today, we recorded the following information about you: Marquez Odom RN 11/15/2019 10:40 AM Signed I called Rylan this morning and confirmed with him that he is scheduled for an esophageal manometry on 11/18/19. I verbally discussed the esophageal manometry and the prep instructions. All of patient's questions were answered. Patient is scheduled for Covid testing 11/15/19. Reji Victor has been scheduled for manometry Date: 11/18/19 Arrival Time: 0830 Surgery Time: 0900 Location: [facility] Endo No clearance required. Scheduled with surgery center: Yes Patient notified of date, time and location: Yes Form faxed to surgery center: Epic Placed on computer schedule: Yes Written on calendar: Yes Surgery information booklet sent/given: No Pre testing details: N/A Admission Type: outpatient Anesthesia: Local Marquez Odom RN Allergies As of Date: 11/15/2019 Noted Allergy Reaction ADHESIVE TAPE-SILICONES 12/16/2018 2 - Rash HYDROCODONE-ACETAMINOPHEN 08/28/2015 8 - GI Upset Date Reviewed: 11/03/2019 Reviewed by: Roopa Gomez RN - Fully Assessed Reason for Visit: Future Appointment [256] Cmt: manometry 11/18/19 at 0900 Prescriptions as of 11/15/2019 Sig: DICYCLOMINE 10 MG CAP (BENTYL* Take 1 capsule by mouth befor* TRAZODONE 150 MG TABLET Take 1 tablet by mouth daily * GABAPENTIN 300 MG CAPSULE Take 1 capsule by mouth three* ALIGN 4 MG CAPSULE Take 1 capsule by mouth once * POLYETHYLENE GLYCOL 3350 17 G* Take 17 g by mouth once daily. IV CONTRAST (RADIOLOGY PROCED* CT Urogram WO/W Inject, intra* SODIUM CHLORIDE 0.9 % INTRAVE* Inject 202 mL intravenously o* PANTOPRAZOLE 40 MG TABLET,DEL* Take 1 tablet by mouth once d* BUPROPION HCL SR 150 MG TABLE* Take 1 tablet by mouth twice * ALBUTEROL SULFATE HFA 90 MCG/* Inhale 2 Puffs as instructed * BLOOD PRESSURE MONITOR KIT Electronic monitor and cuff. * COMPOUNDED PRESCRIPTION Take blood pressure daily in * Problem List As Of Date 11/15/2019 Noted Resolved Lower abdominal pain [R10.30] 06/11/2017 Microhematuria [R31.29] 06/11/2017 Colon polyps [K63.5] More... Tobacco use [Z72.0] More... Osteoarthritis [M19.90] More... Obesity (BMI 30.0-34.9) [E66.9] More... Esophageal dysphagia [R13.10] 12/29/2017 Incisional hernia [K43.2] 04/14/2018 08/05/2019 More... Umbilical hernia [K42.9] 04/14/2018 08/05/2019 More... Gastroesophageal reflux disease [K21.9] 04/26/2018 More... Elevated BP without diagnosis of hypertension [*07/29/2018 Spinal stenosis [M48.00] 10/21/2018 More... Chronic right-sided low back pain with right-si*10/22/2018 Encounter Status:Closed by MARQUEZ ODOM on 11/15/19 [facility] HOSPon 11-15-2019 [facility] Patient:Latrell Victor MRN: Height:5' 9(1.753 m) Weight:226 lb (102.513 kg) Outpatient Medications as of 11/18/19: dicyclomine (BENTYL) 10 mg capsule traZODone (DESYREL) 150 mg tablet gabapentin (NEURONTIN) 300 mg capsule Bifidobacterium Infantis (ALIGN) 4 mg cap polyethylene glycol 3350 (MIRALAX) 17 gram/dose powder iv contrast (will be provided with radiology test) 0.9 % sodium chloride (NACL 0.9%) solution pantoprazole DR (PROTONIX) 40 mg tablet buPROPion SR (WELLBUTRIN SR) 150 mg 12 hr tablet albuterol HFA (PROVENTIL HFA, VENTOLIN HFA) 90 mcg/actuation inhaler Blood Pressure Monitor kit COMPOUNDED PRESCRIPTION Admission/Clinic Administered Medications as of 11/18/19: Patient has no admission medications. Problem List: Lower abdominal pain [R10.30] Microhematuria [R31.29] Colon polyps [K63.5] Tobacco use [Z72.0] Osteoarthritis [M19.90] Obesity (BMI 30.0-34.9) [E66.9] Esophageal dysphagia [R13.10] Gastroesophageal reflux disease [K21.9] Elevated BP without diagnosis of hypertension [R03.0] Spinal stenosis [M48.00] Chronic right-sided low back pain with right-sided sciatica [M54.41, G89.29] Allergies: Adhesive Tape-Silicones Hydrocodone-Acetaminophen Date Verified: 11/18/19 Lab Values Lab Value Units Date High Low JEAN-PIERRE* 45.1 % 11/10/2019 51.0 39.0 Progress Notes ([facility]): Barbara Torres LPN 11/17/2019 8:15 AM Signed Patient had a capsule endoscopy. Patient swallowed the capsule without any difficulty. Referring Provider: Dr Samuels Reason for Capsule:Black Stools Patient was given discharge instructions. Ingested capsule endoscope without difficulty at 8:14 AM on 11/17/2019. Progress Notes ([facility]): Marquez Odom RN 11/15/2019 10:40 AM Signed I called Rylan this morning and confirmed with him that he is scheduled for an esophageal manometry on 11/18/19. I verbally discussed the esophageal manometry and the prep instructions. All of patient's questions were answered. Patient is scheduled for Covid testing 11/15/19. Reji Victor has been scheduled for manometry Date: 11/18/19 Arrival Time: 829 Surgery Time: 09 Location: [facility] No clearance required. Scheduled with surgery center: Yes Patient notified of date, time and location: Yes Form faxed to surgery center: Epic Placed on computer schedule: Yes Written on calendar: Yes Surgery information booklet sent/given: No Pre testing details: N/A Admission Type: outpatient Anesthesia: Local Marquez Odom RN [facility] HISTORY PHYSICALon HISTORY PHYSICAL HNO ID: [id number] thor: Nidia FoxSerderejee: General SurgeryAuthor Type: Nurse PractitionerType: HANDPFiled: 02/02/2018 10:25 AMNote Text:HISTORY AND PHYSICAL EXAMINATIONSERVICE DATE: 02/02/2018SERVICE TIME: 10:00 [facility] ALISON BhatI: This is a 42 year old male who presents with history of hiatalhernia that was identified by EGD last year. Patient states I have beenhaving a lot more trouble with swallowing, a lot of time it feels like I'maspirating, and my throat feels tight. Patient also complains of a lotof pain in the epigastric area. He describes the pain as sharp and statesit usually happens after eating and when he bends over. Patient has beentaking acid reflux medication and states no relief in with it. Reportsoccasional nausea, constipation, and diarrhea. Denies vomiting and bloodystool.PAST MEDICAL HISTORYDiagnosis Date- Colon polyps GI in [place]- Kidney stone- Lower abdominal pain 06/11/2017- Microhematuria 06/11/2017- Mitral valve prolapse- Obesity (BMI 30.0-34.9)- Osteoarthritis right knee- Tobacco use Quit 11/2017PAST SURGICAL HISTORYProcedure Laterality Date- CHOLECYSTECTOMY 2014- COLONOSCOPY 06/2017 Normal- COLONOSCOPY 2016 polyps- CYSTOSCOPY,+URETEROSCOPY- EGD 2016 Small hiatal hernia- EYE SURGERY HX - KNEE SCOPE,DIAGNOSTIC Right 2000 Arthroscopy, knee- LEG SURGERY HX Right 1999 ORIF Tib-fib- PAST SURGICAL HISTORY OF Right 2000 Hardware removal right legFAMILY HISTORYProblem Relation Age of Onset- Colon Cancer Mother early 50s- Diabetes Mother- Heart Mother- Hypertension Mother- Diabetes Father- Heart Father [place] at age 63- Hypertension Father- No Known Problems SisterSocial History Marital status: Spouse name: Years of education: Number of children:Social History Main Topics Smoking status: Former Smoker Packs/day: 0.50 Years: 20.00 Types: Cigarettes Quit date: 08/21/2017 Smokeless tobacco: Never Used Comment: Quit smoking in 07/2017, started again end of 08/2017, quit again beginning of 11/2017 Alcohol use: Yes Comment: rarely Drug use: No(Not in a hospital admission)ALLERGIESAllerg en Reactions- Hydrocodone-Acetami* GI UpsetCurrent Outpatient Prescriptions:pantoprazol e DR (PROTONIX) 40 mg tablet Take 1 tablet by mouth once daily.Disp: 60 tablet Rfl: 2ranitidine (ZANTAC) 150 mg tablet Take 1 tablet by mouth twice daily.Disp: 60 tablet Rfl: 0sucralfate (CARAFATE) 1 gram tablet Take 1 tablet by mouth before mealsand at bedtime. Disp: 60 tablet Rfl: 0naproxen (NAPROSYN) 500 mg tablet Take 1 tablet by mouth twice daily asneeded (PAIN). TAKE WITH FOOD Disp: 28 tablet Rfl: 0ondansetron orally disintegrating (ZOFRAN ODT) 4 mg disintegrating tabletTake 1 tablet by mouth every 4 hours as needed for Nausea/Vomiting. Disp:8 tablet Rfl: 0acetaminophen (TYLENOL ARTHRITIS PAIN ORAL) Take 1,300 mg by mouth oncedaily. Disp: Rfl:meloxicam (MOBIC) 7.5 mg tablet Take 1 tablet by mouth once daily. Withfood. Disp: 30 tablet Rfl: 2aspirin, enteric coated (ASPIRIN, ENTERIC COATED) 81 mg EC tablet Take 81mg by mouth once daily. Disp: Rfl:No current facility-administered medications for this encounter.COMPLETE REVIEW OF SYSTEMS:GENERAL: No weight loss, malaise or fevers. + Fatigue.HEENT: Negative for frequent or significant headaches, No changes inhearing or vision, no nose bleeds or other nasal problemsNECK: Negative for lumps, goiter, pain and significant neck swellingRESPIRATORY: Negative for cough, hemoptysis, wheezing, dyspnea orshortness of breath. Denies COPD, asthma, MERLENE.CARDIOVASCULAR: Negative for chest pain, leg swelling, palpitationsGI: See HPIGU: No history of dysuria, frequency or incontinenceMUSCULOSKELET AL: Negative for back pain or muscle pain. + Right knee painand swelling.SKIN: Negative for lesions, rash, and itchingPSYCH: Negative .HEMATOLOGY/LYMPHOLOGY: Negative for prolonged bleeding or bruising easily.+Patient states Left jaw swollen lymph node, currently being evaluated.ENDOCRINE: Negative for cold or heat intolerance, polyuria, polydipsia andgoiterNEURO: No history of headaches, syncope, paralysis, seizures or tremorsOBJECTIVEBP 124/80 Pulse 66 Temp 36.4 ?C (97.5 ?F) Resp 16 SpO2 97%PHYSICAL EXAM:GENERAL: Alert, no distress, cooperativeSKIN: Skin color, texture, turgor normal. No rashes or lesions.HEAD/SINUSES: No significant findingsNECK: No adenopathy present.LUNGS: Lungs clear to auscultation bilateral.CARDIAC: Normal S1 and S2; no rubs, murmurs, or gallopsABDOMEN: Abdomen soft, BS normal. 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 PATIENT NAME: Reji Ponce AmstutzDATE: 02/02/2018 : 10:06 AM [facility] PT EDon 02-02-2018 PT ED HNO ID: [id number] thor: Sintia (Rn) APRIL Beaulieuervice: (none)Author Type: Registered NurseType: Patient EducationFiled: 02/02/2018 11:48 AMNote Text:PATIENT EDUCATION TOPIC: PROCEDURE / SURGERY: Post Procedure Teaching:Med Administration and Symptom ManagementPATIENT NAME: Reji BarajasutzN: [id number] LOCATION: Room/bed info not foundREADINESS TO LEARNCOGNITIVE ABILITY: Alert and orientedMOTIVATION TO LEARN: EagerFAMILY SUPPORT: High - Very involved in pt careINSTRUCTION PROVIDED TO: Patient and family memberPATIENT LEARNS BEST BY: Individual InstructionVerbal InstructionDemonstrationF ACTORS AFFECTING LEARNING: NonePHYSICAL LIMITATIONS AFFECTING LEARNING: NoneLEARNING RESPONSEDIAGNOSIS: difficulty swallowingPATIENT/FAMILY RESPONSE: Information received as demonstrated byinterest and questionsMETHOD OF INSTRUCTION: Individual instructionWritten instruction - handoutsVerbal instructionFOLLOW-UP PLAN: Patient instructed to call with any further issuesReinforce - Repeat previous contentRecommend - Recommend continued instruction and follow up as directedINSTRUCTIONAL AIDS USED: NASUPPLEMENTAL MATERIAL PROVIDED TO PATIENT: NoneREFERRAL (RECOMMENDATION): NoneElectronically Signed By: Sintia Beaulieu RN [facility] PT ED HNO ID: [id number] thor: Tamika Norman (Rn) APRIL Lopezervice: (none)Author Type: Registered NurseType: Patient EducationFiled: 02/02/2018 10:16 AMNote Text:PATIENT EDUCATION TOPIC: PROCEDURE / SURGERY: Pre Procedure Teaching:ProtocolsPATIENT NAME: Reji Ponce AmstutzMRN: [id number] LOCATION: Room/bed info not foundREADINESS TO LEARNCOGNITIVE ABILITY: Alert and orientedMOTIVATION TO LEARN: InterestedFAMILY SUPPORT: Unable to assess - Family not presentINSTRUCTION PROVIDED TO: PatientPATIENT LEARNS BEST BY: Individual InstructionFACTORS AFFECTING LEARNING: NonePHYSICAL LIMITATIONS AFFECTING LEARNING: NoneLEARNING RESPONSEDIAGNOSIS: ADULT: dyphagiaPATIENT/FAMILY RESPONSE: Information received as demonstrated byinterest and questionsMETHOD OF INSTRUCTION: Individual instructionFOLLOW-UP PLAN: Complete - No need for follow-upINSTRUCTIONAL AIDS USED: NASUPPLEMENTAL MATERIAL PROVIDED TO PATIENT: NoneREFERRAL (RECOMMENDATION): NoneElectronically Signed By: Tamika Lopez RN [facility] PROGRESSon 02-01-2018 Protein mass conc HNO ID: [id number] thor: Avis (Yris) LAKISHA Gonzalezervice: General SurgeryAuthor Type: Physician AssistantType: Progress NotesFiled: 02/01/2018 8:15 AMNote Text:I reviewed the patient's allergies and entered the orders requested by theprocedural physician or per anesthesia guidelines.Aki Jimenez 20178:15 AM [facility] HOSPon 01-26-2018 HOSP Patient:Latrell Victor LMRN: Height:5' 9(1.753 m)Weight:203 lb 1.3 oz (92.116 kg)Outpatient Medications as of 02/02/18:pantoprazole DR (PROTONIX) 40 mg tabletranitidine (ZANTAC) 150 mg tabletsucralfate (CARAFATE) 1 gram tabletnaproxen (NAPROSYN) 500 mg tabletondansetron orally disintegrating (ZOFRAN ODT) 4 mg disintegrating tabletacetaminophen (TYLENOL ARTHRITIS PAIN ORAL)meloxicam (MOBIC) 7.5 mg tabletaspirin, enteric coated (ASPIRIN, ENTERIC COATED) 81 mg EC tabletAdmission/Clinic Administered Medications as of 02/02/18:Patient has no admission medications.Problem List:Lower abdominal pain [R10.30]Microhematuria [R31.29]Colon polyps [K63.5]Tobacco use [Z72.0]Osteoarthritis [M19.90]Obesity (BMI 30.0-34.9) [E66.9]Esophageal dysphagia [R13.10]Allergies:Hydroco done-AcetaminophenDate Verified: 02/02/18Lab ValuesNo results within the last 30 days for the following basenames: K,HCTProgress Notes ( SURGERY CENTER):YRIS Jimenez PA 02/01/2018 8:15 AM SignedI reviewed the patient's allergies and entered the orders requested by theprocedural physician or per anesthesia guidelines.Aki Jimenez :15 Tan Fox APRN.[employer] 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 DEVELOPER 02/02/2018 10:25 AM SignedHISTORY AND PHYSICAL EXAMINATIONSERVICE DATE: 02/02/2018SERVICE TIME: 10:00 [facility] CARE PHYSICIAN: Ludy Agustin MDHPI: This is a 42 year old male who presents with history of hiatal hernia thatwas identified by EGD last year. Patient states I have been having a lot moretrouble with swallowing, a lot of time it feels like I'm aspirating, and mythroat feels tight. Patient also complains of a lot of pain in the epigastricarea. He describes the pain as sharp and states it usually happens after eatingand when he bends over. Patient has been taking acid reflux medication andstates no relief in with it. Reports occasional nausea, constipation, anddiarrhea. Denies vomiting and bloody stool.PAST MEDICAL HISTORYDiagnosis Date- Colon polyps GI in [place]- Kidney stone- Lower abdominal pain 06/11/2017- Microhematuria 06/11/2017- Mitral valve prolapse- Obesity (BMI 30.0-34.9)- Osteoarthritis right knee- Tobacco use Quit 11/2017PAST SURGICAL HISTORYProcedure Laterality Date- CHOLECYSTECTOMY 2014- COLONOSCOPY 06/2017 Normal- COLONOSCOPY 2017 polyps- CYSTOSCOPY,+URETEROSCOPY- EGD 2016 Small hiatal hernia- EYE SURGERY HX 1990s- KNEE SCOPE,DIAGNOSTIC Right 2000 Arthroscopy, knee- LEG SURGERY HX Right 1999 ORIF Tib-fib- PAST SURGICAL HISTORY OF Right 2000 Hardware removal right legFAMILY HISTORYProblem Relation Age of Onset- Colon Cancer Mother early 50s- Diabetes Mother- Heart Mother- Hypertension Mother- Diabetes Father- Heart Father [place] at age 63- Hypertension Father- No Known Problems SisterSocial History Marital status: Spouse name: Years of education: Number of children:Social History Main Topics Smoking status: Former Smoker Packs/day: 0.50 Years: 20.00 Types: Cigarettes Quit date: 08/21/2017 Smokeless tobacco: Never Used Comment: Quit smoking in 07/2017, started again end of 08/2017, quit again beginning of 11/2017 Alcohol use: Yes Comment: rarely Drug use: No(Not in a hospital admission)ALLERGIESAllerg en Reactions- Hydrocodone-Acetami* GI UpsetCurrent Outpatient Prescriptions:pantoprazol e DR (PROTONIX) 40 mg tablet Take 1 tablet by mouth once daily. Disp:60 tablet Rfl: 2ranitidine (ZANTAC) 150 mg tablet Take 1 tablet by mouth twice daily. Disp: 60tablet Rfl: 0sucralfate (CARAFATE) 1 gram tablet Take 1 tablet by mouth before meals and atbedtime. Disp: 60 tablet Rfl: 0naproxen (NAPROSYN) 500 mg tablet Take 1 tablet by mouth twice daily as needed(PAIN). TAKE WITH FOOD Disp: 28 tablet Rfl: 0ondansetron orally disintegrating (ZOFRAN ODT) 4 mg disintegrating tablet Take 1tablet by mouth every 4 hours as needed for Nausea/Vomiting. Disp: 8 tablet Rfl:0acetaminophen (TYLENOL ARTHRITIS PAIN ORAL) Take 1,300 mg by mouth once daily.Disp: Rfl:meloxicam (MOBIC) 7.5 mg tablet Take 1 tablet by mouth once daily. With food.Disp: 30 tablet Rfl: 2aspirin, enteric coated (ASPIRIN, ENTERIC COATED) 81 mg EC tablet Take 81 mg bymouth once daily. Disp: Rfl:No current facility-administered medications for this encounter.COMPLETE REVIEW OF SYSTEMS:GENERAL: No weight loss, malaise or fevers. + Fatigue.HEENT: Negative for frequent or significant headaches, No changes in hearing orvision, no nose bleeds or other nasal problemsNECK: Negative for lumps, goiter, pain and significant neck swellingRESPIRATORY: Negative for cough, hemoptysis, wheezing, dyspnea or shortness ofbreath. Denies COPD, asthma, MERLENE.CARDIOVASCULAR: Negative for chest pain, leg swelling, palpitationsGI: See HPIGU: No history of dysuria, frequency or incontinenceMUSCULOSKELET AL: Negative for back pain or muscle pain. + Right knee pain andswelling.SKIN: Negative for lesions, rash, and itchingPSYCH: Negative .HEMATOLOGY/LYMPHOLOGY: Negative for prolonged bleeding or bruising easily.+Patient states Left jaw swollen lymph node, currently being evaluated.ENDOCRINE: Negative for cold or heat intolerance, polyuria, polydipsia andgoiterNEURO: No history of headaches, syncope, paralysis, seizures or tremorsOBJECTIVEBP 124/80 Pulse 66 Temp 36.4 ?C (97.5 ?F) Resp 16 SpO2 97%PHYSICAL EXAM:GENERAL: Alert, no distress, cooperativeSKIN: Skin color, texture, turgor normal. No rashes or lesions.HEAD/SINUSES: No significant findingsNECK: No adenopathy present.LUNGS: Lungs clear to auscultation bilateral.CARDIAC: Normal S1 and S2; no rubs, murmurs, or gallopsABDOMEN: Abdomen soft, BS normal. 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 PATIENT NAME: Reji VictorDATE: 02/02/2018 : 10:06 AMTamika Lopez RN, RN 02/02/2018 10:16 AM SignedPATIENT EDUCATION TOPIC: PROCEDURE / SURGERY: Pre Procedure Teaching:ProtocolsPATIENT NAME: Reji VictorMRN: [id number] LOCATION: Room/bed info not foundREADINESS TO LEARNCOGNITIVE ABILITY: Alert and orientedMOTIVATION TO LEARN: InterestedFAMILY SUPPORT: Unable to assess - Family not presentINSTRUCTION PROVIDED TO: PatientPATIENT LEARNS BEST BY: Individual InstructionFACTORS AFFECTING LEARNING: NonePHYSICAL LIMITATIONS AFFECTING LEARNING: NoneLEARNING RESPONSEDIAGNOSIS: ADULT: dyphagiaPATIENT/FAMILY RESPONSE: Information received as demonstrated by interest andquestionsMETHOD OF INSTRUCTION: Individual instructionFOLLOW-UP PLAN: Complete - No need for follow-upINSTRUCTIONAL AIDS USED: NASUPPLEMENTAL MATERIAL PROVIDED TO PATIENT: NoneREFERRAL (RECOMMENDATION): NoneElectronically Signed By: Tamika Lopez, RNProgress Notes ([facility]):Tiffany Juan RN, RN 01/20/2018 3:42 PM SignedI called patient and reviewed instructions for EGD. Patient instructed on dietand medication regimen. Patient verbalized understanding of all instructionsand will call with any questions.Tiffany Juan RN Normal [facility] Cult Urineon 06-11-2017 Cult Urine Test performed at [facility] No growth Normal [facility] Comment on above: Performed By: #### C _URI ####[place] [address] Urinalysis Routineon 12-14-2 017 Ep Cells Urine 0.3 /hpf Normal 0.0-5.[address] [facility] Comment on above: Performed By: #### U RIN2 ####[facility] [place], [place] [address] Hyaline Cast 1.5 /lpf High 0.0-1.[address] [facility] Comment on above: Performed By: #### U RIN2 ####[facility] [place], [place] [address] Urine, bacteria in sediment NONE Normal None [facility] Comment on above: Performed By: #### U RIN2 ####[address] [address] Urine, erythrocytes in sediment by area 5.7 /[HPF] High 0.0-5.[address] [facility] Comment on above: Performed By: #### U RIN2 ####[address] [address] Urine, leukocytes in sedmiment 1.0 /[HPF] Normal 0.0-5.[address] [facility] Comment on above: Performed By: #### U RIN2 ####[address] [address] Bilirubin Urine Negative Normal Negative [facility] Comment on above: Performed By: #### U RIN2 ####[address] [address] Hemoglobin,Urine SMALL Abnormal Negative [facility] Comment on above: Performed By: #### U RIN2 ####[address] [address] Ketone Urine Negative Normal Negative [facility] Comment on above: Performed By: #### U RIN2 ####[address] [address] Nitrites Urine Negative Normal Negative [facility] Comment on above: Performed By: #### U RIN2 ####[address] [address] Protein Urine Negative Normal Negative [facility] Comment on above: Performed By: #### U RIN2 ####[place] [address] Specific [place], Ur 1.014 Normal 1.005-1.030 [facility] Comment on above: Performed By: #### U RIN2 ####[place] [address] Urine, appearance CLOUDY Normal [facility] Comment on above: Performed By: #### U RIN2 ####[place] [address] Urine, color YELLOW Normal [facility] Comment on above: Performed By: #### U RIN2 ####[place] [address] Urine, glucose presence Negative Normal Negative [facility] Comment on above: Performed By: #### U RIN2 ####[place] [address] Urine, pH 7.5 [pH] Normal 5.0-8.[address] [facility] Comment on above: Performed By: #### U RIN2 ####[place] [address] Urobilinogen,Ur 0.2 EU/dL Normal 0.0-1.[address] [facility] Comment on above: Performed By: #### U RIN2 ####[place] [address] WBC (Leukocytes) Negative Normal Negative [facility] Comment on above: Performed By: #### U RIN2 ####[place] [address] Vital Signs Date Time Vital Sign Value Performing Clinician Josey henning 11-04-2024 15:44-0400 Body height 177.[address] JOYCE PEGUERO MD [facility] 11-04-2024 15:44-0400 Body temperature 98.24 [degF] DR JOYCE PEGUERO MD [facility] 11-04-2024 15:44-0400 Body weight 113.[address] JOYCE PEGUERO MD [facility] 11-04-2024 15:44-0400 Diastolic Blood Pressure Non-Invasive 88 mm[Hg] DR JOYCE PEGUERO MD [facility] 11-04-2024 15:44-0400 Heart rate 79 /min DR JOYCE PEGUERO MD [facility] 11-04-2024 15:44-0400 Respiratory rate 16 /min DR JOYCE PEGUERO MD [facility] 11-04-2024 15:44-0400 Systolic Blood Pressure Non-Invasive 133 mm[Hg] DR JOYCE PEGUERO MD [facility] 08-13-2024 20:09-0500 Diastolic Blood Pressure Non-Invasive 85 mm[Hg] DR KARLA BARAHONA MD [facility] 08-13-2024 20:09-0500 Heart rate 80 /min DR KARLA BARAHONA MD [facility] 08-13-2024 20:09-0500 Respiratory rate 18 /min DR KARLA BARAHONA MD [facility] 08-13-2024 20:09-0500 Systolic Blood Pressure Non-Invasive 140 mm[Hg] DR KARLA BARAHONA MD [facility] 08-13-2024 12:19-0500 Body temperature 97.7 [degF] DR KARLA BARAHONA MD [facility] 08-13-2024 12:19-0500 Body weight [address] KARLA BARAHONA MD [facility] 08-13-2024 12:19-0500 Diastolic Blood Pressure Non-Invasive 97 mm[Hg] DR KARLA BARAHONA MD [facility] 08-13-2024 12:19-0500 Heart rate 84 /min DR KARLA BARAHONA MD [facility] 08-13-2024 12:19-0500 Respiratory rate 18 /min DR KARLA BARAHONA MD [facility] 08-13-2024 12:19-0500 Systolic Blood Pressure Non-Invasive 168 mm[Hg] DR KARLA BARAHONA MD [facility] 08-08-2024 16:26-0500 Diastolic Blood Pressure Non-Invasive 75 mm[Hg] ESTHER HARDINGT [facility] 08-08-2024 16:26-0500 Heart rate 77 /min ESTHER HARDINGT [facility] 08-08-2024 16:26-0500 Respiratory rate 18 /min ESTHER HARDINGT [facility] 08-08-2024 16:26-0500 Systolic Blood Pressure Non-Invasive 124 mm[Hg] ESTHER HARDINGT [facility] 08-08-2024 12:48-0500 Blood Pressure Location ESTHER HARDINGT DO [facility] 08-08-2024 12:48-0500 Blood Pressure Method ESTHER HARDINGT DO [facility] 08-08-2024 12:48-0500 Body height 176 cm ESTHER HARDINGT DO [facility] 08-08-2024 12:48-0500 Body temperature 98.24 [degF] ESTHER HARDINGT DO [facility] 08-08-2024 12:48-0500 Body weight 113.6 kg ESTHER HARDINGT DO [facility] 08-08-2024 12:48-0500 Diastolic Blood Pressure Non-Invasive 87 mm[Hg] ESTHER HARDINGT DO [facility] 08-08-2024 12:48-0500 Heart rate 78 /min ESTHER HARDINGT DO [facility] 08-08-2024 12:48-0500 Respiratory rate 16 /min [facility] 08-08-2024 12:48-0500 Systolic Blood Pressure Non-Invasive 127 mm[Hg] [facility] 03-23-2024 19:03-0400 Body temperature 98.06 [degF] BEATRIZ BROOKS MD [address] [place] [address] 03-23-2024 19:03-0400 Diastolic Blood Pressure Non-Invasive 87 mm[Hg] BEATRIZ BROOKS MD [address] [place] [address] 03-23-2024 19:03-0400 Heart rate 79 /min BEATRIZ BROOKS MD [address] [place] [address] 03-23-2024 19:03-0400 Respiratory rate 19 /min BEATRIZ BROOKS MD [facility] 03-23-2024 19:03-0400 Systolic Blood Pressure Non-Invasive 138 mm[Hg] BEATRIZ BROOKS MD [facility] 03-23-2024 17:13-0400 Body temperature 98.24 [degF] BEATRIZ BROOKS MD [facility] 03-23-2024 17:13-0400 Diastolic Blood Pressure Non-Invasive 94 mm[Hg] BEATRIZ BROOKS MD [address] [place] [address] 03-23-2024 17:13-0400 Heart rate 81 /min BEATRIZ BROOKS MD [facility] 03-23-2024 17:13-0400 Respiratory rate 20 /min BEATRIZ BROOKS MD [address] [place] [address] 03-23-2024 17:13-0400 Systolic Blood Pressure Non-Invasive 145 mm[Hg] BEATRIZ BROOKS MD [address] [place] [address] 01-11-2024 18:42-0400 Body temperature 98.24 [degF] BEATRIZ BROOKS MD [address] [place] [address] 01-11-2024 18:42-0400 Diastolic Blood Pressure Non-Invasive 84 mm[Hg] BEATRIZ BROOKS MD [address] [place] [address] 01-11-2024 18:42-0400 Heart rate 90 /min BEATRIZ BROOKS MD [address] [place] [address] 01-11-2024 18:42-0400 Respiratory rate 16 /min BEATRIZ BROOKS MD [address] [place] [address] 01-11-2024 18:42-0400 Systolic Blood Pressure Non-Invasive 138 mm[Hg] BEATRIZ BROOKS MD [address] [place] [address] 01-02-2024 12:10-0400 Body temperature 98.42 [degF] MARINA ESPINOZA MD [address] 01-02-2024 12:10-0400 Diastolic Blood Pressure Non-Invasive 80 mm[Hg] MARINA ESPINOZA MD [address] 01-02-2024 12:10-0400 Heart rate 76 /min MARINA ESPINOZA MD [address] 01-02-2024 12:10-0400 Reason For Taking VItal Signs MARINA ESPINOZA MD [address] [place] [address] 01-02-2024 12:10-0400 Respiratory rate 18 /min MARINA ESPINOZA MD [address] 01-02-2024 12:10-0400 Systolic Blood Pressure Non-Invasive 132 mm[Hg] MARINA ESPINOZA MD [address] [place] [address] 01-02-2024 07:39-0400 Body temperature 98.42 [degF] MARINA ESPINOZA MD [address] [place] [address] 01-02-2024 07:39-0400 Diastolic Blood Pressure Non-Invasive 91 mm[Hg] MARINA ESPINOZA MD [address] [place] [address] 01-02-2024 07:39-0400 Heart rate 77 /min MARINA ESPINOZA MD [address] [place] [address] 01-02-2024 07:39-0400 Mean blood pressure 104 mm[Hg] MARINA ESPINOZA MD [address] [place] [address] 01-02-2024 07:39-0400 Reason For Taking VItal Signs MARINA ESPINOZA MD [address] [place] [address] 01-02-2024 07:39-0400 Respiratory rate 16 /min MARINA ESPINOZA MD [address] [place] [address] 01-02-2024 07:39-0400 Systolic Blood Pressure Non-Invasive 139 mm[Hg] MARINA ESPINOZA MD [address] [place] [address] 01-02-2024 07:07-0400 Heart rate 71 /min MARINA ESPINOZA MD [address] [place] [address] 01-02-2024 07:07-0400 Respiratory rate 16 /min MARINA ESPINOZA MD [address] [place] [address] 01-02-2024 03:04-0400 Body temperature 99.5 [degF] MARINA ESPINOZA MD [address] [place] [address] 01-02-2024 03:04-0400 Diastolic Blood Pressure Non-Invasive 76 mm[Hg] MARINA ESPINOZA MD [address] [place] [address] 01-02-2024 03:04-0400 Heart rate 77 /min MARINA ESPINOZA MD [address] [place] [address] 01-02-2024 03:04-0400 Mean blood pressure 91 mm[Hg] MARINA ESPINOZA MD [address] [place] [address]-06-2024 03:04-0400 Reason For Taking VItal Signs MARINA ESPINOZA MD [address] [place] [address] 01-02-2024 03:04-0400 Systolic Blood Pressure Non-Invasive 125 mm[Hg] MARINA ESPINOZA MD [address] [place] [address] 01-01-2024 23:39-0400 Body temperature 99.32 [degF] MARINA ESPINOZA MD [address] [place] [address] 01-01-2024 23:39-0400 Mean blood pressure 100 mm[Hg] MARINA ESPINOZA MD [address] [place] [address] 01-01-2024 18:37-0400 Heart rate 76 /min MARINA ESPINOZA MD [address] [place] [address] 01-01-2024 11:33-0400 Heart rate 67 /min MARINA ESPINOZA MD [address] [place] [address] 12-30-2023 11:10-0400 Blood Pressure Location MARINA ESPINOZA MD [address] [place] [address] 12-30-2023 11:10-0400 Blood Pressure Method MARINA ESPINOZA MD [address] [place] [address] 12-29-2023 05:15-0400 Body temperature 98.24 [degF] MARINA ESPINOZA MD [address] [place] [address] 12-24-2023 16:50-0400 Respiratory Rate - Anes 0 br/min MARINA ESPINOZA MD [address] [place] [address] 12-24-2023 16:45-0400 Respiratory Rate - Anes 0 br/min MARINA ESPINOZA MD [address] [place] [address] 12-24-2023 16:40-0400 Respiratory Rate - Anes 0 br/min MARINA ESPINOZA MD [address] [place] [address] 12-24-2023 16:00-0400 Body temperature 97.93 [degF] MARINA ESPINOZA MD [address] [place] [address] 12-24-2023 15:55-0400 Body temperature 97.88 [degF] MARINA ESPINOZA MD [address] [place] [address] 12-24-2023 15:50-0400 Body temperature 97.84 [degF] MARINA ESPINOZA MD [address] [place] [address] 12-24-2023 11:02-0400 Blood Pressure Cuff Size MARINA ESPINOZA MD [address] [place] [address] 12-24-2023 11:02-0400 Blood Pressure Location MARINA ESPINOZA MD [address] [place] [address] 12-24-2023 11:02-0400 Blood Pressure Method MARINA ESPINOZA MD [address] [place] [address] 12-24-2023 06:42-0400 Blood Pressure Cuff Size MARINA ESPINOZA MD [address] [place] [address] 12-24-2023 06:42-0400 Blood Pressure Location MARINA ESPINOZA MD [address] [place] [address] 12-24-2023 06:42-0400 Blood Pressure Method MARINA ESPINOZA MD [address] [place] [address] 12-23-2023 23:19-0400 Heart rate 83 /min MARINA ESPINOZA MD [address] [place] [address] 12-23-2023 18:55-0400 Blood Pressure Cuff Size MARINA ESPINOZA MD [address] [place] [address] 12-22-2023 22:31-0400 Heart rate 79 /min MARINA ESPINOZA MD [address] [place] [address] 12-22-2023 15:05-0400 Body height 175.3 cm MARINA ESPINOZA MD [address] [place] [address] 12-22-2023 15:05-0400 Body weight 113.6 kg MARINA ESPINOZA MD [address] [place] [address] 12-22-2023 15:05-0400 Body weight 36.97 kg/m2 MARINA ESPINOZA MD [address] [place] [address] 12-11-2023 06:43-0400 Blood Pressure Cuff Size FALLON KAPOOR MD [address] [place] [address] 12-11-2023 06:43-0400 Blood Pressure Location FALLON KAPOOR MD [address] [place] [address] 12-11-2023 06:43-0400 Blood Pressure Method FALLON KAPOOR MD [address] [place] [address] 12-11-2023 06:43-0400 Body temperature 98.42 [degF] FALLON KAPOOR MD [address] [place] [address] 12-11-2023 06:43-0400 Diastolic Blood Pressure Non-Invasive 73 mm[Hg] FALLON KAPOOR MD [address] [place] [address] 12-11-2023 06:43-0400 Heart rate 75 /min FALLON KAPOOR MD [address] [place] [address] 12-11-2023 06:43-0400 Reason For Taking VItal Signs FALLON KAPOOR MD [address] [place] [address] 12-11-2023 06:43-0400 Respiratory rate 20 /min FALLON KAPOOR MD [address] [place] [address] 12-11-2023 06:43-0400 Systolic Blood Pressure Non-Invasive 124 mm[Hg] FALLON KAPOOR MD [address] [place] [address] 12-11-2023 06:24-0400 Heart rate 74 /min FALLON KAPOOR MD [address] [place] [address] 12-11-2023 06:24-0400 Respiratory rate 18 /min FALLON KAPOOR MD [address] [place] [address] 12-11-2023 04:12-0400 Body temperature 99.5 [degF] FALLON KAPOOR MD [address] [place] [address] 12-11-2023 04:12-0400 Diastolic Blood Pressure Non-Invasive 73 mm[Hg] FALLON KAPOOR MD [address] [place] [address] 12-11-2023 04:12-0400 Heart rate 71 /min FALLON KAPOOR MD [address] [place] [address] 12-11-2023 04:12-0400 Reason For Taking VItal Signs FALLON KAPOOR MD [address] [place] [address] 12-11-2023 04:12-0400 Respiratory rate 18 /min FALLON KAPOOR MD [address] [place] [address] 12-11-2023 04:12-0400 Systolic Blood Pressure Non-Invasive 128 mm[Hg] FALLON KAPOOR MD [address] [place] [address] 12-10-2023 23:15-0400 Body temperature 98.24 [degF] FALLON KAPOOR MD [address] [place] [address] 12-10-2023 23:15-0400 Diastolic Blood Pressure Non-Invasive 68 mm[Hg] FALLON KAPOOR MD [address] [place] [address] 12-10-2023 23:15-0400 Systolic Blood Pressure Non-Invasive 117 mm[Hg] FALLON KAPOOR MD [address] [place] [address] 12-10-2023 18:24-0400 Blood Pressure Cuff Size FALLON KAPOOR MD [address] [place] [address] 12-10-2023 18:24-0400 Blood Pressure Location FALLON KAPOOR MD [address] [place] [address] 12-10-2023 18:24-0400 Blood Pressure Method FALLON KAPOOR MD [address] [place] [address] 12-10-2023 15:40-0400 Blood Pressure Cuff Size FALLON KAPOOR MD [address] [place] [address] 12-10-2023 15:40-0400 Blood Pressure Location FALLON KAPOOR MD [address] [place] [address] 12-10-2023 15:40-0400 Blood Pressure Method FALLON KAPOOR MD [address] [place] [address] 12-10-2023 02:20-0400 Heart rate 87 /min FALLON KAPOOR MD [address] [place] [address] 12-09-2023 14:42-0400 Body temperature 97.7 [degF] FALLON KAPOOR MD [address] [place] [address] 12-08-2023 14:05-0400 Body height 177.8 cm FALLON KAPOOR MD [address] [place] [address] 12-08-2023 14:05-0400 Body weight 108.1 kg FALLON KAPOOR MD [address] [place] [address] 12-08-2023 14:05-0400 Body weight 34.19 kg/m2 FALLON KAPOOR MD [address] [place] [address] 12-08-2023 13:52-0400 Mean blood pressure 78 mm[Hg] FALLON KAPOOR MD [address] [place] [address] 12-08-2023 13:15-0400 Body temperature 96.98 [degF] FALLON KAPOOR MD [address] [place] [address] 12-08-2023 13:15-0400 Heart rate 84 /min FALLON KAPOOR MD [address] [place] [address] 12-08-2023 13:15-0400 Mean blood pressure 81 mm[Hg] FALLON KAPOOR MD [address] [place] [address] 12-08-2023 13:00-0400 Heart rate 90 /min FALLON KAPOOR MD [address] [place] [address] 12-08-2023 13:00-0400 Mean blood pressure 89 mm[Hg] FALLON KAPOOR MD [address] [place] [address] 12-08-2023 12:30-0400 Body temperature 97.16 [degF] FALLON KAPOOR MD [address] [place] [address] 12-08-2023 12:25-0400 Respiratory Rate - Anes 8 br/min FALLON KAPOOR MD [address] [place] [address] 12-08-2023 12:20-0400 Respiratory Rate - Anes 23 br/min FALLON KAPOOR MD [address] [place] [address] 12-08-2023 12:15-0400 Respiratory Rate - Anes 14 br/min FALLON KAPOOR MD [address] [place] [address] 12-08-2023 11:45-0400 Body temperature 96.8 [degF] FALLON KAPOOR MD [address] [place] [address] 12-08-2023 07:39-0400 Body height 177.8 cm FALLON KAPOOR MD [address] [place] [address] 12-08-2023 07:39-0400 Body weight 108.1 kg FALLON KAPOOR MD [address] [place] [address] 12-08-2023 06:50-0400 Body temperature 97.34 [degF] FALLON KAPOOR MD [address] [place] [address] 12-08-2023 06:50-0400 Heart rate 68 /min FALLON KAPOOR MD [address] [place] [address] 11-27-2023 12:06-0400 Blood Pressure Cuff Size FALLON KAPOOR MD [address] [place] [address] 11-27-2023 12:06-0400 Blood Pressure Location FALLON KAPOOR MD [address] [place] [address] 11-27-2023 12:06-0400 Blood Pressure Method FALLON KAPOOR MD [address] [place] [address] 11-27-2023 12:06-0400 Body height 170.2 cm FALLON KAPOOR MD [address] [place] [address] 11-27-2023 12:06-0400 Body temperature 97.52 [degF] FALLON KAPOOR MD [address] [place] [address] 11-27-2023 12:06-0400 Body weight 111.5 kg FALLON KAPOOR MD [facility] 11-27-2023 12:06-0400 Diastolic Blood Pressure Non-Invasive 95 mm[Hg] FALLON KAPOOR MD [facility] 11-27-2023 12:06-0400 Heart rate 67 /min FALLON KAPOOR MD [facility] 11-27-2023 12:06-0400 Systolic Blood Pressure Non-Invasive 137 mm[Hg] FALLON KAPOOR MD [facility] 09-19-2023 16:08-0400 Diastolic Blood Pressure Non-Invasive 76 mm[Hg] TED STOUT MD [facility] 09-19-2023 16:08-0400 Heart rate 73 /min TED STOUT MD [address] 09-19-2023 16:08-0400 Respiratory rate 18 /min TED STOUT MD [facility] 09-19-2023 16:08-0400 Systolic Blood Pressure Non-Invasive 125 mm[Hg] TED STOUT MD [address] [place] [address] 09-19-2023 13:37-0400 Diastolic Blood Pressure Non-Invasive 73 mm[Hg] TED STOUT MD [facility] 09-19-2023 13:37-0400 Heart rate 80 /min TED STOUT MD [address] [place] [address] 09-19-2023 13:37-0400 Respiratory rate 18 /min TED STOUT MD [address] [place] [address] 09-19-2023 13:37-0400 Systolic Blood Pressure Non-Invasive 118 mm[Hg] TED STOUT MD [address] [place] [address] 09-19-2023 10:47-0400 Diastolic Blood Pressure Non-Invasive 73 mm[Hg] TED STOUT MD [facility] 09-19-2023 10:47-0400 Heart rate 78 /min TED STOUT MD [facility] 09-19-2023 10:47-0400 Respiratory rate 17 /min TED STOUT MD [facility] 09-19-2023 10:47-0400 Systolic Blood Pressure Non-Invasive 130 mm[Hg] TED STOUT MD [address] 09-19-2023 09:39-0400 Body weight 119.1 kg TED STOUT MD [address] 09-19-2023 08:32-0400 Body temperature 97.7 [degF] TED STOUT MD [address] 09-19-2023 08:32-0400 Heart rate 85 /min TED STOUT MD [address] [place] [address] 08-10-2023 11:43-0500 Diastolic Blood Pressure Non-Invasive 92 mm[Hg] TIGRE REICHFIELD DO [address] [place] [address] 08-10-2023 11:43-0500 Heart rate 81 /min TIGRE REICHFIELD DO [address] [place] [address] 08-10-2023 11:43-0500 Respiratory rate 18 /min TIGRE REICHFIELD DO [facility] 08-10-2023 11:43-0500 Systolic Blood Pressure Non-Invasive 151 mm[Hg] TIGRE REICHFIELD DO [address] [place] [address] 08-10-2023 11:24-0500 Diastolic Blood Pressure Non-Invasive 90 mm[Hg] TIGRE REICHFIELD DO [facility] 08-10-2023 11:24-0500 Heart rate 73 /min TIGRE REICHFIELD DO [facility] 08-10-2023 11:24-0500 Respiratory rate 18 /min TIGRE REICHFIELD DO [facility] 08-10-2023 11:24-0500 Systolic Blood Pressure Non-Invasive 134 mm[Hg] [facility] 08-10-2023 09:56-0500 Body temperature 97.16 [degF] [facility] 08-10-2023 09:56-0500 Body weight 115 kg [facility] [employer] [facility] 08-10-2023 09:56-0500 Diastolic Blood Pressure Non-Invasive 110 mm[Hg] [facility] 08-10-2023 09:56-0500 Heart rate 71 /min [facility] DO [facility] 08-10-2023 09:56-0500 Respiratory rate 18 /min [facility] [employer] [facility] 08-10-2023 09:56-0500 Systolic Blood Pressure Non-Invasive 181 mm[Hg] [facility] 05-01-2023 16:02-0400 Diastolic blood pressure 78 mm[Hg] [facility] 05-01-2023 16:02-0400 Heart rate 80 /min [facility] 05-01-2023 16:02-0400 Respiratory rate 16 /min [facility] 05-01-2023 16:02-0400 SaO2% (BldA) [Mass fraction] 98 % [facility] 05-01-2023 16:02-0400 Systolic blood pressure 138 mm[Hg] [facility] 05-01-2023 13:17-0400 Body height 175.26 cm [facility] 05-01-2023 13:17-0400 Body mass index (BMI) [Ratio] 35.4 kg/m2 [facility] 05-01-2023 13:17-0400 Body temperature 97.8 [degF] [facility] 05-01-2023 13:17-0400 Body weight 108.94 kg [facility] 04-27-2023 11:22-0400 Blood Pressure Location KIMBERLEY LEE MD [facility] 04-27-2023 11:22-0400 Blood Pressure Method KIMBERLEY LEE MD [facility] 04-27-2023 11:22-0400 Body temperature 98.24 [degF] KIMBERLEY LEE MD [facility] 04-27-2023 11:22-0400 Diastolic Blood Pressure Non-Invasive 97 1 KIMBERLEY LEE MD [facility] 04-27-2023 11:22-0400 Heart rate 94 /min KIMBERLEY LEE MD [facility] 04-27-2023 11:22-0400 Respiratory rate 18 /min KIMBERLEY LEE MD [facility] 04-27-2023 11:22-0400 Systolic Blood Pressure Non-Invasive 153 1 KIMBERLEY LEE MD [facility] 03-04-2023 11:59-0400 Body temperature 98.2 [degF] Unlisted provider (Unknown) [facility] 03-04-2023 11:59-0400 Body weight 99.79 Unlisted provider (Unknown) [facility] 03-04-2023 11:59-0400 Diastolic blood pressure 84 mm[Hg] Unlisted provider (Unknown) [facility] 03-04-2023 11:59-0400 Heart rate 110 /min Unlisted provider (Unknown) [facility] 03-04-2023 11:59-0400 Respiratory rate 20 /min Unlisted provider (Unknown) [facility] 03-04-2023 11:59-0400 SaO2% (BldA) [Mass fraction] 97 % Unlisted provider (Unknown) [facility] 03-04-2023 11:59-0400 Systolic blood pressure 141 mm[Hg] Unlisted provider (Unknown) [facility] 02-19-2023 10:38-0400 Body height 172.7 cm Cedrick Dash MD Work Phone: [facility] 02-19-2023 10:38-0400 Body weight 104.33 kg Cedrick Dash MD Work Phone: [facility] 02-19-2023 10:38-0400 Diastolic blood pressure 100 mm[Hg] Cedrick Dash MD Work Phone: [facility] 02-19-2023 10:38-0400 Heart rate 88 /min Cedrick Dash MD Work Phone: [facility] 02-19-2023 10:38-0400 SaO2% (BldA) [Mass fraction] 97 % Cedrick Dash MD Work Phone: [facility] 02-19-2023 10:38-0400 Systolic blood pressure 154 mm[Hg] Cedrick Dash MD Work Phone: [facility] 01-30-2023 12:39-0400 Body height 172.7 cm Maggie Hess MD Work Phone: [facility] 01-30-2023 12:39-0400 Body weight 104.33 kg Maggie Hess MD Work Phone: [facility] 01-30-2023 12:39-0400 Diastolic blood pressure 80 mm[Hg] Maggie Hess MD Work Phone: [facility] 01-30-2023 12:39-0400 Heart rate 94 /min Maggie Hess MD Work Phone: [facility] 01-30-2023 12:39-0400 Respiratory rate 18 /min Maggie Hess MD Work Phone: [facility] 01-30-2023 12:39-0400 SaO2% (BldA) [Mass fraction] 95 % Maggie Hess MD Work Phone: [facility] 01-30-2023 12:39-0400 Systolic blood pressure 130 mm[Hg] Maggie Hess MD Work Phone: [facility] 01-22-2022 07:36-0400 Body height 177.8 cm Greg Smith PA-C Work Phone: [facility] 01-22-2022 07:36-0400 Body weight 98.61 kg Greg Smith PA-C Work Phone: [facility] 01-22-2022 07:36-0400 Diastolic blood pressure 83 mm[Hg] Greg Smith PA-C Work Phone: [facility] 01-22-2022 07:36-0400 Heart rate 78 /min Greg Smith PA-C Work Phone: [facility] 01-22-2022 07:36-0400 SaO2% (BldA) [Mass fraction] 100 % Greg Smith PA-C Work Phone: [facility] 01-22-2022 07:36-0400 Systolic blood pressure 130 mm[Hg] Greg Smith PA-C Work Phone: [facility] 01-06-2022 10:14-0400 Body weight 97.25 kg Ludy Agustin MD Work Phone: [facility] 01-06-2022 10:14-0400 Diastolic blood pressure 72 mm[Hg] Ludy Agustin MD Work Phone: [facility] 01-06-2022 10:14-0400 Heart rate 89 /min Ludy Agustin MD Work Phone: [facility] 01-06-2022 10:14-0400 Respiratory rate 16 /min Ludy Agustin MD Work Phone: [facility] 01-06-2022 10:14-0400 SaO2% (BldA) [Mass fraction] 98 % Ludy Agustin MD Work Phone: [facility] 01-06-2022 10:14-0400 Systolic blood pressure 104 mm[Hg] Ludy Agustin MD Work Phone: [facility] 01-02-2022 16:36-0400 Body temperature 97.7 [degF] Ludy Agustin MD Work Phone: [facility] 01-02-2022 16:36-0400 Body weight 98.7 kg Ludy Agustin MD Work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 [facility] Payers Date Payer Category Payer Unknown [id number] 2023 Self-pay 2022 Private Health Insurance [id number] 2017 Medicaid [id number] 2017 Medicaid [id number] 2014 Medicaid [id number] 1973 Unknown [id number] 2.16.8 40.1.856078.3.579.2 1973 Unknown [id number] 2.16.8 40.1.340197.3.579.2. 1973 Unknown [id number] 2.16.8 40.1.232577.3.579.2 1973 Unknown [id number] 2.16.8 40.1.872244.3.579.2. 1973 Unknown [id number] 2.16.8 40.1.206990.3.579.2 1973 Unknown [id number] 2.16.8 40.1.632448.3.579.2.7 1973 Unknown [id number] 2.16.8 40.1.527719.3.579.2 1973 Unknown [id number] 2.16.8 40.1.910356.3.579.2 1973 Unknown [id number] 2.16.8 40.1.980242.3.579.2 1973 Unknown [id number] 2.16.8 40.1.764014.3.579.2 1973 Unknown [id number] 2.16.8 40.1.537077.3.579.2 1973 Unknown [id number] 2.16.8 40.1.853550.3.579.2 1973 Unknown [id number] 2.16.8 40.1.215932.3.579.2 1973 Unknown [id number] 2.16.8 40.1.300625.3.579.2 1973 Unknown [id number] 2.16.8 40.1.438917.3.579.2 1973 Unknown [id number] 2.16.8 40.1.621458.3.579.2 1973 Unknown [id number] 2.16.8 40.1.405589.3.579.2 1973 Unknown [id number] 2.16.8 40.1.077886.3.579.2 1973 Unknown [id number] 2.16.8 40.1.661825.3.579.2 1973 Unknown [id number] 2.16.8 40.1.412155.3.579.2 1973 Unknown [id number] 2.16.8 40.1.571938.3.579.2 1973 Unknown [id number] 2.16.8 40.1.722137.3.579.2 1973 Unknown [id number] 2.16.8 40.1.429306.3.579.2.627 1973 Unknown [id number] 2.16.8 40.1.668023.3.579.2. 1973 Unknown [id number] 2.16.8 40.1.496218.3.579.2. 1973 Unknown [id number] 2.16.8 40.1.941286.3.579.2. 1973 Unknown [id number] 2.16.8 40.1.190454.3.579.2. 1973 Unknown [id number] .16.8 40.1.721429.3.579.2. 1973 Unknown [id number] 2.16.8 40.1.404031.3.579.2. 1973 Unknown [id number] .16.8 40.1.066540.3.579.2. 1973 Unknown [id number] 2.16.8 40.1.712142.3.579.2. 1973 Unknown [id number] 2.16.8 40.1.616365.3.579.2. 1973 Unknown [id number] 2.16.8 40.1.986205.3.579.2. 1973 Unknown [id number] 2.16.8 40.1.842344.3.579.2. 1973 Unknown [id number] 2.16.8 40.1.946258.3.579.2. 1973 Unknown [id number] 2.16.8 40.1.606667.3.579.2. 1973 Unknown [id number] 2.16.8 40.1.591502.3.579.2. 1973 Unknown [id number] 2.16.8 40.1.125726.3.579.2. 1973 Unknown [id number] 2.16.8 40.1.417518.3.579.2.627 1973 Unknown [id number] 2.16.8 40.1.315331.3.579.2.627 1973 Unknown [id number] 2.16.8 40.1.478700.3.579.2.627 1973 Unknown [id number] 2.16.8 40.1.929538.3.579.2.627 1973 Unknown [id number] 2.16.8 40.1.916431.3.579.2.62 1973 Unknown [id number] 2.16.8 40.1.690320.3.579.2.627 Medicaid MEDICAID . [id number] Unknown [id number] 2.16.8 40.1.970390.3.579.2.630 Unknown [id number] 2.16.8 40.1.919931.3.579.2.630 Unknown [id number] 2.16.8 40.1.950813.3.579.2.630 Unknown [id number] 2.16.8 40.1.131883.3.579.2.630 Unknown [id number] 2.16.8 40.1.386784.3.579.2.462 Unknown [id number] 2.16.8 40.1.521959.3.579.2.462 Unknown [id number] 2.16.8 40.1.751727.3.579.2.462 Unknown [id number] 2.16.8 40.1.361506.3.579.2.462 Social History Date Type Detail Facility Start: 12-16-2018 End: 11-23-2019 Tobacco smoking status NHIS Current every day smoker [facility] History of tobacco use Cigarette Smoker C [facility] Start: 11-23-2019 End: 06-03-2020 Cigarettes smoked current (pack per day) - Reported [facility] Start: 12-16-2018 End: 11-23-2019 Tobacco use and exposure [facility] Start: 11-23-2019 End: 04-02-2021 Alcohol intake Ex-drinker (finding) [facility] Start: 11-11-2019 End: 01-14-2021 History SDOH Alcohol Frequency 2 [facility] Start: 11-11-2019 End: 01-14-2021 History SDOH Alcohol Std Drinks 98 [facility] Start: 11-11-2019 End: 01-14-2021 History SDOH Social Connections Phone 5 [facility] Start: 11-11-2019 End: 01-14-2021 History SDOH Social Connections Get Together 1 [facility] Start: 11-11-2019 End: 01-14-2021 History SDOH Social Connections Druze 3 [facility] Start: 11-11-2019 End: 01-14-2021 History SDOH Physical Activity DPW 0 [facility] Start: 11-11-2019 History SDOH Education 14 [facility] Start: 02-02-2018 End: 02-19-2023 Tobacco Comment Quit smoking in 07/2017, started again end of 08/2017, quit again beginning of 11/2017 [facility] Start: 09-17-2017 Alcohol Comment rarely [facility] Start: 1973 Sex Assigned At Not on file [facility] Start: 03-03-2021 End: 01-22-2022 Exposure to SARS-CoV-2 (event) Not sure [facility] Start: 12-09-2020 Tobacco use and exposure Never used [facility] Start: 12-09-2020 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) [facility] Work Phone: History of tobacco use Chews Tobacco [facility] Start: 07-03-2020 End: 10-21-2024 Tobacco smoking status Heavy tobacco smoker (finding) [facility] Start: 1975 Sex Assigned At Male A [facility] Start: 01-30-2023 End: 07-28-2023 Alcohol intake Current drinker of alcohol (finding) [facility] Start: 06-03-2020 End: 01-30-2023 Tobacco use panel [facility] National Score (1-10 0), lower number is lower risk 86 [facility] Do you belong to any clubs or organizations such as worship groups, unions, fraternal or athletic groups, or school groups? Yes [facility] Are you now , , , , never or living with a partner? [facility] How often do you hav e 6 or more drinks on 1 occasion? Never [facility] Do you feel stress - tense, restless, nervous, or anxious, or unable to sleep at night because your mind is troubled all the time - these days [OSQ] Only a little [facility] (I/We) worried wheth er (my/our) food would run out before (I/we) got money to buy more. Sometimes true [facility] At any time in the p ast 12 months, were you homeless or living in detention [including now]? No [facility] Start: 05-01-2023 [facility] Start: 02-11-2020 Rare [facility] Start: 02-11-2020 None [facility] Start: 02-11-2020 Alone [facility] Start: 04-19-2019 Cigarettes [facility] Tobacco Nicotine Use: ST ATES CHEWS 1-2 TIMES A MONTH. Type: Oral (Snuff, Chew). [facility] Tobacco smoking status Ex-smoker (finding ) [facility] Sexual Orientation [facility] Start: 12-22-2018 Sex Male (finding) [facility] Medical Equipment Procedure Code Equipment Code Equipment Origin al Text Equipment Identifier Dates Patch Ventralex St Sepra Sorbaflex 3.2in Large [place] [employer] - [id number] Start: 04-28-2018 Lumbar Laminecto my 2 Levels Unknown 12/08/23 Unknown Unknown FDA Start: 12-08-2023 Lumbar Laminecto my 2 Levels Unknown 12/08/23 Unknown Unknown FDA Start: 12-08-2023 Lumbar Laminecto my 2 Levels Unknown 12/08/23 Unknown Unknown FDA Start: 12-08-2023 Lumbar Laminecto my 2 Levels Unknown 12/08/23 Unknown Unknown FDA Start: 12-08-2023 Lumbar Laminecto my 2 Levels Unknown 12/08/23 Unknown Unknown FDA Start: 12-08-2023 Lumbar Laminecto my 2 Levels Unknown 12/08/23 Unknown Unknown FDA Start: 12-08-2023 Lumbar Laminecto my 2 Levels Unknown 12/08/23 Unknown Unknown FDA Start: 12-08-2023 Lumbar Laminecto my 2 Levels Unknown 12/08/23 Unknown Unknown FDA Start: 12-08-2023 Lumbar Laminecto my 2 Levels Unknown 12/08/23 Unknown Unknown FDA Start: 12-08-2023 Lumbar Laminecto my 2 Levels Unknown 12/08/23 Unknown Unknown FDA Start: 12-08-2023 Lumbar Laminecto my 2 Levels Unknown 12/08/23 Unknown Unknown FDA Start: 12-08-2023 Lumbar Laminecto my 2 Levels Unknown 12/08/23 Unknown Unknown FDA Start: 12-08-2023 Lumbar Laminecto my 2 Levels Unknown 12/08/23 Unknown Unknown FDA Start: 12-08-2023 Lumbar Laminecto my 2 Levels Unknown 12/08/23 Unknown Unknown FDA Start: 12-08-2023 Lumbar Laminecto my 2 Levels Unknown 12/08/23 Unknown Unknown FDA Start: 12-08-2023 Lumbar Laminecto my 1 Level Unknown 12/24/23 Unknown Unknown FDA Start: 12-24-2023 Lumbar Laminecto my 2 Levels Unknown 12/08/23 Unknown Unknown FDA Start: 12-08-2023 Lumbar Laminecto my 2 Levels Unknown 12/08/23 Unknown Unknown FDA Start: 12-08-2023 Lumbar Laminecto my 2 Levels Unknown 12/08/23 Unknown Unknown FDA Start: 12-08-2023 Lumbar Laminecto my 1 Level Unknown 12/24/23 Unknown Unknown FDA Start: 12-24-2023 Lumbar Laminecto my 2 Levels Unknown 12/08/23 Unknown Unknown FDA Start: 12-08-2023 Lumbar Laminecto my 2 Levels Unknown 12/08/23 Unknown Unknown FDA Start: 12-08-2023 Lumbar Laminecto my 2 Levels Unknown 12/08/23 Unknown Unknown FDA Start: 12-08-2023 Lumbar Laminecto my 1 Level Unknown 12/24/23 Unknown Unknown FDA Start: 12-24-2023 Lumbar Laminecto my 2 Levels Unknown 12/08/23 Unknown Unknown FDA Start: 12-08-2023 Lumbar Laminecto my 2 Levels Unknown 12/08/23 Unknown Unknown FDA Start: 12-08-2023 Lumbar Laminecto my 2 Levels Unknown 12/08/23 Unknown Unknown FDA Start: 12-08-2023 Lumbar Laminecto my 1 Level Unknown 12/24/23 Unknown Unknown FDA Start: 12-24-2023 Lumbar Laminecto my 2 Levels Unknown 12/08/23 Unknown Unknown FDA Start: 12-08-2023 Lumbar Laminecto my 2 Levels Unknown 12/08/23 Unknown Unknown FDA Start: 12-08-2023 Lumbar Laminecto my 2 Levels Unknown 12/08/23 Unknown Unknown FDA Start: 12-08-2023 Lumbar Laminecto my 1 Level Unknown 12/24/23 Unknown Unknown FDA Start: 12-24-2023 Lumbar Laminecto my 2 Levels Unknown 12/08/23 Unknown Unknown FDA Start: 12-08-2023 Lumbar Laminecto my 2 Levels Unknown 12/08/23 Unknown Unknown FDA Start: 12-08-2023 Lumbar Laminecto my 2 Levels Unknown 12/08/23 Unknown Unknown FDA Start: 12-08-2023 Lumbar Laminecto my 1 Level Unknown 12/24/23 Unknown Unknown FDA Start: 12-24-2023 Lumbar Laminecto my 2 Levels Unknown 12/08/23 Unknown Unknown FDA Start: 12-08-2023 Lumbar Laminecto my 2 Levels Unknown 12/08/23 Unknown Unknown FDA Start: 12-08-2023 Lumbar Laminecto my 2 Levels Unknown 12/08/23 Unknown Unknown FDA Start: 12-08-2023 Lumbar Laminecto my 1 Level Unknown 12/24/23 Unknown Unknown FDA Start: 12-24-2023 Lumbar Laminecto my 2 Levels Unknown 12/08/23 Unknown Unknown FDA Start: 12-08-2023 Lumbar Laminecto my 2 Levels Unknown 12/08/23 Unknown Unknown FDA Start: 12-08-2023 Lumbar Laminecto my 2 Levels Unknown 12/08/23 Unknown Unknown FDA Start: 12-08-2023 Lumbar Laminecto my 1 Level Unknown 12/24/23 Unknown Unknown FDA Start: 12-24-2023 Lumbar Laminecto my 2 Levels Unknown 12/08/23 Unknown Unknown FDA Start: 12-08-2023 Lumbar Laminecto my 2 Levels Unknown 12/08/23 Unknown Unknown FDA Start: 12-08-2023 Lumbar Laminecto my 2 Levels Unknown 12/08/23 Unknown Unknown FDA Start: 12-08-2023 Lumbar Laminecto my 1 Level Unknown 12/24/23 Unknown Unknown FDA Start: 12-24-2023 Lumbar Laminecto my 2 Levels Unknown 12/08/23 Unknown Unknown FDA Start: 12-08-2023 Lumbar Laminecto my 2 Levels Unknown 12/08/23 Unknown Unknown FDA Start: 12-08-2023 Lumbar Laminecto my 2 Levels Unknown 12/08/23 Unknown Unknown FDA Start: 12-08-2023 Lumbar Laminecto my 1 Level Unknown 12/24/23 Unknown Unknown FDA Start: 12-24-2023 Lumbar Laminecto my 2 Levels Unknown 12/08/23 Unknown Unknown FDA Start: 12-08-2023 Lumbar Laminecto my 2 Levels Unknown 12/08/23 Unknown Unknown FDA Start: 12-08-2023 Lumbar Laminecto my 2 Levels Unknown 12/08/23 Unknown Unknown FDA Start: 12-08-2023 Lumbar Laminecto my 1 Level Unknown 12/24/23 Unknown Unknown FDA Start: 12-24-2023 Lumbar Laminecto my 2 Levels Unknown 12/08/23 Unknown Unknown FDA Start: 12-08-2023 Lumbar Laminecto my 2 Levels Unknown 12/08/23 Unknown Unknown FDA Start: 12-08-2023 Lumbar Laminecto my 2 Levels Unknown 12/08/23 Unknown Unknown FDA Start: 12-08-2023 Lumbar Laminecto my 1 Level Unknown 12/24/23 Unknown Unknown FDA Start: 12-24-2023 Functional Status Date Assessment Result Facility 11-04-2024 Functional Status Independent [facility] 11-04-2024 Functional Status Standard Safet y ID band on, Allergy Band on, Call device within reach, Bed in low position, Wheels locked [facility] 08-13-2024 Functional Status Independent [facility] 08-13-2024 Functional Status Independent [facility] 08-08-2024 Functional Status Independent [facility] 08-08-2024 Functional Status Standard Safet y ID band on, Allergy Band on, Call device within reach, Bed in low position, Wheels locked, Upper/Half-Length side-rails up, personal items within reach, Bedside Cart Locked, Visitor at bedside [facility] 01-02-2024 Functional Status Identified as high risk, Fall ID band on, Room located near nursing station, Room check performed [facility] 01-02-2024 Functional Status Min A 1 [facility] 01-02-2024 Functional Status [facility] 01-02-2024 Functional Status [facility] 01-02-2024 Functional Status [facility] 01-01-2024 Functional Status [facility] 01-01-2024 Functional Status [facility] 01-01-2024 Functional Status Done [facility] 01-01-2024 Functional Status [facility] 12-31-2023 Functional Status Done [facility] 12-31-2023 Functional Status bilateral knee high brandie lied/on [facility] 12-31-2023 Functional Status [facility] 12-31-2023 Functional Status [facility] 12-30-2023 Functional Status [facility] 12-29-2023 Functional Status [facility] 12-29-2023 Functional Status [facility] 12-29-2023 Functional Status [facility] 12-28-2023 Functional Status [facility] 12-28-2023 Functional Status [facility] 12-27-2023 Functional Status [facility] 12-27-2023 Functional Status Lunch Percent 25 [facility] 12-26-2023 Functional Status Reason SCD Rem markel/Off Patient refused [facility] 12-26-2023 Functional Status [facility] 12-26-2023 Functional Status [facility] 12-25-2023 Functional Status [facility] 12-24-2023 Functional Status Patient Identi fied Identification band [facility] 12-24-2023 Functional Status NPO Status Maintained A [facility] 12-24-2023 Functional Status [facility] 12-23-2023 Functional Status Mod I [facility] 12-23-2023 Functional Status Apartment, Single level home [facility] 12-22-2023 Functional Status Sensory Deficits None A [facility] 12-11-2023 Functional Status Room check performed [facility] 12-11-2023 Functional Status [facility] 12-11-2023 Functional [facility] 12-10-2023 Functional Status [facility] 12-09-2023 Functional Status [facility] 12-09-2023 Functional Status [facility] 12-09-2023 Functional Status [facility] 12-09-2023 Functional Status Single level home [facility] 12-09-2023 Functional Status [facility] 12-08-2023 Functional Status Valid [place] N/A [facility] 12-08-2023 Functional Status Sensory Deficits None A [facility] 12-08-2023 Functional Status Patient Identi fied Identification band, Verbal [facility] 12-08-2023 Functional Status Maintained [facility] 11-27-2023 Functional Status Sensory Deficits None A [facility] 09-19-2023 Functional Status Awake [facility] 09-19-2023 Functional Status Room check performed [facility] 08-10-2023 Functional Status Independent [facility] 04-27-2023 Functional Status ID band on, Allergy Band on, Call device within reach, Bed in low position, Wheels locked, Upper/Half-Length side-rails up, Visitor at bedside, Safety level maintained [facility] 11-19-2021 Functional Status Standard Safet y ID band on, Allergy Band on, Call device within reach, Bed in low position, Wheels locked, Upper/Half-Length side-rails up, Phone within reach, personal items within reach, Bedside Cart Locked, Safety level maintained [facility] Mental Status Date Assessment Result Facility 11-04-2024 Mental Status Orientation Oriented x 4 [facility] 11-04-2024 Mental Status [facility] 08-13-2024 Mental Status Orientation Oriented x 4 [facility] 08-13-2024 Mental Status [facility] 08-08-2024 Mental Status Orientation Oriented x 4 [facility] 08-08-2024 Mental Status [facility] 01-02-2024 Mental Status Oriented x 4 [facility] 01-02-2024 Mental Status [facility] 01-02-2024 Mental Status [facility] 01-01-2024 Mental Status [facility] 12-11-2023 Mental Status Oriented x 4 [facility] 12-10-2023 Mental Status [facility] 12-10-2023 Mental Status [facility] 12-08-2023 Mental Status [facility] 09-19-2023 Mental Status Orientation Oriented x 4 [facility] 09-19-2023 Mental Status [facility] 08-10-2023 Mental Status Oriented x 4, Follows simple commands [facility] 04-27-2023 Mental Status Oriented x 4 [facility] 11-19-2021 Mental Status Orientation Oriented x 4 [facility] Clinical Notes 04-14-2018 to 11-04-2024 Note Date & Type Note Facility 11-04-2024 Hospital Discharge instructions Patient Education 11/04/2024 15:58:12 Cellulitis Skin Infection Cellulitis Cellulitis is an infection of the deep layers of skin. A break in the skin, such as a cut or scratch, can let bacteria under the skin. If the bacteria get to deep layers of the skin, it can be serious. If not treated, cellulitis can get into the bloodstream and lymph nodes. The infection can then spread throughout the body. This causes serious illness. Cellulitis causes the affected skin to become red, swollen, warm, and sore. The reddened areas have a visible border. An open sore may leak fluid (pus). You may have a fever, chills, and pain. Cellulitis is treated with antibiotics taken for 7 to 10 days. An open sore may be cleaned and covered with cool wet gauze. Symptoms should get better 1 to 2 days after treatment is started. Make sure to take all the antibiotics for the full number of days until they are gone. Keep taking the medicine even if your symptoms go away. Home care Follow these tips: Limit the use of the part of your body with cellulitis. If the infection is on your leg, keep your leg raised while sitting. This will help to reduce swelling. Take all of the antibiotic medicine exactly as directed until it is gone. Do not miss any doses, especially during the first 7 days. Don t stop taking the medicine when your symptoms get better. Keep the affected area clean and dry. Wash your hands with soap and warm water before and after touching your skin. Anyone else who touches your skin should also wash his or her hands. Don't share towels. Follow-up care Follow up with your healthcare provider, or as advised. If your infection does not go away on the first antibiotic, your healthcare provider will prescribe a different one. When to seek medical advice Call your healthcare provider right away if any of these occur: Red areas that spread Swelling or pain that gets worse Fluid leaking from the skin (pus) Fever higher of 100.4 F (38.0 C) or higher after 2 days on antibiotics 2728-1907 [employer]). [address] [place] [address]. All rights reserved. This information is not intended as a substitute for professional medical care. Always follow your healthcare professional's instructions. Follow Up Care 11/04/2024 15:34:22 With:KARISSA SALINAS DO, Internal Medicine Address: [address] [phone] [phone] When:1-2 days [facility] 11-04-2024 Note Discharge Instructions Thank you for allowing [facility] to assist you with your healthcare needs. The following is important discharge information regarding your hospital visit. Diagnosis from Today's Visit Cellulitis What to Do Next Instructions from Your Care Team No qualifying data available. Post Acute Orders No qualifying data available. You Need to Schedule the Following Appointments Follow Up with KARISSA SALINAS DO, Internal Medicine When:Within 1-2 days Where:[address] [id number] [phone] Allergies Tape RASH Vicodin VOMITTING Medications Please ask your primary doctor or pharmacist before taking any other medication not listed, including over the counter drugs, herbal medications, vitamins and or supplements as they may interact with your home medications. What How Much When Why Instructions Last Dose New acetaminophen-hydrocodone ([place] 325- 5 mg oral tablet) 1 tab(s) by mouth Every 6 hours as needed for for pain Cellulitis Duration: 3 Days Printed Prescription Unchanged acetaminophen (Tylenol 325 mg oral capsule) 650 Milligram by mouth Every 4 hours as needed for Pain, scale 1-3 Unchanged ammonium lactate topical (ammonium lactate 12% topical cream) 1 application Topical Two (2) times a day in place of steroid Unchanged aspirin (Aspirin Low Dose 81 mg oral tablet, chewable) 1 tab(s) Chewed Once a day Duration: 90 Days TAKE 1 TABLET BY MOUTH EVERY DAY Unchanged atorvastatin (atorvastatin 40 mg oral tablet) 1 tab(s) by mouth Once a day Hyperlipidemia Duration: 100 Days Unchanged baclofen (baclofen 5 mg oral tablet) 2 tab(s) by mouth Four (4) times a day as needed for as needed for muscle spasm Lumbar radiculopathy Duration: 5 Days Unchanged cetirizine (Zyrtec 10 mg oral tablet) 1 tab(s) by mouth Once a day as needed for as needed for allergy symptoms Spider bite Duration: 90 Days Unchanged DME (DME MISCellaneous) See instructions COPD mixed type nebulizer Unchanged DME (DME MISCellaneous) See instructions Nebulizer Machine and Equipment Unchanged docusate (Colace 100 mg oral capsule) 1 cap by mouth Two (2) times a day as needed for as needed for constipation Constipation Duration: 30 Days Unchanged ergocalciferol (Vitamin D2 1.25 mg (50,000 intl units) oral capsule) 1 cap by mouth Every week Duration: 90 Days Unchanged fluticasone nasal (Flonase 50 mcg/ inh nasal spray) 1 spray(s) each nostril Two (2) times a day Seasonal allergies Duration: 30 Days Unchanged furosemide (Lasix 20 mg oral tablet) 1 tab(s) by mouth Once a day Bilateral lower extremity edema Duration: 14 Days Unchanged gabapentin (gabapentin 300 mg oral capsule) 1 cap by mouth Three (3) times a day Generalized neuropathy Duration: 30 Days Unchanged hydroCHLOROthiazide (hydroCHLOROthiazide 25 mg oral tablet) 1 tab(s) by mouth Once a day Duration: 90 Days Unchanged hyoscyamine (hyoscyamine 0.125 mg sublingual tablet) 1 tab(s) under the tongue Four (4) times a day Duration: [address] 1 tablet under the tongue and ALLOW to dissolve before meals and at bedtime Unchanged lidocaine topical (lidocaine 5% topical patch) See instructions APPLY TO AFFECTED AREA DAILY REMOVE PATCHES AFTER 12 HOURS- ONLY USES NEEDED Unchanged magnesium oxide (magnesium oxide 400 mg oral tablet) 1 tab(s) by mouth Two (2) times a day Duration: 30 Days TAKE 1 TAB BY MOUTH TWICE A DAY FOR CRAMPS INS MAX 1TAB/ DAY Unchanged meloxicam (meloxicam 15 mg oral tablet) 1 tab(s) by mouth Once a day Duration: 90 Days TAKE 1 TABLET BY MOUTH EVERY DAY NEEDED FOR PAIN WITH FOOD FOR 90 DAYS Unchanged omeprazole (omeprazole 40 mg oral delayed release capsule) 1 cap by mouth Once a day Duration: 90 Days Unchanged polyethylene glycol 3350 (polyethylene glycol 3350 powder packet) 17 gram(s) by mouth Once a day as needed for Constipation Duration: 30 Days Unchanged sucralfate (sucralfate 1 g/ 10 mL oral suspension) TAKE 10 ML BY MOUTH ONCE DAILY Unchanged tiotropium (Spiriva Respimat 1.25 mcg/ inh inhalation aerosol) 2 puff(s) by inhalation Once a day Duration: 30 Days Unchanged traZODone (traZODone 100 mg oral tablet) 2 tab(s) by mouth Daily at bedtime Duration: 90 Days Please take this list to your next doctor s visit. Bring all medications you take, including over the counter medications, herbals and other supplements with you to your doctor s visit. Patients and families are reminded to discard old lists and to update any records with all medication providers or retail pharmacies. Medication Leaflets acetaminophen and hydrocodone (a SEET a MELISSA saxena fen and nida ANGELES done) Verdrocet What is the most important information I should know about acetaminophen and hydrocodone? MISUSE OF OPIOID MEDICINE CAN CAUSE ADDICTION, OVERDOSE, OR . Keep the medication in a place where others cannot get to it. Taking opioid medicine during may cause life-threatening withdrawal symptoms in the . Fatal side effects can occur if you use opioid medicine with alcohol, or with other drugs that cause drowsiness or slow your breathing. Stop taking this medicine and call your doctor right away if you have skin redness or a rash that spreads and causes blistering and peeling. What is acetaminophen and hydrocodone? Acetaminophen and hydrocodone is a combination medicine used to relieve moderate to severe pain. Acetaminophen and hydrocodone contains an opioid medicine, and may be habit-forming. Acetaminophen and hydrocodone may also be used for purposes not listed in this medication guide. What should I discuss with my healthcare provider before taking acetaminophen and hydrocodone? You should not use this medicine if you are allergic to acetaminophen or hydrocodone, or if you have: severe asthma or breathing problems; or a blockage in your stomach or intestines. Tell your doctor if you have ever had: breathing problems, sleep apnea (breathing stops during sleep); liver disease; a drug or alcohol addiction; kidney disease; a head injury or seizures; urination problems; or problems with your thyroid, pancreas, or gallbladder. If you use opioid medicine while you are , your baby could become dependent on the drug. This can cause life-threatening withdrawal symptoms in the baby after it is born. Babies born dependent on opioids may need medical treatment for several weeks. Ask a doctor before using opioid medicine if you are . Tell your doctor if you notice severe drowsiness or slow breathing in the nursing baby. How should I take acetaminophen and hydrocodone? Follow all directions on your prescription label. Never take this medicine in larger amounts, or for longer than prescribed. An overdose can damage your liver or cause . Tell your doctor if you feel an increased urge to use more of this medicine. Never share this medicine with another person, especially someone with a history of drug abuse or addiction. MISUSE CAN CAUSE ADDICTION, OVERDOSE, OR . Keep the medicine in a place where others cannot get to it. Selling or giving away this medicine is against the law. Measure liquid medicine carefully. Use the dosing syringe provided, or use a medicine dose-measuring device (not a kitchen spoon). If you need surgery or medical tests, tell the doctor ahead of time that you are using this medicine. You should not stop using this medicine suddenly. Follow your doctor's instructions about tapering your dose. Store at room temperature away from moisture and heat. Keep track of your medicine. You should be aware if anyone is using it improperly or without a prescription. Do not keep leftover opioid medication. Just one dose can cause in someone using this medicine accidentally or improperly. Ask your pharmacist where to locate a drug take-back disposal program. If there is no take-back program, flush the unused medicine down the toilet. What happens if I miss a dose? Since this medicine is used for pain, you are not likely to miss a dose. Skip any missed dose if it is almost time for your next dose. Do not use two doses at one time. What happens if I overdose? Seek emergency medical attention or call the Poison Help line at . An overdose of this medicine can be fatal, especially in a child or other person using the medicine without a prescription. Overdose symptoms may include nausea, vomiting, sweating, severe drowsiness, pinpoint pupils, slow breathing, or no breathing. Your doctor may recommend you get naloxone (a medicine to reverse an opioid overdose) and keep it with you at all times. A person caring for you can give the naloxone if you stop breathing or don't wake up. Your caregiver must still get emergency medical help and may need to perform CPR (cardiopulmonary resuscitation) on you while waiting for help to arrive. Anyone can buy naloxone from a pharmacy or local health department. Make sure any person caring for you knows where you keep naloxone and how to use it. What should I avoid while taking acetaminophen and hydrocodone? Avoid driving or operating machinery until you know how this medicine will affect you. Dizziness or drowsiness can cause falls, accidents, or severe injuries. Do not drink alcohol. Dangerous side effects or could occur. Ask a doctor or pharmacist before using any other medicine that may contain acetaminophen (sometimes abbreviated as APAP). Taking certain medications together can lead to a fatal overdose. What are the possible side effects of acetaminophen and hydrocodone? Get emergency medical help if you have signs of an allergic reaction: hives; difficulty breathing; swelling of your face, lips, tongue, or throat. Opioid medicine can slow or stop your breathing, and may occur. A person caring for you should give naloxone and/or seek emergency medical attention if you have slow breathing with long pauses, blue colored lips, or if you are hard to wake up. In rare cases, acetaminophen may cause a severe skin reaction that can be fatal. This could occur even if you have taken acetaminophen in the past and had no reaction. Stop taking this medicine and call your doctor right away if you have skin redness or a rash that spreads and causes blistering and peeling. Call your doctor at once if you have: noisy breathing, sighing, shallow breathing, breathing that stops; a light-headed feeling, like you might pass out; liver problems--nausea, upper stomach pain, tiredness, loss of appetite, dark urine, nu-colored stools, jaundice (yellowing of the skin or eyes); low cortisol levels-- nausea, vomiting, loss of appetite, dizziness, worsening tiredness or weakness; o high levels of serotonin in the body--agitation, hallucinations, fever, sweating, shivering, fast heart rate, muscle stiffness, twitching, loss of coordination, nausea, vomiting, diarrhea. Serious breathing problems may be more likely in older adults and in those who are debilitated or have wasting syndrome or chronic breathing disorders. Common side effects include: dizziness, drowsiness, feeling tired; nausea, vomiting, stomach pain; constipation; or headache. This is not a complete list of side effects and others may occur. Call your doctor for medical advice about side effects. You may report side effects to FDA at 2-161-RAO-5359. What other drugs will affect acetaminophen and hydrocodone? You may have breathing problems or withdrawal symptoms if you start or stop taking certain other medicines. Tell your doctor if you also use an antibiotic, antifungal medication, heart or blood pressure medication, seizure medication, or medicine to treat HIV or hepatitis C. Opioid medication can interact with many other drugs and cause dangerous side effects or . Be sure your doctor knows if you also use: cold or allergy medicines, bronchodilator asthma/COPD medication, or a diuretic ('water pill'); medicines for motion sickness, irritable bowel syndrome, or overactive bladder; other opioids--opioid pain medicine or prescription cough medicine; a sedative like Valium--diazepam, alprazolam, lorazepam, Xanax, Klonopin, Versed, and others; drugs that make you sleepy or slow your breathing--a sleeping pill, muscle relaxer, medicine to treat mood disorders or mental illness; drugs that affect serotonin levels in your body--a stimulant, or medicine for depression, Parkinson's disease, migraine headaches, serious infections, or nausea and vomiting. This list is not complete. Other drugs may affect acetaminophen and hydrocodone, including prescription and krzk-uva-btqtsqx medicines, vitamins, and herbal products. Not all possible interactions are listed here. Where can I get more information? Your doctor or pharmacist can provide more information about acetaminophen and hydrocodone. Remember, keep this and all other medicines out of the reach of children, never share your medicines with others, and use this medication only for the indication prescribed. Every effort has been made to ensure that the information provided by [employer]. ('[employer]') is accurate, up-to-date, and complete, but no guarantee is made to that effect. Drug information contained herein may be time sensitive. [employer] information has been compiled for use by healthcare practitioners and consumers in the [place] and therefore [employer] does not warrant that uses outside of the [place] are appropriate, unless specifically indicated otherwise. [employer]'s drug information does not endorse drugs, diagnose patients or recommend therapy. [employer] drug information is an informational resource designed to assist licensed healthcare practitioners in caring for their patients and/or to serve consumers viewing this service as a supplement to, and not a substitute for, the expertise, skill, knowledge and judgment of healthcare practitioners. The absence of a warning for a given drug or drug combination in no way should be construed to indicate that the drug or drug combination is safe, effective or appropriate for any given patient. [employer] does not assume any responsibility for any aspect of healthcare administered with the aid of information [employer] provides. The information contained herein is not intended to cover all possible uses, directions, precautions, warnings, drug interactions, allergic reactions, or adverse effects. If you have questions about the drugs you are taking, check with your doctor, nurse or pharmacist. Copyright 7325-4626 [employer]. Version: 19.02. Revision Date: 10/06/2023. Education Materials Cellulitis Cellulitis is an infection of the deep layers of skin. A break in the skin, such as a cut or scratch, can let bacteria under the skin. If the bacteria get to deep layers of the skin, it can be serious. If not treated, cellulitis can get into the bloodstream and lymph nodes. The infection can then spread throughout the body. This causes serious illness. Cellulitis causes the affected skin to become red, swollen, warm, and sore. The reddened areas have a visible border. An open sore may leak fluid (pus). You may have a fever, chills, and pain. Cellulitis is treated with antibiotics taken for 7 to 10 days. An open sore may be cleaned and covered with cool wet gauze. Symptoms should get better 1 to 2 days after treatment is started. Make sure to take all the antibiotics for the full number of days until they are gone. Keep taking the medicine even if your symptoms go away. Home care Follow these tips: Limit the use of the part of your body with cellulitis. If the infection is on your leg, keep your leg raised while sitting. This will help to reduce swelling. Take all of the antibiotic medicine exactly as directed until it is gone. Do not miss any doses, especially during the first 7 days. Don t stop taking the medicine when your symptoms get better. Keep the affected area clean and dry. Wash your hands with soap and warm water before and after touching your skin. Anyone else who touches your skin should also wash his or her hands. Don't share towels. Follow-up care Follow up with your healthcare provider, or as advised. If your infection does not go away on the first antibiotic, your healthcare provider will prescribe a different one. When to seek medical advice Call your healthcare provider right away if any of these occur: Red areas that spread Swelling or pain that gets worse Fluid leaking from the skin (pus) Fever higher of 100.4 F (38.0 C) or higher after 2 days on antibiotics [id number] The Consumer Agent Portal (CAP). [address] [place] [address]. All rights reserved. This information is not intended as a substitute for professional medical care. Always follow your healthcare professional's instructions. Additional Information VACCINATE! IT SAVES LIVES! Members of the community who have not yet received the COVID-19 vaccine and would like to receive it can visit one of [facility] vaccine clinics. There are many vaccine clinic locations within the [facility]. For locations and available times, please visit [email or web address] [email or web address] It is important to note that some COVID mobile vaccine clinics are held outdoors and may be canceled in rainy or stormy conditions. To learn more about pediatric vaccinations (ages 5-11), we invite you to visit the [facility] webpage. https://www.[email or web address].org/pag es/5987-Pqchp-Xfycrlvestw-Frequent ka-Nntxq-Jsczocyci.html To learn more about the COVID-19 vaccine, we invite you to visit the CDC website for a list of frequently asked questions. https://www.cdc.gov/coronavirus/-ncov/vaccines/faq.html [facility] [employer] Patient Portal Access Instructions: Stay connected with your healthcare team and access your personal medical information anytime with the [employer] Patient Portal. If you would like a full copy of your medical records please contact the [facility] Medical Records Department Thursday through Thursday between 8a.m. and 4:30p.m. Please follow the directions below to access the portal: 1.Access the email account you provided upon registration to the [facility].2.Look for an invitation email from [facility].3.Open the email and access the invitation link: Accept Invitation to [facility] [employer]4.Fill in the required buchanan to create your account. Sign into www.[employer] with your username and password that you created in the above steps to stay up to date. You can then view a summary of results, a summary of your visits, and the ability to download your summaries to your computer or send the information securely to a physician. Remember that your healthcare information is confidential, so carefully consider who you will allow to register on the [employer] Patient Portal for access to your information. You can also access the [employer] Patient Portal on the [employer] brandie. Simply click on Health Records under Health Data and then click on the [employer] logo. HOW TO SAFELY DISPOSE OF PRESCRIPTION MEDICATIONS Please use one of the following methods to safely dispose of your unused medications. 1.Use a drug disposal kit: the drug disposal pouch allows you to safely discard your old and unused drugs. Ask your nurse to give you one when you are discharged.2.Visit a local take-back location: Many local pharmacies and police departments have programs that collect old and unwanted prescription drugs. Call your local pharmacy or go to http://bit.eGifter/6L2Ue3b to find one close to you.3.Make use of household items: Use cat litter or old coffee grounds to dispose medications if other options are not available. Mix your drugs with these household products, seal them in an airtight container and throw it into the garbage. Call [facility]: [phone] to be sure your drugs can be disposed of in this way. Some medicines may require a different approach.4.Never flush your medications down the toilet. IF YOU HAVE BEEN PRESCRIBED AN OPIOIDS FOR PAIN If you have been prescribed an opioid (such as hydrocodone, oxycodone or morphine), it is critical to understand the possible side effects and risks of opioid pain medications. Even when taken as directed, opioids can have several side effects including: Tolerance, meaning you might need to take more of a medication for the same pain relief. Nausea, vomiting and/or constipation. Sleepiness, dizziness, dry mouth, confusion, depression or itching. Physical dependence, meaning you have withdrawal symptoms when a medication is stopped ? this can develop within a few days. KNOW YOUR RESPONSIBILITIES It is important to know exactly how much and how often to take the opioid pain medications you are prescribed. Never take opioids in higher amounts or more often than prescribed. Do not combine opioids with alcohol or other drugs that cause drowsiness, such as benzodiazepines, also known as benzos, including diazepam and alprazolam, muscle relaxants or sleep aids. Never sell or share prescription opioids. This is illegal. Store opioids in a secure place and out of reach of others (including children, family, friends and visitors). The last page(s) of this document has been signed and retained as a CHART COPY Signatures Patient Education Materials Cellulitis Skin Infection Medication Leaflets acetaminophen and hydrocodone My discharge plan and instructions have been reviewed and explained to me and I,REJI VICTOR understand my current condition and have read and understand these discharge instructions. I have received a written copy of the plan/instructions. If I have questions, I am aware that I should contact my doctor. 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 The good news is that most people feel better in 1 to 2 weeks, and most of the rest in 1 to 2 months. Most people can remain active. People who have pain describe it differently not everyone is the same. The pain can be sharp, stabbing, shooting, aching, cramping or burning. Movement, standing, bending, lifting, sitting, or walking may worsen pain. It can be localized to one spot or area, or it can be more generalized. It can spread or radiate upwards, to the front, or go down your arms or legs (sciatica). It can cause muscle spasm. Most of the time, mechanical problems with the muscles or spine cause the pain. Mechanical problems are usually caused by an injury to the muscles or ligaments. While illness can cause back pain, it is usually not caused by a serious illness. Mechanical problems include: Physical activity such as sports, exercise, work, or normal activity Overexertion, lifting, pushing, pulling incorrectly or too aggressively Sudden twisting, bending, or stretching from an accident, or accidental movement Poor posture Stretching or moving wrong, without noticing pain at the time Poor coordination, lack of regular exercise (check with your doctor about this) Spinal disc disease or arthritis Stress Pain can also be related to , or illness like appendicitis, bladder or kidney infections, pelvic infections, and many other things. Acute back pain usually gets better in 1 to 2 weeks. Back pain related to disk disease, arthritis in the spinal joints or spinal stenosis (narrowing of the spinal canal) can become chronic and last for months or years. Unless you had a physical injury (for example, a car accident or fall) X-rays are usually not needed for the initial evaluation of back pain. If pain continues and does not respond to medical treatment, X-rays and other tests may be needed. Home care Try these home care recommendations: When in bed, try to find a position of comfort. A firm mattress is best. Try lying flat on your back with pillows under your knees. You can also try lying on your side with your knees bent up towards your chest and a pillow between your knees. At first, do not try to stretch out the sore spots. If there is a strain, it is not like the good soreness you get after exercising without an injury. In this case, stretching may make it worse. Don't sit for long periods, as in a long car ride or during other travel. This puts more stress on the lower back than standing or walking. During the first 24 to 72 hours after an acute injury or flare up of chronic back pain, apply an ice pack to the painful area for 20 minutes and then remove it for 20 minutes. Do this over a period of 60 to 90 minutes or several times a day. This will reduce swelling and pain. Wrap the ice pack in a thin towel or plastic to protect your skin. You can start with ice, then switch to heat. Heat (hot shower, hot bath, or heating pad) reduces pain and works well for muscle spasms. Heat can be applied to the painful area for 20 minutes then remove it for 20 minutes. Do this over a period of 60 to 90 minutes or several times a day. Do not sleep on a heating pad. It can lead to skin mccracken or tissue damage. You can alternate ice and heat therapy. Talk with your doctor about the best treatment for your back pain. Therapeutic massage can help relax the back muscles without stretching them. Be aware of safe lifting methods and do not lift anything without stretching first. Medicines Talk to your doctor before using medicine, especially if you have other medical problems or are taking other medicines. You may use ijwz-vnl-gvmyhfq medicine as directed on the bottle to control pain, unless another pain medicine was prescribed. If you have chronic conditions like diabetes, liver or kidney disease, stomach ulcers, or gastrointestinal bleeding, or are taking blood thinners, talk to your doctor before taking any medicine. Be careful if you are given a prescription medicines, narcotics, or medicine for muscle spasms. They can cause drowsiness, affect your coordination, reflexes, and judgement. Do not drive or operate heavy machinery. Follow-up care Follow up with your healthcare provider, or as advised. A radiologist will review any X-rays that were taken. Your provide will notify you of any new findings that may affect your care. Call 911 Call 911 if any of the following occur: Trouble breathing Confusion Very drowsy or trouble awakening Fainting or loss of consciousness Rapid or very slow heart rate Loss of bowel or bladder control When to seek medical advice Call your healthcare provider right away if any of these occur: Pain becomes worse or spreads to your legs Weakness or numbness in one or both legs Numbness in the groin or genital area [id number] The Consumer Agent Portal (CAP). [address] [place] [id number]. All rights reserved. This information is not intended as a substitute for professional medical care. Always follow your healthcare professional's instructions. Follow Up Care 08/13/2024 12:12:43 With:FALLON KAPOOR Address: [address] [place] [phone] [facility] (1) When:2-4 days Comments:Return to ED if symptoms worsen With:KARISSA SALINAS DO, Internal Medicine Address: [address] [place] [phone] When:2-4 days [facility] 08-13-2024 Emergency department Discharge summary Discharge Instructions Thank you for allowing [facility] to assist you with your healthcare needs. The following is important discharge information regarding your hospital visit. Diagnosis from Today's Visit Back pain What to Do Next Instructions from Your Care Team During today's assessment, you were prescribed muscle relaxers. Please do not combine muscle relaxers with other pain medications or additional classes of muscle relaxers as this could cause significant sedation and respiratory depression. Only take the medications prescribed as directed. Follow-up with neurosurgery by contacting their office on Thursday to be scheduled for a follow-up appointment. Return to the emergency department if symptoms were to acutely worsen or change. Do not drive, operate heavy machinery, or participate in dangerous activities while taking sedating medications. No qualifying data available. Post Acute Orders No qualifying data available. You Need to Schedule the Following Appointments Follow Up with FALLON KAPOOR When:Within 2-4 days Where:[address] [place] [phone] [facility] (1) Additional Information: Return to ED if symptoms worsen Follow Up with KARISSA SALINAS DO, Internal Medicine When:Within 2-4 days Where:[address] [place] [phone] Allergies Tape RASH Vicodin VOMITTING Medications Please ask your primary doctor or pharmacist before taking any other medication not listed, including over the counter drugs, herbal medications, vitamins and or supplements as they may interact with your home medications. What How Much When Why Instructions Last Dose New baclofen (baclofen 5 mg oral tablet) 2 tab(s) by mouth Four (4) times a day as needed for as needed for muscle spasm Duration: 5 Days Printed Prescription New methylPREDNISolone (Medrol Dosepak 4 mg oral tablet) Per Dosepak Instructions by mouth Every day Duration: 6 Days Printed Prescription Unchanged acetaminophen (Tylenol 325 mg oral capsule) 650 Milligram by mouth Every 4 hours as needed for Pain, scale 1-3 Unchanged ammonium lactate topical (ammonium lactate 12% topical cream) 1 application Topical Two (2) times a day in place of steroid Unchanged ammonium lactate topical (ammonium lactate 12% topical cream) 1 application Topical Two (2) times a day Unchanged aspirin (Aspirin Low Dose 81 mg oral tablet, chewable) 1 tab(s) Chewed Once a day Duration: 90 Days TAKE 1 TABLET BY MOUTH EVERY DAY Unchanged atorvastatin (atorvastatin 40 mg oral tablet) 1 tab(s) by mouth Once a day Hyperlipidemia Duration: 100 Days Unchanged cetirizine (Zyrtec 10 mg oral tablet) 1 tab(s) by mouth Once a day as needed for as needed for allergy symptoms Spider bite Duration: 30 Days Unchanged clotrimazole topical (clotrimazole 1% topical cream) 1 application Topical Two (2) times a day Groin rash Duration: 2 week(s) Unchanged DME (DME MISCellaneous) See instructions COPD mixed type nebulizer Unchanged DME (DME MISCellaneous) See instructions Nebulizer Machine and Equipment Unchanged docusate (Colace 100 mg oral capsule) 1 cap by mouth Two (2) times a day as needed for as needed for constipation Constipation Duration: 30 Days Unchanged ergocalciferol (Vitamin D2 1.25 mg (50,000 intl units) oral capsule) 1 cap by mouth Every week Duration: 90 Days Unchanged gabapentin (gabapentin 300 mg oral capsule) 1 cap by mouth Three (3) times a day Generalized neuropathy Duration: 30 Days Unchanged hydroCHLOROthiazide (hydroCHLOROthiazide 25 mg oral tablet) 1 tab(s) by mouth Once a day Duration: 90 Days Unchanged hyoscyamine (hyoscyamine 0.125 mg sublingual tablet) 1 tab(s) under the tongue Four (4) times a day Duration: [address] 1 tablet under the tongue and ALLOW to dissolve before meals and at bedtime Unchanged lidocaine topical (lidocaine 5% topical patch) See instructions APPLY TO AFFECTED AREA DAILY REMOVE PATCHES AFTER 12 HOURS- ONLY USES NEEDED Unchanged meloxicam (meloxicam 15 mg oral tablet) 1 tab(s) by mouth Once a day TAKE 1 TABLET BY MOUTH EVERY DAY NEEDED FOR PAIN WITH FOOD FOR 90 DAYS Unchanged omeprazole (omeprazole 40 mg oral delayed release capsule) 1 cap by mouth Once a day Duration: 90 Days Unchanged polyethylene glycol 3350 (polyethylene glycol 3350 powder packet) 17 gram(s) by mouth Once a day Unchanged sucralfate (sucralfate 1 g/ 10 mL oral suspension) TAKE 10 ML BY MOUTH ONCE DAILY Unchanged tiotropium (Spiriva Respimat 1.25 mcg/ inh inhalation aerosol) 2 puff(s) by inhalation Once a day Unchanged tiZANidine (tiZANidine 4 mg oral tablet) 1 tab(s) by mouth Every 8 hours Duration: 7 Days TAKE 1 TABLET BY MOUTH EVERY 8 HOURS NEEDED FOR MUSCLE SPASM Unchanged traZODone (traZODone 100 mg oral tablet) 2 tab(s) by mouth Daily at bedtime Duration: 90 Days Unchanged triamcinolone topical (triamcinolone 0.05% topical ointment) 1 application Topical Three (3) times a day Duration: 14 Days Please take this list to your next doctor s visit. Bring all medications you take, including over the counter medications, herbals and other supplements with you to your doctor s visit. Patients and families are reminded to discard old lists and to update any records with all medication providers or retail pharmacies. Education Materials Back Pain (Acute or Chronic) Back pain is one of the most common problems. The good news is that most people feel better in 1 to 2 weeks, and most of the rest in 1 to 2 months. Most people can remain active. People who have pain describe it differently not everyone is the same. The pain can be sharp, stabbing, shooting, aching, cramping or burning. Movement, standing, bending, lifting, sitting, or walking may worsen pain. It can be localized to one spot or area, or it can be more generalized. It can spread or radiate upwards, to the front, or go down your arms or legs (sciatica). It can cause muscle spasm. Most of the time, mechanical problems with the muscles or spine cause the pain. Mechanical problems are usually caused by an injury to the muscles or ligaments. While illness can cause back pain, it is usually not caused by a serious illness. Mechanical problems include: Physical activity such as sports, exercise, work, or normal activity Overexertion, lifting, pushing, pulling incorrectly or too aggressively Sudden twisting, bending, or stretching from an accident, or accidental movement Poor posture Stretching or moving wrong, without noticing pain at the time Poor coordination, lack of regular exercise (check with your doctor about this) Spinal disc disease or arthritis Stress Pain can also be related to , or illness like appendicitis, bladder or kidney infections, pelvic infections, and many other things. Acute back pain usually gets better in 1 to 2 weeks. Back pain related to disk disease, arthritis in the spinal joints or spinal stenosis (narrowing of the spinal canal) can become chronic and last for months or years. Unless you had a physical injury (for example, a car accident or fall) X-rays are usually not needed for the initial evaluation of back pain. If pain continues and does not respond to medical treatment, X-rays and other tests may be needed. Home care Try these home care recommendations: When in bed, try to find a position of comfort. A firm mattress is best. Try lying flat on your back with pillows under your knees. You can also try lying on your side with your knees bent up towards your chest and a pillow between your knees. At first, do not try to stretch out the sore spots. If there is a strain, it is not like the good soreness you get after exercising without an injury. In this case, stretching may make it worse. Don't sit for long periods, as in a long car ride or during other travel. This puts more stress on the lower back than standing or walking. During the first 24 to 72 hours after an acute injury or flare up of chronic back pain, apply an ice pack to the painful area for 20 minutes and then remove it for 20 minutes. Do this over a period of 60 to 90 minutes or several times a day. This will reduce swelling and pain. Wrap the ice pack in a thin towel or plastic to protect your skin. You can start with ice, then switch to heat. Heat (hot shower, hot bath, or heating pad) reduces pain and works well for muscle spasms. Heat can be applied to the painful area for 20 minutes then remove it for 20 minutes. Do this over a period of 60 to 90 minutes or several times a day. Do not sleep on a heating pad. It can lead to skin mccracken or tissue damage. You can alternate ice and heat therapy. Talk with your doctor about the best treatment for your back pain. Therapeutic massage can help relax the back muscles without stretching them. Be aware of safe lifting methods and do not lift anything without stretching first. Medicines Talk to your doctor before using medicine, especially if you have other medical problems or are taking other medicines. You may use lolm-cwz-fzebhrp medicine as directed on the bottle to control pain, unless another pain medicine was prescribed. If you have chronic conditions like diabetes, liver or kidney disease, stomach ulcers, or gastrointestinal bleeding, or are taking blood thinners, talk to your doctor before taking any medicine. Be careful if you are given a prescription medicines, narcotics, or medicine for muscle spasms. They can cause drowsiness, affect your coordination, reflexes, and judgement. Do not drive or operate heavy machinery. Follow-up care Follow up with your healthcare provider, or as advised. A radiologist will review any X-rays that were taken. Your provide will notify you of any new findings that may affect your care. Call 911 Call 911 if any of the following occur: Trouble breathing Confusion Very drowsy or trouble awakening Fainting or loss of consciousness Rapid or very slow heart rate Loss of bowel or bladder control When to seek medical advice Call your healthcare provider right away if any of these occur: Pain becomes worse or spreads to your legs Weakness or numbness in one or both legs Numbness in the groin or genital area [id number] The Consumer Agent Portal (CAP). [address] [place] [address], [place] [address]. All rights reserved. This information is not intended as a substitute for professional medical care. Always follow your healthcare professional's instructions. Additional Information VACCINATE! IT SAVES LIVES! Members of the community who have not yet received the COVID-19 vaccine and would like to receive it can visit one of [facility] vaccine clinics. There are many vaccine clinic locations within the [facility]. For locations and available times, please visit [email or web address].go [email or web address] It is important to note that some COVID mobile vaccine clinics are held outdoors and may be canceled in rainy or stormy conditions. To learn more about pediatric vaccinations (ages 5-11), we invite you to visit the [facility] webpage. https://www.[email or web address].org/pag es/4833-Mfnyv-Hvrosfkxrmy-Frequent rq-Zfitn-Rggphyndj.html To learn more about the COVID-19 vaccine, we invite you to visit the CDC website for a list of frequently asked questions. https://www.cdc.gov/coronavirus/20 19-ncov/vaccines/faq.html [facility] Patient Portal Access Instructions: Stay connected with your healthcare team and access your personal medical information anytime with the [facility] Patient Portal. If you would like a full copy of your medical records please contact the [facility] Medical Records Department Thursday through Thursday between 8a.m. and 4:30p.m. Please follow the directions below to access the portal: 1.Access the email account you provided upon registration to the hospital.2.Look for an invitation email from [facility].3.Open the email and access the invitation link: Accept Invitation to [facility]4.Fill in the required buchanan to create your account. Sign into www.[email or web address] with your username and password that you created in the above steps to stay up to date. You can then view a summary of results, a summary of your visits, and the ability to download your summaries to your computer or send the information securely to a physician. Remember that your healthcare information is confidential, so carefully consider who you will allow to register on the [facility] Patient Portal for access to your information. You can also access the [facility] Patient Portal on the [employer] brandie. Simply click on Health Records under Health Data and then click on the [facility] logo. HOW TO SAFELY DISPOSE OF PRESCRIPTION MEDICATIONS Please use one of the following methods to safely dispose of your unused medications. 1.Use a drug disposal kit: the drug disposal pouch allows you to safely discard your old and unused drugs. Ask your nurse to give you one when you are discharged.2.Visit a local take-back location: Many local pharmacies and police departments have programs that collect old and unwanted prescription drugs. Call your local pharmacy or go to http://[employer].eGifter/0M0Bb8j to find one close to you.3.Make use of household items: Use cat litter or old coffee grounds to dispose medications if other options are not available. Mix your drugs with these household products, seal them in an airtight container and throw it into the garbage. Call [facility]: [phone] to be sure your drugs can be disposed of in this way. Some medicines may require a different approach.4.Never flush your medications down the toilet. IF YOU HAVE BEEN PRESCRIBED AN OPIOIDS FOR PAIN If you have been prescribed an opioid (such as hydrocodone, oxycodone or morphine), it is critical to understand the possible side effects and risks of opioid pain medications. Even when taken as directed, opioids can have several side effects including: Tolerance, meaning you might need to take more of a medication for the same pain relief. Nausea, vomiting and/or constipation. Sleepiness, dizziness, dry mouth, confusion, depression or itching. Physical dependence, meaning you have withdrawal symptoms when a medication is stopped ? this can develop within a few days. KNOW YOUR RESPONSIBILITIES It is important to know exactly how much and how often to take the opioid pain medications you are prescribed. Never take opioids in higher amounts or more often than prescribed. Do not combine opioids with alcohol or other drugs that cause drowsiness, such as benzodiazepines, also known as benzos, including diazepam and alprazolam, muscle relaxants or sleep aids. Never sell or share prescription opioids. This is illegal. Store opioids in a secure place and out of reach of others (including children, family, friends and visitors). The last page(s) of this document has been signed and retained as a CHART COPY Signatures Patient Education Materials Back Pain (Acute or Chronic) Medication Leaflets My discharge plan and instructions have been reviewed and explained to me and I,REJI VICTOR understand my current condition and have read and understand these discharge instructions. I have received a written copy of the plan/instructions. If I have questions, I am aware that I should contact my doctor. 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 Multiplanar reformatted images are provided for review. Automated exposure control, iterative reconstruction, and/or weight based adjustment of the mA/kV was utilized to reduce the radiation dose to as low as reasonably achievable. COMPARISON: CT lumbar spine 08/08/2024, MRI lumbar spine 08/13/2024, CT abdomen-pelvis 08/10/2023 HISTORY: ORDERING SYSTEM PROVIDED HISTORY: Reason for Exam: LOW BACK PAIN AND SWELLING TO SX SITE. LAMINECTOMY IN NOVEMBER. BILATERAL LEG SWELLING abdominal pain FINDINGS: Lower Chest: Visualized lower thorax demonstrates no consolidation or pleural effusion. There are coronary arterial calcifications. Correlation with clinical findings may be useful. Organs: The liver demonstrates no biliary duct dilatation or gross mass. Prior cholecystectomy noted. The common bile duct is grossly normal in caliber. GI/Bowel: Stomach and duodenal sweep demonstrate no acute abnormality. There is mild -moderate diverticulosis of the colon without diverticulitis. Small bowel and colon are normal in caliber. Appendix is normal in caliber without gross wall thickening or inflammatory change. There is a small fat-containing periumbilical hernia. Pelvis: Urinary bladder is within normal limits. No acute abnormality of the prostate. Seminal vesicles are grossly normal in morphology. Peritoneum/Retroperitoneum: In Aorta is normal in caliber without acute abnormality. Bones/Soft Tissues: Again noted is laminectomy at L3-L5. At the laminectomy bed, there is a small hypodense fluid collection with mildly enhancing margins measuring approximately 1.7 cm AP by 0.8 cm TR by 3.3 cm cc compatible with postop seroma although abscess or CT CSF leak may not be completely excluded. IMPRESSION: 1. Status post laminectomy at L3-L5. At the laminectomy bed, there is a small hypodense fluid collection with mildly enhancing margins measuring approximately 1.7 cm AP by 0.8 cm TR by 3.3 cm CC compatible with postop seroma although abscess or CT CSF leak may not be completely excluded. 2. Coronary arterial calcifications. Correlation with clinical findings may be useful. Interpreted by: Larry Logan Preliminary Report By: Larry Logan Electronically signed By Larry Logan Dictated Date: 08/13/2024 5:40:26 PM Prelim Date: 08/13/2024 5:55:37 PM Sign Date: 08/13/2024 5:55:37 PM Ordering Provider: [facility]02-15-2025 Note* Exam Date Time Procedure Performing Provider Status 08/13/24 4:25 PM MRI Spine Lumbar w/ + w/o Contrast LARRY LOGAN MD; Auth (Verified) [id number] ORIGINAL EXAMINATION: MRI OF THE LUMBAR SPINE WITHOUT AND WITH CONTRAST 08/13/2024 4:29 pm TECHNIQUE: Multiplanar multisequence MRI of the lumbar spine was performed without and with the administration of intravenous contrast. COMPARISON: CT lumbar spine 08/08/2024 HISTORY: ORDERING SYSTEM PROVIDED HISTORY: Reason for Exam: Back pain, swelling FINDINGS: BONES/ALIGNMENT: Lumbar spine vertebral body heights are preserved. Facet joints are in gross anatomic alignment. Again noted are laminectomies at L3-L4, L4-L5, L5-S1. SPINAL CORD: The conus terminates normally. 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 SOFT TISSUES: There is no gross paraspinous mass or fluid collection. There are multiple bilateral renal cysts again noted. At the inferior L3 through superior L5 levels, there is a small fluid collection with enhancing margins at the laminectomy bed, measuring up to 1.5 cm AP by 0.7 cm TR by 3.8 cm cc, compatible with postoperative seroma. However, abscess or CSF leak cannot be totally excluded. There is postoperative dorsal enhancing midline granulation tissue at the L3 through L5 levels. There is edema with mild enhancement of the dorsal subcutaneous fat spanning the L1 through L5 levels which may be reactive, versus cellulitis. L1-L2: There is no significant disc protrusion, spinal canal stenosis or neural foraminal narrowing. L2-L3: There is no significant disc protrusion, spinal canal stenosis or neural foraminal narrowing. L3-L4: There is mild-moderate facet hypertrophy. There is laminectomy. There is mild epidural soft tissue enhancement at the posterior spinal canal with minimal mass effect of the thecal sac. There is mild disc bulge with endplate osteophytes and bilateral foraminal extension. There is no central canal stenosis. Mild bilateral neuroforaminal stenosis is present. L4-L5: There is moderate facet hypertrophy. There is minimal grade 1 retrolisthesis of L4. there is laminectomy. There is disc bulge with endplate osteophytes and bilateral foraminal extension. There is mild disc bulge and small posterior annular tear. There is mild central canal stenosis. There is enhancing epidural soft tissue at the laminectomy bed, extending to bilateral subarticular zones, circumscribing bilateral traversing L5 nerve roots, likely reactive. There are small enhancing foci of the posterior disc compatible with postoperative/reactive change. There is no evidence of abiola discitis or osteomyelitis. There is mild central canal stenosis. Moderate bilateral neural foraminal stenosis is present. L5-S1: There is moderate ligamentum flavum and facet hypertrophy. There is mild grade 1 retrolisthesis of L5. There is laminectomy. There is mild enhancement of epidural soft tissues at the laminectomy bed. There is disc bulge with endplate osteophytes and bilateral foraminal extension. There is moderate central canal stenosis. Moderate bilateral neural foraminal stenosis is present. IMPRESSION: 1. Laminectomies at the L3-L4, L4-L5, L5-S1 levels. Small fluid collection at the laminectomy bed compatible with postoperative seroma. However, abscess or CSF leak cannot be totally excluded. There is edema with mild enhancement of the dorsal subcutaneous fat spanning the L1 through L5 levels which may be reactive, versus cellulitis. 2. 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 3. Central canal and neural foraminal stenosis at the L3-L4, L4-L5, and L5-S1 levels. Interpreted by: Larry Logan Preliminary Report By: Larry Logan Electronically signed By Larry Logan Dictated Date: 08/13/2024 5:20:51 PM Prelim Date: 08/13/2024 5:40:12 PM Sign Date: 08/13/2024 5:40:12 PM Ordering Provider[id number] Discharge [facility] Patient Education 08/08/2024 16:15:11 Post Op Wound Check, General Wound Check After Surgery, No Complication Surgery involves cutting through layers of skin, fatty tissue, muscle, and sometimes bone and cartilage. Stitches or anna are used to close all layers of the wound. The stitches on the inside willdissolve in about 2 to 3 weeks. Any stitches or anna used on the outside need to be removed in about 7 to 14 days, depending on the location. It is normal to have some clear or bloody discharge on the wound covering or bandage (dressing) forthe first few days after surgery. If your wound was stitched closed, you should not have to change the dressing more than twice a day in the first few days. Bleeding or discharge requiring more frequent dressing changes can be a sign of a problem. It is normal to feel pain at the incision site. The pain decreases as the wound heals. Most of the pain and soreness from the skin incision should go away by the time the sutures or anna are removed. Soreness and pain from deeper tissues may last another week or two. Pain that continues more than a few weeks after surgery or pain that worsens anytime after surgery can be a sign of a problem, such as: Infection Separation of wound edges Collection of blood or other below the skin Home care Different types of surgery require different types of care and dressing changes. It is important tofollow all instructions and advice from your surgeon, as well as other members of your healthcare team. Wound care If you smoke, get help to quit. Smoking interferes with wound healing. Ask your healthcare providerabout ways to quit. Keep the wound clean, as directed by your healthcare provider. Change the dressing as directed. Change the dressing sooner if it becomes wet or stained with bloodor fluid from the wound. Bathe with a sponge (no shower or tub baths) for the first few days after surgery, or until there is no more drainage from the wound. Unless you received different instructions from your surgeon, youcan then shower. Don't soak the area in water (no baths or swimming) until the tape, stitches, or anna are removed and any wound opening has dried out and healed. Changing the dressing Wash your hands before changing the dressings. Carefully remove the dressing and tape; don t just yank it off. If it sticks to the wound, you may need to wet it a little to remove it, unless your healthcare provider told you not to wet it. Wash your hands again before putting on a new, clean dressing. Gently clean the wound with clean water (or saline) using gauze or a clean washcloth. Don't rub it or pick at it. Don't use soap, alcohol, hydrogen peroxide, or any other cleanser. If you were told to dry the wound before putting on a new dressing, gently pat it dry. Don't rub. Put the old dressing in a sealed plastic bag and throw it out. Don't reuse it. Wash your hands again when you are done. Types of dressings Your healthcare team will tell you what type of dressing to put on your wound. Follow your healthcare team s instructions carefully, and contact them if you have any questions. Two common types of dressings are described below. You may have one of these or another type. Dry dressing. Use dry gauze. If the wound is still draining, use a nonadherent dressing, which shouldn t stick to the wound. Wet-to-dry dressing. Wet the gauze, and squeeze out the excess water (or saline), before putting iton. Then, cover this with a dry pad. Medicines If you were given antibiotics, take them until they are used up or your healthcare provider tells you to stop. It is important to finish the antibiotics even though you feel better, to make sure the infection has cleared. You can take acetaminophen or ibuprofen for pain, unless you were given a different pain medicine to use. If you have chronic liver or kidney disease, or have ever had a stomach ulcer or gastrointestinal bleeding, or are taking blood thinner medicines, talk with your healthcare provider before using these medicines. Aspirin should never be used in anyone under 18 years of age who is ill with a fever. It may cause severe liver damage. Follow-up care Follow up with your healthcare provider, or as advised, for your next wound check or removal of your stitches, anna, or tape. If a culture was done, you will be notified if the results will affect your treatment. You can callas directed for the results. If imaging tests, such as X-rays, an ultrasound, or CT scan were done, they will be reviewed by a specialist. You will be notified of the results, especially if they affect treatment. Call 911 Call 911 if any of these occur: Trouble breathing or swallowing, wheezing Hoarse voice or trouble speaking Extreme confusion Extreme drowsiness or trouble awakening Fainting or loss of consciousness Rapid heart rate or very slow heart rate Vomiting blood, or large amounts of blood in stool Discomfort in the center of the chest that feels like pressure, squeezing, a sense of fullness, or pain. Discomfort or pain in other upper body areas, such as the back, one or both arms, neck, jaw, or stomach Stroke symptoms (spot a stroke FAST ) oF: Face drooping. One side of the face is numb or droops. oA: Arm weakness. One arm feels weak or numb. oS: Speech difficulty: Speech is slurred, or the person is unable to speak. oT: Time to call 911. Even if symptoms go away, call 911. When to seek medical advice Call your healthcare provider right away if any of the following occur: Increasing pain at the site of surgery Fever of 100.4 F (38 C) or higher, or as directed by your healthcare provider Redness around the wound Fluid, pus, or blood draining from the wound Vomiting, constipation, or diarrhea [id number] The Consumer Agent Portal (CAP). [address] [place] [address]. All rights reserved. This information is not intended as a substitute for professional medical care. Always follow yourhealthcare professional's instructions. Follow Up Care 08/08/2024 12:39:09 With:FALLON KAPOOR MD, Neurosurgery Address: [facility] [address] [place] [address]- [phone] When:2-4 days With:KARISSA SALINAS DO, Internal Medicine Address: [address] [facility] [address] [place] [address]- [phone] When:2-4 days [facility] 02-10-2025 Note Discharge Instructions Thank you for allowing [facility] to assist you with your healthcare needs. The following is importantdischarge information regarding your hospital visit. Diagnosis from Today's Visit Fluid collection at surgical site Low back pain What to Do Next Instructions from Your Care Team Please have your MRI done on 08/15 and follow up with Dr. Kapoor. Please take your [place] for pain (do not take Tylenol on top of this) and then you can continue to use Tylenol and Motrin. No qualifying data available. Post Acute Orders No qualifying data available. You Need to Schedule the Following Appointments Follow Up with FALLON KAPOOR MD, Neurosurgery When:Within 2-4 days Where:[address] [facility] [address] [place] [address]- [phone] Follow Up with KARISSA SALINAS DO, Internal Medicine When:Within 2-4 days Where:[address] [facility] [address] [place] [address] [phone] Allergies Tape RASH Vicodin VOMITTING Medications Please ask your primary doctor or pharmacist before taking any other medication not listed, including over the counter drugs, herbal medications, vitamins and or supplements as they may interact withyour home medications. What How Much When Why Instructions Last Dose New acetaminophen-hydrocodone ([place] 325- 5 mg oral tablet) 1 tab(s) by mouth Every 6 hours as needed for for pain Low back pain Duration: 3 Days Printed Prescription New ondansetron (ondansetron 4 mg oral tablet) 1 tab(s) by mouth Every 6 hours Duration: 2 Days Printed Prescription Unchanged acetaminophen (Tylenol 325 mg oral capsule) 650 Milligram by mouth Every 4 hours as needed for Pain, scale 1-3 Unchanged ammonium lactate topical (ammonium lactate 12% topical cream) 1 application Topical Two (2) times a day in place of steroid Unchanged ammonium lactate topical (ammonium lactate 12% topical cream) 1 application Topical Two (2) times a day Unchanged aspirin (Aspirin Low Dose 81 mg oral tablet, chewable) 1 tab(s) Chewed Once a day Duration: 90 Days TAKE 1 TABLET BY MOUTH EVERY DAY Unchanged atorvastatin (atorvastatin 40 mg oral tablet) 1 tab(s) by mouth Once a day Hyperlipidemia Duration: 100 Days Unchanged cetirizine (Zyrtec 10 mg oral tablet) 1 tab(s) by mouth Once a day as needed for as needed for allergy symptoms Spider bite Duration: 30 Days Unchanged clotrimazole topical (clotrimazole 1% topical cream) 1 application Topical Two (2) times a day Groin rash Duration: 2 week(s) Unchanged DME (DME MISCellaneous) See instructions COPD mixed type nebulizer Unchanged DME (DME MISCellaneous) See instructions Nebulizer Machine and Equipment Unchanged docusate (Colace 100 mg oral capsule) 1 cap by mouth Two (2) times a day as needed for as needed for constipation Constipation Duration: 30 Days Unchanged ergocalciferol (Vitamin D2 1.25 mg (50,000 intl units) oral capsule) 1 cap by mouth Every week Duration: 90 Days Unchanged gabapentin (gabapentin 300 mg oral capsule) 1 cap by mouth Three (3) times a day Generalized neuropathy Duration: 30 Days Unchanged hydroCHLOROthiazide (hydroCHLOROthiazide 25 mg oral tablet) 1 tab(s) by mouth Once a day Duration: 90 Days Unchanged hyoscyamine (hyoscyamine 0.125 mg sublingual tablet) 1 tab(s) under the tongue Four (4) times a day Duration: [address] 1 tablet under the tongue and ALLOW to dissolve before meals and at bedtime Unchanged lidocaine topical (lidocaine 5% topical patch) See instructions APPLY TO AFFECTED AREA DAILY REMOVE PATCHES AFTER 12 HOURS- ONLY USES NEEDED Unchanged magnesium oxide (magnesium oxide 400 mg oral tablet) 1 tab(s) by mouth Two (2) times a day TAKE 1 TAB BY MOUTH TWICE A DAY FOR CRAMPS INS MAX 1TAB/ DAY Unchanged meloxicam (meloxicam 15 mg oral tablet) 1 tab(s) by mouth Once a day TAKE 1 TABLET BY MOUTH EVERY DAY NEEDED FOR PAIN WITH FOOD FOR 90 DAYS Unchanged nystatin topical (nystatin 100,000 units/ g topical powder) 1 application Topical Two (2) times a day Duration: 30 Days Unchanged omeprazole (omeprazole 40 mg oral delayed release capsule) 1 cap by mouth Once a day Duration: 90 Days Unchanged polyethylene glycol 3350 (polyethylene glycol 3350 powder packet) 17 gram(s) by mouth Once a day Unchanged sucralfate (sucralfate 1 g/ 10 mL oral suspension) TAKE 10 ML BY MOUTH ONCE DAILY Unchanged tiotropium (Spiriva Respimat 1.25 mcg/ inh inhalation aerosol) 2 puff(s) by inhalation Once a day Unchanged tiZANidine (tiZANidine 4 mg oral tablet) 1 tab(s) by mouth Every 8 hours Duration: 7 Days TAKE 1 TABLET BY MOUTH EVERY 8 HOURS NEEDED FOR MUSCLE SPASM Unchanged traZODone (traZODone 100 mg oral tablet) 2 tab(s) by mouth Daily at bedtime Duration: 90 Days Unchanged triamcinolone topical (triamcinolone 0.05% topical ointment) 1 application Topical Three (3) times a day Duration: 14 Days Please take this list to your next doctor s visit. Bring all medications you take, including over the counter medications, herbals and other supplements with you to your doctor s visit. Patients and families are reminded to discard old lists and to update any records with all medication providers or retail pharmacies. Education Materials Wound Check After Surgery, No Complication Surgery involves cutting through layers of skin, fatty tissue, muscle, and sometimes bone and cartilage. Stitches or anna are used to close all layers of the wound. The stitches on the inside willdissolve in about 2 to 3 weeks. Any stitches or anna used on the outside need to be removed in about 7 to 14 days, depending on the location. It is normal to have some clear or bloody discharge on the wound covering or bandage (dressing) forthe first few days after surgery. If your wound was stitched closed, you should not have to change the dressing more than twice a day in the first few days. Bleeding or discharge requiring more frequent dressing changes can be a sign of a problem. It is normal to feel pain at the incision site. The pain decreases as the wound heals. Most of the pain and soreness from the skin incision should go away by the time the sutures or anna are removed. Soreness and pain from deeper tissues may last another week or two. Pain that continues more than a few weeks after surgery or pain that worsens anytime after surgery can be a sign of a problem, such as: Infection Separation of wound edges Collection of blood or other below the skin Home care Different types of surgery require different types of care and dressing changes. It is important tofollow all instructions and advice from your surgeon, as well as other members of your healthcare team. Wound care If you smoke, get help to quit. Smoking interferes with wound healing. Ask your healthcare providerabout ways to quit. Keep the wound clean, as directed by your healthcare provider. Change the dressing as directed. Change the dressing sooner if it becomes wet or stained with bloodor fluid from the wound. Bathe with a sponge (no shower or tub baths) for the first few days after surgery, or until there is no more drainage from the wound. Unless you received different instructions from your surgeon, youcan then shower. Don't soak the area in water (no baths or swimming) until the tape, stitches, or anna are removed and any wound opening has dried out and healed. Changing the dressing Wash your hands before changing the dressings. Carefully remove the dressing and tape; don t just yank it off. If it sticks to the wound, you may need to wet it a little to remove it, unless your healthcare provider told you not to wet it. Wash your hands again before putting on a new, clean dressing. Gently clean the wound with clean water (or saline) using gauze or a clean washcloth. Don't rub it or pick at it. Don't use soap, alcohol, hydrogen peroxide, or any other cleanser. If you were told to dry the wound before putting on a new dressing, gently pat it dry. Don't rub. Put the old dressing in a sealed plastic bag and throw it out. Don't reuse it. Wash your hands again when you are done. Types of dressings Your healthcare team will tell you what type of dressing to put on your wound. Follow your healthcare team s instructions carefully, and contact them if you have any questions. Two common types of dressings are described below. You may have one of these or another type. Dry dressing. Use dry gauze. If the wound is still draining, use a nonadherent dressing, which shouldn t stick to the wound. Wet-to-dry dressing. Wet the gauze, and squeeze out the excess water (or saline), before putting iton. Then, cover this with a dry pad. Medicines If you were given antibiotics, take them until they are used up or your healthcare provider tells you to stop. It is important to finish the antibiotics even though you feel better, to make sure the infection has cleared. You can take acetaminophen or ibuprofen for pain, unless you were given a different pain medicine to use. If you have chronic liver or kidney disease, or have ever had a stomach ulcer or gastrointestinal bleeding, or are taking blood thinner medicines, talk with your healthcare provider before using these medicines. Aspirin should never be used in anyone under 18 years of age who is ill with a fever. It may cause severe liver damage. Follow-up care Follow up with your healthcare provider, or as advised, for your next wound check or removal of your stitches, anna, or tape. If a culture was done, you will be notified if the results will affect your treatment. You can callas directed for the results. If imaging tests, such as X-rays, an ultrasound, or CT scan were done, they will be reviewed by a specialist. You will be notified of the results, especially if they affect treatment. Call 911 Call 911 if any of these occur: Trouble breathing or swallowing, wheezing Hoarse voice or trouble speaking Extreme confusion Extreme drowsiness or trouble awakening Fainting or loss of consciousness Rapid heart rate or very slow heart rate Vomiting blood, or large amounts of blood in stool Discomfort in the center of the chest that feels like pressure, squeezing, a sense of fullness, or pain. Discomfort or pain in other upper body areas, such as the back, one or both arms, neck, jaw, or stomach Stroke symptoms (spot a stroke FAST ) oF: Face drooping. One side of the face is numb or droops. oA: Arm weakness. One arm feels weak or numb. oS: Speech difficulty: Speech is slurred, or the person is unable to speak. oT: Time to call 911. Even if symptoms go away, call 911. When to seek medical advice Call your healthcare provider right away if any of the following occur: Increasing pain at the site of surgery Fever of 100.4 F (38 C) or higher, or as directed by your healthcare provider Redness around the wound Fluid, pus, or blood draining from the wound Vomiting, constipation, or diarrhea [id number] The Consumer Agent Portal (CAP). [address] [place] [address]450. All rights reserved. This information is not intended as a substitute for professional medical care. Always follow yourhealthcare professional's instructions. Additional Information VACCINATE! IT SAVES LIVES! Members of the community who have not yet received the COVID-19 vaccine and would like to receive it can visit one of [facility] vaccine clinics. There are many vaccine clinic locations within the [facility]. For locations and available times, please visit www.gettheshot.coronavirus.[place].gov/. It is important to note that some COVID mobile vaccine clinics are held outdoors and may be canceled in rainy or stormy conditions. To learn more about pediatric vaccinations (ages 5-11), we invite you to visit the [facility] webpage. [email or web address].[email or web address]/pages/6283-[email or web address]-[email or web address]-Cfblp-[email or web address] stions.htmlTo learn more about the COVID-19 vaccine, we invite you to visit the CDC website for a list of frequently asked questions. https://www.cdc.gov/coronavirus/2019-ncov/vaccines/faq.html [facility] [employer] Patient Portal Access Instructions: Stay connected with your healthcare team and access your personal medical information anytime with the [employer] [employer] Patient Portal. If you would like a full copy of your medical records please contact the [facility] Medical Records Department Thursday through Thursday between 8a.m. and 4:30p.m. Please follow the directions below to access the portal: 1.Access the email account you provided upon registration to the hospital.2.Look for an invitation email from [facility].3.Open the email and access the invitation link: Accept Invitation to [facility]4.Fill in the required buchanan to create your account. Sign into www.[employer] with your username and password that you created in the above steps to stay up to date. You can then view a summary of results, a summary of your visits, and the ability to download your summaries to your computer or send the information securely to a physician. Remember that your healthcare information is confidential, so carefully consider who you will allow to register on the [employer] Patient Portal for access to your information. You can also access the [employer] [employer] Patient Portal on the [employer]. Simply click on Health Records under [employer] and then click on the [employer]avalu logo. HOW TO SAFELY DISPOSE OF PRESCRIPTION MEDICATIONS Please use one of the following methods to safely dispose of your unused medications. 1.Use a drug disposal kit: the drug disposal pouch allows you to safely discard your old and unuseddrugs. Ask your nurse to give you one when you are discharged.2.Visit a local take-back location: Many local pharmacies and police departments have programs that collect old and unwanted prescriptiondrugs. Call your local pharmacy or go to http://[employer].eGifter/1R0Rn7j to find one close to you.3.Make use of household items: Use cat litter or old coffee grounds to dispose medications if other options arenot available. Mix your drugs with these household products, seal them in an airtight container andthrow it into the garbage. Call [facility]: [phone] to be sure your drugs can be disposed of in this way. Some medicines may require a different approach.4.Never flush your medications down the toilet. IF YOU HAVE BEEN PRESCRIBED AN OPIOIDS FOR PAIN If you have been prescribed an opioid (such as hydrocodone, oxycodone or morphine), it is critical to understand the possible side effects and risks of opioid pain medications. Even when taken as directed, opioids can have several side effects including: Tolerance, meaning you might need to take more of a medication for the same pain relief. Nausea, vomiting and/or constipation. Sleepiness, dizziness, dry mouth, confusion, depression or itching. Physical dependence, meaning you have withdrawal symptoms when a medication is stopped ? this can develop within a few days. KNOW YOUR RESPONSIBILITIES It is important to know exactly how much and how often to take the opioid pain medications you are prescribed. Never take opioids in higher amounts or more often than prescribed. Do not combine opioids with alcohol or other drugs that cause drowsiness, such as benzodiazepines, also known as benzos,including diazepam and alprazolam, muscle relaxants or sleep aids. Never sell or share prescriptionopioids. This is illegal. Store opioids in a secure place and out of reach of others (including children, family, friends and visitors). The last page(s) of this document has been signed and retained as a CHART COPY Signatures Patient Education Materials Post Op Wound Check, General Medication Leaflets My discharge plan and instructions have been reviewed and explained to me and I,REJI VICTOR understand my current condition and have read and understand these discharge instructions. I have received a written copy of the plan/instructions. If I have questions, I am aware that I should contactmy doctor. 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 This exam was performed according to our departmental dose optimization program, and includes the following measures where applicable: automated exposure control, adjustment of the mAs and/or kVp according to patient size and/or exam, and an iterative reconstruction algorithm. FINDINGS: There are 5 lumbar type vertebral bodies counting from the last visible rib. Alignment is within normal limits. There is an L4-L5 laminectomy. There is a small fluid collection in the laminectomy bed, not well distinguished in the absence of intravenous contrast, about 14 mm in maximum diameter. There is superficial subcutaneous fluid, incompletely visualized here. The individual vertebral bodies are intact. There is mild scattered disc space narrowing. IMPRESSION: Small fluid collection in the laminectomy, about 14 mm in thickness, possibly pseudomeningocele. Subcutaneous fluid is incompletely visualized here, and CSF leak is not excluded. Interpreted by: Kristen Bowden MD Preliminary Report By: Kristen Bowden MD Electronically signed By Kristen Bowden MD Dictated Date: 08/08/2024 3:29:08 PM Prelim Date: 08/08/2024 3:38:23 PM Sign Date: 08/08/2024 3:38:23 PM Ordering Provider: ERICA HOWELL [facility]2024 Note ORIGINAL EXAMINATION: ULTRASOUND OF THE KIDNEYS AND BLADDER 04/15/2024 12:06 pm COMPARISON: CT abdomen/pelvis 08/10/2023, renal ultrasound 08/26/2023 HISTORY: ORDERING SYSTEM PROVIDED HISTORY: Reason for Exam: RENAL CYST All images are recorded and archived. FINDINGS: The right kidney measures 10.2 cm in length and the left kidney measures 9.7 cm in length. No pelvicaliectasis. Normal cortical thickness and echogenicity bilaterally. Redemonstration of 9 mm nonobstructive right renal calculus. Well-defined hyperdense lateral right midpole renal lesion up to 8 mm, similar in appearance to the prior ultrasound. Similar right superior pole renal cyst up to 1.4 cm. Redemonstration of nonobstructive left renal calculus up to 8 mm. Redemonstration of left renal cysts, most notably with a 2.9 cm left renal sinus cyst, 2.7 cm on the prior CT on my re-measurement. The urinary bladder is mildly under distended; within the confines, unremarkable in appearance. No significant postvoid residual. IMPRESSION: Redemonstration of nonobstructive right nephrolithiasis. Similar hyperdense right mid to lower pole renal lesion in keeping with a hyperdense cyst or less likely angiomyolipoma. Redemonstration of bilateral renal cysts. I have personally reviewed the images of this examination and agree with the resident's findings and interpretation. Interpreted by: Yogi Durant DO Preliminary Report By: Guanakito Nicole Electronically signed By Yogi Durant DO Dictated Date: 04/15/2024 1:40:42 PM Prelim Date: 04/15/2024 1:59:02 PM Sign Date: 04/15/2024 1:59:02 PM Ordering Provider: NATY [facility]09-25-2024 Note ORIGINAL EXAMINATION: ONE XRAY VIEW OF THE CHEST 03/23/2024 5:49 pm COMPARISON: Radiograph of the chest November 27, 2023 HISTORY: ORDERING SYSTEM PROVIDED HISTORY: Reason for Exam: chest pain FINDINGS: Cardiomediastinal silhouette is unchanged in size. Right costophrenic angle is sharp. Left costophrenic angle is unchanged. No radiographic pneumothorax. Bilateral lower lung field and bibasilar streaky opacities and atelectasis. Osseous structures grossly unchanged. IMPRESSION: Bilateral lower lung field and bibasilar streaky opacities and atelectasis. Interpreted by: Devyn Pedraza Preliminary Report By: Devyn Pedraza Electronically signed By Devyn Pedraza Dictated Date: 03/23/2024 5:50:09 PM Prelim Date: 03/23/2024 5:51:25 PM Sign Date: 03/23/2024 5:51:25 PM Ordering Provider: BROOKLYNN [facility]09-25-2024 NoteSINUS RHYTHM LEFT AXIS DEVIATION NONSPECIFIC T ABNORMALITIES, LATERAL LEADS Electronic Signature: BROOKLYNN ROSA MD 03/23/2024 17:41:[address] [place] [address] 08-28-2024 Note ORIGINAL EXAMINATION: MRI OF THE LUMBAR SPINE WITHOUT AND WITH CONTRAST 02/24/2024 9:42 am TECHNIQUE: Multiplanar multisequence MRI of the lumbar spine was performed without and with the administration of intravenous contrast. COMPARISON: None. HISTORY: ORDERING SYSTEM PROVIDED HISTORY: Reason for Exam: 2 back surgeries in November. Now with increased swelling at incision site. Also has worsening LLE pain FINDINGS: Status post laminectomy involving L4 and L5. There is 4 cm by 2.4 cm by 5.8 cm (AP by transverse by craniocaudal) extra thecal fluid at the operative site now exerting less mass effect upon the posterior thecal sac than on the comparison examination. There is enhancement of the surgical bed within normal limits. The previously demonstrated drainage catheter is not identified on today's examination. There is subtle central clumping of the nerve roots at L4. No herniated disc or significant canal or foraminal narrowing. The alignment is anatomic. RECOMMENDATIONS: Postoperative changes with extradural fluid collection again demonstrated. On today's examination there is less mass effect on the posterior thecal sac. No interval increased epidural collection or herniated disc. Interpreted by: Kwaku Martinez Preliminary Report By: Kwaku Martinez Electronically signed By Kwaku Martinez Dictated Date: 02/24/2024 9:48:38 AM Prelim Date: 02/24/2024 10:02:56 AM Sign Date: 02/24/2024 10:02:56 AM Ordering Provider: [facility]07-26-2024 Telephone encounter Note* Telephone Encounter - Unique Wolff - 01/22/2024 4:15 PM EDT No Show Documentation Reji Victor no showed for an appointment on [id number] with Yue Yousif MD at [facility]. He was scheduled for 820. I called and spoke with the patient regarding his missed appointment. Reji stated the reason that he missed his appointment was because forgot about appointment . Resources discussed/offered to patient: LM No show determined to be fault of patient: Yes This is the patients first no show in the last 12 months. Patient was rescheduled for no. Letter mailed : Yes Is this the Third or Fourth No Show? No Unique Wolff January 22, 2024 4:16 PM [facility]07-26-2024 Miscellaneous Notes* Telephone Encounter - Unique Woflf - 01/22/2024 4:15 PM EDT No Show Documentation Reji Victor no showed for an appointment on [id number] with Yue Yousif MD at [facility]. He was scheduled for 820. I called and spoke with the patient regarding his missed appointment. Reji stated the reason that he missed his appointment was because forgot about appointment . Resources discussed/offered to patient: LM No show determined to be fault of patient: Yes This is the patients first no show in the last 12 months. Patient was rescheduled for no. Letter mailed : Yes Is this the Third or Fourth No Show? No Unique Wolff January 22, 2024 4:16 PM [facility] Nurse Progress note Pt to be discharged today. States unable to locate clothes yesterday? Pt sent from 5S to OR. He did not remove clothes to just prior to going to OR. Unable to locate in room 2710 after OR. Contacted 5S. No Clothes on floor. Howie Pascal CNP Knew his clothes from floor. She also checked. 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 brought in other shorts and t shirt, but only pair of tennis shoes pt had. C. Charton RN gave him pair of shoes to wear home. Tony Diggs RN Digitally Signed by BANDAR Diggs on 01/02/2024 01:56 PM [id number] Discharge instructions Patient Education 01/02/2024 11:32:03 Incision Care, Adult, [id number] Incision Care, Adult An incision is a cut that a doctor makes in your skin for surgery (for a procedure). Most times, these cuts are closed after surgery. Your cut from surgery may be closed with stitches (sutures), anna, skin glue, or skin tape (adhesive strips). You may need to return to your doctor to have stitches or anna taken out. This may happen many days or many weeks after your surgery. The cut needs to be well cared for so it does not get infected. How to care for your cut Cut care Follow instructions from your doctor about how to take care of your cut. Make sure you: ?Wash your hands with soap and water before you change your bandage (dressing). If you cannot use soap and water, use hand thaw shed heater tender. ?Change your bandage as told by your doctor. ?Leave stitches, skin glue, or skin tape in place. They may need to stay in place for 2 weeks or longer. If tape strips get loose and curl up, you may trim the loose edges. Do not remove tape strips completely unless your doctor says it is okay. Check your cut area every day for signs of infection. Check for: ?More redness, swelling, or pain. ?More fluid or blood. ?Warmth. ?Pus or a bad smell. Ask your doctor how to clean the cut. This may include: ?Using mild soap and water. ?Using a clean towel to pat the cut dry after you clean it. ?Putting a cream or ointment on the cut. Do this only as told by your doctor. ?Covering the cut with a clean bandage. Ask your doctor when you can leave the cut uncovered. Do not take baths, swim, or use a hot tub until your doctor says it is okay. Ask your doctor if youcan take showers. You may only be allowed to take sponge baths for bathing. Medicines If you were prescribed an antibiotic medicine, cream, or ointment, take the antibiotic or put it onthe cut as told by your doctor. Do not stop taking or putting on the antibiotic even if your condition gets better. Take bcsy-fve-wkjjkch and prescription medicines only as told by your doctor. General instructions Limit movement around your cut. This helps healing. ?Avoid straining, lifting, or exercise for the first month, or for as long as told by your doctor. ?Follow instructions from your doctor about going back to your normal activities. ?Ask your doctor what activities are safe. Protect your cut from the sun when you are outside for the first 6 months, or for as long as told by your doctor. Put on sunscreen around the scar or cover up the scar. Keep all follow-up visits as told by your doctor. This is important. Contact a doctor if: Your have more redness, swelling, or pain around the cut. You have more fluid or blood coming from the cut. Your cut feels warm to the touch. You have pus or a bad smell coming from the cut. You have a fever or shaking chills. You feel sick to your stomach (nauseous) or you throw up (vomit). You are dizzy. Your stitches or anna come undone. Get help right away if: You have a red streak coming from your cut. Your cut bleeds through the bandage and the bleeding does not stop with gentle pressure. The edges of your cut open up and separate. You have very bad (severe) pain. You have a rash. You are confused. You pass out (faint). You have trouble breathing and you have a fast heartbeat. This information is not intended to replace advice given to you by your health care provider. Make sure you discuss any questions you have with your health care provider. Document Released: 09/06/2012 Document Revised: 11/02/2017 Document Reviewed: 02/20/2017 [employer] Patient Education 2020 [employer] Follow Up Care 12/22/2023 12:06:15 With:ORIN BRADFORD, Neurosurgery Address: [address] [place] [address] [place] [address]- [phone] When:01/06/2024 09:45:00 [facility] 07-06-2024 Note. MICRO - Microbiology PROCEDURE: Culture Anaerobe [*1] SOURCE: Cerebrospinal Fluid BODY SITE: COLLECTED DATE/TIME: 12/28/2023 23:17 EDT RECEIVED DATE/TIME: 12/28/2023 23:44 EDT START DATE/TIME: 12/28/2023 23:45 EDT FREE TEXT SOURCE: FINAL REPORTS Final Report [] Verified Date/Time/Personnel: 01/02/2024 13:16 EDT Staphylococcus epidermidis From liquid media only No anaerobes isolated at 5 days. PRELIMINARY REPORTS Preliminary Report [] Verified Date/Time/Personnel: 01/01/2024 11:17 EDT Staphylococcus epidermidis From liquid media only KE to follow Preliminary Report [] Verified Date/Time/Personnel: 12/31/2023 12:56 EDT Culture results pending. Preliminary Report [] Verified Date/Time/Personnel: 12/29/2023 08:04 EDT No growth to date SUSCEPTIBILITY RESULTS Staphylococcus epidermidis Antibiotic KE Dilut KE Inter Ampicillin/ <=8/4 Susceptible Sulbactam Azithromycin <=2 Susceptible Cefepime <=4 Susceptible Cefotaxime <=8 Susceptible Ceftriaxone <=4 Susceptible ID Panel Not Not Applicable Applicable Imipenem <=4 Susceptible Meropenem <=2 Susceptible Oxacillin <=0.25 Susceptible Penicillin <=0.03 Susceptible Piperacillin/ <=8 Susceptible Tazobactam Vancomycin 1 Susceptible Performing Locations *1: This test was performed at: [facility], [address] [place] [address], [id number] , [facility] ([place])01-02-2024 Note Discharge Instructions Thank you for allowing [facility] to assist you with your healthcare needs. The following is importantdischarge information regarding your hospital visit. Your Care Team KARISSA SALINAS DO Your Diagnosis CSF leak S/P lumbar laminectomy What to do next Instructions From Your Doctor Your follow up appointment will be with Dr. Kapoor's Nurse Practitioner, Orin Bradford CNP. Wear back brace when out of bed. Take stool softener, and do not strain when moving your bowels. No aspirin, multivitamins, or NSAIDs (no Aleve, Motrin, Ibuprofen, Naproxen, etc.) until cleared byneurosurgeon. No lifting more than 10 pounds. No Strenuous activity. Avoid bending/twisting at the waist. No driving for at least 2 weeks; No driving while taking narcotics or muscle relaxants. Keep surgical incision clean and dry at all times until healed (about 2 weeks postoperatively). Maintain surgical dressing over incision for 7 days postoperatively as it is embedded with an antibiotic. After 1 week postop, remove dressing and begin to change daily using dry sterile gauze for about 7-10 days. May leave open to air once fulled healed. Okay to shower, but cover surgical incision with watertight dressing until healed (about 2 weeks postoperatively) No soaking incision site for 6 weeks postoperatively (No tub baths, hot tubs, saunas, swimming, etc.) If surgical incision site becomes red, swollen, painful, opens and/or drainage around site or if you develop a fever- Contact neurosurgery office immediately. Scheduled Follow-Up Appointments Appointment Type When With Where Contact Information StatusSL PSG (Polysomnograph) 01/06/2024 [facility] [address] [place] [address]- Confirmed PC OV Lab Check 01/14/2024 07:20 AM EDT [facility] Confirmed US Renal 04/12/2024 10:00 AM EDT Radiology [phone] Confirmed PC OV Follow Up 04/18/2024 11:00 AM EDT [facility] Confirmed Follow Up Appointments Follow Up with ORIN BRADFORD, Neurosurgery When:01/06/2024 09:45 AM EDT Where:[address] [facility] [address] [place] [address]- [phone] The Following Activity and Diet Have Been Ordered for You No qualifying data available. No qualifying data available. The Following Equipment Has Been Ordered for You No qualifying data available. The Following Treatments Have Been Ordered for You Discharge Labs No qualifying data available. Discharge Radiology No qualifying data available. Other Therapies No qualifying data available. Post Acute Orders No qualifying data available. Someone Will Contact You Regarding These Home Health Referrals No home referrals have been ordered for you. No one will call you. Allergies Tape RASH Vicodin VOMITTING Medications Please ask your primary doctor or pharmacist before taking any other medication not listed, including over the counter drugs, herbal medications, vitamins and or supplements as they may interact withyour home medications. What How Much When Why Instructions Last Dose New acetaminophen (Tylenol 325 mg oral capsule) 650 Milligram by mouth Every 4 hours as needed for Pain, scale 1-3 New acetaminophen-oxyCODONE (acetaminophen-oxyCODONE 325 mg-5 mg oral tablet) See instructions CSF leak S/P lumbar laminectomy 1 tab(s) Oral q6h PRN pain 4-6. 2 tabs Oral q6h PRN pain 7-10. not to exceed 6 tablets/ day., As needed for for pain Pickup at [facility]/pharmacy #[id number] New polyethylene glycol 3350 by mouth Once a day New tiZANidine (tiZANidine 4 mg oral tablet) 1 tab(s) by mouth Every 8 hours as needed for NEEDED FOR MUSCLE SPASM Pickup at [facility]/pharmacy #[id number] Changed DME (DME MISCellaneous) See instructions Nebulizer Machine and Equipment Changed DME (DME MISCellaneous) See instructions COPD mixed type nebulizer Unchanged albuterol (Albuterol (Eqv-Ventolin HFA) 90 mcg/ inh inhalation aerosol) 1 puff(s) by inhalation Four (4) times a day as needed for NEEDED FOR WHEEZING Duration: 30 Days Unchanged atorvastatin (atorvastatin 40 mg oral tablet) 1 tab(s) by mouth Once a day Hyperlipidemia Unchanged docusate (Colace 100 mg oral capsule) 1 cap by mouth Two (2) times a day as needed for as needed for constipation Constipation Unchanged ergocalciferol (ergocalciferol 50,000 intl units (1.25 mg) oral capsule) 1 cap by mouth Every week ON THU Unchanged gabapentin (gabapentin 300 mg oral capsule) 1 cap by mouth Three (3) times a day Unchanged hydroCHLOROthiazide (hydroCHLOROthiazide 25 mg oral tablet) 1 tab(s) by mouth Once a day Unchanged hyoscyamine (hyoscyamine 0.125 mg sublingual tablet) 1 tab(s) under the tongue Four (4) times a day Duration: [address] 1 tablet under the tongue and ALLOW to dissolve before meals and at bedtime Unchanged lidocaine topical (lidocaine 5% topical patch) See instructions APPLY TO AFFECTED AREA DAILY REMOVE PATCHES AFTER 12 HOURS- ONLY USES NEEDED Unchanged metFORMIN (metFORMIN 500 mg oral tablet (IR)) 1 tab(s) by mouth Once a day Prediabetes Unchanged omeprazole (omeprazole 40 mg oral delayed release capsule) 1 cap by mouth Once a day Duration: 90 Days Unchanged tiotropium (Spiriva Respimat 1.25 mcg/ inh inhalation aerosol) 2 puff(s) by inhalation Once a day Unchanged traZODone (traZODone 100 mg oral tablet) 2 tab(s) by mouth Daily at bedtime Duration: 90 Days Pharmacy Information [facility]/pharmacy #[id number]: [address], [place] [id number] [phone] Please take this list to your next doctor s visit. Bring all medications you take, including over the counter medications, herbals and other supplements with you to your doctor s visit. Patients and families are reminded to discard old lists and to update any records with all medication providers or retail pharmacies. Medication Leaflets acetaminophen and oxycodone (a SEET a MIN oh fen and OX i KOE done) Endocet 10/325, Endocet 2.5/325, Endocet 5/325, Endocet 7.5/325, Nalocet, Percocet, Prolate What is the most important information I should know about acetaminophen and oxycodone? MISUSE OF OPIOID MEDICINE CAN CAUSE ADDICTION, OVERDOSE, OR . Keep the medication in a place where others cannot get to it. Taking opioid medicine during may cause life-threatening withdrawal symptoms in the . Fatal side effects can occur if you use opioid medicine with alcohol, or with other drugs that cause drowsiness or slow your breathing. Stop taking this medicine and call your doctor right away if you have skin redness or a rash that spreads and causes blistering and peeling. What is acetaminophen and oxycodone? Acetaminophen and oxycodone is a combination medicine used to relieve moderate to severe pain. Acetaminophen and oxycodone contains an opioide medicine and may be habit-forming. Acetaminophen and oxycodone may also be used for purposes not listed in this medication guide. What should I discuss with my healthcare provider before taking acetaminophen and oxycodone? You should not use this medicine if you are allergic to acetaminophen or oxycodone, or if you have: severe asthma or breathing problems; or a blockage in your stomach or intestines. Tell your doctor if you have ever had: breathing problems, sleep apnea; liver disease; a drug or alcohol addiction; kidney disease; a head injury or seizures; urination problems; or problems with your thyroid, pancreas, or gallbladder. If you use opioid medicine while you are , your baby could become dependent on the drug. This can cause life-threatening withdrawal symptoms in the baby after it is born. Babies born dependent on opioids may need medical treatment for several weeks. Ask a doctor before using opioid medicine if you are . Tell your doctor if you notice severe drowsiness or slow breathing in the nursing baby. How should I take acetaminophen and oxycodone? Follow all directions on your prescription label. Never take this medicine in larger amounts, or for longer than prescribed. An overdose can damage your liver or cause . Tell your doctor if you feel an increased urge to use more of this medicine. Never share opioid medicine with another person, especially someone with a history of drug abuse oraddiction. MISUSE CAN CAUSE ADDICTION, OVERDOSE, OR . Keep the medicine in a place where others cannot get to it. Selling or giving away opioid medicine is against the law. Measure liquid medicine carefully. Use the dosing syringe provided, or use a medicine dose-measuring device (not a kitchen spoon). If you need surgery or medical tests, tell the doctor ahead of time that you are using this medicine. You should not stop using this medicine suddenly. Follow your doctor's instructions about tapering your dose. Store at room temperature away from moisture and heat. Keep track of your medicine. You should be aware if anyone is using it improperly or without a prescription. Do not keep leftover opioid medication. Just one dose can cause in someone using this medicine accidentally or improperly. Ask your pharmacist where to locate a drug take-back disposal program.If there is no take-back program, flush the unused medicine down the toilet. What happens if I miss a dose? Since this medicine is used for pain, you are not likely to miss a dose. Skip any missed dose if itis almost time for your next dose. Do not use two doses at one time. What happens if I overdose? Seek emergency medical attention or call the Poison Help line at . An overdose of this medicine can be fatal, especially in a child or other person using the medicine without a prescription. Overdose symptoms may include nausea, vomiting, sweating, severe drowsiness, pinpoint pupils, slow breathing, or no breathing. Your doctor may recommend you get naloxone (a medicine to reverse an opioid overdose) and keep it with you at all times. A person caring for you can give the naloxone if you stop breathing or don't wake up. Your caregiver must still get emergency medical help and may need to perform CPR (cardiopulmonary resuscitation) on you while waiting for help to arrive. Anyone can buy naloxone from a pharmacy or local health department. Make sure any person caring foryou knows where you keep naloxone and how to use it. What should I avoid while taking acetaminophen and oxycodone? Avoid driving or operating machinery until you know how this medicine will affect you. Dizziness ordrowsiness can cause falls, accidents, or severe injuries. Do not drink alcohol. Dangerous side effects or could occur. Ask a doctor or pharmacist before using any other medicine that may contain acetaminophen (sometimes abbreviated as APAP). Taking certain medications together can lead to a fatal overdose. What are the possible side effects of acetaminophen and oxycodone? Get emergency medical help if you have signs of an allergic reaction: hives; difficulty breathing; swelling of your face, lips, tongue, or throat. Opioid medicine can slow or stop your breathing, and may occur. A person caring for you should give naloxone and/or seek emergency medical attention if you have slow breathing with long pauses,blue colored lips, or if you are hard to wake up. In rare cases, acetaminophen may cause a severe skin reaction that can be fatal. This could occur even if you have taken acetaminophen in the past and had no reaction. Stop taking this medicine and call your doctor right away if you have skin redness or a rash that spreads and causes blistering andpeeling. Call your doctor at once if you have: noisy breathing, sighing, shallow breathing, breathing that stops; a light-headed feeling, like you might pass out; weakness, tiredness, fever, unusual bruising or bleeding; confusion, unusual thoughts or behavior; problems with urination; liver problems--nausea, upper stomach pain, tiredness, loss of appetite, dark urine, nu-colored stools, jaundice (yellowing of the skin or eyes); low cortisol levels-- nausea, vomiting, loss of appetite, dizziness, worsening tiredness or weakness; or high levels of serotonin in the body--agitation, hallucinations, fever, sweating, shivering, fast heart rate, muscle stiffness, twitching, loss of coordination, nausea, vomiting, diarrhea. Serious breathing problems may be more likely in older adults and in those who are debilitated or have wasting syndrome or chronic breathing disorders. Common side effects include: dizziness, drowsiness, feeling tired; feelings of extreme happiness or sadness; nausea, vomiting, stomach pain; constipation; or headache. This is not a complete list of side effects and others may occur. Call your doctor for medical advice about side effects. You may report side effects to FDA at 6-674-USU-2400. What other drugs will affect acetaminophen and oxycodone? You may have breathing problems or withdrawal symptoms if you start or stop taking certain other medicines. Tell your doctor if you also use an antibiotic, antifungal medication, heart or blood pressure medication, seizure medication, or medicine to treat HIV or hepatitis C. Opioid medication can interact with many other drugs and cause dangerous side effects or . Be sure your doctor knows if you also use: cold or allergy medicines, bronchodilator asthma/COPD medication, or a diuretic ('water pill'); medicines for motion sickness, irritable bowel syndrome, or overactive bladder; other opioids--opioid pain medicine or prescription cough medicine; a sedative like Valium--diazepam, alprazolam, lorazepam, Xanax, Klonopin, Versed, and others; drugs that make you sleepy or slow your breathing--a sleeping pill, muscle relaxer, medicine to treat mood disorders or mental illness; drugs that affect serotonin levels in your body--a stimulant, or medicine for depression, Parkinson's disease, migraine headaches, serious infections, or nausea and vomiting. This list is not complete. Other drugs may affect acetaminophen and oxycodone, including prescription and vyge-mim-vmeuotq medicines, vitamins, and herbal products. Not all possible interactions are listed here. Where can I get more information? Your doctor or pharmacist can provide more information about acetaminophen and oxycodone. Remember, keep this and all other medicines out of the reach of children, never share your medicines with others, and use this medication only for the indication prescribed. Every effort has been made to ensure that the information provided by [employer]') is accurate, up-to-date, and complete, but no guarantee is made to that effect. Drug information contained herein may be time sensitive. [employer] information has been compiled for use by healthcare practitioners and consumers in the [place] and therefore [employer] does not warrant that uses outside of the [place] are appropriate, unless specifically indicated otherwise. [employer] drug information does not endorse drugs, diagnose patients or recommend therapy. [employer] drug information isan informational resource designed to assist licensed healthcare practitioners in caring for their p atients and/or to serve consumers viewing this service as a supplement to, and not a substitute for, the expertise, skill, knowledge and judgment of healthcare practitioners. The absence of a warningfor a given drug or drug combination in no way should be construed to indicate that the drug or drug combination is safe, effective or appropriate for any given patient. [employer] does not assume any responsibility for any aspect of healthcare administered with the aid of information [employer] provides. The information contained herein is not intended to cover all possible uses, directions, precautions, warnings, drug interactions, allergic reactions, or adverse effects. If you have questions about the drugs you are taking, check with your doctor, nurse or pharmacist. Copyright 5292-2927 [employer]. Version: 22.01. Revision Date: 01/29/2023. Education Materials Incision Care, Adult An incision is a cut that a doctor makes in your skin for surgery (for a procedure). Most times, these cuts are closed after surgery. Your cut from surgery may be closed with stitches (sutures), anna, skin glue, or skin tape (adhesive strips). You may need to return to your doctor to have stitches or anna taken out. This may happen many days or many weeks after your surgery. The cut needs to be well cared for so it does not get infected. How to care for your cut Cut care Follow instructions from your doctor about how to take care of your cut. Make sure you: ? Wash your hands with soap and water before you change your bandage (dressing). If you cannot use soap and water, use hand thaw shed heater tender. ? Change your bandage as told by your doctor. ? Leave stitches, skin glue, or skin tape in place. They may need to stay in place for 2 weeks or longer. If tape strips get loose and curl up, you may trim the loose edges. Do not remove tape strips completely unless your doctor says it is okay. Check your cut area every day for signs of infection. Check for: ? More redness, swelling, or pain. ? More fluid or blood. ? Warmth. ? Pus or a bad smell. Ask your doctor how to clean the cut. This may include: ? Using mild soap and water. ? Using a clean towel to pat the cut dry after you clean it. ? Putting a cream or ointment on the cut. Do this only as told by your doctor. ? Covering the cut with a clean bandage. Ask your doctor when you can leave the cut uncovered. Do not take baths, swim, or use a hot tub until your doctor says it is okay. Ask your doctor if youcan take showers. You may only be allowed to take sponge baths for bathing. Medicines If you were prescribed an antibiotic medicine, cream, or ointment, take the antibiotic or put it onthe cut as told by your doctor. Do not stop taking or putting on the antibiotic even if your condition gets better. Take ofdx-nwm-ikexynq and prescription medicines only as told by your doctor. General instructions Limit movement around your cut. This helps healing. ? Avoid straining, lifting, or exercise for the first month, or for as long as told by your doctor. ? Follow instructions from your doctor about going back to your normal activities. ? Ask your doctor what activities are safe. Protect your cut from the sun when you are outside for the first 6 months, or for as long as told by your doctor. Put on sunscreen around the scar or cover up the scar. Keep all follow-up visits as told by your doctor. This is important. Contact a doctor if: Your have more redness, swelling, or pain around the cut. You have more fluid or blood coming from the cut. Your cut feels warm to the touch. You have pus or a bad smell coming from the cut. You have a fever or shaking chills. You feel sick to your stomach (nauseous) or you throw up (vomit). You are dizzy. Your stitches or anna come undone. Get help right away if: You have a red streak coming from your cut. Your cut bleeds through the bandage and the bleeding does not stop with gentle pressure. The edges of your cut open up and separate. You have very bad (severe) pain. You have a rash. You are confused. You pass out (faint). You have trouble breathing and you have a fast heartbeat. This information is not intended to replace advice given to you by your health care provider. Make sure you discuss any questions you have with your health care provider. Document Released: 09/06/2012 Document Revised: 11/02/2017 Document Reviewed: 02/20/2017 [employer] Patient Education 2020 [employer]. Additional Information VACCINATE! IT SAVES LIVES! Members of the community who have not yet received the COVID-19 vaccine and would like to receive it can visit one of [facility] vaccine clinics. There are many vaccine clinic locations within the [facility]. For locations and available times, please visit [email or web address] It is important to note that some COVID mobile vaccine clinics are held outdoors and may be canceled in rainy or stormy conditions. To learn more about pediatric vaccinations (ages 5-11), we invite you to visit the [facility] webpage. [email or web address] learn more about the COVID-19 vaccine, we invite you to visit the CDC website for a list of frequently asked questions.https://www.cdc.gov/coronavirus/2019-ncov/vaccines/faq.html [facility] Patient Portal Access Instructions: Stay connected with your healthcare team and access your personal medical information anytime with the [facility] Patient Portal. Please follow the directions below to create your [facility] account: 1.Access the email account you provided upon registration to the hospital/physician office.2.Look for an invitation email from [facility].3.Open the email and access the invitation link: AcceptInvitation to [facility].4.Fill in the required buchanan to create your account. To access your account, visit [employer]. Click the blue button labeled Access Patient Portal and then log in with the username and password that you created in the steps above. You will be able to view your test results, lab results, a summary of your visits, upcoming appointments and more. There is also a convenient messaging option where you can send secure messages to your p rovider. In addition, you will have the ability to download any documents or summaries to your computer and/or send the information securely to a physician. Remember that your healthcare information is confidential, so carefully consider who you will allowto register on the [facility] Patient Portal for access to your information. You can also access the [facility] on the [facility]. Simply click on Patient Portal and then log into your account. If you would like to receive a full copy of your medical records, please contact the [facility] Medical Records Department by calling [phone], Thursday through Thursday between 8 a.m. and 4:30 p.m. HOW TO SAFELY DISPOSE OF PRESCRIPTION MEDICATIONS Please use one of the following methods to safely dispose of your unused medications. 1.Use a drug disposal kit: the drug disposal pouch allows you to safely discard your old and unuseddrugs. Ask your nurse to give you one when you are discharged.2.Visit a local take-back location: Many local pharmacies and police departments have programs that collect old and unwanted prescriptiondrugs. Call your local pharmacy or go to http://[employer].eGifter/5I0Co2c to find one close to you.3.Make use of household items: Use cat litter or old coffee grounds to dispose medications if other options arenot available. Mix your drugs with these household products, seal them in an airtight container andthrow it into the garbage. Call [facility]: [phone] to be sure your drugs can be disposed of in this way. Some medicines may require a different approach.4.Never flush your medications down the toilet. IF YOU HAVE BEEN PRESCRIBED AN OPIOID FOR PAIN If you have been prescribed an opioid (such as hydrocodone, oxycodone or morphine), it is critical to understand the possible side effects and risks of opioid pain medications. Even when taken as directed, opioids can have several side effects including: Tolerance, meaning you might need to take more of a medication for the same pain relief. Nausea, vomiting and/or constipation. Sleepiness, dizziness, dry mouth, confusion, depression or itching. Physical dependence, meaning you have withdrawal symptoms when a medication is stopped, can develop within a few days. KNOW YOUR RESPONSIBILITIES It is important to know exactly how much and how often to take the opioid pain medications you are prescribed. Never take opioids in higher amounts or more often than prescribed. Do not combine opioids with alcohol or other drugs that cause drowsiness, such as benzodiazepines, also known as benzos, including diazepam and alprazolam, muscle relaxants or sleep aids. Never sell or share prescription opioids. This is illegal. Store opioids in a secure place and out of reach of others (including children, family, friends and visitors). The last page of this document has been signed and retained as a CHART COPY. Signatures Patient Education Materials Incision Care, Adult, Lhyt-vx-Keuq Medication Leaflets Percocet My discharge plan and instructions have been reviewed and explained to me and I,REJI VICTOR understand my current condition and have read and understand these discharge instructions. I have received a written copy of the plan/instructions. If I have questions, I am aware that I should contactmy doctor. Patient/Neonatal Surgeon Signature: Date/Time: Relationship to Patient: Witness Name/Signature: [id number] Discharge Instructions Thank you for allowing [facility] to assist you with your healthcare needs. The following is importantdischarge information regarding your hospital visit. Your Care Team KARISSA SALINAS DO Your Diagnosis CSF leak S/P lumbar laminectomy What to do next Instructions From Your Doctor Your follow up appointment will be with Dr. Kapoor's Nurse Practitioner, Orin Bradford CNP. Wear back brace when out of bed. Take stool softener, and do not strain when moving your bowels. No aspirin, multivitamins, or NSAIDs (no Aleve, Motrin, Ibuprofen, Naproxen, etc.) until cleared byneurosurgeon. No lifting more than 10 pounds. No Strenuous activity. Avoid bending/twisting at the waist. No driving for at least 2 weeks; No driving while taking narcotics or muscle relaxants. Keep surgical incision clean and dry at all times until healed (about 2 weeks postoperatively). Maintain surgical dressing over incision for 7 days postoperatively as it is embedded with an antibiotic. After 1 week postop, remove dressing and begin to change daily using dry sterile gauze for about 7-10 days. May leave open to air once fulled healed. Okay to shower, but cover surgical incision with watertight dressing until healed (about 2 weeks postoperatively) No soaking incision site for 6 weeks postoperatively (No tub baths, hot tubs, saunas, swimming, etc.) If surgical incision site becomes red, swollen, painful, opens and/or drainage around site or if you develop a fever- Contact neurosurgery office immediately. Scheduled Follow-Up Appointments Appointment Type When With Where Contact Information StatusSL PSG (Polysomnograph) 01/06/2024 [facility] [address] [place] [address]- Confirmed PC OV Lab Check 01/14/2024 07:20 AM EDT [facility] Confirmed US Renal 04/12/2024 10:00 AM EDT Radiology [phone] Confirmed PC OV Follow Up 04/18/2024 11:00 AM EDT [facility] Confirmed Follow Up Appointments Follow Up with ORIN BRADFORD, Neurosurgery When:01/06/2024 09:45 AM EDT Where:[address] [facility] [address] [place] [address]- [phone] The Following Activity and Diet Have Been Ordered for You No qualifying data available. No qualifying data available. The Following Equipment Has Been Ordered for You No qualifying data available. The Following Treatments Have Been Ordered for You Discharge Labs No qualifying data available. Discharge Radiology No qualifying data available. Other Therapies No qualifying data available. Post Acute Orders No qualifying data available. Someone Will Contact You Regarding These Home Health Referrals No home referrals have been ordered for you. No one will call you. Allergies Tape RASH Vicodin VOMITTING Medications Please ask your primary doctor or pharmacist before taking any other medication not listed, including over the counter drugs, herbal medications, vitamins and or supplements as they may interact withyour home medications. What How Much When Why Instructions Last Dose New acetaminophen (Tylenol 325 mg oral capsule) 650 Milligram by mouth Every 4 hours as needed for Pain, scale 1-3 New acetaminophen-oxyCODONE (acetaminophen-oxyCODONE 325 mg-5 mg oral tablet) See instructions CSF leak S/P lumbar laminectomy 1 tab(s) Oral q6h PRN pain 4-6. 2 tabs Oral q6h PRN pain 7-10. not to exceed 6 tablets/ day., As needed for for pain Pickup at [facility]/pharmacy #[id number] New polyethylene glycol 3350 by mouth Once a day New tiZANidine (tiZANidine 4 mg oral tablet) 1 tab(s) by mouth Every 8 hours as needed for NEEDED FOR MUSCLE SPASM Pickup at [facility]/pharmacy #[id number] Changed DME (DME MISCellaneous) See instructions COPD mixed type nebulizer Changed DME (DME MISCellaneous) See instructions Nebulizer Machine and Equipment Unchanged albuterol (Albuterol (Eqv-Ventolin HFA) 90 mcg/ inh inhalation aerosol) 1 puff(s) by inhalation Four (4) times a day as needed for NEEDED FOR WHEEZING Duration: 30 Days Unchanged atorvastatin (atorvastatin 40 mg oral tablet) 1 tab(s) by mouth Once a day Hyperlipidemia Unchanged docusate (Colace 100 mg oral capsule) 1 cap by mouth Two (2) times a day as needed for as needed for constipation Constipation Unchanged ergocalciferol (ergocalciferol 50,000 intl units (1.25 mg) oral capsule) 1 cap by mouth Every week ON THU Unchanged gabapentin (gabapentin 300 mg oral capsule) 1 cap by mouth Three (3) times a day Unchanged hydroCHLOROthiazide (hydroCHLOROthiazide 25 mg oral tablet) 1 tab(s) by mouth Once a day Unchanged hyoscyamine (hyoscyamine 0.125 mg sublingual tablet) 1 tab(s) under the tongue Four (4) times a day Duration: [address] 1 tablet under the tongue and ALLOW to dissolve before meals and at bedtime Unchanged lidocaine topical (lidocaine 5% topical patch) See instructions APPLY TO AFFECTED AREA DAILY REMOVE PATCHES AFTER 12 HOURS- ONLY USES NEEDED Unchanged metFORMIN (metFORMIN 500 mg oral tablet (IR)) 1 tab(s) by mouth Once a day Prediabetes Unchanged omeprazole (omeprazole 40 mg oral delayed release capsule) 1 cap by mouth Once a day Duration: 90 Days Unchanged tiotropium (Spiriva Respimat 1.25 mcg/ inh inhalation aerosol) 2 puff(s) by inhalation Once a day Unchanged traZODone (traZODone 100 mg oral tablet) 2 tab(s) by mouth Daily at bedtime Duration: 90 Days Pharmacy Information [facility]/pharmacy #[id number]: [address], [place] [phone] Please take this list to your next doctor s visit. Bring all medications you take, including over the counter medications, herbals and other supplements with you to your doctor s visit. Patients and families are reminded to discard old lists and to update any records with all medication providers or retail pharmacies. Medication Leaflets acetaminophen and oxycodone (a SEET a MIN oh fen and OX i KOE done) Endocet 10/325, Endocet 2.5/325, Endocet 5/325, Endocet 7.5/325, Nalocet, Percocet, Prolate What is the most important information I should know about acetaminophen and oxycodone? MISUSE OF OPIOID MEDICINE CAN CAUSE ADDICTION, OVERDOSE, OR . Keep the medication in a place where others cannot get to it. Taking opioid medicine during may cause life-threatening withdrawal symptoms in the . Fatal side effects can occur if you use opioid medicine with alcohol, or with other drugs that cause drowsiness or slow your breathing. Stop taking this medicine and call your doctor right away if you have skin redness or a rash that spreads and causes blistering and peeling. What is acetaminophen and oxycodone? Acetaminophen and oxycodone is a combination medicine used to relieve moderate to severe pain. Acetaminophen and oxycodone contains an opioide medicine and may be habit-forming. Acetaminophen and oxycodone may also be used for purposes not listed in this medication guide. What should I discuss with my healthcare provider before taking acetaminophen and oxycodone? You should not use this medicine if you are allergic to acetaminophen or oxycodone, or if you have: severe asthma or breathing problems; or a blockage in your stomach or intestines. Tell your doctor if you have ever had: breathing problems, sleep apnea; liver disease; a drug or alcohol addiction; kidney disease; a head injury or seizures; urination problems; or problems with your thyroid, pancreas, or gallbladder. If you use opioid medicine while you are , your baby could become dependent on the drug. This can cause life-threatening withdrawal symptoms in the baby after it is born. Babies born dependent on opioids may need medical treatment for several weeks. Ask a doctor before using opioid medicine if you are . Tell your doctor if you notice severe drowsiness or slow breathing in the nursing baby. How should I take acetaminophen and oxycodone? Follow all directions on your prescription label. Never take this medicine in larger amounts, or for longer than prescribed. An overdose can damage your liver or cause . Tell your doctor if you feel an increased urge to use more of this medicine. Never share opioid medicine with another person, especially someone with a history of drug abuse oraddiction. MISUSE CAN CAUSE ADDICTION, OVERDOSE, OR . Keep the medicine in a place where others cannot get to it. Selling or giving away opioid medicine is against the law. Measure liquid medicine carefully. Use the dosing syringe provided, or use a medicine dose-measuring device (not a kitchen spoon). If you need surgery or medical tests, tell the doctor ahead of time that you are using this medicine. You should not stop using this medicine suddenly. Follow your doctor's instructions about tapering your dose. Store at room temperature away from moisture and heat. Keep track of your medicine. You should be aware if anyone is using it improperly or without a prescription. Do not keep leftover opioid medication. Just one dose can cause in someone using this medicine accidentally or improperly. Ask your pharmacist where to locate a drug take-back disposal program.If there is no take-back program, flush the unused medicine down the toilet. What happens if I miss a dose? Since this medicine is used for pain, you are not likely to miss a dose. Skip any missed dose if itis almost time for your next dose. Do not use two doses at one time. What happens if I overdose? Seek emergency medical attention or call the Poison Help line at . An overdose of this medicine can be fatal, especially in a child or other person using the medicine without a prescription. Overdose symptoms may include nausea, vomiting, sweating, severe drowsiness, pinpoint pupils, slow breathing, or no breathing. Your doctor may recommend you get naloxone (a medicine to reverse an opioid overdose) and keep it with you at all times. A person caring for you can give the naloxone if you stop breathing or don't wake up. Your caregiver must still get emergency medical help and may need to perform CPR (cardiopulmonary resuscitation) on you while waiting for help to arrive. Anyone can buy naloxone from a pharmacy or local health department. Make sure any person caring foryou knows where you keep naloxone and how to use it. What should I avoid while taking acetaminophen and oxycodone? Avoid driving or operating machinery until you know how this medicine will affect you. Dizziness ordrowsiness can cause falls, accidents, or severe injuries. Do not drink alcohol. Dangerous side effects or could occur. Ask a doctor or pharmacist before using any other medicine that may contain acetaminophen (sometimes abbreviated as APAP). Taking certain medications together can lead to a fatal overdose. What are the possible side effects of acetaminophen and oxycodone? Get emergency medical help if you have signs of an allergic reaction: hives; difficulty breathing; swelling of your face, lips, tongue, or throat. Opioid medicine can slow or stop your breathing, and may occur. A person caring for you should give naloxone and/or seek emergency medical attention if you have slow breathing with long pauses,blue colored lips, or if you are hard to wake up. In rare cases, acetaminophen may cause a severe skin reaction that can be fatal. This could occur even if you have taken acetaminophen in the past and had no reaction. Stop taking this medicine and call your doctor right away if you have skin redness or a rash that spreads and causes blistering andpeeling. Call your doctor at once if you have: noisy breathing, sighing, shallow breathing, breathing that stops; a light-headed feeling, like you might pass out; weakness, tiredness, fever, unusual bruising or bleeding; confusion, unusual thoughts or behavior; problems with urination; liver problems--nausea, upper stomach pain, tiredness, loss of appetite, dark urine, nu-colored stools, jaundice (yellowing of the skin or eyes); low cortisol levels-- nausea, vomiting, loss of appetite, dizziness, worsening tiredness or weakness; or high levels of serotonin in the body--agitation, hallucinations, fever, sweating, shivering, fast heart rate, muscle stiffness, twitching, loss of coordination, nausea, vomiting, diarrhea. Serious breathing problems may be more likely in older adults and in those who are debilitated or have wasting syndrome or chronic breathing disorders. Common side effects include: dizziness, drowsiness, feeling tired; feelings of extreme happiness or sadness; nausea, vomiting, stomach pain; constipation; or headache. This is not a complete list of side effects and others may occur. Call your doctor for medical advice about side effects. You may report side effects to FDA at 5-327-QHS-0333. What other drugs will affect acetaminophen and oxycodone? You may have breathing problems or withdrawal symptoms if you start or stop taking certain other medicines. Tell your doctor if you also use an antibiotic, antifungal medication, heart or blood pressure medication, seizure medication, or medicine to treat HIV or hepatitis C. Opioid medication can interact with many other drugs and cause dangerous side effects or . Be sure your doctor knows if you also use: cold or allergy medicines, bronchodilator asthma/COPD medication, or a diuretic ('water pill'); medicines for motion sickness, irritable bowel syndrome, or overactive bladder; other opioids--opioid pain medicine or prescription cough medicine; a sedative like Valium--diazepam, alprazolam, lorazepam, Xanax, Klonopin, Versed, and others; drugs that make you sleepy or slow your breathing--a sleeping pill, muscle relaxer, medicine to treat mood disorders or mental illness; drugs that affect serotonin levels in your body--a stimulant, or medicine for depression, Parkinson's disease, migraine headaches, serious infections, or nausea and vomiting. This list is not complete. Other drugs may affect acetaminophen and oxycodone, including prescription and lyhn-obd-noqrpmj medicines, vitamins, and herbal products. Not all possible interactions are listed here. Where can I get more information? Your doctor or pharmacist can provide more information about acetaminophen and oxycodone. Remember, keep this and all other medicines out of the reach of children, never share your medicines with others, and use this medication only for the indication prescribed. Every effort has been made to ensure that the information provided by [employer]. ('[employer]') is accurate, up-to-date, and complete, but no guarantee is made to that effect. Drug information contained herein may be time sensitive. [employer] information has been compiled for use by healthcare practitioners and consumers in the [place] and therefore [employer] does not warrant that uses outside of the [place] are appropriate, unless specifically indicated otherwise. [employer] drug information does not endorse drugs, diagnose patients or recommend therapy. [employer] drug information isan informational resource designed to assist licensed healthcare practitioners in caring for their p atients and/or to serve consumers viewing this service as a supplement to, and not a substitute for, the expertise, skill, knowledge and judgment of healthcare practitioners. The absence of a warningfor a given drug or drug combination in no way should be construed to indicate that the drug or drug combination is safe, effective or appropriate for any given patient. [employer] does not assume any responsibility for any aspect of healthcare administered with the aid of information [employer] provides. The information contained herein is not intended to cover all possible uses, directions, precautions, warnings, drug interactions, allergic reactions, or adverse effects. If you have questions about the drugs you are taking, check with your doctor, nurse or pharmacist. Copyright 7155-6173 [employer]. Version: 22.01. Revision Date: 01/29/2023. Education Materials Incision Care, Adult An incision is a cut that a doctor makes in your skin for surgery (for a procedure). Most times, these cuts are closed after surgery. Your cut from surgery may be closed with stitches (sutures), anna, skin glue, or skin tape (adhesive strips). You may need to return to your doctor to have stitches or anna taken out. This may happen many days or many weeks after your surgery. The cut needs to be well cared for so it does not get infected. How to care for your cut Cut care Follow instructions from your doctor about how to take care of your cut. Make sure you: ? Wash your hands with soap and water before you change your bandage (dressing). If you cannot use soap and water, use hand thaw shed heater tender. ? Change your bandage as told by your doctor. ? Leave stitches, skin glue, or skin tape in place. They may need to stay in place for 2 weeks or longer. If tape strips get loose and curl up, you may trim the loose edges. Do not remove tape strips completely unless your doctor says it is okay. Check your cut area every day for signs of infection. Check for: ? More redness, swelling, or pain. ? More fluid or blood. ? Warmth. ? Pus or a bad smell. Ask your doctor how to clean the cut. This may include: ? Using mild soap and water. ? Using a clean towel to pat the cut dry after you clean it. ? Putting a cream or ointment on the cut. Do this only as told by your doctor. ? Covering the cut with a clean bandage. Ask your doctor when you can leave the cut uncovered. Do not take baths, swim, or use a hot tub until your doctor says it is okay. Ask your doctor if youcan take showers. You may only be allowed to take sponge baths for bathing. Medicines If you were prescribed an antibiotic medicine, cream, or ointment, take the antibiotic or put it onthe cut as told by your doctor. Do not stop taking or putting on the antibiotic even if your condition gets better. Take jjmm-hcs-qxbqcyq and prescription medicines only as told by your doctor. General instructions Limit movement around your cut. This helps healing. ? Avoid straining, lifting, or exercise for the first month, or for as long as told by your doctor. ? Follow instructions from your doctor about going back to your normal activities. ? Ask your doctor what activities are safe. Protect your cut from the sun when you are outside for the first 6 months, or for as long as told by your doctor. Put on sunscreen around the scar or cover up the scar. Keep all follow-up visits as told by your doctor. This is important. Contact a doctor if: Your have more redness, swelling, or pain around the cut. You have more fluid or blood coming from the cut. Your cut feels warm to the touch. You have pus or a bad smell coming from the cut. You have a fever or shaking chills. You feel sick to your stomach (nauseous) or you throw up (vomit). You are dizzy. Your stitches or anna come undone. Get help right away if: You have a red streak coming from your cut. Your cut bleeds through the bandage and the bleeding does not stop with gentle pressure. The edges of your cut open up and separate. You have very bad (severe) pain. You have a rash. You are confused. You pass out (faint). You have trouble breathing and you have a fast heartbeat. This information is not intended to replace advice given to you by your health care provider. Make sure you discuss any questions you have with your health care provider. Document Released: 09/06/2012 Document Revised: 11/02/2017 Document Reviewed: 02/20/2017 [employer] Patient Education 2020 [employer]. Additional Information VACCINATE! IT SAVES LIVES! Members of the community who have not yet received the COVID-19 vaccine and would like to receive it can visit one of [facility] vaccine clinics. There are many vaccine clinic locations within the [facility]. For locations and available times, please visit [email or web address].gov/. It is important to note that some COVID mobile vaccine clinics are held outdoors and may be canceled in rainy or stormy conditions. To learn more about pediatric vaccinations (ages 5-11), we invite you to visit the [facility] webpage. [email or web address]/[email or web address] learn more about the COVID-19 vaccine, we invite you to visit the CDC website for a list of frequently asked questions.https://www.cdc.gov/coronavirus/2019-ncov/vaccines/faq.html [employer] Patient Portal Access Instructions: Stay connected with your healthcare team and access your personal medical information anytime with the [facility] Patient Portal. Please follow the directions below to create your [facility] account: 1.Access the email account you provided upon registration to the hospital/physician office.2.Look for an invitation email from [facility].3.Open the email and access the invitation link: AcceptInvitation to [employer].4.Fill in the required buchanan to create your account. To access your account, visit [employer]katt. Click the blue button labeled Access Patient Portal and then log in with the username and password that you created in the steps above. You will be able to view your test results, lab results, a summary of your visits, upcoming appointments and more. There is also a convenient messaging option where you can send secure messages to your p rovider. In addition, you will have the ability to download any documents or summaries to your computer and/or send the information securely to a physician. Remember that your healthcare information is confidential, so carefully consider who you will allowto register on the [facility] Patient Portal for access to your information. You can also access the [facility] Patient Portal on the [facility] brandie. Simply click on Patient Portal and then log into your account. If you would like to receive a full copy of your medical records, please contact the [facility] Medical Records Department by calling [phone], Thursday through Thursday between 8 a.m. and 4:30 p.m. HOW TO SAFELY DISPOSE OF PRESCRIPTION MEDICATIONS Please use one of the following methods to safely dispose of your unused medications. 1.Use a drug disposal kit: the drug disposal pouch allows you to safely discard your old and unuseddrugs. Ask your nurse to give you one when you are discharged.2.Visit a local take-back location: Many local pharmacies and police departments have programs that collect old and unwanted prescriptiondrugs. Call your local pharmacy or go to http://[employer].eGifter/2C5Sy0e to find one close to you.3.Make use of household items: Use cat litter or old coffee grounds to dispose medications if other options arenot available. Mix your drugs with these household products, seal them in an airtight container andthrow it into the garbage. Call [facility]: [phone] to be sure your drugs can be disposed of in this way. Some medicines may require a different approach.4.Never flush your medications down the toilet. IF YOU HAVE BEEN PRESCRIBED AN OPIOID FOR PAIN If you have been prescribed an opioid (such as hydrocodone, oxycodone or morphine), it is critical to understand the possible side effects and risks of opioid pain medications. Even when taken as directed, opioids can have several side effects including: Tolerance, meaning you might need to take more of a medication for the same pain relief. Nausea, vomiting and/or constipation. Sleepiness, dizziness, dry mouth, confusion, depression or itching. Physical dependence, meaning you have withdrawal symptoms when a medication is stopped, can develop within a few days. KNOW YOUR RESPONSIBILITIES It is important to know exactly how much and how often to take the opioid pain medications you are prescribed. Never take opioids in higher amounts or more often than prescribed. Do not combine opioids with alcohol or other drugs that cause drowsiness, such as benzodiazepines, also known as benzos, including diazepam and alprazolam, muscle relaxants or sleep aids. Never sell or share prescription opioids. This is illegal. Store opioids in a secure place and out of reach of others (including children, family, friends and visitors). The last page of this document has been signed and retained as a CHART COPY. Signatures Patient Education Materials Incision Care, Adult, Fqth-zn-Fejs Medication Leaflets Percocet My discharge plan and instructions have been reviewed and explained to me and I,REJI VICTOR understand my current condition and have read and understand these discharge instructions. I have received a written copy of the plan/instructions. If I have questions, I am aware that I should contactmy doctor. Patient/Neonatal Surgeon Signature: Date/Time: Relationship to Patient: Witness Name/Signature: [id number] Discharge Instructions Thank you for allowing [facility] to assist you with your healthcare needs. The following is importantdischarge information regarding your hospital visit. Your Care Team KARISSA SALINAS DO Your Diagnosis CSF leak S/P lumbar laminectomy What to do next Instructions From Your Doctor Your follow up appointment will be with Dr. Kapoor's Nurse Practitioner, Orin Bradford CNP. Wear back brace when out of bed. Take stool softener, and do not strain when moving your bowels. No aspirin, multivitamins, or NSAIDs (no Aleve, Motrin, Ibuprofen, Naproxen, etc.) until cleared byneurosurgeon. No lifting more than 10 pounds. No Strenuous activity. Avoid bending/twisting at the waist. No driving for at least 2 weeks; No driving while taking narcotics or muscle relaxants. Keep surgical incision clean and dry at all times until healed (about 2 weeks postoperatively). Maintain surgical dressing over incision for 7 days postoperatively as it is embedded with an antibiotic. After 1 week postop, remove dressing and begin to change daily using dry sterile gauze for about 7-10 days. May leave open to air once fulled healed. Okay to shower, but cover surgical incision with watertight dressing until healed (about 2 weeks postoperatively) No soaking incision site for 6 weeks postoperatively (No tub baths, hot tubs, saunas, swimming, etc.) If surgical incision site becomes red, swollen, painful, opens and/or drainage around site or if you develop a fever- Contact neurosurgery office immediately. Scheduled Follow-Up Appointments Appointment Type When With Where Contact Information StatusSL PSG (Polysomnograph) 01/06/2024 [facility] [address] [place] [address]- Confirmed PC OV Lab Check 01/14/2024 07:20 AM EDT [facility] Confirmed US Renal 04/12/2024 10:00 AM EDT Radiology [phone] Confirmed PC OV Follow Up 04/18/2024 11:00 AM EDT [facility] Confirmed Follow Up Appointments Follow Up with ORIN BRADFORD, Neurosurgery When:01/06/2024 09:45 AM EDT Where:[address] [facility] [address] [place] [address]- [phone] The Following Activity and Diet Have Been Ordered for You No qualifying data available. No qualifying data available. The Following Equipment Has Been Ordered for You No qualifying data available. The Following Treatments Have Been Ordered for You Discharge Labs No qualifying data available. Discharge Radiology No qualifying data available. Other Therapies No qualifying data available. Post Acute Orders No qualifying data available. Someone Will Contact You Regarding These Home Health Referrals No home referrals have been ordered for you. No one will call you. Allergies Tape RASH Vicodin VOMITTING Medications Please ask your primary doctor or pharmacist before taking any other medication not listed, including over the counter drugs, herbal medications, vitamins and or supplements as they may interact withyour home medications. What How Much When Why Instructions Last Dose New acetaminophen (Tylenol 325 mg oral capsule) 650 Milligram by mouth Every 4 hours as needed for Pain, scale 1-3 New acetaminophen-oxyCODONE (acetaminophen-oxyCODONE 325 mg-5 mg oral tablet) See instructions CSF leak S/P lumbar laminectomy 1 tab(s) Oral q6h PRN pain 4-6. 2 tabs Oral q6h PRN pain 7-10. not to exceed 6 tablets/ day., As needed for for pain Pickup at [facility]/pharmacy #[id number] New polyethylene glycol 3350 by mouth Once a day New tiZANidine (tiZANidine 4 mg oral tablet) 1 tab(s) by mouth Every 8 hours as needed for NEEDED FOR MUSCLE SPASM Pickup at [facility]/pharmacy #[id number] Changed DME (DME MISCellaneous) See instructions COPD mixed type nebulizer Changed DME (DME MISCellaneous) See instructions Nebulizer Machine and Equipment Unchanged albuterol (Albuterol (Eqv-Ventolin HFA) 90 mcg/ inh inhalation aerosol) 1 puff(s) by inhalation Four (4) times a day as needed for NEEDED FOR WHEEZING Duration: 30 Days Unchanged atorvastatin (atorvastatin 40 mg oral tablet) 1 tab(s) by mouth Once a day Hyperlipidemia Unchanged docusate (Colace 100 mg oral capsule) 1 cap by mouth Two (2) times a day as needed for as needed for constipation Constipation Unchanged ergocalciferol (ergocalciferol 50,000 intl units (1.25 mg) oral capsule) 1 cap by mouth Every week ON THU Unchanged gabapentin (gabapentin 300 mg oral capsule) 1 cap by mouth Three (3) times a day Unchanged hydroCHLOROthiazide (hydroCHLOROthiazide 25 mg oral tablet) 1 tab(s) by mouth Once a day Unchanged hyoscyamine (hyoscyamine 0.125 mg sublingual tablet) 1 tab(s) under the tongue Four (4) times a day Duration: [address] 1 tablet under the tongue and ALLOW to dissolve before meals and at bedtime Unchanged lidocaine topical (lidocaine 5% topical patch) See instructions APPLY TO AFFECTED AREA DAILY REMOVE PATCHES AFTER 12 HOURS- ONLY USES NEEDED Unchanged metFORMIN (metFORMIN 500 mg oral tablet (IR)) 1 tab(s) by mouth Once a day Prediabetes Unchanged omeprazole (omeprazole 40 mg oral delayed release capsule) 1 cap by mouth Once a day Duration: 90 Days Unchanged tiotropium (Spiriva Respimat 1.25 mcg/ inh inhalation aerosol) 2 puff(s) by inhalation Once a day Unchanged traZODone (traZODone 100 mg oral tablet) 2 tab(s) by mouth Daily at bedtime Duration: 90 Days Pharmacy Information [facility]/pharmacy #[id number]: [address], [place] [phone] Please take this list to your next doctor s visit. Bring all medications you take, including over the counter medications, herbals and other supplements with you to your doctor s visit. Patients and families are reminded to discard old lists and to update any records with all medication providers or retail pharmacies. Medication Leaflets acetaminophen and oxycodone (a SEET a MIN oh fen and OX i KOE done) Endocet 10/325, Endocet 2.5/325, Endocet 5/325, Endocet 7.5/325, Nalocet, Percocet, Prolate What is the most important information I should know about acetaminophen and oxycodone? MISUSE OF OPIOID MEDICINE CAN CAUSE ADDICTION, OVERDOSE, OR . Keep the medication in a place where others cannot get to it. Taking opioid medicine during may cause life-threatening withdrawal symptoms in the . Fatal side effects can occur if you use opioid medicine with alcohol, or with other drugs that cause drowsiness or slow your breathing. Stop taking this medicine and call your doctor right away if you have skin redness or a rash that spreads and causes blistering and peeling. What is acetaminophen and oxycodone? Acetaminophen and oxycodone is a combination medicine used to relieve moderate to severe pain. Acetaminophen and oxycodone contains an opioide medicine and may be habit-forming. Acetaminophen and oxycodone may also be used for purposes not listed in this medication guide. What should I discuss with my healthcare provider before taking acetaminophen and oxycodone? You should not use this medicine if you are allergic to acetaminophen or oxycodone, or if you have: severe asthma or breathing problems; or a blockage in your stomach or intestines. Tell your doctor if you have ever had: breathing problems, sleep apnea; liver disease; a drug or alcohol addiction; kidney disease; a head injury or seizures; urination problems; or problems with your thyroid, pancreas, or gallbladder. If you use opioid medicine while you are , your baby could become dependent on the drug. This can cause life-threatening withdrawal symptoms in the baby after it is born. Babies born dependent on opioids may need medical treatment for several weeks. Ask a doctor before using opioid medicine if you are . Tell your doctor if you notice severe drowsiness or slow breathing in the nursing baby. How should I take acetaminophen and oxycodone? Follow all directions on your prescription label. Never take this medicine in larger amounts, or for longer than prescribed. An overdose can damage your liver or cause . Tell your doctor if you feel an increased urge to use more of this medicine. Never share opioid medicine with another person, especially someone with a history of drug abuse oraddiction. MISUSE CAN CAUSE ADDICTION, OVERDOSE, OR . Keep the medicine in a place where others cannot get to it. Selling or giving away opioid medicine is against the law. Measure liquid medicine carefully. Use the dosing syringe provided, or use a medicine dose-measuring device (not a kitchen spoon). If you need surgery or medical tests, tell the doctor ahead of time that you are using this medicine. You should not stop using this medicine suddenly. Follow your doctor's instructions about tapering your dose. Store at room temperature away from moisture and heat. Keep track of your medicine. You should be aware if anyone is using it improperly or without a prescription. Do not keep leftover opioid medication. Just one dose can cause in someone using this medicine accidentally or improperly. Ask your pharmacist where to locate a drug take-back disposal program.If there is no take-back program, flush the unused medicine down the toilet. What happens if I miss a dose? Since this medicine is used for pain, you are not likely to miss a dose. Skip any missed dose if itis almost time for your next dose. Do not use two doses at one time. What happens if I overdose? Seek emergency medical attention or call the Poison Help line at . An overdose of this medicine can be fatal, especially in a child or other person using the medicine without a prescription. Overdose symptoms may include nausea, vomiting, sweating, severe drowsiness, pinpoint pupils, slow breathing, or no breathing. Your doctor may recommend you get naloxone (a medicine to reverse an opioid overdose) and keep it with you at all times. A person caring for you can give the naloxone if you stop breathing or don't wake up. Your caregiver must still get emergency medical help and may need to perform CPR (cardiopulmonary resuscitation) on you while waiting for help to arrive. Anyone can buy naloxone from a pharmacy or local health department. Make sure any person caring foryou knows where you keep naloxone and how to use it. What should I avoid while taking acetaminophen and oxycodone? Avoid driving or operating machinery until you know how this medicine will affect you. Dizziness ordrowsiness can cause falls, accidents, or severe injuries. Do not drink alcohol. Dangerous side effects or could occur. Ask a doctor or pharmacist before using any other medicine that may contain acetaminophen (sometimes abbreviated as APAP). Taking certain medications together can lead to a fatal overdose. What are the possible side effects of acetaminophen and oxycodone? Get emergency medical help if you have signs of an allergic reaction: hives; difficulty breathing; swelling of your face, lips, tongue, or throat. Opioid medicine can slow or stop your breathing, and may occur. A person caring for you should give naloxone and/or seek emergency medical attention if you have slow breathing with long pauses,blue colored lips, or if you are hard to wake up. In rare cases, acetaminophen may cause a severe skin reaction that can be fatal. This could occur even if you have taken acetaminophen in the past and had no reaction. Stop taking this medicine and call your doctor right away if you have skin redness or a rash that spreads and causes blistering andpeeling. Call your doctor at once if you have: noisy breathing, sighing, shallow breathing, breathing that stops; a light-headed feeling, like you might pass out; weakness, tiredness, fever, unusual bruising or bleeding; confusion, unusual thoughts or behavior; problems with urination; liver problems--nausea, upper stomach pain, tiredness, loss of appetite, dark urine, nu-colored stools, jaundice (yellowing of the skin or eyes); low cortisol levels-- nausea, vomiting, loss of appetite, dizziness, worsening tiredness or weakness; or high levels of serotonin in the body--agitation, hallucinations, fever, sweating, shivering, fast heart rate, muscle stiffness, twitching, loss of coordination, nausea, vomiting, diarrhea. Serious breathing problems may be more likely in older adults and in those who are debilitated or have wasting syndrome or chronic breathing disorders. Common side effects include: dizziness, drowsiness, feeling tired; feelings of extreme happiness or sadness; nausea, vomiting, stomach pain; constipation; or headache. This is not a complete list of side effects and others may occur. Call your doctor for medical advice about side effects. You may report side effects to FDA at 6-824-JCU-1727. What other drugs will affect acetaminophen and oxycodone? You may have breathing problems or withdrawal symptoms if you start or stop taking certain other medicines. Tell your doctor if you also use an antibiotic, antifungal medication, heart or blood pressure medication, seizure medication, or medicine to treat HIV or hepatitis C. Opioid medication can interact with many other drugs and cause dangerous side effects or . Be sure your doctor knows if you also use: cold or allergy medicines, bronchodilator asthma/COPD medication, or a diuretic ('water pill'); medicines for motion sickness, irritable bowel syndrome, or overactive bladder; other opioids--opioid pain medicine or prescription cough medicine; a sedative like Valium--diazepam, alprazolam, lorazepam, Xanax, Klonopin, Versed, and others; drugs that make you sleepy or slow your breathing--a sleeping pill, muscle relaxer, medicine to treat mood disorders or mental illness; drugs that affect serotonin levels in your body--a stimulant, or medicine for depression, Parkinson's disease, migraine headaches, serious infections, or nausea and vomiting. This list is not complete. Other drugs may affect acetaminophen and oxycodone, including prescription and sfwh-pul-hponbrq medicines, vitamins, and herbal products. Not all possible interactions are listed here. Where can I get more information? Your doctor or pharmacist can provide more information about acetaminophen and oxycodone. Remember, keep this and all other medicines out of the reach of children, never share your medicines with others, and use this medication only for the indication prescribed. Every effort has been made to ensure that the information provided by [employer]. ('[employer]') is accurate, up-to-date, and complete, but no guarantee is made to that effect. Drug information contained herein may be time sensitive. [employer] information has been compiled for use by healthcare practitioners and consumers in the [place] and therefore [employer] does not warrant that uses outside of the [place] are appropriate, unless specifically indicated otherwise. [employer] drug information does not endorse drugs, diagnose patients or recommend therapy. [employer] drug information isan informational resource designed to assist licensed healthcare practitioners in caring for their p atients and/or to serve consumers viewing this service as a supplement to, and not a substitute for, the expertise, skill, knowledge and judgment of healthcare practitioners. The absence of a warningfor a given drug or drug combination in no way should be construed to indicate that the drug or drug combination is safe, effective or appropriate for any given patient. [employer] does not assume any responsibility for any aspect of healthcare administered with the aid of information [employer] provides. The information contained herein is not intended to cover all possible uses, directions, precautions, warnings, drug interactions, allergic reactions, or adverse effects. If you have questions about the drugs you are taking, check with your doctor, nurse or pharmacist. Copyright 4546-4325 [employer]. Version: 22.01. Revision Date: 01/29/2023. Education Materials Incision Care, Adult An incision is a cut that a doctor makes in your skin for surgery (for a procedure). Most times, these cuts are closed after surgery. Your cut from surgery may be closed with stitches (sutures), anna, skin glue, or skin tape (adhesive strips). You may need to return to your doctor to have stitches or anna taken out. This may happen many days or many weeks after your surgery. The cut needs to be well cared for so it does not get infected. How to care for your cut Cut care Follow instructions from your doctor about how to take care of your cut. Make sure you: ? Wash your hands with soap and water before you change your bandage (dressing). If you cannot use soap and water, use hand thaw shed heater tender. ? Change your bandage as told by your doctor. ? Leave stitches, skin glue, or skin tape in place. They may need to stay in place for 2 weeks or longer. If tape strips get loose and curl up, you may trim the loose edges. Do not remove tape strips completely unless your doctor says it is okay. Check your cut area every day for signs of infection. Check for: ? More redness, swelling, or pain. ? More fluid or blood. ? Warmth. ? Pus or a bad smell. Ask your doctor how to clean the cut. This may include: ? Using mild soap and water. ? Using a clean towel to pat the cut dry after you clean it. ? Putting a cream or ointment on the cut. Do this only as told by your doctor. ? Covering the cut with a clean bandage. Ask your doctor when you can leave the cut uncovered. Do not take baths, swim, or use a hot tub until your doctor says it is okay. Ask your doctor if youcan take showers. You may only be allowed to take sponge baths for bathing. Medicines If you were prescribed an antibiotic medicine, cream, or ointment, take the antibiotic or put it onthe cut as told by your doctor. Do not stop taking or putting on the antibiotic even if your condition gets better. Take tonu-ncr-hgrzkfl and prescription medicines only as told by your doctor. General instructions Limit movement around your cut. This helps healing. ? Avoid straining, lifting, or exercise for the first month, or for as long as told by your doctor. ? Follow instructions from your doctor about going back to your normal activities. ? Ask your doctor what activities are safe. Protect your cut from the sun when you are outside for the first 6 months, or for as long as told by your doctor. Put on sunscreen around the scar or cover up the scar. Keep all follow-up visits as told by your doctor. This is important. Contact a doctor if: Your have more redness, swelling, or pain around the cut. You have more fluid or blood coming from the cut. Your cut feels warm to the touch. You have pus or a bad smell coming from the cut. You have a fever or shaking chills. You feel sick to your stomach (nauseous) or you throw up (vomit). You are dizzy. Your stitches or anna come undone. Get help right away if: You have a red streak coming from your cut. Your cut bleeds through the bandage and the bleeding does not stop with gentle pressure. The edges of your cut open up and separate. You have very bad (severe) pain. You have a rash. You are confused. You pass out (faint). You have trouble breathing and you have a fast heartbeat. This information is not intended to replace advice given to you by your health care provider. Make sure you discuss any questions you have with your health care provider. Document Released: 09/06/2012 Document Revised: 11/02/2017 Document Reviewed: 02/20/2017 [employer] Patient Education 2020 [employer] Additional Information VACCINATE! IT SAVES LIVES! Members of the community who have not yet received the COVID-19 vaccine and would like to receive it can visit one of [facility] vaccine clinics. There are many vaccine clinic locations within the [facility]. For locations and available times, please visit [email or web address].[place].gov/. It is important to note that some COVID mobile vaccine clinics are held outdoors and may be canceled in rainy or stormy conditions. To learn more about pediatric vaccinations (ages 5-11), we invite you to visit the [facility] webpage. [email or web address]/[email or web address] [email or web address] learn more about the COVID-19 vaccine, we invite you to visit the CDC website for a list of frequently asked questions.https://www.cdc.gov/coronavirus/2019-ncov/vaccines/faq.html [employer] Patient Portal Access Instructions: Stay connected with your healthcare team and access your personal medical information anytime with the [facility] Patient Portal. Please follow the directions below to create your [facility] account: 1.Access the email account you provided upon registration to the hospital/physician office.2.Look for an invitation email from [facility].3.Open the email and access the invitation link: AcceptInvitation to [facility].4.Fill in the required buchanan to create your account. To access your account, visit [employer]/[email or web address]. Click the blue button labeled Access Patient Portal and then log in with the username and password that you created in the steps above. You will be able to view your test results, lab results, a summary of your visits, upcoming appointments and more. There is also a convenient messaging option where you can send secure messages to your p rovider. In addition, you will have the ability to download any documents or summaries to your computer and/or send the information securely to a physician. Remember that your healthcare information is confidential, so carefully consider who you will allowto register on the [facility] for access to your information. You can also access the [facility] on the [employer] brandie. Simply click on Patient Portal and then log into your account. If you would like to receive a full copy of your medical records, please contact the [facility] Medical Records Department by calling [phone], Thursday through Thursday between 8 a.m. and 4:30 p.m. HOW TO SAFELY DISPOSE OF PRESCRIPTION MEDICATIONS Please use one of the following methods to safely dispose of your unused medications. 1.Use a drug disposal kit: the drug disposal pouch allows you to safely discard your old and unuseddrugs. Ask your nurse to give you one when you are discharged.2.Visit a local take-back location: Many local pharmacies and police departments have programs that collect old and unwanted prescriptiondrugs. Call your local pharmacy or go to http://[employer].eGifter/8Y0Oz8k to find one close to you.3.Make use of household items: Use cat litter or old coffee grounds to dispose medications if other options arenot available. Mix your drugs with these household products, seal them in an airtight container andthrow it into the garbage. Call [facility]: [phone] to be sure your drugs can be disposed of in this way. Some medicines may require a different approach.4.Never flush your medications down the toilet. IF YOU HAVE BEEN PRESCRIBED AN OPIOID FOR PAIN If you have been prescribed an opioid (such as hydrocodone, oxycodone or morphine), it is critical to understand the possible side effects and risks of opioid pain medications. Even when taken as directed, opioids can have several side effects including: Tolerance, meaning you might need to take more of a medication for the same pain relief. Nausea, vomiting and/or constipation. Sleepiness, dizziness, dry mouth, confusion, depression or itching. Physical dependence, meaning you have withdrawal symptoms when a medication is stopped, can develop within a few days. KNOW YOUR RESPONSIBILITIES It is important to know exactly how much and how often to take the opioid pain medications you are prescribed. Never take opioids in higher amounts or more often than prescribed. Do not combine opioids with alcohol or other drugs that cause drowsiness, such as benzodiazepines, also known as benzos, including diazepam and alprazolam, muscle relaxants or sleep aids. Never sell or share prescription opioids. This is illegal. Store opioids in a secure place and out of reach of others (including children, family, friends and visitors). The last page of this document has been signed and retained as a CHART COPY. Signatures Patient Education Materials [facility] Care, Adult, Msbb-ox-Yuxp Medication Leaflets Percocet My discharge plan and instructions have been reviewed and explained to me and I,REJI VICTOR understand my current condition and have read and understand these discharge instructions. I have received a written copy of the plan/instructions. If I have questions, I am aware that I should contactmy doctor. Patient/Neonatal Surgeon Signature: Date/Time: Relationship to Patient: Witness Name/Signature: Date/Time[id number] Discharge summary Date of Service 01/02/2024 Discharge Diagnosis Cerebrospinal fluid leak, unspecified (G96.00 - ICD-10-CM) Accidental puncture or laceration of dura during a procedure (G97.41 - ICD-10-CM) Headache with orthostatic component, not elsewhere classified (R51.0 - ICD-10-CM) Chronic obstructive pulmonary disease, unspecified (J44.9 - ICD-10-CM) Essential (primary) hypertension (I10 - ICD-10-CM) Spinal stenosis, lumbar region without neurogenic claudication (M48.061 - ICD-10-CM) Radiculopathy, lumbar region (M54.16 - ICD-10-CM) Spinal stenosis, lumbosacral region (M48.07 - ICD-10-CM) Low back pain, unspecified (M54.50 - ICD-10-CM) Pain in right hip (M25.551 - ICD-10-CM) Pain in left hip (M25.552 - ICD-10-CM) Pain in right leg (M79.604 - ICD-10-CM) Pain in left leg (M79.605 - ICD-10-CM) Type 2 diabetes mellitus without complications (E11.9 - ICD-10-CM) Irritable bowel syndrome without diarrhea (K58.9 - ICD-10-CM) Rheumatoid arthritis, unspecified (M06.9 - ICD-10-CM) Dural tear (G96.11 - ICD-10-CM) Meningitis, unspecified (G03.9 - ICD-10-CM) CSF leak (G96.00 - ICD-10-CM) Ordered: acetaminophen-oxyCODONE 325 mg-5 mg oral tablet; See Instructions, PRN for pain, 1 tab(s) Oral q6h PRN pain 4-6.2 tabs Oral q6h PRN pain 7-10.not to exceed 6 tablets/day., # 42 tab(s), 0 Refill(s), Pharmacy: [facility]/pharmacy #[id number], CSF leak S/P lumbar laminectomy, 175.3, cm, 12/22/23 15:05:00 EDT,... S/P lumbar laminectomy (Z98.890 - ICD-10-CM) Ordered: acetaminophen-oxyCODONE 325 mg-5 mg oral tablet; See Instructions, PRN for pain, 1 tab(s) Oral q6h PRN pain 4-6.2 tabs Oral q6h PRN pain 7-10.notto exceed 6 tablets/day., # 42 tab(s), 0 Refill(s), Pharmacy: [facility]/pharmacy #[id number], CSF leak S/P lumbar laminectomy, 175.3, cm, 12/22/23 15:05:00 EDT,... Additional Orders: Ordered: Back Brace -- PT,01/02/24 7:31:00 EDT, Lumbosacral Orthosis (LSO) Brace, Braces can be applied seated at the edge of the bed unless otherwise ordered. Ordered: Tylenol 325 mg oral capsule,Dose : 650 mg =, Oral, q4h, PRN Pain, scale 1-3, 0 Refill(s) Ordered: polyethylene glycol 3350,Oral, qDay, 0 Refill(s) Ordered: tiZANidine 4 mg oral tablet,1 tab(s), Oral, q8h, PRN NEEDED FOR MUSCLE SPASM, # 30 tab(s), 0 Refill(s), Pharmacy: [facility]/pharmacy #[id number], 175.3, cm, 12/22/23 15:05:00 EDT, Height, kg, 12/22/23 15:05:00 EDT, Dosing Weight End of Orders Hospital Course This is a 48-year-old male, who recently underwent an L4-S1 laminectomy with bilateral foraminotomies by Dr. Kapoor on 12/08/2023. Prior to surgery, he had low back pain radiating into his bilateral hips and down his bilateral lower extremities with paresthesias and weakness. Postoperatively, he has significant improvement in the low back pain as well as leg pain. He was seen in the neurosurgery clinic by Dr. Kapoor's nurse practitioner at his 2-week follow-up, which was on 12/21/2023. At that time, he stated he has been having positional headaches that started acouple days after he was discharged home from the hospital post-operatively. A stat CT of the lumbar spine was ordered, and demonstrated a enhancing fluid collection at the surgical site measuring 3.8 x 3.5 x 5.5 cm consistent with a CSF leak. Due to these findings, he was admitted, and and an MRI of the lumbar spine was ordered. The MRI demonstrated 6.6 cm peripherally enhancing fluid collection at the operative sites causing mass effect on the thecal sac and causing moderate canal stenosis at L3-4 and L4-5. Also a 10.5 cm multiloculated fluid collection was also notedin the subcutaneous fat. Due to these findings, he was taken to the operating room by Dr. Espinoza (covering for Dr. Kapoor) for a lumbar wound exploration and CSF repair. During the CSF repair, a lumbar drain was also placed.Lumbar drain was kept in place and he was kept flat for about 72 hours. The lumbar drain was drained hourly 10 to 15 mL each hour. Patient had no headaches. The drain was clamped on 12/28/2023 the patient's head of the bed was elevated slowly. He had a CT of the myelogram that same day which demonstrated extensive contrast material within the laminectomy bed consistent with continued CSF leak, therefore he was placed on flat bedrest again and lumbar drain was continued to be drained at 10cc/hr. He continued to be on flat bedrest until 12/29/23 in morning. At that time, the lumbar drain was clamped and the patient's head of bed was slightly elevated every 2 hours. He denied a headache, but he was noted to have saturated dressings on at least 2 occasions per nursing. The incision and drain sitewere evaluated, and the patient was actively draining around the lumbar drain tubing. No drainage from the surgical incision. Patient was then returned to lying flat and the drained open to drain 10 to 15 mL an hour. On the morning of 12/30/2023, the dressing around the lumbar drain was noted to be saturated again regardless of draining CSF hourly. The patient continued to deny headache. He did have a fluid collection in the right lumbar drain site. A pressure dressing was applied, but he continued to have drainage around the drain site. Due to the constant drainage from the lumbar drain site, the lumbar drain was removed on 12/30/2023. On 12/31/23 his head of the bed was elevated 15 degrees every 2 hours until he reached 45 degrees. He states that he had no headaches while raising the head of bed. Dressing remained dry. On 01/01/24 he continues to deny any headaches. His lumbar dressing and drain site dressing remained dry. They had been dry since the lumbar drain was removed on 12/30/2023 and a stitch was placed to thedrain site. The lumbar incision completely flat with no fluid collection noted. His HOB was gradually elevated even further until he was sitting straight up in bed. He then got out of bed and walked to bathroom and sat up in the chair for a couple hours. Again no headache or drainage. This morning on exam, he is awake, alert, and oriented x 3. He denies any headache or nausea. He istolerating a diet well. Denies any pain radiating down the legs. Dorsiflexion plantarflexion are strong. No paresthesias in his lower extremities. Dressing was changed, and there was no drainage on the dressing or from the incision site. Incisionremains flat, no swelling or erythema noted. Patient has ambulated around the hallway without difficulty. He is using a walker and feels steady on his feet. Again no headache or drainage noted. He feels ready to be discharged home with the care of his and family. His discharge instructions and restrictions are provided for him and have been reviewed with him. It was stressed to him theimportance of taking it easy and not doing strenuous activity or straining (such as for a BM). He is encouraged to take stool softeners. He stated understanding of the above. He will follow up in the Neurosurgery office on Thu01/06/24 for a wound check and to ensure he is not having headaches or drainage from the incision. OAARS report reviewed. Percocet and Tizanidine sent in to pharmacy. He was told if surgical incision site becomes red, swollen, painful, opens and/or drainage around site or if you develop a fever- Contact neurosurgery office immediately. Allergies Tape RASH Vicodin VOMITTING Procedures Operation 1. Postlaminectomy wound exploration with microscopic duraplasty (Dura-Guard) 2. Lumbar drain placement (C-arm fluoroscopy) Consults Consult to Occupational Therapy - Ordered -- 01/02/24 8:00:00 EDT, Once, *Other, specify in special instructions, s/p laminectomy with CSF leak. Has been bedrest for last week. Consult to Physical Therapy - Ordered -- 01/01/24 15:14:00 EDT, Once, *Other, specify in special instructions, S/P laminectomy with CSF leak. Has been bedrest for last week. Consult to Physician - Ordered -- 12/24/23 17:37:00 EDT, LUKE SANCHEZ MD, Routine, Please follow medically while in SICU Consult to Physician - Ordered -- 01/01/24 11:30:00 EDT, ISI WOO BA, MD, Routine, Staph epidermidis-CSF culture- low suspicion for infection- would like input. Objective Vitals and Measurements T: 36.9 C (Oral) TMIN: 36.9 C (Oral) TMAX: 37.5 C (Oral) HR: 77 (Monitored) RR: 16 BP: 139/91 SpO2:94% Weight Dosing Weight: 113.6 kg (12/22/23) Code Status Code Status - Ordered -- 12/22/23 20:59:00 EDT, Full Code, Constant Order Admission Date 12/22/23 Discharge Date 01/02/2024 Patient Instructions Your follow up appointment will be with Dr. Kapoor's Nurse Practitioner, Orin Bradford CNP. Wear back brace when out of bed. Take stool softener, and do not strain when moving your bowels. No aspirin, multivitamins, or NSAIDs (no Aleve, Motrin, Ibuprofen, Naproxen, etc.) until cleared byneurosurgeon. No lifting more than 10 pounds. No Strenuous activity. Avoid bending/twisting at the waist. No driving for at least 2 weeks; No driving while taking narcotics or muscle relaxants. Keep surgical incision clean and dry at all times until healed (about 2 weeks postoperatively). Maintain surgical dressing over incision for 7 days postoperatively as it is embedded with an antibiotic. After 1 week postop, remove dressing and begin to change daily using dry sterile gauze for about 7-10 days. May leave open to air once fulled healed. Okay to shower, but cover surgical incision with watertight dressing until healed (about 2 weeks postoperatively) No soaking incision site for 6 weeks postoperatively (No tub baths, hot tubs, saunas, swimming, etc.) If surgical incision site becomes red, swollen, painful, opens and/or drainage around site or if you develop a fever- Contact neurosurgery office immediately. Medications New Prescription acetaminophen (Tylenol 325 mg oral capsule)650 Milligram by mouth every 4 hours as needed Pain, scale 1-3. acetaminophen-oxyCODONE (acetaminophen-oxyCODONE 325 mg-5 mg oral tablet)1 tab(s) Oral q6h PRN pain4-6. 2 tabs Oral q6h PRN pain 7-10. not to exceed 6 tablets/day.; as needed for pain. Refills: 0. polyethylene glycol 3350by mouth once a day. tiZANidine (tiZANidine 4 mg oral tablet)1 tab(s) by mouth every 8 hours as needed NEEDED FOR MUSCLE SPASM. Refills: 0. Changed DME (DME MISCellaneous)Nebulizer Machine and Equipment. Refills: 0. DME (DME MISCellaneous)nebulizer. Refills: 0. Unchanged albuterol (Albuterol (Eqv-Ventolin HFA) 90 mcg/inh inhalation aerosol)1 puff(s) by inhalation four (4) times a day as needed NEEDED FOR WHEEZING for 30 Days. Refills: 0. atorvastatin (atorvastatin 40 mg oral tablet)1 tab(s) by mouth once a day. Refills: 0. docusate (Colace 100 mg oral capsule)1 cap by mouth two (2) times a day as needed as needed for constipation. Refills: 0. ergocalciferol (ergocalciferol 50,000 intl units (1.25 mg) oral capsule)1 cap by mouth every week. ON THU. Refills: 0. gabapentin (gabapentin 300 mg oral capsule)1 cap by mouth three (3) times a day. Refills: 0. hydroCHLOROthiazide (hydroCHLOROthiazide 25 mg oral tablet)1 tab(s) by mouth once a day. Refills: 0. hyoscyamine (hyoscyamine 0.125 mg sublingual tablet)1 tab(s) under the tongue four (4) times a day for [address] 1 tablet under the tongue and ALLOW to dissolve before meals and at bedtime. Refills: 0. lidocaine topical (lidocaine 5% topical patch)APPLY TO AFFECTED AREA DAILY REMOVE PATCHES AFTER 12 HOURS- ONLY USES NEEDED. Refills: 0. metFORMIN (metFORMIN 500 mg oral tablet (IR))1 tab(s) by mouth once a day. Refills: 0. omeprazole (omeprazole 40 mg oral delayed release capsule)1 cap by mouth once a day for 90 Days. Refills: 0. tiotropium (Spiriva Respimat 1.25 mcg/inh inhalation aerosol)2 puff(s) by inhalation once a day. traZODone (traZODone 100 mg oral tablet)2 tab(s) by mouth daily at bedtime for 90 Days. Refills: 0. Follow Up Follow Up with ORIN BRADFORD APRN-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 DEVELOPER, Neurosurgery When:01/06/2024 09:45 AM EDT Where:[address] [place] [address] [place] [address]- [phone] Follow Up Appointments See above Follow Up Labs/Studies Discharge Labs No Follow-up Labs Discharge Studies No Follow-up Studies Discharge Diet Resume home diet Discharge Activity See above Condition on Discharge Stable Readmission Risk/Palliative Score No qualifying data available. Discharge Disposition Home Information Provided To Patient Time Spent 15 min Digitally Signed by HOWIE PASCAL on 01/02/2024 09:58 AM [id number] Note. MICRO - Microbiology PROCEDURE: Culture Anaerobe [*1] SOURCE: Shunt Fluid BODY SITE: COLLECTED DATE/TIME: 12/26/2023 23:43 EDT RECEIVED DATE/TIME: 12/26/2023 23:56 EDT START DATE/TIME: 12/26/2023 23:57 EDT FREE TEXT SOURCE: FINAL REPORTS Final Report [] Verified Date/Time/Personnel: 01/02/2024 08:36 EDT No aerobes or anaerobes isolated at 7 days. PRELIMINARY REPORTS Preliminary Report [] Verified Date/Time/Personnel: 12/27/2023 07:45 EDT No growth to date Performing Locations *1: This test was performed at: [facility], [address] [place] [address], [id number] , [facility] (ID)01-01-2024 Infectious disease Consult note Date of Service 01/01/2024 Reason for Consultation Staph epi CSF leak Referring Physician Dr. Kapoor History of Present Illness Patient is a 48-year-old male who underwent a 4 S1 laminectomy with bilateral foraminotomy by Dr. Kapoor on 12/08/2023. This is complicated by CSF leak. Patient has been brought into the hospital and was taken to the OR on 12/24/2023 for wound exploration whereby patient noted to have dural defect at L5-S1 extending into the S1 lamina and laterally into the right L5-S1 lateral recess. Patient had a lumbar drain placed. Patient since then has been managed under neurosurgery service for CSF leak. Patient had intraoperative cultures obtained on 12/24/2023 which remain negative. Patient had serial CSFspecimen sent for CSF analysis and cultures they were all negative up until 12/28/2023 manage CSF cult ure grew staph epi hence ID consulted. In interim patient was receiving ceftriaxone which is now discontinued as lumbar drain is out. ID consulted for further recommendations. Review of Systems 12 point review of systems is reviewed and is negative except for noted above. Physical Exam Vitals and Measurements T: 37.2 C (Oral) TMIN: 36.6 C (Oral) TMAX: 37.2 C (Oral) HR: 67 RR: 16 BP: 117/69 SpO2: 94% Weight Dosing Weight: 113.6 kg (12/22/23) General Appearance: Patient is laying in the bed not in any apparent distress HEENT: Atraumatic normocephalic, EOMI Neck: Neck supple oral mucosa moist Cardiopulmonary exam patient overall in no respiratory distress Lab Results No 36 Hour Lab Data Imaging Results and Diagnostics CT Spine Lumbar w/ Contrast Result Date: December 28, 2023 Verified By: KRITSEN BOWDEN MD CLINICAL STATEMENT: IMPRESSION: Extensive contrast material in the laminectomy bed, some combination of CSFand or drainleak. Mild stenosis in the lower lumbar spine, some combination of surgical changesand extruded stenosis increased since the MR of 21 December. The cauda appears grossly unremarkable through the lower C5cgxue, and is notdiscretely visualized below this level, due mainly to stenosis. IR Myelography Lumbosacral Result Date: December 28, 2023 Verified By: KRISTEN WHITE MD CLINICAL STATEMENT: IMPRESSION: 1. Successful lumbar myelography via existing lumbar drain. 2. Please see the separately dictated CT Myelogram for details. Procedure was performed by Noni Morrow PA-C XR Fluoro < 1Hr Tech Time Result Date: December 24, 2023 Verified By: KARIE CURRAN MD CLINICAL STATEMENT: IMPRESSION: Intraprocedural fluoroscopic spot images as above. See separate procedurereport for more information. Assessment/Plan CSF leak Patient is a 48-year-old male who underwent a 4 S1 laminectomy with bilateral foraminotomy by Dr. Kapoor on 12/08/2023. This is complicated by CSF leak. Patient has been brought into the hospital and was taken to the OR on 12/24/2023 for wound exploration whereby patient noted to have dural defect at L5-S1 extending into the S1 lamina and laterally into the right L5-S1 lateral recess. Patient had a lumbar drain placed. Patient had multiple CSF specimen sent to lab for CSF analysis and culture and sensitivity from lumbar drain. Currently a patient's lumbar drain has been removed. 1 CSF culture obtained 12/28/2023 notable for staph epi. Prior CSF cultures were negative overall CSF parameters improving discussed with n eurosurgery service low suspicion for infection on clinical grounds. I suspect staph epi could be a contaminant. Will hold off on initiating any antimicrobials at this time. Recommend continued clinical monitoring for any signs of infection. Discussed with neurosurgery service. Thank you for consultation. Problem List/Past Medical History Ongoing Abdominal pain Acid reflux Asthma COPD mixed type Diarrhea Hyperlipidemia Hypertension Kidney stones Lumbar radiculopathy Lung nodule Migraine Nicotine dependence Postural dizziness Prediabetes Preop examination Renal cyst Rheumatoid arthritis Vitamin D deficiency Wellness examination Historical Burn Procedure/Surgical History Laminectomy: 12/08/23 Tooth extraction Extraction of wisdom tooth Eye Injection ESWL (extracorporeal shockwave lithotripsy) of ureteric calculus EGD (esophagogastroduodenoscopy) gastric outlet reduction Colonoscopy Hernia repair Insertion of aylin through fracture Cholecystectomy Medications Inpatient albuterol, 2.5 mg= 3 mL, Inhalation, QIDRT, PRN Apresoline, 10 mg= 0.5 mL, IV Push, q15min, PRN atorvastatin, 40 mg= 1 tab(s), Oral, qDay Cepacol Sore Throat lozenge, 1 lozenge(s), Oral, q2h, PRN Colace, 100 mg= 1 cap(s), Oral, BID, PRN Colace, 100 mg= 1 cap(s), Oral, BID, PRN Dextrose 50% IV Push, 12.5 gram(s)= 25 mL, IV Push, AsDirected, PRN docusate-senna 50 mg-8.6 mg oral tablet, 1 tab(s), Oral, BID DuoNeb, 3 mL, Inhalation, q2hRT, PRN DuoNeb, 3 mL, Inhalation, TIDRT gabapentin, 300 mg= 1 cap(s), Oral, TID heparin 5000 units/mL injection, 5000 unit(s)= 1 mL, Subcutaneous, q8h HumaLOG 100 units/mL subcutaneous solution, Give 0-5 units/dose, Subcutaneous, TIDAC Maalox, 30 mL, Oral, q2h, PRN Maalox, 30 mL, Oral, q2h, PRN metFORMIN 500 mg oral tablet (IR), 500 mg= 1 tab(s), Oral, qDay Milk of Magnesia, 30 mL, Oral, qHS, PRN Miralax Powder Packet, 17 gram(s)= 15 mL, Oral, qDay NS 1,000 mL, 1000 mL, Intravenous omeprazole, 40 mg= 1 cap(s), Oral, qDay Percocet 325/5, 2 tab(s), Oral, q4h, PRN Percocet 325/5, 1 tab(s), Oral, q4h, PRN Senokot S, 1 tab(s), Oral, BID tiZANidine, 4 mg= 1 tab(s), Oral, TID traZODone, 200 mg= 2 tab(s), Oral, qHS Tylenol, 650 mg= 2 tab(s), Oral, q4h, PRN Zofran, 4 mg= 2 mL, IV Push, q4h, PRN Home Albuterol (Eqv-Ventolin HFA) 90 mcg/inh inhalation aerosol, 1 puff(s), Inhalation, QID, PRN atorvastatin 40 mg oral tablet, 40 mg= 1 tab(s), Oral, qDay Colace 100 mg oral capsule, 100 mg= 1 cap(s), Oral, BID, PRN DME MISCellaneous, See Instructions DME MISCellaneous, See Instructions ergocalciferol 50,000 intl units (1.25 mg) oral capsule, 1 cap(s), Oral, qWeek gabapentin 300 mg oral capsule, 1 cap(s), Oral, TID hydroCHLOROthiazide 25 mg oral tablet, 1 tab(s), Oral, qDay hyoscyamine 0.125 mg sublingual tablet, 0.125 mg= 1 tab(s), Sublingual, QID lidocaine 5% topical patch, See Instructions metFORMIN 500 mg oral tablet (IR), 500 mg= 1 tab(s), Oral, qDay omeprazole 40 mg oral delayed release capsule, 40 mg= 1 cap(s), Oral, qDay Spiriva Respimat 1.25 mcg/inh inhalation aerosol, 2 puff(s), Inhalation, qDay tiZANidine 4 mg oral tablet, 1 tab(s), Oral, q8h, PRN traZODone 100 mg oral tablet, 2 tab(s), Oral, qHS Allergies Tape RASH Vicodin VOMITTING Social History Smoking Status - 01/05/2018 Former smoker Alcohol - Low Risk, 08/25/2017 Use: Current. Frequency: 1-2 times per year., 11/27/2023 Home/Environment Domestic Concerns: Denies., 11/27/2023 Nutrition/Health Type of diet: Regular. Appetite Excellent., 07/06/2020 Substance Abuse - Denies Substance Abuse, 08/25/2017 Use: Current. Type: Marijuana, MEDICAL MARIJUANA. Frequency: 1-2 times per week., 11/27/2023 Tobacco Nicotine Use: STATES CHEWS 1-2 TIMES A MONTH. Type: Oral (Snuff, Chew)., 11/27/2023 Nicotine Use: 10 or more cigarettes (1/2 pack or more)/day in last 30 days. Type: Cigarettes. Tobacco use per day: 10. Started at age: 14 Years. Ready to change: Yes. Smoking Cessation Information Instructed to not smoke day of surgery., 11/27/2023 Family History Cancer: Mother and Father. Diabetes mellitus: Mother and Father. Heart disease: Mother and Father. Health Status Family Member(s) Immunizations pneumococcal 23-valent vaccine(Pneumovax: 0.5 unknown unit (09/17/17) tetanus/diphth/pertuss (Tdap) adult/adol: 0.5 mL (01/04/18) Digitally Signed by AYLIN MARIE MD on 01/01/2024 04:16 PM [id number] IR Procedure Record Summary Primary Physician: NONI MORROW PA-C Finalized Date/Time: 01/01/24 12:17:35 Pt. Name: REJI VICTOR./Sex: 1975 Male Med Rec #: [id number] Physician: MARINA ESPINOZA MD Financial #: [id number] Pt. Type: I Room/Bed: [facility]/A Admit/Disch: 12/22/23 14:25:00 - Institution: Allergies identified in patient's electronic medical record at time of printing on 01/01/24 Entry 1 Entry 2 Substance Tape Vicodin Reaction Type Side Effect Side Effect Last Modified By: Anju Benedict RN Anju Benedict RN 11/27/23 11:59:18 11/27/23 11:59:28 Case Attendance- IR Entry 1 Entry 2 Entry 3 Case Attendee NONI MORROW Alexis Tech Allen, Rad Tech Donna PA-C Role Performed Primary Surgeon Scrub Technologist Circulating Technologist Details Time In 12/28/23 13:59:00 12/28/23 13:59:00 12/28/23 13:59:00 Time Out 12/28/23 14:52:00 12/28/23 14:52:00 12/28/23 14:52:00 Procedure/Preference IR Myelography IR Myelography IR Myelography Card Lumbosacral SN Lumbosacral SN Lumbosacral SN Last Modified By: Jaylen Faith Rad Tech Donna Allen, Rad Tech Donna 12/28/23 14:53:00 12/28/23 14:53:00 12/28/23 14:53:00 Radiology Procedures- IR Entry 1 Procedure/Preference IR Myelography Actual Procedure IR MYELOGRAPHY Card Lumbosacral SN LUMBOSACRAL Primary Procedure Yes Primary Surgeon NONI MORROW PA-C Anesthesia/Sedation Local Type Additional Procedure Times Start 12/28/23 14:02:00 Stop 12/28/23 14:44:00 Specialty Service SN Radiology Procedure EBL 0 mL Last Modified By: Anjali Cavazos 12/29/23 17:34:10 Radiology Procedure Details - IR Entry 1 Radiology Sedation Case Times Sedation Total Time 0 Radiology - Fluid/Drainage Radiology Contrast Contrast Used? Yes Dose 10 mL Medication CONTRAST ISOVUE 200M/10ML 10/BX 484378 Radiology Flouroscopy Fluoroscopy Used? Yes Fluoro Dose (mGy) 60.3 Fluoro Time 54 sec Radiology Local Local Used? Yes Local Type: Lidocaine 2% Local Dose 10cc Radiology Procedure Site Site/Location existing lumbar drain Site Condition No complications Technologist Notes existing catheter used for exam Last Modified By: Anjali Cavazos 12/29/23 17:35:14 General Case Data - IR Entry 1 Case Information Room IR 18 Case Level IR Level 2 Wound Class None Specialty SN Radiology Procedure ASA Class None Diagnosis Preop Diagnosis CSF leak Postop Same As Preop Yes Postop Diagnosis CSF leak Last Modified By: Jaylen Faith 12/28/23 14:19:56 Procedure Case Times- IR Entry 1 Patient In Procedure Patient In OR 12/28/23 13:59:00 Patient Out of OR 12/28/23 14:52:00 Procedure Start/Stop Procedure Start Time 12/28/23 14:02:00 Procedure Stop Time 12/28/23 14:44:00 Last Modified By: Jaylen Faith 12/28/23 14:52:57 Immediate Post Procedure Note - IR Entry 1 Immediate Post Yes Findings myelo Procedure Note displayed for Physician to review Closure Technique Closure Technique Primary Last Modified By: Jaylen Faith 12/30/23 14:16:43 Immediate Post Procedure Note - IR Signed By: NONI MORROW PA-C 12/30/23 14:16 Allergy Information- IR Entry 1 Allergies Reviewed? Yes Allergies Reviewed Patient With Last Modified By: Jaylen Faith 12/28/23 14:13:22 Radiology Protocols/Time Out- IR Entry 1 Preprocedure Clinician Verifies Correct patient ID When Clinically Confirmation of correct using name & date Indicated side(s) and site(s), or MRN, Accurate Correct diagnostic and procedure, complete radiology tests Informed Consent, H & P available, Required update immediately blood products, prior to procedure, if implants, devices applicable and/or special equipment available OR/Procedure Room/Bedside Time 12/28/23 14:02:00 Clinician Verifies Correct patient identity including EMR & records using name and date or medical record number, Accurate procedure consent form, Correct patient position, Necessary equipment is available, Anticipated non-routine events with surgical team (case duration, estimated blood loss, patient specific concerns). When Applicable Confirmation correct Team Members NONI MORROW side and site marked, Present for Time Out Kayla CAMACHO Alexis Relevant images and Marcell Castañeda Rad Tech results are properly Tiara labeled and appropriately displayed Instrument Sterility Procedure IR Myelography Lumbosacral SN Last Modified By: Anjali Cavazos 12/29/23 17:33:39 Skin Prep- IR Entry 1 Procedure IR Myelography Lumbosacral SN Skin Prep Prep Area Other see comments Side Medial By NONI MORROW Prep Agents Betadine Solution PA-C Hair Removal Method N/A Last Modified By: Jaylen Faith 12/28/23 14:18:50 Patient Positioning- IR Entry 1 Procedure IR Myelography Body Position OP Prone Lumbosacral SN Feet Uncrossed? Yes Pressure Points Yes Checked Last Modified By: Jaylen Faith 12/28/23 14:19:04 Radiology Procedure Plan - IR Entry 1 Radiology - Nursing Care Plan Radiology - Action Plan Action Plan - Patient demonstrates Outcome Statement knowledge of the expected reseponses to the invasive procedure, Patient's value system, lifestyle, ethnicity, and culture are considered, respected, and incorporated in the perioperative plan of care., Patient is free from signs and symptoms of infection., Patient is free from signs and symptoms of injury related to positioning., Patient is free from signs and symptoms of chemical injury., Patient receives appropriate medication(s), safely administered during the perioperative period. Outcomes Met? 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 Patient this is a 48-year-old male, who recently underwent an L4-S1 laminectomy with bilateral foraminotomies by Dr. Kapoor on 12/08/2023. Prior to surgery, he had low back pain radiating into his bilateral hips and down his bilateral lower extremities with paresthesias and weakness. Postoperatively, he has significant improvement in the low back pain as well as leg pain. He was seen in the neurosurgery clinic by Dr. Kapoor's nurse practitioner at his 2-week follow-up, which was on 12/21/2023. At that time, he stated he has been having positional headaches that started acouple days after he was discharged home from the hospital. A stat CT of the lumbar spine was ordered, and demonstrated a enhancing fluid collection at the surgical site measuring 3.8 x 3.5 x 5.5 cm consistent with a CSF leak. Due to these findings, he was admitted, and and an MRI of the lumbar spine was ordered. The MRI demonstrated 6.6 cm peripherally enhancing fluid collection at the operative sites causing mass effect on the thecal sac and causing moderate canal stenosis at L3-4 and L4-5. Also a 10.5 cm multiloculated fluid collection was also notedin the subcutaneous fat. Due to these findings, he was taken to the operating room by Dr. Espinoza for a lumbar wound exploration and CSF repair. During the CSF repair, a lumbar drain was also placed. Lumbar drain was kept in place and he was kept flat for about 72 hours. The lumbar drain was drained hourly 10 to 15 mL each hour. Patient had no headaches. The drain was clamped on 12/28/2023 the patient's head of the bed was elevated slowly. He had a CT of the myelogram that same day which demonstrated extensive contrast material within the laminectomy bed consistent with continued CSF leak, therefore he was placed on flat bedrest again. He continues to be on flat bedrest until 12/29/23 in morning. At that time, the lumbar drain was clamped and the patient's head of bed was slightly elevated every 2 hours. He denied a headache, but he was noted to have saturated dressings on at least 2 occasions per nursing. The incision and drain site were evaluated, and the patient was actively draining around the lumbar drain tubing. No drainage from the surgical incision. Patient was then returned tolying flat in the drain open to drain 10 to 15 mL an hour. On the morning of 12/30/2023, the dressing around the lumbar drain was noted to be saturated again regardless of draining CSF hourly. The patient continued to deny headache. He did have a fluid collection in the right lumbar drain site. A pressure dressing was applied, but he continued to have drainage around the drain site. Due to the constant drainage from the lumbar drain site, the lumbar drain was removed on 12/30/2023. Yesterday, his head of the bed was elevated every 2 hours to 15 degrees until he reached 45 degrees. He states that he had no headaches while raising the head of bed. This morning, he continues to deny any headaches. His lumbar dressing and drain site dressing are dry. They have been dry since the lumbar drain was removed on 12/30/2023 and a stitch was placed to thedrain site. The lumbar incision is completely flat with no fluid collection noted. On exam, he is awake, alert, and oriented x 3. He denies any headache or nausea. He is tolerating adiet well. Denies any pain radiating down the legs. Dorsiflexion plantarflexion are strong. No paresthesias in his lower extremities. Objective Vitals and Measurements T: 36.8 C (Oral) TMIN: 36.6 C (Oral) TMAX: 37.1 C (Oral) HR: 68 (Monitored) RR: 16 BP: 133/95 SpO2:97% Intake and Output 7AM Yesterday to 7AM Today Intake and Output (Last 24 hours) Intake Oral Intake 700.00 Administration Information 800.00 Supplement Intake 0.00 Output Urine Voided 3200.00 Stool Count 1.00 Emesis Count 1.00 Total Summary Total Intake 1500.00 Total Output 3200.00 Fluid Balance -1700.00 Physical Exam Weight Dosing Weight: 113.6 kg (12/22/23) Medications Medications (26) Active Scheduled: (11) albuterol - ipratropium 2.5 mg-0.5 mg/3 mL Inhal Sherrie UD 3 mL, Inhalation, TIDRT atorvastatin 40 mg tablet 40 mg 1 tab(s), Oral, qDay cefTRIAXone IVP syringe 1 gram(s) 10 mL, IV Push (INT), q12h docusate-senna (Senokot S) 50 mg-8.6 mg Tablet 1 tab(s), Oral, BID gabapentin 300 mg Capsule 300 mg 1 cap(s), Oral, TID insulin lispro 100 units/mL Soln (3 mL) Give 0-5 units/dose, Subcutaneous, TIDAC metformin 500 mg Tablet 500 mg 1 tab(s), Oral, qDay omeprazole [address] capsule 40 mg 1 cap(s), Oral, qDay polyethylene glycol 3350 - UD packet 17 gram(s) 15 mL, Oral, qDay tiZANidine 4 mg tablet 4 mg 1 tab(s), Oral, TID traZODONE 100 mg Tablet 200 mg 2 tab(s), Oral, qHS Continuous: (1) NS (0.9% nacl) 1,000 mL 1,000 mL, Intravenous, 50 mL/hr PRN: (14) acetaminophen 325 mg Tablet 650 mg 2 tab(s), Oral, q4h acetaminophen-OXYcodone 325 mg-5 mg Tablet 2 tab(s), Oral, q4h acetaminophen-OXYcodone 325 mg-5 mg Tablet 1 tab(s), Oral, q4h Al hydrox/Mg hydrox/simethicone 200-200-20 mg/5 mL Susp UD 30 mL, Oral, q2h Al hydrox/Mg hydrox/simethicone 200-200-20 mg/5 mL Susp UD 30 mL, Oral, q2h albuterol - ipratropium 2.5 mg-0.5 mg/3 mL Inhal Sherrie UD 3 mL, Inhalation, q2hRT albuterol 0.083% Soln UD (2.5mg/3 mL) 2.5 mg 3 mL, Inhalation, QIDRT benzocaine-menthol (Cepacol Sore Throat) 15 mg-3.6mg lozenge 1 lozenge(s), Oral, q2h dextrose 50% Solution Disp syringe 50 mL 12.5 gram(s) 25 mL, IV Push, AsDirected docusate sodium 100 mg Capsule 100 mg 1 cap(s), Oral, BID docusate sodium 100 mg Capsule 100 mg 1 cap(s), Oral, BID hydralazine 20 mg/mL (1mL) vial 10 mg 0.5 mL, IV Push, q15min magnesium hydroxide 8% Suspension 30 mL UD 30 mL, Oral, qHS ondansetron 2 mg/ 1 mL 2 mL INJ 4 mg 2 mL, IV Push, q4h Lab Results No 36 Hour Lab Data EKG No qualifying data available. 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 Since the lumbar drain has been removed, the patient has had no headaches and no drainage from the incision or the lumbar drain site itself. Lumbar drain site was sutured closed after the drain was removed. -He tolerated the head of bed being elevated to 45 degrees yesterday. He denies any headaches this morning. -Today, we will continue to increase his head of bed up to 90 degrees. If he is able to tolerate this, he will then be able to stand at the bedside with bathroom privileges. -He is currently ordered a stool softener to prevent straining and bearing down which could possibly reopen the CSF leak. -Patient was on Rocephin prophylactically while the lumbar drain was in place. This will be discontinued. -Potentially, could be discharged home over the weekend, if his incision remains flat with no drainage and he has no headache. -All the above was discussed with the patient and his . Questions were answered. -Patient has no new acute concerns. Please see Dr. Kapoor's addendum for further details and recommendations. 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 Patient this is a 48-year-old male, who recently underwent an L4-S1 laminectomy with bilateral foraminotomies by Dr. Kapoor on 12/08/2023. Prior to surgery, he had low back pain radiating into his bilateral hips and down his bilateral lower extremities with paresthesias and weakness. Postoperatively, he has significant improvement in the low back pain as well as leg pain. He was seen in the neurosurgery clinic by Dr. Kapoor's nurse practitioner at his 2-week follow-up, which was on 12/21/2023. At that time, he stated he has been having positional headaches that started acouple days after he was discharged home from the hospital. A stat CT of the lumbar spine was ordered, and demonstrated a enhancing fluid collection at the surgical site measuring 3.8 x 3.5 x 5.5 cm consistent with a CSF leak. Due to these findings, he was admitted, and and an MRI of the lumbar spine was ordered. The MRI demonstrated 6.6 cm peripherally enhancing fluid collection at the operative sites causing mass effect on the thecal sac and causing moderate canal stenosis at L3-4 and L4-5. Also a 10.5 cm multiloculated fluid collection was also notedin the subcutaneous fat. Due to these findings, he was taken to the operating room by Dr. Espinoza for a lumbar wound exploration and CSF repair. During the CSF repair, a lumbar drain was also placed. Lumbar drain was kept in place and he was kept flat for about 72 hours. The lumbar drain was drained hourly 10 to 15 mL each hour. Patient had no headaches. The drain was clamped on 12/28/2023 the patient's head of the bed was elevated slowly. He had a CT of the myelogram that same day which demonstrated extensive contrast material within the laminectomy bed consistent with continued CSF leak, therefore he was placed on flat bedrest again. He continues to be on flat bedrest until 12/29/23 in morning. At that time, the lumbar drain was clamped and the patient's head of bed was slightly elevated every 2 hours. He denied a headache, but he was noted to have saturated dressings on at least 2 occasions per nursing. The incision and drain site were evaluated, and the patient was actively draining around the lumbar drain tubing. No drainage from the surgical incision. Patient was then returned tolying flat in the drain open to drain 10 to 15 mL an hour. On the morning of 12/30/2023, the dressing around the lumbar drain was noted to be saturated again regardless of draining CSF hourly. The patient continued to deny headache. He did have a fluid collection in the right lumbar drain site. A pressure dressing was applied, but he continued to have drainage around the drain site. Due to the constant drainage from the lumbar drain site, the lumbar drain was removed on 12/30/2023. Yesterday, his head of the bed was elevated every 2 hours to 15 degrees until he reached 45 degrees. He states that he had no headaches while raising the head of bed. This morning, he continues to deny any headaches. His lumbar dressing and drain site dressing are dry. They have been dry since the lumbar drain was removed on 12/30/2023 and a stitch was placed to thedrain site. The lumbar incision is completely flat with no fluid collection noted. On exam, he is awake, alert, and oriented x 3. He denies any headache or nausea. He is tolerating adiet well. Denies any pain radiating down the legs. Dorsiflexion plantarflexion are strong. No paresthesias in his lower extremities. Objective Vitals and Measurements T: 36.8 C (Oral) TMIN: 36.6 C (Oral) TMAX: 37.1 C (Oral) HR: 68 (Monitored) RR: 16 BP: 133/95 SpO2:97% Intake and Output 7AM Yesterday to 7AM Today Intake and Output (Last 24 hours) Intake Oral Intake 700.00 Administration Information 800.00 Supplement Intake 0.00 Output Urine Voided 3200.00 Stool Count 1.00 Emesis Count 1.00 Total Summary Total Intake 1500.00 Total Output 3200.00 Fluid Balance -1700.00 Physical Exam Weight Dosing Weight: 113.6 kg (12/22/23) Medications Medications (26) Active Scheduled: (11) albuterol - ipratropium 2.5 mg-0.5 mg/3 mL Inhal Sherrie UD 3 mL, Inhalation, TIDRT atorvastatin 40 mg tablet 40 mg 1 tab(s), Oral, qDay cefTRIAXone IVP syringe 1 gram(s) 10 mL, IV Push (INT), q12h docusate-senna (Senokot S) 50 mg-8.6 mg Tablet 1 tab(s), Oral, BID gabapentin 300 mg Capsule 300 mg 1 cap(s), Oral, TID insulin lispro 100 units/mL Soln (3 mL) Give 0-5 units/dose, Subcutaneous, TIDAC metformin 500 mg Tablet 500 mg 1 tab(s), Oral, qDay omeprazole [address] capsule 40 mg 1 cap(s), Oral, qDay polyethylene glycol 3350 - UD packet 17 gram(s) 15 mL, Oral, qDay tiZANidine 4 mg tablet 4 mg 1 tab(s), Oral, TID traZODONE 100 mg Tablet 200 mg 2 tab(s), Oral, qHS Continuous: (1) NS (0.9% nacl) 1,000 mL 1,000 mL, Intravenous, 50 mL/hr PRN: (14) acetaminophen 325 mg Tablet 650 mg 2 tab(s), Oral, q4h acetaminophen-OXYcodone 325 mg-5 mg Tablet 2 tab(s), Oral, q4h acetaminophen-OXYcodone 325 mg-5 mg Tablet 1 tab(s), Oral, q4h Al hydrox/Mg hydrox/simethicone 200-200-20 mg/5 mL Susp UD 30 mL, Oral, q2h Al hydrox/Mg hydrox/simethicone 200-200-20 mg/5 mL Susp UD 30 mL, Oral, q2h albuterol - ipratropium 2.5 mg-0.5 mg/3 mL Inhal Sherrie UD 3 mL, Inhalation, q2hRT albuterol 0.083% Soln UD (2.5mg/3 mL) 2.5 mg 3 mL, Inhalation, QIDRT benzocaine-menthol (Cepacol Sore Throat) 15 mg-3.6mg lozenge 1 lozenge(s), Oral, q2h dextrose 50% Solution Disp syringe 50 mL 12.5 gram(s) 25 mL, IV Push, AsDirected docusate sodium 100 mg Capsule 100 mg 1 cap(s), Oral, BID docusate sodium 100 mg Capsule 100 mg 1 cap(s), Oral, BID hydralazine 20 mg/mL (1mL) vial 10 mg 0.5 mL, IV Push, q15min magnesium hydroxide 8% Suspension 30 mL UD 30 mL, Oral, qHS ondansetron 2 mg/ 1 mL 2 mL INJ 4 mg 2 mL, IV Push, q4h Lab Results No 36 Hour Lab Data EKG No qualifying data available. 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 Since the lumbar drain has been removed, the patient has had no headaches and no drainage from the incision or the lumbar drain site itself. Lumbar drain site was sutured closed after the drain was removed. -He tolerated the head of bed being elevated to 45 degrees yesterday. He denies any headaches this morning. -Today, we will continue to increase his head of bed up to 90 degrees. If he is able to tolerate this, he will then be able to stand at the bedside with bathroom privileges. -He is currently ordered a stool softener to prevent straining and bearing down which could possibly reopen the CSF leak. -Patient was on Rocephin prophylactically while the lumbar drain was in place. This will be discontinued. -Potentially, could be discharged home over the weekend, if his incision remains flat with no drainage and he has no headache. -All the above was discussed with the patient and his . Questions were answered. -Patient has no new acute concerns. Please see Dr. Kapoor's addendum for further details and recommendations. Anticipated Date of Discharge Possibly Thursday or Thursday Time Spent 15 min Digitally Signed by HOWIE PASCAL on 01/01/2024 10:26 AM [id number] NoteORIGINAL PROCEDURE: Fluoroscopically guided lumbar myelogram Principal Accounts Clerk: Noni Morrow PA-C CLINICAL INFORMATION: CSF leak from lumbar laminectomy, patient has lumbar drain, want to assess for persistent leak FLUORO: 54 seconds AIR KERMA DOSE: 60.3 mGy NEEDLE: None PUNCTURE LEVEL: None CONTRAST: 10 mL Omni 180 The risks, benefits, and alternatives of the procedure were carefully explained to the patient who wished to proceed. Informed written consent was obtained prior to beginning the study. The patient's medications were reviewed, including dosage and route of administration. Appropriate medications were held pre-myelogram, if indicated. The patient was placed prone on the fluoroscopy table. The lumbar drain connection was prepped and draped in the usual, sterile fashion. Under direct fluoroscopic visualization, contrast was injected into the thecal sac via the existing lumbar drain. PLAIN FILM MYELOGRAM: Intrathecal contrast is present. Extravasation of contrast into the posterior soft tissues consistent with CSF leak. COMPLICATIONS: None EBL: Minimal PATIENT CONDITION: Stable, unchanged. IMPRESSION: 1. Successful lumbar myelography via existing lumbar drain. 2. Please see the separately dictated CT Myelogram for details. Procedure was performed by Noni Morrow PA-C Interpreted by: Kristen White MD Preliminary Report By: Noni Morrow PA-C Electronically signed By Kristen White MD Dictated Date: 12/28/2023 4:44:35 PM Prelim Date: 12/30/2023 3:34:41 PM Sign Date: 01/01/2024 9:45:50 AM Ordering Provider: [facility] ([place])01-01-2024 Note. MICRO - Microbiology PROCEDURE: Culture Anaerobe [*1] SOURCE: Shunt Fluid BODY SITE: COLLECTED DATE/TIME: 12/25/2023 21:44 EDT RECEIVED DATE/TIME: 12/25/2023 22:20 EDT START DATE/TIME: 12/25/2023 22:21 EDT FREE TEXT SOURCE: Shunt FINAL REPORTS Final Report [] Verified Date/Time/Personnel: 01/01/2024 07:04 EDT No aerobes or anaerobes isolated at 7 days. PRELIMINARY REPORTS Preliminary Report [] Verified Date/Time/Personnel: 12/26/2023 07:47 EDT No growth to date Performing Locations *1: This test was performed at: [facility], [address] [place] [address], [facility] , [facility])12-31-2023 Progress note Date of Service December 31, 2023 Chief Complaint CSF leak Subjective No acute overnight events, no headaches. Lumbar drain site, and primary incision remain intact. No saturation of dressing. Objective Vitals and Measurements T: 37.0 C (Oral) TMIN: 36.7 C (Oral) TMAX: 37.0 C (Oral) HR: 71 (Monitored) RR: 14 BP: 134/88 SpO2:93% Intake and Output 7AM Yesterday to 7AM Today Intake and Output (Last 24 hours) Intake Oral Intake 810.00 Administration Information 1240.00 Supplement Intake 0.00 Output Surgical Drain, Tube Output: 70.00 Urine Voided 2325.00 Stool Count 0.00 Urine Count 4.00 Emesis Count 0.00 Total Summary Total Intake 2050.00 Total Output 2395.00 Fluid Balance -345.00 Physical Exam Patient vidhi awake alert Bonaparte x 3 moving all extremities well. No headaches nausea. No numbness or tingling. Weight Dosing Weight: 113.6 kg (12/22/23) Medications Medications (26) Active Scheduled: (11) albuterol - ipratropium 2.5 mg-0.5 mg/3 mL Inhal Sherrie UD 3 mL, Inhalation, TIDRT atorvastatin 40 mg tablet 40 mg 1 tab(s), Oral, qDay cefTRIAXone IVP syringe 1 gram(s) 10 mL, IV Push (INT), q12h docusate-senna (Senokot S) 50 mg-8.6 mg Tablet 1 tab(s), Oral, BID gabapentin 300 mg Capsule 300 mg 1 cap(s), Oral, TID insulin lispro 100 units/mL Soln (3 mL) Give 0-5 units/dose, Subcutaneous, TIDAC metformin 500 mg Tablet 500 mg 1 tab(s), Oral, qDay omeprazole [address] capsule 40 mg 1 cap(s), Oral, qDay polyethylene glycol 3350 - UD packet 17 gram(s) 15 mL, Oral, qDay tiZANidine 4 mg tablet 4 mg 1 tab(s), Oral, TID traZODONE 100 mg Tablet 200 mg 2 tab(s), Oral, qHS Continuous: (1) NS (0.9% nacl) 1,000 mL 1,000 mL, Intravenous, 50 mL/hr PRN: (14) acetaminophen 325 mg Tablet 650 mg 2 tab(s), Oral, q4h acetaminophen-OXYcodone 325 mg-5 mg Tablet 2 tab(s), Oral, q4h acetaminophen-OXYcodone 325 mg-5 mg Tablet 1 tab(s), Oral, q4h Al hydrox/Mg hydrox/simethicone 200-200-20 mg/5 mL Susp UD 30 mL, Oral, q2h Al hydrox/Mg hydrox/simethicone 200-200-20 mg/5 mL Susp UD 30 mL, Oral, q2h albuterol - ipratropium 2.5 mg-0.5 mg/3 mL Inhal Sherrie UD 3 mL, Inhalation, q2hRT albuterol 0.083% Soln UD (2.5mg/3 mL) 2.5 mg 3 mL, Inhalation, QIDRT benzocaine-menthol (Cepacol Sore Throat) 15 mg-3.6mg lozenge 1 lozenge(s), Oral, q2h dextrose 50% Solution Disp syringe 50 mL 12.5 gram(s) 25 mL, IV Push, AsDirected docusate sodium 100 mg Capsule 100 mg 1 cap(s), Oral, BID docusate sodium 100 mg Capsule 100 mg 1 cap(s), Oral, BID hydralazine 20 mg/mL (1mL) vial 10 mg 0.5 mL, IV Push, q15min magnesium hydroxide 8% Suspension 30 mL UD 30 mL, Oral, qHS ondansetron 2 mg/ 1 mL 2 mL INJ 4 mg 2 mL, IV Push, q4h Lab Results 12/29 03:27 WBC: 7.2 Hgb: 12.1 L Hct: 35.0 L Platelet: 279 Neutrophil %: 65.8 Glucose Level: 100 Sodium Level: 141 Potassium Level: 4.4 BUN: 13.0 Creatinine Lvl (s): 0.79 EKG No qualifying data available. Assessment/Plan CSF leak Plan to begin elevation of head by 15 degrees every 2 hours. Orders: Elevate Head of Bed, 12/31/23 9:30:00 EDT, q2h, Head of Bed Challenge: may raise HOB 15 degrees every 2 hours beginning now. Digitally Signed by FALLON KAPOOR MD on 12/31/2023 09:35 AM [id number]. MICRO - Microbiology PROCEDURE: Culture Cerebrospinal Fluid with Gram Stain [*1] SOURCE: Cerebrospinal Fluid BODY SITE: COLLECTED DATE/TIME: 12/28/2023 23:17 EDT RECEIVED DATE/TIME: 12/28/2023 23:45 EDT START DATE/TIME: 12/28/2023 23:45 EDT FREE TEXT SOURCE: FINAL REPORTS Final Report [] Verified Date/Time/Personnel: 12/31/2023 08:10 EDT No growth at 48 hours. PRELIMINARY REPORTS Preliminary Report [] Verified Date/Time/Personnel: 12/29/2023 08:51 EDT No growth to date STAINS GS [] Verified Date/Time/Personnel: 12/29/2023 00:59 EDT Sedimented No organisms seen. Performing Locations *1: This test was performed at: [facility], [address] [place] [address], [id number] , [facility] ([place])12-31-2023 Note. MICRO - Microbiology PROCEDURE: Culture Wound Deep Aerobe/Anaerobe w Gram Stain [O1 *1] SOURCE: Wound (deep) BODY SITE: Back COLLECTED DATE/TIME: 12/24/2023 12:58 EDT RECEIVED DATE/TIME: 12/24/2023 15:35 EDT START DATE/TIME: 12/24/2023 15:36 EDT FREE TEXT SOURCE: SUBFASCIA FLUID FINAL REPORTS Final Report [] Verified Date/Time/Personnel: 12/31/2023 07:35 EDT No aerobes or anaerobes isolated at 7 days. PRELIMINARY REPORTS Preliminary Report [] Verified Date/Time/Personnel: 12/25/2023 11:48 EDT No growth to date STAINS GS [] Verified Date/Time/Personnel: 12/24/2023 16:41 EDT No organisms seen. Order Comments O1: Culture Wound Deep Aerobe/Anaerobe w Gram Stain (Wound Deep Culture (Aerobe and Anaerobe) w Gram Stain) [id number] Performing Locations *1: This test was performed at: [facility], [address] [place] [address], [facility] , [facility] ([place])12-30-2023 Neurological surgery Progress note Date of Service 12/30/2023 Patient reviewed and assessed with Dr. Kapoor today. Dr. Kapoor has ordered to remove SA drain today. Using sterile technique including gloves, mask, I removed the dry sterile dressing around the drain site and cleansed the drain site with ChloraPrep for 3 minutes and appropriate dry time allowed. The site was anesthetized subcutaneously with a total of 2ml of 2% lidocaine. Once the area was numb, the four retention sutures around the drain were clipped and the drain was slowly removed. Catheter fully intact upon removal. Appropriate CSF drainage from insertion site. Pressure held with dry sterile gauze. One 3-0 neurolon suture placed. Site securely closed with no further drainage. Area again cleansed with ChloraPrep and covered with dry sterile dressing. Patient tolerated procedure well, without complications. Digitally Signed by STU GAR on 12/30/2023 03:42 PM [id number] Note Date of Service 12/30/23 Patient reviewed and assessed with Dr. 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 Kapoor on 12/08/2023. Prior to surgery, he was experiencing low back pain radiating to bilateral hips and down bilateral lower extremities with paresthesias and weakness. Postoperatively, patient reported benefit with surgery and felt that low back pain and leg pain improved significantly. Patient had a routine 2-week postoperative visit in clinic on 12/21/[address] Kap[address]'s [employer] COMMISSIONER. At thisappointment, patient reported positional headaches he had been experiencing since couple days afterhe had been discharged home from the hospital postop. 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 Espinoza (providing coverage for Dr. Kapoor, who was out of town). Dr. Espinoza noted evidenceof a peripherally enhancing fluid collection at the surgical site. According to report, this measured approximately 3.8 x 3.5 x 5.5 cm and appeared consistent with a CSF leak. Per Dr. Espinoza's direction, MRI lumbar spine ordered and completed. Patient then directly admitted to the hospital and kept on strict bedrest. MRI lumbar spine completed 12/22/23 demonstrated a 6.6 cm peripheral enhancing fluid collection at the operative site causing mass effect upon the thecal sac and resulting moderate canal stenosis at L3-L4 and L4-L5. Also 10.5 cm multiloculated fluid collection in the subcutaneous fat. 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 Imaging was reviewed thoroughly by Dr. Espinoza. Due to these findings, Dr. Espinoza recommended surgical intervention with the patient and his wifeto explore the lumbar wound and repair CSF leak if encountered. Patient elected to proceed. Patient underwent a lumbar wound exploration with microscopic duraplasty and lumbar drain placementwith Dr. Espinoza on 12/24/2023. He was taken to the SICU postoperatively. He remained flat in bed for 72 hours post-op, draining 10-15 ml of CSF per hour without developing headaches. Drain was then clamped on 12/28/23. HOB slowly raised to 45 degrees. Patient denied any headaches with HOB elevation. CT myelogram completed afternoon of 12/28/[address] Kapoor and notedto demonstrate extensive contrast material within the laminectomy bed consistent with continued CSFleak. Because of this, patient's HOB returned flat, and order placed to continue CSF drainage (10 ml/hr). Yesterday morning, patient again denied any complaints of headache. After discussion with patient, Dr. Kapoor ordered for lumbar drain to be clamped, and patient's head of bed slowly raised 10-15 degrees every 2 hours. Notified by bedside nurse yesterday afternoon that patient's head of bed was at 40degrees and patient was requesting to ambulate. He denied any headaches. In addition, she provided that she had to change patient's lumbar drain dressing twice throughout the day due to saturation with drainage. Upon my examination, lumbar drain gauze/Tegaderm saturated with light serosanguineous fluid, as well as the absorbent pad underneath of him. This dressing was torn down. It was clear that patient had edema to the right of the lumbar drain, and patient was actively draining around the lumbar drain tubing. Surgical incision was assessed and remained well-approximated with surgical glueover top. No active drainage from surgical incision. Patient was then discussed with Dr. Kapoor who recommended lying the patient flat and returning to draining 10 to 15 mL of CSF per hour. This morning, patient evaluated at the bedside with Dr. Kapoor. Nursing staff provides that the patient's dressings continue to be saturated, regardless of draining CSF hourly. Patient again denies anyheadaches. Only complaint is right- sided back discomfort, which is likely due to positioning. Again, the dressing was torn down. Continues with swelling/palpable fluid collection to the right of the lumbar drain site. Area was cleansed with chlorhexidine, and new pressure type dressing applied. Otherwise, patient provides that he feels well. Denies any new/acute radicular pain to his legs or new/acute paresthesias or weakness. Provides that he has been tolerating p.o. intake well without nausea or vomiting. He is voiding without difficulty. Having BMs. On exam, he remains alert and oriented x 4. His speech is clear and fluent, moving all extremities spontaneously. Continues with strong BLE motor strength with intact sensation to light touch. Objective Vitals and Measurements T: 36.9 C (Oral) TMIN: 36.9 C (Oral) TMAX: 37.1 C (Oral) HR: 71 (Monitored) RR: 17 BP: 135/87 SpO2:95% Intake and Output 7AM Yesterday to 7AM Today Intake and Output (Last 24 hours) Intake Oral Intake 1720.00 Administration Information 1945.00 Output Surgical Drain, Tube Output: 255.00 Urine Voided 4490.00 Stool Volume 0.00 Stool Count 0.00 Total Summary Total Intake 3665.00 Total Output 4745.00 Fluid Balance -1080.00 Physical Exam In addition to HPI, respirations are easy and unlabored, lungs are clear throughout. He is saturating well on room air. Regular heart rate and rhythm, S1-S2. Abdomen is obese, soft and nondistended. BSP x 4. He is voiding without difficulty. Weight Dosing Weight: 113.6 kg (12/22/23) Medications Medications (26) Active Scheduled: (11) albuterol - ipratropium 2.5 mg-0.5 mg/3 mL Inhal Sherrie UD 3 mL, Inhalation, TIDRT atorvastatin 40 mg tablet 40 mg 1 tab(s), Oral, qDay cefTRIAXone IVP syringe 1 gram(s) 10 mL, IV Push (INT), q12h docusate-senna (Senokot S) 50 mg-8.6 mg Tablet 1 tab(s), Oral, BID gabapentin 300 mg Capsule 300 mg 1 cap(s), Oral, TID insulin lispro 100 units/mL Soln (3 mL) Give 0-5 units/dose, Subcutaneous, TIDAC metformin 500 mg Tablet 500 mg 1 tab(s), Oral, qDay omeprazole [address] capsule 40 mg 1 cap(s), Oral, qDay polyethylene glycol 3350 - UD packet 17 gram(s) 15 mL, Oral, qDay tiZANidine 4 mg tablet 4 mg 1 tab(s), Oral, TID traZODONE 100 mg Tablet 200 mg 2 tab(s), Oral, qHS Continuous: (1) NS (0.9% nacl) 1,000 mL 1,000 mL, Intravenous, 50 mL/hr PRN: (14) acetaminophen 325 mg Tablet 650 mg 2 tab(s), Oral, q4h acetaminophen-OXYcodone 325 mg-5 mg Tablet 2 tab(s), Oral, q4h acetaminophen-OXYcodone 325 mg-5 mg Tablet 1 tab(s), Oral, q4h Al hydrox/Mg hydrox/simethicone 200-200-20 mg/5 mL Susp UD 30 mL, Oral, q2h Al hydrox/Mg hydrox/simethicone 200-200-20 mg/5 mL Susp UD 30 mL, Oral, q2h albuterol - ipratropium 2.5 mg-0.5 mg/3 mL Inhal Sherrie UD 3 mL, Inhalation, q2hRT albuterol 0.083% Soln UD (2.5mg/3 mL) 2.5 mg 3 mL, Inhalation, QIDRT benzocaine-menthol (Cepacol Sore Throat) 15 mg-3.6mg lozenge 1 lozenge(s), Oral, q2h dextrose 50% Solution Disp syringe 50 mL 12.5 gram(s) 25 mL, IV Push, AsDirected docusate sodium 100 mg Capsule 100 mg 1 cap(s), Oral, BID docusate sodium 100 mg Capsule 100 mg 1 cap(s), Oral, BID hydralazine 20 mg/mL (1mL) vial 10 mg 0.5 mL, IV Push, q15min magnesium hydroxide 8% Suspension 30 mL UD 30 mL, Oral, qHS ondansetron 2 mg/ 1 mL 2 mL INJ 4 mg 2 mL, IV Push, q4h Lab Results 12/29 03:27 WBC: 7.2 Hgb: 12.1 L Hct: 35.0 L Platelet: 279 Neutrophil %: 65.8 Glucose Level: 100 Sodium Level: 141 Potassium Level: 4.4 BUN: 13.0 Creatinine Lvl (s): 0.79 /02 04:44 WBC: 7.6 Hgb: 12.0 L Hct: 34.7 L Platelet: 243 Neutrophil %: 61.5 Assessment/Plan Post lumbar laminectomy with dural defect and CSF leak s/p postlaminectomy wound exploration with microscopic duraplasty, lumbar drain placement, POD #6 Postoperatively, patient remained with HOB flat for 72 hours, draining 10-15 mL of CSF per hour. Hetolerated this well. Drain was then clamped on 12/28/2023 and head of bed was slowly raised to 45 degrees. Patient denied any headaches with head of bed elevation. CT myelogram completed afternoon of 12/28/2023 which demonstrated extensive contrast material within the laminectomy bed consistent with continued CSF leak. Because of this, patient's head of bed returned flat and order was placed to continue CSF drainage of 10 mL/hr. 12/29/2023, lumbar drain was clamped and did begin to challenge patient with slowly raising head of bed 10 to 15 degrees every [address] Kapoor. Once at 40 degrees, was notified by nursing staff that patient was without headaches, but requesting to get out of bed. Nursing noted that patient's gauze dressing and Tegaderm over top of his lumbar drain insertion site have been changed twice due to saturation. Upon reevaluation, patient found again with saturated gauze dressing, as well as edema/fluid collection palpable to the right of the drain site. Fluid visualized dripping from lumbar drain site while clamped. Per Dr. Kapoor, yesterday evening, patient's head of bed was returned to flat, and order placed for hourly CSF drainage of 15 mL/hour. This morning, patient remains without headache. Tolerated CSF drainage overnight. On my exam, dressing over top of lumbar drain again is saturated. This was removed and cleansed. Patient continued with palpable fluid collection to the right of the lumbar drain site. Again, noted to have drainage of CSF around lumbar drain site regardless of hourly drains. Surgical incision itself remains flat, well-approximated. Covered with Dermabond. No drainage, erythema, or edema noted. Dr. Kapoor discussed updated plan of care with the patient. At this time, will reapply dressing to lumbar drain site and continue 15 mL of CSF drainage hourly. Will reevaluate patient's dressing this afternoon. If the dressing becomes saturated again, will consider discontinuing the drain, keeping the head of bed flat, and monitoring patient for headache. Continue to send CSF for analysis nightly. Continue prophylactic Rocephin while drain remains in place. Patient is agreeable with this plan. Does continue to complain of right-sided back pain. Endorses some relief with tizanidine. Will schedule 4mg tizanidine 3 times daily[address] Please see Dr. Kapoor's addendum for further details regarding neurosurgical assessment/plan of care. Digitally Signed by STU GAR on 12/30/2023 10:49 AM [id number] Note Date of Service 12/30/23 Patient reviewed and assessed with Dr. 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 Kapoor on 12/08/2023. Prior to surgery, he was experiencing low back pain radiating to bilateral hips and down bilateral lower extremities with paresthesias and weakness. Postoperatively, patient reported benefit with surgery and felt that low back pain and leg pain improved significantly. Patient had a routine 2-week postoperative visit in clinic on 12/21/[address] Kapoor's [employer] COMMISSIONER. At thisappointment, patient reported positional headaches he had been experiencing since couple days afterhe had been discharged home from the hospital postop. 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 Espinoza (providing coverage for Dr. Kapoor, who was out of town). Dr. Espinoza noted evidenceof a peripherally enhancing fluid collection at the surgical site. According to report, this measured approximately 3.8 x 3.5 x 5.5 cm and appeared consistent with a CSF leak. Per Dr. Espinoza's direction, MRI lumbar spine ordered and completed. Patient then directly admitted to the hospital and kept on strict bedrest. MRI lumbar spine completed 12/22/23 demonstrated a 6.6 cm peripheral enhancing fluid collection at the operative site causing mass effect upon the thecal sac and resulting moderate canal stenosis at L3-L4 and L4-L5. Also 10.5 cm multiloculated fluid collection in the subcutaneous fat. 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 Imaging was reviewed thoroughly by Dr. Espinoza. Due to these findings, Dr. Espinoza recommended surgical intervention with the patient and his wifeto explore the lumbar wound and repair CSF leak if encountered. Patient elected to proceed. Patient underwent a lumbar wound exploration with microscopic duraplasty and lumbar drain placementwith Dr. Espinoza on 12/24/2023. He was taken to the SICU postoperatively. He remained flat in bed for 72 hours post-op, draining 10-15 ml of CSF per hour without developing headaches. Drain was then clamped on 12/28/23. HOB slowly raised to 45 degrees. Patient denied any headaches with HOB elevation. CT myelogram completed afternoon of 12/28/[address] Kapoor and notedto demonstrate extensive contrast material within the laminectomy bed consistent with continued CSFleak. Because of this, patient's HOB returned flat, and order placed to continue CSF drainage (10 ml/hr). Yesterday morning, patient again denied any complaints of headache. After discussion with patient, Dr. Kapoor ordered for lumbar drain to be clamped, and patient's head of bed slowly raised 10-15 degrees every 2 hours. Notified by bedside nurse yesterday afternoon that patient's head of bed was at 40degrees and patient was requesting to ambulate. He denied any headaches. In addition, she provided that she had to change patient's lumbar drain dressing twice throughout the day due to saturation with drainage. Upon my examination, lumbar drain gauze/Tegaderm saturated with light serosanguineous fluid, as well as the absorbent pad underneath of him. This dressing was torn down. It was clear that patient had edema to the right of the lumbar drain, and patient was actively draining around the lumbar drain tubing. Surgical incision was assessed and remained well-approximated with surgical glue over top. No active drainage from surgical incision. Patient was then discussed with Dr. Kapoor who recommended lying the patient flat and returning to draining 10 to 15 mL of CSF per hour. This morning, patient evaluated at the bedside with Dr. Kapoor. Nursing staff provides that the patient's dressings continue to be saturated, regardless of draining CSF hourly. Patient again denies anyheadaches. Only complaint is right- sided back discomfort, which is likely due to positioning. Again, the dressing was torn down. Continues with swelling/palpable fluid collection to the right of thelumbar drain site. Area was cleansed with chlorhexidine, and new pressure type dressing applied. Otherwise, patient provides that he feels well. Denies any new/acute radicular pain to his legs or new/acute paresthesias or weakness. Provides that he has been tolerating p.o. intake well without nausea or vomiting. He is voiding without difficulty. Having BMs. On exam, he remains alert and oriented x 4. His speech is clear and fluent, moving all extremities spontaneously. Continues with strong BLE motor strength with intact sensation to light touch. Objective Vitals and Measurements T: 36.9 C (Oral) TMIN: 36.9 C (Oral) TMAX: 37.1 C (Oral) HR: 71 (Monitored) RR: 17 BP: 135/87 SpO2:95% Intake and Output 7AM Yesterday to 7AM Today Intake and Output (Last 24 hours) Intake Oral Intake 1720.00 Administration Information 1945.00 Output Surgical Drain, Tube Output: 255.00 Urine Voided 4490.00 Stool Volume 0.00 Stool Count 0.00 Total Summary Total Intake 3665.00 Total Output 4745.00 Fluid Balance -1080.00 Physical Exam In addition to HPI, respirations are easy and unlabored, lungs are clear throughout. He is saturating well on room air. Regular heart rate and rhythm, S1-S2. Abdomen is obese, soft and nondistended. BSP x 4. He is voiding without difficulty. Weight Dosing Weight: 113.6 kg (12/22/23) Medications Medications (26) Active Scheduled: (11) albuterol - ipratropium 2.5 mg-0.5 mg/3 mL Inhal Sherrie UD 3 mL, Inhalation, TIDRT atorvastatin 40 mg tablet 40 mg 1 tab(s), Oral, qDay cefTRIAXone IVP syringe 1 gram(s) 10 mL, IV Push (INT), q12h docusate-senna (Senokot S) 50 mg-8.6 mg Tablet 1 tab(s), Oral, BID gabapentin 300 mg Capsule 300 mg 1 cap(s), Oral, TID insulin lispro 100 units/mL Soln (3 mL) Give 0-5 units/dose, Subcutaneous, TIDAC metformin 500 mg Tablet 500 mg 1 tab(s), Oral, qDay omeprazole [address] capsule 40 mg 1 cap(s), Oral, qDay polyethylene glycol 3350 - UD packet 17 gram(s) 15 mL, Oral, qDay tiZANidine 4 mg tablet 4 mg 1 tab(s), Oral, TID traZODONE 100 mg Tablet 200 mg 2 tab(s), Oral, qHS Continuous: (1) NS (0.9% nacl) 1,000 mL 1,000 mL, Intravenous, 50 mL/hr PRN: (14) acetaminophen 325 mg Tablet 650 mg 2 tab(s), Oral, q4h acetaminophen-OXYcodone 325 mg-5 mg Tablet 2 tab(s), Oral, q4h acetaminophen-OXYcodone 325 mg-5 mg Tablet 1 tab(s), Oral, q4h Al hydrox/Mg hydrox/simethicone 200-200-20 mg/5 mL Susp UD 30 mL, Oral, q2h Al hydrox/Mg hydrox/simethicone 200-200-20 mg/5 mL Susp UD 30 mL, Oral, q2h albuterol - ipratropium 2.5 mg-0.5 mg/3 mL Inhal Sherrie UD 3 mL, Inhalation, q2hRT albuterol 0.083% Soln UD (2.5mg/3 mL) 2.5 mg 3 mL, Inhalation, QIDRT benzocaine-menthol (Cepacol Sore Throat) 15 mg-3.6mg lozenge 1 lozenge(s), Oral, q2h dextrose 50% Solution Disp syringe 50 mL 12.5 gram(s) 25 mL, IV Push, AsDirected docusate sodium 100 mg Capsule 100 mg 1 cap(s), Oral, BID docusate sodium 100 mg Capsule 100 mg 1 cap(s), Oral, BID hydralazine 20 mg/mL (1mL) vial 10 mg 0.5 mL, IV Push, q15min magnesium hydroxide 8% Suspension 30 mL UD 30 mL, Oral, qHS ondansetron 2 mg/ 1 mL 2 mL INJ 4 mg 2 mL, IV Push, q4h Lab Results 12/29 03:27 WBC: 7.2 Hgb: 12.1 L Hct: 35.0 L Platelet: 279 Neutrophil %: 65.8 Glucose Level: 100 Sodium Level: 141 Potassium Level: 4.4 BUN: 13.0 Creatinine Lvl (s): 0.79 /02 04:44 WBC: 7.6 Hgb: 12.0 L Hct: 34.7 L Platelet: 243 Neutrophil %: 61.5 Assessment/Plan Post lumbar laminectomy with dural defect and CSF leak s/p postlaminectomy wound exploration with microscopic duraplasty, lumbar drain placement, POD #6 Postoperatively, patient remained with HOB flat for 72 hours, draining 10-15 mL of CSF per hour. Hetolerated this well. Drain was then clamped on 12/28/2023 and head of bed was slowly raised to 45 degrees. Patient denied any headaches with head of bed elevation. CT myelogram completed afternoon of 12/28/2023 which demonstrated extensive contrast material within the laminectomy bed consistent with continued CSF leak. Because of this, patient's head of bed returned flat and order was placed to continue CSF drainage of 10 mL/hr. 12/29/2023, lumbar drain was clamped and did begin to challenge patient with slowly raising head of bed 10 to 15 degrees every [address] Kapoor. Once at 40 degrees, was notified by nursing staff that patient was without headaches, but requesting to get out of bed. Nursing noted that patient's gauze dressing and Tegaderm over top of his lumbar drain insertion site have been changed twice due to saturation. Upon reevaluation, patient found again with saturated gauze dressing, as well as edema/fluid collection palpable to the right of the drain site. Fluid visualized dripping from lumbar drain site while clamped. Per Dr. Kapoor, yesterday evening, patient's head of bed was returned to flat, and order placed for hourly CSF drainage of 15 mL/hour. This morning, patient remains without headache. Tolerated CSF drainage overnight. On my exam, dressing over top of lumbar drain again is saturated. This was removed and cleansed. Patient continued with palpable fluid collection to the right of the lumbar drain site. Again, noted to have drainage of CSF around lumbar drain site regardless of hourly drains. Surgical incision itself remains flat, well-approximated. Covered with Dermabond. No drainage, erythema, or edema noted. Dr. Kapoor discussed updated plan of care with the patient. At this time, will reapply dressing to lumbar drain site and continue 15 mL of CSF drainage hourly. Will reevaluate patient's dressing this afternoon. If the dressing becomes saturated again, will consider discontinuing the drain, keeping the head of bed flat, and monitoring patient for headache. Continue to send CSF for analysis nightly. Continue prophylactic Rocephin while drain remains in place. Patient is agreeable with this plan. Does continue to complain of right-sided back pain. Endorses some relief with tizanidine. Will schedule 4mg tizanidine [address] times [address] Please see Dr. Kapoor's addendum for further details regarding neurosurgical assessment/plan of care. Digitally Signed by STU GAR on 12/30/2023 10:49 AM [id number] Note. MICRO - Microbiology PROCEDURE: Culture Cerebrospinal Fluid with Gram Stain [*1] SOURCE: Shunt Fluid BODY SITE: COLLECTED DATE/TIME: 12/27/2023 21:54 EDT RECEIVED DATE/TIME: 12/27/2023 22:23 EDT START DATE/TIME: 12/27/2023 22:23 EDT FREE TEXT SOURCE: FINAL REPORTS Final Report [] Verified Date/Time/Personnel: 12/30/2023 08:21 EDT No growth at 48 hours. PRELIMINARY REPORTS Preliminary Report [] Verified Date/Time/Personnel: 12/28/2023 09:12 EDT No growth to date STAINS GS [] Verified Date/Time/Personnel: 12/27/2023 22:55 EDT Rare Mononuclear cells Rare Polymorphonuclear cells No organisms seen. Performing Locations *1: This test was performed at: [address], [facility] , [facility] ([place])12-29-2023 Note Date of Service 12/29/23 Patient reviewed and assessed with Dr. Kapoor Neurosurgical CC: Post lumbar laminectomy dural defect and CSF leak s/p postlaminectomy wound exploration with microscopic duraplasty, lumbar drain placement, POD #5 This is a 48-year-old male who is known to neurosurgery service as he recently underwent L4-S1 laminectomy with bilateral foraminotomies by Dr. Kapoor on 12/08/2023. Prior to surgery, he was experiencing low back pain radiating to bilateral hips and down bilateral lower extremities with paresthesias and weakness. Postoperatively, patient reported benefit with surgery and felt that low back pain and leg pain improved significantly. Patient had a routine 2-week postoperative visit in clinic on 12/21/[address] Kap[address]'s STRE[employer] COMMISSIONER. At thisappointment, patient reported positional headaches he had been experiencing since couple days afterhe had been discharged home from the hospital postop. 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 Espinoza (providing coverage for Dr. Kapoor, who was out of town). Dr. Espinoza noted evidenceof a peripherally enhancing fluid collection at the surgical site. According to report, this measured approximately 3.8 x 3.5 x 5.5 cm and appeared consistent with a CSF leak. Per Dr. Espinoza's direction, MRI lumbar spine ordered and completed. Patient then directly admitted to the hospital and kept on strict bedrest. MRI lumbar spine completed 12/22/23 demonstrated a 6.6 cm peripheral enhancing fluid collection at the operative site causing mass effect upon the thecal sac and resulting moderate canal stenosis at L3-L4 and L4-L5. Also 10.5 cm multiloculated fluid collection in the subcutaneous fat. 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 Imaging was reviewed thoroughly by Dr. Espinoza. Due to these findings, Dr. Espinoza recommended surgical intervention with the patient and his wifeto explore the lumbar wound and repair CSF leak if encountered. Patient elected to proceed. Patient underwent a lumbar wound exploration with microscopic duraplasty and lumbar drain placementwith Dr. Espinoza on 12/24/2023. He was taken to the SICU postoperatively. He remained flat in bed for 72 hours post-op, draining 10-15 ml of CSF per hour without developing headaches. Drain was then clamped on 12/28/23. HOB slowly raised to 45 degrees. Patient denied any headaches with HOB elevation. CT myelogram completed afternoon of 12/28/[address] Kapoor and notedto demonstrate extensive contrast material within the laminectomy bed consistent with continued CSFleak. Because of this, patient's HOB returned flat, and order placed to continue CSF drainage (10 ml/hr). This morning, patient is POD #5. He has tolerated drainage of CSF overnight without headaches, nausea, or vomiting. Last drain this morning was at 7 AM. Lumbar drain output overnight was 105mL/8 hourshift. Patient provides that he is doing well this morning. Does note overnight, with hourly drainsfrom lumbar drain, he did experience some right-sided back pain. It was explained to the patient that this could be due to nerve root irritation given placement of lumbar drain. Patient does provide this pain has improved with route returner dose of tizanidine. Denies any new/acute radicular pain tohis legs. Denies any new/acute paresthesias or weakness. On exam, he is alert and oriented x 4, his speech is clear and fluent, MYERS spontaneously, strong bilateral lower extremity motor strength, sensation intact to light touch throughout Objective Vitals and Measurements T: 36.8 C (Oral) TMIN: 36.4 C (Oral) TMAX: 37.4 C (Oral) HR: 61 (Monitored) RR: 12 BP: 116/53 SpO2:98% Intake and Output 7AM Yesterday to 7AM Today Intake and Output (Last 24 hours) Intake Oral Intake 1520.00 Administration Information 2358.00 Output Surgical Drain, Tube Output: 240.00 Urine Voided 1975.00 Stool Count 0.00 Total Summary Total Intake 3878.00 Total Output 2215.00 Fluid Balance 1663.00 Physical Exam See HPI. In addition, respirations are easy and unlabored, lungs are clear throughout. Saturating well on room air. Regular heart rate and rhythm, S1-S2. Abdomen is soft, nondistended. BSP x 4. Passing flatus. Last BM 12/28/2023. He is voiding without difficulty. Lumbar drain site dressing remains dry and intact. No drainage or edema surrounding. In addition, surgical site remains covered with silver alginate dressing which also remains clean, dry, and intact. Weight Dosing Weight: 113.6 kg (12/22/23) Medications Medications (26) Active Scheduled: (10) albuterol - ipratropium 2.5 mg-0.5 mg/3 mL Inhal Sherrie UD 3 mL, Inhalation, TIDRT atorvastatin 40 mg tablet 40 mg 1 tab(s), Oral, qDay cefTRIAXone IVP syringe 1 gram(s) 10 mL, IV Push (INT), q12h docusate-senna (Senokot S) 50 mg-8.6 mg Tablet 1 tab(s), Oral, BID gabapentin 300 mg Capsule 300 mg 1 cap(s), Oral, TID insulin lispro 100 units/mL Soln (3 mL) Give 0-5 units/dose, Subcutaneous, TIDAC metformin 500 mg Tablet 500 mg 1 tab(s), Oral, qDay omeprazole [address] capsule 40 mg 1 cap(s), Oral, qDay polyethylene glycol 3350 - UD packet 17 gram(s) 15 mL, Oral, qDay traZODONE 100 mg Tablet 200 mg 2 tab(s), Oral, qHS Continuous: (1) NS (0.9% nacl) 1,000 mL 1,000 mL, Intravenous, 50 mL/hr PRN: (15) acetaminophen 325 mg Tablet 650 mg 2 tab(s), Oral, q4h acetaminophen-OXYcodone 325 mg-5 mg Tablet 2 tab(s), Oral, q4h acetaminophen-OXYcodone 325 mg-5 mg Tablet 1 tab(s), Oral, q4h Al hydrox/Mg hydrox/simethicone 200-200-20 mg/5 mL Susp UD 30 mL, Oral, q2h Al hydrox/Mg hydrox/simethicone 200-200-20 mg/5 mL Susp UD 30 mL, Oral, q2h albuterol - ipratropium 2.5 mg-0.5 mg/3 mL Inhal Sherrie UD 3 mL, Inhalation, q2hRT albuterol 0.083% Soln UD (2.5mg/3 mL) 2.5 mg 3 mL, Inhalation, QIDRT benzocaine-menthol (Cepacol Sore Throat) 15 mg-3.6mg lozenge 1 lozenge(s), Oral, q2h dextrose 50% Solution Disp syringe 50 mL 12.5 gram(s) 25 mL, IV Push, AsDirected docusate sodium 100 mg Capsule 100 mg 1 cap(s), Oral, BID docusate sodium 100 mg Capsule 100 mg 1 cap(s), Oral, BID hydralazine 20 mg/mL (1mL) vial 10 mg 0.5 mL, IV Push, q15min magnesium hydroxide 8% Suspension 30 mL UD 30 mL, Oral, qHS ondansetron 2 mg/ 1 mL 2 mL INJ 4 mg 2 mL, IV Push, q4h tiZANidine 4 mg tablet 4 mg 1 tab(s), Oral, TID Lab Results 12/28 04:44 WBC: 7.6 Hgb: 12.0 L Hct: 34.7 L Platelet: 243 Neutrophil %: 61.5 12/27 05:05 WBC: 10.6 Hgb: 13.3 Hct: 38.6 L Platelet: 271 Neutrophil %: 80.0 H Glucose Level: 127 H Sodium Level: 137 Potassium Level: 4.3 BUN: 8.0 Creatinine Lvl (s): 0.68 Imaging Results and Diagnostics CT Spine Lumbar w/ Contrast Result Date: December 28, 2023 Verified By: KRISTEN BOWDEN MD CLINICAL STATEMENT: IMPRESSION: Extensive contrast material in the laminectomy bed, some combination of CSFand or drainleak. Mild stenosis in the lower lumbar spine, some combination of surgical changesand extruded stenosis increased since the MR of 21 December. The cauda appears grossly unremarkable through the lower [id number], and is notdiscretely visualized below this level, due mainly to stenosis. Assessment/Plan Post lumbar laminectomy with dural defect and CSF leak s/p postlaminectomy wound exploration with microscopic duraplasty, lumbar drain placement, POD #5 Postoperatively, patient remained with HOB flat for 72 hours, draining 10-15 mL of CSF per hour. Hetolerated this well. Drain was then clamped on 12/28/2023 and head of bed was slowly raised to 45 degrees. Patient denied any headaches with head of bed elevation. CT myelogram completed afternoon of 12/28/2023 which demonstrated extensive contrast material within the laminectomy bed consistent with continued CSF leak. Because of this, patient's head of bed returned flat and order was placed to continue CSF drainage of 10 mL/hr. Patient tolerated CSF drainage overnight. Last drain at 7 AM this morning. Per Dr. Kapoor, will clamp lumbar drain today. He plans to slowly increase head of bed this morning to evaluate patient's response. Order placed to increase HOB 10-15 degrees every 2 hours as toleratedby the patient. Please notify neurosurgery promptly if patient would develop headaches with CSF drainage. Once patient has reached HOB 90 degrees, notify neurosurgery for further direction. Continue to send CSF for analysis nightly. Continue prophylactic Rocephin while drain remains in place. Lumbar dressings remain clean, dry, and intact, without palpable fluid collection surrounding. Continue to monitor dressings. If they become saturated, change dressing with new gauze and Tegaderm andnotify neurosurgery. Patient did have intermittent complaint of right sided back pain with CSF drains. Tizanidine ordered, patient provides that this did help. Certainly could be related to nerve irritation from the lumbar drain. Will continue to monitor. Trial Management Associate team following for medical management while in ICU. Appreciate their input. Patient is okay for stepdown status, but to remain in SICU stepdown. Please see Dr. Kapoor's addendum for further details regarding neurosurgical assessment/plan of care. Digitally Signed by CONGSTU JESSICA on 12/29/2023 12:25 PM [id number] Note Date of Service 12/29/23 Patient reviewed and assessed with Dr. Kapoor Neurosurgical CC: Post lumbar laminectomy dural defect and CSF leak s/p postlaminectomy wound exploration with microscopic duraplasty, lumbar drain placement, POD #5 This is a 48-year-old male who is known to neurosurgery service as he recently underwent L4-S1 laminectomy with bilateral foraminotomies by Dr. Kapoor on 12/08/2023. Prior to surgery, he was experiencing low back pain radiating to bilateral hips and down bilateral lower extremities with paresthesias and weakness. Postoperatively, patient reported benefit with surgery and felt that low back pain and leg pain improved significantly. Patient had a routine 2-week postoperative visit in clinic on 12/21/[address] Kap[address]'s [employer]RE[employer] COMMISSIONER. At thisappointment, patient reported positional headaches he had been experiencing since couple days afterhe had been discharged home from the hospital postop. 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 Espinoza (providing coverage for Dr. Kapoor, who was out of town). Dr. Espinoza noted evidenceof a peripherally enhancing fluid collection at the surgical site. According to report, this measured approximately 3.8 x 3.5 x 5.5 cm and appeared consistent with a CSF leak. Per Dr. Espinoza's direction, MRI lumbar spine ordered and completed. Patient then directly admitted to the hospital and kept on strict bedrest. MRI lumbar spine completed 12/22/23 demonstrated a 6.6 cm peripheral enhancing fluid collection at the operative site causing mass effect upon the thecal sac and resulting moderate canal stenosis at L3-L4 and L4-L5. Also 10.5 cm multiloculated fluid collection in the subcutaneous fat. 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 Imaging was reviewed thoroughly by Dr. Espinoza. Due to these findings, Dr. Espinoza recommended surgical intervention with the patient and his wifeto explore the lumbar wound and repair CSF leak if encountered. Patient elected to proceed. Patient underwent a lumbar wound exploration with microscopic duraplasty and lumbar drain placementwith Dr. Espinoza on 12/24/2023. He was taken to the SICU postoperatively. He remained flat in bed for 72 hours post-op, draining 10-15 ml of CSF per hour without developing headaches. Drain was then clamped on 12/28/23. HOB slowly raised to 45 degrees. Patient denied any headaches with HOB elevation. CT myelogram completed afternoon of 12/28/[address] Kapoor and notedto demonstrate extensive contrast material within the laminectomy bed consistent with continued CSFleak. Because of this, patient's HOB returned flat, and order placed to continue CSF drainage (10 ml/hr). This morning, patient is POD #5. He has tolerated drainage of CSF overnight without headaches, nausea, or vomiting. Last drain this morning was at 7 AM. Lumbar drain output overnight was 105mL/8 hourshift. Patient provides that he is doing well this morning. Does note overnight, with hourly drainsfrom lumbar drain, he did experience some right-sided back pain. It was explained to the patient that this could be due to nerve root irritation given placement of lumbar drain. Patient does provide this pain has improved with route returner dose of tizanidine. Denies any new/acute radicular pain tohis legs. Denies any new/acute paresthesias or weakness. On exam, he is alert and oriented x 4, his speech is clear and fluent, MYERS spontaneously, strong bilateral lower extremity motor strength, sensation intact to light touch throughout Objective Vitals and Measurements T: 36.8 C (Oral) TMIN: 36.4 C (Oral) TMAX: 37.4 C (Oral) HR: 61 (Monitored) RR: 12 BP: 116/53 SpO2:98% Intake and Output 7AM Yesterday to 7AM Today Intake and Output (Last 24 hours) Intake Oral Intake 1520.00 Administration Information 2358.00 Output Surgical Drain, Tube Output: 240.00 Urine Voided 1975.00 Stool Count 0.00 Total Summary Total Intake 3878.00 Total Output 2215.00 Fluid Balance 1663.00 Physical Exam See HPI. In addition, respirations are easy and unlabored, lungs are clear throughout. Saturating well on room air. Regular heart rate and rhythm, S1-S2. Abdomen is soft, nondistended. BSP x 4. Passing flatus. Last BM 12/28/2023. He is voiding without difficulty. Lumbar drain site dressing remains dry and intact. No drainage or edema surrounding. In addition, surgical site remains covered with silver alginate dressing which also remains clean, dry, and intact. Weight Dosing Weight: 113.6 kg (12/22/23) Medications Medications (26) Active Scheduled: (10) albuterol - ipratropium 2.5 mg-0.5 mg/3 mL Inhal Sherrie UD 3 mL, Inhalation, TIDRT atorvastatin 40 mg tablet 40 mg 1 tab(s), Oral, qDay cefTRIAXone IVP syringe 1 gram(s) 10 mL, IV Push (INT), q12h docusate-senna (Senokot S) 50 mg-8.6 mg Tablet 1 tab(s), Oral, BID gabapentin 300 mg Capsule 300 mg 1 cap(s), Oral, TID insulin lispro 100 units/mL Soln (3 mL) Give 0-5 units/dose, Subcutaneous, TIDAC metformin 500 mg Tablet 500 mg 1 tab(s), Oral, qDay omeprazole [address] capsule 40 mg 1 cap(s), Oral, qDay polyethylene glycol 3350 - UD packet 17 gram(s) 15 mL, Oral, qDay traZODONE 100 mg Tablet 200 mg 2 tab(s), Oral, qHS Continuous: (1) NS (0.9% nacl) 1,000 mL 1,000 mL, Intravenous, 50 mL/hr PRN: (15) acetaminophen 325 mg Tablet 650 mg 2 tab(s), Oral, q4h acetaminophen-OXYcodone 325 mg-5 mg Tablet 2 tab(s), Oral, q4h acetaminophen-OXYcodone 325 mg-5 mg Tablet 1 tab(s), Oral, q4h Al hydrox/Mg hydrox/simethicone 200-200-20 mg/5 mL Susp UD 30 mL, Oral, q2h Al hydrox/Mg hydrox/simethicone 200-200-20 mg/5 mL Susp UD 30 mL, Oral, q2h albuterol - ipratropium 2.5 mg-0.5 mg/3 mL Inhal Sherrie UD 3 mL, Inhalation, q2hRT albuterol 0.083% Soln UD (2.5mg/3 mL) 2.5 mg 3 mL, Inhalation, QIDRT benzocaine-menthol (Cepacol Sore Throat) 15 mg-3.6mg lozenge 1 lozenge(s), Oral, q2h dextrose 50% Solution Disp syringe 50 mL 12.5 gram(s) 25 mL, IV Push, AsDirected docusate sodium 100 mg Capsule 100 mg 1 cap(s), Oral, BID docusate sodium 100 mg Capsule 100 mg 1 cap(s), Oral, BID hydralazine 20 mg/mL (1mL) vial 10 mg 0.5 mL, IV Push, q15min magnesium hydroxide 8% Suspension 30 mL UD 30 mL, Oral, qHS ondansetron 2 mg/ 1 mL 2 mL INJ 4 mg 2 mL, IV Push, q4h tiZANidine 4 mg tablet 4 mg 1 tab(s), Oral, TID Lab Results 12/28 04:44 WBC: 7.6 Hgb: 12.0 L Hct: 34.7 L Platelet: 243 Neutrophil %: 61.5 12/27 05:05 WBC: 10.6 Hgb: 13.3 Hct: 38.6 L Platelet: 271 Neutrophil %: 80.0 H Glucose Level: 127 H Sodium Level: 137 Potassium Level: 4.3 BUN: 8.0 Creatinine Lvl (s): 0.68 Imaging Results and [address] CT Spine Lumbar w/ Contrast Result Date: December 28, 2023 Verified By: KRISTEN BOWDEN MD CLINICAL STATEMENT: IMPRESSION: Extensive contrast material in the laminectomy bed, some combination of CSFand or drainleak. Mild stenosis in the lower lumbar spine, some combination of surgical changesand extruded stenosis increased since the MR of 21 December. The cauda appears grossly unremarkable through the lower [id number], and is notdiscretely visualized below this level, due mainly to stenosis. Assessment/Plan Post lumbar laminectomy with dural defect and CSF leak s/p postlaminectomy wound exploration with microscopic duraplasty, lumbar drain placement, POD #5 Postoperatively, patient remained with HOB flat for 72 hours, draining 10-15 mL of CSF per hour. Hetolerated this well. Drain was then clamped on 12/28/2023 and head of bed was slowly raised to 45 degrees. Patient denied any headaches with head of bed elevation. CT myelogram completed afternoon of 12/28/2023 which demonstrated extensive contrast material within the laminectomy bed consistent with continued CSF leak. Because of this, patient's head of bed returned flat and order was placed to continue CSF drainage of 10 mL/hr. Patient tolerated CSF drainage overnight. Last drain at 7 AM this morning. Per Dr. Kapoor, will clamp lumbar drain today. He plans to slowly increase head of bed this morning to evaluate patient's response. Order placed to increase HOB 10-15 degrees every 2 hours as toleratedby the patient. Please notify neurosurgery promptly if patient would develop headaches with CSF drainage. Once patient has reached HOB 90 degrees, notify neurosurgery for further direction. Continue to send CSF for analysis nightly. Continue prophylactic Rocephin while drain remains in place. Lumbar dressings remain clean, dry, and intact, without palpable fluid collection surrounding. Continue to monitor dressings. If they become saturated, change dressing with new gauze and Tegaderm andnotify neurosurgery. Patient did have intermittent complaint of right sided back pain with CSF drains. Tizanidine ordered, patient provides that this did help. Certainly could be related to nerve irritation from the lumbar drain. Will continue to monitor. Trial Management Associate team following for medical management while in ICU. Appreciate their input. Patient is okay for stepdown status, but to remain in SICU stepdown. Please see Dr. Kapoor's addendum for further details regarding neurosurgical assessment/plan of care. Digitally Signed by STU GAR on 12/29/2023 12:25 PM [id number] Note Date of Service 12/29/23 Patient reviewed and assessed with Dr. Kapoor Neurosurgical CC: Post lumbar laminectomy dural defect and CSF leak s/p postlaminectomy wound exploration with microscopic duraplasty, lumbar drain placement, POD #5 This is a 48-year-old male who is known to neurosurgery service as he recently underwent L4-S1 laminectomy with bilateral foraminotomies by Dr. Kapoor on 12/08/2023. Prior to surgery, he was experiencing low back pain radiating to bilateral hips and down bilateral lower extremities with paresthesias and weakness. Postoperatively, patient reported benefit with surgery and felt that low back pain and leg pain improved significantly. Patient had a routine 2-week postoperative visit in clinic on 12/21/[address] Kap[address]'s [employer] COMMISSIONER. At thisappointment, patient reported positional headaches he had been experiencing since couple days afterhe had been discharged home from the hospital postop. 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 Espinoza (providing coverage for Dr. Kapoor, who was out of town). Dr. Espinoza noted evidenceof a peripherally enhancing fluid collection at the surgical site. According to report, this measured approximately 3.8 x 3.5 x 5.5 cm and appeared consistent with a CSF leak. Per Dr. Espinoza's direction, MRI lumbar spine ordered and completed. Patient then directly admitted to the hospital and kept on strict bedrest. MRI lumbar spine completed 12/22/23 demonstrated a 6.6 cm peripheral enhancing fluid collection at the operative site causing mass effect upon the thecal sac and resulting moderate canal stenosis at L3-L4 and L4-L5. Also 10.5 cm multiloculated fluid collection in the subcutaneous fat. 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 Imaging was reviewed thoroughly by Dr. Espinoza. Due to these findings, Dr. Espinoza recommended surgical intervention with the patient and his wifeto explore the lumbar wound and repair CSF leak if encountered. Patient elected to proceed. Patient underwent a lumbar wound exploration with microscopic duraplasty and lumbar drain placementwith Dr. Espinoza on 12/24/2023. He was taken to the SICU postoperatively. He remained flat in bed for 72 hours post-op, draining 10-15 ml of CSF per hour without developing headaches. Drain was then clamped on 12/28/23. HOB slowly raised to 45 degrees. Patient denied any headaches with HOB elevation. CT myelogram completed afternoon of 12/28/[address] Kapoor and notedto demonstrate extensive contrast material within the laminectomy bed consistent with continued CSFleak. Because of this, patient's HOB returned flat, and order placed to continue CSF drainage (10 ml/hr). This morning, patient is POD #5. He has tolerated drainage of CSF overnight without headaches, nausea, or vomiting. Last drain this morning was at 7 AM. Lumbar drain output overnight was 105mL/8 hourshift. Patient provides that he is doing well this morning. Does note overnight, with hourly drainsfrom lumbar drain, he did experience some right-sided back pain. It was explained to the patient that this could be due to nerve root irritation given placement of lumbar drain. Patient does provide this pain has improved with route returner dose of tizanidine. Denies any new/acute radicular pain tohis legs. Denies any new/acute paresthesias or weakness. On exam, he is alert and oriented x 4, his speech is clear and fluent, MYERS spontaneously, strong bilateral lower extremity motor strength, sensation intact to light touch throughout Objective Vitals and Measurements T: 36.8 C (Oral) TMIN: 36.4 C (Oral) TMAX: 37.4 C (Oral) HR: 61 (Monitored) RR: 12 BP: 116/53 SpO2:98% Intake and Output 7AM Yesterday to 7AM Today Intake and Output (Last 24 hours) Intake Oral Intake 1520.00 Administration Information 2358.00 Output Surgical Drain, Tube Output: 240.00 Urine Voided 1975.00 Stool Count 0.00 Total Summary Total Intake 3878.00 Total Output 2215.00 Fluid Balance 1663.00 Physical Exam See HPI. In addition, respirations are easy and unlabored, lungs are clear throughout. Saturating well on room air. Regular heart rate and rhythm, S1-S2. Abdomen is soft, nondistended. BSP x 4. Passing flatus. Last BM 12/28/2023. He is voiding without difficulty. Lumbar drain site dressing remains dry and intact. No drainage or edema surrounding. In addition, surgical site remains covered with silver alginate dressing which also remains clean, dry, and intact. Weight Dosing Weight: 113.6 kg (12/22/23) Medications Medications (26) Active Scheduled: (10) albuterol - ipratropium 2.5 mg-0.5 mg/3 mL Inhal Sherrie UD 3 mL, Inhalation, TIDRT atorvastatin 40 mg tablet 40 mg 1 tab(s), Oral, qDay cefTRIAXone IVP syringe 1 gram(s) 10 mL, IV Push (INT), q12h docusate-senna (Senokot S) 50 mg-8.6 mg Tablet 1 tab(s), Oral, BID gabapentin 300 mg Capsule 300 mg 1 cap(s), Oral, TID insulin lispro 100 units/mL Soln (3 mL) Give 0-5 units/dose, Subcutaneous, TIDAC metformin 500 mg Tablet 500 mg 1 tab(s), Oral, qDay omeprazole [address] capsule 40 mg 1 cap(s), Oral, qDay polyethylene glycol 3350 - UD packet 17 gram(s) 15 mL, Oral, qDay traZODONE 100 mg Tablet 200 mg 2 tab(s), Oral, qHS Continuous: (1) NS (0.9% nacl) 1,000 mL 1,000 mL, Intravenous, 50 mL/hr PRN: (15) acetaminophen 325 mg Tablet 650 mg 2 tab(s), Oral, q4h acetaminophen-OXYcodone 325 mg-5 mg Tablet 2 tab(s), Oral, q4h acetaminophen-OXYcodone 325 mg-5 mg Tablet 1 tab(s), Oral, q4h Al hydrox/Mg hydrox/simethicone 200-200-20 mg/5 mL Susp UD 30 mL, Oral, q2h Al hydrox/Mg hydrox/simethicone 200-200-20 mg/5 mL Susp UD 30 mL, Oral, q2h albuterol - ipratropium 2.5 mg-0.5 mg/3 mL Inhal Sherrie UD 3 mL, Inhalation, q2hRT albuterol 0.083% Soln UD (2.5mg/3 mL) 2.5 mg 3 mL, Inhalation, QIDRT benzocaine-menthol (Cepacol Sore Throat) 15 mg-3.6mg lozenge 1 lozenge(s), Oral, q2h dextrose 50% Solution Disp syringe 50 mL 12.5 gram(s) 25 mL, IV Push, AsDirected docusate sodium 100 mg Capsule 100 mg 1 cap(s), Oral, BID docusate sodium 100 mg Capsule 100 mg 1 cap(s), Oral, BID hydralazine 20 mg/mL (1mL) vial 10 mg 0.5 mL, IV Push, q15min magnesium hydroxide 8% Suspension 30 mL UD 30 mL, Oral, qHS ondansetron 2 mg/ 1 mL 2 mL INJ 4 mg 2 mL, IV Push, q4h tiZANidine 4 mg tablet 4 mg 1 tab(s), Oral, TID Lab Results 12/28 04:44 WBC: 7.6 Hgb: 12.0 L Hct: 34.7 L Platelet: 243 Neutrophil %: 61.5 12/27 05:05 WBC: 10.6 Hgb: 13.3 Hct: 38.6 L Platelet: 271 Neutrophil %: 80.0 H Glucose Level: 127 H Sodium Level: 137 Potassium Level: 4.3 BUN: 8.0 Creatinine Lvl (s): 0.68 Imaging Results [address] CT Spine Lumbar w/ Contrast Result Date: December 28, 2023 Verified By: KRISTEN BOWDEN MD CLINICAL STATEMENT: IMPRESSION: Extensive contrast material in the laminectomy bed, some combination of CSFand or drainleak. Mild stenosis in the lower lumbar spine, some combination of surgical changesand extruded stenosis increased since the MR of 21 December. The cauda appears grossly unremarkable through the lower G0kmfoc, and is notdiscretely visualized below this level, due mainly to stenosis. Assessment/Plan Post lumbar laminectomy with dural defect and CSF leak s/p postlaminectomy wound exploration with microscopic duraplasty, lumbar drain placement, POD #5 Postoperatively, patient remained with HOB flat for 72 hours, draining 10-15 mL of CSF per hour. Hetolerated this well. Drain was then clamped on 12/28/2023 and head of bed was slowly raised to 45 degrees. Patient denied any headaches with head of bed elevation. CT myelogram completed afternoon of 12/28/2023 which demonstrated extensive contrast material within the laminectomy bed consistent with continued CSF leak. Because of this, patient's head of bed returned flat and order was placed to continue CSF drainage of 10 mL/hr. Patient tolerated CSF drainage overnight. Last drain at 7 AM this morning. Per Dr. Kapoor, will clamp lumbar drain today. He plans to slowly increase head of bed this morning to evaluate patient's response. Order placed to increase HOB 10-15 degrees every 2 hours as toleratedby the patient. Please notify neurosurgery promptly if patient would develop headaches with CSF drainage. Once patient has reached HOB 90 degrees, notify neurosurgery for further direction. Continue to send CSF for analysis nightly. Continue prophylactic Rocephin while drain remains in place. Lumbar dressings remain clean, dry, and intact, without palpable fluid collection surrounding. Continue to monitor dressings. If they become saturated, change dressing with new gauze and Tegaderm andnotify neurosurgery. Patient did have intermittent complaint of right sided back pain with CSF drains. Tizanidine ordered, patient provides that this did help. Certainly could be related to nerve irritation from the lumbar drain. Will continue to monitor. Trial Management Associate team following for medical management while in ICU. Appreciate their input. Patient is okay for stepdown status, but to remain in SICU stepdown. Please see Dr. Kapoor's addendum for further details regarding neurosurgical assessment/plan of care. Digitally Signed by STU GAR on 12/29/2023 12:25 PM [id number] Progress note Date of Service 12/28/2023 Split/Shared visit Dr. Kapoor Subjective Patient is a 48-year-old male who recently underwent a L4-S1 laminectomy with bilateral foraminotomies with Dr. Kapoor on 12/08/2023. Prior to surgery the patient had low back pain radiating down his bilateral lower extremities with paresthesias and weakness. Patient did follow-up in the neurosurgery office on 12/21/2023 for his 2-week postoperative visit. Patient had noted improvement in his low back pain and leg pain postoperatively. He also noted complete resolution of his leg paresthesias postoperatively. However the patient did endorse positional headaches postoperatively. He had described his headaches as a sharp and pressure sensation. Patient had noted headaches with sitting and standing and resolution of his headaches with laying flat. It was noted that he did have a partial dural tear intraoperatively without evidence of a CSF leak intraoperatively. Due to this and his postoperative headaches, a CT lumbar spine with contrast was ordered to further evaluate for a CSF leak postoperatively. A CT lumbar spine with contrast was performed on 12/22/2023. It had demonstrated a peripherally enhancing fluid collection at the surgical site measuring approximately 3.8 cm x 3.5 cm x 5.5 cm consistent with a CSF leak. This was discussed with the on-call neurosurgeon, Dr. Espinoza. Dr. Espinoza had recommended direct admission to [facility] and a STAT MRI lumbar spine with and without contrast to further evaluate the CSF leak. MRI lumbar spine with and without contrast performed on 12/22/2023 demonstrated a 6.6 cm peripherally enhancing fluid collection at the operative site causing mass effect upon the thecal sac and moderate canal stenosis at L3-L4 and L4-L5. 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 Due to these findings,Dr. Espinoza had discussed surgical intervention with the patient and his to repair the CSF leak. They agreed to proceed. Patient underwent a lumbar wound exploration with microscopic duraplasty and lumbar drain placementwith Dr. Espinoza on 12/24/2023. Patient was taken to the SICU postoperatively. Trial Management Associate team wasconsulted to assist with medical management while in SICU. Dr. Espinoza recommended strict bed restand laying flat for 72 hours postoperatively. Lumbar drain output overnight was 160mL/8 hour shift. Patient was seen and examined at bedside this morning. Patient has been doing well since surgery on12/24/2023. Patient has been tolerating CSF drainage without any headaches, nausea, and vomiting. Patient notes some incision site discomfort but feels this is controlled with pain medications. Patient denies any leg pain, paresthesias, weakness, saddle anesthesia, or loss of bowel or bladder function. Patient is awake, alert, and oriented x4. Patient follows commands appropriately. His speech is clear and fluent. Patient moves all 4 extremities without difficulty. Normal strength and sensation throughout. Objective Vitals and Measurements T: 36.4 C (Oral) TMIN: 36.4 C (Oral) TMAX: 37.8 C (Oral) HR: 83 (Monitored) RR: 15 BP: 110/74 SpO2:94% Intake and Output 7AM Yesterday to 7AM Today Intake and Output (Last 24 hours) Intake Administration Information 1213.00 Oral Intake 670.00 Output Surgical Drain, Tube Output: 280.00 Urine Voided 2024. Urinary Catheter Output: 1525.00 Stool Count 6.00 Total Summary Total Intake 1883.00 Total Output 3830.00 Fluid Balance -1947.00 Physical Exam Weight Dosing Weight: 113.6 kg (12/22/23) Medications Medications (24) Active Scheduled: (9) albuterol - ipratropium 2.5 mg-0.5 mg/3 mL Inhal Sherrie UD 3 mL, Inhalation, TIDRT atorvastatin 40 mg tablet 40 mg 1 tab(s), Oral, qDay cefTRIAXone IVP syringe 1 gram(s) 10 mL, IV Push (INT), q12h docusate-senna (Senokot S) 50 mg-8.6 mg Tablet 1 tab(s), Oral, BID gabapentin 300 mg Capsule 300 mg 1 cap(s), Oral, TID metformin 500 mg Tablet 500 mg 1 tab(s), Oral, qDay omeprazole [address] capsule 40 mg 1 cap(s), Oral, qDay polyethylene glycol 3350 - UD packet 17 gram(s) 15 mL, Oral, qDay traZODONE 100 mg Tablet 200 mg 2 tab(s), Oral, qHS Continuous: (1) NS (0.9% nacl) 1,000 mL 1,000 mL, Intravenous, 50 mL/hr PRN: (14) acetaminophen 325 mg Tablet 650 mg 2 tab(s), Oral, q4h acetaminophen-OXYcodone 325 mg-5 mg Tablet 2 tab(s), Oral, q4h acetaminophen-OXYcodone 325 mg-5 mg Tablet 1 tab(s), Oral, q4h Al hydrox/Mg hydrox/simethicone 200-200-20 mg/5 mL Susp UD 30 mL, Oral, q2h Al hydrox/Mg hydrox/simethicone 200-200-20 mg/5 mL Susp UD 30 mL, Oral, q2h albuterol - ipratropium 2.5 mg-0.5 mg/3 mL Inhal Sherrie UD 3 mL, Inhalation, q2hRT albuterol 0.083% Soln UD (2.5mg/3 mL) 2.5 mg 3 mL, Inhalation, QIDRT benzocaine-menthol (Cepacol Sore Throat) 15 mg-3.6mg lozenge 1 lozenge(s), Oral, q2h dextrose 50% Solution Disp syringe 50 mL 12.5 gram(s) 25 mL, IV Push, AsDirected docusate sodium 100 mg Capsule 100 mg 1 cap(s), Oral, BID docusate sodium 100 mg Capsule 100 mg 1 cap(s), Oral, BID hydralazine 20 mg/mL (1mL) vial 10 mg 0.5 mL, IV Push, q15min magnesium hydroxide 8% Suspension 30 mL UD 30 mL, Oral, qHS ondansetron 2 mg/ 1 mL 2 mL INJ 4 mg 2 mL, IV Push, q4h Lab Results 12/27 05:05 WBC: 10.6 Hgb: 13.3 Hct: 38.6 L Platelet: 271 Neutrophil %: 80.0 H Glucose Level: 127 H Sodium Level: 137 Potassium Level: 4.3 BUN: 8.0 Creatinine Lvl (s): 0.68 12/26 05:03 WBC: 9.3 Hgb: 11.7 L Hct: 34.2 L Platelet: 273 Neutrophil %: 61.2 Glucose Level: 100 Sodium Level: 140 Potassium Level: 3.8 BUN: 9.0 Creatinine Lvl (s): 0.92 Imaging Results and [address] CT Spine Lumbar w/ Contrast Result Date: December 28, 2023 Verified By: KRISTEN BOWDEN MD CLINICAL STATEMENT: IMPRESSION: Extensive contrast material in the laminectomy bed, some combination of CSFand or drainleak. Mild stenosis in the lower lumbar spine, some combination of surgical changesand extruded stenosis increased since the MR of 21 December. The cauda appears grossly unremarkable through the lower [id number], and is notdiscretely visualized below this level, due mainly to stenosis. XR Fluoro < 1Hr Tech Time Result Date: December 24, 2023 Verified By: KARIE CURRAN MD CLINICAL STATEMENT: IMPRESSION: Intraprocedural fluoroscopic spot images as above. See separate procedurereport for more information. Assessment/Plan Post lumbar laminectomy with dural defect and CSF leak s/p postlaminectomy wound exploration with microscopic duraplasty, lumbar drain placement, POD#4 -Patient previously underwent a L4-S1 laminectomy with bilateral foraminotomies with Dr. Kapoor on 12/08/2023. Patient did follow-up in the neurosurgery office on 12/21/2023 for his 2-week postoperative visit. Patient had noted improvement in his low back pain and leg pain postoperatively. He also noted complete resolution of his leg paresthesias postoperatively. However, the patient did endorse positional headaches that started 2-3 days after his previous hospitalization. -MRI lumbar spine with and without contrast performed on 12/22/2023 demonstrated a 6.6 cm peripherally enhancing fluid collection at the operative site causing mass effect upon the thecal sac and moderate canal stenosis at L3-L4 and L4-L5. 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 Due to these findings, Dr. Espinoza had discussed surgical intervention with the patient and his to repair the CSF leak. They agreed to proceed. -Patient underwent a lumbar wound exploration with microscopic duraplasty and lumbar drain placement with Dr. Espinoza on 12/24/2023. Patient was taken to the SICU postoperatively. Trial Management Associate team was consulted to assist with medical management while in SICU. Dr. Espinoza recommended strict bed rest and laying flat for 72 hours postoperatively. -Overnight, the patient tolerated CSF drainage overnight without symptoms. He has been tolerating drainage since surgery. He denies any headaches since surgery. -This morning, we had clamped the lumbar drain. We had slowed raised the HOB 10 degrees every hour.Patient tolerated this well without headaches. -Dr. Kapoor had requested a CT Myelogram by IR to ensure he did not have active CSF extravasation. The plan was the patient could potentially have the lumbar drain removed if there was no CSF noted. -CT Myelogram was performed this afternoon with IR. It has been reviewed by Dr. Kapoor. It does demonstrate extensive contrast material within the laminectomy bed consistent with continued CSF leak. -Due to the findings on the CT Myelogram, patient will be remain on strict bed rest/laying flat. Wewill drain 10cc/hour. Patient will likely require 2-3 days of this to see if the CSF leak resolves.We will continue to monitor for any headaches with CSF drainage. -Continue Rocephin while drain remains in place. -Continue to send CSF samples QHS -Continue to monitor lumbar drain dressing. It should remain clean, dry, and intact at all times. If dressing becomes saturated, please change dressing to gauze dressing with Tegaderm and notify neurosurgery. -Continue current pain regimen for acute postoperative pain. Continue to monitor for hypotension. Please see 's addendum for additional recommendations. Digitally Signed by ORIN BRADFORD on 12/28/2023 04:56 PM [id number] Note Date of Service 12/29/23 Subjective This is ICU day #6 for Reji, a 48-year-old male with a past medical history significantfor smoker approximately 1 pack/day for 34 years, GERD, COPD, exf-jhzocio-hvvvkmapk diabetes type 2, dyslipidemia, hypertension, irritable bowel syndrome, reported rheumatoid arthritis though he seessays he is not on any medications and is referred to rheumatology for [place], lumbar radiculopathy,spinal stenosis, who underwent L4-S1 laminectomy with bilateral foraminotomies on 12-08-2023 secondary to paresthesias weakness and pain in his bilateral hips and lower extremities. His EBL was 30 cc and his course was complicated with a partial dural tear however intraoperatively there was 0 evidence of a CSF leak. He was kept 1 additional night in the hospital to monitor for CSF leak and was subsequently discharged to home. On his 2-week follow-up he complained of headaches worse while sitting/standing. He was referred to get a CT of the lumbar spine. That showed an enhancing fluid collection 3.8 x 3.5 x 5.5 consistent with a CSF leak. He then was directly admitted to the hospital under neurosurgical service and underwent an MRI which showed a 6.6 fluid collection and mass effect on the thecal sac resulting in moderate canal stenosis at L3-L4 and L4-L5. He also had a 10.5 cm multiloculated fluid collection in the subcutaneous fat. He is now postoperative status post wound explorationwith duraplasty, and lumbar drain placement and estimated blood loss of 50 cc. He was brought postoperatively to the surgical intensive care unit extubated and hemodynamically stable. In the past 24 hours: Drain clamped, myelogram performed showed (+) leak Objective Vitals and Measurements T: 36.8 C (Oral) TMIN: 36.4 C (Oral) TMAX: 37.4 C (Oral) HR: 61 (Monitored) RR: 12 BP: 116/53 SpO2:98% Intake and Output 7AM Yesterday to 7AM Today Intake and Output (Last 24 hours) Intake Oral Intake 1430.00 Administration Information 2358.00 Output Surgical Drain, Tube Output: 240.00 Urine Voided 2275.00 Stool Count 0.00 Total Summary Total Intake 3788.00 Total Output 2515.00 Fluid Balance 1273.00 Physical Exam General-no acute distress, alert HEENT-normocephalic, atraumatic Pulmonary-clear bilaterally, no wheeze Cardiovascular-regular, no appreciable murmurs, gallops or rubs Abdomen-soft, nontender, bowel sounds positive Extremities-no cyanosis, clubbing or edema, he has a lumbar drain in place Neurologic-nonfocal Weight Dosing Weight: 113.6 kg (12/22/23) Medications Medications (26) Active Scheduled: (10) albuterol - ipratropium 2.5 mg-0.5 mg/3 mL Inhal Sherrie UD 3 mL, Inhalation, TIDRT atorvastatin 40 mg tablet 40 mg 1 tab(s), Oral, qDay cefTRIAXone IVP syringe 1 gram(s) 10 mL, IV Push (INT), q12h docusate-senna (Senokot S) 50 mg-8.6 mg Tablet 1 tab(s), Oral, BID gabapentin 300 mg Capsule 300 mg 1 cap(s), Oral, TID insulin lispro 100 units/mL Soln (3 mL) Give 0-5 units/dose, Subcutaneous, TIDAC metformin 500 mg Tablet 500 mg 1 tab(s), Oral, qDay omeprazole [address] capsule 40 mg 1 cap(s), Oral, qDay polyethylene glycol 3350 - UD packet 17 gram(s) 15 mL, Oral, qDay traZODONE 100 mg Tablet 200 mg 2 tab(s), Oral, qHS Continuous: (1) NS (0.9% nacl) 1,000 mL 1,000 mL, Intravenous, 50 mL/hr PRN: (15) acetaminophen 325 mg Tablet 650 mg 2 tab(s), Oral, q4h acetaminophen-OXYcodone 325 mg-5 mg Tablet 2 tab(s), Oral, q4h acetaminophen-OXYcodone 325 mg-5 mg Tablet 1 tab(s), Oral, q4h Al hydrox/Mg hydrox/simethicone 200-200-20 mg/5 mL Susp UD 30 mL, Oral, q2h Al hydrox/Mg hydrox/simethicone 200-200-20 mg/5 mL Susp UD 30 mL, Oral, q2h albuterol - ipratropium 2.5 mg-0.5 mg/3 mL Inhal Sherrie UD 3 mL, Inhalation, q2hRT albuterol 0.083% Soln UD (2.5mg/3 mL) 2.5 mg 3 mL, Inhalation, QIDRT benzocaine-menthol (Cepacol Sore Throat) 15 mg-3.6mg lozenge 1 lozenge(s), Oral, q2h dextrose 50% Solution Disp syringe 50 mL 12.5 gram(s) 25 mL, IV Push, AsDirected docusate sodium 100 mg Capsule 100 mg 1 cap(s), Oral, BID docusate sodium 100 mg Capsule 100 mg 1 cap(s), Oral, BID hydralazine 20 mg/mL (1mL) vial 10 mg 0.5 mL, IV Push, q15min magnesium hydroxide 8% Suspension 30 mL UD 30 mL, Oral, qHS ondansetron 2 mg/ 1 mL 2 mL INJ 4 mg 2 mL, IV Push, q4h tiZANidine 4 mg tablet 4 mg 1 tab(s), Oral, TID Lab Results 12/28 04:44 WBC: 7.6 Hgb: 12.0 L Hct: 34.7 L Platelet: 243 Neutrophil %: 61.5 12/27 05:05 WBC: 10.6 Hgb: 13.3 Hct: 38.6 L Platelet: 271 Neutrophil %: 80.0 H Glucose Level: 127 H Sodium Level: 137 Potassium Level: 4.3 BUN: 8.0 Creatinine Lvl (s): 0.68 EKG No qualifying data available. Assessment/Plan 1. Lumbar radiculopathy, spinal stenosis status post L4-S1 laminectomy with bilateral femoral foraminotomies on complicated by a dural leak. Now postoperative status post wound exploration with duraplasty and lumbar drain placement. 2. History of lde-mahiasl-zkfhlwdxh diabetes mellitus type 2, hypertension, hyperlipidemia, irritable bowel syndrome, rheumatoid arthritis, 3. DVT and GI prophylaxis Plan: 1. Gradually increasing incline 10- 15 degrees every 2 hours and monitoring for symptoms of headache. 2. Initiate adult endocrine regimen for glycemic control., Continue home gabapentin, metformin, trazodone omeprazole. 3. Rocephin 1 g every 12 hours has been ordered by neurosurgery while drain is in place 4. SCDs for DVT prophylaxis until cleared for chemical DVT prophylaxis by neurosurgery, home omeprazole for GI prophylaxis 5. DuoNeb 3 times daily 6. CPAP at night as tolerated. 7. Continue zanaflex and percocet Patient to be monitored in surgical ICU with drains in place. Digitally Signed by PASCUAL MOORE MD on 12/29/2023 08:37 AM [facility] [id number] Note. MICRO - Microbiology PROCEDURE: Culture Cerebrospinal Fluid with Gram Stain [O1 *1] SOURCE: Cerebrospinal Fluid BODY SITE: COLLECTED DATE/TIME: 12/26/2023 23:43 EDT RECEIVED DATE/TIME: 12/26/2023 23:57 EDT START DATE/TIME: 12/26/2023 23:57 EDT FREE TEXT SOURCE: FINAL REPORTS Final Report [] Verified Date/Time/Personnel: 12/29/2023 08:16 EDT No growth at 48 hours. PRELIMINARY REPORTS Preliminary Report [] Verified Date/Time/Personnel: 12/27/2023 10:56 EDT No growth to date STAINS GS [] Verified Date/Time/Personnel: 12/27/2023 00:29 EDT Sedimented 1+ White Blood Cells 1+ Red Blood Cells No organisms seen. Order Comments O1: Culture Cerebrospinal Fluid with Gram Stain (CSF Culture with Gram Stain) specimen received unlabeled Performing Locations *1: This test was performed at: [address], [facility] , [facility] ([place])12-28-2023 Neurological surgery Progress note Date of Service 12/28/2023 Split/Shared visit Dr. Kapoor Subjective Patient is a 48-year-old male who recently underwent a L4-S1 laminectomy with bilateral foraminotomies with Dr. Kapoor on 12/08/2023. Prior to surgery the patient had low back pain radiating down his bilateral lower extremities with paresthesias and weakness. Patient did follow-up in the neurosurgery office on 12/21/2023 for his 2-week postoperative visit. Patient had noted improvement in his low back pain and leg pain postoperatively. He also noted complete resolution of his leg paresthesias postoperatively. However the patient did endorse positional headaches postoperatively. He had described his headaches as a sharp and pressure sensation. Patient had noted headaches with sitting and standing and resolution of his headaches with laying flat. It was noted that he did have a partial dural tear intraoperatively without evidence of a CSF leak intraoperatively. Due to this and his postoperative headaches, a CT lumbar spine with contrast was ordered to further evaluate for a CSF leak postoperatively. A CT lumbar spine with contrast was performed on 12/22/2023. It had demonstrated a peripherally enhancing fluid collection at the surgical site measuring approximately 3.8 cm x 3.5 cm x 5.5 cm consistent with a CSF leak. This was discussed with the on-call neurosurgeon, Dr. Espinoza. Dr. Espinoza had recommended direct admission to [facility] and a STAT MRI lumbar spine with and without contrast to further evaluate the CSF leak. MRI lumbar spine with and without contrast performed on 12/22/2023 demonstrated a 6.6 cm peripherally enhancing fluid collection at the operative site causing mass effect upon the thecal sac and moderate canal stenosis at L3-L4 and L4-L5. 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 Due to these findings,Dr. Espinoza had discussed surgical intervention with the patient and his to repair the CSF leak. They agreed to proceed. Patient underwent a lumbar wound exploration with microscopic duraplasty and lumbar drain placementwith Dr. Espinoza on 12/24/2023. Patient was taken to the SICU postoperatively. Trial Management Associate team wasconsulted to assist with medical management while in SICU. Dr. Espinoza recommended strict bed restand laying flat for 72 hours postoperatively. Lumbar drain output overnight was 160mL/8 hour shift. Patient was seen and examined at bedside this morning. Patient has been doing well since surgery on12/24/2023. Patient has been tolerating CSF drainage without any headaches, nausea, and vomiting. Patient notes some incision site discomfort but feels this is controlled with pain medications. Patient denies any leg pain, paresthesias, weakness, saddle anesthesia, or loss of bowel or bladder function. Patient is awake, alert, and oriented x4. Patient follows commands appropriately. His speech is clear and fluent. Patient moves all 4 extremities without difficulty. Normal strength and sensation throughout. Objective Vitals and Measurements T: 36.4 C (Oral) TMIN: 36.4 C (Oral) TMAX: 37.8 C (Oral) HR: 83 (Monitored) RR: 15 BP: 110/74 SpO2:94% Intake and Output 7AM Yesterday to 7AM Today Intake and Output (Last 24 hours) Intake Administration Information 1213.00 Oral Intake 670.00 Output Surgical Drain, Tube Output: 280.00 Urine Voided 2024.00 Urinary Catheter Output: 1525.00 Stool Count 6.00 Total Summary Total Intake 1883.00 Total Output 3830.00 Fluid Balance -1947.00 Physical Exam Weight Dosing Weight: 113.6 kg (12/22/23) Medications Medications (24) Active Scheduled: (9) albuterol - ipratropium 2.5 mg-0.5 mg/3 mL Inhal Sherrie UD 3 mL, Inhalation, TIDRT atorvastatin 40 mg tablet 40 mg 1 tab(s), Oral, qDay cefTRIAXone IVP syringe 1 gram(s) 10 mL, IV Push (INT), q12h docusate-senna (Senokot S) 50 mg-8.6 mg Tablet 1 tab(s), Oral, BID gabapentin 300 mg Capsule 300 mg 1 cap(s), Oral, TID metformin 500 mg Tablet 500 mg 1 tab(s), Oral, qDay omeprazole [address] capsule 40 mg 1 cap(s), Oral, qDay polyethylene glycol 3350 - UD packet 17 gram(s) 15 mL, Oral, qDay traZODONE 100 mg Tablet 200 mg 2 tab(s), Oral, qHS Continuous: (1) NS (0.9% nacl) 1,000 mL 1,000 mL, Intravenous, 50 mL/hr PRN: (14) acetaminophen 325 mg Tablet 650 mg 2 tab(s), Oral, q4h acetaminophen-OXYcodone 325 mg-5 mg Tablet 2 tab(s), Oral, q4h acetaminophen-OXYcodone 325 mg-5 mg Tablet 1 tab(s), Oral, q4h Al hydrox/Mg hydrox/simethicone 200-200-20 mg/5 mL Susp UD 30 mL, Oral, q2h Al hydrox/Mg hydrox/simethicone 200-200-20 mg/5 mL Susp UD 30 mL, Oral, q2h albuterol - ipratropium 2.5 mg-0.5 mg/3 mL Inhal Sherrie UD 3 mL, Inhalation, q2hRT albuterol 0.083% Soln UD (2.5mg/3 mL) 2.5 mg 3 mL, Inhalation, QIDRT benzocaine-menthol (Cepacol Sore Throat) 15 mg-3.6mg lozenge 1 lozenge(s), Oral, q2h dextrose 50% Solution Disp syringe 50 mL 12.5 gram(s) 25 mL, IV Push, AsDirected docusate sodium 100 mg Capsule 100 mg 1 cap(s), Oral, BID docusate sodium 100 mg Capsule 100 mg 1 cap(s), Oral, BID hydralazine 20 mg/mL (1mL) vial 10 mg 0.5 mL, IV Push, q15min magnesium hydroxide 8% Suspension 30 mL UD 30 mL, Oral, qHS ondansetron 2 mg/ 1 mL 2 mL INJ 4 mg 2 mL, IV Push, q4h Lab Results 12/27 05:05 WBC: 10.6 Hgb: 13.3 Hct: 38.6 L Platelet: 271 Neutrophil %: 80.0 H Glucose Level: 127 H Sodium Level: 137 Potassium Level: 4.3 BUN: 8.0 Creatinine Lvl (s): 0.68 12/26 05:03 WBC: 9.3 Hgb: 11.7 L Hct: 34.2 L Platelet: 273 Neutrophil %: 61.2 Glucose Level: 100 Sodium Level: 140 Potassium Level: 3.8 BUN: 9.0 Creatinine Lvl (s): 0.92 Imaging Results and Diagnostics CT Spine Lumbar w/ Contrast Result Date: December 28, 2023 Verified By: KRISTEN BOWDEN MD CLINICAL STATEMENT: IMPRESSION: Extensive contrast material in the laminectomy bed, some combination of CSFand or drainleak. Mild stenosis in the lower lumbar spine, some combination of surgical changesand extruded stenosis increased since the MR of 21 December. The cauda appears grossly unremarkable through the lower O0eicjf, and is notdiscretely visualized below this level, due mainly to stenosis. XR Fluoro < 1Hr Tech Time Result Date: December 24, 2023 Verified By: KARIE CURRAN MD CLINICAL STATEMENT: IMPRESSION: Intraprocedural fluoroscopic spot images as above. See separate procedurereport for more information. Assessment/Plan Post lumbar laminectomy with dural defect and CSF leak s/p postlaminectomy wound exploration with microscopic duraplasty, lumbar drain placement, POD#4 -Patient previously underwent a L4-S1 laminectomy with bilateral foraminotomies with Dr. Kapoor on 12/08/2023. Patient did follow-up in the neurosurgery office on 12/21/2023 for his 2-week postoperative visit. Patient had noted improvement in his low back pain and leg pain postoperatively. He also noted complete resolution of his leg paresthesias postoperatively. However, the patient did endorse positional headaches that started 2-3 days after his previous hospitalization. -MRI lumbar spine with and without contrast performed on 12/22/2023 demonstrated a 6.6 cm peripherally enhancing fluid collection at the operative site causing mass effect upon the thecal sac and moderate canal stenosis at L3-L4 and L4-L5. 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 Due to these findings, Dr. Espinoza had discussed surgical intervention with the patient and his to repair the CSF leak. They agreed to proceed. -Patient underwent a lumbar wound exploration with microscopic duraplasty and lumbar drain placement with Dr. Espinoza on 12/24/2023. Patient was taken to the SICU postoperatively. Trial Management Associate team was consulted to assist with medical management while in SICU. Dr. Espinoza recommended strict bed rest and laying flat for 72 hours postoperatively. -Overnight, the patient tolerated CSF drainage overnight without symptoms. He has been tolerating drainage since surgery. He denies any headaches since surgery. -This morning, we had clamped the lumbar drain. We had slowed raised the HOB 10 degrees every hour.Patient tolerated this well without headaches. -Dr. Kapoor had requested a CT Myelogram by IR to ensure he did not have active CSF extravasation. The plan was the patient could potentially have the lumbar drain removed if there was no CSF noted. -CT Myelogram was performed this afternoon with IR. It has been reviewed by Dr. Kapoor. It does demonstrate extensive contrast material within the laminectomy bed consistent with continued CSF leak. -Due to the findings on the CT Myelogram, patient will be remain on strict bed rest/laying flat. Wewill drain 10cc/hour. Patient will likely require 2-3 days of this to see if the CSF leak resolves.We will continue to monitor for any headaches with CSF drainage. -Continue Rocephin while drain remains in place. -Continue to send CSF samples QHS -Continue to monitor lumbar drain dressing. It should remain clean, dry, and intact at all times. If dressing becomes saturated, please change dressing to gauze dressing with Tegaderm and notify neurosurgery. -Continue current pain regimen for acute postoperative pain. Continue to monitor for hypotension. Please see 's addendum for additional recommendations. Digitally Signed by ORIN [address] COMMISSIONER-ORACLE 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 DEVELOPER on 12/28/2023 04:56 PM [id number] Note ORIGINAL PROCEDURE: Fluoroscopically guided lumbar myelogram Principal Accounts Clerk: Noni Morrow PA-C CLINICAL INFORMATION: CSF leak from lumbar laminectomy, patient has lumbar drain, want to assess for persistent leak FLUORO: 54 seconds AIR KERMA DOSE: 60.3 mGy NEEDLE: None PUNCTURE LEVEL: None CONTRAST: 10 mL Omni 180 The risks, benefits, and alternatives of the procedure were carefully explained to the patient who wished to proceed. Informed written consent was obtained prior to beginning the study. The patient's medications were reviewed, including dosage and route of administration. Appropriate medications were held pre-myelogram, if indicated. The patient was placed prone on the fluoroscopy table. The lumbar drain connection was prepped and draped in the usual, sterile fashion. Under direct fluoroscopic visualization, contrast was injected into the thecal sac via the existing lumbar drain. PLAIN FILM MYELOGRAM: Intrathecal contrast is present. Extravasation of contrast into the posterior soft tissues consistent with CSF leak. COMPLICATIONS: None EBL: Minimal PATIENT CONDITION: Stable, unchanged. IMPRESSION: 1. Successful lumbar myelography via existing lumbar drain. 2. Please see the separately dictated CT Myelogram for details. Procedure was performed by Noni Morrow PA-C Interpreted by: Kristen White MD Preliminary Report By: Noni Morrow PA-C Electronically signed By Kristen White MD Dictated Date: 12/28/2023 4:44:35 PM Prelim Date: 12/30/2023 3:34:41 PM Sign Date: 01/01/2024 9:45:50 AM Ordering Provider: [facility]07-01-2024 Note ORIGINAL HISTORY: CSF leak, laminectomy COMPARISON: CT and MR 22 December 2023. TECHNIQUE: CT myelogram of the lumbar spine following uncomplicated administration of intrathecal contrast, with sagittal and coronal reconstruction. This exam was performed according to our departmental dose optimization program, and includes the following measures where applicable: automated exposure control, adjustment of the mAs and/or kVp according to patient size and/or exam, and an iterative reconstruction algorithm. FINDINGS: There are 5 lumbar type vertebral bodies counting from the last visible rib. There is grade 1 retrolisthesis at L5-S1. There are L4-L5 laminectomies. There is a subarachnoid drain entering the thecal sac at the superior L4 level and extending superiorly. There is diffuse contrast material throughout the surgical bed most prominently around the graft but extending inferiorly to the lower aspect of the laminectomy. There is mass effect on the posterior thecal sac at L4-L5 through L5-S1, some combination of surgical changes and extradural fluid with contrast. The tip of the conus is at the L1 level. The visualized portion of the cord is unremarkable in appearance. Individual nerve roots are visualized through the lower L4 level, but discrete nerve roots are not visualized through L4-L5. Specific findings by level: L3-L4: There is no stenosis; the subarachnoid drain exits at this level. L4-L5: There is mild stenosis due to some combination of surgical change and extruded CSF/contrast material. L5-S1: There is at least mild stenosis; there is only minimal contrast flow to this level. IMPRESSION: Extensive contrast material in the laminectomy bed, some combination of CSF and or drain leak. Mild stenosis in the lower lumbar spine, some combination of surgical changes and extruded stenosis increased since the MR of 21 December. The cauda appears grossly unremarkable through the lower L4 level, and is not discretely visualized below this level, due mainly to stenosis. Interpreted by: Kristen Bowden MD Preliminary Report By: Kristen Bowden MD Electronically signed By Kristen Bowden MD Dictated Date: 12/28/2023 3:45:20 PM Prelim Date: 12/28/2023 4:24:02 PM Sign Date: 12/28/2023 4:24:02 PM Ordering Provider: [facility]07-01-2024 Note Date of Service 12/28/23 Subjective This is ICU day #5 for Reji, a 48-year-old male with a past medical history significantfor smoker approximately 1 pack/day for 34 years, GERD, COPD, [id number]-zennvbfon diabetes type 2, dyslipidemia, hypertension, irritable bowel syndrome, reported rheumatoid arthritis though he seessays he is not on any medications and is referred to rheumatology for [place], lumbar radiculopathy,spinal stenosis, who underwent L4-S1 laminectomy with bilateral foraminotomies on 12-08-2023 secondary to paresthesias weakness and pain in his bilateral hips and lower extremities. His EBL was 30 cc and his course was complicated with a partial dural tear however intraoperatively there was 0 evidence of a CSF leak. He was kept 1 additional night in the hospital to monitor for CSF leak and was subsequently discharged to home. On his 2-week follow-up he complained of headaches worse while sitting/standing. He was referred to get a CT of the lumbar spine. That showed an enhancing fluid collection 3.8 x 3.5 x 5.5 consistent with a CSF leak. He then was directly admitted to the hospital under neurosurgical service and underwent an MRI which showed a 6.6 fluid collection and mass effect on thethecal sac resulting in moderate canal stenosis at L3-L4 and L4-L5. He also had a 10.5 cm multiloculated fluid collection in the subcutaneous fat. He is now postoperative status post wound exploration with duraplasty, and lumbar drain placement and estimated blood loss of 50 cc. He was brought postoperatively to the surgical intensive care unit extubated and hemodynamically stable. In the past 24 hours: Has been stable overnight, plan to clamp drain today. Had multiple bowel movements overnight Objective Vitals and Measurements T: 36.8 C (Oral) TMIN: 36.7 C (Oral) TMAX: 37.8 C (Oral) HR: 92 (Monitored) RR: 15 BP: 142/98 SpO2:93% Intake and Output 7AM Yesterday to 7AM Today Intake and Output (Last 24 hours) Intake Administration Information 1213.00 Oral Intake 1360.00 Output Surgical Drain, Tube Output: 385.00 Urine Voided 2950.00 Urinary Catheter Output: 1525.00 Stool Count 8.00 Total Summary Total Intake 2573.00 Total Output 4860.00 Fluid Balance -2287.00 Physical Exam General-no acute distress, alert HEENT-normocephalic, atraumatic Pulmonary-clear bilaterally, no wheeze Cardiovascular-regular, no appreciable murmurs, gallops or rubs Abdomen-soft, nontender, bowel sounds positive Extremities-no cyanosis, clubbing or edema, he has a lumbar drain in place Neurologic-nonfocal Weight Dosing Weight: 113.6 kg (12/22/23) Medications Medications (24) Active Scheduled: (9) albuterol - ipratropium 2.5 mg-0.5 mg/3 mL Inhal Sherrie UD 3 mL, Inhalation, TIDRT atorvastatin 40 mg tablet 40 mg 1 tab(s), Oral, qDay cefTRIAXone IVP syringe 1 gram(s) 10 mL, IV Push (INT), q12h docusate-senna (Senokot S) 50 mg-8.6 mg Tablet 1 tab(s), Oral, BID gabapentin 300 mg Capsule 300 mg 1 cap(s), Oral, TID metformin 500 mg Tablet 500 mg 1 tab(s), Oral, qDay omeprazole [address] capsule 40 mg 1 cap(s), Oral, qDay polyethylene glycol 3350 - UD packet 17 gram(s) 15 mL, Oral, qDay traZODONE 100 mg Tablet 200 mg 2 tab(s), Oral, qHS Continuous: (1) NS (0.9% nacl) 1,000 mL 1,000 mL, Intravenous, 50 mL/hr PRN: (14) acetaminophen 325 mg Tablet 650 mg 2 tab(s), Oral, q4h acetaminophen-OXYcodone 325 mg-5 mg Tablet 2 tab(s), Oral, q4h acetaminophen-OXYcodone 325 mg-5 mg Tablet 1 tab(s), Oral, q4h Al hydrox/Mg hydrox/simethicone 200-200-20 mg/5 mL Susp UD 30 mL, Oral, q2h Al hydrox/Mg hydrox/simethicone 200-200-20 mg/5 mL Susp UD 30 mL, Oral, q2h albuterol - ipratropium 2.5 mg-0.5 mg/3 mL Inhal Sherrie UD 3 mL, Inhalation, q2hRT albuterol 0.083% Soln UD (2.5mg/3 mL) 2.5 mg 3 mL, Inhalation, QIDRT benzocaine-menthol (Cepacol Sore Throat) 15 mg-3.6mg lozenge 1 lozenge(s), Oral, q2h dextrose 50% Solution Disp syringe 50 mL 12.5 gram(s) 25 mL, IV Push, AsDirected docusate sodium 100 mg Capsule 100 mg 1 cap(s), Oral, BID docusate sodium 100 mg Capsule 100 mg 1 cap(s), Oral, BID hydralazine 20 mg/mL (1mL) vial 10 mg 0.5 mL, IV Push, q15min magnesium hydroxide 8% Suspension 30 mL UD 30 mL, Oral, qHS ondansetron 2 mg/ 1 mL 2 mL INJ 4 mg 2 mL, IV Push, q4h Lab Results 12/27 05:05 WBC: 10.6 Hgb: 13.3 Hct: 38.6 L Platelet: 271 Neutrophil %: 80.0 H Glucose Level: 127 H Sodium Level: 137 Potassium Level: 4.3 BUN: 8.0 Creatinine Lvl (s): 0.68 12/26 05:03 WBC: 9.3 Hgb: 11.7 L Hct: 34.2 L Platelet: 273 Neutrophil %: 61.2 Glucose Level: 100 Sodium Level: 140 Potassium Level: 3.8 BUN: 9.0 Creatinine Lvl (s): 0.92 EKG No qualifying data available. Assessment/Plan 1. Lumbar radiculopathy, spinal stenosis status post L4-S1 laminectomy with bilateral femoral foraminotomies on complicated by a dural leak. Now postoperative status post wound exploration with duraplasty and lumbar drain placement. 2. History of raz-whogeaa-tgolspuaj diabetes mellitus type 2, hypertension, hyperlipidemia, irritable bowel syndrome, rheumatoid arthritis, 3. DVT and GI prophylaxis Plan: 1. Continuing flat/reclined position. Currently emptying drain 10-15 cc an hour per neurosurgery. 2. Initiate adult endocrine regimen for glycemic control., Continue home gabapentin, metformin, trazodone omeprazole and HCTZ. 3. Rocephin 1 g every 12 hours has been ordered by neurosurgery while drain is in place 4. SCDs for DVT prophylaxis until cleared for chemical DVT prophylaxis by neurosurgery, home omeprazole for GI prophylaxis 5. DuoNeb 3 times daily 6. CPAP at night as tolerated. Patient to be monitored in surgical ICU with drains in place. Digitally Signed by PASCUAL MOORE MD on 12/28/2023 09:45 AM [facility] [id number] Note. MICRO - Microbiology PROCEDURE: Culture Cerebrospinal Fluid with Gram Stain [*1] SOURCE: Shunt Fluid BODY SITE: COLLECTED DATE/TIME: 12/25/2023 21:44 EDT RECEIVED DATE/TIME: 12/25/2023 22:22 EDT START DATE/TIME: 12/25/2023 22:22 EDT FREE TEXT SOURCE: FINAL REPORTS Final Report [] Verified Date/Time/Personnel: 12/28/2023 08:06 EDT No growth at 48 hours. PRELIMINARY REPORTS Preliminary Report [] Verified Date/Time/Personnel: 12/26/2023 11:16 EDT No growth to date Preliminary Report [] Verified Date/Time/Personnel: 12/26/2023 11:16 EDT No growth at 24 hours. STAINS GS [] Verified Date/Time/Personnel: 12/25/2023 23:36 EDT No organisms seen. Performing Locations *1: This test was performed at: [facility], [address] [place] [address], [facility] , [facility] ([place])12-27-2023 Note Date of Service Chief Complaint 48-year-old male with a past medical history significant for smoker approximately 1 pack/day for 34 years, GERD, COPD, ytx-hszxnlo-cctblrvfa diabetes type 2, dyslipidemia, hypertension, irritable bowel syndrome, reported rheumatoid arthritis though he sees says he is not on any medications and is referred to rheumatology for [place], lumbar radiculopathy, spinal stenosis, who underwent L4-S1 laminectomy with bilateral foraminotomies on 12-08-2023 secondary to paresthesias weakness and pain in his bilateral hips and lower extremities. His EBL was 30 cc and his course was complicated with a partial dural tear however intraoperatively there was 0 evidence of a CSF leak. He was kept 1 ad ditional night in the hospital to monitor for CSF leak and was subsequently discharged to home. On his 2-week follow-up he complained of headaches worse while sitting/standing. He was referred to geta CT of the lumbar spine. That showed an enhancing fluid collection 3.8 x 3.5 x 5.5 consistent witha CSF leak. He then was directly admitted to the hospital under neurosurgical service and underwentan MRI which showed a 6.6 fluid collection and mass effect on the thecal sac resulting in moderate canal stenosis at L3-L4 and L4-L5. He also had a 10.5 cm multiloculated fluid collection in the subcutaneous fat. He is now postoperative status post wound exploration with duraplasty, and lumbar drain placement and estimated blood loss of 50 cc. He was brought postoperatively to the surgical intensive care unit extubated and hemodynamically stable. In the past 24 hours: The patient has remained in flat/reclined position. Continue to monitor CSF drainage. Afebrile. No bowel movements. Objective Vitals and Measurements T: 36.9 C (Oral) TMIN: 36.8 C (Oral) TMAX: 37 C (Oral) HR: 85 (Monitored) RR: 22 BP: 116/70 SpO2: 94% Intake and Output 7AM Yesterday to 7AM Today Intake and Output (Last 24 hours) Intake Oral Intake 1400.00 Administration Information 1200.00 Output Surgical Drain, Tube Output: 360.00 Urine Voided 4250.00 Stool Count 0.00 Total Summary Total Intake 2600.00 Total Output 4610.00 Fluid Balance -2009. Physical Exam General: in bed, NAD HEENT: PERRL, EOMI, MM moist Neck: supple Chest: lungs clear Heart: RRR nl s1 s2 Abdomen: + BS, soft, nontender Extremities: no CCE Neuro: Alert, nonfocal Skin: warm, dry Psych: no anxiety Weight Dosing Weight: 113.6 kg (12/22/23) Medications Medications (24) Active Scheduled: (8) albuterol - ipratropium 2.5 mg-0.5 mg/3 mL Inhal Sherrie UD 3 mL, Inhalation, TIDRT atorvastatin 40 mg tablet 40 mg 1 tab(s), Oral, qDay cefTRIAXone IVP syringe 1 gram(s) 10 mL, IV Push (INT), q12h docusate-senna (Senokot S) 50 mg-8.6 mg Tablet 1 tab(s), Oral, BID gabapentin 300 mg Capsule 300 mg 1 cap(s), Oral, TID metformin 500 mg Tablet 500 mg 1 tab(s), Oral, qDay omeprazole [address] capsule 40 mg 1 cap(s), Oral, qDay traZODONE 100 mg Tablet 200 mg 2 tab(s), Oral, qHS Continuous: (1) NS (0.9% nacl) 1,000 mL 1,000 mL, Intravenous, 50 mL/hr PRN: (15) acetaminophen 325 mg Tablet 650 mg 2 tab(s), Oral, q4h acetaminophen-OXYcodone 325 mg-5 mg Tablet 2 tab(s), Oral, q4h acetaminophen-OXYcodone 325 mg-5 mg Tablet 1 tab(s), Oral, q4h Al hydrox/Mg hydrox/simethicone 200-200-20 mg/5 mL Susp UD 30 mL, Oral, q2h Al hydrox/Mg hydrox/simethicone 200-200-20 mg/5 mL Susp UD 30 mL, Oral, q2h albuterol - ipratropium 2.5 mg-0.5 mg/3 mL Inhal Sherrie UD 3 mL, Inhalation, q2hRT albuterol 0.083% Soln UD (2.5mg/3 mL) 2.5 mg 3 mL, Inhalation, QIDRT benzocaine-menthol (Cepacol Sore Throat) 15 mg-3.6mg lozenge 1 lozenge(s), Oral, q2h dextrose 50% Solution Disp syringe 50 mL 12.5 gram(s) 25 mL, IV Push, AsDirected docusate sodium 100 mg Capsule 100 mg 1 cap(s), Oral, BID docusate sodium 100 mg Capsule 100 mg 1 cap(s), Oral, BID hydralazine 20 mg/mL (1mL) vial 10 mg 0.5 mL, IV Push, q15min magnesium hydroxide 8% Suspension 30 mL UD 30 mL, Oral, qHS ondansetron 2 mg/ 1 mL 2 mL INJ 4 mg 2 mL, IV Push, q4h polyethylene glycol 3350 - UD packet 17 gram(s) 15 mL, Oral, qDay Lab Results 12/26 05:03 WBC: 9.3 Hgb: 11.7 L Hct: 34.2 L Platelet: 273 Neutrophil %: 61.2 Glucose Level: 100 Sodium Level: 140 Potassium Level: 3.8 BUN: 9.0 Creatinine Lvl (s): 0.92 12/25 04:17 WBC: 9.9 Hgb: 10.1 L Hct: 29.3 L Platelet: 257 Neutrophil %: 69.5 Glucose Level: 115 H Sodium Level: 139 Potassium Level: 3.8 BUN: 11.0 Creatinine Lvl (s): 0.90 EKG No qualifying data available. 1. Lumbar radiculopathy, spinal stenosis status post L4-S1 laminectomy with bilateral femoral foraminotomies on complicated by a dural leak. Now postoperative status post wound exploration with duraplasty and lumbar drain placement. 2. History of [id number] diabetes mellitus type 2, hypertension, hyperlipidemia, irritable bowel syndrome, rheumatoid arthritis, 3. DVT and GI prophylaxis Plan: 1. Continuing flat/reclined position. Currently emptying drain 10-15 cc an hour per neurosurgery. 2. Initiate adult endocrine regimen for glycemic control., Continue home gabapentin, metformin, trazodone omeprazole and HCTZ. 3. Rocephin 1 g every 12 hours has been ordered by neurosurgery while drain is in place 4. SCDs for DVT prophylaxis until cleared for chemical DVT prophylaxis by neurosurgery, home omeprazole for GI prophylaxis 5. DuoNeb 3 times daily 6. CPAP at night as tolerated. 7. Addition of scheduled regimen Patient to be monitored in surgical ICU with drains in place. [1] Progress Note; LOY BASS MD 12/26/2023 11:04 EDT Digitally Signed by LOY BASS MD on 12/27/2023 10:35 AM [id number] Note Date of Service 12/25/2023 Split/shared visit with Dr Espinoza Neurosurgery CC: Post lumbar laminectomy dural defect and CSF leak s/p postlaminectomy wound exploration with microscopic duraplasty, lumbar drain placement. POD #1 This is a 48 year old male who known to [facility] as he recently underwent L4-S1 laminectomy with bilateral foraminotomies by Dr. Kapoor on 12/08/2023. Prior to surgery he was experiencing low back pain radiating to bilateral hips and down bilateral lower extremities with paresthesias and we akness. Postoperatively, patient reported benefit with surgery and felt that low back pain and leg pain headache greatly improved postoperatively. Had near resolution of lower extremity paresthesias and felt he was getting stronger. Had a routine 2-week postoperative visit and neurosurgery office 12/21/[address] Kapoor's practitioner. At this appointment, patient reported positional headaches he had been experiencing since coupledays after he had been discharged home from the hospital postop, which he described as a sharp, pressure sensation. Headaches worse with sitting and standing; improved/resolved when laying down and resting. He was ordered to have a lumbar spine CT with contrast to further evaluate for CSF leak postoperatively and advised to lay flat is much as possible. Okay for Tylenol as needed. CT lumbar spine completed the morning of 12/22/2023 and reviewed by office [employer] and power generation turbine room operator neurosurgeon, Dr. Espinoza (Dr. Kapoor out of [facility] Dr. Espinoza provided evidence of a peripherally enhancing fluid collection at the surgical site. According to report, this measures approximately 3.8 x 3.5 x 5.5 cm and appears consistent with a CSF leak. Dr. Espinoza advised for direct admission to the hospital to obtain a stat lumbar spine MRI with and without contrast for further evaluation. Patient kept on strict bedrest; alternating [id number] per Dr. Espinoza in attempt to prevent too much pressure on his lumbar incision to decrease risk of wound dehiscence/CSF leak externally. Patient was agreeable to this and MRI scheduled. MRI of the lumbar spine performed, and then patient was directly admitted to stepdown unit/neurosurgery floor. According to radiologist read shows a 6.6 cm peripheral enhancing fluid collection at the operative site causing mass effect upon the thecal sac and resulting moderate canal stenosis at L3-L4 and L4-L5. Also 10.5 cm multiloculated fluid collection in the subcutaneous fat. 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 Imaging was reviewed thoroughly by Dr. Espinoza. Patient reported on admision that while at home, he noticed towards the evenings at home would havesome puffiness/swelling laterally along the incision, which seemed to go away and dissipate as hemobilized. Was ambulating outside around his apartment complex, and also around inside of his home.Was not overly active and denies any heavy bending, lifting, or twisting motions. Decision was made by on-call neurosurgeon to take patient to the OR 12/24/2023, and a postlaminectomy wound exploration with microscopic duraplasty was performed. Repaired with Dura-Guard, muscle graft, and a combination of the patient's blood and thrombin was placed over the muscle patch and dural closure for reinforcement. Lumbar drain placed intraoperatively. Refer to operative note for complete details of the procedure. Patient was taken to SICU postoperatively. He is now POD #1. Patient has been kept strictly flat in bed since surgery, and 10 cc CSF removed from lumbar drain every hour. Initially immediately after surgery lumbar drain did not drain CSF, therefore it was clamped for several hours before being reopened and then drained hourly. CSF was collected every hour overnight. This morning, patient is seen lying supine in bed, with elevated slightly. He reports no headache and states he has not had a headache at all since surgery. He denies dizziness, nausea or vomiting. He is fully awake and alert. He is oriented. He remains with same improvement of his preoperative symptoms described above. He does mention some slight tingling in the left foot. Lumbar drain output overnight = 80 mL / 8-hour shift. Evening shift output was recorded for total of 25 mL. Dressing overlying drain insertion site is noted with serosanguineous drainage. Objective Vitals and Measurements T: 36.8 C (Oral) TMIN: 34.01 C TMAX: 37.4 C (Oral) HR: 73 (Monitored) RR: 16 BP: 111/75 SpO2: 97% Intake and Output 7AM Yesterday to 7AM Today Intake and Output (Last 24 hours) Intake Administration Information 2800.00 Oral Intake 1050.00 Output Surgical Drain, Tube Output: 140.00 Urine Voided 2975.00 Intra-Op EBL 50.00 Stool Count 0.00 Total Summary Total Intake 3850.00 Total Output 3165.00 Fluid Balance 685.00 Physical Exam See above. Patient is cooperative with exam. He follows commands well, and is oriented appropriately. Speech is clear and fluent. Moves all 4 extremities with excellent symmetrical strength. Intact and equal sensation to light touch present in the upper and lower extremities bilaterally. Patient denies altered sensation to light touch of the left foot Abdomen is soft. Bowel sounds present in all 4 quadrants. No abdominal distention or tenderness with palpation. Lungs are clear bilaterally. Respirations unlabored and even. Regular heart rate and rhythm. S1-S2 present. Weight Dosing Weight: 113.6 kg (12/22/23) Medications Medications (26) Active Scheduled: (8) atorvastatin 40 mg tablet 40 mg 1 tab(s), Oral, qDay cefTRIAXone IVP syringe 1 gram(s) 10 mL, IV Push (INT), q12h docusate-senna (Senokot S) 50 mg-8.6 mg Tablet 1 tab(s), Oral, BID gabapentin 300 mg Capsule 300 mg 1 cap(s), Oral, TID hydrochlorothiazide 25 mg tablet 25 mg 1 tab(s), Oral, qDay metformin 500 mg Tablet 500 mg 1 tab(s), Oral, qDay omeprazole [address] capsule 40 mg 1 cap(s), Oral, qDay traZODONE 100 mg Tablet 200 mg 2 tab(s), Oral, qHS Continuous: (2) NS (0.9% nacl) 1,000 mL 1,000 mL, Intravenous, 50 mL/hr NS (0.9% nacl) 1,000 mL 1,000 mL, Intravenous, 75 mL/hr PRN: (16) acetaminophen 325 mg Tablet 650 mg 2 tab(s), Oral, q4h acetaminophen-OXYcodone 325 mg-5 mg Tablet 2 tab(s), Oral, q4h acetaminophen-OXYcodone 325 mg-5 mg Tablet 1 tab(s), Oral, q4h Al hydrox/Mg hydrox/simethicone 200-200-20 mg/5 mL Susp UD 30 mL, Oral, q2h Al hydrox/Mg hydrox/simethicone 200-200-20 mg/5 mL Susp UD 30 mL, Oral, q2h albuterol 0.083% Soln UD (2.5mg/3 mL) 2.5 mg 3 mL, Inhalation, QIDRT benzocaine-menthol (Cepacol Sore Throat) 15 mg-3.6mg lozenge 1 lozenge(s), Oral, q2h dextrose 50% Solution Disp syringe 50 mL 12.5 gram(s) 25 mL, IV Push, AsDirected docusate sodium 100 mg Capsule 100 mg 1 cap(s), Oral, BID docusate sodium 100 mg Capsule 100 mg 1 cap(s), Oral, BID hydralazine 20 mg/mL (1mL) vial 10 mg 0.5 mL, IV Push, q15min HYDROmorphone 0.5 mg/0.5 mL PF syringe 0.2 mg 0.2 mL, IV Push, q2h magnesium hydroxide 8% Suspension 30 mL UD 30 mL, Oral, qHS ondansetron 2 mg/ 1 mL 2 mL INJ 4 mg 2 mL, IV Push, q4h polyethylene glycol 3350 - UD packet 17 gram(s) 15 mL, Oral, qDay tiZANidine 4 mg tablet 4 mg 1 tab(s), Oral, q8h Lab Results 12/24 05:46 WBC: 12.7 H Hgb: 13.9 Hct: 41.3 Platelet: 308 Neutrophil %: 81.1 H EKG EKG - Completed -- 12/23/23 9:00:00 EDT Assessment/Plan Post lumbar laminectomy dural defect and CSF leak s/p postlaminectomy wound exploration with microscopic duraplasty, lumbar drain placement. POD #1 Had L4-S1 laminectomy with bilateral foraminotomies by Dr. Kapoor on 12/08/2023 c/o positional headaches, which patient indicates started 2-3 days after discharge from prior hospitalization on 12/11/2023 Seen in Neurosurgery office 12/21/23 for scheduled 2 week postop appointment; patient reported positional headaches, and therefore a CT lumbar spine was obtained outpatient the morning of 12/22/[address] Espinoza reviewed CT with office [employer], providing their is evidence of a peripherally enhancing fluid collection at the surgical site, measures approximately 3.8 x 3.5 x 5.5 cm and appears consistent with a CSF leak. Dr. Espinoza advised direct admission to the hospital. A stat lumbar spine MRI with and without contrast performed ; read as having a 6.6 cm peripheral enhancing fluid collection at the operative site causing mass effect upon the thecal sac and resulting moderate canal stenosis at L3-L4 and L4-L5. Also 10.5 cm multiloculated fluid collection in the subcutaneous fat. 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 Imaging was thoroughly reviewed by Dr. Espinoza; findings were discussed with patient and his family by Dr. Espinoza. Decision was made by on-call neurosurgeon to take patient to the OR 12/24/2023 for postlaminectomy wound exploration with microscopic duraplasty. Per opertive note: CSF leak was repaired with Dura-Guard, muscle graft, and a combination of the patient's blood and thrombin was placed over the muscle patch and dural closure for reinforcement. Lumbar drain placed intraoperatively. Now in SICU postoperatively, and POD #1. Overall patient is doing well. Has been kept on strict bedrest with allowance of head of bed being elevated to maximum of 10 degrees. He will be kept flat in bed for at least 72 hours postop. He denies any headaches overnight, and has no headache this morning. Denies dizziness, nausea or vomiting. Postop, ordered for 10 cc CSF removed from drain q1 hour. Initially drained had no CSF to drain, soit was clamped for several hours before being reopened and then drained hourly. CSF been successfully collected every hour overnight. Patient tolerated well, remaining asymptomatic. Dr. Espinoza is now requesting 15 mL CSF be removed every hour. If patient develops headache, then skip draining CSF the next hour, resuming then the hour after that. Also notify neurosurgery if patient develops headache. Continue Rocephin twice daily prophylactically while drain is in place. Will follow-up dressing over lumbar drain insertion site changed. Dressing to be kept clean and dryat all times. Findings at the time of surgery, and details of duraplasty discussed with the patient by Dr. Espinoza. Patient is complaining of surgical related pain at his back. Will increase frequency of Percocet from every 6 hours to every 4 hours. Will D/C IV Dilaudid Dr. Espinoza's request. Please refer to Dr. Espinoza's note for further details of his neurosurgical input and recommendations for treatment. Digitally Signed by DAYNE DUVAL on 12/25/2023 03:01 PM [id number] Note Date of Service 12/25/2023 Split/shared visit with Dr Espinoza Neurosurgery CC: Post lumbar laminectomy dural defect and CSF leak s/p postlaminectomy wound exploration with microscopic duraplasty, lumbar drain placement. POD #1 This is a 48 year old male who known to [facility] as he recently underwent L4-S1 laminectomy with bilateral foraminotomies by Dr. Kapoor on 12/08/2023. Prior to surgery he was experiencing low back pain radiating to bilateral hips and down bilateral lower extremities with paresthesias and we akness. Postoperatively, patient reported benefit with surgery and felt that low back pain and leg pain headache greatly improved postoperatively. Had near resolution of lower extremity paresthesias and felt he was getting stronger. Had a routine 2-week postoperative visit and neurosurgery office 12/21/[address] Kapoor's practitioner. At this appointment, patient reported positional headaches he had been experiencing since coupledays after he had been discharged home from the hospital postop, which he described as a sharp, pressure sensation. Headaches worse with sitting and standing; improved/resolved when laying down and resting. He was ordered to have a lumbar spine CT with contrast to further evaluate for CSF leak postoperatively and advised to lay flat is much as possible. Okay for Tylenol as needed. CT lumbar spine completed the morning of 12/22/2023 and reviewed by office [employer] and power generation turbine room operator neurosurgeon, Dr. Espinoza (Dr. Kapoor out of [facility]). Dr. Espinoza provided evidence of a peripherally enhancing fluid collection at the surgical site. According to report, this measures approximately 3.8 x 3.5 x 5.5 cm and appears consistent with a CSF leak. Dr. Espinoza advised for direct admission to the hospital to obtain a stat lumbar spine MRI with and without contrast for further evaluation. Patient kept on strict bedrest; alternating [id number] per Dr. Espinoza in attempt to prevent too much pressure on his lumbar incision to decrease risk of wound dehiscence/CSF leak externally. Patient was agreeable to this and MRI scheduled. MRI of the lumbar spine performed, and then patient was directly admitted to stepdown unit/neurosurgery floor. According to radiologist read shows a 6.6 cm peripheral enhancing fluid collection at the operative site causing mass effect upon the thecal sac and resulting moderate canal stenosis at L3-L4 and L4-L5. Also 10.5 cm multiloculated fluid collection in the subcutaneous fat. 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 Imaging was reviewed thoroughly by Dr. Espinoza. Patient reported on admision that while at home, he noticed towards the evenings at home would havesome puffiness/swelling laterally along the incision, which seemed to go away and dissipate as hemobilized. Was ambulating outside around his apartment complex, and also around inside of his home.Was not overly active and denies any heavy bending, lifting, or twisting motions. Decision was made by on-call neurosurgeon to take patient to the OR 12/24/2023, and a postlaminectomy wound exploration with microscopic duraplasty was performed. Repaired with Dura-Guard, muscle graft, and a combination of the patient's blood and thrombin was placed over the muscle patch and dural closure for reinforcement. Lumbar drain placed intraoperatively. Refer to operative note for complete details of the procedure. Patient was taken to SICU postoperatively. He is now POD #1. Patient has been kept strictly flat in bed since surgery, and 10 cc CSF removed from lumbar drain every hour. Initially immediately after surgery lumbar drain did not drain CSF, therefore it was clamped for several hours before being reopened and then drained hourly. CSF was collected every hour overnight. This morning, patient is seen lying supine in bed, with elevated slightly. He reports no headache and states he has not had a headache at all since surgery. He denies dizziness, nausea or vomiting. He is fully awake and alert. He is oriented. He remains with same improvement of his preoperative symptoms described above. He does mention some slight tingling in the left foot. Lumbar drain output overnight = 80 mL / 8-hour shift. Evening shift output was recorded for total of 25 mL. Dressing overlying drain insertion site is noted with serosanguineous drainage. Objective Vitals and Measurements T: 36.8 C (Oral) TMIN: 34.01 C TMAX: 37.4 C (Oral) HR: 73 (Monitored) RR: 16 BP: 111/75 SpO2: 97% Intake and Output 7AM Yesterday to 7AM Today Intake and Output (Last 24 hours) Intake Administration Information 2800.00 Oral Intake 1050.00 Output Surgical Drain, Tube Output: 140.00 Urine Voided 2975.00 Intra-Op EBL 50.00 Stool Count 0.00 Total Summary Total Intake 3850.00 Total Output 3165.00 Fluid Balance 685.00 Physical Exam See above. Patient is cooperative with exam. He follows commands well, and is oriented appropriately. Speech is clear and fluent. Moves all 4 extremities with excellent symmetrical strength. Intact and equal sensation to light touch present in the upper and lower extremities bilaterally. Patient denies altered sensation to light touch of the left foot Abdomen is soft. Bowel sounds present in all 4 quadrants. No abdominal distention or tenderness with palpation. Lungs are clear bilaterally. Respirations unlabored and even. Regular heart rate and rhythm. S1-S2 present. Weight Dosing Weight: 113.6 kg (12/22/23) Medications Medications (26) Active Scheduled: (8) atorvastatin 40 mg tablet 40 mg 1 tab(s), Oral, qDay cefTRIAXone IVP syringe 1 gram(s) 10 mL, IV Push (INT), q12h docusate-senna (Senokot S) 50 mg-8.6 mg Tablet 1 tab(s), Oral, BID gabapentin 300 mg Capsule 300 mg 1 cap(s), Oral, TID hydrochlorothiazide 25 mg tablet 25 mg 1 tab(s), Oral, qDay metformin 500 mg Tablet 500 mg 1 tab(s), Oral, qDay omeprazole [address] capsule 40 mg 1 cap(s), Oral, qDay traZODONE 100 mg Tablet 200 mg 2 tab(s), Oral, qHS Continuous: (2) NS (0.9% nacl) 1,000 mL 1,000 mL, Intravenous, 50 mL/hr NS (0.9% nacl) 1,000 mL 1,000 mL, Intravenous, 75 mL/hr PRN: (16) acetaminophen 325 mg Tablet 650 mg 2 tab(s), Oral, q4h acetaminophen-OXYcodone 325 mg-5 mg Tablet 2 tab(s), Oral, q4h acetaminophen-OXYcodone 325 mg-5 mg Tablet 1 tab(s), Oral, q4h Al hydrox/Mg hydrox/simethicone 200-200-20 mg/5 mL Susp UD 30 mL, Oral, q2h Al hydrox/Mg hydrox/simethicone 200-200-20 mg/5 mL Susp UD 30 mL, Oral, q2h albuterol 0.083% Soln UD (2.5mg/3 mL) 2.5 mg 3 mL, Inhalation, QIDRT benzocaine-menthol (Cepacol Sore Throat) 15 mg-3.6mg lozenge 1 lozenge(s), Oral, q2h dextrose 50% Solution Disp syringe 50 mL 12.5 gram(s) 25 mL, IV Push, AsDirected docusate sodium 100 mg Capsule 100 mg 1 cap(s), Oral, BID docusate sodium 100 mg Capsule 100 mg 1 cap(s), Oral, BID hydralazine 20 mg/mL (1mL) vial 10 mg 0.5 mL, IV Push, q15min HYDROmorphone 0.5 mg/0.5 mL PF syringe 0.2 mg 0.2 mL, IV Push, q2h magnesium hydroxide 8% Suspension 30 mL UD 30 mL, Oral, qHS ondansetron 2 mg/ 1 mL 2 mL INJ 4 mg 2 mL, IV Push, q4h polyethylene glycol 3350 - UD packet 17 gram(s) 15 mL, Oral, qDay tiZANidine 4 mg tablet 4 mg 1 tab(s), Oral, q8h Lab Results 12/24 05:46 WBC: 12.7 H Hgb: 13.9 Hct: 41.3 Platelet: 308 Neutrophil %: 81.1 H EKG EKG - Completed -- 12/23/23 9:00:00 EDT Assessment/Plan Post lumbar laminectomy dural defect and CSF leak s/p postlaminectomy wound exploration with microscopic duraplasty, lumbar drain placement. POD #1 Had L4-S1 laminectomy with bilateral foraminotomies by Dr. Kapoor on 12/08/2023 c/o positional headaches, which patient indicates started 2-3 days after discharge from prior hospitalization on 12/11/2023 Seen in Neurosurgery office 12/21/23 for scheduled 2 week postop appointment; patient reported positional headaches, and therefore a CT lumbar spine was obtained outpatient the morning of 12/22/[address] Espinoza reviewed CT with office [employer], providing their is evidence of a peripherally enhancing fluid collection at the surgical site, measures approximately 3.8 x 3.5 x 5.5 cm and appears consistent with a CSF leak. Dr. Espinoza advised direct admission to the hospital. A stat lumbar spine MRI with and without contrast performed ; read as having a 6.6 cm peripheral enhancing fluid collection at the operative site causing mass effect upon the thecal sac and resulting moderate canal stenosis at L3-L4 and L4-L5. Also 10.5 cm multiloculated fluid collection in the subcutaneous fat. 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 Imaging was thoroughly reviewed by Dr. Espinoza; findings were discussed with patient and his family by Dr. Espinoza. Decision was made by on-call neurosurgeon to take patient to the OR 12/24/2023 for postlaminectomy wound exploration with microscopic duraplasty. Per opertive note: CSF leak was repaired with Dura-Guard, muscle graft, and a combination of the patient's blood and thrombin was placed over the muscle patch and dural closure for reinforcement. Lumbar drain placed intraoperatively. Now in SICU postoperatively, and POD #1. Overall patient is doing well. Has been kept on strict bedrest with allowance of head of bed being elevated to maximum of 10 degrees. He will be kept flat in bed for at least 72 hours postop. He denies any headaches overnight, and has no headache this morning. Denies dizziness, nausea or vomiting. Postop, ordered for 10 cc CSF removed from drain q1 hour. Initially drained had no CSF to drain, soit was clamped for several hours before being reopened and then drained hourly. CSF been successfully collected every hour overnight. Patient tolerated well, remaining asymptomatic. Dr. Espinoza is now requesting 15 mL CSF be removed every hour. If patient develops headache, then skip draining CSF the next hour, resuming then the hour after that. Also notify neurosurgery if patient develops headache. Continue Rocephin twice daily prophylactically while drain is in place. Will follow-up dressing over lumbar drain insertion site changed. Dressing to be kept clean and dryat all times. Findings at the time of surgery, and details of duraplasty discussed with the patient by Dr. Espinoza. Patient is complaining of surgical related pain at his back. Will increase frequency of Percocet from every 6 hours to every 4 hours. Will D/C IV Dilaudid Dr. Espinoza's request. Please refer to Dr. Espinoza's note for further details of his neurosurgical input and recommendations for treatment. Digitally Signed by DAYNE DUVAL APRN-ERIC on 12/25/2023 03:01 PM [id number] Critical care medicine Consult note Date of Service 12/24/2023 Reason for Consultation Critical care management and surgical intensive care unit Referring Physician Dr. espinoza History of Present Illness Reji Llanos is a 48-year-old male with a past medical history significant for smoker approximately 1 pack/day for 34 years, GERD, COPD, [id number] diabetes type 2, dyslipidemia, hypertension, irritable bowel syndrome, reported rheumatoid arthritis though he sees says he is not on any medications and is referred to rheumatology for January, lumbar radiculopathy, spinal stenosis, who underwent L4-S1 laminectomy with bilateral foraminotomies on 12-08-2023 secondary to paresthesias weakness and pain in his bilateral hips and lower extremities. His EBL was 30 cc and his course was complicated with a partial dural tear however intraoperatively there was 0 evidence of a CSF leak. He was kept 1 additional night in the hospital to monitor for CSF leak and was subsequently discharged to home. On his 2-week follow-up he complained of headaches worse while sitting/standing.He was referred to get a CT of the lumbar spine. That showed an enhancing fluid collection 3.8 x 3.5 x 5.5 consistent with a CSF leak. He then was directly admitted to the hospital under neurosurgical service and underwent an MRI which showed a 6.6 fluid collection and mass effect on the thecal sacresulting in moderate canal stenosis at L3-L4 and L4-L5. He also had a 10.5 cm multiloculated fluidcollection in the subcutaneous fat. He is now postoperative day #0 status post wound exploration with duraplasty, and lumbar drain placement and estimated blood loss of 50 cc. He was brought postoperatively to the surgical intensive care unit extubated and hemodynamically stable. He is alert and oriented and moves all extremities. He complains of achy pain throughout. He states that the numbness and weakness and sharp shooting pain in his bilateral hips is resolved. He is to lay flat for approximately 72 hours per neurosurgical services. Review of Systems Constituational: Denies any changes in weight, fevers chills, or sweats. Denies lethargy/generalized weakness. Eyes: Denies any changes in vision. No drainage ENT: Denies any earache. Denies any runny nose denies sore throat. Cardiovascular: Denies chest pain palpitations PND or orthopnea Respiratory: Denies any shortness of breath at rest or on exertion. No cough no wheezing Gastrointestinal: Denies nausea vomiting diarrhea or constipation. Denies any bloody stools Genitourinary: Denies urinary frequency dysuria and hematuria Musculoskeletal: Denies joint pain or swelling. Complains of generalized muscle aches. Skin: Denies any skin lesions or rashes Neurological: Denies any weakness, changes in level of consciousness, no loss of neurosensory or focal deficits Psychiatric: Denies depression. Denies insomnia. Denies homicidal or suicidal thoughts. Endocrine: Denies cold and heat intolerance. No polyuria no polydipsia Hematological/lymphatic: Denies lymphadenopathy, no easy bruising Physical Exam General: Alert, no acute distress HEENT: Normocephalic, atraumatic, PERRLA, sclera nonicteri,c mucous membranes moist, trachea midline Neck: No JVD, no adenopathy, supple Cardiac: Regular rate and rhythm, normal S1-S2, no murmur rubs or gallops. Respiratory: Lungs clear bilaterally, No rales, rhonchi, or wheezes. Respirations easy and unlabored Abdomen: Soft, nondistended, no organomegaly, no tenderness or rigidity, normoactive bowel sounds Extremities: No pedal edema, no cyanosis, palpable pulses bilaterally Musculoskeletal: No joint deformities, no muscle tenderness Neurological: alert and oriented x3, no focal deficits. Skin: warm and dry, no rashes or ulcerations. No lesions or petechiae Lab Results No 36 Hour Lab Data Imaging Results and Diagnostics XR Fluoro < 1Hr Tech Time Result Date: December 24, 2023 Verified By: MATHEUS REGAN, KARIE Mcclellan CLINICAL STATEMENT: IMPRESSION: Intraprocedural fluoroscopic spot images as above. See separate procedurereport for more information. Assessment/Plan 1. Lumbar radiculopathy, spinal stenosis status post L4-S1 laminectomy with bilateral femoral foraminotomies on complicated by a dural leak. Now postoperative day #0 status post wound exploration with duraplasty and lumbar drain placement. 2. History of [id number] diabetes mellitus type 2, hypertension, hyperlipidemia, irritable bowel syndrome, rheumatoid arthritis, 3. DVT and GI prophylaxis Plan: 1. Keep patient flat for 72 hours with lumbar drain placement per neurosurgical guidance. Empty drain 10 cc/h. 2. Initiate adult endocrine regimen for glycemic control., Continue home gabapentin, metformin, trazodone omeprazole and HCTZ, 3. Rocephin 1 g every 12 hours has been ordered by neurosurgery while drain is in place 4. SCDs for DVT prophylaxis until cleared for chemical DVT prophylaxis by neurosurgery, home omeprazole for GI prophylaxis 5. Check CBC and BMP in morning 6. The above assessment and plan has been discussed with Dr. Sanchez. 33 minutes critical care time Problem List/Past Medical History Ongoing Abdominal pain Acid reflux Asthma COPD mixed type Diarrhea Hyperlipidemia Hypertension Kidney stones Lumbar radiculopathy Lung nodule Migraine Nicotine dependence Postural dizziness Prediabetes Preop examination Renal cyst Rheumatoid arthritis Vitamin D deficiency Wellness examination Historical Burn Procedure/Surgical History Laminectomy: 12/08/23 Tooth extraction Extraction of wisdom tooth Eye Injection ESWL (extracorporeal shockwave lithotripsy) of ureteric calculus EGD (esophagogastroduodenoscopy) gastric outlet reduction Colonoscopy Hernia repair Insertion of aylin through fracture Cholecystectomy Medications Inpatient albuterol, 2.5 mg= 3 mL, Inhalation, QIDRT, PRN Apresoline, 10 mg= 0.5 mL, IV Push, q15min, PRN atorvastatin, 40 mg= 1 tab(s), Oral, qDay atropine 0.4 mg/mL injectable solution ( PACU ), 0.4 mg= 1 mL, IV Push, AsDirected, PRN cefTRIAXone, 1 gram(s)= 10 mL, IV Push (INT), q12h Cepacol Sore Throat lozenge, 1 lozenge(s), Oral, q2h, PRN Colace, 100 mg= 1 cap(s), Oral, BID, PRN Colace, 100 mg= 1 cap(s), Oral, BID, PRN Dextrose 50% IV Push, 12.5 gram(s)= 25 mL, IV Push, AsDirected, PRN Dilaudid, 0.2 mg= 0.2 mL, IV Push, q2h, PRN fentaNYL ( PACU ), 25 mcg= 0.5 mL, IV Push, q5min, PRN gabapentin, 300 mg= 1 cap(s), Oral, TID hydroCHLOROthiazide, 25 mg= 1 tab(s), Oral, qDay Maalox, 30 mL, Oral, q2h, PRN Maalox, 30 mL, Oral, q2h, PRN metFORMIN 500 mg oral tablet (IR), 500 mg= 1 tab(s), Oral, qDay Milk of Magnesia, 30 mL, Oral, qHS, PRN Miralax Powder Packet, 17 gram(s)= 15 mL, Oral, qDay, PRN NS 1,000 mL, 1000 mL, Intravenous NS 1,000 mL, 1000 mL, Intravenous omeprazole, 40 mg= 1 cap(s), Oral, qDay Percocet 325/5, 1 tab(s), Oral, q6hr, PRN Percocet 325/5, 2 tab(s), Oral, q6hr, PRN Senokot S, 1 tab(s), Oral, BID tiZANidine, 4 mg= 1 tab(s), Oral, q8h, PRN traZODone, 200 mg= 2 tab(s), Oral, qHS Tylenol, 650 mg= 2 tab(s), Oral, q4h, PRN Zofran, 4 mg= 2 mL, IV Push, q4h, PRN Zofran ( PACU ), 4 mg= 2 mL, IV Push, AsDirected, PRN Home Albuterol (Eqv-Ventolin HFA) 90 mcg/inh inhalation aerosol, 1 puff(s), Inhalation, QID, PRN atorvastatin 40 mg oral tablet, 40 mg= 1 tab(s), Oral, qDay Colace 100 mg oral capsule, 100 mg= 1 cap(s), Oral, BID, PRN DME MISCellaneous, See Instructions DME MISCellaneous, See Instructions ergocalciferol 50,000 intl units (1.25 mg) oral capsule, 1 cap(s), Oral, qWeek gabapentin 300 mg oral capsule, 1 cap(s), Oral, TID hydroCHLOROthiazide 25 mg oral tablet, 1 tab(s), Oral, qDay hyoscyamine 0.125 mg sublingual tablet, 0.125 mg= 1 tab(s), Sublingual, QID lidocaine 5% topical patch, See Instructions metFORMIN 500 mg oral tablet (IR), 500 mg= 1 tab(s), Oral, qDay omeprazole 40 mg oral delayed release capsule, 40 mg= 1 cap(s), Oral, qDay Spiriva Respimat 1.25 mcg/inh inhalation aerosol, 2 puff(s), Inhalation, qDay tiZANidine 4 mg oral tablet, 1 tab(s), Oral, q8h, PRN traZODone 100 mg oral tablet, 2 tab(s), Oral, qHS Allergies Tape RASH Vicodin VOMITTING Social History Smoking Status - 01/05/2018 Former smoker Alcohol - Low Risk, 08/25/2017 Use: Current. Frequency: 1-2 times per year., 11/27/2023 Home/Environment Domestic Concerns: Denies., 11/27/2023 Nutrition/Health Type of diet: Regular. Appetite Excellent., 07/06/2020 Substance Abuse - Denies Substance Abuse, 08/25/2017 Use: Current. Type: Marijuana, MEDICAL MARIJUANA. Frequency: 1-2 times per week., 11/27/2023 Tobacco Nicotine Use: STATES CHEWS 1-2 TIMES A MONTH. Type: Oral (Snuff, Chew)., 11/27/2023 Nicotine Use: 10 or more cigarettes (1/2 pack or more)/day in last 30 days. Type: Cigarettes. Tobacco use per day: 10. Started at age: 14 Years. Ready to change: Yes. Smoking Cessation Information Instructed to not smoke day of surgery., 11/27/2023 Family History Cancer: Mother and Father. Diabetes mellitus: Mother and Father. Heart disease: Mother and Father. Health Status Family Member(s) Immunizations pneumococcal 23-valent vaccine(Pneumovax: 0.5 unknown unit (09/17/17) tetanus/diphth/pertuss (Tdap) adult/adol: 0.5 mL (01/04/18) Digitally Signed by SOFIE MCLAIN on 12/24/2023 08:22 PM Digitally Signed by LUKE SANCHEZ MD on 12/25/2023 06:18 AM [id number] Progress note Patient: REJI VICTOR Age: 48 years Sex: Male : 1975 Associated Diagnoses: None Author: TRE LEIVA MD Postoperative Information Post Operative Info: Post op day: POD0. Patient location: ICU. Assessment Postanesthesia assessment Vitals: Vital signs from flowsheet : Vital Signs 12/24/2023 18:40 EDT Heart Rate Monitored 86 bpm Respiratory Rate 20 br/min Systolic Blood Pressure Non-Invasive 119 mmHg Diastolic Blood Pressure Non-Invasive 76 mmHg Mean Arterial Pressure (NBP) 89 mmHg Reason For Taking VItal Signs Routine 12/24/2023 18:10 EDT Heart Rate Monitored 81 bpm Respiratory Rate 20 br/min Systolic Blood Pressure Non-Invasive 125 mmHg Diastolic Blood Pressure Non-Invasive 83 mmHg Mean Arterial Pressure (NBP) 96 mmHg 12/24/2023 17:42 EDT Heart Rate Monitored 83 bpm Respiratory Rate 17 br/min Systolic Blood Pressure Non-Invasive 114 mmHg Diastolic Blood Pressure Non-Invasive 69 mmHg Mean Arterial Pressure (NBP) 75 mmHg Reason For Taking VItal Signs Routine 12/24/2023 17:25 EDT Heart Rate Monitored 88 bpm Respiratory Rate 14 br/min Systolic Blood Pressure Non-Invasive 109 mmHg Diastolic Blood Pressure Non-Invasive 80 mmHg Mean Arterial Pressure (NBP) 90 mmHg 12/24/2023 17:10 EDT Heart Rate Monitored 85 bpm Respiratory Rate 16 br/min Systolic Blood Pressure Non-Invasive 114 mmHg Diastolic Blood Pressure Non-Invasive 82 mmHg Mean Arterial Pressure (NBP) 93 mmHg 12/24/2023 16:55 EDT Heart Rate Monitored 88 bpm Respiratory Rate 17 br/min Systolic Blood Pressure Non-Invasive 111 mmHg Diastolic Blood Pressure Non-Invasive 54 mmHg LOW Mean Arterial Pressure (NBP) 68 mmHg 12/24/2023 16:50 EDT Respiratory Rate - Anes 0 br/min br/min 12/24/2023 16:45 EDT Respiratory Rate - Anes 0 br/min br/min 12/24/2023 16:41 EDT Temperature Oral 37.4 DegC HI Heart Rate Monitored 86 bpm Respiratory Rate 17 br/min Systolic Blood Pressure Non-Invasive 97 mmHg Diastolic Blood Pressure Non-Invasive 62 mmHg Reason For Taking VItal Signs Routine 12/24/2023 16:40 EDT Respiratory Rate - Anes 0 br/min br/min 12/24/2023 16:35 EDT Respiratory Rate - Anes 0 br/min br/min 12/24/2023 16:30 EDT Heart Rate Monitored 90 bpm bpm Respiratory Rate - Anes 18 br/min br/min 12/24/2023 16:26 EDT Systolic Blood Pressure Non-Invasive 150 mmHg mmHg Diastolic Blood Pressure Non-Invasive 138 mmHg mmHg 12/24/2023 16:25 EDT Respiratory Rate - Anes 13 br/min br/min 12/24/2023 16:22 EDT Systolic Blood Pressure Non-Invasive 106 mmHg mmHg Diastolic Blood Pressure Non-Invasive 75 mmHg mmHg 12/24/2023 16:20 EDT Heart Rate Monitored 90 bpm bpm Respiratory Rate - Anes 11 br/min br/min 12/24/2023 16:19 EDT Systolic Blood Pressure Non-Invasive 102 mmHg mmHg Diastolic Blood Pressure Non-Invasive 69 mmHg mmHg 12/24/2023 16:16 EDT Systolic Blood Pressure Non-Invasive 102 mmHg mmHg Diastolic Blood Pressure Non-Invasive 69 mmHg mmHg 12/24/2023 16:15 EDT Heart Rate Monitored 87 bpm bpm Respiratory Rate - Anes 14 br/min br/min 12/24/2023 16:13 EDT Systolic Blood Pressure Non-Invasive 103 mmHg mmHg Diastolic Blood Pressure Non-Invasive 67 mmHg mmHg 12/24/2023 16:10 EDT Heart Rate Monitored 87 bpm bpm Respiratory Rate - Anes 9 br/min br/min Systolic Blood Pressure Non-Invasive 105 mmHg mmHg Diastolic Blood Pressure Non-Invasive 82 mmHg mmHg 12/24/2023 16:07 EDT Systolic Blood Pressure Non-Invasive 114 mmHg mmHg Diastolic Blood Pressure Non-Invasive 75 mmHg mmHg 12/24/2023 16:05 EDT Heart Rate Monitored 88 bpm bpm Respiratory Rate - Anes 14 br/min br/min 12/24/2023 16:04 EDT Systolic Blood Pressure Non-Invasive 105 mmHg mmHg Diastolic Blood Pressure Non-Invasive 73 mmHg mmHg 12/24/2023 16:01 EDT Systolic Blood Pressure Non-Invasive 107 mmHg mmHg Diastolic Blood Pressure Non-Invasive 65 mmHg mmHg 12/24/2023 16:00 EDT Temperature (Route Not Specified) 36.63 DegC DegC Heart Rate Monitored 87 bpm bpm Respiratory Rate - Anes 15 br/min br/min 12/24/2023 15:58 EDT Systolic Blood Pressure Non-Invasive 117 mmHg mmHg Diastolic Blood Pressure Non-Invasive 75 mmHg mmHg 12/24/2023 15:55 EDT Temperature (Route Not Specified) 36.6 DegC DegC Heart Rate Monitored 85 bpm bpm Respiratory Rate - Anes 14 br/min br/min Systolic Blood Pressure Non-Invasive 120 mmHg mmHg Diastolic Blood Pressure Non-Invasive 87 mmHg mmHg 12/24/2023 15:52 EDT Systolic Blood Pressure Non-Invasive 129 mmHg mmHg Diastolic Blood Pressure Non-Invasive 101 mmHg mmHg 12/24/2023 15:50 EDT Temperature (Route Not Specified) 36.58 DegC DegC Heart Rate Monitored 86 bpm bpm Respiratory Rate - Anes 16 br/min br/min 12/24/2023 15:49 EDT Systolic Blood Pressure Non-Invasive 115 mmHg mmHg Diastolic Blood Pressure Non-Invasive 79 mmHg mmHg 12/24/2023 15:46 EDT Systolic Blood Pressure Non-Invasive 116 mmHg mmHg Diastolic Blood Pressure Non-Invasive 76 mmHg mmHg 12/24/2023 15:45 EDT Temperature (Route Not Specified) 36.55 DegC DegC Heart Rate Monitored 83 bpm bpm Respiratory Rate - Anes 14 br/min br/min 12/24/2023 15:43 EDT Systolic Blood Pressure Non-Invasive 120 mmHg mmHg Diastolic Blood Pressure Non-Invasive 79 mmHg mmHg 12/24/2023 15:40 EDT Temperature (Route Not Specified) 36.53 DegC DegC Heart Rate Monitored 89 bpm bpm Respiratory Rate - Anes 13 br/min br/min Systolic Blood Pressure Non-Invasive 103 mmHg mmHg Diastolic Blood Pressure Non-Invasive 61 mmHg mmHg 12/24/2023 15:37 EDT Systolic Blood Pressure Non-Invasive 115 mmHg mmHg Diastolic Blood Pressure Non-Invasive 76 mmHg mmHg 12/24/2023 15:35 EDT Temperature (Route Not Specified) 36.5 DegC DegC Heart Rate Monitored 82 bpm bpm Respiratory Rate - Anes 12 br/min br/min 12/24/2023 15:34 EDT Systolic Blood Pressure Non-Invasive 117 mmHg mmHg Diastolic Blood Pressure Non-Invasive 80 mmHg mmHg 12/24/2023 15:31 EDT Systolic Blood Pressure Non-Invasive 112 mmHg mmHg Diastolic Blood Pressure Non-Invasive 72 mmHg mmHg 12/24/2023 15:30 EDT Temperature (Route Not Specified) 36.46 DegC DegC Heart Rate Monitored 90 bpm bpm Respiratory Rate - Anes 12 br/min br/min 12/24/2023 15:28 EDT Systolic Blood Pressure Non-Invasive 105 mmHg mmHg Diastolic Blood Pressure Non-Invasive 70 mmHg mmHg 12/24/2023 15:25 EDT Temperature (Route Not Specified) 36.42 DegC DegC Heart Rate Monitored 82 bpm bpm Respiratory Rate - Anes 12 br/min br/min Systolic Blood Pressure Non-Invasive 96 mmHg mmHg Diastolic Blood Pressure Non-Invasive 69 mmHg mmHg 12/24/2023 15:22 EDT Systolic Blood Pressure Non-Invasive 112 mmHg mmHg Diastolic Blood Pressure Non-Invasive 72 mmHg mmHg 12/24/2023 15:20 EDT Temperature (Route Not Specified) 36.38 DegC DegC Heart Rate Monitored 81 bpm bpm Respiratory Rate - Anes 12 br/min br/min 12/24/2023 15:19 EDT Systolic Blood Pressure Non-Invasive 115 mmHg mmHg Diastolic Blood Pressure Non-Invasive 71 mmHg mmHg 12/24/2023 15:16 EDT Systolic Blood Pressure Non-Invasive 110 mmHg mmHg Diastolic Blood Pressure Non-Invasive 80 mmHg mmHg 12/24/2023 15:15 EDT Temperature (Route Not Specified) 36.38 DegC DegC Heart Rate Monitored 87 bpm bpm Respiratory Rate - Anes 12 br/min br/min 12/24/2023 15:13 EDT Systolic Blood Pressure Non-Invasive 115 mmHg mmHg Diastolic Blood Pressure Non-Invasive 85 mmHg mmHg 12/24/2023 15:10 EDT Temperature (Route Not Specified) 36.38 DegC DegC Heart Rate Monitored 81 bpm bpm Respiratory Rate - Anes 12 br/min br/min Systolic Blood Pressure Non-Invasive 103 mmHg mmHg Diastolic Blood Pressure Non-Invasive 70 mmHg mmHg 12/24/2023 15:07 EDT Systolic Blood Pressure Non-Invasive 103 mmHg mmHg Diastolic Blood Pressure Non-Invasive 71 mmHg mmHg 12/24/2023 15:05 EDT Temperature (Route Not Specified) 36.39 DegC DegC Heart Rate Monitored 100 bpm bpm Respiratory Rate - Anes 12 br/min br/min 12/24/2023 15:04 EDT Systolic Blood Pressure Non-Invasive 110 mmHg mmHg Diastolic Blood Pressure Non-Invasive 76 mmHg mmHg 12/24/2023 15:01 EDT Systolic Blood Pressure Non-Invasive 110 mmHg mmHg Diastolic Blood Pressure Non-Invasive 73 mmHg mmHg 12/24/2023 15:00 EDT Temperature (Route Not Specified) 36.39 DegC DegC Heart Rate Monitored 80 bpm bpm Respiratory Rate - Anes 12 br/min br/min 12/24/2023 14:58 EDT Systolic Blood Pressure Non-Invasive 109 mmHg mmHg Diastolic Blood Pressure Non-Invasive 66 mmHg mmHg 12/24/2023 14:55 EDT Temperature (Route Not Specified) 36.36 DegC DegC Heart Rate Monitored 79 bpm bpm Respiratory Rate - Anes 12 br/min br/min Systolic Blood Pressure Non-Invasive 101 mmHg mmHg Diastolic Blood Pressure Non-Invasive 61 mmHg mmHg 12/24/2023 14:54 EDT Systolic Blood Pressure Non-Invasive 101 mmHg mmHg Diastolic Blood Pressure Non-Invasive 63 mmHg mmHg 12/24/2023 14:52 EDT Systolic Blood Pressure Non-Invasive 114 mmHg mmHg Diastolic Blood Pressure Non-Invasive 73 mmHg mmHg 12/24/2023 14:51 EDT Systolic Blood Pressure Non-Invasive 116 mmHg mmHg Diastolic Blood Pressure Non-Invasive 85 mmHg mmHg 12/24/2023 14:50 EDT Temperature (Route Not Specified) 36.31 DegC DegC Heart Rate Monitored 76 bpm bpm Respiratory Rate - Anes 12 br/min br/min 12/24/2023 14:49 EDT Systolic Blood Pressure Non-Invasive 114 mmHg mmHg Diastolic Blood Pressure Non-Invasive 82 mmHg mmHg 12/24/2023 14:46 EDT Systolic Blood Pressure Non-Invasive 102 mmHg mmHg Diastolic Blood Pressure Non-Invasive 68 mmHg mmHg 12/24/2023 14:45 EDT Temperature (Route Not Specified) 36.27 DegC DegC Heart Rate Monitored 79 bpm bpm Respiratory Rate - Anes 12 br/min br/min 12/24/2023 14:44 EDT Systolic Blood Pressure Non-Invasive 104 mmHg mmHg Diastolic Blood Pressure Non-Invasive 69 mmHg mmHg 12/24/2023 14:40 EDT Temperature (Route Not Specified) 36.23 DegC DegC Heart Rate Monitored 80 bpm bpm Respiratory Rate - Anes 12 br/min br/min Systolic Blood Pressure Non-Invasive 115 mmHg mmHg Diastolic Blood Pressure Non-Invasive 83 mmHg mmHg 12/24/2023 14:37 EDT Systolic Blood Pressure Non-Invasive 107 mmHg mmHg Diastolic Blood Pressure Non-Invasive 68 mmHg mmHg 12/24/2023 14:35 EDT Temperature (Route Not Specified) 36.12 DegC DegC Heart Rate Monitored 84 bpm bpm Respiratory Rate - Anes 12 br/min br/min 12/24/2023 14:34 EDT Systolic Blood Pressure Non-Invasive 112 mmHg mmHg Diastolic Blood Pressure Non-Invasive 74 mmHg mmHg 12/24/2023 14:31 EDT Systolic Blood Pressure Non-Invasive 121 mmHg mmHg Diastolic Blood Pressure Non-Invasive 76 mmHg mmHg 12/24/2023 14:30 EDT Temperature (Route Not Specified) 36.06 DegC DegC Heart Rate Monitored 82 bpm bpm Respiratory Rate - Anes 12 br/min br/min 12/24/2023 14:27 EDT Systolic Blood Pressure Non-Invasive 113 mmHg mmHg Diastolic Blood Pressure Non-Invasive 81 mmHg mmHg 12/24/2023 14:25 EDT Temperature (Route Not Specified) 35.98 DegC DegC Heart Rate Monitored 84 bpm bpm Respiratory Rate - Anes 12 br/min br/min Systolic Blood Pressure Non-Invasive 98 mmHg mmHg Diastolic Blood Pressure Non-Invasive 70 mmHg mmHg 12/24/2023 14:22 EDT Systolic Blood Pressure Non-Invasive 95 mmHg mmHg Diastolic Blood Pressure Non-Invasive 70 mmHg mmHg 12/24/2023 14:20 EDT Temperature (Route Not Specified) 35.89 DegC DegC Heart Rate Monitored 85 bpm bpm Respiratory Rate - Anes 12 br/min br/min 12/24/2023 14:19 EDT Systolic Blood Pressure Non-Invasive 105 mmHg mmHg Diastolic Blood Pressure Non-Invasive 66 mmHg mmHg 12/24/2023 14:16 EDT Systolic Blood Pressure Non-Invasive 115 mmHg mmHg Diastolic Blood Pressure Non-Invasive 75 mmHg mmHg 12/24/2023 14:15 EDT Temperature (Route Not Specified) 35.81 DegC DegC Heart Rate Monitored 82 bpm bpm Respiratory Rate - Anes 12 br/min br/min 12/24/2023 14:13 EDT Systolic Blood Pressure Non-Invasive 91 mmHg mmHg Diastolic Blood Pressure Non-Invasive 70 mmHg mmHg 12/24/2023 14:10 EDT Temperature (Route Not Specified) 35.72 DegC DegC Heart Rate Monitored 85 bpm bpm Respiratory Rate - Anes 12 br/min br/min Systolic Blood Pressure Non-Invasive 92 mmHg mmHg Diastolic Blood Pressure Non-Invasive 60 mmHg mmHg 12/24/2023 14:07 EDT Systolic Blood Pressure Non-Invasive 105 mmHg mmHg Diastolic Blood Pressure Non-Invasive 64 mmHg mmHg 12/24/2023 14:05 EDT Temperature (Route Not Specified) 35.63 DegC DegC Heart Rate Monitored 87 bpm bpm Respiratory Rate - Anes 12 br/min br/min 12/24/2023 14:04 EDT Systolic Blood Pressure Non-Invasive 123 mmHg mmHg Diastolic Blood Pressure Non-Invasive 82 mmHg mmHg 12/24/2023 14:01 EDT Systolic Blood Pressure Non-Invasive 107 mmHg mmHg Diastolic Blood Pressure Non-Invasive 73 mmHg mmHg 12/24/2023 14:00 EDT Temperature (Route Not Specified) 35.57 DegC DegC Heart Rate Monitored 79 bpm bpm Respiratory Rate - Anes 12 br/min br/min 12/24/2023 13:58 EDT Systolic Blood Pressure Non-Invasive 111 mmHg mmHg Diastolic Blood Pressure Non-Invasive 70 mmHg mmHg 12/24/2023 13:55 EDT Temperature (Route Not Specified) 35.5 DegC DegC Heart Rate Monitored 75 bpm bpm Respiratory Rate - Anes 12 br/min br/min Systolic Blood Pressure Non-Invasive 107 mmHg mmHg Diastolic Blood Pressure Non-Invasive 74 mmHg mmHg 12/24/2023 13:52 EDT Systolic Blood Pressure Non-Invasive 100 mmHg mmHg Diastolic Blood Pressure Non-Invasive 69 mmHg mmHg 12/24/2023 13:50 EDT Temperature (Route Not Specified) 35.44 DegC DegC Heart Rate Monitored 80 bpm bpm Respiratory Rate - Anes 12 br/min br/min 12/24/2023 13:49 EDT Systolic Blood Pressure Non-Invasive 98 mmHg mmHg Diastolic Blood Pressure Non-Invasive 69 mmHg mmHg 12/24/2023 13:46 EDT Systolic Blood Pressure Non-Invasive 113 mmHg mmHg Diastolic Blood Pressure Non-Invasive 71 mmHg mmHg 12/24/2023 13:45 EDT Temperature (Route Not Specified) 35.36 DegC DegC Heart Rate Monitored 80 bpm bpm Respiratory Rate - Anes 12 br/min br/min 12/24/2023 13:43 EDT Systolic Blood Pressure Non-Invasive 114 mmHg mmHg Diastolic Blood Pressure Non-Invasive 80 mmHg mmHg 12/24/2023 13:40 EDT Temperature (Route Not Specified) 35.25 DegC DegC Heart Rate Monitored 78 bpm bpm Respiratory Rate - Anes 12 br/min br/min Systolic Blood Pressure Non-Invasive 96 mmHg mmHg Diastolic Blood Pressure Non-Invasive 65 mmHg mmHg 12/24/2023 13:37 EDT Systolic Blood Pressure Non-Invasive 97 mmHg mmHg Diastolic Blood Pressure Non-Invasive 68 mmHg mmHg 12/24/2023 13:35 EDT Temperature (Route Not Specified) 35.15 DegC DegC Heart Rate Monitored 78 bpm bpm Respiratory Rate - Anes 12 br/min br/min 12/24/2023 13:34 EDT Systolic Blood Pressure Non-Invasive 109 mmHg mmHg Diastolic Blood Pressure Non-Invasive 73 mmHg mmHg 12/24/2023 13:30 EDT Temperature (Route Not Specified) 35.02 DegC DegC Heart Rate Monitored 77 bpm bpm Respiratory Rate - Anes 11 br/min br/min Systolic Blood Pressure Non-Invasive 101 mmHg mmHg Diastolic Blood Pressure Non-Invasive 75 mmHg mmHg 12/24/2023 13:28 EDT Systolic Blood Pressure Non-Invasive 92 mmHg mmHg Diastolic Blood Pressure Non-Invasive 64 mmHg mmHg 12/24/2023 13:25 EDT Temperature (Route Not Specified) 34.89 DegC DegC Heart Rate Monitored 67 bpm bpm Respiratory Rate - Anes 11 br/min br/min Systolic Blood Pressure Non-Invasive 99 mmHg mmHg Diastolic Blood Pressure Non-Invasive 64 mmHg mmHg 12/24/2023 13:21 EDT Systolic Blood Pressure Non-Invasive 98 mmHg mmHg Diastolic Blood Pressure Non-Invasive 71 mmHg mmHg 12/24/2023 13:20 EDT Temperature (Route Not Specified) 34.78 DegC DegC Heart Rate Monitored 66 bpm bpm Respiratory Rate - Anes 11 br/min br/min 12/24/2023 13:19 EDT Systolic Blood Pressure Non-Invasive 94 mmHg mmHg Diastolic Blood Pressure Non-Invasive 61 mmHg mmHg 12/24/2023 13:16 EDT Systolic Blood Pressure Non-Invasive 103 mmHg mmHg Diastolic Blood Pressure Non-Invasive 64 mmHg mmHg 12/24/2023 13:15 EDT Temperature (Route Not Specified) 34.68 DegC DegC Heart Rate Monitored 87 bpm bpm Respiratory Rate - Anes 11 br/min br/min 12/24/2023 13:13 EDT Systolic Blood Pressure Non-Invasive 92 mmHg mmHg Diastolic Blood Pressure Non-Invasive 56 mmHg mmHg 12/24/2023 13:10 EDT Temperature (Route Not Specified) 34.55 DegC DegC Heart Rate Monitored 69 bpm bpm Respiratory Rate - Anes 11 br/min br/min Systolic Blood Pressure Non-Invasive 97 mmHg mmHg Diastolic Blood Pressure Non-Invasive 65 mmHg mmHg 12/24/2023 13:07 EDT Systolic Blood Pressure Non-Invasive 105 mmHg mmHg Diastolic Blood Pressure Non-Invasive 70 mmHg mmHg 12/24/2023 13:05 EDT Temperature (Route Not Specified) 34.45 DegC DegC Heart Rate Monitored 68 bpm bpm Respiratory Rate - Anes 11 br/min br/min 12/24/2023 13:04 EDT Systolic Blood Pressure Non-Invasive 118 mmHg mmHg Diastolic Blood Pressure Non-Invasive 72 mmHg mmHg 12/24/2023 13:01 EDT Systolic Blood Pressure Non-Invasive 119 mmHg mmHg Diastolic Blood Pressure Non-Invasive 79 mmHg mmHg 12/24/2023 13:00 EDT Temperature (Route Not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 laminectomy with bilateral foraminotomies Insertion of aylin through fracture ([id number]). Comments: 11/27/2023 12:15 GLORIA - Anju Benedict RN AYLIN HAS SINCE BEEN REMOVED 07/06/2020 8:15 EDGAR Hamzah Jaime RN Right Leg Cholecystectomy ([id number]). Eye ([id number]). Comments: 07/03/2020 9:40 Loly Tam RN BILATERAL TO CORRECT LAZY EYE Injection ([id number]). Comments: 07/03/2020 9:41 Loly Tam RN PAIN MANAGEMENT ESWL (extracorporeal shockwave lithotripsy) of ureteric calculus ([id number]). Colonoscopy ([id number]). EGD (esophagogastroduodenoscopy) gastric outlet reduction ([id number]). Hernia repair ([id number]). Comments: 07/06/2020 8:17 Hamzah Kinney RN 2019 Extraction of wisdom tooth ([id number]). Tooth extraction ([id number]). Social History: Social & Psychosocial Habits Alcohol 4Risk Assessment: Low Risk 12/21/2023 Use: Current Frequency: 1-2 times per year Substance Abuse 4Risk Assessment: Denies Substance Abuse 12/21/2023 Use: Current Type: MEDICAL MARIJUANA, Marijuana Frequency: 1-2 times per week Tobacco 12/21/2023 Tobacco Use: 10 or more cigarettes (1/ Type: Cigarettes Tobacco use per day: 10 Started at age: 14 Years Ready to change: Yes Smoking Cessation Information Instructed to not smoke d 12/21/2023 Tobacco Use: STATES CHEWS 1-2 TIMES A MONTH Type: Oral (Snuff, Chew) Home/Environment 12/21/2023 Domestic Concerns Denies Nutrition/Health 12/21/2023 Type of diet: Regular Appetite Excellent Physical Examination Vital Signs 12/24/2023 6:42 EDT Temperature Oral 36.7 DegC Peripheral Pulse Rate 76 bpm Respiratory Rate 20 br/min Systolic Blood Pressure Non-Invasive 109 mmHg Diastolic Blood Pressure Non-Invasive 79 mmHg Blood Pressure Method Automatic Blood Pressure Location Right arm Blood Pressure Cuff Size Medium Reason For Taking VItal Signs Routine 12/24/2023 3:59 EDT Temperature Oral 36.6 DegC Peripheral Pulse Rate 65 bpm Respiratory Rate 20 br/min Systolic Blood Pressure Non-Invasive 106 mmHg Diastolic Blood Pressure Non-Invasive 49 mmHg Blood Pressure Method Automatic Blood Pressure Location Right arm Reason For Taking VItal Signs Routine 12/23/2023 23:19 EDT Temperature Oral 37.0 DegC Apical Heart Rate 83 bpm Respiratory Rate 18 br/min Systolic Blood Pressure Non-Invasive 126 mmHg Diastolic Blood Pressure Non-Invasive 84 mmHg Reason For Taking VItal Signs Routine 12/23/2023 18:55 EDT Temperature Oral 36.6 DegC Peripheral Pulse Rate 72 bpm Respiratory Rate 18 br/min Systolic Blood Pressure Non-Invasive 135 mmHg Diastolic Blood Pressure Non-Invasive 92 mmHg HI Blood Pressure Method Automatic Blood Pressure Location Right arm Blood Pressure Cuff Size Medium Reason For Taking VItal Signs Routine 12/23/2023 14:35 EDT Temperature Oral 37.1 DegC Peripheral Pulse Rate 85 bpm Respiratory Rate 20 br/min Systolic Blood Pressure Non-Invasive 122 mmHg Diastolic Blood Pressure Non-Invasive 78 mmHg Mean Arterial Pressure (NBP) 92 mmHg Blood Pressure Method Automatic Blood Pressure Location Right arm Blood Pressure Cuff Size Medium Reason For Taking VItal Signs Routine 12/23/2023 10:45 EDT Temperature Oral 36.6 DegC Peripheral Pulse Rate 86 bpm Respiratory Rate 20 br/min Systolic Blood Pressure Non-Invasive 100 mmHg Diastolic Blood Pressure Non-Invasive 85 mmHg Blood Pressure Method Automatic Blood Pressure Location Right arm Blood Pressure Cuff Size Medium Reason For Taking VItal Signs Routine 12/23/2023 6:59 EDT Temperature Oral 36.5 DegC Peripheral Pulse Rate 64 bpm Respiratory Rate 18 br/min Systolic Blood Pressure Non-Invasive 100 mmHg Diastolic Blood Pressure Non-Invasive 63 mmHg 12/23/2023 2:57 EDT Temperature Oral 36.6 DegC Peripheral Pulse Rate 72 bpm Systolic Blood Pressure Non-Invasive 103 mmHg Diastolic Blood Pressure Non-Invasive 69 mmHg Blood Pressure Method Automatic Blood Pressure Location Right arm Reason For Taking VItal Signs Routine 12/23/2023 0:16 EDT Reason For Taking VItal Signs Routine Vital Signs (last 24 hrs) Last Charted Temp Oral36.7 DegC (DEC 23 06:42) Heart Rate [id number] bpm (DEC 22 23:19) KMC817 mmHg (DEC 23 06:42) DBP79 mmHg (DEC 23 06:42) Pain assessment: Pain Assessment 12/24/2023 9:25 EDT Pain Scale Assessment FACES Primary Pain Location Lower back Primary Pain Intensity 4 12/24/2023 8:45 EDT Primary Pain Location Lower back Primary Pain Intensity 7 Primary Pain Pharma Intervention Medication Pain Scale Type 0-10 Pain scale 12/24/2023 7:25 EDT Primary Pain Location Lower back Primary Pain Intensity 5 Pain Scale Type 0-10 Pain scale 12/24/2023 4:10 EDT Primary Pain Location Lower back Primary Pain Intensity 7 Primary Pain Pharma Intervention Medication Pain Scale Type 0-10 Pain scale 12/24/2023 2:18 EDT Primary Pain Nonverbal Response Appears restful Pain Scale Type Behavioral pain scale 12/23/2023 21:09 EDT Primary Pain Location Lower back Primary Pain Intensity 7 Primary Pain Nonverbal Response Nods Yes Pain Scale Type 0-10 Pain scale 12/23/2023 15:24 EDT Additional Pain Sites Yes 12/23/2023 13:52 EDT Pain Scale Assessment FACES Primary Pain Location Lower back Primary Pain Intensity 0 12/23/2023 12:52 EDT Primary Pain Location Lower back Primary Pain Intensity 8 Primary Pain Pharma Intervention Medication Primary Pain Non-Pharma Intervention Relaxation techniques, Rest Primary Pain Aggravating Factors Movement, Palpation Primary Pain Alleviating Factors Medication, Repositioning Pain Scale Type 0-10 Pain scale 12/23/2023 7:26 EDT Pain Scale Assessment FACES Primary Pain Location Lower back Primary Pain Intensity 3 Primary Pain Nonverbal Response Appears restful Pain Scale Type 0-10 Pain scale 12/23/2023 6:26 EDT Primary Pain Location Lower back Primary Pain Intensity 5 Primary Pain Pharma Intervention Medication Primary Pain Non-Pharma Intervention Relaxation techniques, Deep breathing Primary Pain Aggravating Factors Movement, Palpation Primary Pain Alleviating Factors Medication, Repositioning Pain Scale Type 0-10 Pain scale 12/23/2023 3:48 EDT Primary Pain Location Lower back Primary Pain Intensity 8 Primary Pain Pharma Intervention Medication Primary Pain Non-Pharma Intervention Relaxation techniques, Rest Primary Pain Alleviating Factors Medication Pain Scale Type 0-10 Pain scale 12/23/2023 1:42 EDT Primary Pain Location Lower back Primary Pain Intensity 8 Primary Pain Pharma Intervention Other: cannot give prn due to timeframe. Notified inspector outside steam distribution to notify physician for additional orders Primary Pain Nonverbal Response Nods Yes Pain Scale Type 0-10 Pain scale 12/23/2023 0:42 EDT Pain Scale Assessment PAINAD Primary Pain Location Lower back Primary Pain Intensity 0 . General: Alert and oriented, No acute distress. Airway: Mallampati classification: II (soft palate, fauces, uvula visible). Dentition Evaluation: Dentures, lower, Dentures, upper. Respiratory: Lungs are clear to auscultation. Cardiovascular: Normal rate. Heart Sounds: Normal. Review / Management Results review: Labs (Last four charted values) WBC 7.0(DEC 22) Hgb 13.6(DEC 22) Hct 40.2(DEC 22) Plt 287(DEC 22)275(DEC 22) Na 136(DEC 22) K 4.3(DEC 22) CO2 30(DEC 22) Cl 103(DEC 22) Cr 0.99(DEC 22) BUN 12.0(DEC 22) Glucose 106(DEC 22) Ca 9.1(DEC 22) PT 11.4(DEC 22) INR 1.0(DEC 22) PTT 31.8(DEC 22) , Lab results 12/24/2023 9:25 EDT Pain Scale Assessment FACES Primary Pain Location Lower back Primary Pain Intensity 4 Reason for PRN medication Pain management PRN medication effectiveness Yes PRN Medication Effectiveness Evaluation PRN Medication Effectiveness Evaluation 12/24/2023 9:09 EDT Able To Drink Order Detail Yes Able To Sign Consents Order Detail Yes Code Status Order Detail Full code IV Order Detail Yes Dialysis Schedule Order Detail N/A Has Diabetes Order Detail Yes Isolation Precautions Order Detail None Nurse Collect Order Detail 0 Oxygen Order Detail No Order Detail N/A Prior Valve Replacement Order Detail No Transport Mode Order Detail MTT with Monitor Motion Picture Director Details Form Motion Picture Director Details Form 12/24/2023 9:08 EDT Mechanical VTE Prophylaxis Education Not Done: Task Duplication (Not Done) Positioning Repositions self Sequential Compression Device Not Done: Task Duplication (Not Done) Nurse Safety Checks q2hrs Performed 3am-7am Standard Safety ID band on, Allergy Band on, Call device within reach, Bed in low position, Wheels locked, Upper/Half-Length side-rails up, Phone within reach, personal items within reach, Safety level maintained Demonstrates Correct Call Light Use Yes RN Coordination of Care 3am-7am Sequential Compression Device Form Not Done (Not Done) 12/24/2023 9:02 EDT CHG Preoperative Wash/Wipe Day of procedure Bed Bath Two assist Hair Care Two assist Oral Care Setup Skin Care Done Skin Care Product Applied Bath cloths, Shampoo cap, CHG bath Frieda Care Independent 12/24/2023 9:00 EDT Worker's Comp Patient No (Unauth) PT Initiate/Continue Treatment Yes (Unauth) gabapentin Not Done: Patient NPO (Not Done) Physical Therapy Daily Notes Form Physical Therapy Daily Notes Form (Unauth) Physical Therapy Progress Note Physical Therapy Daily Notes (Unauth) 12/24/2023 8:59 EDT Discharge To, Anticipated Home with family care Anticipated Discharge Date 12/26/2023 Positioning Repositions self Nurse Safety Checks q2hrs Performed 3am-7am Standard Safety ID band on, Allergy Band on, Call device within reach, Bed in low position, Wheels locked, Upper/Half-Length side-rails up, Phone within reach, personal items within reach, Safety level maintained Demonstrates Correct Call Light Use Yes RN Coordination of Care 3am-7am Transition Planning Note Transition Planning Ongoing Assessment 12/24/2023 8:45 EDT Primary Pain Location Lower back Primary Pain Intensity 7 Primary Pain Pharma Intervention Medication Pain Scale Type 0-10 Pain scale acetaminophen-oxycodone 2 tab(s) tab(s) 12/24/2023 8:00 EDT metFORMIN Not Done: Patient NPO (Not Done) 12/24/2023 7:29 EDT hydrochlorothiazide 25 mg mg 12/24/2023 7:25 EDT Blood Glucose, Capillary 109 mg/dL Blood Glucose Testing Reason Routine Primary Pain Location Lower back Primary Pain Intensity 5 Pain Scale Type 0-10 Pain scale Nail Bed Color Fleming Capillary Refill < 2 seconds Heart Sounds ICU S1S2 Heart Rhythm Regular Murmur Auscultated No Dorsalis Pedis Pulse, Left 2+ Normal Dorsalis Pedis Pulse, Right 2+ Normal Radial Pulse, Left 2+ Normal Radial Pulse, Right 2+ Normal Respirations Unlabored Respiratory Pattern Regular Breath Sounds Auscultated Anterior only All Lobes Breath Sounds Clear Cough None Tracheal Position Midline Abdomen Description Soft, Rounded Abdomen Palpation Tender Abdomen Tender LLQ Passing Flatus Yes Bowel Movement Last Date 12/21/2023 Bowel Continence No bowel movement Swallowing Disorder None Bowel Sounds All Quadrants Present Urinary Elimination Voiding, no difficulties Facial Movement Makes facial grimaces, Symmetric resting/crying Skin Symptoms Bruising All Extremity Description Normal for ethnicity Skin Temperature Warm Temperature All Extremities Warm Skin Description Normal for ethnicity Skin Integrity Not intact Skin Turgor Elastic Mucous Membrane Color Fleming Mucous Membrane Description Moist Sensory Perception Bassem Slightly limited Moisture Bassem Rarely moist Activity Bassem Walks occasionally Mobility Bassem Slightly limited Nutrition Bassem Probably inadequate Friction and Shear Bassem No apparent problem Bassem Score 18 Hospital Acquired Pressure Injury Risk Low risk (score 15-18) Back Lower, Midline Skin Abnormality Type: Surgical incision Incision, Wound Dressing/Activity: Open to air Wound Edge: Approximated, Glued Wound Exudate Amount: None Incision, Wound Surrounding Tissue: Normal Upper arm Left 12/22/2023 20 gauge Peripheral IV Activity: Assessed Peripheral IV Dressing Condition: Clean, Dry, Intact Peripheral IV Dressing Activity: Transparent dressing Peripheral IV Line Status/Patency: Continuous infusion Peripheral IV Line Care: Secured with tape Peripheral IV Site Condition: No complications Peripheral IV Equipment: IV Pump Neurological Language Able to speak clearly, Follows simple commands Neurological Symptoms Patient denies Gait Unable to assess Extremity Movement Equal Swallowing Difficulty None Characteristics of Communication Appropriate Characteristics of Speech Clear Facial Symmetry Symmetric Level of Consciousness Alert Aspiration Risk None Eye Opening Response Diane Spontaneously Best Motor Response Diane Obeys simple commands Best Verbal Response Brandon Oriented Brandon Coma Score 15 MARIBELL Yes Left Pupil Description Regular Right Pupil Description Regular Left Pupil Reaction Sluggish Right Pupil Reaction Sluggish Pupil Size, Left 3 mm Pupil Size, Right 3 mm Strength All Extremities Moderate Left Upper Extremity Sensation Intact Right Upper Extremity Sensation Intact Left Lower Extremity Sensation Intact Right Lower Extremity Sensation Intact CN V Facial Sensation Light touch equal bilaterally CN VII Facial Expression and Symmetry Facial movement symmetrical CN VIII Hearing Unable to assess CN IX, X Swallowing, Gag Reflex Swallowing present, Gag reflex present Patel Screen Daily History of Fall in Last 3 Months Patel No Presence of Secondary Diagnosis Patel Yes Use of Ambulatory Aid Patel None, bedrest, wheelchair, nurse IV/PRN Adapter Fall Risk Patel Yes Gait Weak or Impaired Fall Risk Patel Normal, bedrest, immobile Mental Status Fall Risk Patel Oriented to own ability Patel Fall Risk Score 35 Violence Risk Confused No Violence Risk Irritable No Violence Risk Boisterous No Violence Risk Verbal Threats No Violence Risk Physical Threats No Violence Risk Attacking Objects No Violence Risk Predictor Score 0 Violence Risk Intervention None Violence Risk Current Interventions None Affect/Behavior Appropriate, Cooperative Orientation Oriented x 4 Orientation Assessment Oriented x 4 Memory Recall Ability Current season Positioning Repositions self Activity Status ADL Awake NPO Status Maintained Eating Difficulties Unable to obtain 12/24/2023 6:59 EDT Sodium Chloride 0.9% 400 mL mL 12/24/2023 6:42 EDT Temperature Oral 36.7 DegC Peripheral Pulse Rate 76 bpm Respiratory Rate 20 br/min Systolic Blood Pressure Non-Invasive 109 mmHg Diastolic Blood Pressure Non-Invasive 79 mmHg Blood Pressure Method Automatic Blood Pressure Location Right arm Blood Pressure Cuff Size Medium Reason For Taking VItal Signs Routine Oxygen Therapy Room air Oxygen Saturation 93 % Individuals Taught Patient Learning Readiness Willing to learn Barriers to Learning None evident Teaching Method Explanation Preferred Spoken Language Faroese Preferred Written Language Faroese Disease Process General Education Signs/Symptoms to report Environment/Rights Education When to call health care provider Equipment Education Lines/Tubes/Drains, Other: Purpose of CHG wipes. Diagnostic Procedures Education Preprocedure/surgical instructions Patient Care Education Activity limitations/expectations, Pain management strategies, Plan of care,Turn/Cough/Deep breathing Discharge Planning Education Nutrition/Diet Teaching Evaluation Needs reinforcement Positioning Repositions self Activity Status ADL Awake, Lights dimmed, Resting Nurse Safety Checks q2hrs Performed 3am-7am Standard Safety ID band on, Call device within reach, Safety level maintained High Risk Safety Room located near nursing station, Door open, Room check performed Demonstrates Correct Call Light Use Yes RN Coordination of Care 3am-7am 12/24/2023 5:34 EDT Mechanical VTE Prophylaxis Education Not Done: Task Duplication (Not Done) Sequential Compression Device Not Done: Task Duplication (Not Done) Sequential Compression Device Form Not Done (Not Done) 12/24/2023 5:33 EDT Reason for PRN medication Not Done: Not Appropriate at this Time (Not Done) Mechanical VTE Prophylaxis Education Not Done: Not Appropriate at this Time (Not Done) Sequential Compression Device Not Done: Not Appropriate at this Time (Not Done) PRN Medication Effectiveness Evaluation Not Done (Not Done) Sequential Compression Device Form Not Done (Not Done) 12/24/2023 4:58 EDT CSumdominguez OSORIO 12/24/2023 4:10 EDT Primary Pain Location Lower back Primary Pain Intensity 7 Primary Pain Pharma Intervention Medication Pain Scale Type 0-10 Pain scale Positioning Repositions self Nurse Safety Checks q2hrs Performed 3am-7am Standard Safety ID band on, Allergy Band on, Call device within reach, Bed in low position, Wheels locked, Upper/Half-Length side-rails up, Phone within reach, personal items within reach, Safety level maintained High Risk Safety Room check performed Demonstrates Correct Call Light Use Yes RN Coordination of Care 3am-7am acetaminophen-oxycodone 2 tab(s) tab(s) omeprazole 40 mg mg Sodium Chloride 0.9% Begin Bag 1,000 mL mL 12/24/2023 3:59 EDT Temperature Oral 36.6 DegC Peripheral Pulse Rate 65 bpm Respiratory Rate 20 br/min Systolic Blood Pressure Non-Invasive 106 mmHg Diastolic Blood Pressure Non-Invasive 49 mmHg Blood Pressure Method Automatic Blood Pressure Location Right arm Reason For Taking VItal Signs Routine Nail Bed Color Fleming Capillary Refill < 2 seconds Heart Sounds ICU S1S2 Heart Rhythm Regular Murmur Auscultated No Respirations Unlabored Respiratory Pattern Regular Breath Sounds Auscultated Anterior only All Lobes Breath Sounds Clear Cough None Oxygen Therapy Room air Oxygen Saturation 91 % LOW Tracheal Position Midline Urinary Elimination Voiding, no difficulties Facial Movement Makes facial grimaces, Symmetric resting/crying All Extremity Description Normal for ethnicity Temperature All Extremities Warm Back Lower, Midline Skin Abnormality Type: Surgical incision Incision, Wound Dressing/Activity: Open to air Wound Edge: Approximated Wound Exudate Amount: None Incision, Wound Surrounding Tissue: Normal Continuous IV Infusions Normal saline at 50 Upper arm Left 12/22/2023 20 gauge Peripheral IV Activity: Assessed Peripheral IV Dressing Condition: Clean, Dry, Intact Peripheral IV Dressing Activity: Transparent dressing Peripheral IV Line Status/Patency: Continuous infusion Peripheral IV Line Care: Secured with tape Peripheral IV Site Condition: No complications Peripheral IV Equipment: IV Pump Neurological Language Able to speak clearly, Follows simple commands Neurological Symptoms Patient denies Gait Unable to assess Extremity Movement Equal Swallowing Difficulty None Characteristics of Communication Appropriate Characteristics of Speech Clear Facial Symmetry Symmetric Level of Consciousness Alert Aspiration Risk None Eye Opening Response Brandon Spontaneously Best Motor Response Diane Obeys simple commands Best Verbal Response Brandon Oriented Diane Coma Score 15 MARIBELL Yes Left Pupil Description Regular Right Pupil Description Regular Left Pupil Reaction Sluggish Right Pupil Reaction Sluggish Pupil Size, Left 3 mm Pupil Size, Right 3 mm Strength All Extremities Moderate Left Upper Extremity Sensation Intact Right Upper Extremity Sensation Intact Left Lower Extremity Sensation Intact Right Lower Extremity Sensation Intact CN V Facial Sensation Light touch equal bilaterally CN VII Facial Expression and Symmetry Facial movement symmetrical CN VIII Hearing Unable to assess CN IX, X Swallowing, Gag Reflex Swallowing present, Gag reflex present Violence Risk Confused No Violence Risk Irritable No Violence Risk Boisterous No Violence Risk Verbal Threats No Violence Risk Physical Threats No Violence Risk Attacking Objects No Violence Risk Predictor Score 0 Violence Risk Intervention None Violence Risk Current Interventions None Affect/Behavior Appropriate, Calm, Cooperative Orientation Oriented x 4 Orientation Assessment Oriented x 4 Memory Recall Ability Current season 12/24/2023 3:55 EDT Positioning Repositions self Activity Status ADL Awake Standard Safety ID band on, Allergy Band on, Call device within reach, Bed in low position, Wheels locked, Upper/Half-Length side-rails up High Risk Safety Room check performed Demonstrates Correct Call Light Use Yes 12/24/2023 2:18 EDT Primary Pain Nonverbal Response Appears restful Pain Scale Type Behavioral pain scale Oxygen Therapy Room air Positioning Repositioned right side, Repositions self Activity Status ADL Sleeping quietly with easy respirations, Sleeps intermittently Standard Safety Safety level maintained High Risk Safety Room check performed Demonstrates Correct Call Light Use Yes 12/24/2023 0:18 EDT Reason for PRN medication Not Done: Task Duplication (Not Done) Individuals Taught Patient Learning Readiness Willing to learn Barriers to Learning None evident Teaching Method Explanation Mechanical VTE Prophylaxis Education Purpose of Mechanical VTE Prophylaxis Teaching Evaluation Verbalizes/Nonverbally indicates understanding Sequential Compression Device bilateral knee high applied/on Able To Drink Order Detail Not Done: Task Duplication (Not Done) Able To Sign Consents Order Detail Not Done: Task Duplication (Not Done) Code Status Order Detail Not Done: Task Duplication (Not Done) IV Order Detail Not Done: Task Duplication (Not Done) Dialysis Schedule Order Detail Not Done: Task Duplication (Not Done) Has Diabetes Order Detail Not Done: Task Duplication (Not Done) Isolation Precautions Order Detail Not Done: Task Duplication (Not Done) Nurse Collect Order Detail Not Done: Task Duplication (Not Done) Oxygen Order Detail Not Done: Task Duplication (Not Done) Order Detail Not Done: Task Duplication (Not Done) Prior Valve Replacement Order Detail Not Done: Task Duplication (Not Done) Transport Mode Order Detail Not Done: Task Duplication (Not Done) Motion Picture Director Details Form Not Done (Not Done) PRN Medication Effectiveness Evaluation Not Done (Not Done) Sequential Compression Device Form Sequential Compression Device Form 12/24/2023 0:14 EDT Nail Bed Color Fleming Capillary Refill < 2 seconds Oxygen Therapy Room air Urinary Elimination Voiding, no difficulties Urine Color Yellow Urine Description Medium amount Skin Symptoms Bruising All Extremity Description Normal for ethnicity Skin Temperature Warm Temperature All Extremities Warm Skin Description Normal for ethnicity Skin Integrity Not intact Skin Turgor Elastic Back Lower, Midline Skin Abnormality Type: Surgical incision Incision, Wound Dressing/Activity: Open to air Wound Edge: Approximated, Glued Incision, Wound Surrounding Tissue: Normal Upper arm Left 12/22/2023 20 gauge Peripheral IV Activity: Assessed Peripheral IV Dressing Condition: Clean, Dry, Intact Peripheral IV Dressing Activity: Transparent dressing Peripheral IV Line Status/Patency: Continuous infusion Peripheral IV Line Care: Secured with tape Peripheral IV Site Condition: No complications Peripheral IV Equipment: IV Pump Neurological Symptoms Patient denies Level of Consciousness Alert Affect/Behavior Calm, Cooperative Orientation Oriented x 4 CHG Preoperative Wash/Wipe Night before procedure Positioning Repositioned left side, Repositions self Activity Status ADL Sleeping quietly with easy respirations, Sleeps intermittently Nurse Safety Checks q2hrs Performed 11pm-3am Standard Safety ID band on, Allergy Band on, Call device within reach, Bed in low position, Wheels locked, Upper/Half-Length side-rails up, Phone within reach, personal items within reach, Safety level maintained, Non-Slip footwear High Risk Safety Room check performed Demonstrates Correct Call Light Use Yes 12/24/2023 0:01 EDT NPO Status Initiated 12/23/2023 23:19 EDT Temperature Oral 37.0 DegC Apical Heart Rate 83 bpm Respiratory Rate 18 br/min Systolic Blood Pressure Non-Invasive 126 mmHg Diastolic Blood Pressure Non-Invasive 84 mmHg Reason For Taking VItal Signs Routine Oxygen Saturation 92 % LOW Activity Status ADL Resting Standard Safety ID band on, Call device within reach, Safety level maintained High Risk Safety Room check performed 12/23/2023 23:00 EDT Oral Intake 0 mL Stool Count 0 EA Urine Voided 275 mL Urine Voided 500 mL 12/23/2023 21:09 EDT Primary Pain Location Lower back Primary Pain Intensity 7 Primary Pain Nonverbal Response Nods Yes Pain Scale Type 0-10 Pain scale acetaminophen-oxycodone 2 tab(s) tab(s) atorvastatin 40 mg mg gabapentin 300 mg mg traZODone 200 mg mg 12/23/2023 20:30 EDT Nail Bed Color Fleming Capillary Refill <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 22) Ca 9.1(DEC 22) PT 11.4(DEC 22) INR 1.0(DEC 22) PTT 31.8(DEC 22) , Lab results 12/24/2023 9:25 EDT Pain Scale Assessment FACES Primary Pain Location Lower back Primary Pain Intensity 4 Reason for PRN medication Pain management PRN medication effectiveness Yes PRN Medication Effectiveness Evaluation PRN Medication Effectiveness Evaluation 12/24/2023 9:09 EDT Able To Drink Order Detail Yes Able To Sign Consents Order Detail Yes Code Status Order Detail Full code IV Order Detail Yes Dialysis Schedule Order Detail N/A Has Diabetes Order Detail Yes Isolation Precautions Order Detail None Nurse Collect Order Detail 0 Oxygen Order Detail No Order Detail N/A Prior Valve Replacement Order Detail No Transport Mode Order Detail MTT with Monitor Motion Picture Director Details Form Motion Picture Director Details Form 12/24/2023 9:08 EDT Mechanical VTE Prophylaxis Education Not Done: Task Duplication (Not Done) Positioning Repositions self Sequential Compression Device Not Done: Task Duplication (Not Done) Nurse Safety Checks q2hrs Performed 3am-7am Standard Safety ID band on, Allergy Band on, Call device within reach, Bed in low position, Wheels locked, Upper/Half-Length side-rails up, Phone within reach, personal items within reach, Safety level maintained Demonstrates Correct Call Light Use Yes RN Coordination of Care 3am-7am Sequential Compression Device Form Not Done (Not Done) 12/24/2023 9:02 EDT CHG Preoperative Wash/Wipe Day of procedure Bed Bath Two assist Hair Care Two assist Oral Care Setup Skin Care Done Skin Care Product Applied Bath cloths, Shampoo cap, CHG bath Frieda Care Independent 12/24/2023 9:00 EDT Worker's Comp Patient No (Unauth) PT Initiate/Continue Treatment Yes (Unauth) gabapentin Not Done: Patient NPO (Not Done) Physical Therapy Daily Notes Form Physical Therapy Daily Notes Form (Unauth) Physical Therapy Progress Note Physical Therapy Daily Notes (Unauth) 12/24/2023 8:59 EDT Discharge To, Anticipated Home with family care Anticipated Discharge Date 12/26/2023 Positioning Repositions self Nurse Safety Checks q2hrs Performed 3am-7am Standard Safety ID band on, Allergy Band on, Call device within reach, Bed in low position, Wheels locked, Upper/Half-Length side-rails up, Phone within reach, personal items within reach, Safety level maintained Demonstrates Correct Call Light Use Yes RN Coordination of Care 3am-7am Transition Planning Note Transition Planning Ongoing Assessment 12/24/2023 8:45 EDT Primary Pain Location Lower back Primary Pain Intensity 7 Primary Pain Pharma Intervention Medication Pain Scale Type 0-10 Pain scale acetaminophen-oxycodone 2 tab(s) tab(s) 12/24/2023 8:00 EDT metFORMIN Not Done: Patient NPO (Not Done) 12/24/2023 7:29 EDT hydrochlorothiazide 25 mg mg 12/24/2023 7:25 EDT Blood Glucose, Capillary 109 mg/dL Blood Glucose Testing Reason Routine Primary Pain Location Lower back Primary Pain Intensity 5 Pain Scale Type 0-10 Pain scale Nail Bed Color Fleming Capillary Refill < 2 seconds Heart Sounds ICU S1S2 Heart Rhythm Regular Murmur Auscultated No Dorsalis Pedis Pulse, Left 2+ Normal Dorsalis Pedis Pulse, Right 2+ Normal Radial Pulse, Left 2+ Normal Radial Pulse, Right 2+ Normal Respirations Unlabored Respiratory Pattern Regular Breath Sounds Auscultated Anterior only All Lobes Breath Sounds Clear Cough None Tracheal Position Midline Abdomen Description Soft, Rounded Abdomen Palpation Tender Abdomen Tender LLQ Passing Flatus Yes Bowel Movement Last Date 12/21/2023 Bowel Continence No bowel movement Swallowing Disorder None Bowel Sounds All Quadrants Present Urinary Elimination Voiding, no difficulties Facial Movement Makes facial grimaces, Symmetric resting/crying Skin Symptoms Bruising All Extremity Description Normal for ethnicity Skin Temperature Warm Temperature All Extremities Warm Skin Description Normal for ethnicity Skin Integrity Not intact Skin Turgor Elastic Mucous Membrane Color Fleming Mucous Membrane Description Moist Sensory Perception Bassem Slightly limited Moisture Bassem Rarely moist Activity Bassem Walks occasionally Mobility Bassem Slightly limited Nutrition Bassem Probably inadequate Friction and Shear Bassem No apparent problem Bassem Score 18 Hospital Acquired Pressure Injury Risk Low risk (score 15-18) Back Lower, Midline Skin Abnormality Type: Surgical incision Incision, Wound Dressing/Activity: Open to air Wound Edge: Approximated, Glued Wound Exudate Amount: None Incision, Wound Surrounding Tissue: Normal Upper arm Left 12/22/2023 20 gauge Peripheral IV Activity: Assessed Peripheral IV Dressing Condition: Clean, Dry, Intact Peripheral IV Dressing Activity: Transparent dressing Peripheral IV Line Status/Patency: Continuous infusion Peripheral IV Line Care: Secured with tape Peripheral IV Site Condition: No complications Peripheral IV Equipment: IV Pump Neurological Language Able to speak clearly, Follows simple commands Neurological Symptoms Patient denies Gait Unable to assess Extremity Movement Equal Swallowing Difficulty None Characteristics of Communication Appropriate Characteristics of Speech Clear Facial Symmetry Symmetric Level of Consciousness Alert Aspiration Risk None Eye Opening Response Brandon Spontaneously Best Motor Response Brandon Obeys simple commands Best Verbal Response Brandon Oriented Diane Coma Score 15 MARIBELL Yes Left Pupil Description Regular Right Pupil Description Regular Left Pupil Reaction Sluggish Right Pupil Reaction Sluggish Pupil Size, Left 3 mm Pupil Size, Right 3 mm Strength All Extremities Moderate Left Upper Extremity Sensation Intact Right Upper Extremity Sensation Intact Left Lower Extremity Sensation Intact Right Lower Extremity Sensation Intact CN V Facial Sensation Light touch equal bilaterally CN VII Facial Expression and Symmetry Facial movement symmetrical CN VIII Hearing Unable to assess CN IX, X Swallowing, Gag Reflex Swallowing present, Gag reflex present Patel Screen Daily History of Fall in Last 3 Months Patel No Presence of Secondary Diagnosis Patel Yes Use of Ambulatory Aid Patel None, bedrest, wheelchair, nurse IV/PRN Adapter Fall Risk Patel Yes Gait Weak or Impaired Fall Risk Patel Normal, bedrest, immobile Mental Status Fall Risk Patel Oriented to own ability Patel Fall Risk Score 35 Violence Risk Confused No Violence Risk Irritable No Violence Risk Boisterous No Violence Risk Verbal Threats No Violence Risk Physical Threats No Violence Risk Attacking Objects No Violence Risk Predictor Score 0 Violence Risk Intervention None Violence Risk Current Interventions None Affect/Behavior Appropriate, Cooperative Orientation Oriented x 4 Orientation Assessment Oriented x 4 Memory Recall Ability Current season Positioning Repositions self Activity Status ADL Awake NPO Status Maintained Eating Difficulties Unable to obtain 12/24/2023 6:59 EDT Sodium Chloride 0.9% 400 mL mL 12/24/2023 6:42 EDT Temperature Oral 36.7 DegC Peripheral Pulse Rate 76 bpm Respiratory Rate 20 br/min Systolic Blood Pressure Non-Invasive 109 mmHg Diastolic Blood Pressure Non-Invasive 79 mmHg Blood Pressure Method Automatic Blood Pressure Location Right arm Blood Pressure Cuff Size Medium Reason For Taking VItal Signs Routine Oxygen Therapy Room air Oxygen Saturation 93 % Individuals Taught Patient Learning Readiness Willing to learn Barriers to Learning None evident Teaching Method Explanation Preferred Spoken Language Faroese Preferred Written Language Faroese Disease Process General Education Signs/Symptoms to report Environment/Rights Education When to call health care provider Equipment Education Lines/Tubes/Drains, Other: Purpose of CHG wipes. Diagnostic Procedures Education Preprocedure/surgical instructions Patient Care Education Activity limitations/expectations, Pain management strategies, Plan of care,Turn/Cough/Deep breathing Discharge Planning Education Nutrition/Diet Teaching Evaluation Needs reinforcement Positioning Repositions self Activity Status ADL Awake, Lights dimmed, Resting Nurse Safety Checks q2hrs Performed 3am-7am Standard Safety ID band on, Call device within reach, Safety level maintained High Risk Safety Room located near nursing station, Door open, Room check performed Demonstrates Correct Call Light Use Yes RN Coordination of Care 3am-7am 12/24/2023 5:34 EDT Mechanical VTE Prophylaxis Education Not Done: Task Duplication (Not Done) Sequential Compression Device Not Done: Task Duplication (Not Done) Sequential Compression Device Form Not Done (Not Done) 12/24/2023 5:33 EDT Reason for PRN medication Not Done: Not Appropriate at this Time (Not Done) Mechanical VTE Prophylaxis Education Not Done: Not Appropriate at this Time (Not Done) Sequential Compression Device Not Done: Not Appropriate at this Time (Not Done) PRN Medication Effectiveness Evaluation Not Done (Not Done) Sequential Compression Device Form Not Done (Not Done) 12/24/2023 4:58 EDT CSummary CSUMMARY 12/24/2023 4:10 EDT Primary Pain Location Lower back Primary Pain Intensity 7 Primary Pain Pharma Intervention Medication Pain Scale Type 0-10 Pain scale Positioning Repositions self Nurse Safety Checks q2hrs Performed 3am-7am Standard Safety ID band on, Allergy Band on, Call device within reach, Bed in low position, Wheels locked, Upper/Half-Length side-rails up, Phone within reach, personal items within reach, Safety level maintained High Risk Safety Room check performed Demonstrates Correct Call Light Use Yes RN Coordination of Care 3am-7am acetaminophen-oxycodone 2 tab(s) tab(s) omeprazole 40 mg mg Sodium Chloride 0.9% Begin Bag 1,000 mL mL 12/24/2023 3:59 EDT Temperature Oral 36.6 DegC Peripheral Pulse Rate 65 bpm Respiratory Rate 20 br/min Systolic Blood Pressure Non-Invasive 106 mmHg Diastolic Blood Pressure Non-Invasive 49 mmHg <LLOW Blood Pressure Method Automatic Blood Pressure Location Right arm Reason For Taking VItal Signs Routine Nail Bed Color Fleming Capillary Refill < 2 seconds Heart Sounds ICU S1S2 Heart Rhythm Regular Murmur Auscultated No Respirations Unlabored Respiratory Pattern Regular Breath Sounds Auscultated Anterior only All Lobes Breath Sounds Clear Cough None Oxygen Therapy Room air Oxygen Saturation 91 % LOW Tracheal Position Midline Urinary Elimination Voiding, no difficulties Facial Movement Makes facial grimaces, Symmetric resting/crying All Extremity Description Normal for ethnicity Temperature All Extremities Warm Back Lower, Midline Skin Abnormality Type: Surgical incision Incision, Wound Dressing/Activity: Open to air Wound Edge: Approximated Wound Exudate Amount: None Incision, Wound Surrounding Tissue: Normal Continuous IV Infusions Normal saline at 50 Upper arm Left 12/22/2023 20 gauge Peripheral IV Activity: Assessed Peripheral IV Dressing Condition: Clean, Dry, Intact Peripheral IV Dressing Activity: Transparent dressing Peripheral IV Line Status/Patency: Continuous infusion Peripheral IV Line Care: Secured with tape Peripheral IV Site Condition: No complications Peripheral IV Equipment: IV Pump Neurological Language Able to speak clearly, Follows simple commands Neurological Symptoms Patient denies Gait Unable to assess Extremity Movement Equal Swallowing Difficulty None Characteristics of Communication Appropriate Characteristics of Speech Clear Facial Symmetry Symmetric Level of Consciousness Alert Aspiration Risk None Eye Opening Response Brandon Spontaneously Best Motor Response Brandon Obeys simple commands Best Verbal Response Diane Oriented Diane Coma Score 15 MARIBELL Yes Left Pupil Description Regular Right Pupil Description Regular Left Pupil Reaction Sluggish Right Pupil Reaction Sluggish Pupil Size, Left 3 mm Pupil Size, Right 3 mm Strength All Extremities Moderate Left Upper Extremity Sensation Intact Right Upper Extremity Sensation Intact Left Lower Extremity Sensation Intact Right Lower Extremity Sensation Intact CN V Facial Sensation Light touch equal bilaterally CN VII Facial Expression and Symmetry Facial movement symmetrical CN VIII Hearing Unable to assess CN IX, X Swallowing, Gag Reflex Swallowing present, Gag reflex present Violence Risk Confused No Violence Risk Irritable No Violence Risk Boisterous No Violence Risk Verbal Threats No Violence Risk Physical Threats No Violence Risk Attacking Objects No Violence Risk Predictor Score 0 Violence Risk Intervention None Violence Risk Current Interventions None Affect/Behavior Appropriate, Calm, Cooperative Orientation Oriented x 4 Orientation Assessment Oriented x 4 Memory Recall Ability Current season 12/24/2023 3:55 EDT Positioning Repositions self Activity Status ADL Awake Standard Safety ID band on, Allergy Band on, Call device within reach, Bed in low position, Wheels locked, Upper/Half-Length side-rails up High Risk Safety Room check performed Demonstrates Correct Call Light Use Yes 12/24/2023 2:18 EDT Primary Pain Nonverbal Response Appears restful Pain Scale Type Behavioral pain scale Oxygen Therapy Room air Positioning Repositioned right side, Repositions self Activity Status ADL Sleeping quietly with easy respirations, Sleeps intermittently Standard Safety Safety level maintained High Risk Safety Room check performed Demonstrates Correct Call Light Use Yes 12/24/2023 0:18 EDT Reason for PRN medication Not Done: Task Duplication (Not Done) Individuals Taught Patient Learning Readiness Willing to learn Barriers to Learning None evident Teaching Method Explanation Mechanical VTE Prophylaxis Education Purpose of Mechanical VTE Prophylaxis Teaching Evaluation Verbalizes/Nonverbally indicates understanding Sequential Compression Device bilateral knee high applied/on Able To Drink Order Detail Not Done: Task Duplication (Not Done) Able To Sign Consents Order Detail Not Done: Task Duplication (Not Done) Code Status Order Detail Not Done: Task Duplication (Not Done) IV Order Detail Not Done: Task Duplication (Not Done) Dialysis Schedule Order Detail Not Done: Task Duplication (Not Done) Has Diabetes Order Detail Not Done: Task Duplication (Not Done) Isolation Precautions Order Detail Not Done: Task Duplication (Not Done) Nurse Collect Order Detail Not Done: Task Duplication (Not Done) Oxygen Order Detail Not Done: Task Duplication (Not Done) Order Detail Not Done: Task Duplication (Not Done) Prior Valve Replacement Order Detail Not Done: Task Duplication (Not Done) Transport Mode Order Detail Not Done: Task Duplication (Not Done) Motion Picture Director Details Form Not Done (Not Done) PRN Medication Effectiveness Evaluation Not Done (Not Done) Sequential Compression Device Form Sequential Compression Device Form 12/24/2023 0:14 EDT Nail Bed Color Fleming Capillary Refill < 2 seconds Oxygen Therapy Room air Urinary Elimination Voiding, no difficulties Urine Color Yellow Urine Description Medium amount Skin Symptoms Bruising All Extremity Description Normal for ethnicity Skin Temperature Warm Temperature All Extremities Warm Skin Description Normal for ethnicity Skin Integrity Not intact Skin Turgor Elastic Back Lower, Midline Skin Abnormality Type: Surgical incision Incision, Wound Dressing/Activity: Open to air Wound Edge: Approximated, Glued Incision, Wound Surrounding Tissue: Normal Upper arm Left 12/22/2023 20 gauge Peripheral IV Activity: Assessed Peripheral IV Dressing Condition: Clean, Dry, Intact Peripheral IV Dressing Activity: Transparent dressing Peripheral IV Line Status/Patency: Continuous infusion Peripheral IV Line Care: Secured with tape Peripheral IV Site Condition: No complications Peripheral IV Equipment: IV Pump Neurological Symptoms Patient denies Level of Consciousness Alert Affect/Behavior Calm, Cooperative Orientation Oriented x 4 CHG Preoperative Wash/Wipe Night before procedure Positioning Repositioned left side, Repositions self Activity Status ADL Sleeping quietly with easy respirations, Sleeps intermittently Nurse Safety Checks q2hrs Performed 11pm-3am Standard Safety ID band on, Allergy Band on, Call device within reach, Bed in low position, Wheels locked, Upper/Half-Length side-rails up, Phone within reach, personal items within reach, Safety level maintained, Non-Slip footwear High Risk Safety Room check performed Demonstrates Correct Call Light Use Yes 12/24/2023 0:01 EDT NPO Status Initiated 12/23/2023 23:19 EDT Temperature Oral 37.0 DegC Apical Heart Rate 83 bpm Respiratory Rate 18 br/min Systolic Blood Pressure Non-Invasive 126 mmHg Diastolic Blood Pressure Non-Invasive 84 mmHg Reason For Taking VItal Signs Routine Oxygen Saturation 92 % LOW Activity Status ADL Resting Standard Safety ID band on, Call device within reach, Safety level maintained High Risk Safety Room check performed 12/23/2023 23:00 EDT Oral Intake 0 mL Stool Count 0 EA Urine Voided 275 mL Urine Voided 500 mL 12/23/2023 21:09 EDT Primary Pain Location Lower back Primary Pain Intensity 7 Primary Pain Nonverbal Response Nods Yes Pain Scale Type 0-10 Pain scale acetaminophen-oxycodone 2 tab(s) tab(s) atorvastatin 40 mg mg gabapentin 300 mg mg traZODone 200 mg mg 12/23/2023 20:30 EDT Nail Bed Color Fleming Capillary Refill < 2 seconds Dorsalis Pedis Pulse, Left 2+ Normal Dorsalis Pedis Pulse, Right 2+ Normal Radial Pulse, Left 2+ Normal Radial Pulse, Right 2+ Normal Respirations Unlabored Respiratory Pattern Regular Breath Sounds Auscultated Anterior and posterior All Lobes Breath Sounds Clear Cough None Tracheal Position Midline Abdomen Description Rounded Abdomen Palpation Non-Tender, Soft Passing Flatus Yes Bowel Movement Last Date 12/21/2023 Bowel Continence Continent Swallowing Disorder None Bowel Sounds All Quadrants Present Facial Movement Makes facial grimaces, Symmetric resting/crying Skin Symptoms Bruising All Extremity Description Normal for ethnicity Skin Temperature Warm Temperature All Extremities Warm Skin Description Normal for ethnicity Skin Integrity Not intact Skin Turgor Non-Elastic Mucous Membrane Color Fleming Mucous Membrane Description Moist Back Lower, Midline Skin Abnormality Type: Surgical incision Incision, Wound Dressing/Activity: Open to air Wound Edge: Approximated with anna Incision, Wound Surrounding Tissue: Normal Wound Associated Pain: With activity, mobilization Neurological Language Able to speak clearly, Follows simple commands Neurological Symptoms Patient denies Gait Steady Extremity Movement Equal Swallowing Difficulty None Characteristics of Communication Appropriate Characteristics of Speech Clear Facial Symmetry Symmetric Level of Consciousness Alert Aspiration Risk None Eye Opening Response Diane Spontaneously Best Motor Response Diane Obeys simple commands Best Verbal Response Diane Oriented Diane Coma Score 15 MARIBELL Yes Left Pupil Description Regular, Round Right Pupil Description Regular, Round Left Pupil Reaction Brisk Right Pupil Reaction Brisk Pupil Size, Left 3 mm Pupil Size, Right 3 mm Strength All Extremities Moderate Left Upper Extremity Sensation Intact Right Upper Extremity Sensation Intact Left Lower Extremity Sensation Intact Right Lower Extremity Sensation Intact CN V Facial Sensation Light touch equal bilaterally CN VII Facial Expression and Symmetry Facial movement symmetrical CN VIII Hearing Spoken word equally audible left/right CN IX, X Swallowing, Gag Reflex Swallowing present Affect/Behavior Appropriate, Calm, Cooperative Orientation Oriented x 4 Orientation Assessment Oriented x 4 Eating Difficulties None Stool Count 0 EA 12/23/2023 18:55 EDT Temperature Oral 36.6 DegC Peripheral Pulse Rate 72 bpm Respiratory Rate 18 br/min Systolic Blood Pressure Non-Invasive 135 mmHg Diastolic Blood Pressure Non-Invasive 92 mmHg HI Blood Pressure Method Automatic Blood Pressure Location Right arm Blood Pressure Cuff Size Medium Reason For Taking VItal Signs Routine Oxygen Therapy Room air Oxygen Saturation 94 % Urinary Elimination Voiding, no difficulties Urine Color Yellow, Light Urine Description Medium amount 12/23/2023 18:08 EDT Progress Note-Nurse Patient ambulation 12/23/2023 17:34 EDT Individuals Taught Patient Learning Readiness Willing to learn Barriers to Learning None evident Teaching Method Explanation Mechanical VTE Prophylaxis Education Purpose of Mechanical VTE Prophylaxis, Wear device at all times when in bed/chair Teaching Evaluation Verbalizes/Nonverbally indicates understanding Sequential Compression Device bilateral knee high removed/off Reason SCD Removed/Off Patient refused Sequential Compression Device Form Sequential Compression Device Form 12/23/2023 16:41 EDT gabapentin 300 mg mg tiZANidine 4 mg mg 12/23/2023 15:24 EDT Additional Pain Sites Yes Basic Command Following Intact Nail Bed Color Fleming Capillary Refill < 2 seconds Dorsalis Pedis Pulse, Left 2+ Normal Dorsalis Pedis Pulse, Right 2+ Normal Respirations Unlabored Respiratory Pattern Regular Muscle Tone Intact Coordination Intact Strength-LUE Within functional limits Strength-LLE Within functional limits Strength-RUE Within functional limits Strength-RLE Within functional limits Left Knee Flexion Strength 4 Left Knee Extension Strength 4 Left Ankle Dorsiflexion Strength 4 Left Ankle Plantarflexion Strength 4 Right Knee Flexion Strength 4 Right Knee Extension Strength 4 Right Ankle Dorsiflexion Strength 4 Right Ankle Plantarflexion Strength 4 Left Upper Extremity Range of Motion Within functional limits Right Upper Extremity Range of Motion Within functional limits Left Lower Extremity Range of Motion Within functional limits Right Lower Extremity Range of Motion Within functional limits Skin Temperature Warm Skin Description Normal for ethnicity Mucous Membrane Color Fleming Mucous Membrane Description Moist Neurological Language Able to speak clearly, Follows simple commands Neurological Symptoms Headache, Patient denies Gait Steady Extremity Movement Equal Swallowing Difficulty None Characteristics of Communication Appropriate Characteristics of Speech Clear Level of Consciousness Alert PT Other Neurological Information PT Other Neurological Information Aspiration Risk None Eye Opening Response Diane Spontaneously Best Motor Response Brandon Obeys simple commands Best Verbal Response Diane Oriented Diane Coma Score 15 MARIBELL Yes Strength All Extremities Moderate Left Lower Extremity Sensation Intact Right Lower Extremity Sensation Intact Affect/Behavior Appropriate, Calm, Cooperative Orientation Oriented x 4 Number of Stairs-Inside Stairs 0 Number of Stairs-Outside Stairs 0 Location Bed 1st floor Location Laundry Other Location Main Bathroom 1st floor Bed Mobility Supine to Sit Mod I Bed Mobility Sit to Supine Mod I Transfer Sit to Stand Supervised Transfer Stand to Sit Supervised Transfer Bed to/from Chair Supervised Ambulation Distance 2 20 ft Ambulation Level Supervised Ambulation Distance 20 ft Ambulation Quality Ambulation Quality Information Obtained From Patient Precautions to Rehabilitation Treatment Precautions to Rehabilitation Treatment Current History Current History Orientation Assessment Oriented x 4 Past Medical History Past Medical History Falls In Last 6 Months 2- numbness tingling in legs and they gave out. Worker's Comp Patient No PT Education Grid PT Education Grid PT Problem List Ambulation deficits, Balance deficits, Bed mobility deficits, Decreased activity tolerance, Pain limiting function, Strength/Range of motion deficits, Transfer deficits PT Sensation Impaired Turning Over In Bed A Little (3) Sit Down/Stand Up From Chair with Arms A Little (3) Move From Back To Sit On Bedside A Little (3) Moving To And From Bed To Chair A Little (3) Need To Walk In Hospital Room A Little (3) Climbing 3-5 Steps With A Railing A Little (3) PT Therapy Recommended after Discharge Yes (see Discharge Recommendation) PT Frequency Five times per week PT Duration Two weeks PT Intensity Once Daily PT Anticipated Treatments Balance training, Bed mobility training, Caregiver training, Gait training, Neuromuscular reeducation, Safety education, Stair training, Therapeutic exercises, Transfer training PT Anticipated Treatment Comments PT Anticipated Treatment Comments PT Initiate/Continue Treatment Yes PT Plan/Goals Established w Pt/Caregiver Yes PT Patient/Caregiver Goal get back home and active again PT Bed Mobility Goal Independent PT Bed Mobility Goal Time Frame 10 day(s) PT Transfer Goal Mod I PT Transfer Device Goal Front wheeled walker PT Transfer Goal Time Frame 10 day(s) PT Ambulation Goal Mod I PT Ambulation Device Goal Front wheeled walker Gait 1 Distance for Goal 300 PT Ambulation Goal Time Frame 10 day(s) Therapy Pain Location Headache Therapy Pain Location Lower back Therapy Pain Laterality Mid Therapy Pain Laterality Mid Therapy Pain Quality Aching, Pressure Therapy Pain Quality Aching, Pressure Therapy Pain Intensity 5 Therapy Pain Interventions Repositioning, Rest Therapy Pain Interventions Repositioning, Rest Static Sitting Independent Static Standing Supervised Dynamic Standing Supervised PT Balance Notes PT Balance Notes Basic Mobility Raw Score 18 PT Evaluation Charge Moderate complexity Physical Therapy Progress Note Physical Therapy Inpatient Initial Examination 12/23/2023 15:00 EDT Oral Intake 480 mL Urine Count 1 EA Urine Voided 500 mL 12/23/2023 14:59 EDT Sodium Chloride 0.9% 400 mL mL 12/23/2023 14:36 EDT Urine Count 1 EA Urine Voided 600 mL 12/23/2023 14:35 EDT Temperature Oral 37.1 DegC Peripheral Pulse Rate 85 bpm Respiratory Rate 20 br/min Systolic Blood Pressure Non-Invasive 122 mmHg Diastolic Blood Pressure Non-Invasive 78 mmHg Mean Arterial Pressure (NBP) 92 mmHg Blood Pressure Method Automatic Blood Pressure Location Right arm Blood Pressure Cuff Size Medium Reason For Taking VItal Signs Routine Oxygen Therapy Room air Oxygen Saturation 92 % LOW Positioning Repositions self Standard Safety Safety level maintained High Risk Safety Room check performed Demonstrates Correct Call Light Use Yes 12/23/2023 14:23 EDT Primary Readmission Factor Complication from a previous admission Primary Readmission Factor Plan Pt previously admitted for laminectomy and discharged with FWW. Pt readmitted with CSF leak (DA from 's office). Prior Discharge Date 12/11/2023 Days Since Prior Discharge 11 Readmission Risk at Prior Discharge Moderate risk Palliative Care Score at Prior Discharge 1 Palliative Care Consult at Prior Dischar No Prior Discharge Location Home independently 12/23/2023 14:19 EDT Concomitant Disease Process Moderate COPD: GOLD stage 2 (FEV1 <80% of predicted), oxygen Concomitant Disease Process Score 1 Palliative restricted score 0 More Than 1 Admit in 30 Days Same Dx 1 Palliative Total Score 2 (Modified) LACE Length of Stay 4 - 6 days LACE Acute Admission Inpatient LACE ED Visits 2 LACE CoMorbidity Score 5 LACE Score 14 Readmission Risk Screening Note Readmission Risk Screening 12/23/2023 13:52 EDT Pain Scale Assessment FACES Primary Pain Location Lower back Primary Pain Intensity 0 Reason for PRN medication Pain management PRN medication effectiveness Yes PRN Medication Effectiveness Evaluation PRN Medication Effectiveness Evaluation 12/23/2023 13:12 EDT Mechanical VTE Prophylaxis Education Not Done: Not Appropriate at this Time (Not Done) Sequential Compression Device Not Done: Not Appropriate at this Time (Not Done) Sequential Compression Device Form Not Done (Not Done) 12/23/2023 12:52 EDT Primary Pain Location Lower back Primary Pain Intensity 8 Primary Pain Pharma Intervention Medication Primary Pain Non-Pharma Intervention Relaxation techniques, Rest Primary Pain Aggravating Factors Movement, Palpation Primary Pain Alleviating Factors Medication, Repositioning Pain Scale Type 0-10 Pain scale acetaminophen-oxycodone 2 tab(s) tab(s) 12/23/2023 12:45 EDT Neurosurgery Rounding Note Progress Note 12/23/2023 11:47 EDT What Is Your Living Situation Today I have a steady place to live Where You Live, Any Problems With None Past 12 Mo. Worry Food Run Out, No Money Never true Past 12 Mo. Food Bought Ran Out,No Money Never true Past 12 Mo. Lack Reliable Transportation No Past 12 Mo. Utilites Threatened Shut Off No How Often Anyone Physically Hurts You Never How Often Insulted or Talked Down To Never How Often Threatened With Harm Never How Often Screamed Or Cursed At You Never HRSN Screening Tool Safety Score 4 Lives In Apartment, Single level home Living Situation Lives with family Current Home Treatments None Professional Skilled Services None Special Services and Community Resources None Advanced Directives Yes Advance Directive Type [place] Durable Power of [place] Block [employer] [facility] [place] Declaration (Living Will) Discharge To, Anticipated Home with family care Anticipated Discharge Date 12/25/2023 Home Equipment, Anticipated Cane, Walker Needs Assistance with Transportation No Health-Related Screening Tool Health-Related Screening Tool Transition Planning Note Transition Planning Initial Assessment 12/23/2023 10:45 EDT Temperature Oral 36.6 DegC Peripheral Pulse Rate 86 bpm Respiratory Rate 20 br/min Systolic Blood Pressure Non-Invasive 100 mmHg Diastolic Blood Pressure Non-Invasive 85 mmHg Blood Pressure Method Automatic Blood Pressure Location Right arm Blood Pressure Cuff Size Medium Reason For Taking VItal Signs Routine Oxygen Therapy Room air Oxygen Saturation 92 % LOW Positioning Repositioned right side Activity Status ADL Lights dimmed, Resting Nurse Safety Checks q2hrs Performed 7am-3pm Standard Safety ID band on, Call device within reach, Safety level maintained High Risk Safety Room located near nursing station, Door open, Room check performed Demonstrates Correct Call Light Use Yes RN Coordination of Care 7am-3pm 12/23/2023 10:29 EDT Upper arm Left 12/22/2023 20 gauge Peripheral IV Activity: Assessed Peripheral IV Dressing Condition: Clean, Dry, Intact Peripheral IV Dressing Activity: Transparent dressing Peripheral IV Line Status/Patency: Continuous infusion Peripheral IV Site Condition: No complications Peripheral IV Equipment: IV Pump 12/23/2023 10:07 EDT Blood Glucose, Capillary 114 mg/dL HI 12/23/2023 9:07 EDT Mechanical VTE Prophylaxis Education Not Done: Task Duplication (Not Done) Sequential Compression Device Not Done: Task Duplication (Not Done) Able To Drink Order Detail Yes Able To Sign Consents Order Detail Yes Code Status Order Detail Full code IV Order Detail Yes Dialysis Schedule Order Detail N/A Has Diabetes Order Detail Yes Isolation Precautions Order Detail None Nurse Collect Order Detail 0 Oxygen Order Detail No Order Detail N/A Prior Valve Replacement Order Detail No Transport Mode Order Detail Bed Nurse and Monitor Motion Picture Director Details Form Motion Picture Director Details Form Sequential Compression Device Form Not Done (Not Done) 12/23/2023 8:59 EDT Electrocardiogram - EKG - CV Completed (In Progress) 12/23/2023 7:49 EDT gabapentin 300 mg mg hydrochlorothiazide 25 mg mg metFORMIN 500 mg mg Sodium Chloride 0.9% Begin Bag 1,000 mL mL 12/23/2023 7:46 EDT Upper arm Left 12/22/2023 20 gauge Peripheral IV Activity: Assessed Peripheral IV Dressing Condition: Clean, Dry, Intact Peripheral IV Dressing Activity: Transparent dressing Peripheral IV Line Status/Patency: Continuous infusion Peripheral IV Line Care: Secured with tape Peripheral IV Site Condition: No complications Peripheral IV Equipment: IV Pump 12/23/2023 7:26 EDT Pain Scale Assessment FACES Primary Pain Location Lower back Primary Pain Intensity 3 Primary Pain Nonverbal Response Appears restful Pain Scale Type 0-10 Pain scale Reason for PRN medication Pain management PRN medication effectiveness Partial PRN Medication Effectiveness Evaluation PRN Medication Effectiveness Evaluation 12/23/2023 7:00 EDT Oral Intake 500 mL Emesis Count 0 EA Stool Count 0 EA Urine Voided 500 mL Urine Voided 400 mL 12/23/2023 6:59 EDT Sodium Chloride 0.9% 400 mL mL 12/23/2023 6:59 EDT Temperature Oral 36.5 DegC Peripheral Pulse Rate 64 bpm Respiratory Rate 18 br/min Systolic Blood Pressure Non-Invasive 100 mmHg Diastolic Blood Pressure Non-Invasive 63 mmHg Oxygen Therapy Room air Oxygen Saturation 97 % Standard Safety ID band on, Call device within reach High Risk Safety Room check performed 12/23/2023 6:51 EDT WBC 7.0 10^3/mcL RBC 4.48 10^6/mcL LOW Hgb 13.6 G/dL Hct 40.2 % MCV 89.7 fL MCH 30.4 pg MCHC 33.9 G/dL RDW 13.7 % Platelet 275 10^3/mcL Platelet 287 10^3/mcL MPV 8.2 fL Neutrophil % 59.5 % Lymphocyte % 31.1 % Monocyte % 6.7 % Eosinophil % 2.3 % Basophil % 0.4 % Neutrophil, Absolute 4.2 10^3/mcL Lymphocyte, Absolute 2.2 10^3/mcL Monocyte, Absolute 0.5 10^3/mcL Eosinophil, Absolute 0.2 10^3/mcL Basophil, Absolute 0.0 10^3/mcL Heparin dose (APTT) None APTT 31.8 seconds Protime 11.4 seconds PT International Ratio 1.0 ratio NA Fibrinogen 691 mg/dL HI Glucose Level 106 mg/dL Sodium Level 136 mEq/L Potassium Level 4.3 mEq/L Chloride 103 mEq/L CO2 30 mEq/L Electrolyte Balance 3.0 mEq/L LOW BUN 12.0 mg/dL Creatinine Lvl (s) 0.99 mg/dL BUN/Creatinine Ratio 12.1 ratio Calcium Lvl 9.1 mg/dL GFR Non- >60 ml/min/1.73sqm NA GFR >60 ml/min/1.73sqm NA Creatinine Clearance Calc 89.32 mL/min 12/23/2023 6:26 EDT Primary Pain Location Lower back Primary Pain Intensity 5 Primary Pain Pharma Intervention Medication Primary Pain Non-Pharma Intervention Relaxation techniques, Deep breathing Primary Pain Aggravating Factors Movement, Palpation Primary Pain Alleviating Factors Medication, Repositioning Pain Scale Type 0-10 Pain scale acetaminophen-oxycodone 1 tab(s) tab(s) docusate 100 mg mg omeprazole 40 mg mg 12/23/2023 6:25 EDT Respiratory Therapy Progress Note spiriva interchange 12/23/2023 5:06 EDT Mechanical VTE Prophylaxis Education Not Done: Task Duplication (Not Done) Sequential Compression Device Not Done: Task Duplication (Not Done) Sequential Compression Device Form Not Done (Not Done) 12/23/2023 3:50 EDT Upper arm Left 12/22/2023 20 gauge Peripheral IV Activity: Assessed Peripheral IV Dressing Condition: Clean, Dry, Intact Peripheral IV Dressing Activity: Transparent dressing Peripheral IV Line Status/Patency: Continuous infusion Peripheral IV Site Condition: No complications Peripheral IV Equipment: IV Pump 12/23/2023 3:48 EDT Primary Pain Location Lower back Primary Pain Intensity 8 Primary Pain Pharma Intervention Medication Primary Pain Non-Pharma Intervention Relaxation techniques, Rest Primary Pain Alleviating Factors Medication Pain Scale Type 0-10 Pain scale Nail Bed Color Fleming Capillary Refill < 2 seconds Dorsalis Pedis Pulse, Left 2+ Normal Dorsalis Pedis Pulse, Right 2+ Normal Posttibial Pulse, Left 2+ Normal Posttibial Pulse, Right 2+ Normal Radial Pulse, Left 2+ Normal Radial Pulse, Right 2+ Normal Alarms On and Functional No Respirations Unlabored Respiratory Pattern Regular Breath Sounds Auscultated Anterior and posterior All Lobes Breath Sounds Clear, Equal Cough None Tracheal Position Midline Abdomen Description Non-distended, Soft Abdomen Palpation Non-Tender, Soft Passing Flatus Yes Bowel Movement Last Date 12/20/2023 Bowel Continence No bowel movement Swallowing Disorder None Bowel Sounds All Quadrants Present Urinary Elimination Voiding, no difficulties Urine Color Yellow Urine Description Medium amount, Clear Facial Movement Symmetric resting/crying All Extremity Description Fleming Skin Temperature Warm Temperature All Extremities Warm Skin Description Fleming, Dry Skin Integrity Pressure points intact Skin Turgor Elastic Mucous Membrane Color Fleming Mucous Membrane Description Moist Sensory Perception Bassem No impairment Moisture Bassem Rarely moist Activity Bassem Bedfast Mobility Bassem Slightly limited Nutrition Bassem Adequate Friction and Shear Bassem No apparent problem Bassem Score 18 Hospital Acquired Pressure Injury Risk Low risk (score 15-18) Back Lower, Midline Skin Abnormality Type: Surgical incision Incision, Wound Dressing/Activity: Open to air Wound Edge: Approximated, Glued Wound Exudate Amount: None Incision, Wound Surrounding Tissue: Normal, Dry Wound Status: No complications Wound Associated Pain: None Neurological Language Able to speak clearly, Follows simple commands Neurological Symptoms Patient denies Gait Unable to assess Extremity Movement Equal Swallowing Difficulty None Characteristics of Communication Appropriate Characteristics of Speech Clear Facial Symmetry Symmetric Level of Consciousness Alert Aspiration Risk None Eye Opening Response Diane Spontaneously Best Motor Response Diane Obeys simple commands Best Verbal Response Brandon Oriented Diane Coma Score 15 MARIBELL Yes Left Pupil Description Regular Right Pupil Description Regular Left Pupil Reaction Brisk Right Pupil Reaction Brisk Pupil Size, Left 3 mm Pupil Size, Right 3 mm Strength All Extremities Strong Left Upper Extremity Sensation Intact Right Upper Extremity Sensation Intact Left Lower Extremity Sensation Intact Right Lower Extremity Sensation Intact CN V Facial Sensation Corneal reflex present CN VII Facial Expression and Symmetry Facial movement symmetrical CN VIII Hearing Spoken word equally audible left/right CN IX, X Swallowing, Gag Reflex Swallowing present Patel Screen Daily History of Fall in Last 3 Months Aptel No Presence of Secondary Diagnosis Patel Yes Use of Ambulatory Aid Patel None, bedrest, wheelchair, nurse IV/PRN Adapter Fall Risk Patel Yes Gait Weak or Impaired Fall Risk Aptel Normal, bedrest, immobile Mental Status Fall Risk Patel Oriented to own ability Patel Fall Risk Score 35 Violence Risk Confused No Violence Risk Irritable No Violence Risk Boisterous No Violence Risk Verbal Threats No Violence Risk Physical Threats No Violence Risk Attacking Objects No Violence Risk Predictor Score 0 Violence Risk Intervention None Violence Risk Current Interventions None Affect/Behavior Appropriate, Calm, Cooperative Orientation Oriented x 4 BMAT Existing Patient Condition/Safety Strict bedrest Orientation Assessment Oriented x 4 Positioning Repositions self Activity Status ADL Sleeps intermittently Beds/Devices Hospital bed Sequential Compression Device bilateral knee high removed/off Reason SCD Removed/Off Patient refused Nurse Safety Checks q2hrs Performed 3am-7am Standard Safety ID band on High Risk Safety Room check performed Demonstrates Correct Call Light Use Yes RN Coordination of Care 3am-7am Appetite Good Eating Difficulties None 12/23/2023 3:46 EDT tiZANidine 4 mg mg 12/23/2023 3:42 EDT Skin Assessment Verification Not Done: Not Appropriate at this Time (Not Done) Skin Assessment Verification Not Done: Not Appropriate at this Time (Not Done) 12/23/2023 2:57 EDT Temperature Oral 36.6 DegC Peripheral Pulse Rate 72 bpm Systolic Blood Pressure Non-Invasive 103 mmHg Diastolic Blood Pressure Non-Invasive 69 mmHg Blood Pressure Method Automatic Blood Pressure Location Right arm Reason For Taking VItal Signs Routine Oxygen Therapy Room air Oxygen Saturation 92 % LOW Positioning Repositioned left side, Repositions self, Encouraged/reinforced importance of turning Activity Status ADL Sleeping 12/23/2023 2:26 EDT Nurse Safety Checks q2hrs Performed Other: 7p-3a RN Coordination of Care Other: 7p-3a 12/23/2023 1:55 EDT Activity Status ADL Sleeping 12/23/2023 1:42 EDT Primary Pain Location Lower back Primary Pain Intensity 8 Primary Pain Pharma Intervention Other: cannot give prn due to timeframe. Notified inspector outside steam distribution to notify physician for additional orders Primary Pain Nonverbal Response Nods Yes Pain Scale Type 0-10 Pain scale Nail Bed Color Fleming Capillary Refill < 2 seconds Facial Movement Makes facial grimaces, Symmetric resting/crying All Extremity Description Normal for ethnicity Temperature All Extremities Warm Neurological Language Able to speak clearly, Follows simple commands Neurological Symptoms Patient denies Gait Unable to assess Extremity Movement Equal Swallowing Difficulty None Characteristics of Communication Appropriate Characteristics of Speech Clear Facial Symmetry Symmetric Level of Consciousness Alert Aspiration Risk None Eye Opening Response Brandon Spontaneously Best Motor Response Diane Obeys simple commands Best Verbal Response Diane Oriented Diane Coma Score 15 MARIBELL Yes Left Pupil Description Regular, Round Right Pupil Description Regular, Round Left Pupil Reaction Brisk Right Pupil Reaction Brisk Pupil Size, Left 3 mm Pupil Size, Right 3 mm Strength All Extremities Strong Left Upper Extremity Sensation Intact Right Upper Extremity Sensation Intact Left Lower Extremity Sensation Intact Right Lower Extremity Sensation Intact CN V Facial Sensation Corneal reflex present CN VII Facial Expression and Symmetry Facial movement symmetrical CN VIII Hearing Spoken word equally audible left/right CN IX, X Swallowing, Gag Reflex Swallowing present Affect/Behavior Appropriate Orientation Follows simple commands Orientation Assessment Oriented x 4 Positioning Repositioned left side, Repositions self Activity Status ADL Awake 12/23/2023 1:17 EDT Positioning Repositions self Activity Status ADL Sleeping Standard Safety Safety level maintained High Risk Safety Room check performed Demonstrates Correct Call Light Use Yes 12/23/2023 0:43 EDT Mechanical VTE Prophylaxis Education Education deferred- patient sleeping, Not done this session Sequential Compression Device bilateral knee high removed/off Sequential Compression Device Form Sequential Compression Device Form 12/23/2023 0:42 EDT Pain Scale Assessment PAINAD Primary Pain Location Lower back Primary Pain Intensity 0 Reason for PRN medication Pain management PRN medication effectiveness Yes PRN Medication Effectiveness Evaluation PRN Medication Effectiveness Evaluation 12/23/2023 0:41 EDT Able To Drink Order Detail Yes Able To Sign Consents Order Detail Yes Code Status Order Detail Full code IV Order Detail Yes Dialysis Schedule Order Detail N/A Has Diabetes Order Detail Yes Isolation Precautions Order Detail None Nurse Collect Order Detail 0 Oxygen Order Detail No Order Detail N/A Prior Valve Replacement Order Detail No Transport Mode Order Detail Bed Nurse and Monitor Motion Picture Director Details Form Motion Picture Director Details Form 12/23/2023 0:40 EDT Mechanical VTE Prophylaxis Education Not Done: Not Appropriate at this Time (NotDone) Mechanical VTE Prophylaxis Education Not Done: Not Appropriate at this Time (Not Done) Sequential Compression Device Not Done: Not Appropriate at this Time (Not Done) Sequential Compression Device Not Done: Not Appropriate at this Time (Not Done) Able To Drink Order Detail Not Done: Not Appropriate at this Time (Not Done) Able To Sign Consents Order Detail Not Done: Not Appropriate at this Time (Not Done) Code Status Order Detail Not Done: Not Appropriate at this Time (Not Done) IV Order Detail Not Done: Not Appropriate at this Time (Not Done) Dialysis Schedule Order Detail Not Done: Not Appropriate at this Time (Not Done) Has Diabetes Order Detail Not Done: Not Appropriate at this Time (Not Done) Isolation Precautions Order Detail Not Done: Not Appropriate at this Time (Not Done) Nurse Collect Order Detail Not Done: Not Appropriate at this Time (Not Done) Oxygen Order Detail Not Done: Not Appropriate at this Time (Not Done) Order Detail Not Done: Not Appropriate at this Time (Not Done) Prior Valve Replacement Order Detail Not Done: Not Appropriate at this Time (Not Done) Transport Mode Order Detail Not Done: Not Appropriate at this Time (Not Done) Motion Picture Director Details Form Not Done (Not Done) Sequential Compression Device Form Not Done (Not Done) Sequential Compression Device Form Not Done (Not Done) 12/23/2023 0:16 EDT Reason For Taking VItal Signs Routine Continuous IV Infusions NS@50mL/hr Upper arm Left 12/22/2023 20 gauge Peripheral IV Activity: Assessed Peripheral IV Line Status/Patency: Flushes easily, Good blood return Peripheral IV Site Condition: No complications Peripheral IV Equipment: IV Pump Violence Risk Confused No Violence Risk Irritable No Violence Risk Boisterous No Violence Risk Verbal Threats No Violence Risk Physical Threats No Violence Risk Attacking Objects No Violence Risk Predictor Score 0 Violence Risk Intervention None Violence Risk Current Interventions None Positioning Repositions self Activity Status ADL Sleeping Standard Safety Safety level maintained High Risk Safety Room check performed Demonstrates Correct Call Light Use Yes . Assessment and Plan [employer] [place] [employer] (ASA) physical status classification: Class III, MERLENE; COPD; DM; HTN. Anesthetic Preoperative Plan Anesthetic technique: General. Maintenance airway: Oral endotracheal tube. Risks discussed: nausea, vomiting, headache, sore throat, dental injury, hypotension, allergic reaction, serious complications. Informed consent: signed by patient. Notes: Mr. Victor was seen and examined by meGuanakito MD. The medical record was reviewed.Consultations, lab results , radiographic results and cardiovascular studies examined and noted. Anesthesia was explained in detail and questions were invited and answered. We will proceed as outlined in the plan above.. Digitally Signed by GUANAKITO BOSCH MD on 12/24/2023 10:34 AM Digitally Signed by GUANAKITO BOSCH MD on 12/24/2023 02:30 PM [facility] 06-26-2024 Nurse Progress note Nurse had patient walk to the bathroom. Patient complains of pressure in lower back near incision states that it gets pretty bad. States that he can feel swelling, nurse looked at incision and noted no swelling at incision site. Complaints of headache when getting out of bed and walking. States it's a pressure headache that starts in the back of the neck and wraps around to my forehead. States the pressure/pain is a 7/10. Head of bed elevated up to 45 degrees and denies any pressure/pain. Lowered bed to 23 degrees and complained of slight pain/pressure in head. Complaints of numbness and tingling in feet when ambulating and resolves immediately after laying down. Denies any decreased sensation in legs. After laying in bed for 10 minutes, pain has decreased in his head to a 5/10, and pressure also has been slightly relieved. Denies any nausea, lightheadedness, or dizziness. Digitally Signed by Lindsey Carmen RN on 12/23/2023 06:16 PM [id number] NoteSINUS RHYTHM LEFT AXIS DEVIATION BORDERLINE T WAVE ABNORMALITIES Electronic Signature: JOHN LONDON MD 12/25/2023 07:50:35[facility] 06-26-2024 Respiratory therapy Hospital Progress note pt states he does not take spiriva at home and wishes only to recieve aerosols prn Digitally Signed by VENKAT Peterson on 12/23/2023 06:26 AM [id number] History and physical note Date of Service 12/22/2023 Chief Complaint Positional headaches History of Present Illness This is a 48 year old male who known to [facility] as he recently underwent L4-S1 laminectomy with bilateral foraminotomies by Dr. Kapoor on 12/08/2023. Prior to surgery he was experiencing low back pain radiating to bilateral hips and down bilateral lower extremities with paresthesias and we akness. Postoperatively, patient reported benefit with surgery and felt that low back pain and leg pain headache greatly improved postoperatively. Had near resolution of lower extremity paresthesias and felt he was getting stronger. He was evaluated in the neurosurgery office 12/21/[address] Chun practitioner for his 2 week postoperative visit. He reported complaints of headaches postoperatively, described as a sharp, pressure sensation. Headaches reported to be worse with sitting and standing; improved/resolved when laying flat. Operative note indicates there was a partial dural tear intraoperatively, however no evidence of CSF leak intraoperatively. He was ordered to have a lumbar spine CT with contrast to further evaluate for CSF leak postoperatively. Advised to lay flat is much as possible and take Tylenol as needed. Has been weaning off his pain medication down to taking approximately just once daily in the evenings. Is also still taking his muscle relaxants as needed. Instructed to notify neurosurgery office with worsening symptoms. CT lumbar spine completed the morning of 12/22/2023 and reviewed with the office [employer] and collaborating surgeon Dr. Espinoza who is providing coverage at this time while Dr. Kapoor is out of town. Dr. Espinoza provides there is evidence of a peripherally enhancing fluid collection at the surgical site. This measures approximately 3.8 x 3.5 x 5.5 cm and appears consistent with a CSF leak. Dr. Espinoza has advised for direct admission to the hospital to obtain a stat lumbar spine MRI with and without contrast for further evaluation. Patient will be kept on bedrest. Patient agreeable tothis and MRI was scheduled. MRI of the lumbar spine performed and according to radiologist read shows a 6.6 cm peripheral enhancing fluid collection at the operative site causing mass effect upon the thecal sac and resulting moderate canal stenosis at L3-L4 and L4-L5. Also 10.5 cm multiloculated fluid collection in the subcutaneous fat. 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 Patient is seen lying in bed; directly admitted to the hospital right after MRI was completed. His accompanies him, and is at the bedside. Patient continues to endorse improvement of his preoperative symptoms and has no new or worsening lower extremity pain, paresthesias or weakness. He currently rates headache 8/10 in severity. Now is lying flat in bed. He has intact sensation of the lower extremities and strong and intact motor strength with 5/5 plantarflexion dorsiflexion, knee flexion/extension and hip flexors bilaterally. Lumbar incision site is well-approximated and healing extremely well. There is no open areas. No evidence of drainage or bleeding. No soft tissue swelling, edema, or fluid collections at site. No erythema, or warmth. Dermabond remains intact over the incision line. Patient does indicate that towards the evenings notices a little bit of puffiness/swelling laterally along the incision, which tends to go away and dissipate as he mobilizes. Review of Systems GENERAL: Denies any recent illnesses, fevers, chills or night sweats. SKIN: Denies skin complaints. HEENT: See HPI. Denies acute changes in visual acuity. Denies diplopia or blurred vision. Denies earaches, changes in hearing, or otorrhea. Denies rhinorrhea or sore throat. MS: Denies acute cervical, thoracic; denies new or worsening lumbar pain. Denies specific joint pain, redness or swelling. RESPIRATORY: Denies shortness of breath, difficulty breathing or cough. CARDIOVASCULAR: Denies chest pain, pressure, palpitations. GI: Denies abdominal pain, nausea, vomiting. Denies acute changes in bowel movements/habits. Patient states he is having bowel movements normally at his baseline. Denies constipation. : Denies dysuria or hematuria. Denies acute urinary incontinence, or loss of urinary control. NEUROLOGICAL: See HPI. Physical Exam Vitals and Measurements T: 37 C (Oral) HR: 72 RR: 18 BP: 138/87 SpO2: 97% HT: 175.3 cm WT: 113.6 kg BMI: 36.97 Weight Dosing Weight: 113.6 kg (12/22/23) General survey: Skin: Skin is warm and dry. No rashes. HEENT: Head is normocephalic. Extraocular movements are intact; no nystagmus or gaze deviation. Pupils are equal and round, and briskly reactive to light. 3 mm in size bilaterally. No otorrhea or rhinorrhea. Oral mucosa is pink and moist. MS: Moves all extremities freely without difficulty. No pain with palpation of cervical, thoracic or lumbar spine. No paraspinal tenderness. Cardiovascular: Regular heart rate and rhythm. S1-S2 present.. No peripheral edema. Respiratory: Respirations even and unlabored. Lungs are clear bilaterally. Abdomen: Abdomen is soft, nontender and nondistended. Bowel sounds are present. Peripheral vascular: Extremities are warm and without edema. Radial and pedal pulses are 2+ and symmetric. Neurological: See HPI. Moves upper extremities without difficulty and has strong and intact strength and sensation of arms and hands. He is awake, alert and fully oriented. Speech is clear and fluent. Follows commands accurately without difficulty. Lab Results No 36 Hour Lab Data Imaging Results and Diagnostics See HPI. Assessment/Plan Post-operative fluid collection, concern for CSF leak s/p L4-S1 laminectomy with bilateral foraminotomies by Dr. Kapoor on 12/08/2023 c/o positional headaches Operative note indicates there was a partial dural tear intraoperatively, however no evidence of CSF leak intraoperatively. Seen in Neurosurgery office 12/21/23; due to c/o of positional headaches, CT lumbar spine completed outpatient the morning of 12/22/[address] Dr. Esp[address] CT with office [employer],and provides there is evidence of a peripherally enhancing fluid collection at the surgical site. This measures approximately 3.8 x 3.5 x 5.5 cm and appears consistent with a CSF leak. Dr. Espinoza advised for direct admission to the hospital to obtain a stat lumbar spine MRI with and without contrast for further evaluation; patient agreeable MRI of the lumbar spine performed and according to radiologist read shows a 6.6 cm peripheral enhancing fluid collection at the operative site causing mass effect upon the thecal sac and resulting moderate canal stenosis at L3-L4 and L4-L5. Also 10.5 cm multiloculated fluid collection in the subcutaneous fat. 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 Patient ordered to be kept flat on strict bedrest, but instructed not to lay straight on back, alternate on sides Please refer to Dr. Espinoza's note for further details of his neurosurgical input, MRI interpretation, and recommendations for treatment. --Patient tentatively scheduled for Lumbar wound exploration, repair of dural tear, possible lumbardrain placement. Problem List/Past Medical History Ongoing Abdominal pain Acid reflux Asthma COPD mixed type Diarrhea Hyperlipidemia Hypertension Kidney stones Lumbar radiculopathy Lung nodule Migraine Nicotine dependence Postural dizziness Prediabetes Preop examination Renal cyst Rheumatoid arthritis Vitamin D deficiency Wellness examination Historical Burn Procedure/Surgical History Laminectomy: 12/08/23 Tooth extraction Extraction of wisdom tooth Eye Injection ESWL (extracorporeal shockwave lithotripsy) of ureteric calculus EGD (esophagogastroduodenoscopy) gastric outlet reduction Colonoscopy Hernia repair Insertion of aylin through fracture Cholecystectomy Medications Home Medications (14) Active Albuterol (Eqv-Ventolin HFA) 90 mcg/inh inhalation aerosol 1 puff(s), PRN, Inhalation, QID atorvastatin 40 mg oral tablet 40 mg = 1 tab(s), Oral, qDay Colace 100 mg oral capsule 100 mg = 1 cap(s), PRN, Oral, BID DME MISCellaneous See Instructions ergocalciferol 50,000 intl units (1.25 mg) oral capsule 1 cap(s), Oral, qWeek gabapentin 300 mg oral capsule 1 cap(s), Oral, TID hydroCHLOROthiazide 25 mg oral tablet 1 tab(s), Oral, qDay hyoscyamine 0.125 mg sublingual tablet 0.125 mg = 1 tab(s), Sublingual, QID lidocaine 5% topical patch See Instructions metFORMIN 500 mg oral tablet (IR) 500 mg = 1 tab(s), Oral, qDay omeprazole 40 mg oral delayed release capsule 40 mg = 1 cap(s), Oral, qDay Spiriva Respimat 1.25 mcg/inh inhalation aerosol 2 puff(s), Inhalation, qDay tiZANidine 4 mg oral tablet 1 tab(s), PRN, Oral, q8h traZODone 100 mg oral tablet 2 tab(s), Oral, qHS Allergies Tape RASH Vicodin VOMITTING Social History Smoking Status - 01/05/2018 Former smoker Alcohol - Low Risk, 08/25/2017 Use: Current. Frequency: 1-2 times per year., 11/27/2023 Home/Environment Domestic Concerns: Denies., 11/27/2023 Nutrition/Health Type of diet: Regular. Appetite Excellent., 07/06/2020 Substance Abuse - Denies Substance Abuse, 08/25/2017 Use: Current. Type: Marijuana, MEDICAL MARIJUANA. Frequency: 1-2 times per week., 11/27/2023 Tobacco Nicotine Use: STATES CHEWS 1-2 TIMES A MONTH. Type: Oral (Snuff, Chew)., 11/27/2023 Nicotine Use: 10 or more cigarettes (1/2 pack or more)/day in last 30 days. Type: Cigarettes. Tobacco use per day: 10. Started at age: 14 Years. Ready to change: Yes. Smoking Cessation Information Instructed to not smoke day of surgery., 11/27/2023 Family History Cancer: Mother and Father. Diabetes mellitus: Mother and Father. Heart disease: Mother and Father. Health Status Family Member(s) Immunizations pneumococcal 23-valent vaccine(Pneumovax: 0.5 unknown unit (09/17/17) tetanus/diphth/pertuss (Tdap) adult/adol: 0.5 mL (01/04/18) Code Status No qualifying data available. Digitally Signed by DAYNE DUVAL on 12/23/2023 03:01 PM [id number] Note ORIGINAL EXAMINATION: MRI OF THE LUMBAR SPINE WITHOUT AND WITH CONTRAST 12/22/2023 2:18 pm TECHNIQUE: Multiplanar multisequence MRI of the lumbar spine was performed without and with the administration of intravenous contrast. COMPARISON: 10/15/2023 HISTORY: ORDERING SYSTEM PROVIDED HISTORY: Reason for Exam: s/p L4-S1 laminectomy with bilateral foraminotomies with Dr. Kapoor on 12/08/2023. CSF leak on CT scan. Headaches since surgery FINDINGS: For the purposes of this dictation, there are 5 lumbar type vertebral bodies with the most caudal fully segmented body denoted as L5. Minimal retrolisthesis L5 on S1. Alignment is otherwise maintained. Vertebral body heights are preserved. There is mild disc desiccation at L4-5 and L5-S1 with preservation of disc heights. No suspicious marrow signal. The conus terminates at a normal level. There is new diffuse nerve root clumping since the prior. Incompletely characterized T2 hyperintense renal lesions could reflect cysts. 1 of the lesions on the left has layering T2 hypointensity which could represent milk of calcium. There has been interval posterior decompression from L3-4 through mid L5. At the operative site, there is a peripherally enhancing fluid collection measuring 6.6 cm cranial caudal by 3.2 cm transverse by 4.0 cm AP. This collection abuts and distorts the thecal sac. The dura is difficult to assess but there appears to be interruption of the dura posteriorly at the mid L5 level (image 13 series 5). There are lobules of fat at the L4-5 level posteriorly in the region of the fluid collection, perhaps displaced to this location during surgery. There is an additional multiloculated fluid collection in the subcutaneous fat measuring 10.5 cm in cranial caudal dimension which could be postoperative but MRI cannot determine the sterility. L1-L2: Ligamentum flavum hypertrophy. Clumping of the nerve roots. No canal or neural foraminal stenosis. L2-L3: Ligamentum flavum hypertrophy. Clumping of the nerve roots. No canal or neural foraminal stenosis. L3-L4: Posteriorly decompressed. Facet arthropathy. Fluid collection at the operative site results in moderate canal stenosis. Clumping of the nerve roots. No significant neural foraminal stenosis. L4-L5: Small high-intensity zone of the disc. Facet arthropathy. Posterior fluid collection with mass effect upon the canal and resultant moderate canal stenosis. Clumping of the nerve roots. No significant neural foraminal stenosis. L5-S1: Facet arthropathy. Clumping of the nerve roots. No canal stenosis. Mild right but no significant left neural foraminal stenosis. IMPRESSION: 1. 6.6 cm peripherally enhancing fluid collection at the operative site with mass effect upon the thecal sac and resultant moderate canal stenosis at L3-L4 and L4-L5. Postoperative fluid collection or CSF leak are the primary differentials. Sterility of this collection cannot be determined by imaging. 2. 10.5 cm multiloculated fluid collection in the subcutaneous fat which could be postoperative but MRI cannot determine the sterility. 3. 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 4. Clumps of fat in the region of the fluid collection at L4-5, perhaps displaced during surgery. Interpreted by: Karie Curran MD Preliminary Report By: Karie Curran MD Electronically signed By Karie Curran MD Dictated Date: 12/22/2023 2:28:10 PM Prelim Date: 12/22/2023 2:44:46 PM Sign Date: 12/22/2023 2:44:46 PM Ordering Provider: [facility]06[facility] Evaluation + Plan noteExtracted from: Title:History and Physical Author:DAYNE DUVAL APRN-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 Date:12/22/23 Post-operative fluid collect ion, concern for CSF leak s/p L4-S1 laminectomy with bilateral foraminotomies by Dr. Kapoor on 12/08/2023 c/o positional headaches Operative note indicates there was a partial dural tear intraoperatively, however no evidence of CSF leak intraoperatively. Seen in Neurosurgery office 12/21/23; due to c/o of positional headaches, CT lumbar spine completed outpatient the morning of 12/22/[address] Dr. Esp[address]za [address] CT with office [employer],and provides there is evidence of a peripherally enhancing fluid collection at the surgical site. This measures approximately 3.8 x 3.5 x 5.5 cm and appears consistent with a CSF leak. Dr. Espinoza advised for direct admission to the hospital to obtain a stat lumbar spine MRI with and without contrast for further evaluation; patient agreeable MRI of the lumbar spine performed and according to radiologist read shows a 6.6 cm peripheral enhancing fluid collection at the operative site causing mass effect upon the thecal sac and resulting moderate canal stenosis at L3-L4 and L4-L5. Also 10.5 cm multiloculated fluid collection in the subcutaneous fat. 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 Patient ordered to be kept flat on strict bedrest, but instructed not to lay straight on back, alternate on sides Please refer to Dr. Espinoza's note for further details of his neurosurgical input, MRI interpretation, and recommendations for treatment. --Patient tentatively scheduled for Lumbar wound exploration, repair of dural tear, possible lumbar drain placement. Addendum by MARINA ESPINOZA MD on December 24, 2023 11:20:46 EDT Patient was seen and evaluated with Dayne Duval APRN on December 22, 2023 Agree with assessment and plan 48-year-old gentleman Underwent L4-S1 laminectomy by Dr. Kapoor on December 08, 2023 Postoperatively patient has developed signs and symptoms of postop CSF leak He has not been very mobile since he is gone home due to the fact that when he stands up and walks he has pain in the back of the neck going into his head and some leg symptoms He was seen on outpatient basis for his postop follow-up No drainage from his incision was reported and the incision appears to have healed completely MRI of the lumbar spine is ordered since CAT scan shows a fluid collection with possible compression of cauda equina He is directly admitted to the hospital for further evaluation and treatment Pending MRI findings further recommendations will be made He is currently asymptomatic and appears to be comfortable without signs or symptoms of infection or neurological deficits Marina Espinoza MD Future Appointments Appointment Date:01/06/2024 12:00:00 AM Scheduled Provider: Location:[facility] Appointment Type:JULISA PSG (Polysomnograph) Appointment Date:01/14/2024 07:20:00 AM Scheduled Provider:KARISSA SALINAS DO Location:[facility] Appointment Type:PC OV Lab Check Appointment Date:04/12/2024 10:00:00 AM Scheduled Provider: Location:XRAY Appointment Type:US Renal Appointment Date:04/18/2024 11:00:00 AM Scheduled Provider:KARISSA SALINAS DO Location:[facility] Appointment Type:PC OV Follow Up Future Scheduled Tests Laboratory* Thyroid Stimulating Hormone 05/18/24 * Thyroid Stimulating Hormone 01/14/24 * A1C Hemoglobin 05/18/24 * A1C Hemoglobin 01/14/24 * Complete Blood Count 05/18/24 * Complete Blood Count 01/14/24 * Lipid Profile 05/18/24 * Lipid Profile 01/14/24 * Hepatitis C Antibody IgG 01/14/24 * Vitamin D Level 05/18/24 * Vitamin D Level 01/14/24 * Complete Metabolic Panel 05/18/24 * Complete Metabolic Panel 01/14/24 Radiology* CT Spine Lumbar w/ Contrast 12/28/23 * US Renal 04/12/24 [facility] 06-25-2024 Note ORIGINAL EXAMINATION: CT OF THE LUMBAR SPINE WITH CONTRAST 12/22/2023 11:16 am TECHNIQUE: CT of the lumbar spine was performed with the administration of intravenous contrast. Multiplanar reformatted images are provided for review. Automated exposure control, iterative reconstruction, and/or weight based adjustment of the mA/kV was utilized to reduce the radiation dose to as low as reasonably achievable. COMPARISON: MRI lumbar spine 10/15/2023 HISTORY: ORDERING SYSTEM PROVIDED HISTORY: Reason for Exam: s/p L4-S1 laminectomy with bilateral foraminotomies with Dr. Kapoor on 12/08/2023. Having positional headaches. Assess for CSF leak FINDINGS: There are 5 lumbar type vertebral bodies. Minimal retrolisthesis L5 on S1. Alignment is otherwise maintained. Vertebral body heights are preserved. The there is no acute fracture or traumatic malalignment. Disc spaces are maintained. There are a few scattered minimal osteophytes. A right renal cyst is identified requiring no imaging follow-up. Left renal lesions measure more than fluid attenuation bilateral simple renal cysts are identified requiring no imaging follow-up. Additionally, there are lesions of the left kidney which measure more than fluid attenuation but are favored to represent complex cysts. This could be confirmed by ultrasound. Colonic diverticula are noted. Minimal atherosclerotic disease noted in the aorta. The common duct appears prominent measuring 1 cm, not well assessed by this method. The There has been posterior decompression at L4-5 since the prior. Partial removal of the L3 spinous process and L5 spinous process. There is a peripherally enhancing fluid collection at the surgical levels which appears contiguous with the canal and measures approximately 3.8 cm transverse by 3.5 cm AP by 5.5 cm cranial caudal. This could be consistent with clinical concern for an area of CSF leak. CT cannot determine the sterility. IMPRESSION: 1. Peripherally enhancing fluid collection at the surgical site which appears contiguous with the canal. This could be consistent with an area of CSF leak but would be better evaluated by MRI or CT myelogram. CT cannot determine the sterility of this fluid collection. 2. Left renal lesions measure more than fluid attenuation but are favored to represent complex cysts. This could be confirmed by ultrasound. 3. The common duct appears prominent measuring 1 cm, not well assessed by this method. Interpreted by: Karie Curran MD Preliminary Report By: Karie Curran MD Electronically signed By Karie Curran MD Dictated Date: 12/22/2023 11:23:39 AM Prelim Date: 12/22/2023 11:33:22 AM Sign Date: 12/22/2023 11:33:22 AM Ordering Provider[id number] Discharge instructions Patient Education 12/11/2023 08:49:43 6- FAQ about SSI (09/07 IC) (CUSTOM) FAQs about Surgical SiteInfections (frequently asked questions) What is a Surgical Site Infection (SSI)? A surgical site infection is an infection that occurs after surgery in the part of the body where the surgery took place. Most patients who have surgery do not develop an infection. However, infections develop in about 1 to 3 out of every 100 patients who have surgery. Some of the common symptoms of a surgical site infection are: Redness and pain around the area where you had surgery Drainage of cloudy fluid from your surgical wound Fever Can SSIs be treated? Yes. Most surgical site infections can be treated with antibiotics. The antibiotic given to you depends on the bacteria (germs) causing the infection. Sometimes patients with SSIs also need another surgery to treat the infection. What are some of the things that hospitals are doing to prevent SSIs? To prevent SSIs, doctors, nurses, and other healthcare providers: Clean their hands and arms up to their elbows with an antiseptic agent just before the surgery. Clean their hands with soap and water or an alcohol-based hand rub before and after caring for eachpatient. May remove some of your hair immediately before your surgery using electric clippers if the hair isin the same area where the pro cedure will occur. They should not shave you with a razor. Wear special hair covers, masks, gowns, and gloves during surgery to keep the surgery area clean. Give you antibiotics before your surgery starts. In most cases, you should get antibiotics within 60 minutes before the surgery starts and the antibiotics should be stopped within 24 hours after surgery. Clean the skin at the site of your surgery with a special soap that kills germs. What can I do to help prevent SSIs? Before your surgery: Tell your doctor about other medical problems you may have. Health problems such as allergies, diabetes, and obesity could af fect your surgery and your treatment. Quit smoking. Patients who smoke get more infections. Talk to your doctor about how you can quit before your surgery. Do not shave near where you will have surgery. Shaving with a razor can irritate your skin and makeit easier to develop an infection. At the time of your surgery: Speak up if someone tries to shave you with a razor before surgery. Ask why you need to be shaved and talk with your surgeon if you have any concerns. Ask if you will get antibiotics before surgery. After your surgery: * Make sure that your healthcare providers clean their hands before examining you, either with soapand water or an alcohol-based hand rub. Family and friends who visit you should not touch the surgical wound or dressings. Family and friends should clean their hands with soap and water or an alcohol- based hand rub beforeand after visiting you. If you do not see them clean their hands, ask them to clean their hands. If you do not see your providers clean their hands, please ask them to do so. What do I need to do when I go home from the hospital? Before you go home, your doctor or nurse should explain everything you need to know about taking care of your wound. Make sure you understand how to care for your wound before you leave the hospital. Always clean your hands before and after caring for your wound. Before you go home, make sure you know who to contact if you have questions or problems after you get home. If you have any symptoms of an infection, such as redness and pain at the surgery site, drainage, or fever, call your doctor immediately. If you have questions, please ask your doctor or nurse. Co-sponsered by: MONTIEL, IDSA, AHA, APIC, CDC, The Joint Commission Follow Up Care 11/06/2023 10:31:59 With:ORIN BRADFORD, Neurosurgery Address: [address] [place] [address] [place] [address]- [phone] When:12/21/2023 09:15:00 [facility] 06-14-2024 Note Discharge Instructions Thank you for allowing [facility] to assist you with your healthcare needs. The following is importantdischarge information regarding your hospital visit. Your Care Team KARISSA SALINAS DO Your Diagnosis Hyperlipidemia Lumbar post-laminectomy syndrome Prediabetes What to do next Instructions From Your Doctor You may restart your aspirin 81mg daily, 1 week after surgery. Otherwise, no additional aspirin, Motrin, ibuprofen, Aleve, or naproxen). No lifting more than 10 pounds. Avoid bending/twisting at the waist. No driving for at least 2 weeks; No driving while taking narcotics or muscle relaxants. Keep surgical incision clean and dry at all times until healed (about 2 weeks postoperatively). Maintain surgical dressing over incision for 7 days postoperatively as it is embedded with an antibiotic. After 1 week postop, remove dressing and begin to change daily using dry sterile gauze for about 7-10 days. May leave open to air once fulled healed. Okay to shower, but cover surgical incision with watertight dressing until healed (about 2 weeks postoperatively) No soaking incision site for 6 weeks postoperatively (No tub baths, hot tubs, saunas, swimming, etc.) If surgical incision site becomes red, swollen, painful, opens and/or drainage around site or if you develop a fever- Contact neurosurgery office immediately. Scheduled Follow-Up Appointments Appointment Type When With Where Contact Information StatusNS Post Op 12/21/2023 09:15 AM EDT Neurosurgery [address] [phone] Confirmed SL PSG (Polysomnograph) 12/22/2023 08:00 PM EDT [facility] [address] [place] [address]- Confirmed PC OV Lab Check 01/14/2024 07:20 AM EDT [facility] Confirmed US Renal 04/12/2024 10:00 AM EDT Radiology [phone] Confirmed PC OV Follow Up 04/18/2024 11:00 AM EDT [facility] Confirmed Follow Up Appointments Follow Up with ORIN BRADFODR, Neurosurgery When:12/21/2023 09:15 AM EDT Where:[address] [phone] The Following Activity and Diet Have Been Ordered for You No qualifying data available. No qualifying data available. The Following Equipment Has Been Ordered for You No qualifying data available. The Following Treatments Have Been Ordered for You Discharge Labs No qualifying data available. Discharge Radiology No qualifying data available. Other Therapies No qualifying data available. Post Acute Orders No qualifying data available. Someone Will Contact You Regarding These Home Health Referrals No home referrals have been ordered for you. No one will call you. Allergies Tape RASH Vicodin VOMITTING Medications Please ask your primary doctor or pharmacist before taking any other medication not listed, including over the counter drugs, herbal medications, vitamins and or supplements as they may interact withyour home medications. What How Much When Why Instructions Last Dose New acetaminophen-oxyCODONE (acetaminophen-oxyCODONE 325 mg-5 mg oral tablet) See instructions Lumbar post-laminectomy syndrome 1 tab(s) Oral q6h PRN pain 4-6. 2 tabs Oral q6h PRN pain 7-10. not to exceed 6 tablets/ day., As needed for for pain Pickup at [facility]/pharmacy #[id number] Unchanged albuterol (Albuterol (Eqv-Ventolin HFA) 90 mcg/ inh inhalation aerosol) 1 puff(s) by inhalation Four (4) times a day as needed for NEEDED FOR WHEEZING Duration: 30 Days Unchanged atorvastatin (atorvastatin 40 mg oral tablet) 1 tab(s) by mouth Once a day Hyperlipidemia Unchanged docusate (Colace 100 mg oral capsule) 1 cap by mouth Two (2) times a day as needed for as needed for constipation Constipation Unchanged ergocalciferol (ergocalciferol 50,000 intl units (1.25 mg) oral capsule) 1 cap by mouth Every week ON THU Unchanged gabapentin (gabapentin 300 mg oral capsule) 1 cap by mouth Three (3) times a day Unchanged hydroCHLOROthiazide (hydroCHLOROthiazide 25 mg oral tablet) 1 tab(s) by mouth Once a day Unchanged hyoscyamine (hyoscyamine 0.125 mg sublingual tablet) 1 tab(s) under the tongue Four (4) times a day Duration: [address] 1 tablet under the tongue and ALLOW to dissolve before meals and at bedtime Unchanged lidocaine topical (lidocaine 5% topical patch) See instructions APPLY TO AFFECTED AREA DAILY REMOVE PATCHES AFTER 12 HOURS- ONLY USES NEEDED Unchanged magnesium oxide (magnesium oxide 400 mg oral tablet) 1 tab(s) by mouth Once a day Unchanged metFORMIN (metFORMIN 500 mg oral tablet (IR)) 1 tab(s) by mouth Once a day Prediabetes Unchanged omeprazole (omeprazole 40 mg oral delayed release capsule) 1 cap by mouth Once a day Duration: 90 Days Unchanged tiotropium (Spiriva Respimat 1.25 mcg/ inh inhalation aerosol) 2 puff(s) by inhalation Once a day Unchanged tiZANidine (tiZANidine 4 mg oral tablet) 1 tab(s) by mouth Every 8 hours as needed for NEEDED FOR MUSCLE SPASM Unchanged traZODone (traZODone 100 mg oral tablet) 2 tab(s) by mouth Daily at bedtime Duration: 90 Days Pharmacy Information [facility]/pharmacy #[id number]: [address], [place] [phone] What How Much When Comments Stop Taking aspirin (Aspirin Low Dose 81 mg oral tablet, chewable) 1 tab(s) by mouth Once a day Stop Taking meloxicam (meloxicam 15 mg oral tablet) 1 tab(s) by mouth Once a day Stop Taking mupirocin topical (mupirocin 2% topical ointment) 1 application Topical Two (2) times a day Bilateral intranasal application twice daily for 5 days prior to surgery &/ or as many days leading up to surgery as possible due to surgical urgency/ scheduling. Send to patient's preferred pharmacy. Please take this list to your next doctor s visit. Bring all medications you take, including over the counter medications, herbals and other supplements with you to your doctor s visit. Patients and families are reminded to discard old lists and to update any records with all medication providers or retail pharmacies. Education Materials FAQs about Surgical SiteInfections (frequently asked questions) What is a Surgical Site Infection (SSI)? A surgical site infection is an infection that occurs after surgery in the part of the body where the surgery took place. Most patients who have surgery do not develop an infection. However, infections develop in about 1 to 3 out of every 100 patients who have surgery. Some of the common symptoms of a surgical site infection are: Redness and pain around the area where you had surgery Drainage of cloudy fluid from your surgical wound Fever Can SSIs be treated? Yes. Most surgical site infections can be treated with antibiotics. The antibiotic given to you depends on the bacteria (germs) causing the infection. Sometimes patients with SSIs also need another surgery to treat the infection. What are some of the things that hospitals are doing to prevent SSIs? To prevent SSIs, doctors, nurses, and other healthcare providers: Clean their hands and arms up to their elbows with an antiseptic agent just before the surgery. Clean their hands with soap and water or an alcohol-based hand rub before and after caring for eachpatient. May remove some of your hair immediately before your surgery using electric clippers if the hair isin the same area where the pro cedure will occur. They should not shave you with a razor. Wear special hair covers, masks, gowns, and gloves during surgery to keep the surgery area clean. Give you antibiotics before your surgery starts. In most cases, you should get antibiotics within 60 minutes before the surgery starts and the antibiotics should be stopped within 24 hours after surgery. Clean the skin at the site of your surgery with a special soap that kills germs. What can I do to help prevent SSIs? Before your surgery: Tell your doctor about other medical problems you may have. Health problems such as allergies, diabetes, and obesity could af fect your surgery and your treatment. Quit smoking. Patients who smoke get more infections. Talk to your doctor about how you can quit before your surgery. Do not shave near where you will have surgery. Shaving with a razor can irritate your skin and makeit easier to develop an infection. At the time of your surgery: Speak up if someone tries to shave you with a razor before surgery. Ask why you need to be shaved and talk with your surgeon if you have any concerns. Ask if you will get antibiotics before surgery. After your surgery: * Make sure that your healthcare providers clean their hands before examining you, either with soapand water or an alcohol-based hand rub. Family and friends who visit you should not touch the surgical wound or dressings. Family and friends should clean their hands with soap and water or an alcohol- based hand rub beforeand after visiting you. If you do not see them clean their hands, ask them to clean their hands. If you do not see your providers clean their hands, please ask them to do so. What do I need to do when I go home from the hospital? Before you go home, your doctor or nurse should explain everything you need to know about taking care of your wound. Make sure you understand how to care for your wound before you leave the hospital. Always clean your hands before and after caring for your wound. Before you go home, make sure you know who to contact if you have questions or problems after you get home. If you have any symptoms of an infection, such as redness and pain at the surgery site, drainage, or fever, call your doctor immediately. If you have questions, please ask your doctor or nurse. Co-sponsered by: DINESH, IDSA, AHA, APIC, CDC, The Joint Commission Additional Information VACCINATE! IT SAVES LIVES! Members of the community who have not yet received the COVID-19 vaccine and would like to receive it can visit one of [facility] vaccine clinics. There are many vaccine clinic locations within the [facility]. For locations and available times, please visit [email or web address].[place].gov/. It is important to note that some COVID mobile vaccine clinics are held outdoors and may be canceled in rainy or stormy conditions. To learn more about pediatric vaccinations (ages 5-11), we invite you to visit the [employer] webpage. [email or web address] learn more about the COVID-19 vaccine, we invite you to visit the CDC website for a list of frequently asked questions.https://www.cdc.gov/coronavirus/2019-ncov/vaccines/faq.html [facility] Patient Portal Access Instructions: Stay connected with your healthcare team and access your personal medical information anytime with the [facility] Patient Portal. Please follow the directions below to create your [facility] account: 1.Access the email account you provided upon registration to the hospital/physician office.2.Look for an invitation email from [facility].3.Open the email and access the invitation link: AcceptInvitation to [employer].4.Fill in the required buchanan to create your account. To access your account, visit [employer]. Click the blue button labeled Access Patient Portal and then log in with the username and password that you created in the steps above. You will be able to view your test results, lab results, a summary of your visits, upcoming appointments and more. There is also a convenient messaging option where you can send secure messages to your p rovider. In addition, you will have the ability to download any documents or summaries to your computer and/or send the information securely to a physician. Remember that your healthcare information is confidential, so carefully consider who you will allowto register on the [facility] Patient Portal for access to your information. You can also access the [facility] Patient Portal on the [employer] [employer]. Simply click on Patient Portal and then log into your account. If you would like to receive a full copy of your medical records, please contact the [facility] Medical Records Department by calling [phone], Thursday through Thursday between 8 a.m. and 4:30 p.m. HOW TO SAFELY DISPOSE OF PRESCRIPTION MEDICATIONS Please use one of the following methods to safely dispose of your unused medications. 1.Use a drug disposal kit: the drug disposal pouch allows you to safely discard your old and unuseddrugs. Ask your nurse to give you one when you are discharged.2.Visit a local take-back location: Many local pharmacies and police departments have programs that collect old and unwanted prescriptiondrugs. Call your local pharmacy or go to http://[employer]/5Z7Ss1y to find one close to you.3.Make use of household items: Use cat litter or old coffee grounds to dispose medications if other options arenot available. Mix your drugs with these household products, seal them in an airtight container andthrow it into the garbage. Call [facility]: [phone] to be sure your drugs can be disposed of in this way. Some medicines may require a different approach.4.Never flush your medications down the toilet. IF YOU HAVE BEEN PRESCRIBED AN OPIOID FOR PAIN If you have been prescribed an opioid (such as hydrocodone, oxycodone or morphine), it is critical to understand the possible side effects and risks of opioid pain medications. Even when taken as directed, opioids can have several side effects including: Tolerance, meaning you might need to take more of a medication for the same pain relief. Nausea, vomiting and/or constipation. Sleepiness, dizziness, dry mouth, confusion, depression or itching. Physical dependence, meaning you have withdrawal symptoms when a medication is stopped, can develop within a few days. KNOW YOUR RESPONSIBILITIES It is important to know exactly how much and how often to take the opioid pain medications you are prescribed. Never take opioids in higher amounts or more often than prescribed. Do not combine opioids with alcohol or other drugs that cause drowsiness, such as benzodiazepines, also known as benzos, including diazepam and alprazolam, muscle relaxants or sleep aids. Never sell or share prescription opioids. This is illegal. Store opioids in a secure place and out of reach of others (including children, family, friends and visitors). The last page of this document has been signed and retained as a CHART COPY. Signatures Patient Education Materials 6- FAQ about SSI (09/07 IC) (CUSTOM) Medication Leaflets My discharge plan and instructions have been reviewed and explained to me and I,REJI VICTOR understand my current condition and have read and understand these discharge instructions. I have received a written copy of the plan/instructions. If I have questions, I am aware that I should contactmy doctor. 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 Prior to surgery, he had complaints of low back pain as well as pain radiating into both hips and down his legs to his knees. He also complained of numbness and tingling in his legs and feet with weakness in his legs. 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 Kapoor. Please see Dr. Kapoor's operative note for further details regarding the surgical procedure. Postoperatively, he states his legs feel much improved. He denies any numbness or tingling in his lower extremities. He denies any pain radiating down his legs. On exam this morning, he is sitting up in chair. He seems a little more tired today, but recently had pain medication, which he states makes him a little tired. Yesterday, he walked around the nursing unit several times. He states his legs do feel improved, with walking. He is complaining of incisional pain. Dorsiflexion and plantarflexion are strong. He is able to extend both legs against resistance. Light touch sensation is intact. His lumbar dressing is dry and intact. No drainage noted. JUANY drain 20 cc on afternoon shift; 40 cc overnight. JUANY drain output is thin and serosanguineous. Dr. Kapoor mentioned that during the surgical procedure, his dura was thin, and therefore was concerned that he could develop a CSF leak. Therefore, since the drainage is starting to look thinner, JUANY drain will be removed, and his incision and JUANY drain site will be evaluated later this afternoon to makesure he has not developed any leak from the drain site concerning for CSF. Patient has denied a headache. He has had no other signs of CSF leak. He states he is able to eat and drink without any nausea or vomiting. He is voiding without difficulty. He denies any acute changes or concerns. Overall, he is doing well and expect him to be discharged later today after his incision and drain sites are evaluated. Was explained to him, that he needs to stay for another 4 hours or so to ensurehe does not have the drainage or fluid collection from the drain site or incision. Patient stated understanding and is in agreement with this plan. His discharge instructions and restrictions are provided for him. His follow-up appointment has been arranged. Instructed to call the office if he develops fever, chills, numbness, incision, or drainage from the incision. Allergies Tape RASH Vicodin VOMITTING Consults No qualifying data available. Objective Vitals and Measurements T: 37.3 C (Oral) TMIN: 36.5 C (Axillary) TMAX: 37.8 C (Oral) HR: 72 RR: 18 BP: 122/62 SpO2: 92% Weight Dosing Weight: 108.1 kg (12/08/23) Dosing Weight: 108.1 kg (12/08/23) Code Status Code Status - Ordered -- 12/08/23 19:17:00 EDT, Full Code, Constant Order Admission Date 12/08/23 Discharge Date 12/10/23 Patient Instructions No aspirin, multivitamins, or NSAIDs (no Aleve, Motrin, Ibuprofen, Naproxen, etc.) until cleared byneurosurgeon. You may restart your aspirin 81mg daily, 1 week after surgery. Otherwise, no additional aspriin, motrin, ibuprofen, aleve, or naproxen). No lifting more than 10 pounds. Avoid bending/twisting at the waist. No driving for at least 2 weeks; No driving while taking narcotics or muscle relaxants. Keep surgical incision clean and dry at all times until healed (about 2 weeks postoperatively). Maintain surgical dressing over incision for 7 days postoperatively as it is embedded with an antibiotic. After 1 week postop, remove dressing and begin to change daily using dry sterile gauze for about 7-10 days. May leave open to air once fulled healed. Okay to shower, but cover surgical incision with watertight dressing until healed (about 2 weeks postoperatively) No soaking incision site for 6 weeks postoperatively (No tub baths, hot tubs, saunas, swimming, etc.) If surgical incision site becomes red, swollen, painful, opens and/or drainage around site or if you develop a fever- Contact neurosurgery office immediately. Medications Unchanged albuterol (Albuterol (Eqv-Ventolin HFA) 90 mcg/inh inhalation aerosol)1 puff(s) by inhalation four (4) times a day as needed NEEDED FOR WHEEZING for 30 Days. Refills: 0. aspirin (Aspirin Low Dose 81 mg oral tablet, chewable)1 tab(s) by mouth once a day. Refills: 0. atorvastatin (atorvastatin 40 mg oral tablet)1 tab(s) by mouth once a day. Refills: 0. docusate (Colace 100 mg oral capsule)1 cap by mouth two (2) times a day as needed as needed for constipation. Refills: 0. ergocalciferol (ergocalciferol 50,000 intl units (1.25 mg) oral capsule)1 cap by mouth every week. ON THU. Refills: 0. gabapentin (gabapentin 300 mg oral capsule)1 cap by mouth three (3) times a day. Refills: 0. hydroCHLOROthiazide (hydroCHLOROthiazide 25 mg oral tablet)1 tab(s) by mouth once a day. Refills: 0. hyoscyamine (hyoscyamine 0.125 mg sublingual tablet)1 tab(s) under the tongue four (4) times a day for [address] 1 tablet under the tongue and ALLOW to dissolve before meals and at bedtime. Refills: 0. lidocaine topical (lidocaine 5% topical patch)APPLY TO AFFECTED AREA DAILY REMOVE PATCHES AFTER 12 HOURS- ONLY USES NEEDED. Refills: 0. magnesium oxide (magnesium oxide 400 mg oral tablet)1 tab(s) by mouth once a day. meloxicam (meloxicam 15 mg oral tablet)1 tab(s) by mouth once a day. metFORMIN (metFORMIN 500 mg oral tablet (IR))1 tab(s) by mouth once a day. Refills: 0. mupirocin topical (mupirocin 2% topical ointment)1 application Topical two (2) times a day. Bilateral intranasal application twice daily for 5 days prior to surgery &/or as many days leading up to surgery as possible due to surgical urgency/scheduling. Send to patient's preferred pharmacy.. Refills: 0. omeprazole (omeprazole 40 mg oral delayed release capsule)1 cap by mouth once a day for 90 Days. Refills: 0. tiotropium (Spiriva Respimat 1.25 mcg/inh inhalation aerosol)2 puff(s) by inhalation once a day. tiZANidine (tiZANidine 4 mg oral tablet)1 tab(s) by mouth every 8 hours as needed NEEDED FOR MUSCLE SPASM. Refills: 0. traZODone (traZODone 100 mg oral tablet)2 tab(s) by mouth daily at bedtime for 90 Days. Refills: 0. Follow Up Follow Up with ORIN BRADFORD, Neurosurgery When:12/21/2023 09:15 AM EDT Where:[address] [place] [phone] Follow Up Appointments See above Follow Up Labs/Studies Discharge Labs No Follow-up Labs Discharge Studies No Follow-up Studies Discharge Diet Resume diet Discharge Activity See above Condition on Discharge Stable Readmission Risk/Palliative Score LACE Score: 8 (12/09/23 10:33:00) Palliative Total Score: 1 (12/09/23 10:33:00) Discharge Disposition Home Information Provided To Patient Time Spent 15 min Digitally Signed by HOWIE PASCAL on 12/10/2023 11:12 AM Digitally Signed by FALLON KAPOOR MD on 12/10/2023 01:10 PM [id number] Discharge summary Date of Service 12/10/2023 Discharge Diagnosis Hyperlipidemia (E78.5 - ICD-10-CM) Prediabetes (R73.03 - ICD-10-CM) Additional Orders: Ordered: Discontinue Order,12/10/23 7:50:00 EDT, Once, JUANY drain-please remove first thing this morning., 12/10/23 7:50:00 EDT Hospital Course This is a 48-year-old male, who was admitted for an L4-5 laminectomy. Prior to surgery, he had complaints of low back pain as well as pain radiating into both hips and down his legs to his knees. He also complained of numbness and tingling in his legs and feet with weakness in his legs. 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 Kapoor. Please see Dr. Kapoor's operative note for further details regarding the surgical procedure. Postoperatively, he states his legs feel much improved. He denies any numbness or tingling in his lower extremities. He denies any pain radiating down his legs. On exam this morning, he is sitting up in chair. He seems a little more tired today, but recently had pain medication, which he states makes him a little tired. Yesterday, he walked around the nursing unit several times. He states his legs do feel improved, with walking. He is complaining of incisional pain. Dorsiflexion and plantarflexion are strong. He is able to extend both legs against resistance. Light touch sensation is intact. His lumbar dressing is dry and intact. No drainage noted. JUANY drain 20 cc on afternoon shift; 40 cc overnight. JUANY drain output is thin and serosanguineous. Dr. Kapoor mentioned that during the surgical procedure, his dura was thin, and therefore was concerned that he could develop a CSF leak. Therefore, since the drainage is starting to look thinner, JUANY drain will be removed, and his incision and JUANY drain site will be evaluated later this afternoon to make sure he has not developed any leak from the drain site concerning for CSF. Patient has denied a headache. He has had no other signs of CSF leak. He states he is able to eat and drink without any nausea or vomiting. He is voiding without difficulty. He denies any acute changes or concerns. Overall, he is doing well and expect him to be discharged later today after his incision and drain sites are evaluated. Was explained to him, that he needs to stay for another 4 hours or so to ensurehe does not have the drainage or fluid collection from the drain site or incision. Patient stated understanding and is in agreement with this plan. His discharge instructions and restrictions are provided for him. His follow-up appointment has been arranged. Instructed to call the office if he develops fever, chills, numbness, incision, or drainage from the incision. Allergies Tape RASH Vicodin VOMITTING Consults No qualifying data available. Objective Vitals and Measurements T: 37.3 C (Oral) TMIN: 36.5 C (Axillary) TMAX: 37.8 C (Oral) HR: 72 RR: 18 BP: 122/62 SpO2: 92% Weight Dosing Weight: 108.1 kg (12/08/23) Dosing Weight: 108.1 kg (12/08/23) Code Status Code Status - Ordered -- 12/08/23 19:17:00 EDT, Full Code, Constant Order Admission Date 12/08/23 Discharge Date 12/10/23 Patient Instructions No aspirin, multivitamins, or NSAIDs (no Aleve, Motrin, Ibuprofen, Naproxen, etc.) until cleared byneurosurgeon. You may restart your aspirin 81mg daily, 1 week after surgery. Otherwise, no additional aspriin, motrin, ibuprofen, aleve, or naproxen). No lifting more than 10 pounds. Avoid bending/twisting at the waist. No driving for at least 2 weeks; No driving while taking narcotics or muscle relaxants. Keep surgical incision clean and dry at all times until healed (about 2 weeks postoperatively). Maintain surgical dressing over incision for 7 days postoperatively as it is embedded with an antibiotic. After 1 week postop, remove dressing and begin to change daily using dry sterile gauze for about 7-10 days. May leave open to air once fulled healed. Okay to shower, but cover surgical incision with watertight dressing until healed (about 2 weeks postoperatively) No soaking incision site for 6 weeks postoperatively (No tub baths, hot tubs, saunas, swimming, etc.) If surgical incision site becomes red, swollen, painful, opens and/or drainage around site or if you develop a fever- Contact neurosurgery office immediately. Medications Unchanged albuterol (Albuterol (Eqv-Ventolin HFA) 90 mcg/inh inhalation aerosol)1 puff(s) by inhalation four (4) times a day as needed NEEDED FOR WHEEZING for 30 Days. Refills: 0. aspirin (Aspirin Low Dose 81 mg oral tablet, chewable)1 tab(s) by mouth once a day. Refills: 0. atorvastatin (atorvastatin 40 mg oral tablet)1 tab(s) by mouth once a day. Refills: 0. docusate (Colace 100 mg oral capsule)1 cap by mouth two (2) times a day as needed as needed for constipation. Refills: 0. ergocalciferol (ergocalciferol 50,000 intl units (1.25 mg) oral capsule)1 cap by mouth every week. ON THU. Refills: 0. gabapentin (gabapentin 300 mg oral capsule)1 cap by mouth three (3) times a day. Refills: 0. hydroCHLOROthiazide (hydroCHLOROthiazide 25 mg oral tablet)1 tab(s) by mouth once a day. Refills: 0. hyoscyamine (hyoscyamine 0.125 mg sublingual tablet)1 tab(s) under the tongue four (4) times a day for [address] 1 tablet under the tongue and ALLOW to dissolve before meals and at bedtime. Refills: 0. lidocaine topical (lidocaine 5% topical patch)APPLY TO AFFECTED AREA DAILY REMOVE PATCHES AFTER 12 HOURS- ONLY USES NEEDED. Refills: 0. magnesium oxide (magnesium oxide 400 mg oral tablet)1 tab(s) by mouth once a day. meloxicam (meloxicam 15 mg oral tablet)1 tab(s) by mouth once a day. metFORMIN (metFORMIN 500 mg oral tablet (IR))1 tab(s) by mouth once a day. Refills: 0. mupirocin topical (mupirocin 2% topical ointment)1 application Topical two (2) times a day. Bilateral intranasal application twice daily for 5 days prior to surgery &/or as many days leading up to surgery as possible due to surgical urgency/scheduling. Send to patient's preferred pharmacy.. Refills: 0. omeprazole (omeprazole 40 mg oral delayed release capsule)1 cap by mouth once a day for 90 Days. Refills: 0. tiotropium (Spiriva Respimat 1.25 mcg/inh inhalation aerosol)2 puff(s) by inhalation once a day. tiZANidine (tiZANidine 4 mg oral tablet)1 tab(s) by mouth every 8 hours as needed NEEDED FOR MUSCLE SPASM. Refills: 0. traZODone (traZODone 100 mg oral tablet)2 tab(s) by mouth daily at bedtime for 90 Days. Refills: 0. Follow Up Follow Up with ORIN BRADFORD, Neurosurgery When:12/21/2023 09:15 AM EDT Where:[address] [address]- [phone] Follow Up Appointments See above Follow Up Labs/Studies Discharge Labs No Follow-up Labs Discharge Studies No Follow-up Studies Discharge Diet Resume diet Discharge Activity See above Condition on Discharge Stable Readmission Risk/Palliative Score LACE Score: 8 (12/09/23 10:33:00) Palliative Total Score: 1 (12/09/23 10:33:00) Discharge Disposition Home Information Provided To Patient Time Spent 15 min Digitally Signed by HOWIE PASCAL on 12/10/2023 11:12 AM Digitally Signed by FALLON KAPOOR MD on 12/10/2023 01:10 PM [id number] Discharge summary Date of Service 12/10/2023 Discharge Diagnosis Hyperlipidemia (E78.5 - ICD-10-CM) Prediabetes (R73.03 - ICD-10-CM) Additional Orders: Ordered: Discontinue Order,12/10/23 7:50:00 EDT, Once, JUANY drain-please remove first thing this morning., 12/10/23 7:50:00 EDT Hospital Course This is a 48-year-old male, who was admitted for an L4-5 laminectomy. Prior to surgery, he had complaints of low back pain as well as pain radiating into both hips and down his legs to his knees. He also complained of numbness and tingling in his legs and feet with weakness in his legs. 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 Kapoor. Please see Dr. Kapoor's operative note for further details regarding the surgical procedure. Postoperatively, he states his legs feel much improved. He denies any numbness or tingling in his lower extremities. He denies any pain radiating down his legs. On exam this morning, he is sitting up in chair. He seems a little more tired today, but recently had pain medication, which he states makes him a little tired. Yesterday, he walked around the nursing unit several times. He states his legs do feel improved, with walking. He is complaining of incisional pain. Dorsiflexion and plantarflexion are strong. He is able to extend both legs against resistance. Light touch sensation is intact. His lumbar dressing is dry and intact. No drainage noted. JUANY drain 20 cc on afternoon shift; 40 cc overnight. JUANY drain output is thin and serosanguineous. Dr. Kapoor mentioned that during the surgical procedure, his dura was thin, and therefore was concerned that he could develop a CSF leak. Therefore, since the drainage is starting to look thinner, JUANY drain will be removed, and his incision and JUANY drain site will be evaluated later this afternoon to makesure he has not developed any leak from the drain site concerning for CSF. Patient has denied a headache. He has had no other signs of CSF leak. He states he is able to eat and drink without any nausea or vomiting. He is voiding without difficulty. He denies any acute changes or concerns. Overall, he is doing well and expect him to be discharged later today after his incision and drain sites are evaluated. Was explained to him, that he needs to stay for another 4 hours or so to ensurehe does not have the drainage or fluid collection from the drain site or incision. Patient stated understanding and is in agreement with this plan. His discharge instructions and restrictions are provided for him. His follow-up appointment has been arranged. Instructed to call the office if he develops fever, chills, numbness, incision, or drainage from the incision. Allergies Tape RASH Vicodin VOMITTING Consults No qualifying data available. Objective Vitals and Measurements T: 37.3 C (Oral) TMIN: 36.5 C (Axillary) TMAX: 37.8 C (Oral) HR: 72 RR: 18 BP: 122/62 SpO2: 92% Weight Dosing Weight: 108.1 kg (12/08/23) Dosing Weight: 108.1 kg (12/08/23) Code Status Code Status - Ordered -- 12/08/23 19:17:00 EDT, Full Code, Constant Order Admission Date 12/08/23 Discharge Date 12/10/23 Patient Instructions No aspirin, multivitamins, or NSAIDs (no Aleve, Motrin, Ibuprofen, Naproxen, etc.) until cleared byneurosurgeon. You may restart your aspirin 81mg daily, 1 week after surgery. Otherwise, no additional aspriin, motrin, ibuprofen, aleve, or naproxen). No lifting more than 10 pounds. Avoid bending/twisting at the waist. No driving for at least 2 weeks; No driving while taking narcotics or muscle relaxants. Keep surgical incision clean and dry at all times until healed (about 2 weeks postoperatively). Maintain surgical dressing over incision for 7 days postoperatively as it is embedded with an antibiotic. After 1 week postop, remove dressing and begin to change daily using dry sterile gauze for about 7-10 days. May leave open to air once fulled healed. Okay to shower, but cover surgical incision with watertight dressing until healed (about 2 weeks postoperatively) No soaking incision site for 6 weeks postoperatively (No tub baths, hot tubs, saunas, swimming, etc.) If surgical incision site becomes red, swollen, painful, opens and/or drainage around site or if you develop a fever- Contact neurosurgery office immediately. Medications Unchanged albuterol (Albuterol (Eqv-Ventolin HFA) 90 mcg/inh inhalation aerosol)1 puff(s) by inhalation four (4) times a day as needed NEEDED FOR WHEEZING for 30 Days. Refills: 0. aspirin (Aspirin Low Dose 81 mg oral tablet, chewable)1 tab(s) by mouth once a day. Refills: 0. atorvastatin (atorvastatin 40 mg oral tablet)1 tab(s) by mouth once a day. Refills: 0. docusate (Colace 100 mg oral capsule)1 cap by mouth two (2) times a day as needed as needed for constipation. Refills: 0. ergocalciferol (ergocalciferol 50,000 intl units (1.25 mg) oral capsule)1 cap by mouth every week. ON THU. Refills: 0. gabapentin (gabapentin 300 mg oral capsule)1 cap by mouth three (3) times a day. Refills: 0. hydroCHLOROthiazide (hydroCHLOROthiazide 25 mg oral tablet)1 tab(s) by mouth once a day. Refills: 0. hyoscyamine (hyoscyamine 0.125 mg sublingual tablet)1 tab(s) under the tongue four (4) times a day for [address] 1 tablet under the tongue and ALLOW to dissolve before meals and at bedtime. Refills: 0. lidocaine topical (lidocaine 5% topical patch)APPLY TO AFFECTED AREA DAILY REMOVE PATCHES AFTER 12 HOURS- ONLY USES NEEDED. Refills: 0. magnesium oxide (magnesium oxide 400 mg oral tablet)1 tab(s) by mouth once a day. meloxicam (meloxicam 15 mg oral tablet)1 tab(s) by mouth once a day. metFORMIN (metFORMIN 500 mg oral tablet (IR))1 tab(s) by mouth once a day. Refills: 0. mupirocin topical (mupirocin 2% topical ointment)1 application Topical two (2) times a day. Bilateral intranasal application twice daily for 5 days prior to surgery &/or as many days leading up to surgery as possible due to surgical urgency/scheduling. Send to patient's preferred pharmacy.. Refills: 0. omeprazole (omeprazole 40 mg oral delayed release capsule)1 cap by mouth once a day for 90 Days. Refills: 0. tiotropium (Spiriva Respimat 1.25 mcg/inh inhalation aerosol)2 puff(s) by inhalation once a day. tiZANidine (tiZANidine 4 mg oral tablet)1 tab(s) by mouth every 8 hours as needed NEEDED FOR MUSCLE SPASM. Refills: 0. traZODone (traZODone 100 mg oral tablet)2 tab(s) by mouth daily at bedtime for 90 Days. Refills: 0. Follow Up Follow Up with ORIN BRADFORD, Neurosurgery When:12/21/2023 09:15 AM EDT Where:[address] [facility] [address] [place] [address]- [phone] Follow Up Appointments See above Follow Up Labs/Studies Discharge Labs No Follow-up Labs Discharge Studies No Follow-up Studies Discharge Diet Resume diet Discharge Activity See above Condition on Discharge Stable Readmission Risk/Palliative Score LACE Score: 8 (12/09/23 10:33:00) Palliative Total Score: 1 (12/09/23 10:33:00) Discharge Disposition Home Information Provided To Patient Time Spent 15 min Digitally Signed by HOWIE PASCAL on 12/10/2023 11:12 AM Digitally Signed by FALLON KAPOOR MD on 12/10/2023 01:10 PM [id number] Progress note Date of Service 12/09/2023 Chief Complaint LUMBAR 4 THROUGH SACRAL 1 LAMINECTOMY WITH BILATERAL FORAMINOTOMIES- Post-op day #1/ This is a 48-year-old male, who was admitted for an L4-5 laminectomy. Prior to surgery, he had complaints of low back pain as well as pain radiating into both hips and down his legs to his knees. He also complains of numbness and tingling in his legs and feet with weakness in his legs. 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 Kapoor. Postoperatively, he states his legs feel much improved. He denies any numbness or tingling in his lower extremities. He denies any pain radiating down his legs. On exam this morning, he is sitting up in chair. He states he is already gone [facility] a walk [facility]. Dorsiflexion and plantarflexion are strong. He is able to extend both legs against resistance. Light touch sensation is intact. His lumbar dressing is dry and intact. No drainage noted. JUANY drain 10 cc on afternoon shift; 50 cc overnight. He states he is able to eat and drink without any nausea or vomiting. He is voiding without difficulty. He denies any acute changes or concerns. Objective Vitals and Measurements T: 36.7 C (Oral) TMIN: 36 C TMAX: 37.0 C (Oral) HR: 70 RR: 20 BP: 100/63 SpO2: 91% HT: 177.8 cm WT:108.1 kg BMI: 34.19 Intake and Output 7AM Yesterday to 7AM Today Intake and Output (Last 24 hours) Intake Administration Information 1920.00 Oral Intake 720.00 Output Surgical Drain, Tube Output: 400.00 Urine Voided 850.00 Intra-Op Urine Catheter 200.00 Intra-Op EBL 30.00 Stool Count 0.00 Urine Count 2.00 Diaper Count 0.00 Emesis Count 0.00 Total Summary Total Intake 2640.00 Total Output 1480.00 Fluid Balance 1160.00 Physical Exam Weight Dosing Weight: 108.1 kg (12/08/23) Dosing Weight: 108.1 kg (12/08/23) Medications Medications (27) Active Scheduled: (13) atorvastatin 40 mg tablet 40 mg 1 tab(s), Oral, qDay ceFAZolin 1 gram(s) 10 mL, Topical (INT), PREOP pharm ceFAZolin syringe 2 gram(s) 20 mL, IV Push (INT), q6hr docusate-senna (Senokot S) 50 mg-8.6 mg Tablet 1 tab(s), Oral, BID gabapentin 300 mg Capsule 300 mg 1 cap(s), Oral, TID hydrochlorothiazide 25 mg tablet 25 mg 1 tab(s), Oral, qDay hyoscyamine 0.125 mg sublingual tablet 0.125 mg 1 tab(s), Sublingual, QID ipratropium 0.02% (0.5mg/2.5mL) UD 0.5 mg 2.5 mL, Inhalation, QIDRT lidocaine patch REMOVAL 1 EA, Miscellaneous, q24h lidocaine topical 4% patch 1 patch(es), Transdermal, q24h metformin 500 mg Tablet 500 mg 1 tab(s), Oral, qDay omeprazole [address] capsule 40 mg 1 cap(s), Oral, qDay traZODONE 100 mg Tablet 200 mg 2 tab(s), Oral, qHS Continuous: (2) NS (0.9% nacl) 1,000 mL 1,000 mL, Intravenous, 20 mL/hr NS (0.9% nacl) 1,000 mL 1,000 mL, Intravenous, 75 mL/hr PRN: (12) acetaminophen 325 mg Tablet 650 mg 2 tab(s), Oral, q4h acetaminophen-OXYcodone 325 mg-5 mg Tablet 1 tab(s), Oral, q4h acetaminophen-OXYcodone 325 mg-5 mg Tablet 2 tab(s), Oral, q4h Al hydrox/Mg hydrox/simethicone 200-200-20 mg/5 mL Susp UD 30 mL, Oral, q2h albuterol 0.083% Soln UD (2.5mg/3 mL) 2.5 mg 3 mL, Inhalation, q6hRT benzocaine-menthol (Cepacol Sore Throat) 15 mg-3.6mg lozenge 1 lozenge(s), Oral, q2h dextrose 50% Solution Disp syringe 50 mL 12.5 gram(s) 25 mL, IV Push, AsDirected docusate sodium 100 mg Capsule 100 mg 1 cap(s), Oral, BID HYDROmorphone 0.5 mg/0.5 mL PF syringe 0.2 mg 0.2 mL, IV Push, q2h ondansetron 2 mg/ 1 mL 2 mL INJ 4 mg 2 mL, IV Push, q4h polyethylene glycol 3350 - UD packet 17 gram(s) 15 mL, Oral, qDay tiZANidine 4 mg tablet 4 mg 1 tab(s), Oral, TID Lab Results No 36 Hour Lab Data EKG No qualifying data available. Assessment/Plan 4 THROUGH SACRAL 1 LAMINECTOMY WITH BILATERAL FORAMINOTOMIES: -Patient's postop day 1 from an L4-S1 laminectomy with bilateral foraminotomies. -He is doing very well postoperatively. This morning he is sitting up in chair and has already mobilized in the hallway. His lower extremity numbness, tingling, and pain is gone postoperatively. He is complaining of some incisional pain, but the pain medication does seem to be helping. He is currently taking Percocet and tizanidine for muscle relaxer. -Drain output was 50 cc overnight. Will reevaluate the drain output this afternoon. Discussed with him, if it is less than 30 cc, he will be able to be discharged home. -He will be placed in a pressure dressing and binder. -IV fulids can be adapated, as he is tolerating diet well. -Encouraged to continue to mobilize. -His follow-up appointment has been arranged in 2 weeks, if he is to be discharged home today. Thiswill be provided for him. See Dr. Kapoor's addendum for further details recommendations. Anticipated Date of Discharge Today or tomorrow depending on drain output. Time Spent 15 min Digitally Signed by HOWIE PASCAL on 12/09/2023 09:30 AM Digitally Signed by FALLON KAPOOR MD on 12/09/2023 09:40 AM [id number] Anesthesiology Consult note Patient: REJI VICTOR Age: 48 years Sex: Male : 1975 Associated Diagnoses: None Author: GUANAKITO BOSCH MD Postoperative Information Post Operative Info: Post op day: Post Anesthesia Care Unit. Patient location: PACU. Assessment Postanesthesia assessment Vitals: Vital signs from flowsheet : Vital Signs 12/08/2023 13:15 EDT Temperature Temporal Artery 36.1 DegC Heart Rate Monitored 84 bpm Respiratory Rate 18 br/min Systolic Blood Pressure Non-Invasive 107 mmHg Diastolic Blood Pressure Non-Invasive 68 mmHg Mean Arterial Pressure (NBP) 81 mmHg 12/08/2023 13:00 EDT Heart Rate Monitored 90 bpm Respiratory Rate 18 br/min Systolic Blood Pressure Non-Invasive 113 mmHg Diastolic Blood Pressure Non-Invasive 77 mmHg Mean Arterial Pressure (NBP) 89 mmHg 12/08/2023 12:45 EDT Heart Rate Monitored 87 bpm Respiratory Rate 18 br/min Systolic Blood Pressure Non-Invasive 113 mmHg Diastolic Blood Pressure Non-Invasive 65 mmHg Mean Arterial Pressure (NBP) 77 mmHg 12/08/2023 12:30 EDT Temperature Temporal Artery 36.2 DegC Heart Rate Monitored 90 bpm Respiratory Rate 20 br/min Systolic Blood Pressure Non-Invasive 102 mmHg Diastolic Blood Pressure Non-Invasive 67 mmHg Mean Arterial Pressure (NBP) 79 mmHg 12/08/2023 12:26 EDT Systolic Blood Pressure Non-Invasive 97 mmHg mmHg Diastolic Blood Pressure Non-Invasive 66 mmHg mmHg 12/08/2023 12:25 EDT Heart Rate Monitored 90 bpm bpm Respiratory Rate - Anes 8 br/min br/min 12/08/2023 12:23 EDT Systolic Blood Pressure Non-Invasive 120 mmHg mmHg Diastolic Blood Pressure Non-Invasive 77 mmHg mmHg 12/08/2023 12:20 EDT Heart Rate Monitored 99 bpm bpm Respiratory Rate - Anes 23 br/min br/min 12/08/2023 12:19 EDT Systolic Blood Pressure Non-Invasive 129 mmHg mmHg Diastolic Blood Pressure Non-Invasive 116 mmHg mmHg 12/08/2023 12:17 EDT Systolic Blood Pressure Non-Invasive 114 mmHg mmHg Diastolic Blood Pressure Non-Invasive 72 mmHg mmHg 12/08/2023 12:15 EDT Heart Rate Monitored 85 bpm bpm Respiratory Rate - Anes 14 br/min br/min 12/08/2023 12:13 EDT Systolic Blood Pressure Non-Invasive 111 mmHg mmHg Diastolic Blood Pressure Non-Invasive 74 mmHg mmHg 12/08/2023 12:10 EDT Heart Rate Monitored 83 bpm bpm Respiratory Rate - Anes 10 br/min br/min Systolic Blood Pressure Non-Invasive 102 mmHg mmHg Diastolic Blood Pressure Non-Invasive 70 mmHg mmHg 12/08/2023 12:08 EDT Systolic Blood Pressure Non-Invasive 106 mmHg mmHg Diastolic Blood Pressure Non-Invasive 68 mmHg mmHg 12/08/2023 12:05 EDT Heart Rate Monitored 81 bpm bpm Respiratory Rate - Anes 10 br/min br/min Systolic Blood Pressure Non-Invasive 119 mmHg mmHg Diastolic Blood Pressure Non-Invasive 77 mmHg mmHg 12/08/2023 12:02 EDT Systolic Blood Pressure Non-Invasive 133 mmHg mmHg Diastolic Blood Pressure Non-Invasive 84 mmHg mmHg 12/08/2023 12:00 EDT Temperature (Route Not Specified) 36 DegC DegC Heart Rate Monitored 78 bpm bpm Respiratory Rate - Anes 10 br/min br/min 12/08/2023 11:59 EDT Systolic Blood Pressure Non-Invasive 89 mmHg mmHg Diastolic Blood Pressure Non-Invasive 61 mmHg mmHg 12/08/2023 11:56 EDT Systolic Blood Pressure Non-Invasive 100 mmHg mmHg Diastolic Blood Pressure Non-Invasive 64 mmHg mmHg 12/08/2023 11:55 EDT Heart Rate Monitored 82 bpm bpm Respiratory Rate - Anes 10 br/min br/min 12/08/2023 11:53 EDT Systolic Blood Pressure Non-Invasive 114 mmHg mmHg Diastolic Blood Pressure Non-Invasive 73 mmHg mmHg 12/08/2023 11:50 EDT Heart Rate Monitored 83 bpm bpm Respiratory Rate - Anes 11 br/min br/min Systolic Blood Pressure Non-Invasive 144 mmHg mmHg Diastolic Blood Pressure Non-Invasive 84 mmHg mmHg 12/08/2023 11:46 EDT Systolic Blood Pressure Non-Invasive 117 mmHg mmHg Diastolic Blood Pressure Non-Invasive 94 mmHg mmHg 12/08/2023 11:45 EDT Temperature (Route Not Specified) 36 DegC DegC Heart Rate Monitored 76 bpm bpm Respiratory Rate - Anes 10 br/min br/min 12/08/2023 11:44 EDT Systolic Blood Pressure Non-Invasive 85 mmHg mmHg Diastolic Blood Pressure Non-Invasive 61 mmHg mmHg 12/08/2023 11:40 EDT Heart Rate Monitored 77 bpm bpm Respiratory Rate - Anes 10 br/min br/min Systolic Blood Pressure Non-Invasive 118 mmHg mmHg Diastolic Blood Pressure Non-Invasive 70 mmHg mmHg 12/08/2023 11:38 EDT Systolic Blood Pressure Non-Invasive 89 mmHg mmHg Diastolic Blood Pressure Non-Invasive 65 mmHg mmHg 12/08/2023 11:35 EDT Heart Rate Monitored 79 bpm bpm Respiratory Rate - Anes 10 br/min br/min 12/08/2023 11:34 EDT Systolic Blood Pressure Non-Invasive 118 mmHg mmHg Diastolic Blood Pressure Non-Invasive 75 mmHg mmHg 12/08/2023 11:31 EDT Systolic Blood Pressure Non-Invasive 104 mmHg mmHg Diastolic Blood Pressure Non-Invasive 74 mmHg mmHg 12/08/2023 11:30 EDT Temperature (Route Not Specified) 36 DegC DegC Heart Rate Monitored 81 bpm bpm Respiratory Rate - Anes 10 br/min br/min 12/08/2023 11:28 EDT Systolic Blood Pressure Non-Invasive 89 mmHg mmHg Diastolic Blood Pressure Non-Invasive 63 mmHg mmHg 12/08/2023 11:25 EDT Heart Rate Monitored 83 bpm bpm Respiratory Rate - Anes 10 br/min br/min Systolic Blood Pressure Non-Invasive 105 mmHg mmHg Diastolic Blood Pressure Non-Invasive 70 mmHg mmHg 12/08/2023 11:23 EDT Systolic Blood Pressure Non-Invasive 94 mmHg mmHg Diastolic Blood Pressure Non-Invasive 65 mmHg mmHg 12/08/2023 11:20 EDT Heart Rate Monitored 93 bpm bpm Respiratory Rate - Anes 10 br/min br/min 12/08/2023 11:19 EDT Systolic Blood Pressure Non-Invasive 124 mmHg mmHg Diastolic Blood Pressure Non-Invasive 81 mmHg mmHg 12/08/2023 11:17 EDT Systolic Blood Pressure Non-Invasive 114 mmHg mmHg Diastolic Blood Pressure Non-Invasive 76 mmHg mmHg 12/08/2023 11:15 EDT Temperature (Route Not Specified) 36 DegC DegC Heart Rate Monitored 86 bpm bpm Respiratory Rate - Anes 12 br/min br/min 12/08/2023 11:13 EDT Systolic Blood Pressure Non-Invasive 122 mmHg mmHg Diastolic Blood Pressure Non-Invasive 84 mmHg mmHg 12/08/2023 11:10 EDT Heart Rate Monitored 91 bpm bpm Respiratory Rate - Anes 12 br/min br/min Systolic Blood Pressure Non-Invasive 104 mmHg mmHg Diastolic Blood Pressure Non-Invasive 71 mmHg mmHg 12/08/2023 11:08 EDT Systolic Blood Pressure Non-Invasive 115 mmHg mmHg Diastolic Blood Pressure Non-Invasive 76 mmHg mmHg 12/08/2023 11:05 EDT Heart Rate Monitored 94 bpm bpm Respiratory Rate - Anes 12 br/min br/min 12/08/2023 11:04 EDT Systolic Blood Pressure Non-Invasive 138 mmHg mmHg Diastolic Blood Pressure Non-Invasive 106 mmHg mmHg 12/08/2023 11:01 EDT Systolic Blood Pressure Non-Invasive 88 mmHg mmHg Diastolic Blood Pressure Non-Invasive 69 mmHg mmHg 12/08/2023 11:00 EDT Temperature (Route Not Specified) 36 DegC DegC Heart Rate Monitored 63 bpm bpm Respiratory Rate - Anes 10 br/min br/min 12/08/2023 10:58 EDT Systolic Blood Pressure Non-Invasive 96 mmHg mmHg Diastolic Blood Pressure Non-Invasive 62 mmHg mmHg 12/08/2023 10:55 EDT Heart Rate Monitored 59 bpm bpm Respiratory Rate - Anes 10 br/min br/min Systolic Blood Pressure Non-Invasive 82 mmHg mmHg Diastolic Blood Pressure Non-Invasive 54 mmHg mmHg 12/08/2023 10:52 EDT Systolic Blood Pressure Non-Invasive 86 mmHg mmHg Diastolic Blood Pressure Non-Invasive 65 mmHg mmHg 12/08/2023 10:50 EDT Heart Rate Monitored 60 bpm bpm Respiratory Rate - Anes 10 br/min br/min 12/08/2023 10:49 EDT Systolic Blood Pressure Non-Invasive 78 mmHg mmHg Diastolic Blood Pressure Non-Invasive 54 mmHg mmHg 12/08/2023 10:47 EDT Systolic Blood Pressure Non-Invasive 100 mmHg mmHg Diastolic Blood Pressure Non-Invasive 68 mmHg mmHg 12/08/2023 10:45 EDT Temperature (Route Not Specified) 36 DegC DegC Heart Rate Monitored 71 bpm bpm Respiratory Rate - Anes 10 br/min br/min 12/08/2023 10:44 EDT Systolic Blood Pressure Non-Invasive 130 mmHg mmHg Diastolic Blood Pressure Non-Invasive 81 mmHg mmHg 12/08/2023 10:40 EDT Heart Rate Monitored 78 bpm bpm Respiratory Rate - Anes 10 br/min br/min Systolic Blood Pressure Non-Invasive 112 mmHg mmHg Diastolic Blood Pressure Non-Invasive 74 mmHg mmHg 12/08/2023 10:37 EDT Respiratory Rate - Anes 10 br/min br/min Systolic Blood Pressure Non-Invasive 111 mmHg mmHg Diastolic Blood Pressure Non-Invasive 75 mmHg mmHg 12/08/2023 10:36 EDT Respiratory Rate - Anes 10 br/min br/min 12/08/2023 10:35 EDT Heart Rate Monitored 59 bpm bpm Respiratory Rate - Anes 10 br/min br/min (Modified) Systolic Blood Pressure Non-Invasive 88 mmHg mmHg Diastolic Blood Pressure Non-Invasive 56 mmHg mmHg 12/08/2023 10:32 EDT Respiratory Rate - Anes 16 br/min br/min Systolic Blood Pressure Non-Invasive 121 mmHg mmHg Diastolic Blood Pressure Non-Invasive 71 mmHg mmHg 12/08/2023 10:31 EDT Respiratory Rate - Anes 16 br/min br/min 12/08/2023 10:30 EDT Heart Rate Monitored 63 bpm bpm Respiratory Rate - Anes 16 br/min br/min (Modified) 12/08/2023 10:29 EDT Respiratory Rate - Anes 16 br/min br/min 12/08/2023 10:28 EDT Respiratory Rate - Anes 16 br/min br/min Systolic Blood Pressure Non-Invasive 116 mmHg mmHg Diastolic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 back pain, it is usually not caused by a serious illness. Pain is usually related to physical activity, whether sports, exercise, work, or normal activity. Sometimes it can occur without an identifiable cause. This can happen simply by stretching or moving wrong, without noting pain at the time. Other causes include: Overexertion, lifting, pushing, pulling incorrectly or too aggressively. Sudden twisting, bending or stretching from an accident (car or fall), or accidental movement. Poor posture Poor conditioning, lack of regular exercise Spinal disc disease or arthritis Stress , or illness like appendicitis, bladder or kidney infection, pelvic infections Home care For neck pain: Use a comfortable pillow that supports the head and keeps the spine in a neutral position. The position of the head should not be tilted forward or backward. When in bed, try to find a position of comfort. A firm mattress is best. Try lying flat on your back with pillows under your knees. You can also try lying on your side with your knees bent up towardsyour chest and a pillow between your knees. At first, do not try to stretch out the sore spots. If there is a strain, it is not like the good soreness you get after exercising without an injury. In this case, stretching may make it worse. Don't sit for long periods, as in long car rides or other travel. This puts more stress on the lower back than standing or walking. During the first 24 to 72 hours after an injury, apply an ice pack to the painful area for 20 minutes and then remove it for 20 minutes over a period of 60 to 90 minutes or several times a day. You can alternate ice and heat therapies. Talk with your healthcare provider about the best treatment for your back or neck pain. As a safety precaution, do not use a heating pad at bedtime. Sleepingwith a heating pad can lead to skin mccracken or tissue damage. Therapeutic massage can help relax the back and neck muscles without stretching them. Be aware of safe lifting methods and do not lift anything over 15 pounds until all the pain is gone. Medicines Talk to your healthcare provider before using medicine, especially if you have other medical problems or are taking other medicines. You may use nyuh-rre-ghcvbfy medicine to control pain, unless another pain medicine was prescribed.If you have chronic conditions like diabetes, liver or kidney disease, stomach ulcers, gastrointestinal bleeding, or are taking blood thinner medicines. Be careful if you are given pain medicines, narcotics, or medicine for muscle spasm. They can causedrowsiness, and can affect your coordination, reflexes, and judgment. Do not drive or operate heavymachiIterabley. Follow-up care Follow up with your healthcare provider, or as advised. Physical therapy or further tests may be needed. If X-rays were taken, you will be notified of any new findings that may affect your care. Call 911 Call 911 if any of the following occur: Trouble breathing Confusion Very drowsy or trouble awakening Fainting or loss of consciousness Rapid or very slow heart rate Loss of bowel or bladder control When to seek medical advice Call your healthcare provider right away if any of these occur: Pain becomes worse or spreads into your arms or legs Weakness, numbness or pain in one or both arms or legs Numbness in the groin area Difficulty walking Fever of 100.4 F (38 C) or higher, or as directed by your healthcare provider [id number] The Consumer Agent Portal (CAP). [address] [place] [address]. All rights reserved. This information is not intended as a substitute for professional medical care. Always follow yourhealthcare professional's instructions. Additional Information VACCINATE! IT SAVES LIVES! Members of the community who have not yet received the COVID-19 vaccine and would like to receive it can visit one of [facility] vaccine clinics. There are many vaccine clinic locations within the [facility]. For locations and available times, please visit [email or web address] It is important to note that some COVID mobile vaccine clinics are held outdoors and may be canceled in rainy or stormy conditions. To learn more about pediatric vaccinations (ages 5-11), we invite you to visit the [facility] webpage. [email or web address]/[email or web address] [email or web address] learn more about the COVID-19 vaccine, we invite you to visit the CDC website for a list of frequently asked questions. https://www.cdc.gov/coronavirus/2019-ncov/vaccines/faq.html [facility] Patient Portal Access Instructions: Stay connected with your healthcare team and access your personal medical information anytime with the [facility] Patient Portal. If you would like a full copy of your medical records please contact the [facility] Medical Records Department Thursday through Thursday between 8a.m. and 4:30p.m. Please follow the directions below to access the portal: 1.Access the email account you provided upon registration to the [facility].2.Look for an invitation email from [facility].3.Open the email and access the invitation link: Accept Invitation to [facility] [facility]4.Fill in the required buchanan to create your account. Sign into [email or web address] with your username and password that you created in the above steps to stay up to date. You can then view a summary of results, a summary of your visits, and the ability to download your summaries to your computer or send the information securely to a physician. Remember that your healthcare information is confidential, so carefully consider who you will allow to register on the [facility] [facility] Patient Portal for access to your information. You can also access the [facility] [employer] Patient Portal on the [employer]. Simply click on Health Records under [facility] and then click on the [facility] logo. HOW TO SAFELY DISPOSE OF PRESCRIPTION MEDICATIONS Please use one of the following methods to safely dispose of your unused medications. 1.Use a drug disposal kit: the drug disposal pouch allows you to safely discard your old and unuseddrugs. Ask your nurse to give you one when you are discharged.2.Visit a local take-back location: Many local pharmacies and police departments have programs that collect old and unwanted prescriptiondrugs. Call your local pharmacy or go to http://[employer].eGifter/0O9Vs6s to find one close to you.3.Make use of household items: Use cat litter or old coffee grounds to dispose medications if other options arenot available. Mix your drugs with these household products, seal them in an airtight container andthrow it into the garbage. Call [facility]: [phone] to be sure your drugs can be disposed of in this way. Some medicines may require a different approach.4.Never flush your medications down the toilet. IF YOU HAVE BEEN PRESCRIBED AN OPIOIDS FOR PAIN If you have been prescribed an opioid (such as hydrocodone, oxycodone or morphine), it is critical to understand the possible side effects and risks of opioid pain medications. Even when taken as directed, opioids can have several side effects including: Tolerance, meaning you might need to take more of a medication for the same pain relief. Nausea, vomiting and/or constipation. Sleepiness, dizziness, dry mouth, confusion, depression or itching. Physical dependence, meaning you have withdrawal symptoms when a medication is stopped ? this can develop within a few days. KNOW YOUR RESPONSIBILITIES It is important to know exactly how much and how often to take the opioid pain medications you are prescribed. Never take opioids in higher amounts or more often than prescribed. Do not combine opioids with alcohol or other drugs that cause drowsiness, such as benzodiazepines, also known as benzos,including diazepam and alprazolam, muscle relaxants or sleep aids. Never sell or share prescriptionopioids. This is illegal. Store opioids in a secure place and out of reach of others (including children, family, friends and visitors). The last page(s) of this document has been signed and retained as a CHART COPY Signatures Patient Education Materials Back and Neck Pain, General Medication Leaflets My discharge plan and instructions have been reviewed and explained to me and I,REJI VICTOR understand my current condition and have read and understand these discharge instructions. I have received a written copy of the plan/instructions. If I have questions, I am aware that I should contactmy doctor. Patient/Neonatal Surgeon Signature: Date/Time: Relationship to Patient: Witness Name/Signature: Date/Time: [facility] [id number] Emergency department Discharge summary Discharge Instructions Thank you for allowing [facility] to assist you with your healthcare needs. The following is importantdischarge information regarding your hospital visit. Diagnosis from Today's Visit Back pain Back pain Flank pain muscle cramping What to Do Next Instructions from Your Care Team Follow-up with your neurologist in outpatient setting. Obtain an MRI when approved by insurance. Follow-up with your primary care physician 2 to 3 days. Take prescriptions as prescribed for pain control. Return with worsening symptoms or other concerns No qualifying data available. Post Acute Orders No qualifying data available. You Need to Schedule the Following Appointments Follow Up with KARISSA SALINAS DO, Internal Medicine When Within 2-4 days Where: [address] [facility] [address] [place] [address]- [phone] Allergies Tape Vicodin Medications Please ask your primary doctor or pharmacist before taking any other medication not listed, including over the counter drugs, herbal medications, vitamins and or supplements as they may interact withyour home medications. What How Much When Why Instructions Last Dose Unchanged albuterol (Albuterol (Eqv-Ventolin HFA) 90 mcg/ inh inhalation aerosol) 1 puff(s) by inhalation Four (4) times a day as needed for NEEDED FOR WHEEZING Duration: 30 Days Unchanged aspirin (Hipolito Childrens Aspirin 81 mg oral tablet, (chewable)) 1 tab(s) by mouth Once a day Duration: 90 Days Unchanged atorvastatin (atorvastatin 40 mg oral tablet) 1 tab(s) by mouth Every day Hyperlipidemia Unchanged docusate (Colace 100 mg oral capsule) 1 cap by mouth Two (2) times a day as needed for as needed for constipation Constipation Unchanged ergocalciferol (Vitamin D2 1.25 mg (50,000 intl units) oral capsule) 1 cap by mouth Every week Vitamin D deficiency Unchanged fluticasone-salmeterol (Advair Diskus 100 mcg-50 mcg inhalation powder) 1 puff(s) by inhalation Two (2) times a day Asthma Duration: 90 Days Unchanged gabapentin (gabapentin 300 mg oral capsule) 1 cap by mouth Three (3) times a day Neuropathic pain Duration: 30 Days Unchanged hydroCHLOROthiazide (hydroCHLOROthiazide 25 mg oral tablet) 1 tab(s) by mouth Once a day Duration: 90 Days take 1 tablet by mouth once daily Unchanged hyoscyamine (hyoscyamine 0.125 mg sublingual tablet) 1 tab(s) under the tongue Four (4) times daily-before meals and at bedtime Duration: [address] 1 tablet under the tongue and ALLOW to dissolve before meals and at bedtime Unchanged lidocaine topical (lidocaine 5% topical patch) 1 patch(es) Topical Once a day Chronic low back pain remove patches after 12 hours Unchanged metFORMIN (metFORMIN 500 mg oral tablet (IR)) 1 tab(s) by mouth Every day Prediabetes Unchanged omeprazole (omeprazole 40 mg oral delayed release capsule) 1 cap by mouth Once a day Duration: 90 Days Unchanged polyethylene glycol 3350 (MiraLax oral powder for reconstitution) 17 gram(s) by mouth Every day as needed for Constipation Constipation Duration: 14 Days Unchanged tiotropium (tiotropium 1.25 mcg/ inh inhalation aerosol) 2 puff(s) by inhalation Once a day Duration: 90 Days Unchanged tiZANidine (tiZANidine 4 mg oral tablet) 1 tab(s) by mouth Every 8 hours as needed for as needed for muscle spasm Unchanged traZODone (traZODone 100 mg oral tablet) 2 tab(s) by mouth Daily at bedtime Duration: 90 Days Unchanged varenicline (varenicline 0.5 mg-1 mg oral tablet) 1 tab(s) by mouth Two (2) times a day Please take this list to your next doctor s visit. Bring all medications you take, including over the counter medications, herbals and other supplements with you to your doctor s visit. Patients and families are reminded to discard old lists and to update any records with all medication providers or retail pharmacies. Education Materials General Neck and Back Pain Both neck and back pain are usually caused by injury to the muscles or ligaments of the spine. Sometimes the disks that separate each bone of the spine may cause pain by pressing on a nearby nerve. Back and neck pain may appear after a sudden twisting or bending force (such as in a car accident), or sometimes after a simple awkward movement. In either case, muscle spasm is often present and adds to the pain. Acute neck and back pain usually gets better in 1 to 2 weeks. Pain related to disk disease, arthritis in the spinal joints or spinal stenosis (narrowing of the spinal canal) can become chronic and last for months or years. Back and neck pain are common problems. Most people feel better in 1 or 2 weeks, and most of the rest in 1 to 2 months. Most people can remain active. People have and describe pain differently. Pain can be sharp, stabbing, shooting, aching, cramping, or burning Movement, standing, bending, lifting, sitting, or walking may worsen the pain Pain can be localized to one spot or area, or it can be more generalized Pain can spread or radiate upwards, downwards, to the front, or go down your arms Muscle spasm may occur. Most of the time mechanical problems with the muscles or spine cause the pain. it is usually causedby an injury, whether known or not, to the muscles or ligaments. While illnesses can cause back pain, it is usually not caused by a serious illness. Pain is usually related to physical activity, whether sports, exercise, work, or normal activity. Sometimes it can occur without an identifiable cause. This can happen simply by stretching or moving wrong, without noting pain at the time. Other causes include: Overexertion, lifting, pushing, pulling incorrectly or too aggressively. Sudden twisting, bending or stretching from an accident (car or fall), or accidental movement. Poor posture Poor conditioning, lack of regular exercise Spinal disc disease or arthritis Stress , or illness like appendicitis, bladder or kidney infection, pelvic infections Home care For neck pain: Use a comfortable pillow that supports the head and keeps the spine in a neutral position. The position of the head should not be tilted forward or backward. When in bed, try to find a position of comfort. A firm mattress is best. Try lying flat on your back with pillows under your knees. You can also try lying on your side with your knees bent up towardsyour chest and a pillow between your knees. At first, do not try to stretch out the sore spots. If there is a strain, it is not like the good soreness you get after exercising without an injury. In this case, stretching may make it worse. Don't sit for long periods, as in long car rides or other travel. This puts more stress on the lower back than standing or walking. During the first 24 to 72 hours after an injury, apply an ice pack to the painful area for 20 minutes and then remove it for 20 minutes over a period of 60 to 90 minutes or several times a day. You can alternate ice and heat therapies. Talk with your healthcare provider about the best treatment for your back or neck pain. As a safety precaution, do not use a heating pad at bedtime. Sleepingwith a heating pad can lead to skin mccracken or tissue damage. Therapeutic massage can help relax the back and neck muscles without stretching them. Be aware of safe lifting methods and do not lift anything over 15 pounds until all the pain is gone. Medicines Talk to your healthcare provider before using medicine, especially if you have other medical problems or are taking other medicines. You may use hplh-zwn-rgihqmi medicine to control pain, unless another pain medicine was prescribed.If you have chronic conditions like diabetes, liver or kidney disease, stomach ulcers, gastrointestinal bleeding, or are taking blood thinner medicines. Be careful if you are given pain medicines, narcotics, or medicine for muscle spasm. They can causedrowsiness, and can affect your coordination, reflexes, and judgment. Do not drive or operate heavymachinery. Follow-up care Follow up with your healthcare provider, or as advised. Physical therapy or further tests may be needed. If X-rays were taken, you will be notified of any new findings that may affect your care. Call 911 Call 911 if any of the following occur: Trouble breathing Confusion Very drowsy or trouble awakening Fainting or loss of consciousness Rapid or very slow heart rate Loss of bowel or bladder control When to seek medical advice Call your healthcare provider right away if any of these occur: Pain becomes worse or spreads into your arms or legs Weakness, numbness or pain in one or both arms or legs Numbness in the groin area Difficulty walking Fever of 100.4 F (38 C) or higher, or as directed by your healthcare provider [id number] The Consumer Agent Portal (CAP). [address] [place] [address]. All rights reserved. This information is not intended as a substitute for professional medical care. Always follow yourhealthcare professional's instructions. Additional Information VACCINATE! IT SAVES LIVES! Members of the community who have not yet received the COVID-19 vaccine and would like to receive it can visit one of [facility] vaccine clinics. There are many vaccine clinic locations within the [facility]. For locations and available times, please visit [email or web address]/. It is important to note that some COVID mobile vaccine clinics are held outdoors and may be canceled in rainy or stormy conditions. To learn more about pediatric vaccinations (ages 5-11), we invite you to visit the [facility] webpage. [email or web address]/[email or web address] [email or web address] learn more about the COVID-19 vaccine, we invite you to visit the CDC website for a list of frequently asked questions. https://www.cdc.gov/coronavirus/2019-ncov/vaccines/faq.html [facility] [facility] Patient Portal Access Instructions: Stay connected with your healthcare team and access your personal medical information anytime with the [facility] [facility] Patient Portal. If you would like a full copy of your medical records please contact the [facility] Medical Records Department Thursday through Thursday between 8a.m. and 4:30p.m. Please follow the directions below to access the portal: 1.Access the email account you provided upon registration to the [facility].2.Look for an invitation email from [facility].3.Open the email and access the invitation link: Accept Invitation to [facility] [employer] [facility]4.Fill in the required buchanan to create your account. Sign into [email or web address] with your username and password that you created in the above steps to stay up to date. You can then view a summary of results, a summary of your visits, and the ability to download your summaries to your computer or send the information securely to a physician. Remember that your healthcare information is confidential, so carefully consider who you will allow to register on the [facility] Patient Portal for access to your information. You can also access the [facility] Patient Portal on the [employer]. Simply click on Health Records under [facility] and then click on the [facility] logo. HOW TO SAFELY DISPOSE OF PRESCRIPTION MEDICATIONS Please use one of the following methods to safely dispose of your unused medications. 1.Use a drug disposal kit: the drug disposal pouch allows you to safely discard your old and unuseddrugs. Ask your nurse to give you one when you are discharged.2.Visit a local take-back location: Many local pharmacies and police departments have programs that collect old and unwanted prescriptiondrugs. Call your local pharmacy or go to http://bit.ly/9R6Vb4j to find one close to you.3.Make use of household items: Use cat litter or old coffee grounds to dispose medications if other options arenot available. Mix your drugs with these household products, seal them in an airtight container andthrow it into the garbage. Call [facility]: [phone] to be sure your drugs can be disposed of in this way. Some medicines may require a different approach.4.Never flush your medications down the toilet. IF YOU HAVE BEEN PRESCRIBED AN OPIOIDS FOR PAIN If you have been prescribed an opioid (such as hydrocodone, oxycodone or morphine), it is critical to understand the possible side effects and risks of opioid pain medications. Even when taken as directed, opioids can have several side effects including: Tolerance, meaning you might need to take more of a medication for the same pain relief. Nausea, vomiting and/or constipation. Sleepiness, dizziness, dry mouth, confusion, depression or itching. Physical dependence, meaning you have withdrawal symptoms when a medication is stopped ? this can develop within a few days. KNOW YOUR RESPONSIBILITIES It is important to know exactly how much and how often to take the opioid pain medications you are prescribed. Never take opioids in higher amounts or more often than prescribed. Do not combine opioids with alcohol or other drugs that cause drowsiness, such as benzodiazepines, also known as benzos,including diazepam and alprazolam, muscle relaxants or sleep aids. Never sell or share prescriptionopioids. This is illegal. Store opioids in a secure place and out of reach of others (including children, family, friends and visitors). The last page(s) of this document has been signed and retained as a CHART COPY Signatures Patient Education Materials Back and Neck Pain, General Medication Leaflets My discharge plan and instructions have been reviewed and explained to me and I,REJI VICTOR understand my current condition and have read and understand these discharge instructions. I have received a written copy of the plan/instructions. If I have questions, I am aware that I should contactmy doctor. Patient/Neonatal Surgeon Signature: Date/Time: Relationship to Patient: Witness Name/Signature: [id number] NoteSINUS RHYTHM BORDERLINE LEFT AXIS DEVIATION BORDERLINE T WAVE ABNORMALITIES This EKG was read and contributed directly to the care of the patient Electronic Signature: TED STOUT MD 09/19/2023 10:50:05[facility] 03-[facility] Note ORIGINAL EXAMINATION: ONE XRAY VIEW OF THE CHEST 09/19/2023 9:05 am COMPARISON: 08/10/2023 HISTORY: ORDERING SYSTEM PROVIDED HISTORY: Reason for Exam: chest pain FINDINGS: The cardiomediastinal silhouette is unchanged. Linear airspace disease at the right base favors atelectasis or scarring. Minimal linear airspace disease in the left costophrenic angle is unchanged and favors atelectasis or scarring. No large effusion, vascular congestion, or pneumothorax. IMPRESSION: Bibasilar atelectasis or scarring. Interpreted by: Karie Curran MD Preliminary Report By: Karie Curran MD Electronically signed By Karie Curran MD Dictated Date: 09/19/2023 9:08:38 AM Prelim Date: 09/19/2023 9:09:23 AM Sign Date: 09/19/2023 9:09:23 AM Ordering Provider: [facility]02-28-2024 Note ORIGINAL EXAMINATION: LIMITED RETROPERITONEAL ULTRASOUND08/26/2023 6:40 am TECHNIQUE: Multiple real time sonographic images of the urinary system were obtained assessing maher-scale appearance and color Doppler. COMPARISON: CT abdomen pelvis from 08/10/2023 and 05/01/2017 HISTORY: ORDERING SYSTEM PROVIDED HISTORY: Reason for Exam: renal cyst on CT FINDINGS: RIGHT KIDNEY: The right kidney is 11.7 cm in length. Normal echogenicity and no evidence for pelvicaliectasis, or abnormal perinephric fluid collection. Normal cortical thickness. 9 mm echogenic, nonobstructing lower pole renal calculus is noted. Multiple right renal cysts measuring up to 1.9 cm, some of which contain small internal septations. Additionally, there is a small hyperechoic cortical focus measuring up to 6 mm at the mid to lower pole. LEFT KIDNEY: The left kidney is 10.3 cm in length. Normal echogenicity and no evidence for pelvicaliectasis, or abnormal perinephric fluid collection. Normal cortical thickness. 9 mm echogenic nonobstructing lower pole renal calculus is noted. Multiple left renal cysts present, the largest of which is a 2.2 cm parapelvic cyst. Some of these cysts also have small internal septations. BLADDER: Unremarkable. IMPRESSION: Bilateral nonobstructing renal calculi measuring up to 9 mm. Bilateral renal cysts, some of which contain small internal septations. 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 I have personally reviewed the images of this examination and agree with the resident's findings and interpretation. Interpreted by: Kristen Bowden MD Preliminary Report By: Alan Petit Electronically signed By Kristen Bowden MD Dictated Date: 08/26/2023 1:25:54 PM Prelim Date: 08/26/2023 2:43:08 PM Sign Date: 08/26/2023 2:43:08 PM Ordering Provider: [facility]02[facility]12[facility]2024 Emergency department Discharge summary Discharge Instructions Thank you for allowing [facility] to assist you with your healthcare needs. The following is importantdischarge information regarding your hospital visit. Diagnosis from Today's Visit Generalized pain Multiple musculoskeletal pains-swelling What to Do Next Instructions from Your Care Team - Call PCP today stating you need to be seen within the next week as per emergency department physician recommendation -Call outpatient radiology to schedule an ultrasound, you will be given a paper prescription as well as prescription in the [facility] system for renal ultrasound No qualifying data available. Post Acute Orders No qualifying data available. You Need to Schedule the Following Appointments Follow Up with PHYSICIAN, NONE When Within 2-4 days Allergies Tape Vicodin Medications Please ask your primary doctor or pharmacist before taking any other medication not listed, including over the counter drugs, herbal medications, vitamins and or supplements as they may interact withyour home medications. What How Much When Instructions Last Dose New cyclobenzaprine (cyclobenzaprine 5 mg oral tablet) 1 tab(s) by mouth Every 8 hours as needed for PRN Duration: 10 Days Printed Prescription New methylPREDNISolone (Medrol 4 mg oral tablet) 6-5-4-3-2-1 tab(s) by mouth Every day Duration: 6 Days 24mg day 1, 20mg day 2, 16mg day 3, 12 mg day 4, 8mg day 5, 4mg day 6 Printed Prescription Unchanged albuterol (albuterol MDI (90 mcg/ inh) CFC free inhalation aerosol) 1 puff(s) by inhalation Four (4) times a day as needed for as needed for wheezing Unchanged aspirin (Hipolito Childrens Aspirin 81 mg oral tablet, (chewable)) 1 tab(s) by mouth Once a day Unchanged hydroCHLOROthiazide (hydroCHLOROthiazide 25 mg oral tablet) take 1 tablet by mouth once daily Unchanged traZODone 250 Milligram by mouth Daily at bedtime Please take this list to your next doctor s visit. Bring all medications you take, including over the counter medications, herbals and other supplements with you to your doctor s visit. Patients and families are reminded to discard old lists and to update any records with all medication providers or retail pharmacies. Education Materials Rheumatoid Arthritis You have rheumatoid arthritis (RA). This is a chronic disease that mainly affects the joints. Sometimes, it also affects other parts of the body. RA is an autoimmune disease. This means that the bodys immune system, which normally protects the body, causes harm instead. With RA, the immune system attacks the joints. The reason for this is unknown. In most cases, RA affects pairs of joints on both sides of the body. These can include joints in both elbows, wrists, hands, knees, feet, or ankles. The disease often starts slowly. Early symptoms include stiffness, muscle aches, weakness, and fatigue. Over time, the joints may begin to hurt. They may also become warm, swollen, or tender. Symptoms may feel worse in the morning after a night s rest and may get better with activity. With RA, you may have periods of active disease (when symptoms worsen) followed by periods of remission (when symptoms improve or go away). There is no known cure for RA. But medical treatment can slow or stop the progress of the disease. It can also help relieve symptoms. For advanced disease, surgery, such as joint replacement, may be the best option. Home care If you were prescribed a medicine, take it as directed. To help control swelling and pain, acetaminophen, ibuprofen, or another NSAID (non-steroidal anti-inflammatory drug) may be recommended. Note: If you have chronic liver or kidney disease or ever had a stomach ulcer or gastrointestinal bleeding, tell your healthcare provider before taking any of these medicines. Some persons find relief with heat (hot shower, hot bath, or heating pad). Others prefer cold (ice in a plastic bag, wrapped in a towel). Try both. Then use the method you like best. Use heat or coldfor about 20 minutes, a few times a day. Exercise is a batres part of treatment for RA. It helps reduce pain. It may also improve flexibility. Do your best to be active daily. Move your joints through their full range of motion each morning. Avoid staying in any one position for long periods of time. Take breaks throughout the day and move around. Also, ask your healthcare provider or physical therapist what exercises are best for you. If you are overweight, lose weight. Extra weight puts stress on your joints. If you smoke, quit. Smoking raises the risk of other problems linked to RA. No herbal product or nutritional supplement has been proven to help RA. But treatments such as acupuncture and massage may help relieve pain. Talk to your healthcare provider or occupational therapist about easier ways to perform daily tasks. This may include the use of assistive devices. These are special tools that can help with things like dressing, bathing, cooking, driving, and moving or getting around. Follow-up care Follow up with your healthcare provider, or as advised. When to seek medical advice Call your healthcare provider right away if any of these occur: Increasing weakness, pale color of the skin, fainting Chest pain or shortness of breath Blood in vomit or stool (black or red color) Changes in vision Skin ulcers Fever of 100.4 F (38 C) or higher, or as directed by your healthcare provider New joint pain New rash Resources To learn more about RA, contact: Arthritis Foundation, , www.arthritis.org National [place] of Arthritis and Musculoskeletal and Skin Diseases (NIAMS), , www.niams.nih.gov 2777-8896 [employer]. [address] [place] [address], [place] [address]. All rights reserved. This information is not intended as a substitute for professional medical care. Always follow yourhealthcare professional's instructions. Additional Information VACCINATE! IT SAVES LIVES! Members of the community who have not yet received the COVID-19 vaccine and would like to receive it can visit one of [facility] vaccine clinics. There are many vaccine clinic locations within the [facility]. For locations and available times, please visit www.gettheshot.coronavirus.[place].gov/. It is important to note that some COVID mobile vaccine clinics are held outdoors and may be canceled in rainy or stormy conditions. To learn more about pediatric vaccinations (ages 5-11), we invite you to visit the [facility] webpage. https://www.[email or web address]/pages/[email or web address]-[email or web address] stions.htmlTo learn more about the COVID-19 vaccine, we invite you to visit the CDC website for a list of frequently asked questions. https://www.cdc.gov/coronavirus/2019-ncov/vaccines/faq.html [facility] Patient Portal Access Instructions: Stay connected with your healthcare team and access your personal medical information anytime with the [facility] Patient Portal. If you would like a full copy of your medical records please contact the [facility] Medical Records Department Thursday through Thursday between 8a.m. and 4:30p.m. Please follow the directions below to access the portal: 1.Access the email account you provided upon registration to the [facility].2.Look for an invitation email from [facility].3.Open the email and access the invitation link: Accept Invitation to [facility]4.Fill in the required buchanan to create your account. Sign into www.[employer] with your username and password that you created in the above steps to stay up to date. You can then view a summary of results, a summary of your visits, and the ability to download your summaries to your computer or send the information securely to a physician. Remember that your healthcare information is confidential, so carefully consider who you will allow to register on the [facility] Patient Portal for access to your information. You can also access the [facility] Patient Portal on the [employer]. Simply click on Health Records under [facility] and then click on the [facility] logo. HOW TO SAFELY DISPOSE OF PRESCRIPTION MEDICATIONS Please use one of the following methods to safely dispose of your unused medications. 1.Use a drug disposal kit: the drug disposal pouch allows you to safely discard your old and unuseddrugs. Ask your nurse to give you one when you are discharged.2.Visit a local take-back location: Many local pharmacies and police departments have programs that collect old and unwanted prescriptiondrugs. Call your local pharmacy or go to http://bit.eGifter/4R7As7f to find one close to you.3.Make use of household items: Use cat litter or old coffee grounds to dispose medications if other options arenot available. Mix your drugs with these household products, seal them in an airtight container andthrow it into the garbage. Call [facility]: [phone] to be sure your drugs can be disposed of in this way. Some medicines may require a different approach.4.Never flush your medications down the toilet. IF YOU HAVE BEEN PRESCRIBED AN OPIOIDS FOR PAIN If you have been prescribed an opioid (such as hydrocodone, oxycodone or morphine), it is critical to understand the possible side effects and risks of opioid pain medications. Even when taken as directed, opioids can have several side effects including: Tolerance, meaning you might need to take more of a medication for the same pain relief. Nausea, vomiting and/or constipation. Sleepiness, dizziness, dry mouth, confusion, depression or itching. Physical dependence, meaning you have withdrawal symptoms when a medication is stopped ? this can develop within a few days. KNOW YOUR RESPONSIBILITIES It is important to know exactly how much and how often to take the opioid pain medications you are prescribed. Never take opioids in higher amounts or more often than prescribed. Do not combine opioids with alcohol or other drugs that cause drowsiness, such as benzodiazepines, also known as benzos,including diazepam and alprazolam, muscle relaxants or sleep aids. Never sell or share prescriptionopioids. This is illegal. Store opioids in a secure place and out of reach of others (including children, family, friends and visitors). The last page(s) of this document has been signed and retained as a CHART COPY Signatures Patient Education Materials Rheumatoid Arthritis Medication Leaflets My discharge plan and instructions have been reviewed and explained to me and I,REJI VICTOR understand my current condition and have read and understand these discharge instructions. I have received a written copy of the plan/instructions. If I have questions, I am aware that I should contactmy doctor. 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 Discharge instructions Patient Education 08/10/2023 13:32:03 Rheumatoid Arthritis Rheumatoid Arthritis You have rheumatoid arthritis (RA). This is a chronic disease that mainly affects the joints. Sometimes, it also affects other parts of the body. RA is an autoimmune disease. This means that the bodys immune system, which normally protects the body, causes harm instead. With RA, the immune system attacks the joints. The reason for this is unknown. In most cases, RA affects pairs of joints on both sides of the body. These can include joints in both elbows, wrists, hands, knees, feet, or ankles. The disease often starts slowly. Early symptoms include stiffness, muscle aches, weakness, and fatigue. Over time, the joints may begin to hurt. They may also become warm, swollen, or tender. Symptoms may feel worse in the morning after a night s rest and may get better with activity. With RA, you may have periods of active disease (when symptoms worsen) followed by periods of remission (when symptoms improve or go away). There is no known cure for RA. But medical treatment can slow or stop the progress of the disease. It can also help relieve symptoms. For advanced disease, surgery, such as joint replacement, may be the best option. Home care If you were prescribed a medicine, take it as directed. To help control swelling and pain, acetaminophen, ibuprofen, or another NSAID (non-steroidal anti-inflammatory drug) may be recommended. Note: If you have chronic liver or kidney disease or ever had a stomach ulcer or gastrointestinal bleeding, tell your healthcare provider before taking any of these medicines. Some persons find relief with heat (hot shower, hot bath, or heating pad). Others prefer cold (ice in a plastic bag, wrapped in a towel). Try both. Then use the method you like best. Use heat or coldfor about 20 minutes, a few times a day. Exercise is a batres part of treatment for RA. It helps reduce pain. It may also improve flexibility. Do your best to be active daily. Move your joints through their full range of motion each morning. Avoid staying in any one position for long periods of time. Take breaks throughout the day and move around. Also, ask your healthcare provider or physical therapist what exercises are best for you. If you are overweight, lose weight. Extra weight puts stress on your joints. If you smoke, quit. Smoking raises the risk of other problems linked to RA. No herbal product or nutritional supplement has been proven to help RA. But treatments such as acupuncture and massage may help relieve pain. Talk to your healthcare provider or occupational therapist about easier ways to perform daily tasks. This may include the use of assistive devices. These are special tools that can help with things like dressing, bathing, cooking, driving, and moving or getting around. Follow-up care Follow up with your healthcare provider, or as advised. When to seek medical advice Call your healthcare provider right away if any of these occur: Increasing weakness, pale color of the skin, fainting Chest pain or shortness of breath Blood in vomit or stool (black or red color) Changes in vision Skin ulcers Fever of 100.4 F (38 C) or higher, or as directed by your healthcare provider New joint pain New rash Resources To learn more about RA, contact: Arthritis Foundation, , www.arthritis.org National [place] of Arthritis and Musculoskeletal and Skin Diseases (NIAMS), , www.niams.nih.gov 2249-7354 [employer] [address] [place] [address]. All rights reserved. This information is not intended as a substitute for professional medical care. Always follow yourhealthcare professional's instructions. Follow Up Care 08/10/2023 09:55:09 With:PHYSICIAN, NONE Address:Unknown When:2-4 days [facility] 02-12-2024 Emergency department Discharge summary Discharge Instructions Thank you for allowing [facility] to assist you with your healthcare needs. The following is importantdischarge information regarding your hospital visit. Diagnosis from Today's Visit Generalized pain Multiple musculoskeletal pains-swelling What to Do Next Instructions from Your Care Team - Call PCP today stating you need to be seen within the next week as per emergency department physician recommendation -Call outpatient radiology to schedule an ultrasound, you will be given a paper prescription as well as prescription in the [facility] system for renal ultrasound No qualifying data available. Post Acute Orders No qualifying data available. You Need to Schedule the Following Appointments Follow Up with PHYSICIAN, NONE When Within 2-4 days Allergies Tape Vicodin Medications Please ask your primary doctor or pharmacist before taking any other medication not listed, including over the counter drugs, herbal medications, vitamins and or supplements as they may interact withyour home medications. What How Much When Instructions Last Dose New cyclobenzaprine (cyclobenzaprine 5 mg oral tablet) 1 tab(s) by mouth Every 8 hours as needed for PRN Duration: 10 Days Printed Prescription New methylPREDNISolone (Medrol 4 mg oral tablet) 6-5-4-3-2-1 tab(s) by mouth Every day Duration: 6 Days 24mg day 1, 20mg day 2, 16mg day 3, 12 mg day 4, 8mg day 5, 4mg day 6 Printed Prescription Unchanged albuterol (albuterol MDI (90 mcg/ inh) CFC free inhalation aerosol) 1 puff(s) by inhalation Four (4) times a day as needed for as needed for wheezing Unchanged aspirin (Hipolito Childrens Aspirin 81 mg oral tablet, (chewable)) 1 tab(s) by mouth Once a day Unchanged hydroCHLOROthiazide (hydroCHLOROthiazide 25 mg oral tablet) take 1 tablet by mouth once daily Unchanged traZODone 250 Milligram by mouth Daily at bedtime Please take this list to your next doctor s visit. Bring all medications you take, including over the counter medications, herbals and other supplements with you to your doctor s visit. Patients and families are reminded to discard old lists and to update any records with all medication providers or retail pharmacies. Education Materials Rheumatoid Arthritis You have rheumatoid arthritis (RA). This is a chronic disease that mainly affects the joints. Sometimes, it also affects other parts of the body. RA is an autoimmune disease. This means that the bodys immune system, which normally protects the body, causes harm instead. With RA, the immune system attacks the joints. The reason for this is unknown. In most cases, RA affects pairs of joints on both sides of the body. These can include joints in both elbows, wrists, hands, knees, feet, or ankles. The disease often starts slowly. Early symptoms include stiffness, muscle aches, weakness, and fatigue. Over time, the joints may begin to hurt. They may also become warm, swollen, or tender. Symptoms may feel worse in the morning after a night s rest and may get better with activity. With RA, you may have periods of active disease (when symptoms worsen) followed by periods of remission (when symptoms improve or go away). There is no known cure for RA. But medical treatment can slow or stop the progress of the disease. It can also help relieve symptoms. For advanced disease, surgery, such as joint replacement, may be the best option. Home care If you were prescribed a medicine, take it as directed. To help control swelling and pain, acetaminophen, ibuprofen, or another NSAID (non-steroidal anti-inflammatory drug) may be recommended. Note: If you have chronic liver or kidney disease or ever had a stomach ulcer or gastrointestinal bleeding, tell your healthcare provider before taking any of these medicines. Some persons find relief with heat (hot shower, hot bath, or heating pad). Others prefer cold (ice in a plastic bag, wrapped in a towel). Try both. Then use the method you like best. Use heat or coldfor about 20 minutes, a few times a day. Exercise is a batres part of treatment for RA. It helps reduce pain. It may also improve flexibility. Do your best to be active daily. Move your joints through their full range of motion each morning. Avoid staying in any one position for long periods of time. Take breaks throughout the day and move around. Also, ask your healthcare provider or physical therapist what exercises are best for you. If you are overweight, lose weight. Extra weight puts stress on your joints. If you smoke, quit. Smoking raises the risk of other problems linked to RA. No herbal product or nutritional supplement has been proven to help RA. But treatments such as acupuncture and massage may help relieve pain. Talk to your healthcare provider or occupational therapist about easier ways to perform daily tasks. This may include the use of assistive devices. These are special tools that can help with things like dressing, bathing, cooking, driving, and moving or getting around. Follow-up care Follow up with your healthcare provider, or as advised. When to seek medical advice Call your healthcare provider right away if any of these occur: Increasing weakness, pale color of the skin, fainting Chest pain or shortness of breath Blood in vomit or stool (black or red color) Changes in vision Skin ulcers Fever of 100.4 F (38 C) or higher, or as directed by your healthcare provider New joint pain New rash Resources To learn more about RA, contact: Arthritis Foundation, , www.arthritis.org National [place] of Arthritis and Musculoskeletal and Skin Diseases (NIAMS), , www.niams.nih.gov 4009-4498 [employer]. [address] [place] [address], [place] [address]. All rights reserved. This information is not intended as a substitute for professional medical care. Always follow yourhealthcare professional's instructions. Additional Information VACCINATE! IT SAVES LIVES! Members of the community who have not yet received the COVID-19 vaccine and would like to receive it can visit one of [facility] vaccine clinics. There are many vaccine clinic locations within the [facility]. For locations and available times, please visit www.gettheshot.coronavirus.[place].gov/. It is important to note that some COVID mobile vaccine clinics are held outdoors and may be canceled in rainy or stormy conditions. To learn more about pediatric vaccinations (ages 5-11), we invite you to visit the [facility] webpage. https://www.[facility].org/pages/2781-Awmhi-Ilytdievdbq-Mgkoqmxqxd-Hardm-Oyj stions.htmlTo learn more about the COVID-19 vaccine, we invite you to visit the CDC website for a list of frequently asked questions. https://www.cdc.gov/coronavirus/2019-ncov/vaccines/faq.html [facility] [employer] Patient Portal Access Instructions: Stay connected with your healthcare team and access your personal medical information anytime with the [facility] Patient Portal. If you would like a full copy of your medical records please contact the [facility] Medical Records Department Thursday through Thursday between 8a.m. and 4:30p.m. Please follow the directions below to access the portal: 1.Access the email account you provided upon registration to the [facility].2.Look for an invitation email from [facility].3.Open the email and access the invitation link: Accept Invitation to [facility] [employer]4.Fill in the required buchanan to create your account. Sign into www.[employer] with your username and password that you created in the above steps to stay up to date. You can then view a summary of results, a summary of your visits, and the ability to download your summaries to your computer or send the information securely to a physician. Remember that your healthcare information is confidential, so carefully consider who you will allow to register on the [facility] Patient Portal for access to your information. You can also access the [facility] Patient Portal on the [employer]. Simply click on Health Records under [facility] and then click on the [employer] logo. HOW TO SAFELY DISPOSE OF PRESCRIPTION MEDICATIONS Please use one of the following methods to safely dispose of your unused medications. 1.Use a drug disposal kit: the drug disposal pouch allows you to safely discard your old and unuseddrugs. Ask your nurse to give you one when you are discharged.2.Visit a local take-back location: Many local pharmacies and police departments have programs that collect old and unwanted prescriptiondrugs. Call your local pharmacy or go to http://[employer].eGifter/2L5Iz1q to find one close to you.3.Make use of household items: Use cat litter or old coffee grounds to dispose medications if other options arenot available. Mix your drugs with these household products, seal them in an airtight container andthrow it into the garbage. Call [facility]: [phone] to be sure your drugs can be disposed of in this way. Some medicines may require a different approach.4.Never flush your medications down the toilet. IF YOU HAVE BEEN PRESCRIBED AN OPIOIDS FOR PAIN If you have been prescribed an opioid (such as hydrocodone, oxycodone or morphine), it is critical to understand the possible side effects and risks of opioid pain medications. Even when taken as directed, opioids can have several side effects including: Tolerance, meaning you might need to take more of a medication for the same pain relief. Nausea, vomiting and/or constipation. Sleepiness, dizziness, dry mouth, confusion, depression or itching. Physical dependence, meaning you have withdrawal symptoms when a medication is stopped ? this can develop within a few days. KNOW YOUR RESPONSIBILITIES It is important to know exactly how much and how often to take the opioid pain medications you are prescribed. Never take opioids in higher amounts or more often than prescribed. Do not combine opioids with alcohol or other drugs that cause drowsiness, such as benzodiazepines, also known as benzos,including diazepam and alprazolam, muscle relaxants or sleep aids. Never sell or share prescriptionopioids. This is illegal. Store opioids in a secure place and out of reach of others (including children, family, friends and visitors). The last page(s) of this document has been signed and retained as a CHART COPY Signatures Patient Education Materials Rheumatoid Arthritis Medication Leaflets My discharge plan and instructions have been reviewed and explained to me and I,REJI VICTOR understand my current condition and have read and understand these discharge instructions. I have received a written copy of the plan/instructions. If I have questions, I am aware that I should contactmy doctor. 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 Multiplanar reformatted images are provided for review. Automated exposure control, iterative reconstruction, and/or weight based adjustment of the mA/kV was utilized to reduce the radiation dose to as low as reasonably achievable. COMPARISON: 05/01/2017 HISTORY: ORDERING SYSTEM PROVIDED HISTORY: Reason for Exam: LLQ ABD PAIN abd pain, bloating FINDINGS: Dependent atelectasis noted. There is a 2 mm nodule in the left upper lobe. Scarring/atelectasis also noted in the lingula. The heart is normal in size. The liver, spleen, adrenal glands, and pancreas are within normal limits. The gallbladder is surgically absent. The common duct is mildly dilated, presumably due to prior cholecystectomy. The kidneys enhance symmetrically. Numerous low-density renal lesions are likely cysts. Some of the lesions have a mildly complex attenuation value. A sales representative church furniture complex lesion in the left kidney is 40 Hounsfield units and 1.7 cm. Small bilateral renal calculi noted. No ureter calculus or hydronephrosis seen. The bladder is poorly distended. The large and small bowel demonstrate no obstruction. The appendix is normal. Diverticulosis noted. No definite active inflammation. The aorta is normal in caliber. There is mild atherosclerosis of the larger arteries. There is no lymphadenopathy. A lymph node along the right external iliac artery chain on image 97 measures 8 mm in short axis. Other subcentimeter short axis lymph nodes seen in the pelvis and do not currently meet criteria for lymphadenopathy. No filling defects seen in the urinary bladder. There is no acute fracture or aggressive osseous lesion. Mild degenerative changes seen of the spine and hips. IMPRESSION: 1. Diverticulosis. No definite active inflammation. 2. Numerous low-density renal lesions are likely cysts. Some of the lesions have a complex attenuation value. Renal ultrasound advised to exclude a solid renal mass. 3. Nephrolithiasis. No urinary obstruction 4. Other incidental findings, as above. 5. 2 mm left solid pulmonary nodule within the upper lobe. Per Fleischner Society Guidelines, if patient is low risk for malignancy, no routine follow-up imaging is recommended. If patient is high risk for malignancy, a non-contrast Chest CT at 12 months is optional. If performed and the nodule is stable at 12 months, no further follow-up is recommended. These guidelines do not apply to immunocompromised patients and patients with cancer. Follow up in patients with significant comorbidities as clinically warranted. For lung cancer screening, adhere to Lung-RADS guidelines. Reference: Radiology. 2017; 284(1):228-43. Interpreted by: Yogi Sunshine MD Preliminary Report By: Yogi Sunshine MD Electronically signed By Yogi Sunshine MD Dictated Date: 08/10/2023 12:54:27 PM Prelim Date: 08/10/2023 1:00:12 PM Sign Date: 08/10/2023 1:00:12 PM Ordering Provider: [facility]02-12-2024 NoteSINUS RHYTHM LAD, CONSIDER LEFT ANTERIOR FASCICULAR BLOCK Electronic Signature: TIGRE RIOS DO 08/10/2023 13:20:49[facility] 02-12-2024 Note ORIGINAL EXAMINATION: ONE XRAY VIEW OF THE CHEST08/10/2023 11:03 am XR Chest portable upright COMPARISON: 07/28/2023 from [facility] HISTORY: ORDERING SYSTEM PROVIDED HISTORY: Reason for Exam: cp, FINDINGS: No suspicious nodule, acute infiltrate, consolidation,mass, pneumothorax, pleural fluid, or vascular congestion is seen. Heart size and mediastinal contours are within normal limits for age and projection. No acute skeletal abnormality. IMPRESSION: No acute cardiopulmonary process. Interpreted by: Landon Scruggs MD Preliminary Report By: Landon Scruggs MD Electronically signed By Landon Scruggs MD Dictated Date: 08/10/2023 11:22:33 AM Prelim Date: 08/10/2023 11:22:55 AM Sign Date: 08/10/2023 11:22:55 AM Ordering Provider: [facility]01-30-2024 NoteHNO ID: [id number] Author: NANCY MATSON RT(R) Service: Radiology Author Type: Technologist Type: Progress Notes Filed: 07/28/2023 12:44 Note Text: Radiology Service Progress Note PATIENT NAME: Reji Victor DATE OF SERVICE: July 28, 2023 TIME: 12:44 PM PATIENT IDENTITY VERIFICATION COMPLETED USING TWO (2) IDENTIFIERS: Name and Date of confirmed by patient verbally and Name and Date of confirmed by identification band. FALL SCREENING: Has the patient had 2 falls in the last year or 1 fall with injury or currently using an Ambulatory Assistive Device (Walker, Cane, Wheelchair, Crutches, etc.)? Emergency Room Patient: Screened in ED PATIENT GENDER DATA: Male PATIENT RELEVANT IMPLANT DATA REVIEWED: Not Applicable PATIENT PRESENTS WITH AN IMPLANTABLE OR ATTACHED TELEGRAPH OFFICE TELEPHONE CLERK: No RADIOLOGY DEPARTMENT: General X-ray: Exam(s) Completed: Chest X-Ray PERIPHERAL IV DATA: Not applicable SIGNED BY: SATURNINO VazR) July 28, 2023 12:44 PMDear[facility] [id number] NotePatient Outreach (MRCAC) REJI VICTOR ([id number]) 1975 [facility] Date Time Provider Department 05/06/23 MICHAELA BARRAGAN During your visit today, we recorded the following information about you: Michaela Barragan RN 05/11/2023 8:57 AM Signed PRIMARY CARE COORDINATION ED CHART REVIEW Provider Action/FYI Patient identified for Care Coordination from: Notify SUMMARY: -Patient discharged from [place] ED on 05/01. -Presented with: Abd Pain FUTURE APPOINTMENTS: Visit date not found Follow up call needed: Left message for patient to return call to my ext [phone] ext [phone] From Notify: Emergency Department Summary [facility] Medical Records Department [address] [place] [address] Emergency Department Summary 05/01/23 MR#: [id number] Acct: [id number] Name: REJI VICTOR Rep #: [id number] : 1975 47 From: Cheo Reynoso MD PCP: Care Physician,No Primary Status:REG ER Location: ED HPI HPI - GI History of Present Illness Chief Complaint: Abd Pain Narrative Narrative: 47-year-old male past medical history of chronic back problems, hypertension, presents with bilateral lower abdominal pain that he sustained from bending over since yesterday evening. He denies any fevers or chills, he was nauseated earlier but has had no vomiting. No diarrhea, no dysuria or hematuria. He has pain that is worse with movement and transfer. No previous past abdominal surgeries. He states that he presents for evaluation of his both right lower quadrant and left lower quadrant pain in the area under his pannus where his muscles attach to his pelvis. [facility] Medical History GERD (gastroesophageal reflux disease) Migraines Rheumatoid aortitis Spinal stenosis Home Medications albuterol sulfate 90 mcg/actuation aerosol inhaler (ProAir HFA) 2 puff inhalation Q4H PRN PRN Sob /Or Wheezing 12/09/18 [History Last Taken Unknown] trazodone 150 mg tablet 150 mg PO DAILY 03/14/20 [History Last Taken Unknown] Allergy/AdvReac Type Severity Reaction Status Date / Time adhesive tape [surgical tape] AdvReac Rash Verified 05/01/23 13:19 hydrocodone bitartrate AdvReac Nausea Verified 05/01/23 13:19 [From Vicodin] Social History Smoking Status: Current every day smoker tobacco type: cigarettes and smokeless tobacco ROS ROS ED ROS Narrative Constitutional: No fever, no chills. HEENT: No sore throat. No neck pain. No loss of vision. No rhinorrhea. Cardiovascular: No chest pain. No palpitations. No pedal edema. Respiratory: No cough, no shortness of breath. Abdominal: Bilateral lower quadrant, right greater than left abdominal pain. Positive nausea. No vomiting. Genitourinary: No dysuria. No hematuria. Musculoskeletal: No myalgias. No arthralgias. Neurologic: No headaches. No dizziness. No lightheadedness. Skin: No rash. No change in color. Psychiatric: No depression. No anxiety. EXAM Physical Exam Narrative Exam Narrative: Afebrile. Vital signs noted. HEENT: Normocephalic. Atraumatic. PERRL, EOMI. Neck soft and supple. No point tenderness or step off. Cardiovascular: Regular rate and rhythm. No murmurs, rubs, or gallops appreciated. Respiratory: No tachypnea. Lungs clear to auscultation bilaterally. Gastrointestinal: Abdomen soft, minimal tenderness to palpation where abdominal rectus muscles insert on pelvis, with normoactive bowel sounds. No rebound or guarding. Positive pain with half sit up. Neurological: Awake. Alert. Nonfocal, nonlateralizing. Skin: No rash. Normal color. No pallor. Musculoskeletal: No pedal edema. Full range of motion extremities. Const Vital Signs: 05/01/23 13:17 Temperature 97.8 F Temperature Source Temporal Pulse Rate 83 Respiratory Rate 16 Blood Pressure 169/109 H Blood Pressure Mean 129 Pulse Ox 100 Oxygen Delivery Method Room Air MDM MDM MDM Narrative Medical decision making narrative: Concern is for abdominal muscular strain versus internal process. I have low suspicion for appendicitis based on his clinical examination. Comprehensive work-up was pursued. I will obtain basic lab work including CBC and CMP along with a urinalysis to help rule out any infection. He will be given Toradol for analgesia and CT imaging obtained and reviewed. I reviewed his laboratory work from today and he has a normal white count of 7.7, hemoglobin 13.5, hematocrit 41.5, platelet count normal at 221. Electrolyte panel is grossly unremarkable with a normal BUN of 13, creatinine also normal at 1.05, sodium 140, potassium 3.8, chloride 107. LFTs are normal at an AST of 37 and ALT of 28. Urine is negative for infection with negative leukocytes and negative nitrite (more content not included)...[facility]11-08-2023 NoteHNO ID: [id number] Author: Michaela Barragan RN Service: ? Author Type: Registered Nurse Type: Progress Notes Filed: 05/11/2023 8:57 AM Note Text: Summary: ED follow up PRIMARY CARE COORDINATION ED CHART REVIEW Provider Action/FYI Patient identified for Care Coordination from: Notify SUMMARY: -Patient discharged from [place] ED on 05/01. -Presented with: Abd Pain FUTURE APPOINTMENTS: Visit date not found Follow up call needed: Left message for patient to return call to my ext [phone] ext [phone] From Notify: Emergency Department Summary [facility] Medical Records Department [address] [place] [address] Emergency Department Summary 05/01/23 MR#: [id number] Acct: [id number] Name: VALENTEREJI SANCHEZ Rep #: [id number] : 1975 47 From: Cheo Reynoso MD PCP: Care Physician,No Primary Status:REG ER Location: ED HPI HPI - GI History of Present Illness Chief Complaint: Abd Pain Narrative Narrative: 47-year-old male past medical history of chronic back problems, hypertension, presents with bilateral lower abdominal pain that he sustained from bending over since yesterday evening. He denies any fevers or chills, he was nauseated earlier but has had no vomiting. No diarrhea, no dysuria or hematuria. He has pain that is worse with movement and transfer. No previous past abdominal surgeries. He states that he presents for evaluation of his both right lower quadrant and left lower quadrant pain in the area under his pannus where his muscles attach to his pelvis. PFSH PFSH Medical History GERD (gastroesophageal reflux disease) Migraines Rheumatoid aortitis Spinal stenosis Home Medications albuterol sulfate 90 mcg/actuation aerosol inhaler (ProAir HFA) 2 puff inhalation Q4H PRN PRN Sob /Or Wheezing 12/09/18 [History Last Taken Unknown] trazodone 150 mg tablet 150 mg PO DAILY 03/14/20 [History Last Taken Unknown] Allergy/AdvReac Type Severity Reaction Status Date / Time adhesive tape [surgical tape] AdvReac Rash Verified 05/01/23 13:19 hydrocodone bitartrate AdvReac Nausea Verified 05/01/23 13:19 [From Vicodin] Social History Smoking Status: Current every day smoker tobacco type: cigarettes and smokeless tobacco ROS ROS ED ROS Narrative Constitutional: No fever, no chills. HEENT: No sore throat. No neck pain. No loss of vision. No rhinorrhea. Cardiovascular: No chest pain. No palpitations. No pedal edema. Respiratory: No cough, no shortness of breath. Abdominal: Bilateral lower quadrant, right greater than left abdominal pain. Positive nausea. No vomiting. Genitourinary: No dysuria. No hematuria. Musculoskeletal: No myalgias. No arthralgias. Neurologic: No headaches. No dizziness. No lightheadedness. Skin: No rash. No change in color. Psychiatric: No depression. No anxiety. EXAM Physical Exam Narrative Exam Narrative: Afebrile. Vital signs noted. HEENT: Normocephalic. Atraumatic. PERRL, EOMI. Neck soft and supple. No point tenderness or step off. Cardiovascular: Regular rate and rhythm. No murmurs, rubs, or gallops appreciated. Respiratory: No tachypnea. Lungs clear to auscultation bilaterally. Gastrointestinal: Abdomen soft, minimal tenderness to palpation where abdominal rectus muscles insert on pelvis, with normoactive bowel sounds. No rebound or guarding. Positive pain with half sit up. Neurological: Awake. Alert. Nonfocal, nonlateralizing. Skin: No rash. Normal color. No pallor. Musculoskeletal: No pedal edema. Full range of motion extremities. Const Vital Signs: 05/01/23 13:17 Temperature 97.8 F Temperature Source Temporal Pulse Rate 83 Respiratory Rate 16 Blood Pressure 169/109 H Blood Pressure Mean 129 Pulse Ox 100 Oxygen Delivery Method Room Air MDM MDM MDM Narrative Medical decision making narrative: Concern is for abdominal muscular strain versus internal process. I have low suspicion for appendicitis based on his clinical examination. Comprehensive work-up was pursued. I will obtain basic lab work including CBC and CMP along with a urinalysis to help rule out any infection. He will be given Toradol for analgesia and CT imaging obtained and reviewed. I reviewed his laboratory work from today and he has a normal white count of 7.7, hemoglobin 13.5, hematocrit 41.5, platelet count normal at 221. Electrolyte panel is grossly unremarkable with a normal BUN of 13, creatinine also normal at 1.05, sodium 140, potassium 3.8, chloride 107. LFTs are normal at an AST of 37 and ALT of 28. Urine is negative for infection with negative leukocytes and neg (more content not included)...[facility]11-07-2023 Miscellaneous Notes* Telephone Encounter - Simi MaldonadoCELINA - 05/05/2023 12:02 PM EST Summary: Medication refill Patient phones requesting refills as follows: Patient phones requesting refills as follows: Requested Prescriptions Pending Prescriptions Disp Refills cyclobenzaprine (FLEXERIL) 10 mg tablet Sig: Take 1 tablet by mouth three times a day as needed for muscle spasm. meloxicam (MOBIC) 15 mg tablet Sig: Take 1 tablet by mouth once daily. hyoscyamine sublingual (LEVSIN SL) 0.125 mg 72 tablet 3 Please review and advise. Simi Maldonado MA Please review and advise. Simi Maldonado MA [facility] Discharge summary Author Cheo Reynoso [facility] May 01, 2023 3:48pm Note Date/Time May 01, 2023 2 :07pm [facility] Medical Records Department [address] [place] [address] Emergency Department Summary 05/01/23 MR#: [id number] Acct: [id number] Name: REJI VICTOR Rep #:[id number] : 1975 47 From: Cheo Reynoso MD PCP: Care Physician,No Primary Status :REG ER Location: ED HPI HPI - GI History of Present Illness Chief Complaint: Abd Pain Narrative Narrative: 47-year-old male past medical history of chronic back problems, hypertension, presents with bilateral lower abdominal pain that he sustained from bending oversince yesterday evening. He denies any fevers or chills, he was nauseated earlier but has had no vomiting. No diarrhea, no dysuria or hematuria. He has pain that is worse with movement and transfer. No previous past abdominal surgeries. He states that he presents for evaluation of his both right lower quadrant and left lower quadrant pain in the area under his pannus where his muscles attach to his pelvis. PFSH PFS Medical History GERD (gastroesophageal reflux disease) Migraines Rheumatoid aortitis Spinal stenosis Home Medications albuterol sulfate 90 mcg/actuation aerosol inhaler (ProAir HFA) 2 puff inhalation Q4H PRN PRN Sob &/Or Wheezing 12/09/18 [History Last Taken Unknown] trazodone 150 mg tablet 150 mg PO DAILY 03/14/20 [History Last Taken Unknown] Allergy/AdvReac Type Severity Reaction Status Date / Time adhesive tape [surgical tape] AdvReac Rash Verified 05/01/23 13:19 hydrocodone bitartrate AdvReac Nausea Verified 05/01/23 13:19 [From Vicodin] Social History Smoking Status: Current every day smoker tobacco type: cigarettes and smokelesstobacco ROS ROS ED ROS Narrative Constitutional: No fever, no chills. HEENT: No sore throat. No neck pain. No loss of vision. No rhinorrhea. Cardiovascular: No chest pain. No palpitations. No pedal edema. Respiratory: No cough, no shortness of breath. Abdominal: Bilateral lower quadrant, right greater than left abdominal pain. Positive nausea. No vomiting. Genitourinary: No dysuria. No hematuria. Musculoskeletal: No myalgias. No arthralgias. Neurologic: No headaches. No dizziness. No lightheadedness. Skin: No rash. No change in color. Psychiatric: No depression. No anxiety. EXAM Physical Exam Narrative Exam Narrative: Afebrile. Vital signs noted. HEENT: Normocephalic. Atraumatic. PERRL, EOMI. Neck soft and supple. No pointtenderness or step off. Cardiovascular: Regular rate and rhythm. No murmurs, rubs, or gallops appreciated. Respiratory: No tachypnea. Lungs clear to auscultation bilaterally. Gastrointestinal: Abdomen soft, minimal tenderness to palpation where abdominal rectus muscles insert on pelvis, with normoactive bowel sounds. No rebound or guarding. Positive pain with half sit up. Neurological: Awake. Alert. Nonfocal, nonlateralizing. Skin: No rash. Normal color. No pallor. Musculoskeletal: No pedal edema. Full range of motion extremities. Const Vital Signs: 05/01/23 13:17 Temperature 97.8 F Temperature Source Temporal Pulse Rate 83 Respiratory Rate 16 Blood Pressure 169/109 H Blood Pressure Mean 129 Pulse Ox 100 Oxygen Delivery Method Room Air MDM MDM MDM Narrative Medical decision making narrative: Concern is for abdominal muscular strain versus internal process. I have low suspicion for appendicitis based on his clinical examination. Comprehensive work-up was pursued. I will obtain basic lab work including CBC and CMP along with a urinalysis to help rule out any infection. He will be given Toradol for analgesia and CT imaging obtained and reviewed. I reviewed his laboratory work from today and he has a normal white count of 7.7, hemoglobin 13.5, hematocrit 41.5, platelet count normal at 221. Electrolyte panel is grossly unremarkable with a normal BUN of 13, creatinine also normal at 1.05, sodium 140, potassium 3.8, chloride 107. LFTs are normal at an AST of 37 and ALT of 28. Urine is negative for infection with negative leukocytes and negative nitrites, 0 WBCs on exam. I do not feel antibiotics areindicated. I reviewed the CT report of the abdomen and pelvis with IV contrast. There are stable renal cysts and sigmoid diverticulosis without evidence of diverticulitis. He was given Toradol for his pain. I do feel he has more of anabdominal wall strain given his negative work-up here and negative CT imaging. Treat will be symptomatic with frbu-qzr-hqftset medications as I do not feel narcotics are indicated. I do not feel he requires observation at this time. He will follow-up with his primary care provider in approximately 1 week. I feel he can be discharged safely home with follow-up. Return instructions were reviewed. Disposition is discharged home in stable condition. History & Record Review Discussion w/independent historian: Patient Additional record(s) reviewed:: Prior ED visit and Prior labs Lab Data Attestation: I reviewed the patient's lab results. Labs: Laboratory Results - last 24 hr 05/01/23 05/01/23 14:05 14:10 WBC 7.7 RBC 4.49 L Hgb 13.5 Hct 41.5 MCV 92.4 MCH 30.1 MCHC 32.5 RDW Std Deviation 45.7 H RDW Coeff of Maame 13.4 Plt Count 221 MPV 9.5 Immature Gran % (Auto) 0.300 Neut % (Auto) 49.0 Lymph % (Auto) 40.1 [place] % (Auto) 7.7 Eos % (Auto) 2.6 Baso % (Auto) 0.3 Absolute Neuts (auto) 3.8 Absolute Lymphs (auto) 3.07 Nucleated RBC % 0 Sodium 140 Potassium 3.8 Chloride 107 Carbon Dioxide 28.0 Anion Gap 5 BUN 13 Creatinine 1.05 Estim Creat Clear Calc 85.10 Est GFR (MDRD) Af Amer 96 Est GFR (MDRD) Non-Af 80 BUN/Creatinine Ratio 12.4 Glucose 92 Calcium 9.0 Total Bilirubin 0.40 AST 37 ALT 28 Alkaline Phosphatase 72 Total Protein 7.0 Albumin 3.6 Globulin 3.4 Albumin/Globulin Ratio 1.1 Urine Color Yellow Urine Clarity Clear Urine pH 6.5 Ur Specific [place] 1.015 Urine Protein Negative Urine Glucose (UA) Normal Urine Ketones Negative Urine Occult Blood 25 H Urine Nitrite Negative Urine Bilirubin Negative Urine Urobilinogen Normal Ur Leukocyte Esterase Negative Urine RBC 0 SEEN Urine WBC 0 SEEN Ur Squamous Epith Cells 0 SEEN Urine Bacteria 0 SEEN Urine Mucus 0 SEEN Radiography Diagnostic Testing: Clinical Impression(s) from Imaging Studies Abdomen/Pelvis CT 05/01/23 13:51 IMPRESSION: Sigmoid diverticulosis. Stable bilateral renal cysts. Nonobstructive calculi in both kidneys. Fatty infiltration of the liver. Electronically Signed: Manohar Kasper MD at 14:37 EDT , Discharge Plan Triage Chief Complaint: Abd Pain ED Provider: Cheo Reynoso Dx/Rx/DC Orders Clinical Impression: Abdominal pain, Strain of abdominal wall Instructions: ED Muscle Strain, Abdomen, ED Abdominal Pain Unkn Cause Male... Prescriptions: No Action albuterol sulfate [ProAir HFA] 1 PUFF inhaler 2 puff inhalation Q4H PRN PRN (Reason: Sob &/Or Wheezing) trazodone 150 MG tablet 150 mg PO DAILY Primary Care Provider: Care Physician,No Primary Referrals: Bernardo Agustin MD [Non-Staff] - 1 Week if not improving Disposition Disposition: Home, Self Care What to do if you have Problems For any increased pain, shortness of breath, bleeding, nausea or vomiting, chestpain, or any unexpected problems, contact your Primary Care Provider. Call [facility] ([phone]) or report to the closest Emergency Room. Call 911 if necessary. 05/01/23 1548 <Electronically signed by Cheo Reynoso MD> Cosigner Signature (if applicable): CC: No Primary Care Physician ~ Signed [facility] Work Phone: [phone]) 909-911810-30-2023 Hospital Discharge instructions Patient Education 04/27/2023 11:49:59 Sty Sty (or Stye) A sty is an infection of the oil gland of the eyelid. It may develop into a small pocket of pus (anabscess). This can cause pain, redness, and swelling. In early stages, a sty is treated with antibiotic cream, eye drops, or a small towel soaked in warm water (a warm compress). More severe cases may need to be opened and drained by a healthcare provider. Home care Eye drops or ointment are usually prescribed to treat the infection. Use these as directed. Artificial tears may also be used to lubricate the eye and make it more comfortable. You can buy these over the counter without a prescription. Talk with your healthcare provider before using any arvj-wuh-gevozlh treatment for a sty. Apply a warm, damp towel to the affected eye for at least 5 minutes, 3 to 4 times a day for a week.Warm compresses open the pores and speed the healing. But if the compresses are too hot, they may burn your eyelid. Sometimes the sty will drain with this treatment alone. If this happens, keep using the antibiotic until all the redness and swelling are gone. Wash your hands before and after touching the infected eyelid to avoid spreading the infection. Don t squeeze or try to break open the sty. Follow-up care Follow up with your healthcare provider, or as advised. When to seek medical advice Call your healthcare provider right away if any of these occur: Increase in swelling or redness around the eyelid after 48 to 72 hours Increase in eye pain or the eyelid blisters Increase in warmth the eyelid feels hot Drainage of blood or thick pus from the sty Blister on the eyelid Inability to open the eyelid due to swelling Fever of 100.4 F (38 C) or above, or as directed by your provider Vision changes Headache or stiff neck The sty comes back [id number] The [employer] ([employer]). [address] [place] [id number]. All rights reserved. This information is not intended as a substitute for professional medical care. Always follow yourhealthcare professional's instructions. Follow Up Care 04/27/2023 11:15:51 With:[facility] Address: When:2-4 days With:Go to emergency room if symptoms worsen Address:Unknown When:2-4 days [facility] 10-30-2023 Note Discharge Instructions Thank you for allowing [facility] to assist you with your healthcare needs. The following is importantdischarge information regarding your hospital visit. Diagnosis from Today's Visit Eye pain Red eyelid What to Do Next Instructions from Your Care Team Continue warm compresses 3 times daily. No qualifying data available. Post Acute Orders No qualifying data available. You Need to Schedule the Following Appointments Follow Up with [facility] When Within 2-4 days Where: Follow Up with Go to emergency room if symptoms worsen When Within 2-4 days Allergies Tape Vicodin Medications Please ask your primary doctor or pharmacist before taking any other medication not listed, including over the counter drugs, herbal medications, vitamins and or supplements as they may interact withyour home medications. What How Much When Instructions Last Dose New bacitracin-polymyxin B ophthalmic (bacitracin-polymyxin B ophthalmic ointment) 0.25 Inch(es) Ophthalmic Four (4) times a day O.D. Printed Prescription New doxycycline (doxycycline monohydrate 100 mg oral capsule) 1 cap by mouth Two (2) times a day Duration: 10 Days Printed Prescription Unchanged albuterol (albuterol MDI (90 mcg/ inh) CFC free inhalation aerosol) 1 puff(s) by inhalation Four (4) times a day as needed for as needed for wheezing Unchanged aspirin (H[place]olito Childrens Aspirin 81 mg oral tablet, (chewable)) 1 tab(s) by mouth Once a day Unchanged hydroCHLOROthiazide (hydroCHLOROthiazide 25 mg oral tablet) take 1 tablet by mouth once daily Unchanged traZODone 250 Milligram by mouth Daily at bedtime Please take this list to your next doctor s visit. Bring all medications you take, including over the counter medications, herbals and other supplements with you to your doctor s visit. Patients and families are reminded to discard old lists and to update any records with all medication providers or retail pharmacies. Medication Leaflets bacitracin and polymyxin B ophthalmic (BAS i TRAY sin and FRANK ee MIX in B off THAL rosaele) Polycin What is the most important information I should know about bacitracin and polymyxin B ophthalmic? Do not use this medicine if you have a viral or fungal infection in your eye. Bacitracin and polymyxin B ophthalmic treats only infections that are caused by bacteria. What is bacitracin and polymyxin B ophthalmic? Bacitracin and polymyxin B are antibiotics that kill bacteria. Bacitracin and polymyxin B ophthalmic (for the eyes) is a combination medicine used to treat bacterial infections of the eyes or eyelids. Bacitracin and polymyxin B ophthalmic may also be used for purposes not listed in this medication guide. What should I discuss with my healthcare provider before using bacitracin and polymyxin B ophthalmic? You should not use this medicine if you are allergic to bacitracin or polymyxin B. Do not use bacitracin and polymyxin B ophthalmic if you have a viral or fungal infection in your eye. This medicine treats only infections that are caused by bacteria. You should not use bacitracin and polymyxin B ophthalmic to treat any eye infection that has not been checked by your doctor. To make sure this medicine is safe for you, tell your doctor about all your medical conditions or allergies. It is not known whether this medicine will harm an unborn baby. Tell your doctor if you are or plan to become . It is not known whether bacitracin and polymyxin B passes into breast milk or if it could affect the nursing baby. Tell your doctor if you are breast-feeding. Bacitracin and polymyxin B ophthalmic is not approved for use by anyone younger than 18 years old. How should I use bacitracin and polymyxin B ophthalmic? Follow all directions on your prescription label. Do not use this medicine in larger or smaller amounts or for longer than recommended. Wash your hands before using eye medication. To apply the ointment: Tilt your head back slightly and pull down your lower eyelid to create a small pocket. Hold the ointment tube with the tip pointing toward this pocket. Look up and away from the tip. Squeeze out a ribbon of ointment into the lower eyelid pocket without touching the tip of the tube to your eye. Blink your eye gently and then keep it closed for 1 or 2 minutes. Use a tissue to wipe excess ointment from your eyelashes. After opening your eyes, you may have blurred vision for a short time. Avoid driving or doing anything that requires you to be able to see clearly. Do not touch the tip of the ointment tube or place it directly on your eye. A contaminated tube tipcan infect your eye, which could lead to serious vision problems. This medicine is usually applied every 3 or 4 hours for up to 10 days. Follow your doctor's dosing instructions very carefully. Use this medicine for the full prescribed length of time. Your symptoms may improve before the infection is completely cleared. Skipping doses may also increase your risk of further infection that isresistant to antibiotics. Call your doctor if your symptoms do not improve, or if they get worse. Store at room temperature away from moisture and heat. Do not freeze. Keep the tube tightly closed when not in use. What happens if I miss a dose? Apply the missed dose as soon as you remember. Skip the missed dose if it is almost time for your next scheduled dose. Do not use extra medicine to make up the missed dose. What happens if I overdose? An overdose of bacitracin and polymyxin B ophthalmic is not expected to be dangerous. Seek emergency medical attention or call the Poison Help line at if anyone has accidentally swallowed the medication. What should I avoid while using bacitracin and polymyxin B ophthalmic? This medicine may cause blurred vision. Be careful if you drive or do anything that requires you irene able to see clearly. Do not use other eye medications unless your doctor tells you to. What are the possible side effects of bacitracin and polymyxin B ophthalmic? Get emergency medical help if you have signs of an allergic reaction: hives; difficult breathing; swelling of your face, lips, tongue, or throat. Stop using this medicine and call your doctor at once if you have: severe itching, redness, or swelling of your eyelids; eye pain, redness, or watering; vision changes, increased sensitivity to light; white patches on your eyes; crusting or drainage from your eyes; or any new signs of infection. Common side effects may include: mild eye redness or itching; or puffy eyelids. This is not a complete list of side effects and others may occur. Call your doctor for medical advice about side effects. You may report side effects to FDA at 0-924-KTT-1364. What other drugs will affect bacitracin and polymyxin B ophthalmic? It is not likely that other drugs you take orally or inject will have an effect on bacitracin and polymyxin B used in the eyes. But many drugs can interact with each other. Tell each of your healthcare providers about all medicines you use, including prescription and xkgk-uum-wjqrrci medicines, vitamins, and herbal products. Where can I get more information? Your pharmacist can provide more information about bacitracin and polymyxin B ophthalmic. Remember, keep this and all other medicines out of the reach of children, never share your medicines with others, and use this medication only for the indication prescribed. Every effort has been made to ensure that the information provided by [employer]. ('[employer]') is accurate, up-to-date, and complete, but no guarantee is made to that effect. Drug information contained herein may be time sensitive. [employer] information has been compiled for use by healthcare practitioners and consumers in the [place] and therefore [employer] does not warrant that uses outside of the [place] are appropriate, unless specifically indicated otherwise. [employer] drug information does not endorse drugs, diagnose patients or recommend therapy. [employer] drug information isan informational resource designed to assist licensed healthcare practitioners in caring for their p atients and/or to serve consumers viewing this service as a supplement to, and not a substitute for, the expertise, skill, knowledge and judgment of healthcare practitioners. The absence of a warningfor a given drug or drug combination in no way should be construed to indicate that the drug or drug combination is safe, effective or appropriate for any given patient. [employer] does not assume any responsibility for any aspect of healthcare administered with the aid of information [employer] provides. The information contained herein is not intended to cover all possible uses, directions, precautions, warnings, drug interactions, allergic reactions, or adverse effects. If you have questions about the drugs you are taking, check with your doctor, nurse or pharmacist. Copyright 5908-0849 [employer]. Version: 7.01. Revision Date: 01/29/2023. doxycycline (oral/injection) (DOX richardson quintero) Acticlate, Adoxa, Alodox, Avidoxy, Doryx, Doryx MPC, Lymepak, Mondoxyne NL, Monodox, Morgidox, Morgidox 5q139lh, Morgidox 4d765ri, O[place]bo, Oracea, Targadox, Vibramycin, Vibramycin Monohydrate What is the most important information I should know about doxycycline? You should not take this medicine if you are allergic to any tetracycline antibiotic. Children younger than 8 years old should use doxycycline only in cases of severe or life-threatening conditions. This medicine can cause permanent yellowing or graying of the teeth in children Using doxycycline during could harm the unborn baby or cause permanent tooth discoloration later in the baby's life. What is doxycycline? Doxycycline is a tetracycline antibiotic that Doxycycline is used to treat many different bacterial infections, such as acne, urinary tract infections, intestinal infections, eye infections, gonorrhea, chlamydia, periodontitis (gum disease), andothers. Doxycycline is also used to treat blemishes, bumps, and acne-like lesions caused by rosacea. Doxycycline will not treat facial redness caused by rosacea. Some forms of doxycycline are used to prevent malaria, to treat anthrax, or to treat infections caused by mites, ticks, or lice. Doxycycline may also be used for purposes not listed in this medication guide. What should I discuss with my healthcare provider before taking doxycycline? You should not take this medicine if you are allergic to doxycycline or other tetracycline antibiotics such as demeclocycline, minocycline, tetracycline, or tigecycline. Tell your doctor if you have ever had: liver disease; kidney disease; asthma or sulfite allergy; increased pressure inside your skull; or if you also take isotretinoin, seizure medicine, or a blood thinner such as warfarin (Coumadin). If you are using doxycycline to treat gonorrhea, your doctor may test you to make sure you do not also have syphilis, another sexually transmitted disease. Taking this medicine during may affect tooth and bone development in the unborn baby. Taking doxycycline during the last half of can cause permanent tooth discoloration later in the baby's life. Tell your doctor if you are or if you become . Doxycycline can make control pills less effective. Ask your doctor about using a non-hormonalbirth control (condom, diaphragm with spermicide) to prevent . Doxycycline can pass into breast milk and may affect bone and tooth development in a nursing infant. Do not breastfeed while you are taking doxycycline. Doxycycline can cause permanent yellowing or graying of the teeth in children younger than 8 years old. Children should use doxycycline only in cases of severe or life-threatening conditions such as anthrax or [place] spotted fever. The benefit of treating a serious condition may outweigh any risks to the child's tooth development. How should I take doxycycline? Follow all directions on your prescription label and read all medication guides or instruction sheets. Use the medicine exactly as directed. Take doxycycline with a full glass of water. Drink plenty of liquids while you are taking doxycycline. Read and carefully follow any Instructions for Use provided with your medicine. Ask your doctor or pharmacist if you do not understand these instructions. Most brands of doxycyline may be taken with food or milk if the medicine upsets your stomach. Different brands of doxycycline may have different instructions about taking them with or without food. Take Oracea on an empty stomach, at least 1 hour before or 2 hours after a meal. You may need to split a doxycycline tablet to get the correct dose. Follow your doctor's instructions. Swallow a delayed-release capsule or tablet whole. Do not crush, chew, break, or open it. Measure liquid medicine with the dosing syringe provided, or with a special dose-measuring spoon ormedicine cup. If you do not have a dose-measuring device, ask your pharmacist for one. If you take doxycycline to prevent malaria: Start taking the medicine 1 or 2 days before entering an area where malaria is common. Continue taking the medicine every day during your stay and for at least 4 weeks after you leave the area. Doxycycline is usually given by injection only if you are unable to take the medicine by mouth. A healthcare provider will give you this injection as an infusion into a vein. Use this medicine for the full prescribed length of time, even if your symptoms quickly improve. Skipping doses can increase your risk of infection that is resistant to medication. Doxycycline will not treat a viral infection such as the flu or a common cold. Store at room temperature away from moisture, heat, and light. Throw away any unused medicine after the expiration date on the label has passed. Using doxycycline can cause damage to your kidneys. What happens if I miss a dose? Take the medicine as soon as you can, but skip the missed dose if it is almost time for your next dose. Do not take two doses at one time. What happens if I overdose? Seek emergency medical attention or call the Poison Help line at . What should I avoid while taking doxycycline? Do not take iron supplements, multivitamins, calcium supplements, antacids, or laxatives within 2 hours before or after taking doxycycline. Avoid taking any other antibiotics with doxycycline unless your doctor has told you to. Doxycycline could make you sunburn more easily. Avoid sunlight or tanning beds. Wear protective clothing and use sunscreen (SPF 30 or higher) when you are outdoors. Antibiotic medicines can cause diarrhea, which may be a sign of a new infection. If you have diarrhea that is watery or bloody, call your doctor. Do not use anti-diarrhea medicine unless your doctor tells you to. What are the possible side effects of doxycycline? Get emergency medical help if you have signs of an allergic reaction (hives, difficult breathing, swelling in your face or throat) or a severe skin reaction (fever, sore throat, burning in your eyes,skin pain, red or purple skin rash that spreads and causes blistering and peeling). Seek medical treatment if you have a serious drug reaction that can affect many parts of your body.Symptoms may include: skin rash, fever, swollen glands, flu- like symptoms, muscle aches, severe weakness, unusual bruising, or yellowing of your skin or eyes. This reaction may occur several weeks after you began using doxycycline. Call your doctor at once if you have: severe stomach pain, diarrhea that is watery or bloody; throat irritation, trouble swallowing; chest pain, irregular heart rhythm, feeling short of breath; little or no urination; low white blood cell counts--fever, chills, swollen glands, body aches, weakness, pale skin, easy bruising or bleeding; increased pressure inside the skull--severe headaches, ringing in your ears, dizziness, nausea, vision problems, pain behind your eyes; or signs of liver or pancreas problems--loss of appetite, upper stomach pain (that may spread to your back), tiredness, nausea or vomiting, fast heart rate, dark urine, jaundice (yellowing of the skin or eyes). Common side effects may include: nausea, vomiting, upset stomach, loss of appetite; mild diarrhea; skin rash or itching; darkened skin color; or vaginal itching or discharge. This is not a complete list of side effects and others may occur. Call your doctor for medical advice about side effects. You may report side effects to FDA at 5-390-IZV-8272. What other drugs will affect doxycycline? Sometimes it is not safe to use certain medications at the same time. Some drugs can affect your blood levels of other drugs you take, which may increase side effects or make the medications less effective. Other drugs may affect doxycycline, including prescription and vang-ern-jeqsvxl medicines, vitamins, and herbal products. Tell your doctor about all your current medicines and any medicine you start or stop using. Where can I get more information? Your pharmacist can provide more information about doxycycline. Remember, keep this and all other medicines out of the reach of children, never share your medicines with others, and use this medication only for the indication prescribed. Every effort has been made to ensure that the information provided by [employer]. ('[employer]') is accurate, up-to-date, and complete, but no guarantee is made to that effect. Drug information contained herein may be time sensitive. [employer] information has been compiled for use by healthcare practitioners and consumers in the [place] and therefore [employer] does not warrant that uses outside of the [place] are appropriate, unless specifically indicated otherwise. [employer] drug information does not endorse drugs, diagnose patients or recommend therapy. [employer] drug information isan informational resource designed to assist licensed healthcare practitioners in caring for their p atients and/or to serve consumers viewing this service as a supplement to, and not a substitute for, the expertise, skill, knowledge and judgment of healthcare practitioners. The absence of a warningfor a given drug or drug combination in no way should be construed to indicate that the drug or drug combination is safe, effective or appropriate for any given patient. [employer] does not assume any responsibility for any aspect of healthcare administered with the aid of information [employer] provides. The information contained herein is not intended to cover all possible uses, directions, precautions, warnings, drug interactions, allergic reactions, or adverse effects. If you have questions about the drugs you are taking, check with your doctor, nurse or pharmacist. Copyright 5233-9805 [employer]. Version: 25.. Revision Date: 03/04/2023. Education Materials Sty (or Stye) A sty is an infection of the oil gland of the eyelid. It may develop into a small pocket of pus (anabscess). This can cause pain, redness, and swelling. In early stages, a sty is treated with antibiotic cream, eye drops, or a small towel soaked in warm water (a warm compress). More severe cases may need to be opened and drained by a healthcare provider. Home care Eye drops or ointment are usually prescribed to treat the infection. Use these as directed. Artificial tears may also be used to lubricate the eye and make it more comfortable. You can buy these over the counter without a prescription. Talk with your healthcare provider before using any dleb-ini-pnuhbwd treatment for a sty. Apply a warm, damp towel to the affected eye for at least 5 minutes, 3 to 4 times a day for a week.Warm compresses open the pores and speed the healing. But if the compresses are too hot, they may burn your eyelid. Sometimes the sty will drain with this treatment alone. If this happens, keep using the antibiotic until all the redness and swelling are gone. Wash your hands before and after touching the infected eyelid to avoid spreading the infection. Don t squeeze or try to break open the sty. Follow-up care Follow up with your healthcare provider, or as advised. When to seek medical advice Call your healthcare provider right away if any of these occur: Increase in swelling or redness around the eyelid after 48 to 72 hours Increase in eye pain or the eyelid blisters Increase in warmth the eyelid feels hot Drainage of blood or thick pus from the sty Blister on the eyelid Inability to open the eyelid due to swelling Fever of 100.4 F (38 C) or above, or as directed by your provider Vision changes Headache or stiff neck The sty comes back 6740-2064 The Consumer Agent Portal (CAP). [address] [place] [address], [place] [address]. All rights reserved. This information is not intended as a substitute for professional medical care. Always follow yourhealthcare professional's instructions. Additional Information VACCINATE! IT SAVES LIVES! Members of the community who have not yet received the COVID-19 vaccine and would like to receive it can visit one of [facility] vaccine clinics. There are many vaccine clinic locations within the [facility]. For locations and available times, please visit www.gettheshot.coronavirus.[place].gov/. It is important to note that some COVID mobile vaccine clinics are held outdoors and may be canceled in rainy or stormy conditions. To learn more about pediatric vaccinations (ages 5-11), we invite you to visit the [facility] webpage. https://www.[facility].org/pages/9357-Wejtx-Gvldryosxou-Tjraootkyx-Hzbmi-Iwv stions.htmlTo learn more about the COVID-19 vaccine, we invite you to visit the CDC website for a list of frequently asked questions. https://www.cdc.gov/coronavirus/2019-ncov/vaccines/faq.html [employer] Patient Portal Access Instructions: Stay connected with your healthcare team and access your personal medical information anytime with the [employer]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 abdomen soft nontender Lines, Drains, and Airways Line Duration Peripheral 02/23/23 1048 [facility] Short Right Forearm 20 Gauge 1 day Peripheral 02/23/23 1513 [facility] Short Left Antecubital 22 Gauge 1 day DATA: Diagnostic Tests Reviewed for Today's Visit: CBC, Coags, BMP, Mg, Phos Recent Labs 02/25/23 0556 02/24/23 0611 02/23/23 1048 WBC 22.78* 12.90* 8.60 HB 12.7* 13.2 14.8 HCT 36.9* 38.7* 43.7 PLT 332 294 319 NA 139 138 138 K 4.5 4.9 4.3 CHLOR 111* 108* 109* CO2 22 20* 24 BUN 18 11 11 CREAT 0.89 0.92 1.01 GLUC 142* 128* 91 CA 9.0 9.0 9.6 Liver Function, Amylase, AND Lipase Recent Labs 02/25/23 0556 02/24/23 0929 02/24/23 0611 TPROT 6.3 -- 7.0 ALB 3.1* -- 3.3 ALT 50 -- 78* AST 44* -- 131* ALKPHOS 145* -- 185* TBILI 0.2 -- 0.3 LACT -- 0.8 -- Impression/Recommendations Left periorbital cellulitis concern of community-acquired MRSA. Clinically improving. Okay to go home on oral antibiotics in form of doxycycline 100 mg twice a day for 10 more days, I did write the prescription. I will stop dexamethasone, which is contributing to his leukocytosis and hyperglycemia. SIGNATURE: Jess Ronquillo MD PATIENT NAME: Reji Victor DATE: February 25, 2023 TIME: 7:19 AM .[facility]08-29-2023 NoteHNO ID: [id number] Author: Donavon Harmon MD Service: General Internal Medicine Author Type: Physician Type: Progress Notes Filed: 02/24/2023 4:09 PM Note Text: INPATIENT PROGRESS NOTE SERVICE DATE: 02/24/2023 SERVICE TIME: 4:05 PM PRIMARY SERVICE: Hospital Medicine Subjective Patient was seen and examined bedside this morning. Reports that his left-sided orbital swelling much reduced. Current Facility-Administered Medications Medication Dose Route Frequency NaCl 0.9% iv flush bag 20 mL INTRAVENOUS PRN vancomycin dosing and monitoring per pharmacy OTHER As Directed hyoscyamine sublingual 0.125 mg tab(s) (LEVSIN SL) 0.125 mg SUBLINGUAL q 6 H PRN albuterol HFA 90 mcg/actuation 2 Puff (PROVENTIL HFA, VENTOLIN HFA) 2 Puff INHALATION q 4 H PRN famotidine 40 mg tab(s) (PEPCID) 40 mg ORAL DAILY magnesium oxide 400 mg tab(s) (MAG-OX) 400 mg ORAL DAILY meloxicam 15 mg tab(s) (MOBIC) 15 mg ORAL DAILY pantoprazole DR 40 mg tab(s) (PROTONIX) 40 mg ORAL DAILY (6 AM) traZODone 200 mg tab(s) (DESYREL) 200 mg ORAL AT BEDTIME enoxaparin 40 mg injection (LOVENOX) 40 mg SUBCUTANEOUS q 24 HR vancomycin 1.5 g in NaCl 0.9% 250 mL (VANCOCIN) 1.5 g INTRAVENOUS q 12 HR cyclobenzaprine 10 mg tab(s) (FLEXERIL) 10 mg ORAL TID PRN dexAMETHasone sodium phosphate 8 mg injection (DECADRON) 8 mg INTRAVENOUS q 8 H mupirocin 2 % ointment (BACTROBAN) TOPICAL TID Objective PHYSICAL EXAM: BP 103/55 Pulse 88 Temp (Src) 97.9 (Oral) Resp 18 Ht 5' 10 (1.78m) Wt 220 lb (99.8kg) SpO2 95% BMI 31.57 kg/(m2). O2 Therapy: Room Air GENERAL APPEARANCE: Not in acute distress. EXTREMITIES: No cyanosis, clubbing. No edema HEENT: Normocephalic and atraumatic. Left-sided orbital cellulitis much improving, erythema and swelling reduced. NECK: Supple. Trachea is midline. No thyromegaly. No lymphadenopathy or tenderness. No JVD CHEST: Symmetric. Nontender to palpation. Breath sounds equal bilaterally. no wheezing. HEART: Regular heart rate. S1-S2 heard. No gallops/murmurs/rubs ABDOMEN: Soft, flat, and benign. No mass, tenderness, guarding, or rebound. No organomegaly or hernia. Bowel sounds are present. No CVA tenderness or flank mass. NEUROLOGIC: No gross focal sensory or motor deficits are noted. PSYCHIATRIC: Appropriate mood and affect. DATA: LABORATORY TESTS: CBC: Recent Labs 02/24/23 0611 02/23/23 1048 WBC 12.90* 8.60 HB 13.2 14.8 PLT 294 319 MCV 89.6 91.0 NEUTP -- 66.9 ABSNEUT -- 5.74 LYMPHP -- 25.3 CHEM: Recent Labs 02/24/23 0611 02/23/23 1048 NA 138 138 K 4.9 4.3 CA 9.0 9.6 ANION 10 5 CHLOR 108* 109* CO2 20* 24 GLUC 128* 91 BUN 11 11 CREAT 0.92 1.01 HEPATIC: Recent Labs 02/24/23 0611 ALT 78* AST 131* TBILI 0.3 ALKPHOS 185* ALB 3.3 TPROT 7.0 URINALYSIS:No results for input(s): SPGR, UBACTERIA, LEUKEST, SSA, UWBC, URBC, UHB, UPROT, UGLUC, UKET in the last 168 hours. Invalid input(s): NITR COAG: No results for input(s): APTT, INR in the last 168 hours. CARDIAC: No results for input(s): CKMB, CKMBP, TROPT, PBNP in the last 168 hours. DATA: Diagnostic tests reviewed for today's visit: Most recent labs and imaging results. Most recent EKG Urine Culture: Positive Micro-30 Days No results found for the last 720 hours. Blood Culture: Positive Micro-30 Days No results found for the last 720 hours. Medication and Non-Pharmacologic VTE Prophylaxis/Anticoagulants Anticoagulant AND Antiplatelet Medications (From admission, onward) Start Dose Route Frequency Last Action Ordered Stop 02/23/23 1700 enoxaparin 40 mg injection (LOVENOX) (Medical Risk Categories) 40 mg SUBCUTANEOUS EVERY 24 HOURS Given, 02/23 1744 02/23/23 1644 -- 02/23/23 1645 activity - mobilize patient (la,ne) VTE Prophylaxis: VTE prophylaxis appropriate Assesment: 1. Left-sided preseptal and infraorbital cellulitis 2. Transaminitis 3. Leukocytosis -ENT suggested no surgical intervention as there is no drainable abscess noted, also suggested MRSA coverage for oral antibiotics upon discharge, appreciate their input. -Infectious disease has been consulted, suggested continuing vancomycin and discontinue dexamethasone. -Continue vancomycin 1.25 mg once daily, pharmacy consult placed. We will discontinue dexamethasone. -Acute transaminitis noted, likely sepsis related however will obtain RUQ ultrasound, results pending. Discharge: Likely tomorrow with oral antibiotics per ID. Disclaimer This dictation was created using voice recognition software. Phonetic and/or minor grammatical errors may exist. SIGNATURE: Donavon Harmon MD PATIENT NAME: Reji Victor DATE: February 24, 2023 TIME: 4:05 PM[facility]23 NoteHNO ID: [id number] Author: Diana Verdugo RN Service: Care Management Author Type: Registered Nurse Type: Care Mgt Initial Assessment Filed: 02/24/2023 1:09 PM Note Text: CARE MANAGEMENT: ASSESSMENT AND DISCHARGE PLAN SERVICE DATE: February 24, 2023 SERVICE TIME: 844 PCP: Maggie Hess MD Primary Contact: Extended Emergency Contact Information Primary Emergency Contact: Yue Victor Address: [address] [place] [address] [place] Mobile Relation: Spouse Secondary Emergency Contact: Abad Lowry Mobile Relation: Father Admission Status: Inpatient Insurance Provider: [employer] [place] Discharge Planning requested by: Per Department Practice Potential Transition Plans Home;Outpatient Therapy;To Be Determined Advance Directives Current Advance Directive: Health Care Power of [place] Block Setter In Chart: Yes Up To Date and Valid: Yes Current Living Arrangements and Support Lives with: Type of Residence: Private Residence (Apartment or Condo) Support: Spouse/significant other, Family members How do you manage to accomplish the following: Independent: Ambulation;Bathe/Shower;Dress;Meals/Meal Prep;Going to the bathroom;Medication Management Dependent: Transportation to appointments/community Current Services/Equipment Discharge Planning Patient Goal(s): Be able to go home, General wellness [place] Explained: Are you interested in bedside delivery of your medications? No Discharge Planning Participant(s): Patient Patient/Family Comments: Caregiver Assessment: Transport at Discharge: Transportation Arrangements: Car Needs Prior to Discharge: Needs Prior to Discharge: To Be Determined Post-Acute Discharge Plan: Chart reviewed. Pt came to the hospital from home for facial pain and is being treated for infraorbital cellulitis. He attempted to have an I and D of the site at [facility] but they were unable to drain any fluid. ENT is following and he is pending ID consult. At his baseline he is independent in his ADL's with the exception of transport which he gets from his insurance and uses buses. His DME includes a cane and he is established with outpatient PT at [facility] to start on 03/05. He is current with his PCP and can afford his medications. At this time his plan is to return home with established outpatient therapy when medically cleared. SIGNATURE: Diana Verdugo RN PATIENT NAME: Reji Victor DATE: February 24, 2023 TIME: 1:03 PM CONTACT #: [phone]08-28-2023 NoteHNO ID: [id number] Author: Huy Puga MD Service: Hospital Medicine Author Type: Physician Type: Plan of Care Filed: 02/23/2023 6:51 PM Note Text: Dr Valerio recommended IV 8 mg dexamethasone q8h for now till clinical improvement. Ordered the same.[facility]08-28-2023 NoteHNO ID: [id number] Author: Scott Main RPh Service: ? Author Type: Pharmacist Type: Plan of Care Filed: 02/23/2023 2:32 PM Note Text: PHARMACY MEDICATION REVIEW Patient Name: Reji Victor : 1975 The below information represents the best possible medication history: Yes Medication history completed by: ED Pharmacist Scott Main RPh Source of history: Patient: Reliability of source: Appears reliable, clearly identified: Medication name, Medication dose, Medication route, Medication frequency, Timing of last dose, and Indications and Pharmacy records: [facility] Medication nonadherence identified: No barriers noted Preferred outpatient pharmacy: [id number] [place] [address] - [address] [facility] [phone] [id number] Allergies: Adhesive Tape-Silic* Rash Hydrocodone-Acetami* GI Upset Prior to Admission Medications Prescriptions Last Dose Informant Patient Reported? Taking? albuterol HFA (PROVENTIL HFA, VENTOLIN HFA) 90 mcg/actuation inhaler No Yes Sig: Inhale 2 Puffs as instructed every 4 hours as needed. Patient taking differently: Inhale 2 Puffs as instructed every 4 hours as needed for wheezing/shortness of breath. cephALEXin (KEFLEX) 500 mg capsule Yes Yes Sig: Take 500 mg by mouth four times daily. Start 02/22/23 for 7 days famotidine (PEPCID) 40 mg tablet Yes Yes Sig: Take 40 mg by mouth twice daily. hyoscyamine sublingual (LEVSIN SL) 0.125 mg No Yes Sig: dissolve 1 tablet under the tongue every 4 hours if needed Patient taking differently: Dissolve 0.125 mg under the tongue every 4 hours as needed. magnesium oxide (MAG-OX) 400 mg (241.3 mg magnesium) tablet Yes Yes Sig: Take 1 tablet by mouth once daily. meloxicam (MOBIC) 15 mg tablet Yes Yes Sig: Take 15 mg by mouth once daily. omeprazole (PRILOSEC) 40 mg capsule Yes Yes Sig: Take 40 mg by mouth once daily. sulfamethoxazole-trimethoprim (BACTRIM DS) 800-160 mg per tablet Yes Yes Sig: Take 1 tablet by mouth every 12 hours. Start 02/22/23 for 7 days traZODone (DESYREL) 100 mg tablet Yes Yes Sig: Take 200 mg by mouth daily at bedtime. Facility-Administered Medications: None Scott Main RPh 02/23/2023[facility]08[facility] NoteHNO ID: [id number] Author: Cedrick Dash MD Service: ? Author Type: Physician Type: Progress Notes Filed: 02/19/2023 11:01 AM Note Text: [facility] New Patient Consultation Maggie Jimena [address] [place] [id number] [address] Hess for an opinion regarding low back pain. My final recommendations will be communicated back to the requesting physician by way of shared Medical record or letter to requesting physician via US mail. CC: Low back pain Subjective History of Present Illness: Mr. Victor is a pleasant 47yo gentleman with a history of falling on 01/29/2023 and hurting his back. Due to low back pain he was seen at [facility] ED and underwent a lumbar spine CT that showed no signs of fractures. He has been followed previously by pain management for back pain and has been diagnosed with lumbar facet arthropathy. He received epidural injection with some symptomatic relief. He was referred to our office to discuss treatment options. He refers that the pain is on his lower back and radiates to the posteroior aspect of his thighs with some numbness. He denies bowel or bladder problems. He is an active smoker. Duration: Chronic (> 3 months) Pain Description: Pain is described as aching, constant and persistent Aggravating Factors: twisting, flexion, and extension Alleviating Factors: injections: trigger point Treatment: pain management chronic; relief Yes. Improvement Over Recent Past: no Prior Spine Surgery: no Number of Past Spine Surgeries: 0 History of bowel or bladder dysfunction: No History of spinal trauma: No History of previous spinal surgery: No Therapy Status Data Form Past Medical History: PAST MEDICAL HISTORY Diagnosis Date Asthma Colon polyps GI in [place] COPD (chronic obstructive pulmonary disease) (HCC) FHx: colon cancer Mother GERD (gastroesophageal reflux disease) Hiatal hernia HTN (hypertension) Incisional hernia 04/14/2018 Added automatically from request for surgery [id number] Kidney stone Lower abdominal pain 06/11/2017 Microhematuria 06/11/2017 Mitral valve prolapse Multiple thyroid nodules Obesity (BMI 30.0-34.9) Osteoarthritis right knee PTSD (post-traumatic stress disorder) Spinal stenosis Tobacco use Quit 11/2017 Umbilical hernia 04/14/2018 Added automatically from request for surgery [id number] Past Surgical History: PAST SURGICAL HISTORY Procedure Laterality Date ARTHROSCOPY KNEE DIAGNOSTIC W/WO SYNOVIAL BX SPX Right 2000 Arthroscopy, knee CAPSULE ENDOSCOPY ESOPHAGEAL 11/25/2019 CHOLECYSTECTOMY 2015 COLONOSCOPY 06/2017 Normal COLONOSCOPY 2017 polyps COLONOSCOPY 08/25/2018 normal, repeat in [address] Quintanilla COLONOSCOPY FLX DX W/COLLJ SPEC WHEN PFRMD 08/15/2019 normal, repeat in 5 years due to family history CYSTOSCOPY,+URETEROSCOPY EGD 2016 Small hiatal hernia EGD 01/2018 EGD 08/25/2018 gastritis, GERD, hiatal hernia EGD 08/15/2019 Duodenitis, gastritis. Neg. - H. Pylori. EYE SURGERY HX GI TRC IMG INTRALUMINAL ESOPHAGUS-ILEUM W/IANDR 11/25/2019 Delayed gastric transit. Rapid small bowel transit. Otherwise normal LEG SURGERY HX Right 1999 ORIF Tib-fib PAST SURGICAL HISTORY OF Right 2000 Hardware removal right leg PAST SURGICAL HISTORY OF 12/2019 Back injections REPAIR FIRST ABDOMINAL WALL HERNIA 04/28/2018 Hernia repair, incisional SIGMOIDOSCOPY 11/03/2019 poor anal sphincter tone Family History: FAMILY HISTORY Problem Relation Age of Onset Colon Cancer Mother early 50s Diabetes Mother Heart Mother Hypertension Mother Diabetes Father Heart Father [place] at age 63 Hypertension Father Colon Cancer Father No Known Problems Sister Social History Tobacco Use Smoking status: Every Day Packs/day: 1.50 Years: 20.00 Additional pack years: 0.00 Total pack years: 30.00 Types: Cigarettes Smokeless tobacco: Current Types: Chew Tobacco comments: Quit smoking in 07/2017, started again end of 08/2017, quit again beginning of 11/2017 Vaping Use Vaping Use: Never used Substance Use Topics Alcohol use: Yes Comment: rarely Drug use: Yes Comment: CBD gummies Allergies: Adhesive Tape-Silicones and Hydrocodone-Acetaminophen Current Outpatient Medications Medication Sig meloxicam (MOBIC) 15 mg tablet Take 1 tablet by mouth once daily. magnesium oxide (MAG-OX) 400 mg (241.3 mg magnesium) tablet Take 1 tablet by mouth once daily. famotidine (PEPCID) 40 mg tablet take 1 tablet by mouth twice a day for HEARTBURN omeprazole (PRILOSEC) 40 mg capsule take 1 capsule by mouth every morning for HEARTBURN cyclobenzaprine (FLEXERIL) 10 mg tablet Take 1 tablet by mouth every 8 hours. traZODone (DESYREL) 100 mg tablet Take 200 mg by mouth daily at bedtime. hyoscyamine sublingual (LEVSIN SL) 0.125 mg dissolve 1 tablet under the tongue every 4 (more content not included)...[facility]08-24-2023 Note HNO ID: [id number] Author: Hermelinda Matthews RT(R) Service: Radiology Author Type: Technologist Type: Progress Notes Filed: 02/19/2023 10:30 AM Note Text: Summary: xr Radiology Service Progress Note PATIENT NAME: Reji Victor DATE OF SERVICE: February 19, 2023 TIME: 10:30 AM PATIENT IDENTITY VERIFICATION COMPLETED USING TWO (2) IDENTIFIERS: Name and Date of confirmed by patient verbally. FALL SCREENING: Has the patient had 2 falls in the last year or 1 fall with injury or currently using an Ambulatory Assistive Device (Walker, Cane, Wheelchair, Crutches, etc.)? No PATIENT GENDER DATA: Male PATIENT RELEVANT IMPLANT DATA REVIEWED: Not Applicable RADIOLOGY DEPARTMENT: General X-ray: Exam(s) Completed: Spine X-Ray(s): Lumbar AP / LAT / L5-S1 PERIPHERAL IV DATA: Not applicable SIGNED BY: RT Tammy(R) February 19, 2023 10:30 [facility]08-24-2023 Nurse Note* Ema Cornejo MA - 02/19/2023 10:34 AM EDT 47 y/o male presents to office with concerns of low back pain. He reports he was diagnosed with spinal stenosis. Pt states he receives trigger point injections, however recently they are no longer working for him. He has completed PT and found no relief;currently taking Flexeril for pain that is being prescribed by his PCP. He states this is helping the spasms-however is not relieving any pain. He has not been seen by pain management. Pain has been occurring for 3+ years and said he was moving and felt pain while picking up a box. [facility] History of Present illness Narrative* Cedrick Dash MD - 02/19/2023 10:30 AM EDT Images from the original note were not included. [facility] New Patient Consultation Maggie Hess [address] [id number] [address] Hess for an opinion regarding low back pain. My final recommendations will be communicated back to the requesting physician by way of shared Medical record or letter to requesting physician via US mail. CC: Low back pain Subjective History of Present Illness: Mr. Victor is a pleasant 47yo gentleman with a history of falling on 01/29/2023 and hurting his back. Due to low back pain he was seen at [facility] ED and underwent a lumbar spine CT that showed no signs of fractures. He has been followed previously by pain management for back pain and has been diagnosed with lumbar facet arthropathy. He received epidural injection with some symptomatic relief. He was referred to our office to discuss treatment options. He refers that the pain is on his lower back and radiates to the posteroior aspect of his thighs with some numbness. He denies bowel or bladder problems. He is an active smoker. Duration: Chronic (> 3 months) Pain Description: Pain is described as aching, constant and persistent Aggravating Factors: twisting, flexion, and extension Alleviating Factors: injections: trigger point Treatment: pain management chronic; relief Yes. Improvement Over Recent Past: no Prior Spine Surgery: no Number of Past Spine Surgeries: 0 History of bowel or bladder dysfunction: No History of spinal trauma: No History of previous spinal surgery: No Therapy Status Data Form Past Medical History: PAST MEDICAL HISTORY Diagnosis Date Asthma Colon polyps GI in [place] COPD (chronic obstructive pulmonary disease) (HCC) FHx: colon cancer Mother GERD (gastroesophageal reflux disease) Hiatal hernia HTN (hypertension) Incisional hernia 04/14/2018 Added automatically from request for surgery [id number] Kidney stone Lower abdominal pain 06/11/2017 Microhematuria 06/11/2017 Mitral valve prolapse Multiple thyroid nodules Obesity (BMI 30.0-34.9) Osteoarthritis right knee PTSD (post-traumatic stress disorder) Spinal stenosis Tobacco use Quit 11/2017 Umbilical hernia 04/14/2018 Added automatically from request for surgery [id number] Past Surgical History: PAST SURGICAL HISTORY Procedure Laterality Date ARTHROSCOPY KNEE DIAGNOSTIC W/WO SYNOVIAL BX SPX Right 2000 Arthroscopy, knee CAPSULE ENDOSCOPY ESOPHAGEAL 11/25/2019 CHOLECYSTECTOMY 2014 COLONOSCOPY 06/2017 Normal COLONOSCOPY 2017 polyps COLONOSCOPY 08/25/2018 normal, repeat in [address] Quintanilla COLONOSCOPY FLX DX W/COLLJ SPEC WHEN PFRMD 08/15/2019 normal, repeat in 5 years due to family history CYSTOSCOPY,+URETEROSCOPY EGD 2016 Small hiatal hernia EGD 01/2018 EGD 08/25/2018 gastritis, GERD, hiatal hernia EGD 08/15/2019 Duodenitis, gastritis. Neg. - H. Pylori. EYE SURGERY HX 1990s GI TRC IMG INTRALUMINAL ESOPHAGUS-ILEUM W/I&R 11/25/2019 Delayed gastric transit. Rapid small bowel transit. Otherwise normal LEG SURGERY HX Right 1999 ORIF Tib-fib PAST SURGICAL HISTORY OF Right 2000 Hardware removal right leg PAST SURGICAL HISTORY OF 12/2019 Back injections REPAIR FIRST ABDOMINAL WALL HERNIA 04/28/2018 Hernia repair, incisional SIGMOIDOSCOPY 11/03/2019 poor anal sphincter tone Family History: FAMILY HISTORY Problem Relation Age of Onset Colon Cancer Mother early 50s Diabetes Mother Heart Mother Hypertension Mother Diabetes Father Heart Father [place] at age 63 Hypertension Father Colon Cancer Father No Known Problems Sister Social History Tobacco Use Smoking status: Every Day Packs/day: 1.50 Years: 20.00 Additional pack years: 0.00 Total pack years: 30.00 Types: Cigarettes Smokeless tobacco: Current Types: Chew Tobacco comments: Quit smoking in 07/2017, started again end of 08/2017, quit again beginning of 11/2017 Vaping Use Vaping Use: Never used Substance Use Topics Alcohol use: Yes Comment: rarely Drug use: Yes Comment: CBD gummies Allergies: Adhesive Tape-Silicones and Hydrocodone-Acetaminophen Current Outpatient Medications Medication Sig meloxicam (MOBIC) 15 mg tablet Take 1 tablet by mouth once daily. magnesium oxide (MAG-OX) 400 mg (241.3 mg magnesium) tablet Take 1 tablet by mouth once daily. famotidine (PEPCID) 40 mg tablet take 1 tablet by mouth twice a day for HEARTBURN omeprazole (PRILOSEC) 40 mg capsule take 1 capsule by mouth every morning for HEARTBURN cyclobenzaprine (FLEXERIL) 10 mg tablet Take 1 tablet by mouth every 8 hours. traZODone (DESYREL) 100 mg tablet Take 200 mg by mouth daily at bedtime. hyoscyamine sublingual (LEVSIN SL) 0.125 mg dissolve 1 tablet under the tongue every 4 hours if needed albuterol HFA (PROVENTIL HFA, VENTOLIN HFA) 90 mcg/actuation inhaler Inhale 2 Puffs as instructed every 4 hours as needed. No current facility-administered medications for this visit. Review of systems: Constitutional: No recent fever or weight loss. Eyes: No history of glaucoma or cataracts. ENMT: No recent ear infection, nasal congestion, mouth sores or sore throat. CV: No history of chest pain, palpitations or leg swelling. Respiratory: No history of SOB, asthma or recent cough. Gastrointestinal: No history of nausea, vomiting, dysphagia or abdominal pain. Genitourinary: No history of hematuria or dysuria. Musculoskeletal: No complaint of arthritis, unstable gait or arm/leg weakness. Psychiatric: No history of hallucinations or depression or anxiety. ROS Neurological: No complaint of headache. No complaint of tinnitus. No complaint of decreased hearing. No complaint of diplopia. No complaints of decreased visual acuity. No complaint of arm/leg numbness. No problem with limb coordination. No complaint of syncope, seizures or disorientation. Objective Physical Exam: There were no vitals taken for this visit. Neurological: Higher integrative functions: Oriented to person, place & time. Memory: Good recent and remote. Attention Span and Concentration: Good. Language: Accurate naming of objects. Good comprehension. Fund of Knowledge: Good. 2nd CN: Full visual buchanan. 3rd,4th,6th CN: Pupils (=), round, react to light, full extraocular movements. 5th CN: No decrease in facial sensation. 7th CN: Facial muscles symmetric and strong. 8th CN: Hears finger rub well bilaterally. 9th CN: Good gag. 10th CN: Spontaneous palate movement, full and symmetric. 11th CN: Full strength in shoulder shrug. 12th CN: Tongue protrusion full and midline. Sensation: No decrease in sensation in upper or lower limbs to touch. Musculoskeletal: Steady gait. Motor all limbs grade 5. Myotatic reflexes: 2/4 throughout and symmetrical. Babinski reflexes: Absent. Coordination: Rapid alternating movements fast and smooth all limbs. SLR negative bilateral Paraspinal tenderness on a palpation of lower lumbar spine Labs: CBC Latest Ref Rng & Units 11/14/2020 01/14/2021 01/04/2022 WBC 3.70 - 11.00 k/uL 7.58 6.94 8.51 RBC 4.20 - 6.00 m/uL 4.55 4.66 4.93 HGB 13.2 - 17.4 g/dL - - - HEMOGLOBIN 13.0 - 17.0 g/dL 13.9 14.2 14.8 HEMATOCRIT 39.0 - 51.0 % 41.3 42.5 44.9 MCV 80.0 - 100.0 fL 90.8 91.2 91.1 MCH 26.0 - 34.0 pg 30.5 30.5 30.0 MCHC 30.5 - 36.0 g/dL 33.7 33.4 33.0 RDW 11.8 - 14.5 % - - - RDW-CV 11.5 - 15.0 % 12.9 13.5 13.2 PLATELETS 150 - 400 k/uL 208 199 222 MPV 9.0 - 12.7 fL 10.6 11.4 11.2 BASO% % 0.3 - 0.2 ABS NEUT (ANC) 1.45 - 7.50 k/uL 4.36 - 5.26 ABS LYMPH 1.00 - 4.00 k/uL 2.43 - 2.65 ABS MONO <0.87 k/uL 0.50 - 0.44 ABS EOSIN <0.46 k/uL 0.25 - 0.12 ABS BASO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 hours as needed. 18 g 1 Current Facility-Administered Medications Medication Dose Route Frequency Provider Last Rate Last Admin perflutren lipid microspheres 1.3 mL in NaCl (PF) 0.9% 10 mL injection (DEFINITY) INTRAVENOUS DIRECTED PRN Ludy Agustin MD sodium chloride 0.9 % (flush) 10 mL (BD POSIFLUSH) 10 mL INTRAVENOUS DIRECTED PRN Ludy Agustin MD Exam: Blood pressure 130/83, pulse 78, height 177.8 cm (5' 10), weight 98.6 kg (217 lb 6.4 oz), SpO2 100%. Body mass index is 31.19 kg/m . Station and Gait: Normal stance, normal gait. Range of Motion: normal Motor: Normal strength Sensory: normal Pain on Palpation: L5-S1 bilat midline Imaging: The following study/studies were reviewed with the patient during the visit: April 02, 2021 lumbarplain radiographs were reviewed with him. He has mild disc space narrowing fairly evenly throughoutlumbar region with facet arthrosis in lower lumbar segments. Alignment is normal and leg lengths appear normal. Assessment/Plan: Encounter Diagnosis ICD-10-CM 1. Arthropathy of lumbar facet joint M47.816 CONSULT TO SPINE INTERVENTION CONSULT TO PHYSICAL THERAPY 2. Chronic midline thoracic back pain M54.6 CONSULT TO PHYSICAL THERAPY G89.29 3. Chronic right-sided low back pain with right-sided sciatica M54.41 CONSULT TO SPINE INTERVENTION G89.29 CONSULT TO PHYSICAL THERAPY RTC: after a full course of PT and injections at L5-S1 Other/Discussion: He had about 7 to 8 months of relief from his last L5-S1 facet injections by Dr. Moreno. I think it is reasonable for him to go back and try that again for the lumbosacral pain. For his midline thoracic pain, I would have him start with some supervised PT but I will see if PT can address both areas for him as well. I have encouraged strong mobilization if he obtains good pain relief from the L5-S1 injections. He is trying to lose some of his extra weight and get back to a more normal physique.. He carries his extra weight primarily in the lower anterior abdomen and I think that his efforts and weight loss would be helpful for his low back pain Time spent: 30 minutes today with this patient visit. This includes [id number] time, review of chart records regarding conservative care history, spine- pertinent imaging, and communication/care coordination with referring provider, problem-specific history-taking and counseling/education regarding treatment options. This document has been created with the use of voice recognition technology. It may contain inaccuracies: (e.g. misspellings, inaccurate syntax or word sense) that have escaped review. Becka Islas MA documented in this encounterMer[facility]07-21-2022 Miscellaneous Notes* Telephone Encounter - Mary Lloyd Ma - 01/16/2022 1:54 PM EDT Patient was notified and transferred to equipment scheduler Mary Lloyd Ma * Telephone Encounter - Ludy Agustin MD - 01/16/2022 1:33 PM EDT He has this documented in his chart, but his last echo in 2019 showed normal mitral valve. He did not have a murmur on his recent exam. Would not have him see cardiology at this point, but will reorder echo since he had a passing out episode recently. * Telephone Encounter - Kim Kim LPN - 01/16/2022 12:53 PM EDT Spoke with patient on phone today regarding separate matter. Patient asked at that time if I could let his PCP know that a few years back he saw on his MyChart records that when he was having a similar issue he was diagnosed with Mitral valve prolapse. H e wanted to be sure his provider was aware of this and wanted to know if he should see a speech coach. Informed patient that his question would be routed to his provider for review and would get back with him once we had an answer. Patient voiced understanding. documented in this encounterMercy [facility]07-11-2022 History of Present illness Narrative* Kim Kim LPN - 01/06/2022 12:06 PM EDT EVENT MONITOR DISPOSABLE PATCH INSTRUCTIONS Patient Name: Reji Ponce [facility] Number: [id number] Skin prepped and cleansed with alcohol Patch secured to prepped area Monitor Activated Serial #: [id number] Patient Instructed: 1.) Prescribed order timeframe 2.) Bathing guidelines 3.) Usage of event button and diary documentation 4.) Return of monitor at the end of prescribed order 5.) Call with problems [phone] or [phone] ext. [phone] Patient expresses a good understanding of instructions Kim Kim LPN * Ludy Agustin MD - 01/06/2022 10:13 AM EDT Chief Complaint Patient presents with: Syncope: 01/03/22 and went to ER but left due to wait got bloodwork completed i HPI Reji Victor is a 46 year old male who presents here today for Above Complaints.. Patient was evaluated in our office on 01/02 for lightheadedness 2/2 diarrhea/heat exhaustion with ERvisit on the day prior. Orthostatics were positive in the office and he was instructed to push PO fluids and continue OTC anti diarrheals PRN. Patient then called in with syncopal episode the following day while walking with persistent lightheadedness. Did hit his head and had small bump on left forehead. [place] like his heart was fluttering before he passed out. Denies chest pain, SOB, vision changes, slurred speech, facial droop, headache . Recommended he return to the ED for further workup. Patient apparently went to the ER, but left without being seen. Requested labs which were completed 2 days ago and were normal. Since 01/03, states that his diarrhea has resolved and his lightheadedness has improved significantly. Has not had any syncopal episodes or palpitations since. Thinks he may have a had a black stool 2 days ago without bright red blood or worsening abdomen. Past medical history, appointments, medications, allergies reviewed. Previous Medical History PAST MEDICAL HISTORY Diagnosis Date Asthma Colon polyps GI in [place] COPD (chronic obstructive pulmonary disease) (HCC) FHx: colon cancer Mother GERD (gastroesophageal reflux disease) Hiatal hernia HTN (hypertension) Incisional hernia 04/14/2018 Added automatically from request for surgery [id number] Kidney stone Lower abdominal pain 06/11/2017 Microhematuria 06/11/2017 Mitral valve prolapse Multiple thyroid nodules Obesity (BMI 30.0-34.9) Osteoarthritis right knee PTSD (post-traumatic stress disorder) Spinal stenosis Tobacco use Quit 11/2017 Umbilical hernia 04/14/2018 Added automatically from request for surgery [id number] Previous Surgical History PAST SURGICAL HISTORY Procedure Laterality Date ARTHROSCOPY KNEE DIAGNOSTIC W/WO SYNOVIAL BX SPX Right 2000 Arthroscopy, knee CAPSULE ENDOSCOPY ESOPHAGEAL 11/25/2019 CHOLECYSTECTOMY 2014 COLONOSCOPY 06/2017 Normal COLONOSCOPY 2017 polyps COLONOSCOPY 08/25/2018 normal, repeat in [address] Quintanilla COLONOSCOPY FLX DX W/COLLJ SPEC WHEN PFRMD 08/15/2019 normal, repeat in 5 years due to family history CYSTOSCOPY,+URETEROSCOPY EGD 2017 Small hiatal hernia EGD 01/2018 EGD 08/25/2018 gastritis, GERD, hiatal hernia EGD 08/15/2019 Duodenitis, gastritis. Neg. - H. Pylori. EYE SURGERY HX 1990s GI TRC IMG INTRALUMINAL ESOPHAGUS-ILEUM W/I&R 11/25/2019 Delayed gastric transit. Rapid small bowel transit. Otherwise normal LEG SURGERY HX Right 1999 ORIF Tib-fib PAST SURGICAL HISTORY OF Right 2000 Hardware removal right leg PAST SURGICAL HISTORY OF 12/2019 Back injections REPAIR FIRST ABDOMINAL WALL HERNIA 04/28/2018 Hernia repair, incisional SIGMOIDOSCOPY 11/03/2019 poor anal sphincter tone Family History FAMILY HISTORY Problem Relation Age of Onset Colon Cancer Mother early 50s Diabetes Mother Heart Mother Hypertension Mother Diabetes Father Heart Father [place] at age 63 Hypertension Father Colon Cancer Father No Known Problems Sister Patient Allergies ALLERGIES Allergen Reactions Adhesive Tape-Silic* Rash Hydrocodone-Acetami* GI Upset Current Medications Current Outpatient Medications on File Prior to Visit Medication Sig traZODone (DESYREL) 100 mg tablet Take 2 tablets by mouth daily at bedtime. hyoscyamine sublingual (LEVSIN/SL) 0.125 mg Dissolve 1 tablet under the tongue every 4 hours as needed. albuterol HFA (PROVENTIL HFA, VENTOLIN HFA) 90 mcg/actuation inhaler Inhale 2 Puffs as instructed every 4 hours as needed. No current facility-administered medications on file prior to visit. Social History Social History Tobacco Use Smoking status: Current Every Day Smoker Packs/day: 1.50 Years: 20.00 Pack years: 30.00 Types: Cigarettes Smokeless tobacco: Current User Types: Chew Tobacco comment: Quit smoking in 07/2017, started again end of 08/2017, quit again beginning of 11/2017 Vaping Use Vaping Use: Never used Substance Use Topics Alcohol use: Not Currently Comment: rarely Drug use: Never Review of Symptoms REVIEW OF SYSTEMS See HPI EXAM: BP 104/72 Pulse 89 Resp 16 Wt 97.3 kg (214 lb 6.4 oz) SpO2 98% BMI 30.76 kg/m BP w/Orthostatic Vitals Date and Time Orthostatic BP Orthostatic Pulse BP Pulse BP Position BP Site BP Cuff Size 01/06/22 1050 102/80 69 -- -- Standing Right Arm -- 01/06/22 1049 102/74 68 -- -- Sitting Right Arm -- 01/06/22 1048 140/72 62 -- -- Supine Right Arm -- 01/06/22 1014 -- -- 104/72 89 -- -- -- Peak Flow Date and Time PF Resp 01/06/22 1014 -- 16 General Appearance: Well appearing, alert, in no acute distress, well-hydrated, well nourished.. Skin: Skin color, texture, turgor normal, no suspicious rashes or lesions. Head: Normocephalic. No bruising or swelling from fall. Lungs: Lungs clear to auscultation. No wheezing, rhonchi, rales.. Heart: RRR without murmur, gallop, or rubs. No ectopy. Abdomen: Normal abdominal exam, Abdomen soft, non-tender. Bowel sounds normal. No masses, organomegaly. Extremities: No deformities, edema, skin discoloration, clubbing or cyanosis. Good capillary refill. Health Maintenance List COVID-19 VACCINE(1) Never done HEPATITIS C SCREENING Never done PNEUMOCOCCAL(2 - PCV) due on 09/17/2018 DEPRESSION SCREENING due on 01/14/2022 INFLUENZA(1) due on 02/27/2022 COLORECTAL CANCER SCREENING due on 08/15/2024 LIPID SCREEN due on 09/07/2024 DIABETES SCREEN due on 01/04/2025 DTAP,TDAP,TD(2 - Td or Tdap) due on 01/12/2028 HIV SCREENING Completed Data reviewed Component Latest Ref Rng & Units 01/04/2022 WBC 3.70 - 11.00 k/uL 8.51 RBC 4.20 - 6.00 m/uL 4.93 Hemoglobin 13.0 - 17.0 g/dL 14.8 Hematocrit 39.0 - 51.0 % 44.9 MCV 80.0 - 100.0 fL 91.1 MCH 26.0 - 34.0 pg 30.0 MCHC 30.5 - 36.0 g/dL 33.0 RDW-CV 11.5 - 15.0 % 13.2 Platelet Count 150 - 400 k/uL 222 MPV 9.0 - 12.7 fL 11.2 Neut% % 61.9 Abs Neut (ANC) 1.45 - 7.50 k/uL 5.26 Lymph% % 31.1 Abs Lymph 1.00 - 4.00 k/uL 2.65 [place]% % 5.2 Abs [place] <0.87 k/uL 0.44 Eosin% % 1.4 Abs Eosin <0.46 k/uL 0.12 Baso% % 0.2 Abs Baso <0.11 k/uL <0.03 Immature Gran % % 0.2 IMMATURE GRANS (ABS) <0.10 k/uL <0.03 NRBC /100 WBC 0.0 Absolute nRBC <0.01 k/uL <0.01 DTYPE Auto Protein, Total 6.0 - 8.5 g/dL 7.0 Albumin 3.2 - 5.0 g/dL 3.9 Calcium 8.5 - 10.5 mg/dL 9.9 Bilirubin, Total 0.2 - 1.0 mg/dL 0.4 Alkaline Phosphatase 45 - 117 U/L 84 AST 8 - 34 U/L 26 ALT 13 - 61 U/L 13 Glucose 70 - 100 mg/dL 89 BUN 7 - 26 mg/dL 12 Creatinine 0.50 - 1.40 mg/dL 0.98 Sodium 136 - 145 mmol/L 139 Potassium 3.5 - 5.1 mmol/L 5.1 Chloride 98 - 107 mmol/L 107 CO2 21 - 32 mmol/L 27 Anion Gap 5 - 16 mmol/L 5 eGFR >=60 mL/min/1.73m 95 Magnesium 1.6 - 2.6 mg/dL 2.1 TSH 0.358 - 3.740 mIU/L 2.156 EKG: NSR @ 64 bpm ASSESSMENT/PLAN: 1. Syncope and collapse - ICD9: 780.2, ICD10: R55 (primary diagnosis) EKG normal today.Labs negative/normal. Will obtain 14 holter monitor after - ECG COMPLETE - OUTSIDE VENDOR CARDIAC OUTPATIENT EXTENDED RHYTHM RECORDING (WITHOUT TELEMETRY) 2. Orthostatic hypotension - ICD9: 458.0, ICD10: I95.1 Positive orthostatics today. Encouraged patient to continue pushing PO fluids, may use imodium PRN for diarrhea. Discussed rest, standing slowly. Red flags for re-assessment reviewed with patient in detail. 3. Postural lightheadedness - ICD9: 780.4, ICD10: R42 4. Black stool - ICD9: 792.1, ICD10: K92.1 - FECAL OCCULT BLOOD TEST 5. Palpitations - ICD9: 785.1, ICD10: R00.2 Obtain holter monitor for palpitations and syncope. - OUTSIDE VENDOR CARDIAC OUTPATIENT EXTENDED RHYTHM RECORDING (WITHOUT TELEMETRY) 6. Diarrhea, unspecified type - ICD9: 787.91, ICD10: R19.7 Improved. Ludy Agustin MD documented in this encounterMer[facility]07-08-2022 Miscellaneous Notes* Telephone Encounter - Toni Joyce RN - 01/03/2022 4:58 PM EDT Pt called and is notified of providers message and instructions. Pt voices understanding. He will come get labs done tomorrow. Pt scheduled for 1020 on Thursday01/06/22. Toni Joyce RN * Telephone Encounter - Ludy Agustin MD - 01/03/2022 4:09 PM EDT I can order some labs for him to come in for tomorrow morning. Unfortunately, I do not have any openings to see him today. I would recommend he schedule repeat OV on Thursday to re-evaluate him and discuss further cardiac workup for passing out episode. Should be resting at home and push PO fluids asdiscussed yesterday in office. If he passes out again, lightheadedness worsens, he develops chest pain, SOB, palpitations, slurredspeech, facial droop, headache, vision changes would have him return to the ED. * Telephone Encounter - Divine Saenz LPN - 01/03/2022 3:49 PM EDT Patient calling he went to [facility] ER and waited and waited and left without being seen. [facility] [place] and waited and left there also. Patient said I can not just sit there for hours. Patient is asking PCP for lab work orders, he can do labs and see what is going on? Please advise documented in this encounterMer[facility]07-08-2022 Miscellaneous Notes* Telephone Encounter - Carlie Lucas LPN - 01/03/2022 10:17 AM EDT Patient telephoned. Instructed to be seen at the ER. Agreeable, will go at this time. Carlie Lucas LPN * Telephone Encounter - Ludy Agustin MD - 01/03/2022 8:47 AM EDT If he had passing out episode this morning and still feels lightheaded, would have him return to the ED for further evaluation, repeat labs, and EKG. * Telephone Encounter - Ester Davis RN - 01/03/2022 8:17 AM EDT Patient phoned to report he went down to feed the animals this morning, passed out on the way there. Was not out long. Had 1 episode of diarrhea this morning. Reports the diarrhea yesterday was only in the morning. Reports he is still lightheaded and feeling a little weak. Had a CHRISTIANSEN last night, but not today. Has a little bit of abdominal cramping/bloating, but has had this for years. No nausea orvomiting. Ears are fine. Drinking plenty of fluids, including pedialyte. Urinating fine. Today is the 3rd day of this. Eating mashed potatoes and toast. Understands he needs to change positions slowly, sitting 2 minutes before standing. Asking pcp to advise. Agreeable to ER if condition worsens. documented in this encounterMercy [facility]07-08-2022 Miscellaneous Notes* Telephone Encounter - Carlie Lucas LPN - 01/03/2022 10:16 AM EDT Patient telephoned. Instructed to be seen at the ER. Agreeable, will go at this time. Carlie Lucas LPN * Telephone Encounter - Ludy Agustin MD - 01/03/2022 10:12 AM EDT He needs to go to the ED for persistent symptoms and passing out episode. They can give him a letter there. Please instruct patient to go to the ED now. documented in this encounterMercy [facility]07-07-2022 History of Present illness Narrative* Ludy Agustin MD - 01/02/2022 4:26 PM EDT Chief Complaint Patient presents with: ER F/U: dizziness, weakness, facial tingling occasionally and leg cramps. Diarrhea seems to have resolved. HPI Reji Victor is a 46 year old male who presents here today for ER Follow Up.. Patient was evaluated at [place] [facility] in [place] after arriving via EMS with complaint of dizziness. Symptoms apparently started when he was working outside in high temperatures earlier in the day. Noted he had an episode of watery diarrhea earlier in the morning. Treated with IV fluids which did resolve his symptoms. VSS. Workup negative for sepsis, LEO, CVA, UTI. EKG normal. Discharged home with instructions for heat exhaustion and diarrhea. Advised follow up with our office. Since discharge, patient has had total of 3 episodes of loose stools which he is treating with imodium OTC. Has been drinking pedialyte and water today and still has some lightheadedness when he goesfrom sitting to standing. Lasts for a few seconds and then resolves. Has not had any passing out episodes. Has not been working outside today. Denies chest pain or palpitations, nausea, vomiting, fever, chills, abdominal pain, hematochezia, melena, LE edema. Past medical history, appointments, medications, allergies reviewed. Previous Medical History PAST MEDICAL HISTORY Diagnosis Date Asthma Colon polyps GI in [place] COPD (chronic obstructive pulmonary disease) (HCC) FHx: colon cancer Mother GERD (gastroesophageal reflux disease) Hiatal hernia HTN (hypertension) Incisional hernia 04/14/2018 Added automatically from request for surgery [id number] Kidney stone Lower abdominal pain 06/11/2017 Microhematuria 06/11/2017 Mitral valve prolapse Multiple thyroid nodules Obesity (BMI 30.0-34.9) Osteoarthritis right knee PTSD (post-traumatic stress disorder) Spinal stenosis Tobacco use Quit 11/2017 Umbilical hernia 04/14/2018 Added automatically from request for surgery [id number] Previous Surgical History PAST SURGICAL HISTORY Procedure Laterality Date ARTHROSCOPY KNEE DIAGNOSTIC W/WO SYNOVIAL BX SPX Right 2000 Arthroscopy, knee CAPSULE ENDOSCOPY ESOPHAGEAL 11/25/2019 CHOLECYSTECTOMY 2014 COLONOSCOPY 06/2017 Normal COLONOSCOPY 2016 polyps COLONOSCOPY 08/25/2018 normal, repeat in [address] Quintanilla COLONOSCOPY FLX DX W/COLLJ SPEC WHEN PFRMD 08/15/2019 normal, repeat in 5 years due to family history CYSTOSCOPY,+URETEROSCOPY EGD 2016 Small hiatal hernia EGD 01/2018 EGD 08/25/2018 gastritis, GERD, hiatal hernia EGD 08/15/2019 Duodenitis, gastritis. Neg. - H. Pylori. EYE SURGERY HX 1990s GI TRC IMG INTRALUMINAL ESOPHAGUS-ILEUM W/I&R 11/25/2019 Delayed gastric transit. Rapid small bowel transit. Otherwise normal LEG SURGERY HX Right 1999 ORIF Tib-fib PAST SURGICAL HISTORY OF Right 2000 Hardware removal right leg PAST SURGICAL HISTORY OF 12/2019 Back injections REPAIR FIRST ABDOMINAL WALL HERNIA 04/28/2018 Hernia repair, incisional SIGMOIDOSCOPY 11/03/2019 poor anal sphincter tone Family History FAMILY HISTORY Problem Relation Age of Onset Colon Cancer Mother early 50s Diabetes Mother Heart Mother Hypertension Mother Diabetes Father Heart Father [place] at age 63 Hypertension Father Colon Cancer Father No Known Problems Sister Patient Allergies ALLERGIES Allergen Reactions Adhesive Tape-Silic* Rash Hydrocodone-Acetami* GI Upset Current Medications Current Outpatient Medications on File Prior to Visit Medication Sig traZODone (DESYREL) 100 mg tablet Take 2 tablets by mouth daily at bedtime. hyoscyamine sublingual (LEVSIN/SL) 0.125 mg Dissolve 1 tablet under the tongue every 4 hours as needed. lidocaine-menthol (LIDALL) 4-1 % ptmd Apply 1 Patch to affected area once daily. (Patient not taking: Reported on 11/21/2021 ) dicyclomine (BENTYL) 10 mg capsule Take 2 capsules by mouth before meals and at bedtime. (Patient not taking: Reported on 11/21/2021 ) albuterol HFA (PROVENTIL HFA, VENTOLIN HFA) 90 mcg/actuation inhaler Inhale 2 Puffs as instructed every 4 hours as needed. Blood Pressure Monitor kit Electronic monitor and cuff. Take blood pressure in am and as needed. Dx: I.10 (Patient not taking: Reported on 11/21/2021 ) No current facility-administered medications on file prior to visit. Social History Social History Tobacco Use Smoking status: Current Every Day Smoker Packs/day: 1.50 Years: 20.00 Pack years: 30.00 Types: Cigarettes Smokeless tobacco: Current User Types: Chew Tobacco comment: Quit smoking in 07/2017, started again end of 08/2017, quit again beginning of 11/2017 Vaping Use Vaping Use: Never used Substance Use Topics Alcohol use: Not Currently Comment: rarely Drug use: Never Review of Symptoms REVIEW OF SYSTEMS See HPI EXAM: BP 112/78 Pulse 74 Temp 36.5 C (97.7 F) Resp 18 Wt 98.7 kg (217 lb 9.6 oz) SpO2 97% BMI31.22 kg/m BP w/Orthostatic Vitals Date and Time Orthostatic BP Orthostatic Pulse BP Pulse BP Position BP Site BP Cuff Size 01/02/22 1656 98/72 74 -- -- Standing Left Arm -- 01/02/22 1655 122/80 69 -- -- Sitting Left Arm -- 01/02/22 1654 108/76 64 -- -- Supine Left Arm -- 01/02/22 1636 -- -- 112/78 74 -- -- -- Peak Flow Date and Time PF Resp 01/02/22 1636 -- 18 General Appearance: Well appearing, alert, in no acute distress, well-hydrated, well nourished.. Skin: Skin color, texture, turgor normal, no suspicious rashes or lesions. Lungs: Lungs clear to auscultation. No wheezing, rhonchi, rales.. Heart: RRR without murmur, gallop, or rubs. No ectopy. Abdomen: Normal abdominal exam, Abdomen soft, non-tender. Bowel sounds normal. No masses, organomegaly. Extremities: No deformities, edema, skin discoloration, clubbing or cyanosis. Good capillary refill. . Health Maintenance List COVID-19 VACCINE(1) Never done HEPATITIS C SCREENING Never done PNEUMOCOCCAL(2 - PCV) due on 09/17/2018 DEPRESSION SCREENING due on 01/14/2022 INFLUENZA(1) due on 02/27/2022 DIABETES SCREEN due on 11/15/2023 COLORECTAL CANCER SCREENING due on 08/15/2024 LIPID SCREEN due on 09/07/2024 DTAP,TDAP,TD(2 - Td or Tdap) due on 01/12/2028 HIV SCREENING Completed ASSESSMENT/PLAN: 1. Orthostatic hypotension - ICD9: 458.0, ICD10: I95.1 (primary diagnosis) Positive orthostatics today. Discussed pushing PO fluids, imodium for diarrhea, standing slowly, and rest. Red flags for re-assessment reviewed with patient in detail. 2. Postural lightheadedness - ICD9: 780.4, ICD10: R42 3. Diarrhea, unspecified type - ICD9: 787.91, ICD10: R19.7 Ludy Agustin MD documented in this encounter[facility] History of Present illness Narrative* Greg Smith PA-C - 11/21/2021 3:28 PM EDT Images from the original note were not included. JANICE Cleary [facility] [address] [address] Dear Ludy Agustin MD, Reji Victor is a very pleasant 46 year old male who comes in to the office on 11/21/2021 for follow-up regarding his Lumbar spine. Has lower back, hips, and legs pain. Pain stops in the knee area, both sides. Has lower back pain for years but this past Thursday (11/16/21) pain got a lot worse. Level of the pain is at 8/10. Has tingling in the feet. Spouse accompanies the patient today. Subjective: Compared to his last visit he is worse. Mr. Victor is here for follow up after the pain got worse.He went to [place] emergency department recently where CT scan was completed. He did not bring the scan or the radiologist's interpretation with him today. I was able to see a portion of the radiologist's interpretation on the care everywhere functionality. ROS: Since last visit-patient DENIES fevers, chills, night sweats, unexpected weight loss or gain, abdominal pain, progressive weakness, paralysis, loss of bowel/bladder control, saddle numbness, loss of coordination. and Since last visit--patient indicates NEW presence of: recent stumbling. Current Outpatient Medications Medication Sig Dispense Refill traZODone (DESYREL) 150 mg tablet Take 1 tablet by mouth daily at bedtime. 90 tablet 1 hyoscyamine sublingual (LEVSIN/SL) 0.125 mg Dissolve 1 tablet under the tongue every 4 hours as needed. 90 tablet 1 albuterol HFA (PROVENTIL HFA, VENTOLIN HFA) 90 mcg/actuation inhaler Inhale 2 Puffs as instructed every 4 hours as needed. 18 g 1 lidocaine-menthol (LIDALL) 4-1 % ptmd Apply 1 Patch to affected area once daily. (Patient not taking: Reported on 11/21/2021 ) dicyclomine (BENTYL) 10 mg capsule Take 2 capsules by mouth before meals and at bedtime. (Patient not taking: Reported on 11/21/2021 ) 240 capsule 1 Blood Pressure Monitor kit Electronic monitor and cuff. Take blood pressure in am and as needed. Dx: I.10 (Patient not taking: Reported on 11/21/2021 ) 1 Kit 0 No current facility-administered medications for this visit. Exam: Blood pressure 127/73, pulse 73, height 177.8 cm (5' 10), weight 99.2 kg (218 lb 12.8 oz), SpO2 98%. Body mass index is 31.39 kg/m . Station and Gait: flexed posture and antalgic gait leaning forward and favoring the right lower extremity Motor: Diminished bilat hip flexors at 4/5--appears generalized decondidioning Sensory: Normal today-describes occasional N/T in right thigh when riding in a car Reflexes: normoreflexic at 2/4 bilat LE Pain on Palpation: Right PSIS. Imaging: The following study/studies were reviewed with the patient during the visit: March, lumbar XRs mild degenerative changes were noted and essentially nothing more than age-appropriate wear and tear evenly throughout lumbar region. No listhesis or fracture or scoliosis appreciated. Recent CT showed some mild foraminal stenosis L3 through S1 on both sides right may be a little worse than the left on the L5-S1 level Assessment/Plan: Encounter Diagnosis ICD-10-CM 1. Chronic right-sided low back pain with right-sided sciatica M54.41 CONSULT TO PHYSICAL THERAPY G89.29 2. Spinal stenosis of lumbosacral region M48.07 CONSULT TO PHYSICAL THERAPY RTC: after a full course of PT Other/Discussion: He will start PT for this primarily right PSIS pain. If he still has persistent symptoms at the end of PT, I would consider repeating lumbar MRI. Last scan was in 2019 and really did not show any severe issues. There was disc degeneration and some mild foraminal narrowing at that point at the L4-5 level. Time spent: 35 minutes today with this patient visit. This includes wabn-yv-muyq time, review of chart records regarding conservative care history, spine- pertinent imaging, and communication/care coordination with referring provider, problem-specific history-taking and counseling/education regarding treatment options. This document has been created with the use of voice recognition technology. It may contain inaccuracies: (e.g. misspellings, inaccurate syntax or word sense) that have escaped review. JANICE Guillen MA documented in this encounterMer[facility] Hospital Discharge instructions Patient Education 11/19/2021 14:30:37 Herniated Intervertebral Disk Herniated Intervertebral Disk A herniated disk happens when a spinal disk tears. Spinal disks are gel-filled cushions that sit between the bones of the spine (vertebrae). If a disk tears, the center may bulge out. The disk may then press on nearby nerves. This can cause severe pain. Numbness or tingling in an arm or leg may also occur. You may need X-rays of the spine. If you've had the pain for a few weeks and it is not getting better after treatment, you may need an MRI scan. Treatment for a herniated disk usually involves pain medicines and home care. Surgery is not usually done to treat a herniated disk unless the nerve problem is causing weakness or numbness. Home care Medicines may be prescribed to help relieve pain, spasm, and swelling. You may be given a prescription. Or you may be told to use an tpwm-[id number]-[id number] pain reliever such as ibuprofen or naproxen. Takeall medicines as directed. For neck pain: Use a pillow that supports your head and keeps your spine in a neutral position. Don't tilt your head forward or backward. For back pain: Try not to sit for long periods, especially if your low back is affected. Sitting puts more stress on the low back than standing or walking. Sleep on a firm mattress with a pillow under your knees. Have a regular exercise program to help strengthen the muscles that support the spine. Avoid complete bed rest. It usually isn t helpful. It may even make your condition worse. General care During the first 2 days after a pain flare-up, put an ice pack or bag of frozen peas on the painfularea for 20 minutes. You can make your own ice pack by putting ice cubes in a plastic bag. Wrap thebag in a thin towel. Use the ice pack every 2 to 4 hours. This helps reduce swelling and pain. Physical therapy or osteopathic manipulative therapy may help if the pain doesn t go away. Talk with your healthcare provider about these therapies. Follow-up care Follow up with your healthcare provider, or as advised. This is very important. If you ve been referred to a specialist, make an appointment right away. When to seek medical advice Call your healthcare provider right away if any of these occur: Back pain gets worse New weakness, numbness, or pain in one or both arms or legs Numbness or tingling in your buttock or groin area Your foot drags as you walk or you have new weakness in a foot You can t control your bowel or bladder You aren t able to have a bowel movement or pass urine Fever of 100.4 F (38 C) or higher, or as advised New symptoms that were not present during today s visit [id number] The [employer] ([employer]). [address] [place] [address], [place] [address]. All rights reserved. This information is not intended as a substitute for professional medical care. Always follow yourhealthcare professional's instructions. Follow Up Care 11/19/2021 10:05:04 With:EMELIA REGAN, FALLON Radford, Neurosurgery Address: [address] [place] [address] [address] [place] [address] [phone] When:2-4 days [facility] 04-04-2022 Miscellaneous Notes* Telephone Encounter - Bozena Diaz MA - 09/30/2021 1:56 PM EDT Patient has been identified by name and date of : Yes Pending Prescriptions Disp Refills TRAZODONE 150 MG TABLET 90 tablet 1 Sig: Take 1 tablet by mouth daily at bedtime. EMEKA: No RX INSTRUCTIONS: Patient aware RX will be sent to pharmacy. No need to notify patient. Bozena Diaz MA Rain: 03/2021 No appointment scheduled Last refill: 04/2021 90 tablets 1 refill * Telephone Encounter - Sofie Shepherd - 09/30/2021 12:38 PM EDT Pharmacy verified in Epic Patient has been identified by name and date of : Yes Patient aware RX will be sent to pharmacy. No need to notify patient. Patient phones for refill(s): Pending Prescriptions Disp Refills TRAZODONE 150 MG TABLET 90 tablet 1 Sig: Take 1 tablet by mouth daily at bedtime. EMEKA: No Date of last office visit : 04/02/2021 Date of next office visit : Visit date not found Last 2 Encounter Wt Readings: Date: Wt: 08/05/2021 100.2 kg (221 lb) 04/02/2021 97.1 kg (214 lb) Please advise. Sofie Logan Pss documented in this encounterMer[facility]10-[facility] History of Present illness Narrative* Danette Ramirez, RT(R) - 04/02/2021 3:40 PM EDT Radiology Service Progress Note PATIENT NAME: Reji Victor DATE OF SERVICE: April 02, 2021 TIME: 3:53 PM PATIENT IDENTITY VERIFICATION COMPLETED USING TWO (2) IDENTIFIERS: Name and Date of confirmedby patient verbally. FALL SCREENING: Has the patient had 2 falls in the last year or 1 fall with injury or currently using an Ambulatory Assistive Device (Walker, Cane, Wheelchair, Crutches, etc.)? No PATIENT GENDER DATA: Male PATIENT RELEVANT IMPLANT DATA REVIEWED: Not Applicable RADIOLOGY DEPARTMENT: General X-ray: Exam(s) Completed: Spine X-Ray(s): Lumbar AP / LAT / L5-S1 Upper Extremity X-Ray(s): Elbow, left PERIPHERAL IV DATA: Not applicable SIGNED BY: RT Paco(R) April 02, 2021 3:53 PM documented in this encounterMer[facility]07-17-2021 Hospital Discharge instructions* Instructions* Armond Cardenas PA - 01/12/2021 Please follow-up your primary care physician. Additionally I gave you an incentive spirometer, please use this several times daily to encourage proper ventilation. This will reduce the likelihood of you developing a pneumonia secondary to the rib fractures. You can use Tylenol and Motrin as needed for pain. Additionally I did prescribe you lidocaine patches this will likely be the best option to manage her pain. * Attachments The following attachments cannot be sent through Care Everywhere. * Rib Fracture (Faroese) documented in this [facility] Work Phone: [phone]) 211-787506-13-2021 Hospital Discharge instructions* Instructions* Uma Antunez PA-C - 12/09/2020 Ensure to continue taking deep inspirations multiple times per hour, everyday to prevent pneumonia.Alternate between Tylenol and ibuprofen for pain control at home. * Attachments The following attachments cannot be sent through Care Everywhere. * Rib Contusion (Faroese) documented in this [facility] Work Phone: [phone]) 230-318810-17-2018 History of Past illness Narrative* Problem Noted Date Resolved Date Incisional hernia 04/14/2018 08/05/2019 Overview: Added automatically from request for surgery [id number] Umbilical hernia 04/14/2018 08/05/2019 Overview: Added automatically from request for surgery [id number] documented as of this encounter (statuses as of 09/30/2021) [facility] of Past illness Narrative* Problem Noted Date Resolved Date Incisional hernia 04/14/2018 08/05/2019 Overview: Added automatically from request for surgery [id number] Umbilical hernia 04/14/2018 08/05/2019 Overview: Added automatically from request for surgery [id number] documented as of this encounter (statuses as of 11/21/2021) [facility] of Past illness Narrative* Problem Noted Date Resolved Date Incisional hernia 04/14/2018 08/05/2019 Overview: Added automatically from request for surgery [id number] Umbilical hernia 04/14/2018 08/05/2019 Overview: Added automatically from request for surgery [id number] documented as of this encounter (statuses as of 01/03/2022) [facility] of Past illness Narrative* Problem Noted Date Resolved Date Incisional hernia 04/14/2018 08/05/2019 Overview: Added automatically from request for surgery [id number] Umbilical hernia 04/14/2018 08/05/2019 Overview: Added automatically from request for surgery [id number] documented as of this encounter (statuses as of 01/03/2022) [facility] of Past illness Narrative* Problem Noted Date Resolved Date Incisional hernia 04/14/2018 08/05/2019 Overview: Added automatically from request for surgery [id number] Umbilical hernia 04/14/2018 08/05/2019 Overview: Added automatically from request for surgery [id number] documented as of this encounter (statuses as of 01/07/2022) [facility] of Past illness Narrative* Problem Noted Date Resolved Date Incisional hernia 04/14/2018 08/05/2019 Overview: Added automatically from request for surgery [id number] Umbilical hernia 04/14/2018 08/05/2019 Overview: Added automatically from request for surgery [id number] documented as of this encounter (statuses as of 01/07/2022) [facility] of Past illness Narrative* Problem Noted Date Resolved Date Incisional hernia 04/14/2018 08/05/2019 Overview: Added automatically from request for surgery [id number] Umbilical hernia 04/14/2018 08/05/2019 Overview: Added automatically from request for surgery [id number] documented as of this encounter (statuses as of 01/16/2022) [facility] of Past illness Narrative* Problem Noted Date Resolved Date Incisional hernia 04/14/2018 08/05/2019 Overview: Added automatically from request for surgery [id number] Umbilical hernia 04/14/2018 08/05/2019 Overview: Added automatically from request for surgery [id number] documented as of this encounter (statuses as of 01/22/2022) [facility] of [facility] illness Narrative* Problem Noted Date Resolved Date Incisional hernia 04/14/2018 08/05/2019 Overview: Added automatically from request for surgery [id number] Umbilical hernia 04/14/2018 08/05/2019 Overview: Added automatically from request for surgery [id number] documented as of this encounter (statuses as of 01/24/2022) [facility] of [facility] illness Narrative* Problem Noted Date Resolved Date Incisional hernia 04/14/2018 08/05/2019 Overview: Added automatically from request for surgery [id number] Umbilical hernia 04/14/2018 08/05/2019 Overview: Added automatically from request for surgery [id number] documented as of this encounter (statuses as of 01/28/2022) [facility] of Past illness Narrative* Problem Noted Date Resolved Date Incisional hernia 04/14/2018 08/05/2019 Overview: Added automatically from request for surgery [id number] Umbilical hernia 04/14/2018 08/05/2019 Overview: Added automatically from request for surgery [id number] documented as of this encounter (statuses as of 01/30/2022) [facility] of [facility] illness Narrative* Problem Noted Date Resolved Date Incisional hernia 04/14/2018 08/05/2019 Overview: Added automatically from request for surgery [id number] Umbilical hernia 04/14/2018 08/05/2019 Overview: Added automatically from request for surgery [id number] documented as of this encounter (statuses as of 02/04/2022) [facility] of Past illness Narrative* Problem Noted Date Resolved Date Incisional hernia 04/14/2018 08/05/2019 Overview: Added automatically from request for surgery [id number] Umbilical hernia 04/14/2018 08/05/2019 Overview: Added automatically from request for surgery [id number] documented as of this encounter (statuses as of 02/05/2022) [facility]* TRE LEIVA MD: PERFORM, SIGN, VERIFY Event Display: Anesthesiology Progress Note Authored Date: [id number] Patient: REJI VICTOR Age: 48 years Sex: Male : 1975 Associated Diagnoses: None Author: TRE LEIVA MD Postoperative Information Post Operative Info: Post op day: POD0. Patient location: ICU. Assessment Postanesthesia assessment Vitals: Vital signs from flowsheet : Vital Signs 12/24/2023 18:40 EDT Heart Rate Monitored 86 bpm Respiratory Rate 20 br/min Systolic Blood Pressure Non-Invasive 119 mmHg Diastolic Blood Pressure Non-Invasive 76 mmHg Mean Arterial Pressure (NBP) 89 mmHg Reason For Taking VItal Signs Routine 12/24/2023 18:10 EDT Heart Rate Monitored 81 bpm Respiratory Rate 20 br/min Systolic Blood Pressure Non-Invasive 125 mmHg Diastolic Blood Pressure Non-Invasive 83 mmHg Mean Arterial Pressure (NBP) 96 mmHg 12/24/2023 17:42 EDT Heart Rate Monitored 83 bpm Respiratory Rate 17 br/min Systolic Blood Pressure Non-Invasive 114 mmHg Diastolic Blood Pressure Non-Invasive 69 mmHg Mean Arterial Pressure (NBP) 75 mmHg Reason For Taking VItal Signs Routine 12/24/2023 17:25 EDT Heart Rate Monitored 88 bpm Respiratory Rate 14 br/min Systolic Blood Pressure Non-Invasive 109 mmHg Diastolic Blood Pressure Non-Invasive 80 mmHg Mean Arterial Pressure (NBP) 90 mmHg 12/24/2023 17:10 EDT Heart Rate Monitored 85 bpm Respiratory Rate 16 br/min Systolic Blood Pressure Non-Invasive 114 mmHg Diastolic Blood Pressure Non-Invasive 82 mmHg Mean Arterial Pressure (NBP) 93 mmHg 12/24/2023 16:55 EDT Heart Rate Monitored 88 bpm Respiratory Rate 17 br/min Systolic Blood Pressure Non-Invasive 111 mmHg Diastolic Blood Pressure Non-Invasive 54 mmHg LOW Mean Arterial Pressure (NBP) 68 mmHg 12/24/2023 16:50 EDT Respiratory Rate - Anes 0 br/min br/min 12/24/2023 16:45 EDT Respiratory Rate - Anes 0 br/min br/min 12/24/2023 16:41 EDT Temperature Oral 37.4 DegC HI Heart Rate Monitored 86 bpm Respiratory Rate 17 br/min Systolic Blood Pressure Non-Invasive 97 mmHg Diastolic Blood Pressure Non-Invasive 62 mmHg Reason For Taking VItal Signs Routine 12/24/2023 16:40 EDT Respiratory Rate - Anes 0 br/min br/min 12/24/2023 16:35 EDT Respiratory Rate - Anes 0 br/min br/min 12/24/2023 16:30 EDT Heart Rate Monitored 90 bpm bpm Respiratory Rate - Anes 18 br/min br/min 12/24/2023 16:26 EDT Systolic Blood Pressure Non-Invasive 150 mmHg mmHg Diastolic Blood Pressure Non-Invasive 138 mmHg mmHg 12/24/2023 16:25 EDT Respiratory Rate - Anes 13 br/min br/min 12/24/2023 16:22 EDT Systolic Blood Pressure Non-Invasive 106 mmHg mmHg Diastolic Blood Pressure Non-Invasive 75 mmHg mmHg 12/24/2023 16:20 EDT Heart Rate Monitored 90 bpm bpm Respiratory Rate - Anes 11 br/min br/min 12/24/2023 16:19 EDT Systolic Blood Pressure Non-Invasive 102 mmHg mmHg Diastolic Blood Pressure Non-Invasive 69 mmHg mmHg 12/24/2023 16:16 EDT Systolic Blood Pressure Non-Invasive 102 mmHg mmHg Diastolic Blood Pressure Non-Invasive 69 mmHg mmHg 12/24/2023 16:15 EDT Heart Rate Monitored 87 bpm bpm Respiratory Rate - Anes 14 br/min br/min 12/24/2023 16:13 EDT Systolic Blood Pressure Non-Invasive 103 mmHg mmHg Diastolic Blood Pressure Non-Invasive 67 mmHg mmHg 12/24/2023 16:10 EDT Heart Rate Monitored 87 bpm bpm Respiratory Rate - Anes 9 br/min br/min Systolic Blood Pressure Non-Invasive 105 mmHg mmHg Diastolic Blood Pressure Non-Invasive 82 mmHg mmHg 12/24/2023 16:07 EDT Systolic Blood Pressure Non-Invasive 114 mmHg mmHg Diastolic Blood Pressure Non-Invasive 75 mmHg mmHg 12/24/2023 16:05 EDT Heart Rate Monitored 88 bpm bpm Respiratory Rate - Anes 14 br/min br/min 12/24/2023 16:04 EDT Systolic Blood Pressure Non-Invasive 105 mmHg mmHg Diastolic Blood Pressure Non-Invasive 73 mmHg mmHg 12/24/2023 16:01 EDT Systolic Blood Pressure Non-Invasive 107 mmHg mmHg Diastolic Blood Pressure Non-Invasive 65 mmHg mmHg 12/24/2023 16:00 EDT Temperature (Route Not Specified) 36.63 DegC DegC Heart Rate Monitored 87 bpm bpm Respiratory Rate - Anes 15 br/min br/min 12/24/2023 15:58 EDT Systolic Blood Pressure Non-Invasive 117 mmHg mmHg Diastolic Blood Pressure Non-Invasive 75 mmHg mmHg 12/24/2023 15:55 EDT Temperature (Route Not Specified) 36.6 DegC DegC Heart Rate Monitored 85 bpm bpm Respiratory Rate - Anes 14 br/min br/min Systolic Blood Pressure Non-Invasive 120 mmHg mmHg Diastolic Blood Pressure Non-Invasive 87 mmHg mmHg 12/24/2023 15:52 EDT Systolic Blood Pressure Non-Invasive 129 mmHg mmHg Diastolic Blood Pressure Non-Invasive 101 mmHg mmHg 12/24/2023 15:50 EDT Temperature (Route Not Specified) 36.58 DegC DegC Heart Rate Monitored 86 bpm bpm Respiratory Rate - Anes 16 br/min br/min 12/24/2023 15:49 EDT Systolic Blood Pressure Non-Invasive 115 mmHg mmHg Diastolic Blood Pressure Non-Invasive 79 mmHg mmHg 12/24/2023 15:46 EDT Systolic Blood Pressure Non-Invasive 116 mmHg mmHg Diastolic Blood Pressure Non-Invasive 76 mmHg mmHg 12/24/2023 15:45 EDT Temperature (Route Not Specified) 36.55 DegC DegC Heart Rate Monitored 83 bpm bpm Respiratory Rate - Anes 14 br/min br/min 12/24/2023 15:43 EDT Systolic Blood Pressure Non-Invasive 120 mmHg mmHg Diastolic Blood Pressure Non-Invasive 79 mmHg mmHg 12/24/2023 15:40 EDT Temperature (Route Not Specified) 36.53 DegC DegC Heart Rate Monitored 89 bpm bpm Respiratory Rate - Anes 13 br/min br/min Systolic Blood Pressure Non-Invasive 103 mmHg mmHg Diastolic Blood Pressure Non-Invasive 61 mmHg mmHg 12/24/2023 15:37 EDT Systolic Blood Pressure Non-Invasive 115 mmHg mmHg Diastolic Blood Pressure Non-Invasive 76 mmHg mmHg 12/24/2023 15:35 EDT Temperature (Route Not Specified) 36.5 DegC DegC Heart Rate Monitored 82 bpm bpm Respiratory Rate - Anes 12 br/min br/min 12/24/2023 15:34 EDT Systolic Blood Pressure Non-Invasive 117 mmHg mmHg Diastolic Blood Pressure Non-Invasive 80 mmHg mmHg 12/24/2023 15:31 EDT Systolic Blood Pressure Non-Invasive 112 mmHg mmHg Diastolic Blood Pressure Non-Invasive 72 mmHg mmHg 12/24/2023 15:30 EDT Temperature (Route Not Specified) 36.46 DegC DegC Heart Rate Monitored 90 bpm bpm Respiratory Rate - Anes 12 br/min br/min 12/24/2023 15:28 EDT Systolic Blood Pressure Non-Invasive 105 mmHg mmHg Diastolic Blood Pressure Non-Invasive 70 mmHg mmHg 12/24/2023 15:25 EDT Temperature (Route Not Specified) 36.42 DegC DegC Heart Rate Monitored 82 bpm bpm Respiratory Rate - Anes 12 br/min br/min Systolic Blood Pressure Non-Invasive 96 mmHg mmHg Diastolic Blood Pressure Non-Invasive 69 mmHg mmHg 12/24/2023 15:22 EDT Systolic Blood Pressure Non-Invasive 112 mmHg mmHg Diastolic Blood Pressure Non-Invasive 72 mmHg mmHg 12/24/2023 15:20 EDT Temperature (Route Not Specified) 36.38 DegC DegC Heart Rate Monitored 81 bpm bpm Respiratory Rate - Anes 12 br/min br/min 12/24/2023 15:19 EDT Systolic Blood Pressure Non-Invasive 115 mmHg mmHg Diastolic Blood Pressure Non-Invasive 71 mmHg mmHg 12/24/2023 15:16 EDT Systolic Blood Pressure Non-Invasive 110 mmHg mmHg Diastolic Blood Pressure Non-Invasive 80 mmHg mmHg 12/24/2023 15:15 EDT Temperature (Route Not Specified) 36.38 DegC DegC Heart Rate Monitored 87 bpm bpm Respiratory Rate - Anes 12 br/min br/min 12/24/2023 15:13 EDT Systolic Blood Pressure Non-Invasive 115 mmHg mmHg Diastolic Blood Pressure Non-Invasive 85 mmHg mmHg 12/24/2023 15:10 EDT Temperature (Route Not Specified) 36.38 DegC DegC Heart Rate Monitored 81 bpm bpm Respiratory Rate - Anes 12 br/min br/min Systolic Blood Pressure Non-Invasive 103 mmHg mmHg Diastolic Blood Pressure Non-Invasive 70 mmHg mmHg 12/24/2023 15:07 EDT Systolic Blood Pressure Non-Invasive 103 mmHg mmHg Diastolic Blood Pressure Non-Invasive 71 mmHg mmHg 12/24/2023 15:05 EDT Temperature (Route Not Specified) 36.39 DegC DegC Heart Rate Monitored 100 bpm bpm Respiratory Rate - Anes 12 br/min br/min 12/24/2023 15:04 EDT Systolic Blood Pressure Non-Invasive 110 mmHg mmHg Diastolic Blood Pressure Non-Invasive 76 mmHg mmHg 12/24/2023 15:01 EDT Systolic Blood Pressure Non-Invasive 110 mmHg mmHg Diastolic Blood Pressure Non-Invasive 73 mmHg mmHg 12/24/2023 15:00 EDT Temperature (Route Not Specified) 36.39 DegC DegC Heart Rate Monitored 80 bpm bpm Respiratory Rate - Anes 12 br/min br/min 12/24/2023 14:58 EDT Systolic Blood Pressure Non-Invasive 109 mmHg mmHg Diastolic Blood Pressure Non-Invasive 66 mmHg mmHg 12/24/2023 14:55 EDT Temperature (Route Not Specified) 36.36 DegC DegC Heart Rate Monitored 79 bpm bpm Respiratory Rate - Anes 12 br/min br/min Systolic Blood Pressure Non-Invasive 101 mmHg mmHg Diastolic Blood Pressure Non-Invasive 61 mmHg mmHg 12/24/2023 14:54 EDT Systolic Blood Pressure Non-Invasive 101 mmHg mmHg Diastolic Blood Pressure Non-Invasive 63 mmHg mmHg 12/24/2023 14:52 EDT Systolic Blood Pressure Non-Invasive 114 mmHg mmHg Diastolic Blood Pressure Non-Invasive 73 mmHg mmHg 12/24/2023 14:51 EDT Systolic Blood Pressure Non-Invasive 116 mmHg mmHg Diastolic Blood Pressure Non-Invasive 85 mmHg mmHg 12/24/2023 14:50 EDT Temperature (Route Not Specified) 36.31 DegC DegC Heart Rate Monitored 76 bpm bpm Respiratory Rate - Anes 12 br/min br/min 12/24/2023 14:49 EDT Systolic Blood Pressure Non-Invasive 114 mmHg mmHg Diastolic Blood Pressure Non-Invasive 82 mmHg mmHg 12/24/2023 14:46 EDT Systolic Blood Pressure Non-Invasive 102 mmHg mmHg Diastolic Blood Pressure Non-Invasive 68 mmHg mmHg 12/24/2023 14:45 EDT Temperature (Route Not Specified) 36.27 DegC DegC Heart Rate Monitored 79 bpm bpm Respiratory Rate - Anes 12 br/min br/min 12/24/2023 14:44 EDT Systolic Blood Pressure Non-Invasive 104 mmHg mmHg Diastolic Blood Pressure Non-Invasive 69 mmHg mmHg 12/24/2023 14:40 EDT Temperature (Route Not Specified) 36.23 DegC DegC Heart Rate Monitored 80 bpm bpm Respiratory Rate - Anes 12 br/min br/min Systolic Blood Pressure Non-Invasive 115 mmHg mmHg Diastolic Blood Pressure Non-Invasive 83 mmHg mmHg 12/24/2023 14:37 EDT Systolic Blood Pressure Non-Invasive 107 mmHg mmHg Diastolic Blood Pressure Non-Invasive 68 mmHg mmHg 12/24/2023 14:35 EDT Temperature (Route Not Specified) 36.12 DegC DegC Heart Rate Monitored 84 bpm bpm Respiratory Rate - Anes 12 br/min br/min 12/24/2023 14:34 EDT Systolic Blood Pressure Non-Invasive 112 mmHg mmHg Diastolic Blood Pressure Non-Invasive 74 mmHg mmHg 12/24/2023 14:31 EDT Systolic Blood Pressure Non-Invasive 121 mmHg mmHg Diastolic Blood Pressure Non-Invasive 76 mmHg mmHg 12/24/2023 14:30 EDT Temperature (Route Not Specified) 36.06 DegC DegC Heart Rate Monitored 82 bpm bpm Respiratory Rate - Anes 12 br/min br/min 12/24/2023 14:27 EDT Systolic Blood Pressure Non-Invasive 113 mmHg mmHg Diastolic Blood Pressure Non-Invasive 81 mmHg mmHg 12/24/2023 14:25 EDT Temperature (Route Not Specified) 35.98 DegC DegC Heart Rate Monitored 84 bpm bpm Respiratory Rate - Anes 12 br/min br/min Systolic Blood Pressure Non-Invasive 98 mmHg mmHg Diastolic Blood Pressure Non-Invasive 70 mmHg mmHg 12/24/2023 14:22 EDT Systolic Blood Pressure Non-Invasive 95 mmHg mmHg Diastolic Blood Pressure Non-Invasive 70 mmHg mmHg 12/24/2023 14:20 EDT Temperature (Route Not Specified) 35.89 DegC DegC Heart Rate Monitored 85 bpm bpm Respiratory Rate - Anes 12 br/min br/min 12/24/2023 14:19 EDT Systolic Blood Pressure Non-Invasive 105 mmHg mmHg Diastolic Blood Pressure Non-Invasive 66 mmHg mmHg 12/24/2023 14:16 EDT Systolic Blood Pressure Non-Invasive 115 mmHg mmHg Diastolic Blood Pressure Non-Invasive 75 mmHg mmHg 12/24/2023 14:15 EDT Temperature (Route Not Specified) 35.81 DegC DegC Heart Rate Monitored 82 bpm bpm Respiratory Rate - Anes 12 br/min br/min 12/24/2023 14:13 EDT Systolic Blood Pressure Non-Invasive 91 mmHg mmHg Diastolic Blood Pressure Non-Invasive 70 mmHg mmHg 12/24/2023 14:10 EDT Temperature (Route Not Specified) 35.72 DegC DegC Heart Rate Monitored 85 bpm bpm Respiratory Rate - Anes 12 br/min br/min Systolic Blood Pressure Non-Invasive 92 mmHg mmHg Diastolic Blood Pressure Non-Invasive 60 mmHg mmHg 12/24/2023 14:07 EDT Systolic Blood Pressure Non-Invasive 105 mmHg mmHg Diastolic Blood Pressure Non-Invasive 64 mmHg mmHg 12/24/2023 14:05 EDT Temperature (Route Not Specified) 35.63 DegC DegC Heart Rate Monitored 87 bpm bpm Respiratory Rate - Anes 12 br/min br/min 12/24/2023 14:04 EDT Systolic Blood Pressure Non-Invasive 123 mmHg mmHg Diastolic Blood Pressure Non-Invasive 82 mmHg mmHg 12/24/2023 14:01 EDT Systolic Blood Pressure Non-Invasive 107 mmHg mmHg Diastolic Blood Pressure Non-Invasive 73 mmHg mmHg 12/24/2023 14:00 EDT Temperature (Route Not Specified) 35.57 DegC DegC Heart Rate Monitored 79 bpm bpm Respiratory Rate - Anes 12 br/min br/min 12/24/2023 13:58 EDT Systolic Blood Pressure Non-Invasive 111 mmHg mmHg Diastolic Blood Pressure Non-Invasive 70 mmHg mmHg 12/24/2023 13:55 EDT Temperature (Route Not Specified) 35.5 DegC DegC Heart Rate Monitored 75 bpm bpm Respiratory Rate - Anes 12 br/min br/min Systolic Blood Pressure Non-Invasive 107 mmHg mmHg Diastolic Blood Pressure Non-Invasive 74 mmHg mmHg 12/24/2023 13:52 EDT Systolic Blood Pressure Non-Invasive 100 mmHg mmHg Diastolic Blood Pressure Non-Invasive 69 mmHg mmHg 12/24/2023 13:50 EDT Temperature (Route Not Specified) 35.44 DegC DegC Heart Rate Monitored 80 bpm bpm Respiratory Rate - Anes 12 br/min br/min 12/24/2023 13:49 EDT Systolic Blood Pressure Non-Invasive 98 mmHg mmHg Diastolic Blood Pressure Non-Invasive 69 mmHg mmHg 12/24/2023 13:46 EDT Systolic Blood Pressure Non-Invasive 113 mmHg mmHg Diastolic Blood Pressure Non-Invasive 71 mmHg mmHg 12/24/2023 13:45 EDT Temperature (Route Not Specified) 35.36 DegC DegC Heart Rate Monitored 80 bpm bpm Respiratory Rate - Anes 12 br/min br/min 12/24/2023 13:43 EDT Systolic Blood Pressure Non-Invasive 114 mmHg mmHg Diastolic Blood Pressure Non-Invasive 80 mmHg mmHg 12/24/2023 13:40 EDT Temperature (Route Not Specified) 35.25 DegC DegC Heart Rate Monitored 78 bpm bpm Respiratory Rate - Anes 12 br/min br/min Systolic Blood Pressure Non-Invasive 96 mmHg mmHg Diastolic Blood Pressure Non-Invasive 65 mmHg mmHg 12/24/2023 13:37 EDT Systolic Blood Pressure Non-Invasive 97 mmHg mmHg Diastolic Blood Pressure Non-Invasive 68 mmHg mmHg 12/24/2023 13:35 EDT Temperature (Route Not Specified) 35.15 DegC DegC Heart Rate Monitored 78 bpm bpm Respiratory Rate - Anes 12 br/min br/min 12/24/2023 13:34 EDT Systolic Blood Pressure Non-Invasive 109 mmHg mmHg Diastolic Blood Pressure Non-Invasive 73 mmHg mmHg 12/24/2023 13:30 EDT Temperature (Route Not Specified) 35.02 DegC DegC Heart Rate Monitored 77 bpm bpm Respiratory Rate - Anes 11 br/min br/min Systolic Blood Pressure Non-Invasive 101 mmHg mmHg Diastolic Blood Pressure Non-Invasive 75 mmHg mmHg 12/24/2023 13:28 EDT Systolic Blood Pressure Non-Invasive 92 mmHg mmHg Diastolic Blood Pressure Non-Invasive 64 mmHg mmHg 12/24/2023 13:25 EDT Temperature (Route Not Specified) 34.89 DegC DegC Heart Rate Monitored 67 bpm bpm Respiratory Rate - Anes 11 br/min br/min Systolic Blood Pressure Non-Invasive 99 mmHg mmHg Diastolic Blood Pressure Non-Invasive 64 mmHg mmHg 12/24/2023 13:21 EDT Systolic Blood Pressure Non-Invasive 98 mmHg mmHg Diastolic Blood Pressure Non-Invasive 71 mmHg mmHg 12/24/2023 13:20 EDT Temperature (Route Not Specified) 34.78 DegC DegC Heart Rate Monitored 66 bpm bpm Respiratory Rate - Anes 11 br/min br/min 12/24/2023 13:19 EDT Systolic Blood Pressure Non-Invasive 94 mmHg mmHg Diastolic Blood Pressure Non-Invasive 61 mmHg mmHg 12/24/2023 13:16 EDT Systolic Blood Pressure Non-Invasive 103 mmHg mmHg Diastolic Blood Pressure Non-Invasive 64 mmHg mmHg 12/24/2023 13:15 EDT Temperature (Route Not Specified) 34.68 DegC DegC Heart Rate Monitored 87 bpm bpm Respiratory Rate - Anes 11 br/min br/min 12/24/2023 13:13 EDT Systolic Blood Pressure Non-Invasive 92 mmHg mmHg Diastolic Blood Pressure Non-Invasive 56 mmHg mmHg 12/24/2023 13:10 EDT Temperature (Route Not Specified) 34.55 DegC DegC Heart Rate Monitored 69 bpm bpm Respiratory Rate - Anes 11 br/min br/min Systolic Blood Pressure Non-Invasive 97 mmHg mmHg Diastolic Blood Pressure Non-Invasive 65 mmHg mmHg 12/24/2023 13:07 EDT Systolic Blood Pressure Non-Invasive 105 mmHg mmHg Diastolic Blood Pressure Non-Invasive 70 mmHg mmHg 12/24/2023 13:05 EDT Temperature (Route Not Specified) 34.45 DegC DegC Heart Rate Monitored 68 bpm bpm Respiratory Rate - Anes 11 br/min br/min 12/24/2023 13:04 EDT Systolic Blood Pressure Non-Invasive 118 mmHg mmHg Diastolic Blood Pressure Non-Invasive 72 mmHg mmHg 12/24/2023 13:01 EDT Systolic Blood Pressure Non-Invasive 119 mmHg mmHg Diastolic Blood Pressure Non-Invasive 79 mmHg mmHg 12/24/2023 13:00 EDT Temperature (Route Not Specified) 34.34 DegC DegC Heart Rate Monitored 66 bpm bpm Respiratory Rate - Anes 11 br/min br/min 12/24/2023 12:58 EDT Systolic Blood Pressure Non-Invasive 97 mmHg mmHg Diastolic Blood Pressure Non-Invasive 62 mmHg mmHg 12/24/2023 12:55 EDT Temperature (Route Not Specified) 34.21 DegC DegC Heart Rate Monitored 65 bpm bpm Respiratory Rate - Anes 11 br/min br/min Systolic Blood Pressure Non-Invasive 108 mmHg mmHg Diastolic Blood Pressure Non-Invasive 69 mmHg mmHg 12/24/2023 12:52 EDT Systolic Blood Pressure Non-Invasive 120 mmHg mmHg Diastolic Blood Pressure Non-Invasive 82 mmHg mmHg 12/24/2023 12:50 EDT Temperature (Route Not Specified) 34.15 DegC DegC Heart Rate Monitored 58 bpm bpm Respiratory Rate - Anes 10 br/min br/min 12/24/2023 12:49 EDT Systolic Blood Pressure Non-Invasive 84 mmHg mmHg Diastolic Blood Pressure Non-Invasive 55 mmHg mmHg 12/24/2023 12:45 EDT Temperature (Route Not Specified) 34.08 DegC DegC Heart Rate Monitored 59 bpm bpm Respiratory Rate - Anes 10 br/min br/min Systolic Blood Pressure Non-Invasive 99 mmHg mmHg Diastolic Blood Pressure Non-Invasive 68 mmHg mmHg 12/24/2023 12:42 EDT Systolic Blood Pressure Non-Invasive 86 mmHg mmHg Diastolic Blood Pressure Non-Invasive 58 mmHg mmHg 12/24/2023 12:41 EDT Systolic Blood Pressure Non-Invasive 89 mmHg mmHg Diastolic Blood Pressure Non-Invasive 60 mmHg mmHg 12/24/2023 12:40 EDT Temperature (Route Not Specified) 34.01 DegC DegC Heart Rate Monitored 57 bpm bpm Respiratory Rate - Anes 10 br/min br/min Systolic Blood Pressure Non-Invasive 79 mmHg mmHg Diastolic Blood Pressure Non-Invasive 54 mmHg mmHg 12/24/2023 12:36 EDT Systolic Blood Pressure Non-Invasive 105 mmHg mmHg Diastolic Blood Pressure Non-Invasive 65 mmHg mmHg 12/24/2023 12:35 EDT Heart Rate Monitored 65 bpm bpm Respiratory Rate - Anes 10 br/min br/min 12/24/2023 12:34 EDT Systolic Blood Pressure Non-Invasive 81 mmHg mmHg Diastolic Blood Pressure Non-Invasive 52 mmHg mmHg 12/24/2023 12:30 EDT Heart Rate Monitored 64 bpm bpm Respiratory Rate - Anes 10 br/min br/min Systolic Blood Pressure Non-Invasive 91 mmHg mmHg Diastolic Blood Pressure Non-Invasive 56 mmHg mmHg 12/24/2023 12:28 EDT Systolic Blood Pressure Non-Invasive 70 mmHg mmHg Diastolic Blood Pressure Non-Invasive 38 mmHg mmHg 12/24/2023 12:25 EDT Heart Rate Monitored 76 bpm bpm Respiratory Rate - Anes 10 br/min br/min Systolic Blood Pressure Non-Invasive 109 mmHg mmHg Diastolic Blood Pressure Non-Invasive 66 mmHg mmHg 12/24/2023 12:23 EDT Systolic Blood Pressure Non-Invasive 121 mmHg mmHg 12/24/2023 12:20 EDT Heart Rate Monitored 77 bpm bpm Respiratory Rate - Anes 10 br/min br/min 12/24/2023 12:18 EDT Systolic Blood Pressure Non-Invasive 143 mmHg mmHg Diastolic Blood Pressure Non-Invasive 102 mmHg mmHg 12/24/2023 12:15 EDT Heart Rate Monitored 71 bpm bpm Respiratory Rate - Anes 0 br/min br/min Systolic Blood Pressure Non-Invasive 129 mmHg mmHg Diastolic Blood Pressure Non-Invasive 83 mmHg mmHg 12/24/2023 12:12 EDT Systolic Blood Pressure Non-Invasive 146 mmHg mmHg Diastolic Blood Pressure Non-Invasive 88 mmHg mmHg 12/24/2023 12:10 EDT Respiratory Rate - Anes 0 br/min br/min 12/24/2023 11:02 EDT Temperature Oral 36.8 DegC Peripheral Pulse Rate 80 bpm Respiratory Rate 20 br/min Systolic Blood Pressure Non-Invasive 106 mmHg Diastolic Blood Pressure Non-Invasive 73 mmHg Blood Pressure Method Automatic Blood Pressure Location Left arm Blood Pressure Cuff Size Medium Reason For Taking VItal Signs Routine 12/24/2023 6:42 EDT Temperature Oral 36.7 DegC Peripheral Pulse Rate 76 bpm Respiratory Rate 20 br/min Systolic Blood Pressure Non-Invasive 109 mmHg Diastolic Blood Pressure Non-Invasive 79 mmHg Blood Pressure Method Automatic Blood Pressure Location Right arm Blood Pressure Cuff Size Medium Reason For Taking VItal Signs Routine 12/24/2023 3:59 EDT Temperature Oral 36.6 DegC Peripheral Pulse Rate 65 bpm Respiratory Rate 20 br/min Systolic Blood Pressure Non-Invasive 106 mmHg Diastolic Blood Pressure Non-Invasive 49 mmHg <LLOW Blood Pressure Method Automatic Blood Pressure Location Right arm Reason For Taking VItal Signs Routine 12/23/2023 23:19 EDT Temperature Oral 37.0 DegC Apical Heart Rate 83 bpm Respiratory Rate 18 br/min Systolic Blood Pressure Non-Invasive 126 mmHg Diastolic Blood Pressure Non-Invasive 84 mmHg Reason For Taking VItal Signs Routine 12/23/2023 18:55 EDT Temperature Oral 36.6 DegC Peripheral Pulse Rate 72 bpm Respiratory Rate 18 br/min Systolic Blood Pressure Non-Invasive 135 mmHg Diastolic Blood Pressure Non-Invasive 92 mmHg HI Blood Pressure Method Automatic Blood Pressure Location Right arm Blood Pressure Cuff Size Medium Reason For Taking VItal Signs Routine 12/23/2023 14:35 EDT Temperature Oral 37.1 DegC Peripheral Pulse Rate 85 bpm Respiratory Rate 20 br/min Systolic Blood Pressure Non-Invasive 122 mmHg Diastolic Blood Pressure Non-Invasive 78 mmHg Mean Arterial Pressure (NBP) 92 mmHg Blood Pressure Method Automatic Blood Pressure Location Right arm Blood Pressure Cuff Size Medium Reason For Taking VItal Signs Routine 12/23/2023 10:45 EDT Temperature Oral 36.6 DegC Peripheral Pulse Rate 86 bpm Respiratory Rate 20 br/min Systolic Blood Pressure Non-Invasive 100 mmHg Diastolic Blood Pressure Non-Invasive 85 mmHg Blood Pressure Method Automatic Blood Pressure Location Right arm Blood Pressure Cuff Size Medium Reason For Taking VItal Signs Routine 12/23/2023 6:59 EDT Temperature Oral 36.5 DegC Peripheral Pulse Rate 64 bpm Respiratory Rate 18 br/min Systolic Blood Pressure Non-Invasive 100 mmHg Diastolic Blood Pressure Non-Invasive 63 mmHg 12/23/2023 2:57 EDT Temperature Oral 36.6 DegC Peripheral Pulse Rate 72 bpm Systolic Blood Pressure Non-Invasive 103 mmHg Diastolic Blood Pressure Non-Invasive 69 mmHg Blood Pressure Method Automatic Blood Pressure Location Right arm Reason For Taking VItal Signs Routine 12/23/2023 0:16 EDT Reason For Taking VItal Signs Routine . Mental status: at preoperative baseline. Respiratory function: respirations are non-labored, Stable. Respiratory support: none. CV function: Stable. Cardiovascular support: none. Pain: Satisfactory. Nausea status: Satisfactory. Postoperative hydration status: within normal limits. Notes: Patient is sufficiently recovered from anesthesia to participate in the evaluation. No follow-up care needed. No complications post-anesthesia.. Digitally Signed by TRE LEIVA MD on 12/24/2023 07:23 PM [facility] Evaluation + Plan note No data available for this section [facility] evaluation + Plan note Future Appointments Appointment Date:08/31/2023 10:30:00 AM Scheduled Provider: Location:[facility] Appointment Type:[employer] Appointment Date:09/14/2023 04:00:00 PM Scheduled Provider:KARISSA SALINAS DO Location:[facility] Appointment Type:PC OV Follow Up Future Scheduled Tests Laboratory* Thyroid Stimulating Hormone 08/14/23 * Free T4 08/14/23 * A1C Hemoglobin 08/14/23 * Lipid Profile 08/14/23 * Vitamin D Level 08/14/23 [facility] evaluation + Plan note Future Appointments Appointment Date:09/14/2023 04:00:00 PM Scheduled Provider:KARISSA SALINAS DO Location:[facility] Appointment Type:PC OV Follow Up Appointment Date:09/28/2023 10:30:00 AM Scheduled Provider: Location:[facility] Appointment Type:NS OV Future Scheduled Tests Laboratory* Thyroid Stimulating Hormone 08/14/23 * Free T4 08/14/23 * A1C Hemoglobin 08/14/23 * Lipid Profile 08/14/23 * Vitamin D Level 08/14/23 Radiology* XR Spine Lumbar AP/LAT/FLEX/EXT 08/31/23 [facility] evaluation + Plan note Future Appointments Appointment Date:09/21/2023 10:15:00 AM Scheduled Provider:Kwaku Smith PTA [id number] Location:[facility] Appointment Type:PT Treatment - [place] Appointment Date:09/23/2023 10:15:00 AM Scheduled Provider:Kwaku Smith PTA [id number] Location:[facility] Appointment Type:PT Treatment - [place] Appointment Date:09/28/2023 10:30:00 AM Scheduled Provider: Location:[facility] Appointment Type:NS OV Appointment Date:01/14/2024 07:20:00 AM Scheduled Provider:KARISSA SALINAS DO Location:[facility] Appointment Type:PC OV Lab Check Future Scheduled Tests Laboratory* Thyroid Stimulating Hormone 01/14/24 * A1C Hemoglobin 01/14/24 * Complete Blood Count 01/14/24 * Lipid Profile 01/14/24 * Hepatitis C Antibody IgG 01/14/24 * Vitamin D Level 01/14/24 * Complete Metabolic Panel 01/14/24 [facility] Evaluation + Plan note Future Appointments Appointment Date:09/29/2023 10:00:00 AM Scheduled Provider:Kwaku Smith [employer] [id number] Location:[facility] Appointment Type:PT Treatment - [place] Appointment Date:10/01/2023 10:15:00 AM Scheduled Provider:Kwaku Smith [employer] [id number] Location:[facility] Appointment Type:PT Treatment - [place] Appointment Date:10/15/2023 04:00:00 PM Scheduled Provider: Location:[facility] Appointment Type:MRI Spine Lumbar w/o Contrast Appointment Date:10/26/2023 09:00:00 AM Scheduled Provider:FALLON KAPOOR MD Location:[facility] Appointment Type:NS OV Appointment Date:01/14/2024 07:20:00 AM Scheduled Provider:KARISSA SALINAS DO Location:[facility] Appointment Type:PC OV Lab Check Future Scheduled Tests Laboratory* Thyroid Stimulating Hormone 01/14/24 * A1C Hemoglobin 01/14/24 * Complete Blood Count 01/14/24 * Lipid Profile 01/14/24 * Hepatitis C Antibody IgG 01/14/24 * Vitamin D Level 01/14/24 * Complete Metabolic Panel 01/14/24 Radiology* MRI Spine Lumbar w/o Contrast 10/15/23 [facility] evaluation + Plan note Future Appointments Appointment Date:10/29/2023 08:00:00 AM Scheduled Provider:KARISSA SALINAS DO Location:[facility] Appointment Type:PC OV Appointment Date:01/14/2024 07:20:00 AM Scheduled Provider:KARISSA SALINAS DO Location:[facility] Appointment Type:PC OV Lab Check Future Scheduled Tests Laboratory* Thyroid Stimulating Hormone 01/14/24 * A1C Hemoglobin 01/14/24 * Complete Blood Count 01/14/24 * Lipid Profile 01/14/24 * Hepatitis C Antibody IgG 01/14/24 * Vitamin D Level 01/14/24 * Complete Metabolic Panel 01/14/24 [facility] evaluation + Plan note Future Appointments Appointment Date:12/21/2023 09:15:00 AM Scheduled Provider: Location:[facility] Appointment Type:NS Post Op Appointment Date:01/14/2024 07:20:00 AM Scheduled Provider:KARISSA SALINAS DO Location:[facility] Appointment Type:PC OV Lab Check Appointment Date:04/12/2024 10:00:00 AM Scheduled Provider: Location:[facility] Appointment Type:US Renal Appointment Date:04/18/2024 11:00:00 AM Scheduled Provider:KARISSA SALINAS DO Location:[facility] Appointment Type:PC OV Follow Up Future Scheduled Tests Laboratory* Thyroid Stimulating Hormone 05/18/24 * Thyroid Stimulating Hormone 01/14/24 * A1C Hemoglobin 05/18/24 * A1C Hemoglobin 01/14/24 * Complete Blood Count 05/18/24 * Complete Blood Count 01/14/24 * Lipid Profile 05/18/24 * Lipid Profile 01/14/24 * Hepatitis C Antibody IgG 01/14/24 * Vitamin D Level 05/18/24 * Vitamin D Level 01/14/24 * Complete Metabolic Panel 05/18/24 * Complete Metabolic Panel 01/14/24 Radiology* US Renal 04/12/24 [facility] Evaluation + Plan note Future Appointments Appointment Date:12/21/2023 09:15:00 AM Scheduled Provider: Location:[facility] Appointment Type:NS Post Op Appointment Date:12/22/2023 08:00:00 PM Scheduled Provider: Location:[facility] Appointment Type:[facility] PSG (Polysomnograph) Appointment Date:01/14/2024 07:20:00 AM Scheduled Provider:KARISSA SALINAS DO Location:[facility] Appointment Type:PC OV Lab Check Appointment Date:04/12/2024 10:00:00 AM Scheduled Provider: Location:[facility] Appointment Type:US Renal Appointment Date:04/18/2024 11:00:00 AM Scheduled Provider:KARISSA SALINAS DO Location:[facility] Appointment Type:PC OV Follow Up Future Scheduled Tests Laboratory* Thyroid Stimulating Hormone 05/18/24 * Thyroid Stimulating Hormone 01/14/24 * A1C Hemoglobin 05/18/24 * A1C Hemoglobin 01/14/24 * Complete Blood Count 05/18/24 * Complete Blood Count 01/14/24 * Lipid Profile 05/18/24 * Lipid Profile 01/14/24 * Hepatitis C Antibody IgG 01/14/24 * Vitamin D Level 05/18/24 * Vitamin D Level 01/14/24 * Complete Metabolic Panel 05/18/24 * Complete Metabolic Panel 01/14/24 Radiology* US Renal 04/12/24 [facility] evaluation + Plan note Future Appointments Appointment Date:12/22/2023 10:30:00 AM Scheduled Provider: Location:[facility] Appointment Type:CT Spine Lumbar w/ Contrast Appointment Date:12/22/2023 01:15:00 PM Scheduled Provider: Location:[facility] Appointment Type:Telephone Appointment Date:01/06/2024 08:00:00 PM Scheduled Provider: Location:[facility] Appointment Type:[facility] PSG (Polysomnograph) Appointment Date:01/14/2024 07:20:00 AM Scheduled Provider:KARISSA SALINAS DO Location:[facility] Appointment Type:PC OV Lab Check Appointment Date:04/12/2024 10:00:00 AM Scheduled Provider: Location:[facility] Appointment Type:US Renal Appointment Date:04/18/2024 11:00:00 AM Scheduled Provider:KARISSA SALINAS DO Location:[facility] Appointment Type:PC OV Follow Up Future Scheduled Tests Laboratory* Thyroid Stimulating Hormone 05/18/24 * Thyroid Stimulating Hormone 01/14/24 * A1C Hemoglobin 05/18/24 * A1C Hemoglobin 01/14/24 * Complete Blood Count 05/18/24 * Complete Blood Count 01/14/24 * Lipid Profile 05/18/24 * Lipid Profile 01/14/24 * Hepatitis C Antibody IgG 01/14/24 * Vitamin D Level 05/18/24 * Vitamin D Level 01/14/24 * Complete Metabolic Panel 05/18/24 * Complete Metabolic Panel 01/14/24 Radiology* CT Spine Lumbar w/ Contrast 12/22/23 * US Renal 04/12/24 [facility] evaluation + Plan note Future Appointments Appointment Date:01/06/2024 08:00:00 PM Scheduled Provider: Location:[facility] Appointment Type:SL PSG (Polysomnograph) Appointment Date:01/14/2024 07:20:00 AM Scheduled Provider:KARISSA SALINAS DO Location:[facility] Appointment Type:PC OV Lab Check Appointment Date:04/12/2024 10:00:00 AM Scheduled Provider: Location:[facility] Appointment Type:US Renal Appointment Date:04/18/2024 11:00:00 AM Scheduled Provider:KARISSA SALINAS DO Location:[facility] Appointment Type:PC OV Follow Up Future Scheduled Tests Laboratory* Thyroid Stimulating Hormone 05/18/24 * Thyroid Stimulating Hormone 01/14/24 * A1C Hemoglobin 05/18/24 * A1C Hemoglobin 01/14/24 * Complete Blood Count 05/18/24 * Complete Blood Count 01/14/24 * Lipid Profile 05/18/24 * Lipid Profile 01/14/24 * Hepatitis C Antibody IgG 01/14/24 * Vitamin D Level 05/18/24 * Vitamin D Level 01/14/24 * Complete Metabolic Panel 05/18/24 * Complete Metabolic Panel 01/14/24 Radiology* US Renal 04/12/24 [facility] Evaluation + Plan note Future Appointments Appointment Date:01/07/2024 09:00:00 AM Scheduled Provider:TONI FRANCO Location:[facility] Appointment Type:PC OV TCM 60 Appointment Date:01/13/2024 09:45:00 AM Scheduled Provider: Location:[facility] Appointment Type:NS Post Op Appointment Date:01/14/2024 07:20:00 AM Scheduled Provider:KARISSA SALINAS DO Location:[facility] Appointment Type:PC OV Lab Check Appointment Date:04/12/2024 10:00:00 AM Scheduled Provider: Location:[facility] Appointment Type:US Renal Appointment Date:04/18/2024 11:00:00 AM Scheduled Provider:KARISSA SALINAS DO Location:[facility] Appointment Type:PC OV Follow Up Future Scheduled Tests Laboratory* Thyroid Stimulating Hormone 05/18/24 * Thyroid Stimulating Hormone 01/14/24 * A1C Hemoglobin 05/18/24 * A1C Hemoglobin 01/14/24 * Complete Blood Count 05/18/24 * Complete Blood Count 01/14/24 * Lipid Profile 05/18/24 * Lipid Profile 01/14/24 * Hepatitis C Antibody IgG 01/14/24 * Vitamin D Level 05/18/24 * Vitamin D Level 01/14/24 * Complete Metabolic Panel 05/18/24 * Complete Metabolic Panel 01/14/24 Radiology* CT Spine Lumbar w/ Contrast 12/28/23 * US Renal 04/12/24 [facility] evaluation + Plan note Future Appointments Appointment Date:01/14/2024 07:20:00 AM Scheduled Provider:KARISSA SALINAS DO Location:[facility] Appointment Type:PC OV TCM 40 Appointment Date:01/14/2024 08:30:00 AM Scheduled Provider: Location:[facility] Appointment Type:NS Post Op Appointment Date:01/20/2024 10:45:00 AM Scheduled Provider: Location:[facility] Appointment Type:NS OV Appointment Date:04/12/2024 10:00:00 AM Scheduled Provider: Location:[facility] Appointment Type:US Renal Appointment Date:04/18/2024 11:00:00 AM Scheduled Provider:KARISSA SALINAS DO Location:[facility] Appointment Type:PC OV Follow Up Future Scheduled Tests Laboratory* Thyroid Stimulating Hormone 05/18/24 * Thyroid Stimulating Hormone 01/14/24 * A1C Hemoglobin 05/18/24 * A1C Hemoglobin 01/14/24 * Complete Blood Count 05/18/24 * Complete Blood Count 01/14/24 * Lipid Profile 05/18/24 * Lipid Profile 01/14/24 * Hepatitis C Antibody IgG 01/14/24 * Vitamin D Level 05/18/24 * Vitamin D Level 01/14/24 * Complete Metabolic Panel 05/18/24 * Complete Metabolic Panel 01/14/24 Radiology* CT Spine Lumbar w/ Contrast 12/28/23 * US Renal 04/12/24 [facility] evaluation + Plan note Future Appointments Appointment Date:03/07/2024 02:15:00 PM Scheduled Provider:FALLON KAPOOR MD Location:[facility] Appointment Type:NS Post Op Appointment Date:04/12/2024 10:00:00 AM Scheduled Provider: Location:[facility] Appointment Type:US Renal Appointment Date:04/18/2024 11:00:00 AM Scheduled Provider:KARISSA SALINAS DO Location:[facility] Appointment Type:PC OV Follow Up Future Scheduled Tests Laboratory* Thyroid Stimulating Hormone 05/18/24 * Thyroid Stimulating Hormone 01/14/24 * A1C Hemoglobin 05/18/24 * A1C Hemoglobin 01/14/24 * Complete Blood Count 05/18/24 * Complete Blood Count 01/14/24 * Lipid Profile 05/18/24 * Lipid Profile 01/14/24 * Hepatitis C Antibody IgG 01/14/24 * Vitamin D Level 05/18/24 * Vitamin D Level 01/14/24 * Complete Metabolic Panel 05/18/24 * Complete Metabolic Panel 01/14/24 Radiology* CT Spine Lumbar w/ Contrast 12/28/23 * US Renal 04/12/24 [facility] Evaluation + Plan note Future Appointments Appointment Date:04/12/2024 10:00:00 AM Scheduled Provider: Location:[facility] Appointment Type:US Renal Appointment Date:04/18/2024 11:00:00 AM Scheduled Provider:KARISSA SALINAS DO Location:[facility] Appointment Type:PC OV Follow Up Future Scheduled Tests Laboratory* Thyroid Stimulating Hormone 05/18/24 * Thyroid Stimulating Hormone 01/14/24 * A1C Hemoglobin 05/18/24 * A1C Hemoglobin 01/14/24 * Complete Blood Count 05/18/24 * Complete Blood Count 01/14/24 * Lipid Profile 05/18/24 * Lipid Profile 01/14/24 * Hepatitis C Antibody IgG 01/14/24 * Vitamin D Level 05/18/24 * Vitamin D Level 01/14/24 * Complete Metabolic Panel 05/18/24 * Complete Metabolic Panel 01/14/24 Radiology* CT Spine Lumbar w/ Contrast 12/28/23 * US Renal 04/12/24 [facility] Evaluation + Plan note Future Appointments Appointment Date:04/12/2024 10:00:00 AM Scheduled Provider: Location:[facility] Appointment Type:US Renal Appointment Date:04/18/2024 11:00:00 AM Scheduled Provider:KARISSA SALINAS DO Location:[facility] Appointment Type:PC OV Follow Up Diagnostic Tests Pending * Troponin I High Sensitivity 03/23/24 Future Scheduled Tests Laboratory* Thyroid Stimulating Hormone 05/18/24 * Thyroid Stimulating Hormone 01/14/24 * A1C Hemoglobin 05/18/24 * A1C Hemoglobin 01/14/24 * Complete Blood Count 05/18/24 * Complete Blood Count 01/14/24 * Lipid Profile 05/18/24 * Lipid Profile 01/14/24 * Hepatitis C Antibody IgG 01/14/24 * Vitamin D Level 05/18/24 * Vitamin D Level 01/14/24 * Complete Metabolic Panel 05/18/24 * Complete Metabolic Panel 01/14/24 Radiology* CT Spine Lumbar w/ Contrast 12/28/23 * US Renal 04/12/24 [facility] Evaluation + Plan note Future Appointments Appointment Date:04/18/2024 11:00:00 AM Scheduled Provider:KARISSA SALINAS DO Location:[facility] Appointment Type: OV Follow Up Future Scheduled Tests Laboratory* Thyroid Stimulating Hormone 05/18/24 * Thyroid Stimulating Hormone 01/14/24 * A1C Hemoglobin 05/18/24 * A1C Hemoglobin 01/14/24 * Complete Blood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
== END 2025-01-04 10:46 | disposition home or self-care (01) ==
LOC: SDC 05:45 → AC 05:46
PROVIDERS: Student in an Organized Health Care Education/Training Program; Referring Provider Orthopaedic Surgery Sports Medicine; Visit Provider Orthopaedic Surgery Sports Medicine
PROC: (CPT 29805; principal; 2025-01-04 07:40)
DX: M75.42 Impingement syndrome of left shoulder (principal); J44.9 Chronic obstructive pulmonary disease, unspecified; K21.9 Gastro-esophageal reflux disease without esophagitis; F17.220 Nicotine dependence, chewing tobacco, uncomplicated; M75.102 Unspecified rotator cuff tear or rupture of left shoulder, not specified as traumatic; I10 Essential (primary) hypertension; F17.210 Nicotine dependence, cigarettes, uncomplicated; M25.512 Pain in left shoulder; E78.00 Pure hypercholesterolemia, unspecified; M67.814 Other specified disorders of tendon, left shoulder; M25.812 Other specified joint disorders, left shoulder
CPT/HCPCS: 29826; 29827; 01630; 36415; 80048; 85027; 93005; 94640; C1713; J2405